=== PATIENT | male | born 1935 | race Caucasian/White ===

== ENCOUNTER 2017-11-22 06:05 | Day surgery (SDC) | payer MEDICARE ==
[2017-11-21 12:34] VITALS: BMI 32.4
[2017-11-22] MEDS ORDERED: Diprivan 40 ML ONE (07:45)
--- NOTE | 2017-11-22 10:41 | ECHO ---
TRANSESOPHAGEAL ECHOCARDIGRAM: Date: 11/22/17 INDICATION: Atrial fibrillation and flutter. DETAILS: The patient underwent a transesophageal echocardiogram after being given short-acting Propofol. There were no complications or difficulties encountered when passing the probe. IMPRESSION: 1. Mild to moderate decrease in left ventricular systolic function. Ejection fraction is estimated at 35-40%. 2. Left atrial dilatation, which is moderate. 3. No evidence of left atrial left atrial appendage thrombus. 4. Mild aortic valve regurgitation. 5. Moderate mitral valve regurgitation. 6. Moderate tricuspid valve regurgitation. There were no difficulties or complications encountered.
--- NOTE | 2017-11-22 10:46 | OP ---
ELECTRICAL CARDIOVERSION: Electrical cardioversion was performed for atrial fibrillation and flutter back to normal sinus rhyth m. The patient was in atrial fibrillation this morning and was advised to undergo and electrical card ioversion of his atrial fibrillation back to sinus rhythm. This 82-year-old gentleman who has a histo ry of an ischemic cardiomyopathy, AICD implant, and arrhythmias was having difficulties with the shahab ce to the atrial fibrillation and therapies were discontinued as far as the interrogation due to the settings. These will need to be reinstated once the patient remains in sinus rhythm. He was taken to the recovery area where he underwent short acting propofol. The transesophageal echocardiogram was pe rformed first, which showed no evidence of left atrial or left atrial appendage thrombus. Using one a ttempt at 300 joules, he was successfully cardioverted back to a normal sinus rhythm without difficul ties or complications.
--- NOTE | 2017-11-22 10:55 | DIS ---
ADMITTING DIAGNOSIS: 1. Atrial fibrillation and flutter, which was paroxysmal. He had been maintaining atrial fibrillatio n recently and was advised to undergo electrical cardioversion. 2. Cardiomyopathy. 3. Coronary artery disease, status post bypass surgery. 4. History of chronic obstructive pulmonary disease. 5. Diastolic dysfunction. 6. Systolic dysfunction. 7. Rheumatoid arthritis. 8. History of myocardial infarction. 9. Status post AICD implant. DISCHARGE DIAGNOSES: 1. Atrial fibrillation and flutter, which was paroxysmal. He had been maintaining atrial fibrillatio n recently and was advised to undergo electrical cardioversion. 2. Cardiomyopathy. 3. Coronary artery disease, status post bypass surgery. 4. History of chronic obstructive pulmonary disease. 5. Diastolic dysfunction. 6. Systolic dysfunction. 7. Rheumatoid arthritis. 8. History of myocardial infarction. 9. Status post AICD implant. PROCEDURES IN THE HOSPITAL: Transesophageal echocardiogram and an electrical cardioversion of atrial fibrillation back to normal sinus rhythm. ADMISSION/DISCHARGE MEDICATIONS: His discharge medications will be the same as his admission medications. These include hydroxychloro quine, albuterol sulfate aerosol inhaler, Symbicort, Zyrtec, aspirin, Nexium, nitroglycerin p.r.n., H umira, furosemide, Coreg, alprazolam, Eliquis and Cozaar. PLAN: The patient will see me in the office in next month. He will continue his routine followups with elec trophysiologist and is to see them next week in the office. HOSPITAL COURSE: This is a very pleasant 82-year-old gentleman with a history of cardiomyopathy, coronary artery disea se, status post bypass surgery, status post AICD implant, and atrial fibrillation and flutter. He was advised to undergo an electrical cardioversion of his atrial fibrillation so that we could reinstate his atrial therapies of the AICD. He underwent the transesophageal echocardiogram and cardioversion today without difficulties or complications. He has remained stable. If his blood pressure and heart rate remain stable, he will be discharged home in the next 2-3 hours. We will interrogate the AICD pr ior to releasing the patient from the recovery area.
[2017-11-22] MEDS ORDERED: Propofol 200 MG/20 ML VIAL ONE (12:35)
[2017-11-22] MEDS ORDERED: PHENYLEPHRINE-NS 100 MCG/ML 10 ML SYRINGE ONE (12:35)
== END 2017-11-22 11:25 | disposition home or self-care (01) ==
LOC: CCL 06:05
PROVIDERS: ATTEND Internal Medicine Cardiovascular Disease
DX: I48.0 Paroxysmal atrial fibrillation (principal); I48.3 Typical atrial flutter; I25.5 Ischemic cardiomyopathy; I25.10 Atherosclerotic heart disease of native coronary artery without angina pectoris; J44.9 Chronic obstructive pulmonary disease, unspecified; M06.9 Rheumatoid arthritis, unspecified; I25.2 Old myocardial infarction; K21.9 Gastro-esophageal reflux disease without esophagitis; I11.0 Hypertensive heart disease with heart failure; I50.40 Unspecified combined systolic (congestive) and diastolic (congestive) heart failure; J45.909 Unspecified asthma, uncomplicated; Z79.01 Long term (current) use of anticoagulants; Z79.82 Long term (current) use of aspirin; Z79.899 Other long term (current) drug therapy; Z88.0 Allergy status to penicillin; Z91.041 Radiographic dye allergy status; Z95.1 Presence of aortocoronary bypass graft; Z95.810 Presence of automatic (implantable) cardiac defibrillator; Z90.49 Acquired absence of other specified parts of digestive tract; Z98.890 Other specified postprocedural states; Z87.891 Personal history of nicotine dependence
CPT/HCPCS: 92960; 93312; J2704

== ENCOUNTER 2018-10-06 23:39 | Inpatient (IN) | payer MEDICARE ==
[2018-10-07 00:44] LABS: #Lymphocytes 1.2 thou/uL (1.20-3.40); #Monocytes 1.1 thou/uL (0.11-0.59); #Neutrophils 11.5 thou/uL (1.40-6.50); %Basophils 0.2 % (0.0-1.0); %Eosinophils 0.3 % (0.0-10.0); %Lymphocytes 8.7 % (21.0-51.0); %Monocytes 7.8 % (0.0-10.0); Hemoglobin 10.7 g/dL (14.0-18.0); Mean Corpuscular HGB CONC 31.8 g/dL (32.0-36.0); Mean Corpuscular Hemoglobin 28.6 pg (27.0-31.0); Mean Corpuscular Volume 89.9 fL (78.0-98.0); Mean Platelet Volume 7.4 fL (7.4-10.4); Platelet Count 289 thou/uL (130-400); Red Blood Cell (RBC) Count 3.74 mill/uL (4.70-6.10); White Blood Cell (WBC) Count 13.9 thou/uL (4.8-10.8)
[2018-10-07] MEDS ORDERED: Dexamethasone 4 MG TAB ONE (00:51)
[2018-10-07] MEDS ORDERED: HYDROcodone/Acetaminophen 10/325 mg Tablet ONE (00:51)
[2018-10-07 01:05] LABS: ALT (SGPT) 26 U/L (8-55); AST (SGOT) 26 U/L (5-34); Albumin 3.1 g/dL (3.4-4.8); Alkaline Phosphatase 58 U/L (40-150); Anion Gap 15 mmol/L (10-20); BUN (Urea Nitrogen) 35 mg/dL (8.4-25.7); Bilirubin, Total 0.9 mg/dL (0.2-1.2); Calc. Creatinine Clearance 0 mL/min (70-130); Calcium 9.2 mg/dL (7.8-10.44); Carbon Dioxide 26 mmol/L (23-31); Chloride 102 mmol/L (98-107); Estimated GFR-MDRD 54; Globulin 3.7 g/dL (2.4-3.5); Glucose 161 mg/dL (83-110); Magnesium 1.7 mg/dL (1.6-2.6); Potassium 3.7 mmol/L (3.5-5.1); Protein, Total 6.8 g/dL (5.8-8.1); Sodium 139 mmol/L (136-145)
[2018-10-07] MEDS ORDERED: Colchicine 0.6 MG TAB PO SCH (01:15)
[2018-10-07 02:09] LABS: CKMB 1.1 ng/mL (0-6.6); Troponin I 0.036 ng/mL (< 0.028)
[2018-10-07 03:06] LABS: Bilirubin Negative (Negative); Blood, Urine Negative (Negative); Clarity CLEAR (Clear); Glucose, Urine (Dipstick) Negative (Negative); Leukocyte Negative (Negative); Nitrite Negative (Negative); Protein, Urine (Dipstick) Negative (Neg-Trace); Specific Gravity, Urine 1.014 (1.002-1.036)
[2018-10-07] MEDS ORDERED: Norepinephrine 8 MG/0.9% NS 250 ML ONE (03:51)
[2018-10-07] MEDS ORDERED: Furosemide 20 MG/2 ML VIAL ONE (04:53)
[2018-10-07] MEDS ORDERED: Senokot S 8.6-50 MG TAB PO PRN (04:57)
[2018-10-07] MEDS ORDERED: CCU Electrolyte Replacement 1 EACH IVPB ONE (04:57)
[2018-10-07] MEDS ORDERED: Acetaminophen 325 MG TAB PO PRN (04:57)
[2018-10-07] MEDS ORDERED: Bisacodyl 5 MG TAB PO PRN (04:57)
[2018-10-07] MEDS ORDERED: Norepinephrine 8 MG/0.9% NS 250 ML IVPB PRN (04:57)
[2018-10-07] MEDS: Sodium Chloride 0.9% 1,000 ML IV SCH ×2 (05:00→21:16)
[2018-10-07] MEDS ORDERED: Nitroglycerin 0.4 MG TAB (25 Tab Bottle) SL PRN (05:02)
[2018-10-07] MEDS ORDERED: Adalimumab [Humira Pen] 40 MG IM SCH (05:15)
[2018-10-07] MEDS ORDERED: Magnesium Oxide 400 MG TAB PO PRN ×2 (05:29)
[2018-10-07] MEDS ORDERED: Potassium Chloride 40 MEQ in Sodium Chloride 0.9% 250 ML 250 ML IVPB PRN (05:29)
[2018-10-07] MEDS ORDERED: CCU ELECTROLYTE REPLACEMENT PROTOCOL FS PRN (05:29)
[2018-10-07] MEDS ORDERED: Potassium Chloride 20 MEQ TAB PO PRN (05:29)
[2018-10-07] MEDS ORDERED: Potassium Phosphate 15 MMOL in Sodium Chloride 0.9% 250 ML 250 ML IV PRN (05:29)
[2018-10-07] MEDS ORDERED: Magnesium 2 GM/NS 0.9% 100 ML 2 GM in Premix Bag 1 BAG IVPB PRN (05:29)
[2018-10-07] MEDS ORDERED: Potassium Chloride 40 MEQ in Premix Bag 1 BAG IVPB PRN (05:29)
[2018-10-07] MEDS ORDERED: Potassium Phosphate 12 MMOL in Sodium Chloride 0.9% 250 ML 250 ML IV PRN (05:29)
[2018-10-07] MEDS ORDERED: Potassium Phosphate 9 MMOL in Sodium Chloride 0.9% 100 ML IVPB PRN (05:29)
[2018-10-07 05:40] LABS: Troponin I 0.049 ng/mL (< 0.028)
[2018-10-07] MEDS ORDERED: Mometasone/Formoterol 120 PUFF INHALER INH SCH (06:30)
--- NOTE | 2018-10-07 08:06 | RAD ---
3 VIEWS LEFT WRIST: Date: 10/07/18 HISTORY: Left wrist pain, worse today. FINDINGS: AP, lateral, and oblique views of the left wrist obtained. There are extensive osteoarthritic changes seen in the first and second carpometacarpal joints. Later al intercarpal osteoarthritic change is also seen. No evidence of acute fractures or bony lesions seen. IMPRESSION: Left wrist osteoarthritis. POS: [facility]
[2018-10-07] MEDS ORDERED: Albumin 25% 25 GM/100 ML BOT IVPB SCH (08:45)
--- NOTE | 2018-10-07 08:49 | RAD ---
AP PELVIS: History: Atraumatic right hip pain. FINDINGS: The pelvis is unremarkable. No evidence of pelvic fractures, subluxations, or bony lesions seen. IMPRESSION: Unremarkable AP view pelvis. POS: [facility]
--- NOTE | 2018-10-07 08:55 | RAD ---
AP VIEW CHEST: Date: 10/07/18 HISTORY: Chest pain. FINDINGS: Comparison made to previous exam from 06/23/18. AP view chest demonstrates intracardiac defibrillator. Sternotomy wires seen. Sternal radiopaque hard regalado is also in place. There is some elevation of the left hemidiaphragm. Mild pulmonary vascular congestion seen. No eviden ce of pneumonia or pneumothorax seen. IMPRESSION: Elevation of the left hemidiaphragm. POS: [facility]
[2018-10-07] MEDS ORDERED: Carvedilol 25 MG TAB PO SCH (09:00)
[2018-10-07] MEDS ORDERED: Non-Formulary Item 1 EACH (Budesonide-Formoterol [Symbicort 160-4.5] 1 PUFF) INH SCH (09:00)
[2018-10-07] MEDS ORDERED: Famotidine/PF 20 mg/2ml Vial SLOW IVP SCH (09:00)
[2018-10-07] MEDS ORDERED: Enoxaparin Sodium 40 MG/0.4 ML SYRINGE SC SCH (09:00)
[2018-10-07] MEDS: Aspirin 81 mg Enteric Coated Tablet PO SCH (09:12)
[2018-10-07] MEDS: Famotidine 20 MG TAB PO SCH ×2 (09:12→20:41)
[2018-10-07] MEDS: Apixaban 5 MG TAB PO SCH ×2 (09:28→20:41)
[2018-10-07 09:55] LABS: Troponin I 0.036 ng/mL (< 0.028)
--- NOTE | 2018-10-07 10:12 | HP ---
CHIEF COMPLAINT: Right toe pain. HISTORY OF PRESENT ILLNESS: This is an 83-year-old male with past medical history significant for unspecified cardiac arrhythmias, cardiomyopathy, asthma, GERD, rheumatoid arthritis, CABG x4, and hypertension, who is presenting with bilateral lower extremity pain. The patient stated that he also has a history of gout and he is having like gout flare up. The patient states that he was eating a lot of meat and drinking some beer, and every time when he drinks beer and he eats a lot of beef, he gets the symptoms of gout flare. At this point, the patient states that he is feeling well. He does not have any fever, chills, nausea, vomiting, diarrhea, constipation, dysuria, hematuria, melena, hematochezia. However, the patient admits to having some 8/10 bilateral toe pain due to gout. Of note, when the patient came in for symptoms of gout, the patient's blood pressure was seen to be in the 80s systolic. The patient was given some fluid boluses; however, the patient's blood pressure did not respond, so a central line was placed and the patient was sent to the ICU due to the low blood pressures. Upon investigating and talking to the patient, the patient states that his blood pressure had been on the low 90s; however, his baseline is normally around 150, but this is new for him to have low blood pressures. REVIEW OF SYSTEMS: Positive for joint pain, specifically the second and third middle toes bilaterally. The patient states that he has mild constipation, otherwise as documented in the HPI. All other systems were reviewed and are negative. FAMILY HISTORY: Noncontributory to this visit. PAST SURGICAL HISTORY: 1. Status post AICD on 09/06/2017. 2. Appendectomy. 3. Laparoscopic cholecystectomy. 4. Coronary artery bypass and graft x4 vessels. PSYCH HISTORY: No previous psych history. SOCIAL HISTORY: The patient denies alcohol use. Denies any illicit drug use. The patient denies any smoking history. ALLERGIES: THE PATIENT IS ALLERGIC TO IODINE AND PENICILLIN. CURRENT MEDICATIONS: The patient is on: 1. Eliquis 5 mg. 2. Carvedilol. 3. Humira. 4. Aspirin. 5. Torsemide. 6. Lisinopril. PHYSICAL EXAMINATION: VITAL SIGNS: Blood pressure is 98/54, pulse of 75, respiratory rate of 19, and temperature of 98.5. GENERAL: The patient is alert and oriented x3, not in acute distress. The patient is lying in bed, able to speak in full sentences. HEENT: Normocephalic and atraumatic. Pupils are equally round and reactive to light. Extraocular movements are intact. No scleral icterus. No conjunctival pallor. NECK: Trachea is midline. Full range of motion. No JVD noted. RESPIRATORY: Clear to auscultation bilaterally. No wheezing, no rales, no rhonchi is appreciated. CARDIAC: Positive S1 and S2. Regular rate and rhythm. No murmurs. No gallops. No rubs appreciated. ABDOMEN: Obese abdomen. Soft, nontender, nondistended. Positive bowel sounds in all quadrants. EXTREMITIES: The patient has 5/5 upper extremity strength, and the patient does have left wrist gout tophi at the radial aspect. On the ulnar side, the patient has warm joint at the ulnar side of the joint. Lower extremities, the patient does have mild tenderness and erythema noted at the second and third toes bilaterally. There is no edema. NEUROLOGIC: Cranial nerves 2 through 12 grossly intact. No neurologic deficits noted. SKIN: Warm, dry, and intact. The patient does have erythema at the left wrist and also at the left toes bilaterally. PSYCH: The patient is alert and oriented x3, not in acute distress. The patient has normal affect. DIAGNOSTIC DATA: EKG shows paced rhythm. LABORATORY DATA: WBC is 13.9, hemoglobin is 10.7, hematocrit 33.6, MCV 89.9, RDW 13.0, platelet count is 289. Sodium is 139, potassium is 3.7, chloride is 102, carbon dioxide of 26, anion gap of 15, BUN is 35, creatinine is 1.28, glucose 161, lactic acid is 1.6, calcium is 9.2, magnesium 1.7. Troponins 0.036, 0.049 respectively. TSH is 0.9. Urinalysis is negative. ASSESSMENT AND PLAN: This is an 83-year-old male with past medical history significant for cardiomyopathy, coronary artery disease, being admitted for decompensated heart failure. At this point, the patient has a central line placed and the patient is on Levophed. We have admitted the patient to the ICU. We will monitor the patient closely. 1. Cardiomyopathy with ejection fraction of 35% to 40%. At this point, we will monitor the patient. The patient does have acute congestive heart failure at this time. We will continue to give the patient Levophed and we will monitor the patient in the ICU. 2. Chronic obstructive pulmonary disease exacerbation. The patient was given Levaquin in the ED. We will continue the patient on Levaquin empirically in the hospital. 3. Acute systolic heart failure. We will continue the patient on current management. 4. Rheumatoid arthritis. We will continue the patient on his home medications. 5. Status post automatic implantable cardioverter defibrillator implant. We will continue to monitor the patient closely at this time. The patient is on Eliquis for possible atrial fibrillation. We will continue the patient on Eliquis as well. 6. Atrial fibrillation and atrial flutter. The patient is on anticoagulation. We will continue the patient on his anticoagulation. 7. Deep venous thrombosis and gastrointestinal prophylaxis. Job ID: [id number]
[2018-10-07] MEDS: Hydroxychloroquine Sulfate 200 MG TAB PO SCH ×2 (10:30→20:42)
[2018-10-07] MEDS: Hydrocortisone Sod Succ/PF 100 mg/2 ml Vial IVP SCH ×3 (12:31→23:34)
--- NOTE | 2018-10-07 12:51 | CON ---
DATE OF CONSULTATION: HISTORY OF PRESENT ILLNESS: Donny Rogers is an 83-year-old gentleman, well known to me, presented to the hospital with severe right hip pain. He has had an injury to the hip about 20 years ago, worsening pain, and he was unable to walk. He has known history of gout. In the ER, he was found to be hypotensive and started on Levophed in the ICU at this time. This morning, he denies any cough, any chest pain, shortness of breath, wheezing, orthopnea, or PND. He said his hip pain is still persistent. PAST MEDICAL HISTORY: Pertinent for; 1. COPD. 2. CHF. 3. Coronary artery disease. 4. Rheumatoid arthritis. 5. History of gout. 6. Hypertension. 7. Reflux. PAST SURGICAL HISTORY: Bypass surgery, cholecystectomy, appendix, and previous endoscopy. ALLERGIES: PENICILLIN AND DYE. MEDICATIONS: His list of medications from home include: 1. Nitroglycerin. 2. Plaquenil 200 twice a day. 3. Coreg 3.125 twice a day. 4. Symbicort twice a day. 5. Aspirin once a day. 6. Eliquis 5 twice a day. 7. Humira 40. 8. Losartan one a day. 9. Lasix 20. TOBACCO: Former smoker. ALCOHOL: None. REVIEW OF SYSTEMS: Otherwise, 10-point negative. PHYSICAL EXAMINATION: GENERAL: He is awake, alert, and responsive. His saturations are 94% on room air. Pulse is 78, blood pressure is 113/73, and respirations 16. He is afebrile. CHEST: Decreased breath sounds. No wheezing. CARDIAC: Normal S1 and S2. No gallops . LABORATORY DATA: Creatinine is 1.28. White count is 13,000, hemoglobin and hematocrit are 10 and 30, platelet count normal. IMPRESSION: 1. Severe hip pain, arthritis. 2. Hypertension. 3. Coronary artery disease. 4. Congestive heart failure. PLAN: 1. Stress test has been initiated. 2. Wean and taper Levophed. 3. I doubt he is septic. 4. He is volume depleted. 45 minutes critical time. Job ID: [id number]
--- NOTE | 2018-10-07 16:07 | PDOC.PN ---
- Subjective Encounter Start Date: 10/07/18 Encounter Start Time: 16:05 Subjective: alert, pain much decreased, no dizziness - Objective Resuscitation Status - Order Detail: 10/07/18 04:57 Resuscitation Status Routine Resuscitation Status: FULL: Full Resuscitation MAR Reviewed: Yes Vital Signs & Weight: Vital Signs (12 hours) Temp Pulse Pulse BP BP Pulse Ox 10/07/18 13:30 78 87 131/78 116/72 10/07/18 12:00 98 F 10/07/18 08:00 97.8 F 98 10/07/18 06:00 97.8 F 95 Weight Admit Weight 185 lb Weight 185 lb 3.013 oz Most Recent Monitor Data Heart Rate from ECG 84 NIBP 131/78 NIBP BP-Mean 95 Respiration from ECG 19 SpO2 97 I&O: 10/06/18 10/07/18 10/08/18 06:59 06:59 06:59 Intake Total 480 Output Total 0 440 Balance 0 40 Result Diagrams: 10/07/18 00:35 10/07/18 00:35 Additional Labs: Accuchecks 10/07/18 00:00 POC Glucose 159 H Phys Exam - Physical Examination Neck: no JVD Respiratory: clear to auscultation bilateral Cardiovascular: no significant murmur, irregular Gastrointestinal: soft, positive bowel sounds Musculoskeletal: no edema Dx/Plan (1) Cardiomyopathy Code(s): I42.9 - CARDIOMYOPATHY, UNSPECIFIED Status: Acute Qualifiers: Cardiomyopathy type: ischemic Qualified Code(s): I25.5 - Ischemic cardiomyopathy (2) COPD exacerbation Code(s): J44.1 - CHRONIC OBSTRUCTIVE PULMONARY DISEASE W (ACUTE) EXACERBATION Status: Acute (3) CAD (coronary artery disease) Code(s): I25.10 - ATHSCL HEART DISEASE OF [place] CORONARY ARTERY W/O ANG PCTRS Status: Acute Qualifiers: Coronary Disease-Associated Artery/Lesion type: [place] artery [place] vs. transplanted heart: [place] heart Associated angina: without angina Qualified Code(s): I25.10 - Atherosclerotic heart disease of [place] coronary artery without angina pectoris (4) HTN (hypertension) Code(s): I10 - ESSENTIAL (PRIMARY) HYPERTENSION Status: Chronic Qualifiers: Hypertension type: essential hypertension Qualified Code(s): I10 - Essential (primary) hypertension (5) CKD (chronic kidney disease), stage III Code(s): N18.3 - CHRONIC KIDNEY DISEASE, STAGE 3 (MODERATE) Status: Chronic (6) Acute gout Code(s): M10.9 - GOUT, UNSPECIFIED Status: Acute Qualifiers: Gout site: wrist Gout etiology: unspecified cause Laterality: left Qualified Code(s): M10.9 - Gout, unspecified (7) Rheumatoid arthritis Code(s): M06.9 - RHEUMATOID ARTHRITIS, UNSPECIFIED Status: Chronic - Plan off pressors. acute arthritis resolved -: cont selected home meds, reinstitute ARB/diuretic as able -: cont aggressive tx copd -: uric acid * .
[2018-10-07] MEDS: Mometasone/Formoterol 120 PUFF INHALER INH SCH (19:19)
[2018-10-08 05:05] LABS: #Lymphocytes 0.7 thou/uL (1.20-3.40); #Monocytes 0.3 thou/uL (0.11-0.59); #Neutrophils 7.7 thou/uL (1.40-6.50); %Eosinophils 0.1 % (0.0-10.0); %Lymphocytes 8.5 % (21.0-51.0); %Neutrophils 88.4 % (42.0-75.0); Hemoglobin 9.4 g/dL (14.0-18.0); Mean Corpuscular HGB CONC 32.9 g/dL (32.0-36.0); Mean Corpuscular Hemoglobin 29.6 pg (27.0-31.0); Mean Corpuscular Volume 89.9 fL (78.0-98.0); Platelet Count 263 thou/uL (130-400); RBC Distribution Width 13.3 % (11.5-14.5); Red Blood Cell (RBC) Count 3.18 mill/uL (4.70-6.10); White Blood Cell (WBC) Count 8.7 thou/uL (4.8-10.8)
[2018-10-08 05:24] LABS: Anion Gap 13 mmol/L (10-20); BUN (Urea Nitrogen) 35 mg/dL (8.4-25.7); Calc. Creatinine Clearance 64 mL/min (70-130); Calcium 9.2 mg/dL (7.8-10.44); Carbon Dioxide 28 mmol/L (23-31); Chloride 104 mmol/L (98-107); Estimated GFR-MDRD 65; Glucose 212 mg/dL (83-110); Potassium 3.6 mmol/L (3.5-5.1); Sodium 141 mmol/L (136-145); Uric Acid 10.3 mg/dL (3.5-7.2)
[2018-10-08] MEDS: Hydrocortisone Sod Succ/PF 100 mg/2 ml Vial IVP SCH ×3 (05:55→17:44)
[2018-10-08] MEDS: Sodium Chloride 0.9% 1,000 ML IV SCH (05:55)
[2018-10-08] MEDS: Mometasone/Formoterol 120 PUFF INHALER INH SCH ×2 (08:09→18:49)
--- NOTE | 2018-10-08 08:36 | CON ---
DATE OF CONSULTATION: 10/07/2018 INDICATION FOR CONSULTATION: An 83-year-old patient, who was admitted with complaints of pain due to gout and was found to have hypotension, started on Levophed, placed on intensive care unit. He does have a history of coronary artery disease, had bypass surgery. He has had a biventricular pacemaker placed. He also has a history of atrial fibrillation. He was completely asymptomatic with the hypertension. Apparently, his blood pressure has recovered and is somewhat improved now. He denied any chest pain or shortness of breath. Blood pressure at this time is 124/68, but earlier, it was, I believe, in the 80s and 90s systolically. Otherwise, he has had no complaints except for his pain with the arthritis. He was scheduled in the near future to undergo an ablation of atrial fibrillation by the chef's assistant. At this time, otherwise, he is stable. He has no indication that he has any significant congestive heart failure. His lungs are clear. He has no edema. He has had no shortness of breath. His laboratory data shows WBCs of 13.9. His BNP seemed to be elevated, it was 341, no compatible with significant congestive heart failure. His creatinine was 1.28 and his cardiac enzymes were indeterminant at 0.036, and remains at 0.036. He did have one slight increase to 0.049, but right now, it is 0.036 and not indicative of myocardial infarction. Otherwise, he remains stable. As far as his cardiac status at this time, I believe he is stable except for the hypertension, uncertain why he had hypertension, but this time, this is also resolved. It could be that he was slight on the dry side and he has not had volume replacement. PAST MEDICAL HISTORY: Please refer to the note that is dictated by my nurse practitioner, Paxton Greene. SOCIAL HISTORY: Please refer to the note that is dictated by my nurse practitioner, Paxton Greene. FAMILY HISTORY: Please refer to the note that is dictated by my nurse practitioner, Paxton Greene. REVIEW OF SYSTEMS: Please refer to the note that is dictated by my nurse practitioner, Paxton Greene. MEDICATIONS: Please refer to the note that is dictated by my nurse practitioner, Paxton Greene. ALLERGIES: PLEASE REFER TO THE NOTE THAT IS DICTATED BY MY NURSE PRACTITIONER, PAXTON GREENE. PHYSICAL EXAMINATION: GENERAL: Reveals a very pleasant well-developed and well-nourished gentleman. VITAL SIGNS: Blood pressure 124/68, heart rate is 83, initially was pacing, but appears underlying atrial fibrillation, respiratory rate is 22, 97% O2 saturations. HEENT: Shows the head to be normocephalic and atraumatic. NECK: Carotid pulses are present. CHEST: Clear to auscultation. I did not hear rales, rhonchi, or wheezing. CARDIOVASCULAR: Reveals a somewhat irregular rhythm at this time. He denied any significant murmurs, heaves, thrills, bruits, or rubs. ABDOMEN: Soft and nontender. Some obesity. Positive bowel sounds are present. He has a right central catheter in the right groin area. EXTREMITIES: Showed no clubbing or cyanosis. There is no significant edema. NEUROLOGIC: The patient appears to be intact. IMPRESSION: 1. Gout exacerbation with hypotension, uncertain etiology, perhaps due to decrease in volume. He has recovered from this after being given medications and volume, and appears to be stable at this time. 2. History of coronary artery disease. This also appears to be stable at this time. There is no indication he has any ischemia, no indication he has myocardial infarction. 3. History of congestive heart failure in the past, but this time, he appears to be stable. I do not see any indication that the patient has any congestive heart failure at this time. His chest x-ray show only elevation of hemidiaphragm, but no evidence of congestion that would indicate heart failure. 4. Atrial fibrillation. He is scheduled to undergo ablation of the atrial fibrillation in the near future by the chef's assistant. At this time, overall cardiac status is stable. We will be more than happy to continue to follow the patient with you. We may need to adjust some of his medications if he becomes hypotensive. He is not on any significant amount of medications, but he was taking losartan/hydrochlorothiazide 100/12.5 once a day as well as Coreg 25 mg. He has taken only 3.125 mg twice a day n.p.o. and nitroglycerin as needed, but he does not take any for some time. We will be more than happy to continue to follow the patient with you, but somewhat continue to treat him symptomatically and within the next day or two, he has improved, he should be able to be discharged to home. Job ID: [id number]
[2018-10-08] MEDS ORDERED: HYDROCHLOROTHIAZIDE PO SCH (09:00)
[2018-10-08] MEDS ORDERED: LOSARTAN PO SCH (09:00)
[2018-10-08] MEDS: Aspirin 81 mg Enteric Coated Tablet PO SCH (09:51)
[2018-10-08] MEDS: Famotidine 20 MG TAB PO SCH (09:51)
[2018-10-08] MEDS: Apixaban 5 MG TAB PO SCH ×2 (09:51→21:08)
[2018-10-08] MEDS ORDERED: Losartan 25 MG TAB PO SCH (10:15)
[2018-10-08] MEDS ORDERED: Hydrochlorothiazide 25 MG TAB PO SCH (10:15)
[2018-10-08] MEDS ORDERED: Furosemide 20 MG TAB PO SCH (10:15)
--- NOTE | 2018-10-08 10:30 | PDOC.PN ---
- Subjective Encounter Start Date: 10/08/18 Encounter Start Time: 10:28 Subjective: no chest pain, sob or dizziness. still has chronic hip pain - Objective Resuscitation Status - Order Detail: 10/07/18 04:57 Resuscitation Status Routine Resuscitation Status: FULL: Full Resuscitation MAR Reviewed: Yes Vital Signs & Weight: Vital Signs (12 hours) Temp 10/08/18 08:00 98 F 10/08/18 04:00 97.5 F L 10/08/18 00:00 98.1 F Weight Admit Weight 185 lb Weight 188 lb 14.978 oz Most Recent Monitor Data Heart Rate from ECG 95 NIBP 106/76 NIBP BP-Mean 86 Respiration from ECG 31 SpO2 91 I&O: 10/07/18 10/08/18 10/09/18 06:59 06:59 06:59 Intake Total 1714 220 Output Total 0 840 250 Balance 0 874 -30 Result Diagrams: 10/08/18 04:39 10/08/18 04:39 Phys Exam - Physical Examination Neck: no JVD Respiratory: clear to auscultation bilateral Cardiovascular: no significant murmur, irregular Gastrointestinal: soft, positive bowel sounds Musculoskeletal: no edema Dx/Plan (1) Cardiomyopathy Code(s): I42.9 - CARDIOMYOPATHY, UNSPECIFIED Status: Acute Qualifiers: Cardiomyopathy type: ischemic Qualified Code(s): I25.5 - Ischemic cardiomyopathy (2) COPD exacerbation Code(s): J44.1 - CHRONIC OBSTRUCTIVE PULMONARY DISEASE W (ACUTE) EXACERBATION Status: Acute (3) CAD (coronary artery disease) Code(s): I25.10 - ATHSCL HEART DISEASE OF [place] CORONARY ARTERY W/O ANG PCTRS Status: Acute Qualifiers: Coronary Disease-Associated Artery/Lesion type: [place] artery [place] vs. transplanted heart: [place] heart Associated angina: without angina Qualified Code(s): I25.10 - Atherosclerotic heart disease of [place] coronary artery without angina pectoris (4) HTN (hypertension) Code(s): I10 - ESSENTIAL (PRIMARY) HYPERTENSION Status: Chronic Qualifiers: Hypertension type: essential hypertension Qualified Code(s): I10 - Essential (primary) hypertension (5) CKD (chronic kidney disease), stage III Code(s): N18.3 - CHRONIC KIDNEY DISEASE, STAGE 3 (MODERATE) Status: Chronic (6) Acute gout Code(s): M10.9 - GOUT, UNSPECIFIED Status: Acute Qualifiers: Gout site: wrist Gout etiology: unspecified cause Laterality: left Qualified Code(s): M10.9 - Gout, unspecified (7) Rheumatoid arthritis Code(s): M06.9 - RHEUMATOID ARTHRITIS, UNSPECIFIED Status: Chronic Qualifiers: Rheumatoid factor presence: unspecified presence Laterality: unspecified laterality - Plan finaly obtained correct meds, will institute -: cont solu-crtef for acute inflamatio -: move to tele -: home soon * .
--- NOTE | 2018-10-08 10:58 | PRG ---
DATE OF SERVICE: 10/08/2018 SUBJECTIVE: Donny Rogers stated he is doing better this morning. Less cough. Less shortness of breath. OBJECTIVE: VITAL SIGNS: Blood pressure 120/65, sats 98% room air, respirations 18, and pulse 76. CHEST: Decreased breath sounds. No wheezing. CARDIAC: Normal S1 and S2. No gallops or masses. LABORATORY DATA: White count 8000, hemoglobin and hematocrit 9 and 28, and platelet count 263. His lytes normal. IMPRESSION: 1. Congestive heart failure. 2. Coronary artery disease. 3. Chronic obstructive pulmonary disease. 4. Chronic hip pain. PLAN: Continue present medication. I am going to see whether Pain Management can see the patient while in the hospital. continue supportive care. Job ID: [id number] MTDD
[2018-10-08] MEDS: traMADol HCl 50 MG TAB PO PRN ×2 (12:26→17:40)
[2018-10-08] MEDS: Carvedilol 6.25 MG TAB PO SCH (17:43)
--- NOTE | 2018-10-08 17:44 | CON ---
DATE OF CONSULTATION: TYPE OF CONSULTATION: Cardiology HISTORY OF PRESENT ILLNESS: Mr. Rogers is an 83-year-old male with a significant history of ischemic cardiomyopathy with AICD placement, coronary artery disease with history of CABG x4, hypertension, GERD, asthma, rheumatoid arthritis, and gout. The patient presents to the emergency department for worsening of gout since Saturday. He was prescribed prednisone, which he finished the regimen last Saturday, and then from Saturday, he started having pain similar to his gout, which became worse, so the patient presents to the emergency department for the treatment. When he was in the emergency department, the patient's blood pressure tended to be low, and norepinephrine was started; however, once the patient was transferred to the CCU, the patient's vital signs were stable, and the patient's Levophed was stopped. The patient received one dose of albumin. The patient denied any chest pain, heaviness, tiredness, palpitation, or fluttering in his chest. He denies lightheadedness or any other cardiac complaints. He denied any swelling to the bilateral lower extremities, distended abdomen, except that he has a swelling from the gout flare. The patient has a history of CABG x4 in January 2014. The patient had a stress test in August 2018, which shows no evidence of reversible ischemia with EF of 37%. Echocardiogram was done in November [address] Aponte' office, which showed EF of 35% to 40%, moderate left atrial dilation, mild aortic valve regurgitation, moderate mitral valve regurgitation, and moderate tricuspid regurgitation. The patient had a STEPHANIE and a cardioversion in November 2017 for history of atypical atrial flutter. Since then, the patient has been in sinus rhythm. Status post defibrillator placement, which was updated to Bi-V AICD in September 2017. The patient had a carotid Doppler study done in November 2016, which showed mild atherosclerosis plaque and a calcification in bilateral internal carotid arteries. PAST MEDICAL HISTORY: 1. Coronary artery disease. 2. Ischemic cardiomyopathy. 3. Type 2 diabetes. 4. Atrial fibrillation/atrial flutter. 5. Bilateral carotid artery disease. 6. Hypertension. 7. COPD. 8. Systolic congestive heart failure. 9. Osteoarthritis. 10. GERD. 11. Gout. 12. The patient has a history of GI bleed after he started taking Xarelto. PAST SURGICAL HISTORY: Four-vessel CABG in 2013, AICD placement in 2013, appendectomy, cholecystectomy, tonsillectomy, and AICD update to Bi-V AICD in September 2017, STEPHANIE and a cardioversion in November 2017. SOCIAL HISTORY: He denies EtOH or illicit drug abuse. He is an ex-smoker, which he quit more than 20 years ago. He is , living with his . The patient has a good family support, his daughter, who is living well. ALLERGIES: HE IS ALLERGIC TO PENICILLIN, IV DYE, AND IODINE. HOME MEDICATIONS: 1. Zyrtec 10 mg once a day. 2. Aspirin 81 mg once a day. 3. Symbicort 80/4.5 one puff b.i.d. as needed. 4. Nitroglycerin sublingual as needed. 5. Plaquenil 200 mg twice a day. 6. Coreg 12.5 mg once a day. 7. Xanax 0.5 mg once a day as needed. 8. Albuterol sulfate 2 puffs every 4 to 6 hours as needed. 9. Cozaar 100 mg once a day. 10. Eliquis 5 mg twice a day. 11. Humira injection every 2 weeks. 12. Torsemide 20 mg once a day. REVIEW OF SYSTEMS: Twelve-point review of systems was reviewed, and all were negative unless otherwise mentioned below. The patient states that he does not eat meat or drink alcohol, but he eats tons of vegetables, of which some vegetables cause the gout, which is red cabbage, tomatoes, cauliflowers, asparagus, and other vegetables. He used to follow a Mediterranean diet, which he cannot do right now, so sometimes he has constipation. PHYSICAL EXAMINATION: VITAL SIGNS: Blood pressure is 131/78, pulse is 84, Bi-V pacing, O2 saturations is 97% with room air, respiratory rate is 20. GENERAL: The patient is alert and oriented x4, not in acute distress unless he moves. HEENT: Head, normocephalic and atraumatic. Eyes, extraocular muscle movements are intact. ENT and mouth, oral and nasal mucosa are moist without lesions. NECK: No JVD. Neck is supple. Normal range of motion. LUNGS: Clear to auscultation bilaterally. No wheezing, rhonchi, or rales noted. CARDIOVASCULAR: Regular rate and rhythm at this moment. No murmur, heave, or thrill noted. Carotid pulses are present without bruit at this moment. There is no edema in the lower extremities 2+ pulses in upper and lower extremities. ABDOMEN: Soft, nontender. No masses palpated. Bowel sounds are present. SKIN: Warm and dry. No lesion, rash, or hematoma noted. MUSCULOSKELETAL: The patient is able to move all extremities; however, the patient complains of pain to the right hip joint, which is mildly stable at this moment. The patient denied claudication. PSYCHIATRIC: The patient's mood is appropriate. NEUROLOGIC: Nonfocal. LABORATORY DATA: WBC 13.9, hemoglobin 10.7, hematocrit 33.6, and platelets 289. Chemistry; sodium 139, potassium 3.7, BUN 35, and creatinine 1.28. BNP 341. Troponin is 0.036, 0.049, 0.036. TSH IMAGING DATA: unremarkable. Chest x-ray is showing an elevation of the left hemidiaphragm. ASSESSMENT AND PLAN: 1. Gout flare. The patient's condition is stable at this moment. The patient is on Plaquenil. the patient's condition is stable at this moment. We would like to defer the to the patient's primary care doctor. 2. Systolic heart failure. The patient's condition is stable at this moment. The patient's blood pressure is stable at this moment. We would like to resume the patient's home medications with a low dose, and we would like to resume the patient's diuretic also. 3. Ischemic cardiomyopathy with automatic implantable cardioverter-defibrillator placement. Again, the patient's condition is stable at this moment. We would like to continue monitor on the telemetry. 4. Coronary artery disease with history of coronary artery bypass graft x4 in 2013. Again, the patient's condition is stable at this moment. We would like to resume beta-jake with RADHA inhibitor at a low dose. He is on aspirin 81 mg. 5. History of atrial fibrillation and atrial flutter. EKG is showing sinus rhythm at this moment with Bi-V paced. We would like to continue monitor the patient on Eliquis 5 mg twice a day . We would like to start some beta-jake for this patient. Thank you very much for allowing the cardiology service to participate in the care of this patient. We will follow along with the patient's care team and make further recommendations as appropriate. Job ID: [id number]
[2018-10-08] MEDS: Hydroxychloroquine Sulfate 200 MG TAB PO SCH (20:32)
--- NOTE | 2018-10-08 21:11 | PDOC.CTH ---
Cardiology Progress Note - Subjective Pt. seen and eval. by me. No cardiac complaints. He still has some discomfort from hr gout. - Objective Vital Signs Temp Pulse Resp BP BP Pulse Ox 10/08/18 18:49 85 18 96 10/08/18 17:43 129/70 10/08/18 16:00 98.1 F 86 21 H 129/70 98 10/08/18 14:00 96.7 F L 89 22 H 131/78 99 10/08/18 12:00 98 F 96 Admit Weight 185 lb Weight 188 lb 14.978 oz 10/07/18 10/08/18 10/09/18 06:59 06:59 06:59 Intake Total 1714 764 Output Total 0 840 250 Balance 0 874 514 - Physical Examination General/Neuro: alert & oriented x3 Neck: carotid US brisk Lungs: CTA Heart: RRR, other: (some ectopy. Appears to be in underlying afib.) Abdomen: soft Extremities: other: (no lower extremity edema) - Labs Result Diagrams: 10/08/18 04:39 10/08/18 04:39 Troponin/CKMB CK-MB (CK-2) 1.1 ng/mL (0-6.6) 10/07/18 00:35 Troponin I 0.036 ng/mL (< 0.028) H 10/07/18 08:34 - Assessment/Plan 1. Gout attack. Somewhat improving. 2. CHF , Diastolic. The EF is reasonable well preserved ( see echo report). 3. CAD: stable 4. Atrial fibrillation. I believe that he is scheduled for an ablation later this month. 5. HTN : reasonably well controlled. 6. COPD 7. CKD the overall cardiac status is stable.Pt. could be transferred to the tele floor.
[2018-10-09] MEDS: Hydrocortisone Sod Succ/PF 100 mg/2 ml Vial IVP SCH ×2 (00:09→06:32)
[2018-10-09] MEDS: traMADol HCl 50 MG TAB PO PRN ×3 (00:11→12:34)
[2018-10-09] MEDS: Mometasone/Formoterol 120 PUFF INHALER INH SCH (07:37)
[2018-10-09] MEDS: Aspirin 81 mg Enteric Coated Tablet PO SCH (08:56)
[2018-10-09] MEDS: Carvedilol 6.25 MG TAB PO SCH (08:56)
[2018-10-09] MEDS: Apixaban 5 MG TAB PO SCH (08:56)
[2018-10-09] MEDS ORDERED: Furosemide 20 MG TAB PO SCH (09:00)
[2018-10-09] MEDS ORDERED: Hydrochlorothiazide 25 MG TAB PO SCH (09:00)
[2018-10-09] MEDS ORDERED: Losartan 25 MG TAB PO SCH (09:00)
[2018-10-09] MEDS ORDERED: Lisinopril 5 MG TAB PO SCH (09:00)
--- NOTE | 2018-10-09 11:37 | PRG ---
DATE OF SERVICE: SUBJECTIVE: This morning he is having significant pain in his right hip. He is less short of breath. OBJECTIVE: VITAL SIGNS: Sats 93% room air, temperature 97, pulse 85, respiratory rate 18, blood pressure 120/65. CHEST: Decreased breath sounds. No wheezing. CARDIAC: Normal S1, S2. No gallop or murmurs. IMPRESSION: Coronary artery disease, chronic obstructive pulmonary disease, severe right hip pain. PLAN: We are trying to refer him to Pain Management. I have discussed this with the charge nurse. If he gets discharged, hopefully he can see pain management in the next 24 to 48 hours. In the meantime, we will switch him over to oral prednisone for about a week. Job ID: [id number] MTDD
--- NOTE | 2018-10-09 12:24 | DIS ---
DATE OF ADMISSION: 10/07/2018 DATE OF DISCHARGE: 10/09/2018 PRIMARY CARE PROVIDER: Dr. Merlin Bang. DISPOSITION: Discharged home. FINAL DIAGNOSES: 1. Angjw-gw-usmcmcn systolic heart failure. 2. Atrial fibrillation. 3. Coronary artery disease. 4. Chronic obstructive pulmonary disease. No exacerbation. 5. Rheumatoid arthritis. 6. Chronic kidney disease, stage 3. 7. Moderate aortic stenosis, pacemaker defibrillator. DISCHARGE MEDICINES: 1. Prednisone 20 mg a day x7 days. 2. Tramadol 25 mg p.o. q.6 hours p.r.n. pain. 3. Coreg 12.5 mg p.o. b.i.d. 4. Lisinopril 5 mg p.o. b.i.d. 5. Humira weekly. 6. Eliquis 5 mg p.o. b.i.d. 7. Symbicort 80/4.5 one puff b.i.d. ALLERGIES: IODINATED CONTRAST, PENICILLINS. CODE STATUS: Full. DIET: Heart healthy. PENDING AT TIME OF DISCHARGE: Nothing. HOSPITAL COURSE: The patient was admitted to the hospital through the [facility]. The patient was found to have low blood pressure, given some fluid boluses. He was sent to the ICU. He was seen in consultation by Dr. Ge Melton. At that time, he was seen, being complaining of hip pain. The Levophed was tapered. He was considered to be volume depleted. Diuretics were stopped. He was seen in consultation by Dr. Wilton Aponte. He has a history of congestive heart failure and cardiomyopathy. His echocardiogram showed 55% ejection fraction with suggestion of diastolic dysfunction. He had been on diuretics prior to his discharge. Because of his pain, he was put on some tramadol, which has been successfully treating his pain. The patient has an appointment with Dr. Eastman for ablation on the atrial fibrillation on the 13 of this month. LABORATORY DATA: The patient's laboratory during his hospital stay; his initial comprehensive metabolic profile showed a GFR of 54, followup was 65. He had mildly elevated troponins of 0.036, 0.049, 0.036, which were considered to be just from his initial diminished glomerular filtration rate. Cortisol was checked, it was normal. Thyroid was checked, it was normal. The patient is doing well except for his continuing pain. He did have AP pelvis films, which were unremarkable. Wrist films, which showed no changes except osteoarthritis. Chest x-ray demonstrates the cardiac defibrillator, sternotomy wires, elevated hemidiaphragm. The patient is being discharged at this time for followup with Dr. Bang in 7 days. He will follow up with Dr. Eastman on the of this month for an ablation. His diuretic has been held because of the hypotension and increased BUN-creatinine on admission. He has been stable without diuretics. PROCEDURES: None. STATUS AT THE TIME OF DISCHARGE: Stable cardiorespiratory status. Job ID: [id number]
[2018-10-09 12:33] VITALS: BP 138/75; TEMP 97.7
--- NOTE | 2018-10-09 12:59 | PDOC.CTH ---
Cardiology Progress Note - Subjective The pt seen and examined. No overnight events. No cardiac complaints. - Objective Vital Signs Temp Pulse Resp BP Pulse Ox 10/09/18 12:31 97.7 F 76 16 138/75 95 10/09/18 07:41 97.5 F L 85 18 123/65 96 10/09/18 07:37 103 H 20 10/09/18 04:00 97.6 F 77 20 127/81 95 Admit Weight 185 lb Weight 188 lb 9.6 oz 10/08/18 10/09/18 10/10/18 06:59 06:59 06:59 Intake Total 1714 764 Output Total 840 250 Balance 874 514 - Physical Examination General/Neuro: alert & oriented x3 Neck: no JVD present Lungs: CTA Heart: RRR Abdomen: soft Extremities: other: - Telemetry Telemetry Rhythm: V paced - Labs Result Diagrams: 10/08/18 04:39 10/08/18 04:39 Troponin/CKMB CK-MB (CK-2) 1.1 ng/mL (0-6.6) 10/07/18 00:35 Troponin I 0.036 ng/mL (< 0.028) H 10/07/18 08:34 - Assessment/Plan 1. Gout attack. Somewhat improving. 2. CHF , Diastolic. The EF is reasonable well preserved ( see echo report). On BBlocker and RADHA. Will resume Torsemide at discharge or as appropriate. 3. CAD: stable; On BBlocker, RADHA, ASA, ASA. 4. Atrial fibrillation. Rate well controlled with BBlocker and Eliquis. Schedule for an ablation on 10/17/[address] Eastman. 5. HTN : reasonably well controlled. 6. COPD: stable with RA 7. CKD: Stable 8. Chronic pain: Ex with PT * From Cardiac standpoint, the pt is stable to d/c home. The pt will f/u with Dr Aponte' office 2-4 wks. Review of Systems - Review of Systems Constitutional: reports: no symptoms reported EENTM: reports: no symptoms reported Respiratory: reports: no symptoms reported Cardiac (ROS): reports: no symptoms reported ABD/GI: reports: no symptoms reported : reports: no symptoms reported Musculoskeletal: reports: joint pain
[2018-10-09 13:32] VITALS: BMI 31.4
[2018-10-10] MEDS ORDERED: predniSONE 20 MG TAB PO SCH (08:00)
--- NOTE | 2018-10-11 13:03 | EKG ---
Test Reason : Blood Pressure : / mmHG Vent. Rate : 076 BPM Atrial Rate : 076 BPM P-R Int : 000 ms QRS Dur : 186 ms QT Int : 470 ms P-R-T Axes : 000 -39 097 degrees QTc Int : 528 ms Ventricular-paced rhythm with occasional supraventricular complexes and with occasional Premature kyung tricular complexes Abnormal ECG Confirmed by MOUNA TAPIA ([id number]), editor sound THOR LY ([id number]) on 10/11/2018 1:03:23 PM Referred By: Confirmed By:MOUNA TAPIA
== END 2018-10-09 15:06 | disposition home or self-care (01) | DRG 291 ==
LOC: ERS 23:39 → CCU 10-07 05:50 → 2NO 10-08 15:07
PROVIDERS: ADMIT Internal Medicine; ATTEND Internal Medicine
PROC: B24BZZZ Ultrasonography of Heart with Aorta (ICD-10-PCS; principal; 2018-10-07)
DX: I13.0 Hypertensive heart and chronic kidney disease with heart failure and stage 1 through stage 4 chronic kidney disease, or unspecified chronic kidney disease (principal); I50.33 Acute on chronic diastolic (congestive) heart failure; I48.92 Unspecified atrial flutter; I43 Cardiomyopathy in diseases classified elsewhere; N18.3 Chronic kidney disease, stage 3 (moderate); I95.9 Hypotension, unspecified; K21.9 Gastro-esophageal reflux disease without esophagitis; J44.9 Chronic obstructive pulmonary disease, unspecified; M06.9 Rheumatoid arthritis, unspecified; Z95.0 Presence of cardiac pacemaker; I35.0 Nonrheumatic aortic (valve) stenosis; I48.91 Unspecified atrial fibrillation; Z79.01 Long term (current) use of anticoagulants; Z79.52 Long term (current) use of systemic steroids; Z79.818 Long term (current) use of other agents affecting estrogen receptors and estrogen levels; Z79.811 Long term (current) use of aromatase inhibitors; Z79.899 Other long term (current) drug therapy; Z79.51 Long term (current) use of inhaled steroids; Z88.0 Allergy status to penicillin; Z91.041 Radiographic dye allergy status; M10.9 Gout, unspecified; I25.10 Atherosclerotic heart disease of native coronary artery without angina pectoris; I25.5 Ischemic cardiomyopathy; Z95.1 Presence of aortocoronary bypass graft; E11.9 Type 2 diabetes mellitus without complications; I77.9 Disorder of arteries and arterioles, unspecified; Z79.82 Long term (current) use of aspirin
CPT/HCPCS: 36415; 36416; 36556; 71045; 72170; 80048; 80053; 81003; 82533; 82553; 83605; 83735; 83880; 84443; 84484; 84550; 85025; 87040; 87086; 93005; 93306; 96361; 96365; 96366; 96374; G8978-GP-CL; G8979-GP-CI; J1720; J1940; J8540; P9047

== ENCOUNTER 2018-10-16 14:04 | Observation (INO) | payer MEDICARE ==
[~2018-10-16 14:04] MED LIST: Glycopyrrolate 0.2 MG/ML 5 ML SYRINGE ONE; Lidocaine 1% PF 5 ML VIAL ONE; Ondansetron PF 4 MG/2 ML Vial ONE; PHENYLEPHRINE-NS 100 MCG/ML 10 ML SYRINGE ONE; PROPOFOL 200 MG/20 ML VIAL ONE; ePHEDrine/0.9% NaCl/PF SYRINGE 50 mg/10 ml ONE
[2018-10-16 14:50] LABS: #Eosinphils 0.1 thou/uL (0.0-0.7); #Lymphocytes 2.6 thou/uL (1.20-3.40); #Monocytes 0.7 thou/uL (0.11-0.59); #Neutrophils 8.5 thou/uL (1.40-6.50); %Basophils 0.3 % (0.0-1.0); %Eosinophils 0.8 % (0.0-10.0); %Lymphocytes 21.4 % (21.0-51.0); %Monocytes 5.9 % (0.0-10.0); %Neutrophils 71.6 % (42.0-75.0); Hemoglobin 11.9 g/dL (14.0-18.0); Mean Corpuscular HGB CONC 32.5 g/dL (32.0-36.0); Mean Corpuscular Volume 89.4 fL (78.0-98.0); Mean Platelet Volume 7.7 fL (7.4-10.4); Platelet Count 446 thou/uL (130-400); RBC Distribution Width 14.4 % (11.5-14.5); White Blood Cell (WBC) Count 11.9 thou/uL (4.8-10.8)
[2018-10-16 14:54] LABS: INR-International Normal Ratio 1.6; PTT 26.1 SEC (22.9-36.1)
[2018-10-16] MEDS ORDERED: Heparin 10,000 UNITS/1 ML VIAL ONE (15:13)
[2018-10-16] MEDS ORDERED: Fentanyl 100 MCG/2 ML VIAL ONE (15:43)
[2018-10-16] MEDS ORDERED: Ondansetron HCl/PF 4 MG/2 ML Vial IVP PRN (15:58)
[2018-10-16 18:51] VITALS: BMI 30.4
[2018-10-16] MEDS ORDERED: traMADol HCl 50 MG TAB PO PRN (19:15)
[2018-10-16] MEDS ORDERED: Nitroglycerin 0.4 MG TAB (25 Tab Bottle) SL PRN (19:20)
[2018-10-16] MEDS ORDERED: Hydrocortisone Acetate 25 MG Suppository PR PRN (19:21)
[2018-10-16] MEDS ORDERED: PROVENTIL INHALER 6.7 G (200 INHALATIONS) INH PRN (19:23)
[2018-10-16] MEDS: Apixaban 5 MG TAB PO SCH (21:30)
[2018-10-16] MEDS: Sucralfate 1 GM TAB PO SCH (21:30)
[2018-10-17] MEDS ORDERED: Protamine Sulfate 50 MG/5 ML VIAL ONE (06:03)
[2018-10-17] MEDS ORDERED: Mometasone/Formoterol 120 PUFF INHALER INH SCH (06:30)
[2018-10-17] MEDS ORDERED: predniSONE 20 MG TAB PO SCH (08:00)
[2018-10-17] MEDS ORDERED: Carvedilol 6.25 MG TAB PO SCH (08:00)
[2018-10-17] MEDS ORDERED: Torsemide 20 MG TAB PO SCH (09:00)
[2018-10-17] MEDS ORDERED: Lisinopril 5 MG TAB PO SCH (09:00)
[2018-10-17] MEDS ORDERED: Loratadine 10 MG TAB PO SCH (09:00)
[2018-10-17] MEDS: Apixaban 5 MG TAB PO SCH (09:53)
[2018-10-17] MEDS: Sucralfate 1 GM TAB PO SCH ×2 (09:54→13:34)
[2018-10-17 11:58] VITALS: BP 132/68; TEMP 98.6
--- NOTE | 2018-10-18 05:32 | DIS ---
DATE OF ADMISSION: 10/16/2018 DATE OF DISCHARGE: 10/17/2018 ADMITTING DIAGNOSES: 1. Persistent atrial arrhythmias. 2. Biventricular implantable cardioverter-defibrillator in place. 3. History of cardiomyopathy. 4. Status post elective pulmonary venous isolation procedure on 10/16/[address] Pederson, isolating all four pulmonary veins and posterior wall ablation was also performed. HOSPITAL COURSE: Mr. Rogers was admitted after the elective left atrial ablation as above. He tolerated the procedure well, was restarted on blood thinners and remained stable overnight. PHYSICAL EXAMINATION: VITAL SIGNS: Subsequent day, his vital signs are blood pressure 132/68, heart rate 93, respiratory rate 18, temperature 98.6 degrees Fahrenheit. GENERAL: He is alert and oriented man, in no apparent distress. NECK: Supple. Jugular veins not distended. CHEST: Coarse without crackles. HEART: Sounds are regular rate and rhythm. No murmur or gallop. ABDOMEN: Benign. Bowel sounds positive. EXTREMITIES: Lower extremities without edema, clubbing, or cyanosis. DATABASE: The telemetry strips reveal sinus/paced rhythm. Ventricular pacing is also noted. PLAN: At this point, discharge home. Plan is to continue home medication as before including; 1. . 2. Carvedilol 12.5 twice a day. 3. Lisinopril 5 mg daily. 4. Prednisone 10 mg daily. 5. Torsemide mg daily or double if needed for fluid overload. 6. DuoNeb. 7. Ventolin inhalers. 8. Hydrocortisone suppository daily. 9. Cetrizine. 10. Aspirin. 11. Eliquis 5 mg twice a day. 12. Symbicort. 13. Humira. 14. Tramadol. The patient is advised to take Protonix 40 mg daily and Carafate 1 g four times a day will be requested for the next 2 weeks. He is encouraged to take extra torsemide if necessary for fluid overload, currently appears to be well balanced. Dougherty has been discontinued and he is stable for discharge. Plan 6 weeks followup. Job ID: [id number]
--- NOTE | 2018-10-20 08:20 | OP ---
DATE OF PROCEDURE: 10/16/2018 PROCEDURE PERFORMED: Radiofrequency ablation for atrial fibrillation. PREOPERATIVE DIAGNOSIS: Atrial fibrillation. PROCEDURE DETAILS: The patient came to the EP lab in the postobstructive state. Informed consent was obtained. A time-out was called. The patient was sedated by member of the anesthesia staff. Once the patient was adequately sedated, the right and left femoral regions were prepped and draped in usual sterile fashion. Using a modified Seldinger technique with ultrasound access, access was obtained x2 in the right femoral vein, x1 in the left femoral vein, and x1 in the right internal jugular vein. A 20-pole DuoDeca catheter was advanced from the right internal jugular vein and placed into the coronary sinus with last 10 poles in the coronary sinus for left atrial pacing and recording. The two right-sided sheaths were exchanged for long sheaths for transseptal puncture, and an intracardiac echo catheter was advanced from the left femoral vein and placed in the right atrium for procedural monitoring and imaging. Heparin bolus was given prior to transseptal puncture, and transseptal puncture was performed under direct guidance using a Odeo system. A 10-pole 20-mm circular mapping catheter was advanced into the pulmonary veins, and pulmonary vein recording was obtained. A 3-dimensional geometry of the left atrium was made using the Carto mapping system for electroanatomical mapping. Radiofrequency ablation was delivered around the pulmonary veins to achieve isolation of the pulmonary veins in posterior wall with titration of energy and time near the esophagus while monitoring esophageal temperature. Expensive ablation was required posteriorly, which result in complete isolation of the pulmonary veins. Isoproterenol was given with no demonstration of pulmonary vein triggers. Cardioversion put the patient back into normal sinus rhythm prior to isoproterenol. After this, catheters were moved to the right atrium, and His bundle recording was measured and found to be an HV of approximately 50 milliseconds. The sheaths were removed, and hemostasis was obtained with placement of Vascade closure device system as well as hemostasis for the neck. The patient tolerated the procedure well and was discharged in the EP lab in stable condition. COMPLICATIONS: None acute. ESTIMATED BLOOD LOSS: Less than 30 mL. PROCEDURES PERFORMED: RF ablation for atrial fibrillation with additional ablation with lines for the posterior wall, intracardiac echo, left atrial pacing and recording, transseptal puncture, and 3-D electroanatomical mapping. CONCLUSIONS: Successful ablation for left atrial fibrillation. RECOMMENDATIONS: The patient will be at bedrest. He will follow up with Electrophysiology in 6 weeks. He will continue on anticoagulant therapy indefinitely. POSTOPERATIVE DIAGNOSIS: Atrial fibrillation. Job ID: [id number]
[2018-10-23] MEDS ORDERED: Adalimumab 40 MG/0.8 ML SYRINGE SC SCH (09:00)
== END 2018-10-17 15:39 | disposition home or self-care (01) ==
LOC: CCL 14:04 → 2SW 17:00
PROVIDERS: ADMIT Specialist; ATTEND Specialist
PROC: 02583ZZ Destruction of Conduction Mechanism, Percutaneous Approach (ICD-10-PCS; principal; 2018-10-16)
PROC: 02K83ZZ Map Conduction Mechanism, Percutaneous Approach (ICD-10-PCS; 2018-10-16)
DX: I48.91 Unspecified atrial fibrillation (principal); I50.9 Heart failure, unspecified; I25.5 Ischemic cardiomyopathy; Z79.01 Long term (current) use of anticoagulants; Z79.82 Long term (current) use of aspirin; Z79.899 Other long term (current) drug therapy; Z88.0 Allergy status to penicillin; Z91.041 Radiographic dye allergy status; Z95.810 Presence of automatic (implantable) cardiac defibrillator
CPT/HCPCS: 76942; 85025; 85347 ×2; 85610; 85730; 93005 ×2; 93613; 93623; 93656; 93662; 94640; 94664; C1731; C1759; C1769; G0378; 93010; J1644; J2001; J2405; J2704; J2720; J3010; J7506; J7620

== ENCOUNTER 2018-10-29 10:23 | Outpatient (CLI) | payer MEDICARE ==
--- NOTE | 2018-10-29 13:34 | CT ---
NONCONTRAST CT LUMBAR SPINE: Date: 10-29-18 History: Lumbar radiculopathy. Patient is having back pain radiating down into the right leg. Symptom s have been present for over a month. FINDINGS: There are two nonobstructing calculi seen within the left kidney, each measuring 4-5 mm. Calcificatio n seen in each renal hilum likely related to vascular calcifications. Vascular calcifications are see n in the abdominal aorta and involving the iliac arteries. The infrarenal abdominal aorta is ectatic but measures less than 3 cm. 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 The right common iliac artery measures 2 cm in diameter and left common iliac artery measures appro ximately 2.2 cm in diameter. Multilevel degenerative changes are present. There is mild right convex curvature of the upper lumbar spine. There is narrowing of the intervertebral disc spaces at all levels of the lumbar spine with endplate degenerative changes at all levels as well as vacuum phenomenon within the intervertebral disc relate d to endplate degenerative changes. There is slight retrolisthesis of L2 on L3. Vertebral body heights are within normal limits and no fracture is appreciated. T12-L1: There is a broad based disc osteophyte complex resulting in effacement of the ventral subarac hnoid space. Neural foramina are patent. L1-2: There is loss of intervertebral disc height. There is a broad based disc osteophyte complex pre sent. Right neural foramen is patent. There is mild narrowing of the left neural foramen. There are g as densities seen in the lateral aspect of the left neural foramen which is likely related to gas wit hin a disc fragment or slightly more lateral left foraminal disc protrusion/disc bulge. There is no s ignificant narrowing of the central spinal canal although there is slight mass effect on the left pos terolateral aspect of the thecal sac due to prominent facet hypertrophic changes. L2-3: As noted above, there is slight retrolisthesis of L2 on L3. Prominent endplate degenerative aurea nges are present at this level. There is a broad based disc osteophyte complex with facet hypertrophi c changes, greater on the left. There is moderate narrowing of the central spinal canal as well as na rrowing of the lateral recesses bilaterally, greater on the right. There is mild bilateral neural for aminal narrowing. L3-4: There is a broad based disc osteophyte complex with severe facet hypertrophic changes. There is mild ligamentous thickening. Findings result in severe narrowing of the central spinal canal with na rrowing of the lateral recesses, greater on the right. There is mild to moderate bilateral neural for aminal narrowing, greater on the right. There is suggestion of a right paracentral disc protrusion an d disc osteophyte complex which narrows the right lateral recess. There is moderate right and mild to moderate left sided neural foraminal narrowing. L4-5: There is a broad based disc osteophyte complex. Facet hypertrophic changes are present, greater on the right. There is mild narrowing of the central spinal canal with narrowing of the lateral rece sses bilaterally, greater on the right. There is moderate to severe right and mild to moderate left s ided neural foraminal narrowing. L5-S1: There is a prominent broad based disc osteophyte complex with prominent endplate degenerative changes present. Facet hypertrophic changes are noted. Findings result in severe bilateral neural for aminal narrowing. There is no significant narrowing of the thecal sac at this level. IMPRESSION: 1. Multilevel degenerative changes seen throughout the lumbar spine as described above, including sli ght retrolisthesis of L2 on L3 and mild scoliotic curvature of the lumbar spine. 2. Nonobstructing left renal calculi. 3. 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 POS: ERIC
== END 2018-10-29 10:24 | disposition home or self-care (01) ==
LOC: BICCT 10:23
PROVIDERS: ATTEND Nurse Practitioner Family
DX: M47.27 Other spondylosis with radiculopathy, lumbosacral region (principal); M47.26 Other spondylosis with radiculopathy, lumbar region; M43.16 Spondylolisthesis, lumbar region; M41.9 Scoliosis, unspecified; I72.3 Aneurysm of iliac artery; N20.0 Calculus of kidney
CPT/HCPCS: 72131

== ENCOUNTER 2018-11-07 10:10 | Day surgery (SDC) | payer MEDICARE ==
[2018-11-06 10:48] VITALS: BMI 31.7
[2018-11-07 10:46] LABS: #Eosinphils 0.2 thou/uL (0.0-0.7); #Lymphocytes 2.3 thou/uL (1.20-3.40); #Monocytes 0.9 thou/uL (0.11-0.59); #Neutrophils 5.1 thou/uL (1.40-6.50); %Basophils 0.3 % (0.0-1.0); %Eosinophils 2.4 % (0.0-10.0); %Lymphocytes 27.4 % (21.0-51.0); %Monocytes 10.4 % (0.0-10.0); %Neutrophils 59.5 % (42.0-75.0); Hemoglobin 11.8 g/dL (14.0-18.0); Mean Corpuscular HGB CONC 33.8 g/dL (32.0-36.0); Mean Corpuscular Hemoglobin 29.2 pg (27.0-31.0); Mean Corpuscular Volume 86.2 fL (78.0-98.0); Mean Platelet Volume 7.5 fL (7.4-10.4); Platelet Count 248 thou/uL (130-400); RBC Distribution Width 14.2 % (11.5-14.5); Red Blood Cell (RBC) Count 4.06 mill/uL (4.70-6.10); White Blood Cell (WBC) Count 8.5 thou/uL (4.8-10.8)
[2018-11-07 10:54] LABS: PTT 32.1 SEC (22.9-36.1); Prothrombin Time 22.7 SEC (12.0-14.7)
[2018-11-07 11:31] LABS: Anion Gap 17 mmol/L (10-20); BUN (Urea Nitrogen) 74 mg/dL (8.4-25.7); Calc. Creatinine Clearance 28 mL/min (70-130); Calcium 9.6 mg/dL (7.8-10.44); Carbon Dioxide 29 mmol/L (23-31); Chloride 96 mmol/L (98-107); Estimated GFR-MDRD 26; Glucose 146 mg/dL (83-110); Potassium 3.2 mmol/L (3.5-5.1); Sodium 139 mmol/L (136-145)
[2018-11-07] MEDS ORDERED: PROPOFOL 20 ML ONE (11:35)
--- NOTE | 2018-11-07 19:25 | OP ---
DATE OF PROCEDURE: 11/07/2018 INTERNAL CARDIOVERSION REPORT REFERRING PHYSICIAN: Dr. Rosenda Aponte. REASON FOR PROCEDURE: Mr. Rogers is an 83-year-old man with prior history of CHF and ischemic cardiomyopathy. BiV ICD implantation prior pulmonary venous isolation procedure on 10/16/[address] Pederson. He has kept continued anticoagulation without fail. He is here for a planned cardioversion. DESCRIPTION OF PROCEDURE: The patient received propofol by Anesthesia specialist. After adequate level of sedation achieved, the ICD was interrogated and found to be in adequate order. A single internal 35-joule synchronized shock promptly converted the patient back to sinus rhythm. He tolerated the procedure well. No complications. RESULTS: Successful cardioversion. ICD was reinterrogated postprocedure, and adequate function was seen. Adequate sensing of 3.3 and 9.6 mV noted in the atrial and RV leads respectively. The battery voltage is 6.60 V. Lead parameters are adequate. Atrial antitachycardia pacing therapies are programmed on. Auto measurements seem to show significant decrease in his OptiVol status since mid late October. Also prior to procedure, baseline blood work was performed demonstrating increase of his creatinine to 2.4 from the prior 1.08 level. The BUN has increased from 35 to 74. This could suggest dehydration. We will recommend holding diuretics and following up with primary care physician regarding his renal status. No early convenience. Hence, markedly elevated creatinine. For now, we will also hold sotalol and Eliquis will be reduced to 2.5 mg twice a day. Job ID: [id number]
== END 2018-11-07 12:45 | disposition home or self-care (01) ==
LOC: CCL 10:10
PROVIDERS: ATTEND Internal Medicine Cardiovascular Disease
PROC: 5A2204Z Restoration of Cardiac Rhythm, Single (ICD-10-PCS; principal; 2018-11-07)
DX: I48.91 Unspecified atrial fibrillation (principal); I50.9 Heart failure, unspecified; I25.5 Ischemic cardiomyopathy; Z95.810 Presence of automatic (implantable) cardiac defibrillator; Z98.890 Other specified postprocedural states; Z88.0 Allergy status to penicillin; Z91.041 Radiographic dye allergy status; Z79.899 Other long term (current) drug therapy; Z79.82 Long term (current) use of aspirin; Z79.01 Long term (current) use of anticoagulants
CPT/HCPCS: 36415; 80048; 85025; 85610; 85730; 92960; 93005; 93010; J2704

== ENCOUNTER 2019-04-02 06:26 | Day surgery (SDC) | payer MEDICARE ==
[2019-04-01 13:04] VITALS: BMI 27.9
[2019-04-02] MEDS ORDERED: PROPOFOL 20 ML ONE (07:44)
--- NOTE | 2019-04-02 09:05 | OP ---
CARDIOVERSION: DATE OF PROCEDURE: 04/02/2019. INDICATION FOR PROCEDURE: An 84-year-old gentleman with persistent atrial fibrillation. He has had a history of cardiomyopathy and has a defibrillator which is a AICD device. He was seen in the clerk analyst's office and was noted to be back in atrial fibrillation. He had undergone a previous electrical cardioversion in November of this year. With the atrial fibrillation he does have tachycardia associated with this an d he was advised to undergo a repeat electrical cardioversion through the device. PROCEDURE IN DETAIL: He was taken to the recovery area where he underwent short-acting Propofol and then using 1 attempt a t 35 joules through the AICD, he had a successful cardioversion of this atrial fibrillation back to s inus rhythm with atrial pacing and ventricular pacing. There were no difficulties or complications e ncountered during the procedure. The patient tolerated the procedure well. IMPRESSION: Atrial fibrillation which underwent successful cardioversion using the automatic implantable cardiove rter/defibrillator device without any complications.
--- NOTE | 2019-04-02 13:10 | DIS ---
DATE OF ADMISSION: 04/02/2019 DATE OF DISCHARGE: 04/02/2019 HOSPITAL COURSE: The patient was seen in the outpatient facility. He is an 84-year-old gentleman to undergo elective cardioversion of his atrial fibrillation back to sinus rhythm. He has had a history of a cardiomyopathy. He has undergone a BiV AICD implant. He has had history of persistent atrial fibrillation, in which he underwent cardioversion in November 2017, and he had another one in 2018. He then was seen and also had a PVAI with Dr. Pederson in October 2018. He was seen in the office of the director clinical research on March 19, 2019, was noted to be back in atrial fibrillation again. Medication changes were discussed with the director clinical research. At this time, he opted to undergo a repeat trial of electrocardioversion via the device and he was brought to the recovery area, where he underwent short-acting propofol and using one attempt internally from the AICD. One shock was delivered at 35 joules and he was successfully converted back to sinus rhythm. He was noted to be in atrial pacing and ventricular pacing. There were no complications or difficulties encountered. If he remains stable, he will be discharged to home. OTHER DIAGNOSES: His other diagnoses include; 1. Ischemic cardiomyopathy. 2. Coronary artery disease, status post bypass grafting, status post automatic implantable cardioverter-defibrillator implant, which is a BiV device, persistent atrial fibrillation. He has had pulmonary vein antrum isolation with Dr. Pederson in October 2018. 3. He has history of rheumatoid arthritis. 4. History of gastrointestinal bleeding, on Xarelto, but has been tolerating Eliquis. 5. Atrial arrhythmias. DISCHARGE DIAGNOSES: 1. Ischemic cardiomyopathy. 2. Coronary artery disease, status post bypass grafting, status post automatic implantable cardioverter-defibrillator implant, which is a BiV device, persistent atrial fibrillation. He has had pulmonary vein antrum isolation with Dr. Pederson in October 2018. 3. He has history of rheumatoid arthritis. 4. History of gastrointestinal bleeding, on Xarelto, but has been tolerating Eliquis. 5. Atrial arrhythmias. PROCEDURE IN HOSPITAL: Included electrocardioversion of atrial fibrillation back to sinus rhythm using an internal electrocardioversion from the AICD. DISCHARGE MEDICATIONS: Include; 1. Aspirin 81 mg a day. 2. Coreg 12.5 mg b.i.d. 3. Eliquis 5 mg b.i.d. 4. Lisinopril 5 mg a day. 5. Tramadol p.r.n. as needed. 6. Torsemide 20 mg a day. 7. Zyrtec daily. 8. Metolazone 2.5 mg on Mondays and . 9. Potassium chloride. 10. Vitamin D. 11. Xanax. 12. Sertraline. 13. Humira. 14. Ivana. DISCHARGE INSTRUCTIONS: He will follow with me in the next 1 to 2 months in the office. He will continue his routine follow ups with Dr. Eastman as per their schedule. If he remains stable, he will be discharged to home. I will see him back in the office as noted above. Job ID: [id number]
[2019-04-02] MEDS ORDERED: PROPOFOL 200 MG/20 ML VIAL ONE (15:23)
== END 2019-04-02 10:22 | disposition home or self-care (01) ==
LOC: CCL 06:26
PROVIDERS: ATTEND Internal Medicine Cardiovascular Disease
PROC: 5A2204Z Restoration of Cardiac Rhythm, Single (ICD-10-PCS; principal; 2019-04-02)
DX: I48.1 Persistent atrial fibrillation (principal); I25.5 Ischemic cardiomyopathy; I25.10 Atherosclerotic heart disease of native coronary artery without angina pectoris; I50.20 Unspecified systolic (congestive) heart failure; M06.9 Rheumatoid arthritis, unspecified; Z79.01 Long term (current) use of anticoagulants; Z79.82 Long term (current) use of aspirin; Z79.899 Other long term (current) drug therapy; Z88.0 Allergy status to penicillin; Z95.1 Presence of aortocoronary bypass graft
CPT/HCPCS: 92960; 93005; 93010; J2704

== ENCOUNTER 2019-04-23 07:04 | Day surgery (SDC) | payer MEDICARE ==
[2019-04-22 15:03] VITALS: BMI 28.6
--- NOTE | 2019-04-23 11:16 | OP ---
DATE OF PROCEDURE: 04/23/2019 PROCEDURE PERFORMED: Esophagogastroduodenoscopy. PREPROCEDURE DIAGNOSES: 1. Recent episode of melenic stool 2 weeks ago with corresponding drop in hemoglobin from baseline of 11.8 back in November 2018 to 9.7 on 05/09/2019. When he was seen in the office by Dr. Reynoso last week, he was no longer having black stools. He was started on Dexilant empirically with a prior history of ulcers in 2013 in [place]. At that time, he had gastric and duodenal ulcers per his family. He also had a colonoscopy reported then, which was normal. He is undergoing upper endoscopy to evaluate for possible recurrent ulcer disease. He was started on Dexilant last week. 2. Hemoglobin stable at 9.7 on 04/15/2019, platelets of 400. BUN and creatinine of 66 and 1.54. Liver function tests normal. Lipase 84. Amylase 78. POSTPROCEDURE DIAGNOSES: 1. Normal esophagus. 2. Normal duodenum. 3. Mild gastritis in the antrum with small white based erosions, seems to be healing. No active bleeding identified. RECOMMENDATIONS: 1. Resume anticoagulation with Eliquis. 2. Continue PPI. We will give him a prescription for Protonix 40 mg daily. 3. We will follow up in the office in 1 week with repeat hemoglobin. If there are any further signs of bleeding, we would proceed with colonoscopy. However, no active bleeding at this time, age, comorbidities, congestive heart failure, family history of coronary artery disease, atrial fibrillation, CHF with pacemaker defibrillator. We will hold off on colonoscopy at this time. ANESTHESIA: TIVA. PROCEDURE IN DETAIL: The patient was informed of the risks, benefits, and possible complications of endoscopy including perforation, bleeding, reaction to medication, aspiration, and informed consent was obtained. The patient was brought to the endoscopy suite, where he was sedated in gradual fashion. Once he was comfortable, a bite block was placed inside the orifice. The endoscope was advanced through the esophagus, stomach, and the second and third portions of the duodenum and slowly removed. The esophagus was normal. The stomach was entered and found to be normal proximal in the antrum region just superior to the pyloric channel. There was small erosion white based with what appeared to be healing mucosa in this area. No active bleeding was seen. This may have been a site of bleeding, especially with the Eliquis and the duodenum was normal at third portion. There were no lesions seen to intervene with. Retroflexed views in the stomach were normal. The scope was removed. The patient tolerated the procedure well with no complications. Job ID: [id number]
== END 2019-04-23 10:57 | disposition home or self-care (01) ==
LOC: SDC 07:04
PROVIDERS: ATTEND Internal Medicine Gastroenterology
PROC: 0DJ08ZZ Inspection of Upper Intestinal Tract, Via Natural or Artificial Opening Endoscopic (ICD-10-PCS; principal; 2019-04-23)
DX: K29.60 Other gastritis without bleeding (principal); M19.90 Unspecified osteoarthritis, unspecified site; J45.909 Unspecified asthma, uncomplicated; I11.0 Hypertensive heart disease with heart failure; I50.9 Heart failure, unspecified; I25.10 Atherosclerotic heart disease of native coronary artery without angina pectoris; E78.5 Hyperlipidemia, unspecified; E11.9 Type 2 diabetes mellitus without complications; I25.2 Old myocardial infarction; Z95.1 Presence of aortocoronary bypass graft; Z90.49 Acquired absence of other specified parts of digestive tract; Z87.891 Personal history of nicotine dependence; Z88.0 Allergy status to penicillin; Z91.041 Radiographic dye allergy status; Z88.8 Allergy status to other drugs, medicaments and biological substances; Z79.82 Long term (current) use of aspirin; Z79.01 Long term (current) use of anticoagulants; Z79.899 Other long term (current) drug therapy

== ENCOUNTER 2019-05-06 16:01 | Inpatient (IN) | payer MEDICARE ==
--- NOTE | 2019-05-06 17:29 | RAD ---
EXAM: Single view of the chest HISTORY: Dehydration and decreased oral intake; confusion COMPARISON: 10/07/2018 FINDINGS: Single view of the chest shows an enlarged but stable cardiomediastinal silhouette. The pa cemaker is unchanged in position. The patient is status post sternotomy. There is no evidence of consolidation, mass, or pleural effusion. The bones are unremarkable. IMPRESSION: Cardiomegaly without evidence of acute cardiopulmonary disease
[2019-05-06 17:50] LABS: #Eosinphils 0.1 thou/uL (0.0-0.7); #Lymphocytes 1.5 thou/uL (1.20-3.40); #Monocytes 1.1 thou/uL (0.11-0.59); #Neutrophils 9.2 thou/uL (1.40-6.50); %Basophils 0.3 % (0.0-1.0); %Eosinophils 0.7 % (0.0-10.0); %Lymphocytes 12.8 % (21.0-51.0); %Monocytes 9.5 % (0.0-10.0); %Neutrophils 76.8 % (42.0-75.0); Hemoglobin 9.7 g/dL (14.0-18.0); Mean Corpuscular HGB CONC 31.6 g/dL (32.0-36.0); Mean Corpuscular Volume 88.7 fL (78.0-98.0); Mean Platelet Volume 7.2 fL (7.4-10.4); Platelet Count 357 thou/uL (130-400); RBC Distribution Width 14.7 % (11.5-14.5); Red Blood Cell (RBC) Count 3.45 mill/uL (4.70-6.10); White Blood Cell (WBC) Count 11.9 thou/uL (4.8-10.8)
[2019-05-06 18:09] LABS: ALT (SGPT) 28 U/L (8-55); AST (SGOT) 17 U/L (5-34); Albumin 3.8 g/dL (3.4-4.8); Alkaline Phosphatase 84 U/L (40-150); Anion Gap 18 mmol/L (10-20); BUN (Urea Nitrogen) 51 mg/dL (8.4-25.7); Bilirubin, Total 0.6 mg/dL (0.2-1.2); Calc. Creatinine Clearance 0 mL/min (70-130); Calcium 10.7 mg/dL (7.8-10.44); Carbon Dioxide 32 mmol/L (23-31); Chloride 95 mmol/L (98-107); Estimated GFR-MDRD 35; Globulin 4.3 g/dL (2.4-3.5); Glucose 162 mg/dL (83-110); Potassium 4.7 mmol/L (3.5-5.1); Protein, Total 8.1 g/dL (5.8-8.1); Sodium 140 mmol/L (136-145)
[2019-05-06 18:57] LABS: Bilirubin Negative (Negative); Blood, Urine Negative (Negative); Clarity Clear (Clear); Glucose, Urine (Dipstick) Normal (Negative); Leukocyte Negative Leu/uL (Negative); Nitrite Negative (Negative); Protein, Urine (Dipstick) Negative (Neg-Trace); RBC/HPF None Seen HPF (0-3); Squamous Epithelial 0-3 HPF (0-3); Urobilinogen Normal mg/dL (Less than 2); WBC/HPF 0-3 HPF (0-3)
[2019-05-06 19:00] LABS: Bacteria/HPF None Seen HPF (None Seen)
--- NOTE | 2019-05-06 19:28 | CT ---
EXAM: CT brain without contrast HISTORY: Confusion COMPARISON: 11/09/2014 TECHNIQUE: Multiple contiguous axial images were obtained and a CT of the brain without contrast. FINDINGS: There are scattered hypodensities in the subcortical and periventricular white matter consi stent with small vessel ischemic disease. There is no evidence of hydrocephalus, intracranial hemorrhage, or extra-axial fluid collection. The calvarium and overlying soft tissues are unremarkable. The visualized paranasal sinuses and masto id air cells are well aerated. IMPRESSION: No evidence of acute intracranial abnormality
[2019-05-06] MEDS ORDERED: Fentanyl 100 MCG/2 ML VIAL ONE (20:57)
[2019-05-06] MEDS ORDERED: Ondansetron PF 4 MG/2 ML Vial ONE (20:57)
--- NOTE | 2019-05-06 22:11 | CT ---
CT Abdomen Pelvis WO Con: 05/06/2019 8:25 PM HISTORY: Generalized abdominal pain with nausea and vomiting COMPARISON: 08/27/2014 TECHNIQUE: Multiple contiguous axial images were obtained and a CT of the abdomen and pelvis without IV contrast . Oral contrast was administered. Coronal reformats were performed. FINDINGS: This examination is limited for the evaluation of solid organs and vascular structures due to the lac k of intravenous contrast. Lower Chest: within normal limits. Abdomen: Liver: Air in the biliary tree is likely from sphincterotomy at the ampulla of Vater. Bile Ducts: Normal caliber. Gallbladder: Absent Pancreas: within normal limits. Spleen: within normal limits. Adrenals: within normal limits. Kidneys: within normal limits. Calcifications in the hilar regions are likely vascular. Pelvis: Reproductive Organs: No pelvic masses. Ureters: within normal limits. Bladder: within normal limits. Bowel: Normal caliber. Mesenteric Lymph Nodes: No enlarged mesenteric lymph nodes. Peritoneum: No ascites or free air, no fluid collection. Vessels: Atherosclerotic calcifications in the aorta Retroperitoneum: within normal limits. Abdominal Wall: within normal limits. Bones: Degenerative changes in the spine. IMPRESSION: No evidence of acute intraabdominal or pelvic abnormality.
[2019-05-06] MEDS ORDERED: Norepinephrine 8 MG in Dextrose 5% in Water 242 ML IVPB PRN (23:11)
[2019-05-06] MEDS ORDERED: Midazolam HCl 2 mg/2 ml Vial ONE (23:41)
[2019-05-07] MEDS ORDERED: Acetaminophen 325 MG TAB PO PRN (00:22)
[2019-05-07] MEDS ORDERED: Ondansetron ODT 4 MG TAB PO PRN (00:22)
[2019-05-07] MEDS ORDERED: Acetaminophen 650 MG Suppository PR PRN (00:22)
[2019-05-07] MEDS ORDERED: Meropenem 1 GM in Sodium Chloride 0.9% 100 ML IVPB SCH (01:00)
[2019-05-07] MEDS ORDERED: Sodium Chloride 0.9% 500 ML IV SCH (03:00)
[2019-05-07] MEDS: Sodium Chloride 0.9% 1,000 ML IV SCH ×2 (03:01→13:00)
[2019-05-07] MEDS ORDERED: PROVENTIL INHALER 6.7 G (200 INHALATIONS) INH PRN (03:13)
[2019-05-07] MEDS: Morphine 4 MG/ML VIAL SLOW IVP PRN (03:25)
--- NOTE | 2019-05-07 04:30 | HP ---
PRIMARY CARE PHYSICIAN: Merlin Bang MD CODE STATUS: Full code. TIME OF EVALUATION: 12:20 p.m. CHIEF COMPLAINT: Confusion. HISTORY OF PRESENT ILLNESS: This is an 84-year-old male patient with past medical history of GERD, asthma, gout, RA, coronary artery disease, status post CABG x4 vessels, and hypertension. The patient came to the hospital after having change in mental status, as per daughter, changes were severe with no clear triggers, no alleviating factors, was disoriented and getting confused with the pills at home, the symptoms started during the morning and had been present during the day with no significant improvement, associated with some abdominal distention. The patient also has had decrease in intake in the past few days. REVIEW OF SYSTEMS: CONSTITUTIONAL: No fever, chills, or generalized weakness. RESPIRATORY: No cough, sputum production, or shortness of breath. CARDIOVASCULAR: No chest pain, or palpitation. GASTROINTESTINAL: No nausea, vomiting, diarrhea, or abdominal pain. 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 GENITOURINARY: No burning on urination. EXTREMITIES: No leg swelling. All other systems were reviewed and negative except for the findings mentioned above. PAST MEDICAL HISTORY: As mentioned in HPI. SURGICAL HISTORY: AICD placed, 09/06/2017, appendectomy, cholecystectomy, laparoscopic surgery, CABG x4 vessels. PSYCHIATRIC HISTORY: No previous psychiatric history. SOCIAL HISTORY: No alcohol. The patient denies any drug use. No smoking history. KNOWN ALLERGIES: Iodine, penicillin. REPORTED MEDICATIONS: 1. Eliquis. 2. Carvedilol. 3. Humira. 4. Aspirin. 5. Torsemide. 6. Lisinopril. PHYSICAL EXAMINATION: VITAL SIGNS: On presentation, blood pressure 96/63, occasionally the patient has been systolically in the 70s, heart rate 91, respiratory rate was 17, temperature was 97.7. Pain was 7/10, oxygen saturation 91% on room air. GENERAL APPEARANCE: The patient is alert, oriented, not in acute distress. HEENT: Eyes, normal conjunctivae. Moist oral mucosa. Anicteric. No JVD. RESPIRATORY: The patient has bilateral air entry that has decreased. The patient has bilateral rales. No wheezing. Symmetric expansion. CARDIOVASCULAR: Normal rate. Regular rhythm. No murmurs. No gallop. No edema. ABDOMEN: Soft. Normal bowel sounds. MUSCULOSKELETAL: Baseline range of motion and strength. SKIN: Warm, intact. No pallor. No rash. No redness. Capillary refill seems to be intact. NEUROLOGIC: No evidence of any new focal weakness. The patient has chronic weakness in four limbs due to cervical spine problems. No new changes. PSYCHIATRIC: The patient is confused, unable to fully explore. IMAGING STUDIES: EKG was reviewed. The patient has complete RBBB, normal sinus rhythm with a rate of 92. Chest x-ray was reviewed. The patient has cardiomegaly with no evidence of acute cardiopulmonary disease. The brain CT was done, the patient has no evidence of acute intracranial abnormalities. Abdomen and pelvis CT was done, the patient has a no evidence of acute intraabdominal or pelvic abnormalities. LABORATORY DATA: Reviewed. The patient has white count 11.9, hemoglobin 9.7, MCV 88.7, platelet count 257. Sodium 140, potassium 4.7, chloride 95, carbon dioxide 32, anion gap of 18, BUN 51 with a creatinine of 1.85, the previous creatinine past month was 1.53, in November 2.4. GFR 35, glucose 162, lactic acid 1.2, calcium 10.7, total bilirubin 0.6. LFTs were negative. Troponin was negative. Beta-natriuretic peptide 547, lipase 24. Urine was done, was negative. ASSESSMENT AND PLAN: The patient will be placed in the hospital with following medical problems: 1. Acute encephalopathy, unclear etiology, seems to be fluctuating, during my examination, then the patient got better, the patient had been on Levophed due to low blood pressure. We will treat him empirically for hypotension and he has received so far 1 L bolus. We will continue to give fluids. Also, there is a report that the patient has underlying congestive heart failure, we will continue to monitor closely, and then also we will continue to monitor breathing and saturation. We will adjust as needed. 2. Acute on chronic kidney injury, there is an increase in creatinine from previous admission, the patient receiving some hydration, could be related to hypotension. We will monitor kidney function. If not improving, might need Nephrology for evaluation of systems with the patient. 3. Chronic normocytic anemia. This could be related to underlying chronic kidney disease. We will monitor hemoglobin and transfuse as needed. 4. Hyperglycemia. No history of diabetes reported. Monitor. No need for any acute intervention at this point. 5. Deep venous thrombosis prophylaxis. The patient is on chronic anticoagulation. Since there is a drop in hemoglobin and troponin's, we will monitor hemoglobin and see if the patient has any bleeding causing the hypotension. Then, we will restart anticoagulation. Job ID: [id number]
[2019-05-07 05:46] LABS: #Eosinphils 0.1 thou/uL (0.0-0.7); #Lymphocytes 1.3 thou/uL (1.20-3.40); #Neutrophils 7.1 thou/uL (1.40-6.50); %Basophils 0.3 % (0.0-1.0); %Eosinophils 0.8 % (0.0-10.0); %Monocytes 10.5 % (0.0-10.0); %Neutrophils 74.4 % (42.0-75.0); Hemoglobin 8.4 g/dL (14.0-18.0); Mean Corpuscular HGB CONC 31.8 g/dL (32.0-36.0); Mean Corpuscular Hemoglobin 28.4 pg (27.0-31.0); Mean Corpuscular Volume 89.3 fL (78.0-98.0); Mean Platelet Volume 7.4 fL (7.4-10.4); Platelet Count 328 thou/uL (130-400); RBC Distribution Width 14.7 % (11.5-14.5); Red Blood Cell (RBC) Count 2.97 mill/uL (4.70-6.10); White Blood Cell (WBC) Count 9.6 thou/uL (4.8-10.8)
[2019-05-07 06:05] LABS: Anion Gap 14 mmol/L (10-20); BUN (Urea Nitrogen) 46 mg/dL (8.4-25.7); Calc. Creatinine Clearance 36 mL/min (70-130); Calcium 9.4 mg/dL (7.8-10.44); Carbon Dioxide 30 mmol/L (23-31); Chloride 98 mmol/L (98-107); Estimated GFR-MDRD 40; Glucose 165 mg/dL (83-110); Potassium 3.8 mmol/L (3.5-5.1); Sodium 138 mmol/L (136-145)
[2019-05-07] MEDS ORDERED: Cepastat Lozenges 1 LOZ PO PRN (08:12)
[2019-05-07] MEDS ORDERED: Sodium Chloride 0.65% Nasal 44 ML BOT EA NARE PRN (08:12)
[2019-05-07] MEDS ORDERED: Senokot S 8.6-50 MG TAB PO PRN (08:12)
[2019-05-07] MEDS ORDERED: Diabetic Tussin 200 MG/10 ML UDCUP PO PRN (08:12)
[2019-05-07] MEDS ORDERED: Bisacodyl 5 MG TAB PO PRN (08:12)
[2019-05-07] MEDS ORDERED: Loratadine 10 MG TAB PO PRN (08:12)
[2019-05-07] MEDS ORDERED: Artificial Tears 18 DROP/0.9 ML EA EYE PRN (08:12)
[2019-05-07] MEDS ORDERED: Loperamide HCl 2 MG CAP PO PRN (08:12)
[2019-05-07] MEDS: Aspirin Chewable 81 MG TAB PO SCH (08:44)
--- NOTE | 2019-05-07 08:59 | CON ---
DATE OF CONSULTATION: HISTORY OF PRESENT ILLNESS: Donny Rogers is an 84-year-old gentleman, who was apparently brought to the hospital with confusion and disorientation. Poor intake. He underwent endoscopy several weeks ago for what sounds like GI bleed. This morning, he is in the ICU. He is on a Levophed drip, low-flow O2. He said he is having some difficulty breathing, not having any abdominal pain. He knows where he is right now. PAST MEDICAL HISTORY: Longstanding history of COPD, reflux, arthritis, coronary artery disease, peptic ulcer disease, and hypertension. PAST SURGICAL HISTORY: Previous surgeries otherwise included bypass, AICD, appendix, and cholecystectomy. MEDICATIONS: His home medicine includes; 1. Demadex 20. 2. Symbicort 160. 3. Zoloft 25. 4. Potassium. 5. Nitroglycerin. 6. Zestril 5. 7. DuoNeb. 8. Ivana. 9. Coreg 12.5. 10. Aspirin. 11. Eliquis 2.5. 12. Humira 40. ALLERGIES: MULTIPLE; IODINE, PENICILLIN, AND STATINS. REVIEW OF SYSTEMS: Difficult to obtain, but otherwise 10 point seems to be otherwise unremarkable. PHYSICAL EXAMINATION: VITAL SIGNS: His saturations are 93 to 94 on 2 L, respirations 20, blood pressure 117/82, and pulse 85. CHEST: Decreased breath sounds. No wheezing. CARDIAC: Normal S1 and S2. No gallops. ABDOMEN: No masses. LABORATORY DATA: White count 9000, H and H of 8 and 26, and platelet count 328. Creatinine 1.6. BNP is 547. IMAGING DATA: His chest x-ray was normal. CT brain was normal. CT abdomen and pelvis showed no intraabdominal process. ASSESSMENT: 1. Metabolic encephalopathy. 2. Renal failure. 3. Chronic obstructive pulmonary disease. 4. Congestive heart failure. 5. Automatic implantable cardioverter-defibrillator. 6. Recent apparently fall. PLAN: Pulmonary-decker, he needs to be on his schedule neb treatments, Symbicort. Try and wean off his Levophed. Slow hydration. Cardiology consult. Consultation note, 70 minutes, 50% direct patient care. Job ID: [id number]
[2019-05-07] MEDS ORDERED: Ergocalciferol 1.25 MG(50,000 UNITS) CAP PO SCH (09:00)
[2019-05-07] MEDS: methylPREDNISolone Sod Succ 40 MG VIAL IVP SCH (09:20)
[2019-05-07] MEDS: Torsemide 20 MG TAB PO SCH (10:26)
--- NOTE | 2019-05-07 11:22 | PDOC.PN ---
- Subjective Encounter Start Date: 05/07/19 Encounter Start Time: 09:40 -: old records requested/rev Patient seen and examined. No new complaints. No overnight events - Objective Resuscitation Status - Order Detail: 05/07/19 00:22 Resuscitation Status Routine Resuscitation Status: FULL: Full Resuscitation MAR Reviewed: Yes Vital Signs & Weight: Vital Signs (12 hours) Temp Pulse Resp BP Pulse Ox 05/07/19 09:13 84 25 H 95 05/07/19 08:00 97.9 F 05/07/19 07:49 97 05/07/19 04:00 98.6 F 05/07/19 01:26 98.6 F 88 23 H 98/63 93 L 05/07/19 01:15 93 L 05/07/19 01:10 98.6 F Weight Weight 166 lb 7.184 oz Most Recent Monitor Data Heart Rate from ECG 80 NIBP 100/64 NIBP BP-Mean 76 Respiration from ECG 19 SpO2 92 I&O: 05/06/19 05/07/19 05/08/19 06:59 06:59 06:59 Intake Total 880 Output Total 10 175 Balance 870 -175 Result Diagrams: 05/07/19 05:00 05/07/19 05:00 Radiology Reviewed by me: Yes EKG Reviewed by me: Yes Phys Exam - Physical Examination Constitutional: NAD HEENT: PERRLA, moist MMs, sclera anicteric Neck: no JVD, supple Respiratory: no wheezing, no rales, no rhonchi Cardiovascular: no rub, irregular SM+ at aortic area Gastrointestinal: soft, non-tender, no distention, positive bowel sounds Musculoskeletal: no edema, pulses present Neurological: non-focal, normal sensation, moves all 4 limbs Lymphatic: no nodes Psychiatric: normal affect, A&O x 3 Skin: no rash, normal turgor Dx/Plan (1) Acute worsening of stage 3 chronic kidney disease Code(s): N18.3 - CHRONIC KIDNEY DISEASE, STAGE 3 (MODERATE) Status: Acute (2) Hypotension Status: Acute (3) Anemia, normocytic normochromic Code(s): D64.9 - ANEMIA, UNSPECIFIED Status: Chronic (4) Anxiety and depression Code(s): F41.9 - ANXIETY DISORDER, UNSPECIFIED; F32.9 - MAJOR DEPRESSIVE DISORDER, SINGLE EPISODE, UNSPECIFIED Status: Chronic (5) CAD (coronary artery disease) Code(s): I25.10 - ATHSCL HEART DISEASE OF [place] CORONARY ARTERY W/O ANG PCTRS Status: Chronic (6) COPD (chronic obstructive pulmonary disease) Status: Chronic (7) Chronic anticoagulation Code(s): Z79.01 - CORRECTION (CURRENT) USE OF 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 Status: Chronic (8) Chronic atrial fibrillation Code(s): I48.2 - CHRONIC ATRIAL FIBRILLATION Status: Chronic (9) Chronic stage c diastolic heart failure Code(s): I50.32 - CHRONIC DIASTOLIC (CONGESTIVE) HEART FAILURE Status: Chronic (10) HTN (hypertension) Code(s): I10 - ESSENTIAL (PRIMARY) HYPERTENSION Status: Chronic Qualifiers: (11) Moderate aortic stenosis by prior echocardiogram Code(s): I35.0 - NONRHEUMATIC AORTIC (VALVE) STENOSIS Status: Chronic (12) Rheumatoid arthritis Code(s): M06.9 - RHEUMATOID ARTHRITIS, UNSPECIFIED Status: Chronic - Plan cont current plan of care * suspecting hypotension from over meds * dose not have any clinical evidence of infection * continue low dose solumedrol * continue gentle IVF and watch for fluid overload * will wean off levophed drip * will consult cardiology * medication reviewed as below * symptomatic treatment. Review of Systems - Review of Systems ENT: negative: Ear Pain, Ear Discharge, Nose Pain, Nose Discharge, Nose Congestion, Mouth Pain, Mouth Swelling, Throat Pain, Throat Swelling, Other Respiratory: negative: Cough, Dry, Shortness of Breath, Hemoptysis, SOB with Excertion, Pleuritic Pain, Sputum, Wheezing Cardiovascular: negative: chest pain, palpitations, orthopnea, paroxysmal nocturnal dyspnea, edema, light headedness, other Gastrointestinal: negative: Nausea, Vomiting, Abdominal Pain, Diarrhea, Constipation, Melena, Hematochezia, Other Genitourinary: negative: Dysuria, Frequency, Incontinence, Hematuria, Retention , Other Musculoskeletal: negative: Neck Pain, Shoulder Pain, Arm Pain, Back Pain, Hand Pain, Leg Pain, Foot Pain, Other Skin: negative: Rash, Lesions, Carlos, Bruising, Other - Medications/Allergies Allergies/Adverse Reactions: Allergies Allergy/AdvReac Type Severity Reaction Status Date / Time Iodinated Contrast- Oral and Allergy Verified 04/22/19 14:50 IV Dye [Iodinated Contrast Media - IV Dye] iodine Allergy Verified 04/22/19 14:50 Penicillins Allergy Verified 04/22/19 14:50 [id number]-[id number]-Tvy Reductase Allergy Verified 04/22/19 14:50 Inhibitor Medications: Current Medications Acetaminophen (Tylenol) 650 mg PO Q4H PRN PRN Reason: Headache/Fever/Mild Pain (1-3) Acetaminophen (Tylenol) 650 mg [place] Q4H PRN PRN Reason: Headache/Fever/Mild Pain (1-3) Albuterol Sulfate (Proventil Hfa) 1 puff INH Q4H PRN PRN Reason: SOB &/or Wheezing Albuterol/Ipratropium (Duoneb) 3 ml NEB TIDPRN PRN PRN Reason: Wheezing Albuterol/Ipratropium (Duoneb) 3 ml NEB [id number] [facility] Last Admin: 05/07/19 09:13 Dose: 3 ml Artificial Tears (Tears Naturale) 2 drop EA EYE PRN PRN PRN Reason: Dry Eyes Aspirin (Aspirin Chewable) 81 mg PO QAM-WM [facility] Last Admin: 05/07/19 08:44 Dose: 81 mg Bisacodyl (Dulcolax) 10 mg PO DAILYPRN PRN PRN Reason: Constipation Ergocalciferol (Drisdol) 1.25 mg PO Q7D [facility] Last Admin: 05/07/19 08:44 Dose: 1.25 mg Guaifenesin (Robitussin Sf) 200 mg PO Q4H PRN PRN Reason: Cough Norepinephrine Bitartrate 8 mg (/ Dextrose/Water) 250 mls @ 0 mls/hr IVPB INF PRN; Protocol PRN Reason: TO MAINTAIN MAP > 65 Sodium Chloride (Normal Saline 0.9%) 1,000 mls @ 75 mls/hr IV .[id number] [facility] Last Admin: 05/07/19 03:01 Dose: 1,000 mls Loperamide HCl (Imodium) 2 mg PO PRN PRN PRN Reason: Diarrhea/Loose Stools Loratadine (Claritin) 10 mg PO DAILYPRN PRN PRN Reason: Sinus Symptoms Methylprednisolone Sodium Succinate (Solu-Medrol) 40 mg IVP DAILY [facility] Last Admin: 05/07/19 09:20 Dose: 40 mg Mometasone Furoate/Formoterol Fumar (Dulera 200 Mcg/5 Mcg Inhaler) 2 puff INH BID-RT [facility] Morphine Sulfate (Morphine) 2 mg SLOW IVP Q4H PRN PRN Reason: Severe Pain (7-10) Last Admin: 05/07/19 03:25 Dose: 2 mg Ondansetron HCl (Zofran Odt) 4 mg PO Q6H PRN PRN Reason: Nausea/Vomiting Ondansetron HCl (Zofran) 4 mg IVP Q6H PRN PRN Reason: Nausea/Vomiting Senna/Docusate Sodium (Senokot S) 2 tab PO BIDPRN PRN PRN Reason: Constipation Sertraline HCl (Zoloft) 25 mg PO DAILY [facility] Last Admin: 05/07/19 08:44 Dose: 25 mg Sodium Chloride (Flush - Normal Saline) 10 ml IVF PRN PRN PRN Reason: Saline Flush Sodium Chloride ([place] Nas[place] 0.65%) 0 ml EA NARE QIDPRN PRN PRN Reason: Nasal Congestion Throat Lozenges (Cepastat Lozenges) 1 marianne PO Q2H PRN PRN Reason: Sore Throat Torsemide (Demadex) 20 mg PO QAM [facility] Last Admin: 05/07/19 10:26 Dose: 20 mg
[2019-05-07 12:21] LABS: Hemoglobin 8.7 g/dL (14.0-18.0)
--- NOTE | 2019-05-07 16:54 | CON ---
DATE OF CONSULTATION: 05/07/2019 INDICATION FOR CONSULTATION: An 84-year-old gentleman, who was admitted with confusion and dehydration. At this time, he is better. He has been given IV fluids. He does have history of cardiomyopathy and chronic atrial fibrillation. He has had an ablation of the atrial fibrillation in the past. He has also had electrocardioversion of atrial fibrillation and flutter. He has chronic pain. He has been complaining of some pain in his neck, in his back, and has been getting injections via pain management physicians. At this time, his family notes that he had just been eating less, drinking less, and became more confused and was brought to the hospital due to the confusion. His cardiac status otherwise appears to be relatively stable. He does have a history of diastolic dysfunction. The BNP is elevated at 547. He has been also complaining of some shortness of breath, but the family says this has actually improved since he has been given some IV fluids. It appears that he is in atrial fibrillation again. He is pacing. He does have a defibrillator. His vital signs are stable at this time. Blood pressure is 117/ 68. His heart rate is in the 80s with atrial fibrillation and occasional ventricular pacing. He appears to be having ventricular pacing majority of the time, but not all the time. He denied any cardiac symptoms otherwise, he has no chest pain. He says he has some soreness in the chest area, as well as in arms, and radiates to the back and this is why he has been having injections. Otherwise, he appears to be relatively stable. PAST MEDICAL HISTORY: Significant for ischemic cardiomyopathy; coronary artery disease, status post bypass grafting, status post AICD implant. He has had a biventricular device. He has persistent chronic atrial fibrillation. He has had atrial fibrillation ablation with pulmonary vein isolation by Dr. Pederson. He has rheumatoid arthritis. He has history of GI bleeding in the past. He recently had an endoscopy performed. There was no overt bleed, but he did have what appeared to be some mild erosions. He has a history of bypass surgery. He has history of rheumatoid arthritis. MEDICATIONS: Prior to admission included; aspirin 81 mg a day, Coreg 12.5 mg b.i.d., Eliquis 5 mg b.i.d., lisinopril 5 mg a day, tramadol as needed, torsemide 20 mg a day, Zyrtec daily, metolazone 2.5 mg on Mondays and , potassium chloride daily, vitamin D, Xanax, sertraline, Humira, and Ivana. SOCIAL HISTORY: He lives at home. He has no alcohol or tobacco abuse. Family is very supportive. REVIEW OF SYSTEMS: A 12-point review of systems unremarkable except for the shortness of breath and some confusion and overall generalized weakness and the overall generalized pain. ALLERGIES: HE IS ALLERGIC TO IODINE, PENICILLIN, AND STATINS. PHYSICAL EXAMINATION: GENERAL: Reveals a middle-aged gentleman, in no acute distress. VITAL SIGNS: Blood pressure is 117/68, heart rate is 82 and shows underlying atrial fibrillation with ventricular pacing, and respiratory rate 16. HEENT: Shows head to be normocephalic and atraumatic. Carotid pulses are present. I do not hear any significant bruits at this time. CHEST: Clear anteriorly. I do not hear any significant rales, rhonchi, or wheezing. CARDIOVASCULAR: Reveals irregular rhythm. He has a soft systolic murmur at the lower sternal border. He has also a well-healed midline surgical incision after median sternotomy. He has a well-healed incision over the AICD underneath the left infraclavicular area. ABDOMEN: Unremarkable. Positive bowel sounds are present. EXTREMITIES: Showed no clubbing or cyanosis. He had no significant edema. NEUROLOGIC: He appears to be intact at this time. He is aware of where he is, who he is, and is alert and oriented x3. LABORATORY DATA: Shows a hemoglobin of 8.7 with hematocrit of 27.9, WBC of 9.6 , and platelet count of 328,000. Potassium is 3.8, BUN 46, and creatinine 1.66, and blood sugar 165. BNP was elevated at 547, most likely associated with his diastolic heart failure. Cardiac enzymes are negative. IMPRESSION: 1. Mental status changes and dehydration, which have improved after IV fluids. We will continue with the fluids and hopefully, he will be able to be discharged in the next 1 to 2 days. 2. History of cardiomyopathy, ejection fraction has been slightly decreased in the past, but it is not severe. At this time, he had some improvement after undergoing a Bi-V AICD implant. He does have pacing in the ventricle, majority, but not all the time and this appears to be stable. 3. History of coronary artery disease, which also appears to be stable. He is status post bypass surgery. 4. History of chronic pain syndrome. His worst complaint is this chronic pain for which he does receive injections. Hopefully, he will be able to resume these. 5. History of hypertension, which is under good control at this time. We will be more than happy to continue to follow the patient with you, but at this time, overall cardiac status appears to be stable. I will obtain an echocardiogram if he has not had one done within the last couple of months to evaluate for his ejection fraction. His last echocardiogram was in October of 2018. Otherwise, I would agree with the present management, I have reviewed the medications and certainly hold his diuretics at this time; at some time, we will need to resume them, perhaps at a lower dose and will need to be followed very carefully. He was not eating and drinking prior to coming to the hospital, most likely due to his associated pain. Job ID: [id number] MTDD
[2019-05-07 18:16] LABS: Hemoglobin 8.8 g/dL (14.0-18.0)
[2019-05-07] MEDS: Mometasone/Formoterol 120 PUFF INHALER INH SCH (18:48)
[2019-05-08 00:02] LABS: Hemoglobin 7.9 g/dL (14.0-18.0)
[2019-05-08] MEDS: Mometasone/Formoterol 120 PUFF INHALER INH SCH ×2 (07:28→22:32)
[2019-05-08 07:37] LABS: #Lymphocytes 0.8 thou/uL (1.20-3.40); #Monocytes 0.3 thou/uL (0.11-0.59); #Neutrophils 7.6 thou/uL (1.40-6.50); %Basophils 0.4 % (0.0-1.0); %Eosinophils 0.1 % (0.0-10.0); %Lymphocytes 9.5 % (21.0-51.0); %Monocytes 3.5 % (0.0-10.0); %Neutrophils 86.5 % (42.0-75.0); Hemoglobin 7.8 g/dL (14.0-18.0); Mean Corpuscular HGB CONC 31.2 g/dL (32.0-36.0); Mean Corpuscular Hemoglobin 27.8 pg (27.0-31.0); Mean Corpuscular Volume 89.2 fL (78.0-98.0); Mean Platelet Volume 7.4 fL (7.4-10.4); Platelet Count 325 thou/uL (130-400); RBC Distribution Width 14.4 % (11.5-14.5); Red Blood Cell (RBC) Count 2.81 mill/uL (4.70-6.10); White Blood Cell (WBC) Count 8.7 thou/uL (4.8-10.8)
[2019-05-08 07:58] LABS: Anion Gap 14 mmol/L (10-20); BUN (Urea Nitrogen) 36 mg/dL (8.4-25.7); Calc. Creatinine Clearance 42 mL/min (70-130); Calcium 8.9 mg/dL (7.8-10.44); Carbon Dioxide 28 mmol/L (23-31); Chloride 101 mmol/L (98-107); Estimated GFR-MDRD 51; Glucose 152 mg/dL (83-110); Potassium 3.7 mmol/L (3.5-5.1); Sodium 139 mmol/L (136-145)
[2019-05-08] MEDS: Aspirin Chewable 81 MG TAB PO SCH (08:00)
[2019-05-08] MEDS: Sodium Chloride 0.9% 1,000 ML IV SCH (08:01)
[2019-05-08] MEDS: Torsemide 20 MG TAB PO SCH (08:26)
[2019-05-08] MEDS: methylPREDNISolone Sod Succ 40 MG VIAL IVP SCH (08:26)
[2019-05-08 11:46] VITALS: BMI 25.7
--- NOTE | 2019-05-08 11:51 | PDOC.PN ---
- Subjective Encounter Start Date: 05/08/19 Encounter Start Time: 10:30 Patient seen and examined. No new complaints. No overnight events he is off levophed drip, he does not have any complaints - Objective Resuscitation Status - Order Detail: 05/07/19 00:22 Resuscitation Status Routine Resuscitation Status: FULL: Full Resuscitation MAR Reviewed: Yes Vital Signs & Weight: Vital Signs (12 hours) Temp Pulse Resp Pulse Ox 05/08/19 07:31 100 05/08/19 07:28 92 18 100 05/08/19 07:19 100 05/08/19 07:00 97.7 F 05/08/19 04:00 98.2 F 05/08/19 00:00 98.3 F Weight Admit Weight 166 lb 7.184 oz Weight 154 lb 15.759 oz Most Recent Monitor Data Heart Rate from ECG 93 NIBP 94/57 NIBP BP-Mean 69 Respiration from ECG 20 SpO2 100 I&O: 05/07/19 05/08/19 05/09/19 06:59 06:59 06:59 Intake Total 880 2698.2 480 Output Total 10 1450 400 Balance 870 1248.2 80 Result Diagrams: 05/08/19 07:13 05/08/19 07:13 EKG Reviewed by me: Yes Phys Exam - Physical Examination Constitutional: NAD HEENT: PERRLA, moist MMs, sclera anicteric Neck: no JVD, supple Respiratory: no wheezing, no rales, no rhonchi Cardiovascular: no rub, irregular SM+ Gastrointestinal: soft, non-tender, no distention, positive bowel sounds Musculoskeletal: no edema, pulses present Neurological: non-focal, normal sensation Lymphatic: no nodes Psychiatric: normal affect, A&O x 3 Skin: no rash, normal turgor Dx/Plan (1) Acute worsening of stage 3 chronic kidney disease Code(s): N18.3 - CHRONIC KIDNEY DISEASE, STAGE 3 (MODERATE) Status: Acute (2) Hypotension Status: Resolved (3) Anemia, normocytic normochromic Code(s): D64.9 - ANEMIA, UNSPECIFIED Status: Chronic (4) Anxiety and depression Code(s): F41.9 - ANXIETY DISORDER, UNSPECIFIED; F32.9 - MAJOR DEPRESSIVE DISORDER, SINGLE EPISODE, UNSPECIFIED Status: Chronic (5) CAD (coronary artery disease) Code(s): I25.10 - ATHSCL HEART DISEASE OF [place] CORONARY ARTERY W/O ANG PCTRS Status: Chronic (6) COPD (chronic obstructive pulmonary disease) Status: Chronic (7) Chronic anticoagulation Code(s): Z79.01 - POSITION CLASSIFIER (CURRENT) USE OF 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 Status: Chronic (8) Chronic atrial fibrillation Code(s): I48.2 - CHRONIC ATRIAL FIBRILLATION Status: Chronic (9) Chronic stage c diastolic heart failure Code(s): I50.32 - CHRONIC DIASTOLIC (CONGESTIVE) HEART FAILURE Status: Chronic (10) HTN (hypertension) Code(s): I10 - ESSENTIAL (PRIMARY) HYPERTENSION Status: Chronic Qualifiers: (11) Moderate aortic stenosis by prior echocardiogram Code(s): I35.0 - NONRHEUMATIC AORTIC (VALVE) STENOSIS Status: Chronic (12) Rheumatoid arthritis Code(s): M06.9 - RHEUMATOID ARTHRITIS, UNSPECIFIED Status: Chronic - Plan cont current plan of care, PT/OT * medication reviewed as below * symptomatic treatment * continue to monitor vitals * as his Hb dropped, will check FOBT * echo result pending * cardiology recommendation appreciated * repeat labs tomorrow. Review of Systems - Review of Systems ENT: negative: Ear Pain, Ear Discharge, Nose Pain, Nose Discharge, Nose Congestion, Mouth Pain, Mouth Swelling, Throat Pain, Throat Swelling, Other Respiratory: negative: Cough, Dry, Shortness of Breath, Hemoptysis, SOB with Excertion, Pleuritic Pain, Sputum, Wheezing Cardiovascular: negative: chest pain, palpitations, orthopnea, paroxysmal nocturnal dyspnea, edema, light headedness, other Gastrointestinal: negative: Nausea, Vomiting, Abdominal Pain, Diarrhea, Constipation, Melena, Hematochezia, Other Genitourinary: negative: Dysuria, Frequency, Incontinence, Hematuria, Retention , Other Musculoskeletal: negative: Neck Pain, Shoulder Pain, Arm Pain, Back Pain, Hand Pain, Leg Pain, Foot Pain, Other - Medications/Allergies Allergies/Adverse Reactions: Allergies Allergy/AdvReac Type Severity Reaction Status Date / Time Iodinated Contrast- Oral and Allergy Verified 04/22/19 14:50 IV Dye [Iodinated Contrast Media - IV Dye] iodine Allergy Verified 04/22/19 14:50 Penicillins Allergy Verified 04/22/19 14:50 Fljzune-Osr-Fmh Reductase Allergy Verified 04/22/19 14:50 Inhibitor Medications: Current Medications Acetaminophen (Tylenol) 650 mg PO Q4H PRN PRN Reason: Headache/Fever/Mild Pain (1-3) Acetaminophen (Tylenol) 650 mg [place] Q4H PRN PRN Reason: Headache/Fever/Mild Pain (1-3) Albuterol Sulfate (Proventil Hfa) 1 puff INH Q4H PRN PRN Reason: SOB &/or Wheezing Albuterol/Ipratropium (Duoneb) 3 ml NEB TIDPRN PRN PRN Reason: Wheezing Albuterol/Ipratropium (Duoneb) 3 ml NEB [id number] [facility] Last Admin: 05/08/19 07:28 Dose: 3 ml Artificial Tears (Tears Naturale) 2 drop EA EYE PRN PRN PRN Reason: Dry Eyes Aspirin (Aspirin Chewable) 81 mg PO QAM-WM [facility] Last Admin: 05/08/19 08:00 Dose: 81 mg Bisacodyl (Dulcolax) 10 mg PO DAILYPRN PRN PRN Reason: Constipation Ergocalciferol (Drisdol) 1.25 mg PO Q7D [facility] Last Admin: 05/07/19 08:44 Dose: 1.25 mg Guaifenesin (Robitussin Sf) 200 mg PO Q4H PRN PRN Reason: Cough Norepinephrine Bitartrate 8 mg (/ Dextrose/Water) 250 mls @ 0 mls/hr IVPB INF PRN; Protocol PRN Reason: TO MAINTAIN MAP > 65 Sodium Chloride (Normal Saline 0.9%) 1,000 mls @ 75 mls/hr IV .[id number] [facility] Last Admin: 05/08/19 08:01 Dose: Not Given Loperamide HCl (Imodium) 2 mg PO PRN PRN PRN Reason: Diarrhea/Loose Stools Loratadine (Claritin) 10 mg PO DAILYPRN PRN PRN Reason: Sinus Symptoms Methylprednisolone Sodium Succinate (Solu-Medrol) 40 mg IVP DAILY [facility] Last Admin: 05/08/19 08:26 Dose: 40 mg Mometasone Furoate/Formoterol Fumar (Dulera 200 Mcg/5 Mcg Inhaler) 2 puff INH BID-RT [facility] Last Admin: 05/08/19 07:28 Dose: 2 puff Morphine Sulfate (Morphine) 2 mg SLOW IVP Q4H PRN PRN Reason: Severe Pain (7-10) Last Admin: 05/07/19 03:25 Dose: 2 mg Ondansetron HCl (Zofran Odt) 4 mg PO Q6H PRN PRN Reason: Nausea/Vomiting Ondansetron HCl (Zofran) 4 mg IVP Q6H PRN PRN Reason: Nausea/Vomiting Senna/Docusate Sodium (Senokot S) 2 tab PO BIDPRN PRN PRN Reason: Constipation Sertraline HCl (Zoloft) 25 mg PO DAILY [facility] Last Admin: 05/08/19 08:26 Dose: 25 mg Sodium Chloride (Flush - Normal Saline) 10 ml IVF PRN PRN PRN Reason: Saline Flush Sodium Chloride ([place] Nas[place] 0.65%) 0 ml EA NARE QIDPRN PRN PRN Reason: Nasal Congestion Throat Lozenges (Cepastat Lozenges) 1 marianne PO Q2H PRN PRN Reason: Sore Throat Torsemide (Demadex) [facility] [facility] [place] Admin: 05/08/19 08:26 Dose: 20 mg
--- NOTE | 2019-05-08 12:51 | PDOC.CTH ---
Cardiology Progress Note - Subjective The pt seen and examined. No overnight events. No cardiac complaints. - Objective Vital Signs Temp Pulse Resp Pulse Ox 05/08/19 12:39 93 16 100 05/08/19 12:00 98.6 F 05/08/19 07:31 100 05/08/19 07:28 92 18 100 05/08/19 07:19 100 05/08/19 07:00 97.7 F 05/08/19 04:00 98.2 F Admit Weight 166 lb 7.184 oz Weight 154 lb 15.759 oz 05/07/19 05/08/19 05/09/19 06:59 06:59 06:59 Intake Total 880 2698.2 480 Output Total 10 1450 550 Balance 870 1248.2 -70 - Physical Examination General/Neuro: alert & oriented x3 Neck: no JVD present Lungs: other: (diminished at bases) Heart: RRR Abdomen: soft Extremities: other: (No edema) - Telemetry Telemetry Rhythm: SR - Labs Result Diagrams: 05/08/19 07:13 05/08/19 07:13 Troponin/CKMB Troponin I 0.020 ng/mL (< 0.028) 05/06/19 17:31 - Assessment/Plan 1. AMS 2/2 dehydration - improved; 2. Acute Anemia - FOBT by PCP 3. 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 Parox Afib with hx of PVAI in 10/2018 and DCCV on 04/02/2019 - remains in SR ; Not on Coreg which will resume with stable BP; Not on Eliquis 2.5mg BID which is on hold due to acute anemia; 5. CAD with hx of CABG - stable with ASA and statin; but no BBlocker or RADHA/ARB due to hypotension/dehydration 6. Chronic Diastolic HF - stable with Torsemide; no BBlocker or RADHA/ARB due to hypotension/dehydration 7. CKD - unchanged 8. HTN - stable 9. COPD - 10. Chronic pain syndrome - 11. Gout - MAR reviewed Pt.seen and eval. by me.I agree with the A/P by the PHARMACY SALESPERSON. He is feeling better today, The H/H is decreased but this may be dilutional after IV fluids. Chest clear. RRR. Resume betablockers when BP stable. In future may need to decrease the diuretics slightly. Review of Systems - Review of Systems Constitutional: reports: weakness EENTM: reports: no symptoms reported Respiratory: reports: no symptoms reported Cardiac (ROS): reports: no symptoms reported ABD/GI: reports: no symptoms reported : reports: no symptoms reported Musculoskeletal: reports: no symptoms reported Skin: reports: no symptoms reported
[2019-05-08] MEDS: Ondansetron PF 4 MG/2 ML Vial IVP PRN (17:07)
--- NOTE | 2019-05-08 19:42 | PRG ---
DATE OF SERVICE: 05/08/2019 SUBJECTIVE: Mr. Rogers appears to be stable. He had no new complaints. He is off pressors. He denied shortness of breath. OBJECTIVE: VITAL SIGNS: Blood pressure 122/66, heart rate 90, respiratory rate 20, and oximetry is 95%. LUNGS: Distant, but no wheezes heard. HEART: Regular rhythm. ABDOMEN: Soft and nontender. EXTREMITIES: Without asymmetry or edema. LABORATORY DATA: Hemoglobin 7.8 today. White count 8.7, platelets 325. Electrolytes are normal. BUN 36 and creatinine 1.34. IMPRESSION: 1. Encephalopathy, that is improved. 2. Intravascular volume depletion. 3. Anemia, approaching a point where he might benefit from blood transfusion. 4. History of an AICD for ischemic cardiomyopathy. 5. History of atrial fibrillation in sinus rhythm. 6. History of coronary artery bypass grafting and diastolic heart failure. 7. Chronic kidney disease. 8. History of hypertension. 9. Chronic obstructive pulmonary disease, which at this point in time appears to be stable. PLAN: Given his clinical improvement, he may be a candidate to move out of the Critical Care Unit. We will defer to Cardiology and hospitalist. Job ID: [id number]
[2019-05-09] MEDS: Mometasone/Formoterol 120 PUFF INHALER INH SCH ×2 (06:33→19:15)
[2019-05-09] MEDS: Aspirin Chewable 81 MG TAB PO SCH (08:24)
[2019-05-09] MEDS: Torsemide 20 MG TAB PO SCH (08:24)
[2019-05-09] MEDS ORDERED: Apixaban 5 MG TAB PO SCH (09:00)
--- NOTE | 2019-05-09 10:10 | PDOC.PN ---
- Subjective Encounter Start Date: 05/09/19 Encounter Start Time: 07:20 Patient seen and examined. No new complaints. No overnight events - Objective Resuscitation Status - Order Detail: 05/07/19 00:22 Resuscitation Status Routine Resuscitation Status: FULL: Full Resuscitation MAR Reviewed: Yes Vital Signs & Weight: Vital Signs (12 hours) Temp Pulse Resp BP Pulse Ox 05/09/19 07:44 97.7 F 94 18 114/62 96 05/09/19 06:33 92 16 05/09/19 06:26 92 20 05/09/19 04:00 97.5 F L 86 18 129/74 97 05/08/19 22:31 83 16 100 Weight Admit Weight 166 lb 7.184 oz Weight 177 lb Most Recent Monitor Data Heart Rate from ECG 90 NIBP 122/66 NIBP BP-Mean 84 Respiration from ECG 20 SpO2 95 I&O: 05/08/19 05/09/19 05/10/19 06:59 06:59 06:59 Intake Total 2698.2 1524 Output Total 1450 1530 Balance 1248.2 -6 Result Diagrams: 05/08/19 07:13 05/08/19 07:13 EKG Reviewed by me: Yes Phys Exam - Physical Examination Constitutional: NAD HEENT: PERRLA, moist MMs, sclera anicteric Neck: no JVD, supple Respiratory: no wheezing, no rales, no rhonchi Cardiovascular: no significant murmur, no rub, irregular Gastrointestinal: soft, non-tender, no distention, positive bowel sounds Musculoskeletal: no edema, pulses present Neurological: non-focal, normal sensation Lymphatic: no nodes Psychiatric: normal affect, A&O x 3 Skin: no rash, normal turgor Dx/Plan (1) Acute worsening of stage 3 chronic kidney disease Code(s): N18.3 - CHRONIC KIDNEY DISEASE, STAGE 3 (MODERATE) Status: Acute (2) Hypotension Status: Resolved (3) Anemia, normocytic normochromic Code(s): D64.9 - ANEMIA, UNSPECIFIED Status: Chronic (4) Anxiety and depression Code(s): F41.9 - ANXIETY DISORDER, UNSPECIFIED; F32.9 - MAJOR DEPRESSIVE DISORDER, SINGLE EPISODE, UNSPECIFIED Status: Chronic (5) CAD (coronary artery disease) Code(s): I25.10 - ATHSCL HEART DISEASE OF [place] CORONARY ARTERY W/O ANG PCTRS Status: Chronic (6) COPD (chronic obstructive pulmonary disease) Status: Chronic (7) Chronic anticoagulation Code(s): Z79.01 - 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) USE OF 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 Status: Chronic (8) Chronic atrial fibrillation Code(s): I48.2 - CHRONIC ATRIAL FIBRILLATION Status: Chronic (9) Chronic stage c diastolic heart failure Code(s): I50.32 - CHRONIC DIASTOLIC (CONGESTIVE) HEART FAILURE Status: Chronic (10) HTN (hypertension) Code(s): I10 - ESSENTIAL (PRIMARY) HYPERTENSION Status: Chronic Qualifiers: (11) Rheumatoid arthritis Code(s): M06.9 - RHEUMATOID ARTHRITIS, UNSPECIFIED Status: Chronic - Plan cont current plan of care, plan discussed w/ family renal function has improvement, guaic positive, has drop in Hb, so will consult GI, today will adjust his BP meds, I will monitor today in hospital, ambulate as tolerated, spoke with daughter who agreed to keep him in hospital. Review of Systems - Review of Systems ENT: negative: Ear Pain, Ear Discharge, Nose Pain, Nose Discharge, Nose Congestion, Mouth Pain, Mouth Swelling, Throat Pain, Throat Swelling, Other Respiratory: negative: Cough, Dry, Shortness of Breath, Hemoptysis, SOB with Excertion, Pleuritic Pain, Sputum, Wheezing Cardiovascular: negative: chest pain, palpitations, orthopnea, paroxysmal nocturnal dyspnea, edema, light headedness, other Gastrointestinal: negative: Nausea, Vomiting, Abdominal Pain, Diarrhea, Constipation, Melena, Hematochezia, Other Genitourinary: negative: Dysuria, Frequency, Incontinence, Hematuria, Retention , Other Musculoskeletal: negative: Neck Pain, Shoulder Pain, Arm Pain, Back Pain, Hand Pain, Leg Pain, Foot Pain, Other - Medications/Allergies Allergies/Adverse Reactions: Allergies Allergy/AdvReac Type Severity Reaction Status Date / Time Iodinated Contrast- Oral and Allergy Verified 04/22/19 14:50 IV Dye [Iodinated Contrast Media - IV Dye] iodine Allergy Verified 04/22/19 14:50 Penicillins Allergy Verified 04/22/19 14:50 Ddshwxe-Cyw-Gip Reductase Allergy Verified 04/22/19 14:50 Inhibitor Medications: Current Medications Acetaminophen (Tylenol) 650 mg PO Q4H PRN PRN Reason: Headache/Fever/Mild Pain (1-3) Albuterol Sulfate (Proventil Hfa) 1 puff INH Q4H PRN PRN Reason: SOB &/or Wheezing Albuterol/Ipratropium (Duoneb) 3 ml NEB TIDPRN PRN PRN Reason: Wheezing Albuterol/Ipratropium (Duoneb) 3 ml NEB [id number] [facility] Last Admin: 05/09/19 06:26 Dose: 3 ml Apixaban (Eliquis) 2.5 mg PO BID [facility] Artificial Tears (Tears Naturale) 2 drop EA EYE PRN PRN PRN Reason: Dry Eyes Aspirin (Aspirin Chewable) 81 mg PO QAM-WM [facility] Last Admin: 05/09/19 08:24 Dose: 81 mg Bisacodyl (Dulcolax) 10 mg PO DAILYPRN PRN PRN Reason: Constipation Ergocalciferol (Drisdol) 1.25 mg PO Q7D [facility] Last Admin: 05/07/19 08:44 Dose: 1.25 mg Guaifenesin (Robitussin Sf) 200 mg PO Q4H PRN PRN Reason: Cough Loperamide HCl (Imodium) 2 mg PO PRN PRN PRN Reason: Diarrhea/Loose Stools Loratadine (Claritin) 10 mg PO DAILYPRN PRN PRN Reason: Sinus Symptoms Mometasone Furoate/Formoterol Fumar (Dulera 200 Mcg/5 Mcg Inhaler) 2 puff INH BID-RT [facility] Last Admin: 05/09/19 06:33 Dose: 2 puff Morphine Sulfate (Morphine) 2 mg SLOW IVP Q4H PRN PRN Reason: Severe Pain (7-10) Last Admin: 05/07/19 03:25 Dose: 2 mg Ondansetron HCl (Zofran Odt) 4 mg PO Q6H PRN PRN Reason: Nausea/Vomiting Ondansetron HCl (Zofran) 4 mg IVP Q6H PRN PRN Reason: Nausea/Vomiting Senna/Docusate Sodium (Senokot S) 2 tab PO BIDPRN PRN PRN Reason: Constipation Sertraline HCl (Zoloft) 25 mg PO DAILY [facility] Last Admin: 05/09/19 08:24 Dose: 25 mg Sodium Chloride (Flush - Normal Saline) 10 ml IVF PRN PRN PRN Reason: Saline Flush Last Admin: 05/09/19 08:24 Dose: 10 ml Sodium Chloride ([place] Nasal [place] 0.65%) 0 ml EA NARE QIDPRN PRN PRN Reason: Nasal Congestion Throat Lozenges (Cepastat Lozenges) 1 marianne PO Q2H PRN PRN Reason: Sore Throat Torsemide (Demadex) 20 mg PO QAM [facility] Last Admin: 05/09/19 08:24 Dose: 20 mg
--- NOTE | 2019-05-09 13:31 | PRG ---
DATE OF SERVICE: 05/09/2019 SUBJECTIVE: Mr. Rogers is doing well. He has no complaints. He wants to go home. OBJECTIVE: VITAL SIGNS: He is afebrile. Heart rate 86, respiratory rate 18, oximetry is 96% on room air, and blood pressure 142/71. LUNGS: Clear. HEART: Regular rhythm. ABDOMEN: Soft. LABORATORY DATA: There is no new lab today. IMPRESSION: 1. Chronic obstructive pulmonary disease, clinically stable. 2. Improved encephalopathy. 3. Intravascular volume depletion on presentation. 4. Anemia. Hemoglobin was 7.8 yesterday. This was not recheck today. This probably needs to be rechecked. 5. Status post pacemaker defibrillator. 6. Lqmg-tq-sbmanjky aortic insufficiency with evidence of pulmonary hypertension. 7. History of atrial fibrillation in sinus rhythm. 8. Diastolic heart failure. 9. Chronic kidney disease. Given his pulmonary stability, we will sign off. Job ID: [id number]
[2019-05-09] MEDS: Apixaban 2.5 MG TAB PO SCH (20:16)
--- NOTE | 2019-05-09 23:04 | EKG ---
Test Reason : DEHYDRATION Blood Pressure : / mmHG Vent. Rate : 092 BPM Atrial Rate : 040 BPM P-R Int : 176 ms QRS Dur : 180 ms QT Int : 428 ms P-R-T Axes : 049 024 077 degrees QTc Int : 529 ms Atrial pacer Right bundle branch block Abnormal ECG Confirmed by MOUNA TAPIA ([id number]), greeting card editor SHAWN LOZOYA ([id number]) on 05/09/2019 11:04:10 PM Referred By: Confirmed By:MOUNA TAPIA
[2019-05-10] MEDS: Mometasone/Formoterol 120 PUFF INHALER INH SCH ×2 (06:53→19:13)
[2019-05-10 07:31] LABS: #Eosinphils 0.2 thou/uL (0.0-0.7); #Lymphocytes 1.9 thou/uL (1.20-3.40); #Monocytes 0.9 thou/uL (0.11-0.59); #Neutrophils 6.8 thou/uL (1.40-6.50); %Basophils 0.3 % (0.0-1.0); %Eosinophils 1.6 % (0.0-10.0); %Lymphocytes 19.8 % (21.0-51.0); %Monocytes 9.2 % (0.0-10.0); Hemoglobin 9.1 g/dL (14.0-18.0); Mean Corpuscular HGB CONC 32.2 g/dL (32.0-36.0); Mean Corpuscular Hemoglobin 28.6 pg (27.0-31.0); Mean Corpuscular Volume 88.8 fL (78.0-98.0); Mean Platelet Volume 6.8 fL (7.4-10.4); Platelet Count 401 thou/uL (130-400); RBC Distribution Width 14.7 % (11.5-14.5); Red Blood Cell (RBC) Count 3.17 mill/uL (4.70-6.10); White Blood Cell (WBC) Count 9.8 thou/uL (4.8-10.8)
[2019-05-10 07:49] LABS: Anion Gap 12 mmol/L (10-20); BUN (Urea Nitrogen) 44 mg/dL (8.4-25.7); Calc. Creatinine Clearance 48 mL/min (70-130); Calcium 9.3 mg/dL (7.8-10.44); Carbon Dioxide 33 mmol/L (23-31); Chloride 100 mmol/L (98-107); Estimated GFR-MDRD 52; Glucose 150 mg/dL (83-110); Potassium 3.4 mmol/L (3.5-5.1); Sodium 142 mmol/L (136-145)
[2019-05-10] MEDS: Apixaban 2.5 MG TAB PO SCH ×2 (08:08→21:31)
[2019-05-10] MEDS: Torsemide 20 MG TAB PO SCH (08:09)
[2019-05-10] MEDS: Aspirin Chewable 81 MG TAB PO SCH (08:09)
[2019-05-10] MEDS: Morphine 4 MG/ML VIAL SLOW IVP PRN (08:12)
[2019-05-10] MEDS ORDERED: methylPREDNISolone Sod Succ/PF 125 MG/2 ML VIAL IVP SCH (08:45)
--- NOTE | 2019-05-10 09:48 | PDOC.PN ---
- Subjective Encounter Start Date: 05/10/19 Encounter Start Time: 09:40 pt is not feeling good today, he has worse back pain, he has gout flaring up in toe, - Objective Resuscitation Status - Order Detail: 05/07/19 00:22 Resuscitation Status Routine Resuscitation Status: FULL: Full Resuscitation MAR Reviewed: Yes Vital Signs & Weight: Vital Signs (12 hours) Temp Pulse Resp BP Pulse Ox 05/10/19 07:07 98.0 F 91 18 136/75 94 L 05/10/19 06:53 109 H 16 05/10/19 06:45 109 H 16 05/10/19 04:00 97.9 F 87 18 130/67 93 L Weight Admit Weight 166 lb 7.184 oz Weight 176 lb 11.2 oz Most Recent Monitor Data Heart Rate from ECG 90 NIBP 122/66 NIBP BP-Mean 84 Respiration from ECG 20 SpO2 95 I&O: 05/09/19 05/10/19 05/11/19 06:59 06:59 06:59 Intake Total 1524 1380 Output Total 1530 1380 Balance -6 0 Result Diagrams: 05/10/19 07:23 05/10/19 07:23 EKG Reviewed by me: Yes Phys Exam - Physical Examination Constitutional: NAD HEENT: PERRLA, moist MMs, sclera anicteric Neck: no JVD, supple Respiratory: no wheezing, no rales, no rhonchi, clear to auscultation bilateral Cardiovascular: no significant murmur, no rub Gastrointestinal: soft, non-tender, no distention, positive bowel sounds Musculoskeletal: no edema, pulses present Neurological: non-focal, normal sensation Psychiatric: normal affect, A&O x 3 Skin: no rash, normal turgor Dx/Plan (1) Acute worsening of stage 3 chronic kidney disease Code(s): N18.3 - CHRONIC KIDNEY DISEASE, STAGE 3 (MODERATE) Status: Acute (2) Hypotension Status: Resolved (3) Anemia, normocytic normochromic Code(s): D64.9 - ANEMIA, UNSPECIFIED Status: Chronic (4) Anxiety and depression Code(s): F41.9 - ANXIETY DISORDER, UNSPECIFIED; F32.9 - MAJOR DEPRESSIVE DISORDER, SINGLE EPISODE, UNSPECIFIED Status: Chronic (5) CAD (coronary artery disease) Code(s): I25.10 - ATHSCL HEART DISEASE OF [place] CORONARY ARTERY W/O ANG PCTRS Status: Chronic (6) COPD (chronic obstructive pulmonary disease) Status: Chronic (7) Chronic anticoagulation 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 Status: Chronic (8) Chronic atrial fibrillation Code(s): I48.2 - CHRONIC ATRIAL FIBRILLATION Status: Chronic (9) Chronic stage c diastolic heart failure Code(s): I50.32 - CHRONIC DIASTOLIC (CONGESTIVE) HEART FAILURE Status: Chronic (10) HTN (hypertension) Code(s): I10 - ESSENTIAL (PRIMARY) HYPERTENSION Status: Chronic Qualifiers: (11) Rheumatoid arthritis Code(s): M06.9 - RHEUMATOID ARTHRITIS, UNSPECIFIED Status: Chronic - Plan cont current plan of care * Hb has improvement * solumedrol one time given for acute gout * will add colchicine * check uric acid and crp * medication reviewed as below * symptomatic treatment. * replace potassium Review of Systems - Review of Systems ENT: negative: Ear Pain, Ear Discharge, Nose Pain, Nose Discharge, Nose Congestion, Mouth Pain, Mouth Swelling, Throat Pain, Throat Swelling, Other Respiratory: negative: Cough, Dry, Shortness of Breath, Hemoptysis, SOB with Excertion, Pleuritic Pain, Sputum, Wheezing Cardiovascular: negative: chest pain, palpitations, orthopnea, paroxysmal nocturnal dyspnea, edema, light headedness, other Gastrointestinal: negative: Nausea, Vomiting, Abdominal Pain, Diarrhea, Constipation, Melena, Hematochezia, Other Genitourinary: negative: Dysuria, Frequency, Incontinence, Hematuria, Retention , Other Musculoskeletal: negative: Neck Pain, Shoulder Pain, Arm Pain, Back Pain, Hand Pain, Leg Pain, Foot Pain, Other - Medications/Allergies Allergies/Adverse Reactions: Allergies Allergy/AdvReac Type Severity Reaction Status Date / Time Iodinated Contrast- Oral and Allergy Verified 04/22/19 14:50 IV Dye [Iodinated Contrast Media - IV Dye] iodine Allergy Verified 04/22/19 14:50 Penicillins Allergy Verified 04/22/19 14:50 Pwocxmz-Eji-Ucn Reductase Allergy Verified 04/22/19 14:50 Inhibitor Medications: Current Medications Acetaminophen (Tylenol) 650 mg PO Q4H PRN PRN Reason: Headache/Fever/Mild Pain (1-3) Albuterol Sulfate (Proventil Hfa) 1 puff INH Q4H PRN PRN Reason: SOB &/or Wheezing Albuterol/Ipratropium (Duoneb) 3 ml NEB TIDPRN PRN PRN Reason: Wheezing Albuterol/Ipratropium (Duoneb) 3 ml NEB C4IN-IV [facility] Last Admin: 05/10/19 06:45 Dose: 3 ml Apixaban (Eliquis) 2.5 mg PO BID [facility] Last Admin: 05/10/19 08:08 Dose: Not Given Artificial Tears (Tears Naturale) 2 drop EA EYE PRN PRN PRN Reason: Dry Eyes Aspirin (Aspirin Chewable) 81 mg PO QAM-WM [facility] Last Admin: 05/10/19 08:09 Dose: 81 mg Bisacodyl (Dulcolax) 10 mg PO DAILYPRN PRN PRN Reason: Constipation Colchicine (Colchicine) 0.6 mg PO BID [facility] Colchicine (Colchicine) 0.6 mg PO ONE [facility] Ergocalciferol (Drisdol) 1.25 mg PO Q7D [facility] Last Admin: 05/07/19 08:44 Dose: 1.25 mg Guaifenesin (Robitussin Sf) 200 mg PO Q4H PRN PRN Reason: Cough Loperamide HCl (Imodium) 2 mg PO PRN PRN PRN Reason: Diarrhea/Loose Stools Loratadine (Claritin) 10 mg PO DAILYPRN PRN PRN Reason: Sinus Symptoms Last Admin: 05/10/19 08:09 Dose: 10 mg Methylprednisolone Sodium Succinate (Solu-Medrol) 80 mg IVP NOW [facility] Stop: 05/10/19 12:00 Last Admin: 05/10/19 09:19 Dose: 80 mg Mometasone Furoate/Formoterol Fumar (Dulera 200 Mcg/5 Mcg Inhaler) 2 puff INH BID-RT [facility] Last Admin: 05/10/19 06:53 Dose: 2 puff Morphine Sulfate (Morphine) 2 mg SLOW IVP Q4H PRN PRN Reason: Severe Pain (7-10) Last Admin: 05/10/19 08:12 Dose: 2 mg Ondansetron HCl (Zofran Odt) 4 mg PO Q6H PRN PRN Reason: Nausea/Vomiting Ondansetron HCl (Zofran) 4 mg IVP Q6H PRN PRN Reason: Nausea/Vomiting Potassium Chloride (K-Dur) 40 meq PO ONE [facility] Senna/Docusate Sodium (Senokot S) 2 tab PO BIDPRN PRN PRN Reason: Constipation Sertraline HCl (Zoloft) 25 mg PO DAILY [facility] Last Admin: 05/10/19 08:09 Dose: 25 mg Sodium Chloride (Flush - Normal Saline) 10 ml IVF PRN PRN PRN Reason: Saline Flush Last Admin: 05/10/19 09:20 Dose: 10 ml Sodium Chloride ([place] Nasal [place] 0.65%) 0 ml EA NARE QIDPRN PRN PRN Reason: Nasal Congestion Throat Lozenges (Cepastat Lozenges) 1 marianne PO Q2H PRN PRN Reason: Sore Throat Torsemide (Demadex) 20 mg PO QAM [facility] Last Admin: 05/10/19 08:09 Dose: 20 mg
[2019-05-10] MEDS ORDERED: Colchicine 0.6 MG TAB PO SCH (10:00)
[2019-05-10] MEDS ORDERED: Potassium Chloride 20 MEQ TAB PO SCH (10:00)
[2019-05-10 13:12] LABS: CRP (Inflammatory) 4.67 mg/dL (= or < 0.5); Uric Acid 11.3 mg/dL (3.5-7.2)
--- NOTE | 2019-05-10 13:37 | PRG ---
DATE OF SERVICE: 05/10/2019 SUBJECTIVE: Mr. Rogers has no new complaints from pulmonary standpoint. He is frustrated that he will be in the hospital for the workup of his anemia. He is complaining of second toe in his foot that he claims is gout. He said he was unable to keep the covers on his toe last night and could not sleep. OBJECTIVE: VITAL SIGNS: He is afebrile. Heart rate 94, respiratory rate is 20, oximetry is 97% on room air, blood pressure 139/73. LUNGS: Clear. HEART: Regular rhythm. IMPRESSION: 1. Underlying chronic obstructive pulmonary disease, stable. 2. Gout. One dose of Medrol may help. An order was put in for 80 mg of IV Medrol once. We will continue to see him intermittently while he is in the hospital, but is not having any acute pulmonary issues at this time fortunately. Job ID: [id number]
--- NOTE | 2019-05-10 15:36 | PRG ---
DATE OF SERVICE: 05/10/2019 SUBJECTIVE: This is an 84-year-old hospitalized a few days ago with altered mental status and confusion. His mental status has markedly improved back to his baseline status. I was asked to see the patient because of his anemia and also positive stool guaiac. The patient had seen Dr. Ragland 3 weeks ago and had an EGD done, which was negative for any pathology. At that time, he had melena in stool. The patient had a colonoscopy 4 or 5 years ago in [place]. The patient is on anticoagulation, which has been on hold since yesterday afternoon. The patient complains of joint pain, gouty pain, and . He was seen by Dr. Lam and Solu-Medrol has been ordered. He is actually feeling better at the present time. He has been transfused 1 unit of packed RBCs. Blood count showed which was 7.8 yesterday, has come up to 9.1. Hematocrit 28.1. He has no abdominal pain, no nausea, no vomiting. PHYSICAL EXAMINATION: VITAL SIGNS: Afebrile, pulse 94, blood pressure 130/73. CARDIOVASCULAR: Within normal limits. LUNGS: Within normal limits. ABDOMEN: Soft. No organomegaly. No tenderness. No masses. IMPRESSION: 1. Anemia, occult gastrointestinal bleeding. 2. Negative esophagogastroduodenoscopy less than 3 weeks ago. 3. His anticoagulation is on hold for now. He will be seen by Dr. Ragland tomorrow, and he could decide whether he needs to have repeat endoscopic studies done. Job ID: [id number]
[2019-05-11 05:37] LABS: #Basophils 0.1 thou/uL (0.0-0.2); #Eosinphils 0.1 thou/uL (0.0-0.7); #Lymphocytes 1.3 thou/uL (1.20-3.40); #Monocytes 0.8 thou/uL (0.11-0.59); #Neutrophils 8.4 thou/uL (1.40-6.50); %Basophils 0.6 % (0.0-1.0); %Eosinophils 0.6 % (0.0-10.0); %Lymphocytes 12.6 % (21.0-51.0); %Monocytes 7.2 % (0.0-10.0); %Neutrophils 78.9 % (42.0-75.0); Hemoglobin 8.6 g/dL (14.0-18.0); Mean Corpuscular HGB CONC 32.8 g/dL (32.0-36.0); Mean Corpuscular Hemoglobin 29.1 pg (27.0-31.0); Mean Corpuscular Volume 88.8 fL (78.0-98.0); Mean Platelet Volume 7.3 fL (7.4-10.4); Platelet Count 409 thou/uL (130-400); RBC Distribution Width 14.6 % (11.5-14.5); Red Blood Cell (RBC) Count 2.95 mill/uL (4.70-6.10); White Blood Cell (WBC) Count 10.6 thou/uL (4.8-10.8)
[2019-05-11 06:05] LABS: Anion Gap 14 mmol/L (10-20); BUN (Urea Nitrogen) 47 mg/dL (8.4-25.7); Calc. Creatinine Clearance 50 mL/min (70-130); Calcium 9.2 mg/dL (7.8-10.44); Carbon Dioxide 30 mmol/L (23-31); Chloride 100 mmol/L (98-107); Estimated GFR-MDRD 55; Glucose 181 mg/dL (83-110); Potassium 3.5 mmol/L (3.5-5.1); Sodium 140 mmol/L (136-145)
[2019-05-11] MEDS: Mometasone/Formoterol 120 PUFF INHALER INH SCH ×2 (06:49→18:43)
[2019-05-11] MEDS: Apixaban 2.5 MG TAB PO SCH ×2 (08:27→20:59)
[2019-05-11] MEDS: Lisinopril 2.5 MG TAB PO SCH (08:28)
[2019-05-11] MEDS: Aspirin Chewable 81 MG TAB PO SCH (08:28)
[2019-05-11] MEDS: Torsemide 20 MG TAB PO SCH (08:28)
[2019-05-11] MEDS ORDERED: Carvedilol 3.125 MG TAB PO SCH ×2 (09:00→13:35)
--- NOTE | 2019-05-11 09:58 | PRG ---
DATE OF SERVICE: 05/11/2019 SUBJECTIVE: Donny Rogers, this morning, he is much better, less short of breath. His BUN and creatinine have stabilized. No longer short of breath or confused. OBJECTIVE: VITAL SIGNS: Saturations are 98% on room air, temperature 98, pulse 86, respiratory rate 19, and blood pressure 140/76. CHEST: Decreased breath sounds. No wheezing. CARDIAC: Normal S1 and S2. ABDOMEN: No masses. IMPRESSION: Congestive heart failure, chronic obstructive pulmonary disease, encephalopathy, renal failure. PLAN: He will be discharged home on present medication. Follow up with Pulmonary at any time. Job ID: [id number]
--- NOTE | 2019-05-11 10:33 | CON ---
DATE OF CONSULTATION: 05/09/2019 REASON FOR CONSULTATION: Anemia, occult GI bleeding. HISTORY OF PRESENT ILLNESS: Donny Rogers is a very pleasant 84-year-old male, hospitalized with altered mental status. Apparently, he suddenly become confused and disoriented. Since admission in the hospital, his mental status has improved. He is awake, alert, and communicative. He was seen along with his live-in partner in the room. The patient at the present time denies abdominal pain, nausea, or vomiting. He had one stool today, which looks dark, but not actually melanous. The patient apparently has had bleeding ulcer when he was living in [place] in 2013, and he was told to have bleeding gastric ulcer and duodenal ulcer. He also had a colonoscopy at the same time in 2013. The patient has history of coronary artery bypass graft, status post AICD placement in 2016. He is on Eliquis. He was seen by Dr. Ragland a couple of weeks ago with black tarry stool. He had an EGD done by Dr. Banks about more than 2 weeks ago. When asked about the operative port, the EGD was basically negative. The patient was hospitalized basically because of altered mental status and confusion. On admission on 05/06/2019, the WBC was 11,900, hemoglobin 9.7, hematocrit 30.6, two days ago, it was 8.8, hematocrit 27.3. The patient has no abdominal pain. There is no nausea, no vomiting. His bowel movements are fairly regular. No history of any weight loss. He is on Eliquis since his heart surgery and also cardiac arrhythmia. He is awake, alert, and communicative. He is able to tell me his birthday. He is alert and date, month, year, etc. He has no relevant history. ALLERGIES: PENICILLIN, STATINS, AND ALSO IODINE. SOCIAL HISTORY: The patient does not smoke or drink alcohol. MEDICAL ILLNESSES: 1. Coronary artery bypass graft in 2013. 2. AICD placement in 2016. 3. ERCP with papillotomy and stone extraction 3 years ago. 4. Bleeding gastric ulcer and duodenal ulcer in 2013. 5. Chronic acid reflux. 6. Gout. 7. Asthma. 8. Rheumatoid arthritis. 9. Hypertension. MEDICATION LIST: Reviewed, which include Eliquis, carvedilol, Humira, aspirin, torsemide, and lisinopril. 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 No CTA. No syncope, but was confused recently. His mental status is back to normal. RESPIRATORY: No history of chronic cough, hemoptysis, or dyspnea. CARDIOVASCULAR: No chest pain. No palpitation. No dyspnea, orthopnea, or PND. GI: No abdominal pain. No hematochezia. No melena. No dysphagia or odynophagia. : No dysuria, hematuria, or frequent urination. MUSCULOSKELETAL, NEURO, ENDOCRINE, HEMATOLOGIC: Not known. PHYSICAL EXAMINATION: GENERAL: He is a very pleasant elderly male, appears very comfortable. He is awake, alert, and communicative. VITAL SIGNS: Afebrile. Pulse is 89, blood pressure is 107/57. HEENT: Conjunctivae clear. NECK: Supple. No adenitis or thyromegaly noted. CARDIOVASCULAR: First and second heart sounds heard. LUNGS: Clear to auscultation. ABDOMEN: Soft. No organomegaly. No tenderness. No masses. Bowel sounds are normal. EXTREMITIES: Reveal no edema. CENTRAL NERVOUS SYSTEM: Grossly within normal limits. LABORATORY DATA: The most recent lab data from 05/08/2019 shows hemoglobin 7.8, hematocrit 24.1, MCV 89.2, and platelet count is 325,000, polymorphs 86, lymphocytes 9.5. Three days ago, his blood count was still low at 9.7, hematocrit 30.6. Chem-7 shows normal lytes, potassium 3.7, bicarb is 28, BUN is 36, creatinine is 1.34, glucose 152, calcium 8.9. BNP is high at 547.5. Lipase 24. He has stool for occult blood came back positive today. However, he has no history of any melena or rectal bleeding at the present time. CLINICAL IMPRESSION: 1. An 84-year-old male with coronary artery bypass graft, status post AICD placement, presents with altered mental status. The rectum exam is markedly improved. He is awake, alert, and oriented. He had melena about 3 weeks ago and was seen by Dr. Ragland and esophagogastroduodenoscopy, which was negative 2 weeks ago. The patient had a colonoscopy 5 years ago, which was negative. He is on Eliquis because of cardiac problems. I am not sure if he is bleeding from small bowel or from the colon. Blood count dropped down almost by 2 g since admission. 2. Hypertension. 3. Asthma. 4. Rheumatoid arthritis. 5. Hyperlipidemia. 6. Past history of bleeding gastric ulcers and ulcer in the duodenum. 7. History of negative colonoscopy 5 years ago. 8. History of endoscopic retrograde cholangiopancreatography, sphincterotomy, and stone extraction [address] Ragland[address] I had a long talk with Mr. Rogers and explained to him that because of the blood in the stool, dropped blood count remained colonoscopy. He has had negative colonoscopy 2 weeks ago. I see no reason to repeat EGD. The patient agreeable. I did inform him that he needs to be off the Eliquis at least for 2 days before the procedure can be done. In the meantime, we would recommend: 1. Follow up Hemoglobin and hematocrit. 2. Transfuse p.r.n. 3. Possible colonoscopy in the next 48 hours after the Eliquis is discontinued. Job ID: [id number]
--- NOTE | 2019-05-11 11:07 | DIS ---
DATE OF ADMISSION: 05/06/2019 DATE OF DISCHARGE: 05/11/2019 DISCHARGE DISPOSITION: Home. PRIMARY DISCHARGE DIAGNOSES: 1. Acute on chronic kidney failure, baseline chronic kidney disease stage 3. 2. Hypotension, resolved. 3. Guaiac-positive stool. 4. Status post 1 unit of blood transfusion. 5. Acute gout. SECONDARY DISCHARGE DIAGNOSES: 1. Chronic kidney disease, stage 3. 2. Normocytic normochromic anemia. 3. Anxiety and depression. 4. Coronary artery disease. 5. Chronic anticoagulation. 6. Chronic atrial fibrillation. 7. Chronic stage C diastolic heart failure. 8. Chronic obstructive pulmonary disease. 9. Hypertension. 10. Moderate aortic regurgitation. 11. Rheumatoid arthritis. 12. Severe tricuspid regurgitation. PRIMARY PROCEDURE/OPERATION: Central line placement and Levophed support. RADIOLOGICAL INVESTIGATION: Chest x-ray, CT brain, abdomen and pelvis CT scan, and echocardiography. SIGNIFICANT LABORATORY DATA: Hemoglobin 8.6. Creatinine 1.26. CRP 4.67. Uric acid 11.3. Urinalysis unremarkable. Blood culture negative. Stool for guaiac positive. Urine culture negative. DISCHARGE MEDICATIONS: 1. Ventolin inhaler one puff q.4 hourly p.r.n. 2. Humira 40 mg subcu as directed. 3. Eliquis 2.5 mg b.i.d. 4. Aspirin 81 mg daily. 5. Vitamin D2 of 50,000 units p.o. every week. 6. DuoNeb q.8 hourly p.r.n. 7. Zoloft 25 mg p.o. daily. 8. Torsemide 20 mg p.o. daily. 9. Symbicort 2 puffs inhalation b.i.d. 10. Nitroglycerin 0.4 mg sublingual p.r.n. 11. Coreg 3.125 mg p.o. b.i.d. 12. Colchicine 0.6 mg every other day. 13. Lisinopril 2.5 mg daily. 14. Protonix 40 mg p.o. daily. CONTRAINDICATION: None. CODE STATUS: Full code. INPATIENT POT FILLER: Dr. Melton of [facility] was following while in hospital. Dr. Solorzano of [facility] was following while in hospital. TEST RESULTS PENDING ON DISCHARGE: None. ALLERGIES: IODINATED CONTRAST, IODINE, PENICILLIN. DISCHARGE PLAN: Posthospital, the patient will follow up with primary care physician in 1 week. The patient will follow up with primary jig borer and first aid nurse as instructed. HOSPITAL COURSE: An 84-year-old male with above-mentioned medical problem, who was admitted by Dr. Godinez. Please see his H and P for further details. This patient was initially having hypotension and he required ICU admission. He was treated with Levophed drip. His Levophed drip gradually weaned off. He was also given IV fluid. He had dilutional hemoglobin dropped to the lowest number was 7.8. He was given 1 unit of blood transfusion. He had guaiac-positive stool. He also had acute on chronic kidney failure. For guaiac positive stool, we consulted first aid nurse and they recommended Dr. Ragland to decide about endoscopy as this patient also had recently upper endoscopy, which was unremarkable and the patient had a few years ago colonoscopy. If Dr. Ragland is not planning to do any procedure on this particular patient because of recently done, then we will consider discharging him home later on today. This patient's H and H are stable and he does not have any bleeding. We discussed risk and benefit of Eliquis and aspirin therapy on his regimen. The patient expressed understanding. Cardiology recommends to continue Eliquis therapy and that is why we resumed all those medication on discharge. This patient will need periodic monitoring of hemoglobin and periodic as needed blood transfusion. While in hospital, we noted that he had acute gout of toe and that was treated with Solu-Medrol one time dose and colchicine was prescribed as above. The patient also has hyperuricemia and that is why once acute gout attack is over, then the patient should benefit from allopurinol therapy. The patient had hypotension, but that was related with volume depletion. We ruled out infection. His culture remained negative. We wean off from Levophed drip as well. He did not require any antibiotic therapy. I have seen and examined the patient at bedside today. Plan of care discussed with the patient. PHYSICAL EXAMINATION: VITAL SIGNS: Currently, temperature 98.0, pulse 86, respiratory rate 19, saturation 94%, and blood pressure 145/76. Weight 173 pounds. GENERAL: The patient is currently alert, awake, in no obvious acute distress. HEENT: Head; normocephalic, atraumatic. LUNGS: Clear to auscultation without any rhonchi or rales. CARDIAC: S1 and S2. Regular without any murmur. ABDOMEN: Soft, benign. EXTREMITIES: No edema. NEUROLOGIC: Nonfocal examination. Overall, the patient is medically stable for discharge today. Job ID: [id number]
--- NOTE | 2019-05-11 11:54 | PDOC.PN ---
- Subjective Encounter Start Date: 05/11/19 Encounter Start Time: 10:40 Patient seen and examined. No new complaints. No overnight events - Objective Resuscitation Status - Order Detail: 05/07/19 00:22 Resuscitation Status Routine Resuscitation Status: FULL: Full Resuscitation MAR Reviewed: Yes Vital Signs & Weight: Vital Signs (12 hours) Temp Pulse Resp BP Pulse Ox 05/11/19 11:22 98.1 F 94 16 138/74 96 05/11/19 07:52 98.0 F 86 19 145/76 H 94 L 05/11/19 06:48 97 15 99 05/11/19 03:19 97.6 F 86 16 123/69 96 05/11/19 00:00 98.2 F 93 17 134/68 96 Weight Admit Weight 166 lb 7.184 oz Weight 173 lb 11.2 oz Most Recent Monitor Data Heart Rate from ECG 90 NIBP 122/66 NIBP BP-Mean 84 Respiration from ECG 20 SpO2 95 I&O: 05/10/19 05/11/19 05/12/19 06:59 06:59 06:59 Intake Total 1380 1230 Output Total 1380 975 Balance 0 255 Result Diagrams: 05/11/19 05:00 05/11/19 05:00 EKG Reviewed by me: Yes Phys Exam - Physical Examination Constitutional: NAD HEENT: PERRLA, moist MMs, sclera anicteric Neck: no JVD, supple Respiratory: no wheezing, no rales, no rhonchi Cardiovascular: no significant murmur, no rub Gastrointestinal: soft, non-tender, no distention Musculoskeletal: no edema, pulses present Neurological: non-focal, normal sensation Lymphatic: no nodes Psychiatric: normal affect, A&O x 3 Skin: no rash, normal turgor Dx/Plan (1) Acute worsening of stage 3 chronic kidney disease Code(s): N18.3 - CHRONIC KIDNEY DISEASE, STAGE 3 (MODERATE) Status: Acute (2) Hypotension Status: Resolved (3) Anemia, normocytic normochromic Code(s): D64.9 - ANEMIA, UNSPECIFIED Status: Chronic (4) Anxiety and depression Code(s): F41.9 - ANXIETY DISORDER, UNSPECIFIED; F32.9 - MAJOR DEPRESSIVE DISORDER, SINGLE EPISODE, UNSPECIFIED Status: Chronic (5) CAD (coronary artery disease) Code(s): I25.10 - ATHSCL HEART DISEASE OF [place] CORONARY ARTERY W/O ANG PCTRS Status: Chronic (6) COPD (chronic obstructive pulmonary disease) Status: Chronic (7) Chronic anticoagulation Code(s): Z79.01 - GUITAR INSTRUCTOR (CURRENT) USE OF 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 Status: Chronic (8) Chronic atrial fibrillation Code(s): I48.2 - CHRONIC ATRIAL FIBRILLATION Status: Chronic (9) Chronic stage c diastolic heart failure Code(s): I50.32 - CHRONIC DIASTOLIC (CONGESTIVE) HEART FAILURE Status: Chronic (10) HTN (hypertension) Code(s): I10 - ESSENTIAL (PRIMARY) HYPERTENSION Status: Chronic Qualifiers: (11) Rheumatoid arthritis Code(s): M06.9 - RHEUMATOID ARTHRITIS, UNSPECIFIED Status: Chronic - Plan cont current plan of care * medication reviewed as below * symptomatic treatment * see discharge susana. Review of Systems - Review of Systems ENT: negative: Ear Pain, Ear Discharge, Nose Pain, Nose Discharge, Nose Congestion, Mouth Pain, Mouth Swelling, Throat Pain, Throat Swelling, Other Respiratory: negative: Cough, Dry, Shortness of Breath, Hemoptysis, SOB with Excertion, Pleuritic Pain, Sputum, Wheezing Cardiovascular: negative: chest pain, palpitations, orthopnea, paroxysmal nocturnal dyspnea, edema, light headedness, other Gastrointestinal: negative: Nausea, Vomiting, Abdominal Pain, Diarrhea, Constipation, Melena, Hematochezia, Other Genitourinary: negative: Dysuria, Frequency, Incontinence, Hematuria, Retention , Other Musculoskeletal: negative: Neck Pain, Shoulder Pain, Arm Pain, Back Pain, Hand Pain, Leg Pain, Foot Pain, Other - Medications/Allergies Allergies/Adverse Reactions: Allergies Allergy/AdvReac Type Severity Reaction Status Date / Time Iodinated Contrast- Oral and Allergy Verified 04/22/19 14:50 IV Dye [Iodinated Contrast Media - IV Dye] iodine Allergy Verified 04/22/19 14:50 Penicillins Allergy Verified 04/22/19 14:50 [id number] Reductase Allergy Verified 04/22/19 14:50 Inhibitor Medications: Current Medications Acetaminophen (Tylenol) 650 mg PO Q4H PRN PRN Reason: Headache/Fever/Mild Pain (1-3) Albuterol Sulfate (Proventil Hfa) 1 puff INH Q4H PRN PRN Reason: SOB &/or Wheezing Albuterol/Ipratropium (Duoneb) 3 ml NEB TIDPRN PRN PRN Reason: Wheezing Albuterol/Ipratropium (Duoneb) 3 ml NEB [id number] [facility] Last Admin: 05/11/19 06:48 Dose: 3 ml Apixaban (Eliquis) 2.5 mg PO BID [facility] Last Admin: 05/11/19 08:27 Dose: Not Given Artificial Tears (Tears Naturale) 2 drop EA EYE PRN PRN PRN Reason: Dry Eyes Aspirin (Aspirin Chewable) 81 mg PO QAM-WM [facility] Last Admin: 05/11/19 08:28 Dose: 81 mg Bisacodyl (Dulcolax) 10 mg PO DAILYPRN PRN PRN Reason: Constipation Carvedilol (Coreg) 3.125 mg PO BID [facility] Last Admin: 05/11/19 08:28 Dose: 3.125 mg Colchicine (Colchicine) 0.6 mg PO TTH [facility] Ergocalciferol (Drisdol) 1.25 mg PO Q7D [facility] Last Admin: 05/07/19 08:44 Dose: 1.25 mg Guaifenesin (Robitussin Sf) 200 mg PO Q4H PRN PRN Reason: Cough Lisinopril (Zestril) 2.5 mg PO DAILY [facility] Last Admin: 05/11/19 08:28 Dose: 2.5 mg Loperamide HCl (Imodium) 2 mg PO PRN PRN PRN Reason: Diarrhea/Loose Stools Loratadine (Claritin) 10 mg PO DAILYPRN PRN PRN Reason: Sinus Symptoms Last Admin: 05/10/19 08:09 Dose: 10 mg Mometasone Furoate/Formoterol Fumar (Dulera 200 Mcg/5 Mcg Inhaler) 2 puff INH BID-RT [facility] Last Admin: 05/11/19 06:49 Dose: 2 puff Morphine Sulfate (Morphine) 2 mg SLOW IVP Q4H PRN PRN Reason: Severe Pain (7-10) Last Admin: 05/10/19 08:12 Dose: 2 mg Ondansetron HCl (Zofran Odt) 4 mg PO Q6H PRN PRN Reason: Nausea/Vomiting Ondansetron HCl (Zofran) 4 mg IVP Q6H PRN PRN Reason: Nausea/Vomiting Senna/Docusate Sodium (Senokot S) 2 tab PO BIDPRN PRN PRN Reason: Constipation Sertraline HCl (Zoloft) 25 mg PO DAILY [facility] Last Admin: 05/11/19 08:28 Dose: 25 mg Sodium Chloride (Flush - Normal Saline) 10 ml IVF PRN PRN PRN Reason: Saline Flush Last Admin: 05/10/19 09:20 Dose: 10 ml Sodium Chloride ([place] Nasal [place] 0.65%) 0 ml EA NARE QIDPRN PRN PRN Reason: Nasal Congestion Throat Lozenges (Cepastat Lozenges) 1 marianne PO Q2H PRN PRN Reason: Sore Throat Torsemide (Demadex) 20 mg PO QAM [facility] Last Admin: 05/11/19 08:28 Dose: 20 mg
[2019-05-11] MEDS ORDERED: Carvedilol 6.25 MG TAB PO SCH (13:45)
[2019-05-11] MEDS: Carvedilol 6.25 MG TAB PO SCH (14:16)
--- NOTE | 2019-05-11 17:43 | PDOC.CTH ---
Cardiology Progress Note - Subjective The pt seen and examined. No overnight events. No Cardiac complaints. - Objective Vital Signs Temp Pulse Pulse Pulse Resp BP BP 05/11/19 15:19 98.1 F 77 18 05/11/19 13:45 92 16 05/11/19 11:22 98.1 F 94 16 05/11/19 10:20 89 99 134/84 117/64 05/11/19 07:52 98.0 F 86 19 05/11/19 06:48 97 15 BP Pulse Ox 05/11/19 15:19 116/74 96 05/11/19 13:45 98 05/11/19 11:22 138/74 96 05/11/19 10:20 05/11/19 07:52 145/76 H 94 L 05/11/19 06:48 99 Admit Weight 166 lb 7.184 oz Weight 173 lb 11.2 oz 05/10/19 05/11/19 05/12/19 06:59 06:59 06:59 Intake Total 1380 1230 720 Output Total 1380 975 Balance 0 255 720 - Physical Examination General/Neuro: alert & oriented x3 Neck: no JVD present Lungs: CTA Heart: other: (irregular) Abdomen: soft Extremities: other: (No edema) - Telemetry Telemetry Rhythm: Afib - Labs Result Diagrams: 05/11/19 05:00 05/11/19 05:00 Troponin/CKMB Troponin I 0.020 ng/mL (< 0.028) 05/06/19 17:31 - Assessment/Plan 1. AMS 2/2 dehydration - improved; 2. Acute Anemia - FOBT by PCP 3. 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 Parox Afib with hx of PVAI in 10/2018 and DCCV on 04/02/2019 - converted back to Afib; Coreg was increased from 3.125mg to 6.25mg BID from today; stable BP; on Eliquis 2.5mg BID; cont. monitor H&H 5. CAD with hx of CABG - stable with ASA and statin and Coreg; 6. Chronic Diastolic HF - stable with Torsemide and coreg; 7. CKD - unchanged 8. HTN - stable 9. COPD - 10. Chronic pain syndrome - 11. Gout - MAR reviewed Pt. seen and eval. by me. Overall stable.HR slightly elevated. Increased Coreg. Chest clear. Regular rhythm- pacing. Review of Systems - Review of Systems Constitutional: reports: no symptoms reported EENTM: reports: no symptoms reported Respiratory: reports: no symptoms reported Cardiac (ROS): reports: no symptoms reported ABD/GI: reports: no symptoms reported : reports: no symptoms reported
[2019-05-11] MEDS ORDERED: GoLYTELY 4,000 ml Bottle PO SCH (19:15)
--- NOTE | 2019-05-11 20:27 | PRG ---
DATE OF SERVICE: 05/11/2019 SUBJECTIVE: Mr. Rogers is feeling well today. Did receive 1 unit of blood. He notes he has had no overt melena or rectal bleeding, but has had heme-positive stool here. He has not been taking iron at home. Denies taking NSAIDs at home. OBJECTIVE: VITAL SIGNS: Temperature 98, pulse 84, blood pressure 116/74. ABDOMEN: Soft, nontender. LUNGS: Clear. HEART: Regular rate and rhythm without clicks or murmurs. LABORATORY DATA: White count 10.6, hemoglobin 8.6, platelet count 409. BUN and creatinine are 47 and 1.26 with a GFR estimate 55. CRP was 4.67. ASSESSMENT: Admission with confusion. This seems to possibly be related to some dehydration and maybe even some of his chronic pain. This improved markedly. 1. Admitted with dehydration and prerenal azotemia. He is on diuretics for his history of heart failure. He has not been eating well by his own admittance. This seems to be related to his chronic pain. 2. Anemia. He underwent an upper endoscopy a couple weeks after being on PPI for 10 days for reported melena. Although his hemoglobin had dropped at that time from a baseline of 11.8 on November 07, 2018, to around 9 in late April. No overt bleeding or lesions were seen on his upper endoscopy. He [place] previous [place]oscop[place]. He has had hemorrhoids, but has had no bleeding with this. His last colonoscopy was in 2013. He has had a CAT scan of the abdomen and pelvis here with no overt abdominal lesions. 3. Heart failure. He has a pretty preserved ejection fraction, but he has defibrillator and pacemaker keeps going back into atrial fibrillation. His ejection fraction is 50% with normal right ventricular size and function, but he has significant pulmonary regurgitation and tricuspid regurgitation, characterized as severe in the tricuspid, [id number] in the pulmonic. PLAN: It is really unclear why this patient does not feel well at this time. I suspect some of it is due to his heart failure and his medications. He does have an elevated platelet count and sedimentation rate with really no overt signs of bleeding. One wonders about the occult infection or malignancy, although this seems less likely with a colonoscopy [place] of state. With his anemia, which is relatively new over the past 6 months, we are going to proceed with a colonoscopy while he is here in the hospital. He has been off his blood thinner now for a couple of days. We will proceed with colonoscopy tomorrow. Bowel prep this evening. He has been on a liquid diet today. Job ID: [id number]
[2019-05-12] MEDS: Mometasone/Formoterol 120 PUFF INHALER INH SCH ×2 (06:49→18:12)
[2019-05-12] MEDS: Carvedilol 6.25 MG TAB PO SCH ×2 (07:51→16:58)
[2019-05-12] MEDS: Aspirin Chewable 81 MG TAB PO SCH (07:51)
[2019-05-12] MEDS: Apixaban 2.5 MG TAB PO SCH (07:52)
[2019-05-12] MEDS: Torsemide 20 MG TAB PO SCH (07:52)
[2019-05-12] MEDS: Ondansetron PF 4 MG/2 ML Vial IVP PRN (07:52)
[2019-05-12] MEDS: Lisinopril 2.5 MG TAB PO SCH (07:52)
[2019-05-12] MEDS ORDERED: Colchicine 0.6 MG TAB PO SCH (09:00)
[2019-05-12] MEDS ORDERED: Ondansetron HCl/PF 4 MG/2 ML Vial IVP PRN (09:37)
--- NOTE | 2019-05-12 11:01 | PRG ---
DATE OF SERVICE: 05/12/2019 SUBJECTIVE: Donny Rogers is status post colonoscopy. Denies any shortness of breath, coughing, wheezing, or chest pain. OBJECTIVE: GENERAL: He is awake, alert, and responsive. VITAL SIGNS: Sats are 96% on room air, temperature 97, pulse 94, respirations 16, and blood pressure 136/70. CHEST: No wheezing or crackles. CARDIAC: Normal S1, S2. No gallops. ABDOMEN: No masses. IMPRESSION: 1. Chronic obstructive pulmonary disease. 2. Encephalopathy. 3. Congestive heart failure. PLAN: Pulmonary decker, disposition, as per primary care physician. He can be seen back in the office in several weeks. Job ID: [id number]
[2019-05-12] MEDS ORDERED: Iron Sucrose Complex 200 MG in Sodium Chloride 0.9% 250 ML 250 ML IVPB SCH (13:45)
[2019-05-12] MEDS ORDERED: Iron, Sodium Ferric Gluconate 250 MG in Sodium Chloride 0.9% 250 ML 250 ML IVPB SCH (14:15)
--- NOTE | 2019-05-12 14:22 | PDOC.PN ---
- Subjective Encounter Start Date: 05/12/19 Encounter Start Time: 07:45 Patient seen and examined. No new complaints. No overnight events - Objective Resuscitation Status - Order Detail: 05/07/19 00:22 Resuscitation Status Routine Resuscitation Status: FULL: Full Resuscitation MAR Reviewed: Yes Vital Signs & Weight: Vital Signs (12 hours) Temp Pulse Resp BP BP Pulse Ox 05/12/19 11:01 97.5 F L 85 19 115/63 94 L 05/12/19 10:51 97.5 F L 83 20 95/54 L 94 L 05/12/19 07:19 97.9 F 94 16 136/71 96 05/12/19 03:15 97.9 F 88 18 133/76 94 L Weight Admit Weight 166 lb 7.184 oz Weight 169 lb 1.6 oz Most Recent Monitor Data Heart Rate from ECG 90 NIBP 122/66 NIBP BP-Mean 84 Respiration from ECG 20 SpO2 95 I&O: 05/11/19 05/12/19 05/13/19 06:59 06:59 06:59 Intake Total 1230 5220 Output Total 975 Balance 255 5220 Result Diagrams: 05/11/19 05:00 05/11/19 05:00 EKG Reviewed by me: Yes Phys Exam - Physical Examination Constitutional: NAD HEENT: moist MMs, sclera anicteric Neck: no JVD, supple Respiratory: no wheezing, no rales, no rhonchi Cardiovascular: no significant murmur, no rub Gastrointestinal: soft, non-tender, no distention Musculoskeletal: no edema, pulses present Neurological: non-focal, normal sensation Psychiatric: normal affect, A&O x 3 Skin: no rash, normal turgor Dx/Plan (1) Acute worsening of stage 3 chronic kidney disease Code(s): N18.3 - CHRONIC KIDNEY DISEASE, STAGE 3 (MODERATE) Status: Acute (2) Hypotension Status: Resolved (3) Anemia, normocytic normochromic Code(s): D64.9 - ANEMIA, UNSPECIFIED Status: Chronic (4) Anxiety and depression Code(s): F41.9 - ANXIETY DISORDER, UNSPECIFIED; F32.9 - MAJOR DEPRESSIVE DISORDER, SINGLE EPISODE, UNSPECIFIED Status: Chronic (5) CAD (coronary artery disease) Code(s): I25.10 - ATHSCL HEART DISEASE OF [place] CORONARY ARTERY W/O ANG PCTRS Status: Chronic (6) COPD (chronic obstructive pulmonary disease) Status: Chronic (7) Chronic anticoagulation Code(s): Z79.01 - MATERIAL EXPEDITOR (CURRENT) USE OF 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 Status: Chronic (8) Chronic atrial fibrillation Code(s): I48.2 - CHRONIC ATRIAL FIBRILLATION Status: Chronic (9) Chronic stage c diastolic heart failure Code(s): I50.32 - CHRONIC DIASTOLIC (CONGESTIVE) HEART FAILURE Status: Chronic (10) HTN (hypertension) Code(s): I10 - ESSENTIAL (PRIMARY) HYPERTENSION Status: Chronic Qualifiers: (11) Rheumatoid arthritis Code(s): M06.9 - RHEUMATOID ARTHRITIS, UNSPECIFIED Status: Chronic - Plan cont current plan of care * IV Iron * DC after colonoscopy * medication reviewed as below * symptomatic treatment. Review of Systems - Review of Systems ENT: negative: Ear Pain, Ear Discharge, Nose Pain, Nose Discharge, Nose Congestion, Mouth Pain, Mouth Swelling, Throat Pain, Throat Swelling, Other Respiratory: negative: Cough, Dry, Shortness of Breath, Hemoptysis, SOB with Excertion, Pleuritic Pain, Sputum, Wheezing Cardiovascular: negative: chest pain, palpitations, orthopnea, paroxysmal nocturnal dyspnea, edema, light headedness, other Gastrointestinal: negative: Nausea, Vomiting, Abdominal Pain, Diarrhea, Constipation, Melena, Hematochezia, Other Genitourinary: negative: Dysuria, Frequency, Incontinence, Hematuria, Retention , Other Musculoskeletal: negative: Neck Pain, Shoulder Pain, Arm Pain, Back Pain, Hand Pain, Leg Pain, Foot Pain, Other - Medications/Allergies Allergies/Adverse Reactions: Allergies Allergy/AdvReac Type Severity Reaction Status Date / Time Iodinated Contrast- Oral and Allergy Verified 04/22/19 14:50 IV Dye [Iodinated Contrast Media - IV Dye] iodine Allergy Verified 04/22/19 14:50 Penicillins Allergy Verified 04/22/19 14:50 [id number]-Vlb Reductase Allergy Verified 04/22/19 14:50 Inhibitor Medications: Current Medications Acetaminophen (Tylenol) 650 mg PO Q4H PRN PRN Reason: Headache/Fever/Mild Pain (1-3) Albuterol Sulfate (Proventil Hfa) 1 puff INH Q4H PRN PRN Reason: SOB &/or Wheezing Albuterol/Ipratropium (Duoneb) 3 ml NEB TIDPRN PRN PRN Reason: Wheezing Albuterol/Ipratropium (Duoneb) 3 ml NEB [id number] [facility] Last Admin: 05/12/19 13:43 Dose: Not Given Apixaban (Eliquis) 2.5 mg PO BID [facility] Last Admin: 05/12/19 07:52 Dose: Not Given Artificial Tears (Tears Naturale) 2 drop EA EYE PRN PRN PRN Reason: Dry Eyes Aspirin (Aspirin Chewable) 81 mg PO QAM[facility] Last Admin: 05/12/19 07:51 Dose: 81 mg Bisacodyl (Dulcolax) 10 mg PO DAILYPRN PRN PRN Reason: Constipation Carvedilol (Coreg) 6.25 mg PO BID[facility] Last Admin: 05/12/19 07:51 Dose: 6.25 mg Colchicine (Colchicine) 0.6 mg PO TTH [facility] Last Admin: 05/12/19 07:52 Dose: 0.6 mg Ergocalciferol (Drisdol) 1.25 mg PO Q7D [facility] Last Admin: 05/07/19 08:44 Dose: 1.25 mg Guaifenesin (Robitussin Sf) 200 mg PO Q4H PRN PRN Reason: Cough Ferric Sodium Gluconate Complex 250 mg/ Sodium Chloride 270 mls @ 129.808 mls/ hr IVPB ONE [facility] Stop: 05/12/19 21:00 Lisinopril (Zestril) 2.5 mg PO DAILY [facility] Last Admin: 05/12/19 07:52 Dose: 2.5 mg Loperamide HCl (Imodium) 2 mg PO PRN PRN PRN Reason: Diarrhea/Loose Stools Loratadine (Claritin) 10 mg PO DAILYPRN PRN PRN Reason: Sinus Symptoms Last Admin: 05/10/19 08:09 Dose: 10 mg Mometasone Furoate/Formoterol Fumar (Dulera 200 Mcg/5 Mcg Inhaler) 2 puff INH BID-RT [facility] Last Admin: 05/12/19 06:49 Dose: Not Given Morphine Sulfate (Morphine) 2 mg SLOW IVP Q4H PRN PRN Reason: Severe Pain (7-10) Last Admin: 05/10/19 08:12 Dose: 2 mg Ondansetron HCl (Zofran Odt) 4 mg PO Q6H PRN PRN Reason: Nausea/Vomiting Ondansetron HCl (Zofran) 4 mg IVP Q6H PRN PRN Reason: Nausea/Vomiting Last Admin: 05/12/19 07:52 Dose: 4 mg Senna/Docusate Sodium (Senokot S) 2 tab PO BIDPRN PRN PRN Reason: Constipation Sertraline HCl (Zoloft) 25 mg PO DAILY [facility] Last Admin: 05/12/19 07:52 Dose: 25 mg Sodium Chloride (Flush - Normal Saline) 10 ml IVF PRN PRN PRN Reason: Saline Flush Last Admin: 05/10/19 09:20 Dose: 10 ml Sodium Chloride ([place] Nasal [place] 0.65%) 0 ml EA NARE QIDPRN PRN PRN Reason: Nasal Congestion Sodium Chloride (Flush - Normal Saline) 10 ml IVF PRN PRN PRN Reason: Saline Flush Throat Lozenges (Cepastat Lozenges) 1 marianne PO Q2H PRN PRN Reason: Sore Throat Torsemide (Demadex) 20 mg PO QAM [facility] Last Admin: 05/12/19 07:52 Dose: 20 mg
[2019-05-12] MEDS ORDERED: PHENYLEPHRINE-NS 100 MCG/ML 10 ML SYRINGE ONE (14:54)
[2019-05-12] MEDS ORDERED: PROPOFOL 200 MG/20 ML VIAL ONE (14:54)
[2019-05-12] MEDS ORDERED: Lidocaine 1% PF 5 ML VIAL ONE (14:54)
[2019-05-12] MEDS ORDERED: ePHEDrine 50 MG/ML VIAL ONE (14:54)
[2019-05-12 15:02] VITALS: BP 122/80; TEMP 98.8
--- NOTE | 2019-05-12 16:20 | OP ---
DATE OF PROCEDURE: 05/12/2019 PROCEDURE PERFORMED: Colonoscopy with polypectomy. INDICATION FOR PROCEDURE: Symptomatic anemia, possible gastrointestinal bleed/positive fecal occult blood test. DESCRIPTION OF PROCEDURE: After the risks and benefits of the procedure were explained to the patient including risks of bleeding, infection, perforation, reactions to anesthesia, aspiration, and/or pain, informed consent was obtained. The patient was then taken to the endoscopy suite, where deep sedation was administered via propofol and anesthesia support. Once adequate sedation was achieved, a digital rectal examination was performed followed by introduction of the standard colonoscope into the rectum and advanced to the terminal ileum without difficulty. The quality of the prep was good with some semi-solid/liquid stool seen within the right colon, but was amenable to irrigation and suctioning. The patient tolerated the procedure well with no immediate perioperative complications. Upon conclusion of the procedure, all equipment was removed from the patient and he was transferred to PACU in satisfactory condition. FINDINGS: Digital rectal exam: Small external hemorrhoids were seen on external examination. There was no evidence of active/recent bleeding. Colon findings: Normal-appearing mucosa was seen within the terminal ileum as well as at the ileocecal valve and appendiceal orifice. Normal-appearing mucosa was also seen within the cecum itself as well. A 3 to 4 mm polyp was seen in the ascending colon and completely removed with cold snare polypectomy. It was retrieved and placed in a specimen jar for evaluation. A 2 to 3 mm polyp was also seen in the proximal transverse colon and completely removed with cold snare polypectomy. It was retrieved and placed in a specimen jar for evaluation, otherwise normal-appearing mucosa was seen in the distal transverse, descending, sigmoid colon, and rectum. Medium-sized internal hemorrhoids were seen on rectal retroflexion. There was no evidence of old or recent blood within the entire colon. IMPRESSION: 1. A 3 to 4 mm ascending colon polyp, status post cold snare polypectomy. 2. A 2 to 3 mm transverse colon polyp, status post cold snare polypectomy. 3. Internal and external hemorrhoids (nonbleeding). 4. No etiology for the patient's anemia was seen during this examination. RECOMMENDATIONS: 1. We would continue to trend hemoglobin and hematocrit and transfuse as necessary to maintain a hemoglobin and hematocrit of 7/21. 2. Continue to monitor clinically for signs of active GI bleeding. 3. If the patient continues to have decrease in his hemoglobin and hematocrit or melenic type stools, we would consider a tagged red cell scan for further localization. If that is negative, may consider second-look upper endoscopy for further evaluation. 4. We would avoid any anticoagulation or NSAIDs for the time being. We will continue to follow. Please call with any questions. Job ID: [id number]
--- NOTE | 2019-05-13 09:07 | DIS ---
DATE OF ADMISSION: 05/06/2019 DATE OF DISCHARGE: 05/12/2019 DISCHARGE DISPOSITION: Home. PRIMARY DISCHARGE DIAGNOSES: 1. Hypotension due to volume depletion, resolved. 2. Acute kidney injury. 3. Acute gout. SECONDARY DISCHARGE DIAGNOSES: 1. Severe tricuspid regurgitation. 2. Rheumatoid arthritis. 3. Moderate aortic regurgitation. 4. Hypertension. 5. Chronic obstructive pulmonary disease. 6. Chronic stage C diastolic heart failure. 7. Chronic atrial fibrillation. 8. Chronic anticoagulation. 9. Coronary artery disease. 10. Anxiety and depression. 11. Chronic kidney disease, stage 3. 12. Normocytic normochromic anemia. PRIMARY PROCEDURE/OPERATION: The patient underwent colonoscopy by Dr. Ragland. RADIOLOGICAL INVESTIGATION: Chest x-ray, CT brain, abdomen and pelvis CT scan, and echocardiography. SIGNIFICANT LABORATORY DATA: Hemoglobin 8.6. Creatinine 1.26. Stool for guaiac positive. Blood culture negative. Urine culture negative. DISCHARGE MEDICATIONS: 1. Ventolin inhaler one puff inhalation q.4 hourly p.r.n. 2. Humira 40 mg subcu as directed. 3. Eliquis 2.5 mg b.i.d. 4. Aspirin 81 mg daily. 5. Vitamin D2 of 50,000 units weekly. 6. DuoNeb q.6 hourly p.r.n. 7. Zoloft 25 mg daily. 8. Symbicort 2 puffs inhalation b.i.d. 9. Demadex 20 mg daily. 10. Nitroglycerin as directed. 11. Coreg 3.125 mg b.i.d. 12. Colchicine 0.6 mg every other day. 13. Ferrous sulfate 325 mg p.o. daily. 14. Lisinopril 2.5 mg p.o. daily. 15. Protonix 40 mg p.o. daily. CONTRAINDICATION: None. CODE STATUS: Full code. INPATIENT INSURANCE SERVICE REPRESENTATIVE: [facility] was following because the patient was admitted in the CCU. Ship'S Officer Team was consulted to rule out GI bleed as his guaiac was positive. Cardiology Group was following. HOSPITAL COURSE: An 84-year-old male, who was admitted by Dr. Godinez on May 07, 2019. Please see his H and P for further details. On admission, he was having severe hypotension. He required ICU admission. He required Levophed drip as well as IV fluid to improve his blood pressure. We presumed blood pressure low from either sepsis versus volume depletion versus underlying GI bleed and finally after hospital workup, we found that his hypotension was most likely related with dehydration and volume depletion that has been improved. Levophed drip was discontinued as his stool for guaiac was positive and that is why we consulted manager bakery. This patient already had upper endoscopy recently, but Dr. Ragland did colonoscopy before discharge. While in the hospital, we also gave him iron infusion. For his congestive heart failure, we consulted Cardiology and echocardiography was obtained during this admission. We resumed all his previous medication. [facility] was following because the patient was in ICU initially, but subsequently they continued to follow up on telemetry floor. Overall, at this point, the patient is stable for discharge. We have given iron as per Dr. Ragland' recommendation before discharge. The patient is seen and examined at bedside today. Please see my progress note from today for further detail. Job ID: [id number]
== END 2019-05-12 18:20 | disposition home or self-care (01) | DRG 314 ==
LOC: ERS 16:01 → CCU 23:54 → 2NO 05-08 19:23
PROVIDERS: ADMIT Hospitalist; ATTEND Hospitalist
PROC: 0DBK8ZZ Excision of Ascending Colon, Via Natural or Artificial Opening Endoscopic (ICD-10-PCS; principal; 2019-05-12)
PROC: 0DBL8ZZ Excision of Transverse Colon, Via Natural or Artificial Opening Endoscopic (ICD-10-PCS; 2019-05-12)
DX: I95.9 Hypotension, unspecified (principal); G93.41 Metabolic encephalopathy; N17.9 Acute kidney failure, unspecified; I13.0 Hypertensive heart and chronic kidney disease with heart failure and stage 1 through stage 4 chronic kidney disease, or unspecified chronic kidney disease; I50.32 Chronic diastolic (congestive) heart failure; E86.9 Volume depletion, unspecified; E86.0 Dehydration; K21.9 Gastro-esophageal reflux disease without esophagitis; J45.909 Unspecified asthma, uncomplicated; M10.9 Gout, unspecified; M06.9 Rheumatoid arthritis, unspecified; I25.10 Atherosclerotic heart disease of native coronary artery without angina pectoris; D64.9 Anemia, unspecified; R73.9 Hyperglycemia, unspecified; J44.9 Chronic obstructive pulmonary disease, unspecified; N18.3 Chronic kidney disease, stage 3 (moderate); F41.9 Anxiety disorder, unspecified; F32.9 Major depressive disorder, single episode, unspecified; I25.5 Ischemic cardiomyopathy; G89.4 Chronic pain syndrome; I27.20 Pulmonary hypertension, unspecified; I08.2 Rheumatic disorders of both aortic and tricuspid valves; I48.2 Chronic atrial fibrillation; Z95.1 Presence of aortocoronary bypass graft; Z90.49 Acquired absence of other specified parts of digestive tract; Z88.0 Allergy status to penicillin; Z88.8 Allergy status to other drugs, medicaments and biological substances; Z79.01 Long term (current) use of anticoagulants
CPT/HCPCS: 36415; 36556; 70450; 71045; 74176; 80048; 80053; 81003; 82274; 83605; 83690; 83880; 84484; 84550; 85025; 86140; 87040; 87086; 88305; 93005; 93306; 94640; 96361; 96365; 96375; J2001; J2185; J2250; J2270; J2405; J2704; J2916; J2920; J2930; J3010; J3370; J3490; J7050; J7070; J7620

== ENCOUNTER 2019-06-02 12:38 | Outpatient (CLI) | payer MEDICARE ==
--- NOTE | 2019-06-02 14:20 | CT ---
CT CERVICAL SPINE WITHOUT CONTRAST: HISTORY: Radiculopathy. Longstanding neck pain. COMPARISON: 06/23/2018 FINDINGS: No craniocervical dissociation. Appropriate alignment of the lateral masses of C1 and C2. Multileve l facet hypertrophy. Cervical spine vertebral body height is maintained. No fracture. Unremarkable lung apices. Soft tissue neck structures are unremarkable. Limited evaluation of the contents of the central spinal canal and neural foramina due to technique. C2-C3: No high-grade central canal stenosis. Moderate bilateral foraminal narrowing due to uncovert ebral hypertrophy. There is also right facet hypertrophy. C3-C4: There is 2.5 mm of anterolisthesis of C3 upon C4. Broad-based disk osteophyte complex with a t least mild central canal stenosis. Moderate to severe bilateral foraminal narrowing due to uncover tebral and facet hypertrophy. C4-C5: Broad-based disk osteophyte complex with at least mild central canal stenosis. Moderate to s evere right and severe left foraminal narrowing due to bilateral uncovertebral hypertrophy, as well a s left facet hypertrophy. C5-C6: Broad-based disk osteophyte complex with a central component. Moderate central canal stenosi s. Moderate to severe right and severe left foraminal narrowing due to uncovertebral hypertrophy. C6-C7: Broad-based disk osteophyte complex abuts the thecal sac. There is moderate central canal st enosis. There is moderate to severe right and severe left foraminal narrowing due to uncovertebral h ypertrophy. C7-T1: Severe right and mild to moderate left foraminal narrowing due to uncovertebral hypertrophy. The central spinal canal is patent. IMPRESSION: Degenerative changes of the cervical spine. POS: OFF
== END 2019-06-02 12:39 | disposition home or self-care (01) ==
LOC: BICCT 12:38
PROVIDERS: ATTEND Anesthesiology Pain Medicine
DX: M47.22 Other spondylosis with radiculopathy, cervical region (principal)
CPT/HCPCS: 72125

== ENCOUNTER 2019-10-09 07:18 | Day surgery (SDC) | payer MEDICARE ==
[2019-10-08 11:13] VITALS: BMI 29.1
[2019-10-09 08:15] LABS: #Eosinphils 0.1 thou/uL (0.0-0.7); #Lymphocytes 1.2 thou/uL (1.20-3.40); #Monocytes 0.8 thou/uL (0.11-0.59); #Neutrophils 8.2 thou/uL (1.40-6.50); %Basophils 0.2 % (0.0-1.0); %Eosinophils 1.2 % (0.0-10.0); %Lymphocytes 11.4 % (21.0-51.0); %Monocytes 7.8 % (0.0-10.0); %Neutrophils 79.4 % (42.0-75.0); Hemoglobin 11.7 g/dL (14.0-18.0); Mean Corpuscular HGB CONC 31.7 g/dL (32.0-36.0); Mean Corpuscular Volume 88.3 fL (78.0-98.0); Mean Platelet Volume 8.3 fL (7.4-10.4); Platelet Count 250 thou/uL (130-400); RBC Distribution Width 18.4 % (11.5-14.5); Red Blood Cell (RBC) Count 4.18 mill/uL (4.70-6.10); White Blood Cell (WBC) Count 10.3 thou/uL (4.8-10.8)
[2019-10-09] MEDS ORDERED: Ondansetron PF 4 MG/2 ML Vial ONE (08:19)
[2019-10-09 08:23] LABS: INR-International Normal Ratio 1.2; PTT 25.1 SEC (22.9-36.1); Prothrombin Time 14.7 SEC (12.0-14.7)
[2019-10-09 08:29] LABS: Anion Gap 12 mmol/L (10-20); BUN (Urea Nitrogen) 44 mg/dL (8.4-25.7); Calc. Creatinine Clearance 40 mL/min (70-130); Calcium 9.3 mg/dL (7.8-10.44); Carbon Dioxide 32 mmol/L (23-31); Chloride 101 mmol/L (98-107); Estimated GFR-MDRD 42; Glucose 137 mg/dL (83-110); Potassium 3.7 mmol/L (3.5-5.1); Sodium 141 mmol/L (136-145)
[2019-10-09] MEDS ORDERED: PROPOFOL 200 MG/20 ML VIAL ONE (10:35)
[2019-10-09] MEDS ORDERED: Lidocaine 1% PF 5 ML VIAL ONE (10:35)
--- NOTE | 2019-10-12 09:39 | OP ---
DATE OF PROCEDURE: 10/09/2019 PROCEDURE PERFORMED: Elective cardioversion. PREOPERATIVE DIAGNOSIS: Atrial fibrillation. PROCEDURE IN DETAIL: The patient came to the preoperative area in a postabsorptive state. Informed consent was obtained. A time-out was called. The patient was sedated by member of the anesthesia staff. Once the patient was adequately sedated, a single 250 joule synchronized biphasic shock was delivered through anterior-posterior chest wall resulting in assumption of normal sinus rhythm. This was confirmed by checking his ICD. The patient had confirmed that he did not miss any dose of anticoagulant therapy. The patient tolerated the procedure well and was awoken from anesthetic without any difficulty. POSTOPERATIVE DIAGNOSIS: Atrial fibrillation. CONCLUSIONS: 1. Persistent atrial fibrillation. 2. Successful cardioversion for atrial fibrillation. RECOMMENDATIONS: The patient will be at bed rest. Once awake, he will be able to discharge. He will continue anticoagulant therapy and follow up with Dr. Eastman. Job ID: [id number]
== END 2019-10-09 10:50 | disposition home or self-care (01) ==
LOC: SDC 07:18
PROVIDERS: ATTEND Specialist
PROC: 5A2204Z Restoration of Cardiac Rhythm, Single (ICD-10-PCS; principal; 2019-10-09)
DX: I48.11 Longstanding persistent atrial fibrillation (principal); N18.9 Chronic kidney disease, unspecified; I50.22 Chronic systolic (congestive) heart failure; I25.10 Atherosclerotic heart disease of native coronary artery without angina pectoris; M06.9 Rheumatoid arthritis, unspecified; I25.5 Ischemic cardiomyopathy; Z79.01 Long term (current) use of anticoagulants; Z79.82 Long term (current) use of aspirin; Z79.899 Other long term (current) drug therapy; Z88.0 Allergy status to penicillin; Z88.8 Allergy status to other drugs, medicaments and biological substances; Z91.041 Radiographic dye allergy status; Z95.1 Presence of aortocoronary bypass graft
CPT/HCPCS: 80048; 85025; 85610; 85730; 92960; J2001; J2405; J2704

== ENCOUNTER 2020-01-26 13:11 | Inpatient (IN) | payer MEDICARE, OTHER ==
[~2020-01-26 13:11] MED LIST changes: -Glycopyrrolate 0.2 MG/ML 5 ML SYRINGE ONE; +Heparin 1,000 UNITS/ML VIAL ONE; -Lidocaine 1% PF 5 ML VIAL ONE; -Ondansetron PF 4 MG/2 ML Vial ONE; -PHENYLEPHRINE-NS 100 MCG/ML 10 ML SYRINGE ONE; -PROPOFOL 200 MG/20 ML VIAL ONE; -ePHEDrine/0.9% NaCl/PF SYRINGE 50 mg/10 ml ONE
[2020-01-26] MEDS ORDERED: Azithromycin 500 MG VIAL ONE (13:32)
[2020-01-26] MEDS ORDERED: Acetaminophen 500 MG TAB ONE (13:32)
[2020-01-26] MEDS ORDERED: cefTRIAXone\\ROCEPHIN 2 GM VIAL ONE (13:32)
[2020-01-26 13:46] LABS: Hemoglobin 10.9 g/dL (14.0-18.0); Mean Corpuscular HGB CONC 31.5 g/dL (32.0-36.0); Mean Corpuscular Volume 95.2 fL (78.0-98.0); Mean Platelet Volume 8.7 fL (7.4-10.4); Platelet Count 473 thou/uL (130-400); RBC Distribution Width 17.2 % (11.5-14.5); Red Blood Cell (RBC) Count 3.64 mill/uL (4.70-6.10); White Blood Cell (WBC) Count 14.5 thou/uL (4.8-10.8)
--- NOTE | 2020-01-26 14:05 | RAD ---
Exam: Chest one view HISTORY:Dyspnea. Hallucinations. Comparison: 06/25/2019 FINDINGS: Incidentals: Stable sternotomy wires and left-sided transvenous fibrillator. Stable hyperde nsities project over the thoracic vertebra. Cardiac silhouette:Cardiomegaly. Aorta: Atherosclerosis. Pulmonary vessels: Normal Costophrenic angles: Blunting of the left costophrenic angle with stable elevation left hemidiaphragm . Blunting is felt to be due to atelectasis or scar. LUNGS: Chronic lung parenchymal changes. No masses or consolidation. Pneumothorax: None Osseous abnormalities: No acute abnormality. IMPRESSION: 1. Atherosclerosis. 2. Cardiomegaly. No evidence of congestive heart failure. 3. Chronic lung parenchymal changes.
[2020-01-26 14:06] LABS: Anisocytosis SLIGHT = 6-15 cells (100X) (0-5/hpf); Band 3 % (5-11); Lymphocytes 8 % (21-51); MDiff Complete? YES; Monocytes 1 % (0-10); Neutrophil 87 % (42-75); Ovalocytes SLIGHT = 2-5 cells (100X) (0-1/hpf); Platelet Morphology Comment Appears Increased; Polychromasia SLIGHT = 2-3 cells (100X) (0-2/hpf)
[2020-01-26 14:07] LABS: Bilirubin Negative (Negative); Blood, Urine Negative (Negative); Clarity Clear (Clear); Glucose, Urine (Dipstick) Normal (Negative); Leukocyte Negative Leu/uL (Negative); Nitrite Negative (Negative); Protein, Urine (Dipstick) Negative (Neg-Trace)
[2020-01-26 14:27] LABS: ALT (SGPT) 31 U/L (8-55); AST (SGOT) 40 U/L (5-34); Albumin 3.4 g/dL (3.4-4.8); Alkaline Phosphatase 86 U/L (40-110); Anion Gap 17 mmol/L (10-20); BUN (Urea Nitrogen) 43 mg/dL (8.4-25.7); Bilirubin, Total 1.1 mg/dL (0.2-1.2); Calc. Creatinine Clearance 0 mL/min (70-130); Carbon Dioxide 31 mmol/L (23-31); Chloride 94 mmol/L (98-107); Estimated GFR-MDRD 43; Globulin 4.1 g/dL (2.4-3.5); Glucose 188 mg/dL (83-110); Potassium 3.6 mmol/L (3.5-5.1); Protein, Total 7.5 g/dL (5.8-8.1); Sodium 138 mmol/L (136-145)
[2020-01-26] MEDS ORDERED: Norepinephrine 8 MG/0.9% NS 250 ML ONE (14:49)
[2020-01-26] MEDS ORDERED: Acetaminophen 325 MG TAB PO PRN (14:55)
[2020-01-26] MEDS ORDERED: Ondansetron PF 4 MG/2 ML Vial IVP PRN (14:55)
[2020-01-26] MEDS ORDERED: diphenhydrAMINE 50 MG/ML VIAL IVP PRN (14:59)
[2020-01-26] MEDS ORDERED: DOBUTamine 500 mg/250 ml 250 ML ONE (15:57)
[2020-01-26 16:42] LABS: Lactic Acid 0.7 mmol/L (0.5-2.2)
--- NOTE | 2020-01-26 16:47 | RAD ---
FRONTAL RADIOGRAPH CHEST: 01/26/20 at 4:29 p.m. COMPARISON: 01/26/20 at 1:53 p.m. HISTORY: Hallucinations and decreased mobility. FINDINGS: There has been interval placement of a right sided vascular catheter, distal tip overlying the region of the cavoatrial junction. Midline sternotomy wires are noted. Heart and mediastinal contours are s table. There is stable elevation of the left hemidiaphragm and there is stable pulmonary vascular con gestion. Stable multilead left sided transvenous pacing device. No pneumothorax. IMPRESSION: Interval placement of a right side vascular catheter - no significant interval change otherwise. POS: [facility]
--- NOTE | 2020-01-26 16:48 | HP ---
CHIEF COMPLAINT: Weakness, altered mentation and cough, respiratory distress, hypoxia, sepsis with pneumonia. HISTORY OF PRESENT ILLNESS: An 84-year-old male, living at home, with known history of coronary artery disease, CHF, rheumatoid arthritis and gout, both pacer and ICD placement, presenting with altered mentation, weakness, hypoxia, tachycardia as well as hypotension. A chest x-ray showed a hazy infiltrate in the left lower lobe. White count of 15,000 with 87% PMN. Lactic acid of 2.4. Sepsis protocol initiated. Blood cultures have been scheduled. Sepsis initiated in the ER. Flu swab done , COVID-19 screening sent out. History obtained from daughter, Maude, . She provided most of the information. The patient lives with his girlfriend and the daughter visits him few times a week. He has some volume overload issues frequently and admission for the same roughly a month ago. He is known to Dr. Kimble. In the ER, they are placing the central line and the patient will be moved to ICU. REVIEW OF SYSTEMS: Not obtainable. ALLERGIES: HE IS ALLERGIC TO PENICILLIN. PAST MEDICAL HISTORY: 1. History of coronary artery disease, CABG, 4-vessel disease, roughly 5 years ago. 2. History of CHF with diastolic dysfunction. 3. Atrial fibrillation and multiple ablations and cardioversions. 4. Chronic back pain. 5. COPD, asthma, hypertension, depression, anxiety, and rheumatoid arthritis, on Humira shot every two weeks. 6. Pacemaker with AICD, biventricular pacer. 7. Gout. SURGICAL HISTORY: Appendectomy, cholecystectomy. MEDICATIONS: 1. Aspirin 81 mg daily. 2. Coreg 3.125. 3. Torsemide 20 mg daily. 4. Metolazone 5 mg on Saturday and . 5. K-Dur 20 mEq daily. 6. Lisinopril 2.5 mg daily. 7. Humira 40 mg subcu every two weeks. 8. Eliquis 2.5 mg twice daily. 9. Xanax 0.25 mg at bedtime. 10. Sertraline 25 mg daily. 11. Ivana. 12. Dexilant. SOCIAL HISTORY: He lives alone with his girlfriend. His daughter, Maude visits him frequently. Ex-smoker, quit in 1984. He lives with Ms. Hubbard. He ambulates with a walker. PHYSICAL EXAMINATION: He is currently hypotensive. He came with a temperature of 104. I was not able to see him completely as they are placing a central line. LABORATORY DATA: Significant for white count of 14.5, hemoglobin 10.9, platelets 473. His creatinine is 1.55. Lactic acid 2.4. Blood glucose 188. His chest x-ray showed left lower lobe haziness, cardiomegaly, no evidence of congestive heart failure, chronic lung parenchymal changes as well as left lower lobe hazy infiltrate. IMPRESSION AND PLAN: This is an 84-year-old male with several comorbidities, presenting with the following; 1. Sepsis secondary to pneumonia. 2. Hypoxia. 3. Hypovolemic shock requiring pressor. 4. Acute respiratory failure secondary to pneumonia, hypoxic respiratory failure. 5. History of pacer and ICD. 6. History of coronary artery disease, 4-vessel coronary artery bypass grafting. The patient will be going to the ICU soon, he will be on pressors, and we will follow the clinical progression. I talked to Dr. Kimble and he will see him likely today. We will continue with ceftriaxone and Zithromax. Follow the cultures. Other comorbidities will be managed as the clinical progression dictates. We will hold his Demadex, Coreg, Xanax. Continue with aspirin, Eliquis, sertraline. Currently, he is a full code. Pending COVID-19 rule out. Job ID: [id number] MTDD
[2020-01-26] MEDS: guaiFENesin 200 MG TAB PO SCH ×2 (19:45→22:08)
[2020-01-26 19:46] LABS: Actual Bicarbonate (HCO3a) 31.6 mEq/L (22-28); Base Excess (BEa) 3.2 mEq/L (-2.0 to +3.0); Carboxyhemoglobin (COHb) 1.3 gm% (0.0-3.0); O2 Tension (PaO2) 83.2 mmHg (> 60.0); Potassium - ABG Lab 2.71 mmol/L (3.70-5.30); pH, Arterial 7.26 (7.35-7.45)
[2020-01-26 19:47] LABS: CO2 Tension 72.6 mmHg (35.0-45.0); Puncture Site RR
[2020-01-26] MEDS ORDERED: Sodium Bicarb 50 MEQ/50 ML Abboject 8.4% SYRINGE IVP SCH (20:00)
[2020-01-26] MEDS ORDERED: Propofol 1,000 MG/100 ML VIAL IV ONE (20:42)
[2020-01-26] MEDS ORDERED: Norepinephrine 8 MG/0.9% NS 250 ML IVPB SCH (20:54)
[2020-01-26] MEDS ORDERED: Ventilator Sedation Protocol 1 EACH FS ONE (20:57)
[2020-01-26] MEDS ORDERED: Vasopressin 40 UNIT, Admixture Fee 1 EACH in Sodium Chloride 0.9% 100 ML IV SCH (21:00)
[2020-01-26] MEDS ORDERED: Morphine 2 MG/ML SYRINGE SLOW IVP PRN (21:01)
[2020-01-26] MEDS ORDERED: fentaNYL Citrate/PF 2,000 MCG in Sodium Chloride 0.9% 60 ML IV SCH (21:01)
[2020-01-26] MEDS ORDERED: DISCONTINUE PREVIOUS NARCOTIC PAIN MEDICATIONS AND BENZODIAZEPINES FS SCH (21:01)
[2020-01-26] MEDS ORDERED: Propofol BOLUS 1,000 MG/100 ML VIAL IV PRN (21:01)
[2020-01-26] MEDS ORDERED: Fentanyl BOLUS 250 ML IVPB PRN (21:01)
--- NOTE | 2020-01-26 21:05 | CON ---
DATE OF CONSULTATION: 01/26/2020 HISTORY OF PRESENT ILLNESS: Mr. Rogers is an 84-year-old male with multiple medical problems. Apparently, the family reports a decline in his status for several days. He went to his automotive fuel injection servicer, who was transferred here and subsequently admitted to the ICU. I was consulted after blood gas was done showing a respiratory acidosis, which was partially compensated. We elected to intubate him. He is not febrile here. I am told he was febrile in the Emergency Department. He has no travel history. None of his family members have been sick apparently. Reviewing nursing notes, I do not see any documentation of him being febrile in the emergency room. In any event, he is poorly responsive, but is cooperative. Chest radiograph did not show any infiltrates. He had some mild atelectasis in his left base. He has known COPD, was seen by my associate, Dr. Melton in last admission in fall, when he presented with COPD exacerbation. He presented to the certified nurses' aide at that time for a checkup and was found to be hypotensive, so he came to the hospital. PAST MEDICAL HISTORY: Remarkable for: 1. COPD. 2. History of coronary artery disease. 3. History of GI bleeding. 4. History of hypertension. 5. History of myocardial infarction. 6. History of coronary artery bypass grafting. 7. Peptic ulcer disease identified on an endoscopy. 8. History of defibrillator placement. 9. History of an appendectomy. 10. History of cholecystectomy. FAMILY HISTORY: Negative for lung disease in early age. SOCIAL HISTORY: He is not a smoker, not a daily drinker. ALLERGIES: HE REPORTS CONTRAST AND PENICILLIN ALLERGIES. PHYSICAL EXAMINATION: GENERAL: He is poorly responsive. VITAL SIGNS: Blood pressure is in the 90s, heart rates at 80, and respiratory rates in the 20s. He actually appears comfortable. HEENT: Pupils are equal. Sclerae are anicteric. Extraocular movements are full. NECK: Supple. No lymphadenopathy. LUNGS: Clear. HEART: Regular rhythm. ABDOMEN: Soft. EXTREMITIES: Without clubbing, cyanosis, or edema. LABORATORY DATA: White count is 14.5 at 1 o'clock today, hemoglobin 10.9, platelets 473,000, 87 segs, 8% lymphocyte, and no bands. Sodium 130, potassium 3.6, chloride 94, bicarb 31, BUN 43, and creatinine 1.55. Creatinine 2 weeks ago is 1.45. A pH of 7.26, CO2 of 72, and pO2 of 83. IMPRESSION AND PLAN: 1. Chronic obstructive pulmonary disease exacerbation, chronic hypoxic respiratory failure. 2. History of cardiomyopathy. 3. History of defibrillator. 4. Paced rhythm. 5. Relative hypotension. I recommended intubation. This has been done successfully. Critical care time 40 min excluding procedure Job ID: [id number] MTDD
[2020-01-26] MEDS: methylPREDNISolone Sod Succ 40 MG VIAL IVP SCH (22:08)
[2020-01-26] MEDS: Albumin 25% 25 GM/100 ML BOT IVPB SCH (22:08)
[2020-01-26] MEDS: Apixaban 2.5 MG TAB PO SCH (22:09)
[2020-01-27] MEDS: guaiFENesin 200 MG TAB PO SCH ×6 (01:47→21:09)
[2020-01-27] MEDS: Propofol 1,000 MG/100 ML VIAL IV PRN ×3 (03:26→21:16)
[2020-01-27] MEDS: DOBUTamine 500 mg/250 ml 500 MG in Premix Bag 1 BAG IVPB SCH ×3 (03:26→21:08)
[2020-01-27 04:12] LABS: Band 13 % (5-11); Hemoglobin 9.4 g/dL (14.0-18.0); Lactic Acid 1.1 mmol/L (0.5-2.2); Lymphocytes 2 % (21-51); MDiff Complete? YES; Mean Corpuscular Hemoglobin 29.1 pg (27.0-31.0); Mean Platelet Volume 8.1 fL (7.4-10.4); Monocytes 1 % (0-10); Neutrophil 84 % (42-75); Platelet Count 449 thou/uL (130-400); Platelet Morphology Comment Appears Increased; RBC Distribution Width 16.7 % (11.5-14.5); Red Blood Cell (RBC) Count 3.22 mill/uL (4.70-6.10); White Blood Cell (WBC) Count 12.6 thou/uL (4.8-10.8)
[2020-01-27 04:18] LABS: ALT (SGPT) 24 U/L (8-55); AST (SGOT) 23 U/L (5-34); Albumin 3.3 g/dL (3.4-4.8); Alkaline Phosphatase 71 U/L (40-110); Anion Gap 17 mmol/L (10-20); BUN (Urea Nitrogen) 34 mg/dL (8.4-25.7); Bilirubin, Total 1.1 mg/dL (0.2-1.2); Calc. Creatinine Clearance 49 mL/min (70-130); Calcium 9.2 mg/dL (7.8-10.44); Carbon Dioxide 29 mmol/L (23-31); Chloride 99 mmol/L (98-107); Estimated GFR-MDRD 54; Globulin 3.1 g/dL (2.4-3.5); Glucose 182 mg/dL (83-110); Magnesium 1.7 mg/dL (1.6-2.6); Protein, Total 6.4 g/dL (5.8-8.1); Sodium 142 mmol/L (136-145)
[2020-01-27 04:22] LABS: Potassium 2.6 mmol/L (3.5-5.1)
[2020-01-27] MEDS ORDERED: CCU Electrolyte Replacement 1 EACH FS ONE (04:54)
[2020-01-27] MEDS ORDERED: Potassium Phosphate 15 MMOL in Sodium Chloride 0.9% 250 ML 250 ML IV PRN (05:08)
[2020-01-27] MEDS ORDERED: CCU ELECTROLYTE REPLACEMENT PROTOCOL FS PRN (05:08)
[2020-01-27] MEDS ORDERED: Potassium Phosphate 12 MMOL in Sodium Chloride 0.9% 250 ML 250 ML IV PRN (05:08)
[2020-01-27] MEDS ORDERED: Potassium Chloride 20 MEQ TAB PO PRN (05:08)
[2020-01-27] MEDS ORDERED: Potassium Chloride 40 MEQ in Sodium Chloride 0.9% 250 ML 250 ML IVPB PRN (05:08)
[2020-01-27] MEDS ORDERED: Magnesium 2 GM/50 ML 2 GM in Premix Bag 1 BAG IVPB PRN (05:08)
[2020-01-27] MEDS ORDERED: Magnesium Oxide 400 MG TAB PO PRN ×2 (05:08)
[2020-01-27] MEDS ORDERED: PHOS-NAK 1 PKT PACK PO PRN ×2 (05:08)
[2020-01-27] MEDS ORDERED: Potassium Phosphate 9 MMOL in Sodium Chloride 0.9% 100 ML IVPB PRN (05:08)
[2020-01-27] MEDS: Potassium Chloride 40 MEQ in Premix Bag 1 BAG IVPB PRN (06:14)
[2020-01-27 06:32] LABS: Strep pneumo Urine Ag NEGATIVE (NEGATIVE)
--- NOTE | 2020-01-27 07:09 | CON ---
DATE OF CONSULTATION: 01/27/2020 REASON FOR CONSULT: Management of heart failure patient in the setting of pneumonia. HISTORY OF PRESENT ILLNESS: Mr. Donny Rogers, 84-year-old gentleman with recovering heart failure with reduced ejection fraction with the latest EF of 50%, was admitted for pneumonia. He was seen in heart failure clinic about 12 days ago. At that time, he had hypothyroidism, where he refused to take his thyroid medication for 6+ weeks. It does exacerbate the heart failure. He was given IV diuretics at clinic and increased diuresis at home. He did well for a little while. His daughter said that he had increased exercise tolerance and was doing well. Then, about 7 or 8 days ago, Mr. Rogers started to develop symptoms. He began to feel generally ill. He complained of diffuse body aches, likely myalgia. He had return of cough and some shortness of breath. Due to Mr. Rogers's long history of having heart failure, himself and family did not take the shortness of breath and cough that seriously. He then further deteriorated with fatigue and stopped exercising. Three days ago, his daughter observed that he was becoming confused. Also had lost appetite, would not eat. Things seemed to be progressively worsen with a combination of ill feeling, fatigue and cough. He was taken to his Rheumatology appointment. There, he looked very ill and ashen. Thus, he was transferred to ER at [facility]. Review of home records showed that he actually had lost weight. Before the ER, his weight decreased from 185 pounds down to 180 pounds. Thus, the shortness of breath or cough is not likely due to heart failure, rather infectious process. At the ER, the patient presented with a fever of 101.4 by rectal. He had a heart rate of 83 and then dropped to 70. His presenting blood pressure was 87/68 and it dropped down to 74/56 and then down to 68/38. It is unclear on amount of IV fluid that he received any. However, he did receive norepinephrine at 10 mcg/ minute. His blood pressure then increased to between 80 and 90 and diastolic blood pressure about 50s. Dobutamine 5 mcg/kg/minute IV GTT was added and that increased the systolic blood pressure up to 125 with diastolic pressure in the mid 60s. He was given azithromycin and ceftriaxone in the ER. Blood culture and urine culture were done. He was then transferred to C5 of the CCU. An ABG at CCU found that he has a pH of 7.26, bicarbonate of 72.6, and he is not mentating well, very lethargic, thus he was intubated for near respiratory arrest with very poor ventilation. PAST MEDICAL HISTORY: Significant for; 1. COPD. 2. Coronary artery disease, post bypass. 3. Heart failure with reduced ejection fraction that was recovering. EF has increased to 50% as of June 2019. 4. Rheumatoid arthritis. PAST SURGICAL HISTORY: Includes; 1. Appendectomy. 2. Coronary artery bypass with four vessels. 3. Cholecystectomy. 4. He has [employer]-D implanted. FAMILY HISTORY: Being at age 84, his family history is noncontributory. SOCIAL HISTORY: He is a former smoker, quit in 1985. He denies using alcohol. He also denies using illicit drugs. He lives with his ; however, his daughter comes by and checks on him several times a week. ALLERGIES: IODINE CAUSES EDEMA AND HIVES. PENICILLIN CAUSES EDEMA AND HIVES. HOME MEDICATIONS: 1. Carvedilol 12.5 mg b.i.d. 2. Entresto 24/26 mg combination, but half tablets every 12 hours. 3. Eliquis 2.5 mg b.i.d. 4. Potassium chloride 20 mEq daily. 5. Colchicine 0.6 mg daily. 6. Allopurinol 200 mg daily. 7. Tramadol 50 mg daily. 8. Aspirin 81 mg daily. 9. Orencia 200 mg once a month. 10. Amiodarone 200 mg daily. 11. Torsemide 20 mg daily, but 40 mg on Saturday, Saturday, and Fridays. 12. Vitamin D3 or cholecalciferol 125 mcg tablet twice a day. 13. Alprazolam, which is Xanax, 0.25 mg at bedtime. 14. Dexilant 30 mg daily. 15. Albuterol 2 puffs as needed. 16. Symbicort 2 puffs twice a day p.r.n. 17. Levothyroxine starting at 25 mcg tablet daily. REVIEW OF SYSTEMS: Review of systems was not done because the patient was intubated and sedated. PHYSICAL EXAMINATION: VITAL SIGNS: At the time he was intubated, heart rate about 88, is A-sensed V-paced, blood pressure about 138/70, his oxygen saturation 98% on the ventilator. GENERAL: He is sedated; however, he can be aroused. HEENT: He cannot spontaneously open his eye, presents very sleepy, difficult to arouse. As far as I can tell, is EOMI. Oropharynx, he has ET tube in place. NECK: JVP is difficult to assess at this position. PULMONARY: He has coarse and decreased breath sounds. CARDIAC: Regular rate and rhythm. It is paced. He has 2/6 diastolic murmur at the right sternal border. This is a holosystolic murmur at the apex with radiation to the left axilla. ABDOMEN: Distended, soft, nontender. He always has large distention. This is where he collects edema, but it is not more than usual, is a little bit less than usual. EXTREMITIES: Lower extremity, there is minimal or no edema. There are good dorsalis pedis pulses. LABORATORY VALUES: White cell count 14.5, hemoglobin 10.9, hematocrit 34.7, platelet count 473. He has lymphopenia of only 8% manually. His chemistry showed sodium 138, potassium 3.6, bicarb 31, BUN 43, creatinine 1.55. At his presentation to the ER, he had elevated lactic acid at 2.4, but after dobutamine and norepinephrine combination, the lactic acid dropped down to 0.7. He has mildly elevated AST at 40. Chest x-ray was reviewed. There is cardiomegaly, but there is no pulmonary edema. However, there is some possible infiltrate in the left base. His [employer]-D device was also interrogated. It is Helicomma Quad [employer]-[id number]. Set in the DDDR mode with lower rate limit of 70. This was subsequently increased to 80 to give him a faster heart rate in this septic setting. There is no ventricular tachycardia event. There is no ventricular fibrillation event. He is mostly A-paced V-paced and some A-sensed V-paced. There are no concerning arrhythmias. Consequently, there is no arrhythmias that can cause this. ASSESSMENT: 84-year-old gentleman likely incurred pneumonia of unclear source. Fever, cough, leukocytosis, needing oxygen, all support this premise. It is not heart failure. He had decreased weight. There is no pulmonary edema on a chest x-ray and he also had relatively normal renal function, so consequently, he was not suffering for cardiac renal syndrome. In the setting of COVID-19 in the community, lymphopenia, and slight elevation in AST, and his presentation, this has a high risk of being COVID-19. However, community-acquired pneumonia is also possible. He has been well covered with ceftriaxone and azithromycin for community-acquired pneumonia. Also, his ejection fraction was 50%. He has significant diastolic dysfunction with history of heart failure with reduced ejection fraction, under this insult, his heart probably suffered with a bout of sepsis, but consequently, he will need significant cardiac support. Please see the following for recommendations. RECOMMENDATIONS: 1. Dobutamine at 5 mcg/kg per minute IV GTT, may try to titrate this up to 15 mcg/kg per minute, this will be likely the angela for his cardiac output. 2. Norepinephrine 10 mcg/minute. This can be titrated up to 20 mcg/minute. This is supportive of the dobutamine. If his pressures are adequate, this is the first one to be decreased. 3. If dobutamine and norepinephrine not enough, then please add on vasopressin at 0.04 units/minute. 4. Please use combination of dobutamine, norepinephrine and also vasopressors as needed to maintain a mean arterial pressure at 70 mmHg or better. 5. Continue with amiodarone 200 mg via tube. If it is not possible, run at 0.5 mg/minute IV GTT. 6. Continue Eliquis at 2.5 mg via tube for atrial fibrillation, but if bleeding should becomes a problem, this could be stopped temporarily. Hold Entresto, carvedilol and diuretics for now. Provide albumin 25 g IV q.12 hours until stable and being able to titrate off most of the inotropic support with the exception of dobutamine. He can leave that on. 7. When the patient is improved, one can titrate off norepinephrine and make the switch from dobutamine to milrinone. This would help his cardiac output and drop his pulmonary pressure. However, milrinone must not be used in the setting of sepsis. It can be used after recovering from sepsis and there is a cardiac output and pulmonary hypertension issues. 8. There is no need for diuretics for now. We will need to battery test engineer day-by-day on his fluid status. 9. Please keep potassium at 4 or better and also magnesium at 2 or better. This will keep his arrhythmia at bay. Once, the patient is better with titrating off his inotropics support, then, his heart failure medication can be slowly restarted. If he had to restart, start with carvedilol first. Entresto will have to wait. Entresto can cause vasodilation, which will be dilatory in this setting. It has been a pleasure taking care of Mr. Donny Rogers. If you have any questions, please give me a call. Job ID: [id number] [facility]Aye
[2020-01-27] MEDS: Albumin 25% 25 GM/100 ML BOT IVPB SCH ×2 (08:24→21:08)
[2020-01-27] MEDS: Apixaban 2.5 MG TAB PO SCH ×2 (08:26→21:09)
[2020-01-27] MEDS: methylPREDNISolone Sod Succ 40 MG VIAL IVP SCH ×2 (08:27→21:09)
[2020-01-27] MEDS: Aspirin Chewable 81 MG TAB PO SCH (08:27)
[2020-01-27] MEDS: Pantoprazole 40 MG VIAL IVP SCH (08:29)
--- NOTE | 2020-01-27 08:44 | OP ---
DATE OF PROCEDURE: 01/26/2020 PROCEDURE: Fiberoptic intubation. DESCRIPTION OF PROCEDURE: The patient's throat was sprayed with Cetacaine. Bite block was placed in his mouth. A disposable bronchoscope was brought down to the level of his vocal cords and passed through his cords without difficulty. The endotracheal tube was advanced and secured above the gris. He was connected to mechanical ventilation. He will be sedated per sedation protocol. CRITICAL CARE TIME: 45 minutes independent of the procedure performed. Job ID: [id number]
[2020-01-27] MEDS ORDERED: Famotidine/PF 20 mg/2ml Vial SLOW IVP SCH (09:00)
--- NOTE | 2020-01-27 09:21 | RAD ---
SINGLE VIEW CHEST: Date: 01/27/2020 COMPARISON: 01/26/2020. HISTORY: Ventilated patient with respiratory failure. FINDINGS: Single view of the chest shows an enlarged but stable cardiomediastinal silhouette. A central venous catheter is unchanged in position. Endotracheal tube is seen with its tip in good position above the gris. The pacemaker is unchanged in position. The patient is status post sternotomy. There is a sma ll left pleural effusion with adjacent atelectasis. IMPRESSION: Small left pleural effusion with adjacent atelectasis. POS: [facility]
[2020-01-27] MEDS: cefTRIAXone\\ROCEPHIN 1 GM in Sodium Chloride 0.9% 100 ML IVPB SCH (12:28)
[2020-01-27] MEDS ORDERED: Azithromycin 500 MG in Sodium Chloride 0.9% 250 ML 250 ML IVPB SCH (14:00)
--- NOTE | 2020-01-27 14:25 | PRG ---
DATE OF SERVICE: 01/27/2020 OBJECTIVE: VITAL SIGNS: Mr. Rogers's heart rate in the 80s, blood pressure 153/ 75, respiratory rate was in the teens, oximetry is 100%. LUNGS: Clear. HEART: Regular rhythm. ABDOMEN: Soft. EXTREMITIES: Without edema. LABORATORY DATA: White count 12.6, hemoglobin 9.4, platelets 449. Sodium 142, potassium 2.6, chloride 99, bicarb 29, BUN 34, creatinine 1.27. His COVID screen was negative. IMPRESSION: Respiratory failure secondary to chronic obstructive pulmonary disease exacerbation, requiring emergent intubation last night. PLAN: 1. Continue current critical care management. 2. Continue steroids, nebulized treatments, and antimicrobial therapy. Probably not weanable for 24 to 48 hours. 3. Blood gas shows pH 7.26, CO2 72, and pO2 83 last night. For some reason, blood gas was not done this morning. Critical care time 35 min. Job ID: [id number] [facility]
--- NOTE | 2020-01-27 17:03 | PDOC.HOSPP ---
- Subjective Encounter Date: 01/27/20 Encounter Time: 12:20 Subjective: on vent, trauma related hematuria -janet; d/w RN to irrigate w.. NS. if not resolved, then will look further. off levophed COVID-i19 neg. - Objective Vital Signs & Weight: Vital Signs (12 hours) Temp Pulse Resp Pulse Ox 01/27/20 16:00 16 01/27/20 14:00 16 01/27/20 12:00 98.6 F 01/27/20 10:27 81 01/27/20 10:00 16 01/27/20 08:40 83 01/27/20 08:00 16 100 01/27/20 07:00 98.9 F 01/27/20 06:00 16 Weight Admit Weight 172 lb Weight 172 lb 13.478 oz Most Recent Monitor Data Heart Rate from ECG 80 NIBP 137/70 NIBP BP-Mean 92 Respiration from ECG 16 SpO2 100 I&O: 01/26/20 01/27/20 01/28/20 06:59 06:59 06:59 Intake Total 629 100 Output Total 1950 1090 Balance -1321 -990 Result Diagrams: 01/27/20 03:45 01/27/20 03:45 Hospitalist ROS - Medication Medications: Active Medications Generic Name Dose Route Start Last Admin Trade Name Jonnieq PRN Reason Stop Dose Admin Albumin Human 25 gm 01/26/20 21:00 01/27/20 08:24 Albumin 25% IVPB 01/27/20 21:01 25 gm Q12HR FUNMI Administration Apixaban 2.5 mg 01/26/20 21:00 01/27/20 08:26 Eliquis PO 2.5 mg BID FUNMI Administration Aspirin 81 mg 01/27/20 09:00 01/27/20 08:27 Aspirin Chewable PO 81 mg DAILY FUNMI Administration Guaifenesin 200 mg 01/26/20 17:00 01/27/20 12:28 Organ-I Nr PO 01/28/20 17:01 200 mg Q4HR FUNMI Administration Ceftriaxone Sodium 1 gm/ 100 mls @ 200 mls/hr 01/27/20 13:00 01/27/20 12:28 Sodium Chloride IVPB 100 mls 1300 FUNMI Administration Dobutamine HCl/Dextrose 500 mg 250 mls @ 0 mls/hr 01/26/20 21:00 01/27/20 03: 26 / Device IVPB 250 mls INF FUNMI Administration Protocol As Directed Levofloxacin 500 mg/ Device 100 mls @ 100 mls/hr 01/26/20 21:00 01/26/20 22: 45 IVPB 100 mls Q24HR FUNMI Administration Potassium Chloride 40 meq/ 100 mls @ 50 mls/hr 01/27/20 05:08 01/27/20 06:14 Device IVPB 100 mls ASDIR PRN Administration FOR SERUM K+ 2.5 - 3.5 Magnesium Sulfate 1 gm/ Sodium 102 mls @ 102 mls/hr 01/27/20 05:08 01/27/20 09:02 Chloride IV 102 mls PRN PRN Administration MAG LEVEL 1.4 - 2.0 Methylprednisolone Sodium Succinate 40 mg 01/26/20 21:00 01/27/20 08:27 Solu-Medrol IVP 40 mg Q12HR FUNMI Administration Pantoprazole Sodium 40 mg 01/27/20 09:00 01/27/20 08:29 Protonix IVP 40 mg DAILY FUNMI Administration Potassium Chloride 20 meq 01/27/20 09:00 01/27/20 08:27 Klor-Con PO 20 meq DAILY FUNMI Administration Propofol 1,000 mg 01/26/20 21:01 01/27/20 12:27 Diprivan IV 02/25/20 21:01 1,000 mg INF PRN Administration TO ACHIEVE GOAL RASS Protocol Sertraline HCl 25 mg 01/27/20 09:00 01/27/20 08:27 Zoloft PO 25 mg DAILY FUNMI Administration - Exam General - other findings: vent,s edated. ENT: normocephalic atraumatic Neck: supple Heart: RRR Respiratory: normal chest expansion, rales Gastrointestinal: soft, normal bowel sounds Neurological: cranial nerve grossly intact, no focal deficits Hosp A/P - Plan Sepsis 2/2 PNA Acute on chronic Hypoxic resp failure Acute res failure requiring intubation COPD exacerbation Hypovolumic shock cannot be ruled out, as required pressor -- off levophed --CTX+LQ and IV steroid+ BDs. -flu neg - COVID-19 neg - ucux and bl griselda - no growth x 24hrs. - CAD ischemic Cardiomyopathy Diastrolic CHF without exacerbation - clinical picutre of sepsis w.. PNA and not CHF - no vol OL sxs and CXR LLL infilaterate, no pulm congestion -hold coreg and anne, and lasix - COVID-19 neg Full code.
[2020-01-27 20:20] LABS: Potassium 3.4 mmol/L (3.5-5.1)
[2020-01-27 22:14] LABS: Actual Bicarbonate (HCO3a) 26.4 mEq/L (22-28); Base Excess (BEa) 4.3 mEq/L (-2.0 to +3.0); CO2 Tension 30.4 mmHg (35.0-45.0); Calcium, Ionized 1.15 mmol/L (1.12-1.30); Carboxyhemoglobin (COHb) 0.9 gm% (0.0-3.0); Hemoglobin (Hb) 9.1 g/dL (14.0-18.0); O2 Tension (PaO2) 171.2 mmHg (> 60.0); Potassium - ABG Lab 3.95 mmol/L (3.70-5.30)
[2020-01-27 22:19] LABS: Puncture Site LBA; pH, Arterial 7.56 (7.35-7.45)
[2020-01-27] MEDS: D5 1/2 NS w/20 mEq KCL 1,000 ML IV SCH (23:27)
[2020-01-27 23:55] LABS: Bacteria/HPF None Seen HPF (None Seen); Bilirubin Negative (Negative); Blood, Urine 2+ (Negative); Clarity Turbid (Clear); Glucose, Urine (Dipstick) Normal (Negative); Leukocyte 250 Leu/uL (Negative); Nitrite Negative (Negative); Protein, Urine (Dipstick) 30 mg/dL (Neg-Trace); RBC/HPF Greater than 50 HPF (0-3); Squamous Epithelial None Seen HPF (0-3); Urobilinogen Normal mg/dL (Less than 2); WBC/HPF Greater than 50 HPF (0-3)
[2020-01-28] MEDS: guaiFENesin 200 MG TAB PO SCH ×5 (01:06→18:02)
[2020-01-28 04:15] LABS: Band 5 % (5-11); Hemoglobin 8.7 g/dL (14.0-18.0); Hypochromia SLIGHT = 6-15 cells (100X) (0-5/hpf); Lymphocytes 7 % (21-51); MDiff Complete? YES; Mean Corpuscular HGB CONC 31.7 g/dL (32.0-36.0); Mean Corpuscular Hemoglobin 29.4 pg (27.0-31.0); Mean Corpuscular Volume 92.7 fL (78.0-98.0); Mean Platelet Volume 8.4 fL (7.4-10.4); Monocytes 4 % (0-10); Neutrophil 84 % (42-75); Platelet Count 422 thou/uL (130-400); Platelet Morphology Comment Appears Increased; RBC Distribution Width 17.1 % (11.5-14.5); Red Blood Cell (RBC) Count 2.97 mill/uL (4.70-6.10); White Blood Cell (WBC) Count 11.2 thou/uL (4.8-10.8)
[2020-01-28 04:17] LABS: Anion Gap 17 mmol/L (10-20); BUN (Urea Nitrogen) 24 mg/dL (8.4-25.7); Calc. Creatinine Clearance 57 mL/min (70-130); Calcium 9.2 mg/dL (7.8-10.44); Carbon Dioxide 25 mmol/L (23-31); Chloride 103 mmol/L (98-107); Estimated GFR-MDRD 65; Glucose 236 mg/dL (83-110); Potassium 3.4 mmol/L (3.5-5.1); Sodium 142 mmol/L (136-145)
[2020-01-28] MEDS: Levothyroxine Sodium 25 MCG TAB PO SCH (06:06)
[2020-01-28] MEDS: Propofol 1,000 MG/100 ML VIAL IV PRN ×3 (06:07→18:02)
[2020-01-28] MEDS: Potassium Chloride 40 MEQ in Premix Bag 1 BAG IVPB PRN (06:08)
[2020-01-28 06:38] LABS: Actual Bicarbonate (HCO3a) 27.3 mEq/L (22-28); Base Excess (BEa) 5.8 mEq/L (-2.0 to +3.0); CO2 Tension 28.6 mmHg (35.0-45.0); Calcium, Ionized 1.16 mmol/L (1.12-1.30); Carboxyhemoglobin (COHb) 0.3 gm% (0.0-3.0); Hemoglobin (Hb) 9.4 g/dL (14.0-18.0); O2 Tension (PaO2) 139.4 mmHg (> 60.0); Potassium - ABG Lab 3.36 mmol/L (3.70-5.30)
[2020-01-28 06:39] LABS: Puncture Site RRA
--- NOTE | 2020-01-28 07:32 | PRG ---
DATE OF SERVICE: 01/27/2020 SUBJECTIVE: Mr. Donny Rogers had a good day. Norepinephrine was able to be titrated off and he is now on dobutamine at 5 mcg/kg/minute. He is able to maintain systolic blood pressure over 120 all day. He is now awake and will interact with staff. He said he is hungry and wants to eat food. He did this by gesturing. It took some time to understand what he wanted. He also has some catheter discomfort. OBJECTIVE: VITAL SIGNS: Include heart rate paced at 80, blood pressure 137/70 , he is saturating 100% on 40% FiO2. His ventilation is 10.8 L/minute. Telemetry was also reviewed. There are few PVC, but there is no concerning arrhythmia. GENERAL: He is alert and wide awake. He will look at you and follow you and try to gesture. HEENT: EOMI. Oropharynx, ET tube in place. NECK: JVP is not accurate. LUNGS: Good air movement on the left lung. He has coarse sounds in the right lung. CARDIAC: Regular rate and rhythm. There is 2/6 holosystolic murmur at the apex with radiation to the left axilla. However, his aortic regurgitation murmur at the right sternal border is difficult to be heard today. ABDOMEN: Soft, nontender, but it is distended. EXTREMITIES: Lower extremities are without edema. Palpable dorsalis pedis pulses. I's and O's: This morning is 498 in and 1395 out with negative 897, he was also negative 1321 from yesterday. LABORATORY DATA: Lab values this morning with sodium 142, potassium 2.6 but that was replaced and the last potassium count was 3.4. The potassium on ABG is 3.95. Creatinine has improved from 1.55 down to 1.27. Potassium was 2.6, but then with supplement at 8:00 p.m. today, it was 3.4. His ABG values show 7.56, pCO2 of 30 , PO2 at 171. He is currently over breathing the vent. He is self breathing about 20 , and the vent rate is about 16. His white cell count has decreased down to 12.6, hemoglobin 9.4, platelet at 449. So far, blood culture and urine culture have been negative. ASSESSMENT: 84-year-old gentleman seen to be recovering nicely from pneumonia of uncertain cough. He is no longer in shock. Dobutamine of 5 mcg/kg/minute is providing sufficient cardiac output. We will defer to Pulmonary Critical Care team for extubation. For now, we will leave him at this current dobutamine setting and this pacemaker setting until extubation occurs. He does need some maintenance fluid, please see the following for recommendations. 1. Leave dobutamine at 5 mcg/kg/minute for now to support him through this. 2. Please provide low-dose maintenance IV fluids. This will consist of D5 half-normal saline with 20 mEq potassium. 3. Please aggressively supplement his potassium to get back up to 4, also magnesium to get it to 2.0. This is to prevent arrhythmias. 4. Please do a chest x-ray in the morning to see his pulmonary status and please follow ABG daily to help with ventilator settings. Once patient is extubated and stable, then we will titrate off the inotropic support and slowly add back heart failure medication as tolerated. This will not occur until the patient is doing much better and extubated. It has been a pleasure taking care of Mr. Donny Rogers. Job ID: [id number] [facility]
--- NOTE | 2020-01-28 07:50 | RAD ---
ONE VIEW CHEST: HISTORY: Followup evaluation. Patient on ventilator. COMPARISON: 01/27/2020. FINDINGS: Left subclavian AICD device, endotracheal tube, nasogastric tube, and right subclavian central venous catheter remain in place and unchanged in position. Postoperative changes f the mediastinum are aga in present. Cardiac silhouette is magnified by projection but does appear enlarged. Increased densi ty is again seen at the left lung base which may represent left pleural effusion and atelectasis. Preciado perimposed pneumonia is a possibility. Mild increase in alveolar opacities within the right mid lung zone and right lung base which could be related to asymmetric pulmonary edema or infectious process. No other interval change. IMPRESSION: 1. Mild increase in alveolar opacities within the right mid lung zone and right lung base which coul d be related to developing pneumonia. Continued followup to resolution is recommended. 2. Increased density left lung base likely related to left pleural effusion and atelectasis. Superi mposed pneumonia is a possibility. 3. Cardiomegaly. POS: [facility]
--- NOTE | 2020-01-28 09:32 | RAD ---
Exam: Chest one view HISTORY:Ventilated patient. Respiratory distress. Follow-up exam. Comparison: 01/28/2020 FINDINGS: Lines and tubes: Stable endotracheal tube, nasogastric tube, left-sided transvenous defibrillator. Re demonstration of sternotomy wires and multiple densities projecting over the thoracic vertebra. Stable right-sided internal jugular vascular catheter. Cardiac silhouette:Cardiomegaly. Aorta: Atherosclerosis. Pulmonary vessels: Mildly prominent Costophrenic angles: Pleural and parenchymal changes in the left lung base, unchanged. LUNGS: Slight improved aeration. Residual interstitial and alveolar opacities do remain. Focal alveol ar opacification the right perihilar region. Pneumothorax: None Osseous abnormalities: None IMPRESSION: 1. Improved aeration. Persistent interstitial and alveolar opacities do remain. Correlate for aspirat ion, heart failure or pneumonia. 2. Continued surveillance.
[2020-01-28] MEDS: Aspirin Chewable 81 MG TAB PO SCH (10:09)
[2020-01-28] MEDS: methylPREDNISolone Sod Succ 40 MG VIAL IVP SCH ×2 (10:09→21:21)
[2020-01-28] MEDS: Apixaban 2.5 MG TAB PO SCH ×2 (10:09→21:21)
[2020-01-28] MEDS: Pantoprazole 40 MG VIAL IVP SCH (10:09)
--- NOTE | 2020-01-28 11:13 | EKG ---
Test Reason : Blood Pressure : / mmHG Vent. Rate : 070 BPM Atrial Rate : 071 BPM P-R Int : 168 ms QRS Dur : 200 ms QT Int : 498 ms P-R-T Axes : 092 -18 087 degrees QTc Int : 537 ms AV dual-paced rhythm Abnormal ECG Confirmed by TONI SANTAMARIA, PARIS Ochoa ([id number]), visual effects editor SHAWN LOZOYA ([id number]) on 01/28/2020 11:12:40 AM Referred By: Confirmed By:PARIS MUÑOZ MD
--- NOTE | 2020-01-28 14:03 | PDOC.HOSPP ---
- Subjective Encounter Date: 01/28/20 Encounter Time: 10:14 Subjective: pt on propafal and dobutamine. CXR w.. persistent alveolar infilterates; afebrile and nl wbcs. - Objective Vital Signs & Weight: Vital Signs (12 hours) Temp Pulse Resp BP 01/28/20 13:02 86 154/91 H 01/28/20 10:48 85 01/28/20 10:00 10 L 01/28/20 09:00 97.7 F 01/28/20 08:00 10 L 01/28/20 06:57 86 148/96 H 01/28/20 06:00 16 01/28/20 04:00 98.6 F 16 Weight Admit Weight 172 lb Weight 172 lb 13.478 oz Most Recent Monitor Data Heart Rate from ECG 84 NIBP 147/92 NIBP BP-Mean 110 Respiration from ECG 12 SpO2 100 I&O: 01/27/20 01/28/20 01/29/20 06:59 06:59 06:59 Intake Total 629 2112 120 Output Total 5295 2235 250 Balance -1321 -123 -130 Result Diagrams: 01/28/20 03:12 01/28/20 03:12 Hospitalist ROS - Medication Medications: Active Medications Generic Name Dose Route Start Last Admin Trade Name Freq PRN Reason Stop Dose Admin Apixaban 2.5 mg 01/26/20 21:00 01/28/20 10:09 Eliquis PO 2.5 mg BID FUNMI Administration Aspirin 81 mg 01/27/20 09:00 01/28/20 10:09 Aspirin Chewable PO 81 mg DAILY FUNMI Administration Guaifenesin 200 mg 01/26/20 17:00 01/28/20 10:09 Organ-I Nr PO 01/28/20 17:01 200 mg Q4HR FUNMI Administration Ceftriaxone Sodium 1 gm/ 100 mls @ 200 mls/hr 01/27/20 13:00 01/27/20 12:28 Sodium Chloride IVPB 100 mls 1300 FUNMI Administration Dobutamine HCl/Dextrose 500 mg 250 mls @ 0 mls/hr 01/26/20 21:00 01/27/20 21: 08 / Device IVPB 250 mls INF FUNMI Administration Protocol As Directed Levofloxacin 500 mg/ Device 100 mls @ 100 mls/hr 01/26/20 21:00 01/27/20 21: 11 IVPB 100 mls Q24HR FUNMI Administration Potassium Chloride 40 meq/ 100 mls @ 50 mls/hr 01/27/20 05:08 01/28/20 06:08 Device IVPB 100 mls ASDIR PRN Administration FOR SERUM K+ 2.5 - 3.5 Magnesium Sulfate 1 gm/ Sodium 102 mls @ 102 mls/hr 01/27/20 05:08 01/27/20 09:02 Chloride IV 102 mls PRN PRN Administration MAG LEVEL 1.4 - 2.0 Potassium Chloride/Dextrose/Sod Cl 1,000 mls @ 50 mls/hr 01/27/20 22:30 01/26 23:27 D5 1/2 Ns W/20 Meq Kcl IV 1,000 mls .Q20H FUNMI Administration Levothyroxine Sodium 25 mcg 01/28/20 06:00 01/28/20 06:06 Synthroid PO 25 mcg 0600 FUNMI Administration Methylprednisolone Sodium Succinate 40 mg 01/26/20 21:00 01/28/20 10:09 Solu-Medrol IVP 40 mg Q12HR FUNMI Administration Potassium Chloride 20 meq 01/27/20 09:00 01/28/20 10:09 Klor-Con PO 20 meq DAILY FUNMI Administration Potassium Chloride 40 meq 01/27/20 05:08 01/27/20 21:30 Klor-Con PER TUBE 40 meq ASDIR PRN Administration FOR SERUM K+ 2.5-3.5 Propofol 1,000 mg 01/26/20 21:01 01/28/20 06:07 Diprivan IV 02/25/20 21:01 1,000 mg INF PRN Administration TO ACHIEVE GOAL RASS Protocol Sertraline HCl 25 mg 01/27/20 09:00 01/28/20 10:09 Zoloft PO 25 mg DAILY FUNMI Administration - Exam General - other findings: vent, sedated Eye: PERRL ENT: normocephalic atraumatic Neck: supple Heart: RRR Respiratory: CTAB, normal chest expansion Gastrointestinal: soft, normal bowel sounds Neurological: cranial nerve grossly intact Hosp A/P - Plan Sepsis 2/2 PNA Acute on chronic Hypoxic resp failure Acute res failure requiring intubation COPD exacerbation Hypovolumic shock cannot be ruled out, as required pressor -- off levophed----continue --CTX+LQ and IV steroid+ BDs. -flu neg - COVID-19 neg - ucux and bl griselda - no growth x 48hrs. - CAD ischemic Cardiomyopathy Diastrolic CHF without exacerbation - clinical picutre of sepsis w.. PNA and not CHF - no vol OL sxs and CXR LLL infilaterate, no pulm congestion -hold coreg and anne, and lasix - COVID-19 neg Full code.
--- NOTE | 2020-01-28 14:42 | PQF ---
DATE: 01-28-20 ATTN: DR. VAISHALI SINGH Please exercise your independent, professional judgment in responding to the clarification form. Clinical indicators are provided on the bottom of this form for your review Please check appropriate box(s): [ x ] Acute Renal Failure/LILLIANA [ ] Insignificant Lab Values [ ] Other diagnosis [ ] Unable to determine In addition, please specify: Present on Admission (POA): [ ] Yes [ ] No [ ] Unable to determine National Kidney Foundation Guidelines for CKD Staging Stage I Kidney damage with normal or increased GFR GFR > 90 Stage IIKidney damage with mildly decreased GFR GFR 60-89 Stage III Kidney damage with moderately decreased GFR GFR 30-59 Stage IVKidney damage with severely decreased GFR GFR 16-29 Stage VKidney failure GFR<15 ESRDEnd Stage Renal Disease On dialysis Acute Renal Failure/Acute Kidney Failure defined as: Increases in SCr by (>) 0.3 mg/dl within 48 hours OR- Increases in SCr by (>) 1.5 times baseline, known or presumed to have occurred within the prior 7 days OR- Urine volume < 0.5 ml/kg/hour for 6 hours (KDIGO supplement 2012 for RIFLE/HERBER criteria) For continuity of documentation, please document condition throughout progress notes and discharge summary. Thank You. CLINICAL INDICATORS - SIGNS / SYMPTOMS / LABS / RESULTS AND LOCATION IN MR: GFR: 01-26-20: 43 01-27-20: 54 01-28-20: 65 CREATININE: 01-26-20: 1.55 01-27-20: 1.27 01-28-20: 1.08 BUN: 01-26-20: 43 01-27-20: 34 01-28-20: 24 RISK FACTORS / RESULTS AND LOCATION IN MR: H&P 01-26-20: SEPSIS WITH PNEUMONIA, HYPOVOLEMIC SHOCK REQUIRING PRESSOR. HOME MED: ASA, TORSEMIDE TREATMENTS / RESULTS AND LOCATION IN MR: ER NOTES 01-26-20: DOBUTAMINE IV, LEVOPHED IV, AZITHROMYCIN IV, CEFTRIAXONE, NS IVF (This form is maintained as a part of the permanent medical record) 2014 [email or web address]. All Rights Reserved [email or web address] [facility]Aye
--- NOTE | 2020-01-28 14:55 | PQF ---
DATE: 01-28-20 ATTN: DR. VAISHALI SINGH Please exercise your independent, professional judgment in responding to the clarification form. Clinical indicators are provided on the bottom of this form for your review Please check appropriate box(s): [ x ] UTI [ ] Contaminated urine specimen without UTI [ ] Other diagnosis [ ] Unable to determine In addition, please specify: Present on Admission (POA): [ ] Yes [ ] No [ ] Unable to determine For continuity of documentation, please document condition throughout progress notes and discharge summary. Thank You. CLINICAL INDICATORS - SIGNS / SYMPTOMS / LABS / RESULTS AND LOCATION IN MR: URINE 01-27-20: UR LEUKOCYTE ESTERASE: 250 A URINE WBC: GREATER THAN 50 A ER NOTES 01-26-20: TEMP: 101.4 RISK FACTORS / RESULTS AND LOCATION IN MR: H&P 01-26-20: WEAKNESS, ALTERED MENTATION, IN WITH SEPSIS SECONDARY TO PNEUMONIA TREATMENT / RESULTS AND LOCATION IN MR: H&P 01-26-20: WILL CONTINUE WITH CEFTRIAXONE AND ZITHROMAX MAR: 01-27-20: IVF (This form is maintained as a part of the permanent medical record) 2014 [employer] All Rights Reserved [email or web address] Cell [facility]
[2020-01-28] MEDS: cefTRIAXone\\ROCEPHIN 1 GM in Sodium Chloride 0.9% 100 ML IVPB SCH (15:48)
[2020-01-28] MEDS: D5 1/2 NS w/20 mEq KCL 1,000 ML IV SCH (18:02)
[2020-01-28] MEDS: DOBUTamine 500 mg/250 ml 500 MG in Premix Bag 1 BAG IVPB SCH (18:12)
[2020-01-28] MEDS ORDERED: guaiFENesin 200 MG TAB PO PRN (20:00)
--- NOTE | 2020-01-28 21:24 | PRG ---
DATE OF SERVICE: 01/28/2020 SUBJECTIVE: Mr. Donny Rogers had a good day. He was awake and feisty during the day. In the morning, he had a pH of 7.6 due to respiratory alkalosis. His sedation was increased and also vent setting was changed to where his frequency has decreased from 16 down to 10 and he has been holding his blood pressure steadily on dobutamine of 5 mcg/kg/minute. There is no issue with hemodynamics. REVIEW OF SYSTEMS: The patient is intubated and sedated. He is asleep and he cannot answer questions. CURRENT MEDICATIONS: His current cardiac medications include apixaban 2.5 mg twice a day, dobutamine at 5 mcg/kg per minute, aspirin 81 mg daily. His current antibiotics include ceftriaxone 1 g daily and levofloxacin 500 mg IV daily. PHYSICAL EXAMINATION: VITAL SIGNS: Heart rate 90, blood pressure 134/85. His vent setting is frequency is 10 and minute ventilation is 6.7. GENERAL: He is sedated and intubated. He is not waking up, so we will leave him alone because he is sleeping. HEENT. He has ET tube placed. NECK: JVP is not accurate. PULMONARY: He has good air movement in bilateral lungs, has improved from yesterday. CARDIAC: Regular rate and rhythm. Per telemetry, he is A sensed, V paced. He has 2/6 diastolic murmur at the right sternal border. He also has 2/6 holosystolic murmur at the apex with radiation to the left axilla. ABDOMEN: Soft, large, but nontender. Positive bowel sounds. EXTREMITIES: He has good bilateral radial pulses. Lower extremities without edema. Has dorsalis pedis pulses bilaterally. SKIN: Warm and well perfused. LABORATORY VALUES: His morning laboratory values include sodium 142, potassium 3.4, BUN 24, creatinine 1.08, and magnesium of 2.1. Laboratory value is negative for influenza A and negative also for influenza B. Urine culture negative in 48 hours. Blood cultures are negative at 48 hours. ASSESSMENT: 84-year-old gentleman is recovering well from pneumonia and septic shock like condition. Currently, the infectious source is unclear. It could be a viral infection, or could be atypical bacterial infection such as mycoplasma that is normally not tested, coupled with underlying COPD that is probably what caused his respiratory distress on admission. Currently, he is ventilating easily. The dobutamine at 5 mcg/kg/min is providing sufficient cardiac output. His renal function has returned to normal. Please see the following for recommendations. RECOMMENDATIONS: 1. Keep dobutamine at 5 mcg/kg/minute. He will need his cardiac output to be sustained even through this infection. I recommend that we keep at this dose until he is extubated. After that, we can titrate it down. 2. Please do BMP and magnesium now to make sure his electrolytes are corrected. 3. Please do ABG to follow up on his change in vent setting. We do not want him to be too acidotic due to depressed ventilation. 4. Once he is extubated, we can titrate off dobutamine. At that time, we can reinstitute his heart failure medications. It has been a pleasure taking care of Mr. Donny Rogers. If you have any questions, please give me a call. Job ID: [id number] MTDD
[2020-01-29] MEDS: Propofol 1,000 MG/100 ML VIAL IV PRN ×5 (03:38→21:55)
[2020-01-29] MEDS: DOBUTamine 500 mg/250 ml 500 MG in Premix Bag 1 BAG IVPB SCH ×2 (03:47→16:58)
[2020-01-29 05:01] LABS: Band 4 % (5-11); Hemoglobin 9.1 g/dL (14.0-18.0); Lymphocytes 1 % (21-51); MDiff Complete? YES; Mean Corpuscular HGB CONC 31.9 g/dL (32.0-36.0); Mean Corpuscular Hemoglobin 29.6 pg (27.0-31.0); Mean Corpuscular Volume 92.6 fL (78.0-98.0); Mean Platelet Volume 8.5 fL (7.4-10.4); Monocytes 1 % (0-10); Myelocyte 1 % (0-0); Neutrophil 93 % (42-75); Platelet Count 416 thou/uL (130-400); RBC Distribution Width 17.2 % (11.5-14.5); Red Blood Cell (RBC) Count 3.07 mill/uL (4.70-6.10); White Blood Cell (WBC) Count 12.5 thou/uL (4.8-10.8)
[2020-01-29 05:04] LABS: Anion Gap 13 mmol/L (10-20); BUN (Urea Nitrogen) 22 mg/dL (8.4-25.7); Calc. Creatinine Clearance 58 mL/min (70-130); Calcium 9.1 mg/dL (7.8-10.44); Carbon Dioxide 27 mmol/L (23-31); Chloride 103 mmol/L (98-107); Estimated GFR-MDRD 66; Glucose 296 mg/dL (83-110); Potassium 4.5 mmol/L (3.5-5.1); Sodium 138 mmol/L (136-145)
[2020-01-29] MEDS: Levothyroxine Sodium 25 MCG TAB PO SCH (05:56)
[2020-01-29 06:47] LABS: Actual Bicarbonate (HCO3a) 24.5 mEq/L (22-28); Base Excess (BEa) 0.1 mEq/L (-2.0 to +3.0); CO2 Tension 38.4 mmHg (35.0-45.0); Calcium, Ionized 1.22 mmol/L (1.12-1.30); Carboxyhemoglobin (COHb) 0.3 gm% (0.0-3.0); Hemoglobin (Hb) 9.6 g/dL (14.0-18.0); O2 Tension (PaO2) 117.5 mmHg (> 60.0); Potassium - ABG Lab 4.46 mmol/L (3.70-5.30); Puncture Site RRA; pH, Arterial 7.42 (7.35-7.45)
--- NOTE | 2020-01-29 07:09 | PRG ---
DATE OF SERVICE: 01/28/2020 SUBJECTIVE: Mr. Rogers remains mechanically ventilated. OBJECTIVE: GENERAL: He is in no distress. VITAL SIGNS: Heart rate 86, blood pressure 154/90, respiratory rate is in teens to low 20s. LUNGS: Remarkable for distant breath sounds. HEART: Regular rate and rhythm. ABDOMEN: Soft. EXTREMITIES: Without edema. NEUROLOGIC: Cannot assess. LABORATORY DATA: White count 11.2, hemoglobin 8.7, platelets 422. Sodium 142, potassium 3.4, chloride 103, bicarb 25, BUN 24, creatinine 1.08. A pH of 7.6, CO2 of 28, pO2 of 139. Microbiology shows no at growth 48 hours, urine no growth at 48 hours. IMPRESSION: 1. Respiratory failure associated with chronic obstructive pulmonary disease exacerbation. 2. Underlying cardiomyopathy. Gas exchange is improving. I suspect his several-day decline leading up to this admission, progressive weakness, fatigue, and hypercarbia, all related to pre-existing deconditioning on top of chronic obstructive pulmonary disease. Start decreasing ventilatory support. Will assess him on a day by day basis. CRITICAL CARE TIME: 30 minutes. Job ID: [id number]
--- NOTE | 2020-01-29 07:44 | RAD ---
PORTABLE CHEST 1 VIEW: DATE: 01/29/2020. TIME: 5:18 AM. HISTORY: Respiratory failure. COMPARISON: Previous day. FINDINGS/IMPRESSION: No significant interval changes are seen. POS: JOSELUIS
[2020-01-29] MEDS: Apixaban 2.5 MG TAB PO SCH ×2 (09:59→21:04)
[2020-01-29] MEDS: Aspirin Chewable 81 MG TAB PO SCH (09:59)
[2020-01-29] MEDS: methylPREDNISolone Sod Succ 40 MG VIAL IVP SCH ×2 (10:00→21:05)
[2020-01-29] MEDS ORDERED: Pantoprazole 40 MG GRANULES PACKET PER TUBE SCH (10:15)
--- NOTE | 2020-01-29 11:52 | PRG ---
DATE OF SERVICE: 01/29/2020 SUBJECTIVE: Mr. Rogers remains sedated for ventilation. OBJECTIVE: VITAL SIGNS: Heart rate is 88, blood pressure is 133/72, FiO2 is down to 30%, respiratory rates in the teens. His pressure support and tidal volumes are small. LUNGS: Clear and distant. HEART: Regular rhythm. ABDOMEN: Soft. EXTREMITIES: Without edema. LABORATORY DATA: Blood gas 7.42, CO2 of 30, PO2 of 117. White count 12.5, hemoglobin 9.1, platelets 416. Electrolytes are normal. Chest radiograph shows no change. IMPRESSION: 1. Respiratory failure secondary to chronic obstructive pulmonary disease exacerbation. 2. Status post COVID ruled out. 3. Deconditioning with history of Parkinson's, cared for by family. 4. History of cardiomyopathy, in a paced rhythm. 5. Extreme deconditioning. PLAN: Continue slow weaning. He may be a candidate for extubation this weekend if he passes a long minimal ventilatory support trial. CRITICAL CARE TIME: 30 minutes. Job ID: [id number]
[2020-01-29] MEDS: cefTRIAXone\\ROCEPHIN 1 GM in Sodium Chloride 0.9% 100 ML IVPB SCH (12:41)
[2020-01-29] MEDS: D5 1/2 NS w/20 mEq KCL 1,000 ML IV SCH (13:27)
--- NOTE | 2020-01-29 14:04 | PDOC.HOSPP ---
- Subjective Encounter Date: 01/29/20 Encounter Time: 10:45 Subjective: respiratory therapist in the room, pt on proofal and dobutamine. stable on the vent. - Objective Vital Signs & Weight: Vital Signs (12 hours) Temp Pulse Resp BP 01/29/20 13:07 93 124/80 01/29/20 10:47 88 133/72 01/29/20 07:26 87 137/79 01/29/20 06:00 10 L 01/29/20 04:00 97.8 F 10 L 01/29/20 02:04 92 127/79 Weight Admit Weight 172 lb Weight 174 lb 13.225 oz Most Recent Monitor Data Heart Rate from ECG 92 NIBP 129/82 NIBP BP-Mean 97 Respiration from ECG 12 SpO2 100 I&O: 01/28/20 01/29/20 01/30/20 06:59 06:59 06:59 Intake Total 2112 3201 Output Total 2235 954 Balance -123 2247 Result Diagrams: 01/29/20 03:30 01/29/20 03:30 Hospitalist ROS - Medication Medications: Active Medications Generic Name Dose Route Start Last Admin Trade Name Freq PRN Reason Stop Dose Admin Apixaban 2.5 mg 01/26/20 21:00 01/29/20 09:59 Eliquis PO 2.5 mg BID FUNMI Administration Aspirin 81 mg 01/27/20 09:00 01/29/20 09:59 Aspirin Chewable PO 81 mg DAILY FUNMI Administration Ceftriaxone Sodium 1 gm/ 100 mls @ 200 mls/hr 01/27/20 13:00 01/29/20 12:41 Sodium Chloride IVPB 100 mls 1300 FUNMI Administration Dobutamine HCl/Dextrose 500 mg 250 mls @ 0 mls/hr 01/26/20 21:00 01/29/20 03: 47 / Device IVPB 250 mls INF FUNMI Administration Protocol As Directed Levofloxacin 500 mg/ Device 100 mls @ 100 mls/hr 01/26/20 21:00 01/28/20 21: 22 IVPB 100 mls Q24HR FUNMI Administration Potassium Chloride 40 meq/ 100 mls @ 50 mls/hr 01/27/20 05:08 01/28/20 06:08 Device IVPB 100 mls ASDIR PRN Administration FOR SERUM K+ 2.5 - 3.5 Magnesium Sulfate 1 gm/ Sodium 102 mls @ 102 mls/hr 01/27/20 05:08 01/27/20 09:02 Chloride IV 102 mls PRN PRN Administration MAG LEVEL 1.4 - 2.0 Potassium Chloride/Dextrose/Sod Cl 1,000 mls @ 50 mls/hr 01/27/20 22:30 01/28 13:27 D5 1/2 Ns W/20 Meq Kcl IV 1,000 mls .Q20H FUNMI Administration Levothyroxine Sodium 25 mcg 01/28/20 06:00 01/29/20 05:56 Synthroid PO 25 mcg 0600 FUNMI Administration Methylprednisolone Sodium Succinate 40 mg 01/26/20 21:00 01/29/20 10:00 Solu-Medrol IVP 40 mg Q12HR FUNMI Administration Potassium Chloride 20 meq 01/27/20 09:00 01/29/20 09:59 Klor-Con PO 20 meq DAILY FUNMI Administration Potassium Chloride 40 meq 01/27/20 05:08 01/27/20 21:30 Klor-Con PER TUBE 40 meq ASDIR PRN Administration FOR SERUM K+ 2.5-3.5 Propofol 1,000 mg 01/26/20 21:01 01/29/20 13:28 Diprivan IV 02/25/20 21:01 1,000 mg INF PRN Administration TO ACHIEVE GOAL RASS Protocol Sertraline HCl 25 mg 01/27/20 09:00 01/29/20 09:59 Zoloft PO 25 mg DAILY FUNMI Administration - Exam General - other findings: vent, sedated. Eye: PERRL ENT: normocephalic atraumatic Neck: supple, no lymphadenopathy Heart: RRR, normal peripheral pulses Respiratory: CTAB, normal chest expansion Gastrointestinal: soft, normal bowel sounds Neurological: no focal deficits Hosp A/P - Plan Sepsis 2/2 PNA Acute on chronic Hypoxic resp failure Acute resP failure requiring intubation COPD exacerbation Hypovolumic shock cannot be ruled out, as required pressor -- off levophed----continue --CTX+LQ and IV steroid+ BDs. -flu neg - COVID-19 neg - ucux and bl griselda - no growth x 48hrs. 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 PNA and not CHF - no vol OL sxs and CXR LLL infilaterate, no pulm congestion -hold coreg and anne, and lasix - COVID-19 neg Full code.
[2020-01-29] MEDS ORDERED: Furosemide 40 MG/4 ML VIAL SLOW IVP SCH (17:30)
[2020-01-29] MEDS: Amiodarone 200 MG TAB PO SCH (21:04)
[2020-01-30 00:02] LABS: Anion Gap 15 mmol/L (10-20); BUN (Urea Nitrogen) 21 mg/dL (8.4-25.7); Calc. Creatinine Clearance 58 mL/min (70-130); Carbon Dioxide 25 mmol/L (23-31); Chloride 100 mmol/L (98-107); Estimated GFR-MDRD 65; Glucose 354 mg/dL (83-110); Magnesium 2.1 mg/dL (1.6-2.6); Potassium 4.9 mmol/L (3.5-5.1); Sodium 135 mmol/L (136-145)
[2020-01-30] MEDS ORDERED: Dextrose 50% Abboject 50 ML SYRINGE SLOW IVP PRN (00:58)
[2020-01-30] MEDS ORDERED: Dextrose 5% in Water 1,000 ML IV PRN (00:58)
[2020-01-30] MEDS: Insulin Regular 300 UNITS/3 ML VIAL SC PRN ×5 (01:29→21:37)
[2020-01-30] MEDS: Propofol 1,000 MG/100 ML VIAL IV PRN ×3 (02:54→14:45)
[2020-01-30 04:12] LABS: Anion Gap 17 mmol/L (10-20); BUN (Urea Nitrogen) 22 mg/dL (8.4-25.7); Calc. Creatinine Clearance 58 mL/min (70-130); Calcium 8.8 mg/dL (7.8-10.44); Carbon Dioxide 23 mmol/L (23-31); Chloride 101 mmol/L (98-107); Estimated GFR-MDRD 65; Glucose 376 mg/dL (83-110); Potassium 4.9 mmol/L (3.5-5.1); Sodium 136 mmol/L (136-145)
[2020-01-30 05:13] LABS: Hemoglobin 9.3 g/dL (14.0-18.0); Mean Corpuscular HGB CONC 32.1 g/dL (32.0-36.0); Mean Corpuscular Hemoglobin 29.9 pg (27.0-31.0); Mean Platelet Volume 8.6 fL (7.4-10.4); Platelet Count 394 thou/uL (130-400); RBC Distribution Width 17.1 % (11.5-14.5); Red Blood Cell (RBC) Count 3.13 mill/uL (4.70-6.10); White Blood Cell (WBC) Count 9.7 thou/uL (4.8-10.8)
[2020-01-30 05:14] LABS: Anisocytosis SLIGHT = 6-15 cells (100X) (0-5/hpf); Band 9 % (5-11); Eosinophils 1 % (0-10); Lymphocytes 3 % (21-51); MDiff Complete? YES; Monocytes 3 % (0-10); Neutrophil 84 % (42-75); Platelet Morphology Comment Appears Adequate
[2020-01-30] MEDS: Levothyroxine Sodium 25 MCG TAB PO SCH (05:53)
[2020-01-30] MEDS: DOBUTamine 500 mg/250 ml 500 MG in Premix Bag 1 BAG IVPB SCH (08:28)
--- NOTE | 2020-01-30 09:05 | RAD ---
CHEST ONE VIEW: HISTORY: On ventilator. Follow-up evaluation. COMPARISON: 01/28/2020 FINDINGS: Left subclavian AICD device, right subclavian central venous catheter, endotracheal tube and nasogast nichol tube remain in place. Postoperative changes related to median sternotomy are again seen. The card iac silhouette remains enlarged. There are patchy alveolar opacities again seen in the mid lung zones and in each lung base. Findings have not significantly changed compared to the prior exam. No other interval change. IMPRESSION: 1. Alveolar opacities in the mid lung zones and in each lung base, which may be related to multifocal pneumonia. Followup to resolution is recommended. 2. Cardiomegaly. 3. Lines and tubes stable in position. POS: OFF
[2020-01-30] MEDS: Amiodarone 200 MG TAB PO SCH ×2 (09:15→20:30)
[2020-01-30] MEDS: Aspirin Chewable 81 MG TAB PO SCH (09:15)
[2020-01-30] MEDS: Apixaban 2.5 MG TAB PO SCH ×2 (09:15→20:30)
[2020-01-30] MEDS: methylPREDNISolone Sod Succ 40 MG VIAL IVP SCH (09:16)
[2020-01-30] MEDS: Pantoprazole 40 MG GRANULES PACKET PER TUBE SCH (09:16)
[2020-01-30] MEDS: Milrinone Lactate/D5W 20 MG in Premix Bag 1 BAG IVPB SCH (10:22)
--- NOTE | 2020-01-30 10:33 | PRG ---
DATE OF SERVICE: 01/29/2020 SUBJECTIVE: Mr. Rogers had a variable day. There was an attempt at weaning him off the vent later this morning. However, he tired and was not tolerating the vent weaning process. Thus, he was sedated again and put back on vent to rest. Otherwise, it has been a quiet day. MEDICATIONS: His current cardiac medications include. 1. Dobutamine 5 mcg/kg/min IV GTT. 2. Apixaban 2.5 mg b.i.d. 3. Aspirin 81 mg daily. 4. He is also being treated for acute COPD exacerbation and pneumonia with combination of Solu-Medrol 40 mg q.12 hours. 5. Ceftriaxone 1 g daily. 6. Levofloxacin 500 mg daily. Telemetry was reviewed for the last 36 hours, and pacer AICD was also interrogated. There were 3 runs of ventricular tachycardia at docketing specialist of January 27. All three runs resembles torsades with changing morphologies and also changing amplitudes. It is definitely ventricular origin occurred while the atrial rate is about 75. This occur in the setting of a low potassium and levofloxacin. Since last 24 hours, there has been no more runs of ventricular tachycardia. The ECG was also done along with interrogation. It shows that his underlying rhythm is sinus rhythm with left bundle branch block. His THEATRICAL RIGGER-D device was interrogated and programed. - there were 3 episodes of torsades - adjust rate and response setting to decrease ectopy and reduce probability of torsade - atrail rate stabilization is turned on, it will pace at a faster rate than atrial ectopy to prevent onset of SVTs - The ventricular rate stabilization is also turned on. The device will monitor occurence of PVC and then pace at a rate a bit faster than PVC. - Consequently, this gave his apparent overall A-paced rate of about 85 to 90. He has been stable at this setting for the last 24 hours. - 97% A-paced, V-paced. It is a biventricular pacemaker, so we will coordinate his septal and lateral wall contractions. OBJECTIVE: VITAL SIGNS: Current vitals are heart rate paced at 87, blood pressure 120/78. GENERAL: He is intubated and sedated. He will wake up and look at you and goes back to sleep. HEENT: He will open his eyes spontaneous and will look at the person. The ET tube is in place. NECK: JVP is about 2/3rds neck, but not accurate because this is reclined near horizontal. PULMONARY: He has a new appearance of basilar crackles, more prominent in the right base. CARDIAC: Regular rate with occasional irregularity. He has 1/6 diastolic murmur at the right sternal border and also 2/6 holosystolic murmur at the apex with radiation to the left axilla. ABDOMEN: Distended, soft, nontender. EXTREMITIES: Lower extremities are without pitting edema and palpable dorsalis pulses. LABORATORY VALUES: Sodium 138, potassium 4.5, BUN 22, creatinine 1.07. His high glucose is 296. ASSESSMENT: 84-year-old gentleman is recovering from combination of pneumonia causing septic shock with probable chronic obstructive pulmonary disease exacerbation. Currently, a bacterial origin has not been specifically identified. An atypical bacterial infection such as mycoplasma is also possible. A virus that is non- COVID or non-influenza is also possible. Fortunately, overall he seems to be recovering. He does have underlying cardiac dysfunction at one time with heart failure with reduced ejection fraction that was recovered recently. I suspect with current insult, his cardiac function probably has been depressed. Consequently, he will need inotropic support to get him through this. He does have a history of nonsustained ventricular tachycardia. The latest episode is more related to his stress stay and electrolyte deficiencies. However, it would still be prudent to keep this under control. Please see the following for more recommendations. RECOMMENDATIONS: 1. Lasix 40 mg IV one dose now. 2. Check BMP and magnesium at 5 hours after Lasix and replace potassium and magnesium as needed. 3. Please keep potassium above 4 and magnesium above 2 at all times. 4. Start low-dose loading of amiodarone 200 mg via tube twice a day. 5. We will keep dobutamine at current dosage once he is extubated, and then we will titrate this down, switch over to his heart failure medications. We will defer pulmonary treatment to his Critical Care team. 6. It has been a pleasure taking care of Mr. Donny Rogesr. If you have any questions, please give me a call. Job ID: [id number] [facility]
--- NOTE | 2020-01-30 10:46 | PRG ---
DATE OF SERVICE: 01/30/2020 SUBJECTIVE: Mr. Rogers had an uneventful night. He rested well. There were some PVCs, but there was no ventricular tachycardia and no torsades. He also tolerated Lasix 40 mg IV one dose of diuresis without any difficulties or significant drop in blood pressure. MEDICATIONS: His current cardiac medications include: 1. Amiodarone 200 mg twice a day. 2. Apixaban 2.5 mg twice a day. 3. Dobutamine has been titrated down to 3 mcg/kg/minute. 4. Aspirin 81 mg daily. 5. His antibiotic consists of ceftriaxone 1 g daily and also levofloxacin 500 mg daily. His telemetry was reviewed. There were PVCs, but there was no recurrence of ventricular tachycardia or torsades. His pacemaker [employer]-D was re-interrogated again. Again, this did not show any ventricular tachycardia or torsades since the last interrogation. Exercise rate response was turned off. This will allow the device to ignore the ventilator as a way to speed it up. However, atrial suppression and ventricular suppression were left on, the meaning that you would pace to suppress atrial ectopy and also pace to suppress ventricular ectopy, so this has been working. I tested a range of pacing rates again. At 80 beats per minute lower rate limit gave the best smooth pacing with the least some amount of ectopy, so we are going to leave him on lower rate of 80 beats per minute. PHYSICAL EXAMINATION: VITAL SIGNS: Heart rate paced at 80, blood pressure 142/79. GENERAL: He is arousable. He opens his eyes and will interact. He is pointing to his stomach. He is gesturing that he is hungry. NECK: JVP is not accurate at the reclined position. HEENT: Showed that his ET tube is in place. LUNGS: Good air movement at the left lung; however, there are coarse breath sounds at the right base of the lung. CARDIAC: Regular rate and rhythm, which was paced, 1/6 diastolic murmur at the left sternal border and then also 2/6 holosystolic murmur at the apex with radiation to the left axilla. ABDOMEN: Large, but soft and nontender. Positive bowel sounds. EXTREMITIES: His lower extremities are without edema. There are positive dorsalis pedis pulses bilaterally. LABORATORY VALUES: There is no ABG this morning. His chemistry this morning is showing sodium of 136, potassium of 4.9, BUN of 22 and creatinine of 1.08. His glucose was high at 376. His CBC shows his white cell count has decreased down to 9.7, platelets stable at 394, and hemoglobin is at 9.3. His I's and O's for the last 24 hours is about 2800 in and 1800 out, so it is positive about a liter. His urine output was about 1765. ASSESSMENT: 84-year-old gentleman is recovering from pneumonia, septic shock, and possibly chronic obstructive pulmonary disease exacerbation. He remains intubated. White cell count is coming down which is a good sign. We will wait for the primary team to attempt to wean off the ventilator. In the meantime, we will keep his cardiac function well and we will start to decrease the volume, to make the lungs as dry as possible to support extubation. There has been torsades with a low potassium and initiation of levofloxacin. I understand that levofloxacin was needed for his lungs. We had been using amiodarone and also using atrial and ventricular ectopy suppression, so it seemed to be working; however, if the next time that torsade occurs, then we will need to stop levofloxacin and switch over to doxycycline. At this time, with good blood pressure and dobutamine down to 3 mcg/kg/minute, we will attempt to switch to milrinone that would help with the ectopy but yet give heart support and support extubation. Milrinone will also have added effect of further lowering pulmonary pressure that will also help with the extubation. Please see the following for recommendations. RECOMMENDATIONS: 1. Please do ABG now. 2. Start milrinone at 0.125 mcg/kg/minute IV GTT, run it for about an hour. If systolic blood pressure is over 100, and MAP is over 70 after 1 hour, then decrease dobutamine to 2 mcg/kg/minute and then increase milrinone to 0.25 mcg/kg/minute and then after 1 hour, if SBP > 100 or MAP > 70 mmHg, then increase milrinone to 0.375, observe for another hour, if SBP > 100 mmHg or MAP > 70 mmHg, then titrate off dobutamine 3. Transthoracic echocardiogram to look for cardiac function, especially the right ventricular function and his aortic insufficiency. 4. I recommend that please do a Nutrition consult if he cannot be extubated today. 5. His blood sugar has been high. I would recommend to provide schedule of insulin or continue the insulin infusion to bring his glucose down below 200. 6. Please continue to supplement his electrolytes to keep potassium above 4 and magnesium above 2. It has been a pleasure taking care of Mr. Donny Rogers. If you have any questions, please give me a call. Job ID: [id number] MTDD
[2020-01-30] MEDS: Lorazepam 2 MG/ML VIAL SLOW IVP PRN ×2 (12:21→14:14)
[2020-01-30] MEDS: cefTRIAXone\\ROCEPHIN 1 GM in Sodium Chloride 0.9% 100 ML IVPB SCH (12:21)
[2020-01-30] MEDS ORDERED: D5 1/2 NS w/20 mEq KCL 1,000 ML IV SCH (12:32)
--- NOTE | 2020-01-30 12:38 | PDOC.HOSPP ---
- Subjective Encounter Date: 01/30/20 Encounter Time: 10:30 Subjective: The patient is currently intubated, however is awake and answers yes/no questions and follows commands. Patient reports he has chest congestion and pain from the breathing tube. He is requesting pain medication. He has some shortness of breath. No abdominal pain - Objective Vital Signs & Weight: Vital Signs (12 hours) Temp Pulse Resp BP Pulse Ox 01/30/20 12:00 97.5 F L 23 H 01/30/20 11:05 80 01/30/20 10:00 23 H 01/30/20 08:00 97.8 F 11 L 01/30/20 06:53 79 01/30/20 06:00 11 L 01/30/20 04:00 97.7 F 13 100 01/30/20 02:20 83 129/74 01/30/20 02:00 14 Weight Admit Weight 172 lb Weight 190 lb 4.143 oz Most Recent Monitor Data Heart Rate from ECG 81 NIBP 132/82 NIBP BP-Mean 98 Respiration from ECG 10 SpO2 100 I&O: 01/29/20 01/30/20 01/31/20 06:59 06:59 06:59 Intake Total 3201 2792.8 88.5 Output Total 954 1765 490 Balance 2247 1027.8 -401.5 Result Diagrams: 01/30/20 03:13 01/30/20 03:13 Additional Labs: Accuchecks 01/30/20 01/30/20 12:08 06:14 POC Glucose 267 H 341 H Hospitalist ROS - Review of Systems ROS unobtainable: due to endotracheal tube Constitutional: denies: fever, chills - Medication Medications: Active Medications Generic Name Dose Route Start Last Admin Trade Name Freq PRN Reason Stop Dose Admin Amiodarone HCl 200 mg 01/29/20 21:00 01/30/20 09:15 Cordarone PO 200 mg BID FUNMI Administration Apixaban 2.5 mg 01/26/20 21:00 01/30/20 09:15 Eliquis PO 2.5 mg BID FUNMI Administration Aspirin 81 mg 01/27/20 09:00 01/30/20 09:15 Aspirin Chewable PO 81 mg DAILY FUNMI Administration Ceftriaxone Sodium 1 gm/ 100 mls @ 200 mls/hr 01/27/20 13:00 01/30/20 12:21 Sodium Chloride IVPB 100 mls 1300 FUNMI Administration Dobutamine HCl/Dextrose 500 mg 250 mls @ 0 mls/hr 01/26/20 21:00 01/30/20 08: 28 / Device IVPB 250 mls INF FUNMI Administration Protocol As Directed Levofloxacin 500 mg/ Device 100 mls @ 100 mls/hr 01/26/20 21:00 01/29/20 21: 05 IVPB 100 mls Q24HR FUNMI Administration Potassium Chloride 40 meq/ 100 mls @ 50 mls/hr 01/27/20 05:08 01/28/20 06:08 Device IVPB 100 mls ASDIR PRN Administration FOR SERUM K+ 2.5 - 3.5 Magnesium Sulfate 1 gm/ Sodium 102 mls @ 102 mls/hr 01/27/20 05:08 01/27/20 09:02 Chloride IV 102 mls PRN PRN Administration MAG LEVEL 1.4 - 2.0 Milrinone Lactate/Dextrose 20 100 mls @ 0 mls/hr 01/30/20 10:00 01/30/20 10: 22 mg/ Device IVPB 100 mls INF FUNMI Administration Protocol Titrate Insulin Human Regular 0 units 01/30/20 00:58 01/30/20 12:18 Humulin R SC 4 unit .MILD SLIDING SCALE PRN Administration Mild Correctional Scale Levothyroxine Sodium 25 mcg 01/28/20 06:00 01/30/20 05:53 Synthroid PO 25 mcg 0600 FUNMI Administration Lorazepam 2 mg 01/26/20 21:01 01/30/20 12:21 Ativan SLOW IVP 02/25/20 21:01 2 mg Q1H PRN Administration Breakthrough agitation Pantoprazole Sodium 40 mg 01/30/20 09:00 01/30/20 09:16 Protonix PER TUBE 40 mg DAILY FUNMI Administration Potassium Chloride 20 meq 01/27/20 09:00 01/30/20 09:16 Klor-Con PO 20 meq DAILY FUNMI Administration Potassium Chloride 40 meq 01/27/20 05:08 01/27/20 21:30 Klor-Con PER TUBE 40 meq ASDIR PRN Administration FOR SERUM K+ 2.5-3.5 Propofol 1,000 mg 01/26/20 21:01 01/30/20 08:32 Diprivan IV 02/25/20 21:01 1,000 mg INF PRN Administration TO ACHIEVE GOAL RASS Protocol Sertraline HCl 25 mg 01/27/20 09:00 01/30/20 09:15 Zoloft PO 25 mg DAILY FUNMI Administration - Exam General Appearance: NAD, awake alert General - other findings: intubated, responds to commands ENT: normocephalic atraumatic, no oropharyngeal lesions Neck: supple, no JVD Heart: RRR, no murmur, no gallops, no rubs Respiratory: CTAB, no wheezes, no rales, no ronchi Gastrointestinal: soft, non-tender, non-distended, normal bowel sounds Extremities: no cyanosis, no clubbing, no edema Hosp A/P - Plan Chest X ray 01/29: multifocal pneumonia, cardiomegaly This is an 84 year old male with history of rheumatoid arthritis who presented with fever, hypotension, tachycardia, cough #Acute hypoxic respiratory failure secondary to septic shock secondary from multifocal pneumonia #COPD exacerbation - Chest X ray 01/29 shows multifocal pneumonia. On IV levaquin and ceftriaxone since 01/25 and pressors. - blood cultures negative, urine culture negative, flu panel negative, urine strep and COVID 19 negative - IV steroids discontinued 01/29 - currently intubated, no weaning today per pulmonary #Systolic heart failure #CAD s/p bypass #Pacemaker s/p AICD - Dr. Kimble following - patient started on milrinone drip today at 0.25 mcg/minute for one hour. If sBP > 100 and MAP >70 after 1 hour, then decrease dobutamin eto 2 mcg/kg/min and increase milrinone to .25 mcg/kg/minute, then titrate dobutamine after an hour with MAP > 70 -repeat ECHO - continue eliquis - amiodarone 200 mg bid Hyperglycemia - secondary to dextrose and steroids. On insulin sliding scale - blood sugars 200 - 300. Started lantus 15 units SC qhs. Steroids discontinued Anemia - Hb 9.3, stable Hypothyroidism -continue levothyroxine Code status: full code
[2020-01-30] MEDS ORDERED: Insulin Glargine 15 UNITS in Pre-Filled Syringe SC SCH (12:45)
--- NOTE | 2020-01-30 12:49 | PRG ---
DATE OF SERVICE: 01/30/2020 SERVICE: Pulmonary Medicine. INTERVAL HISTORY: The patient is doing fine from respiratory standpoint. He is on very little oxygen. He is comfortable on mechanical ventilator, but cannot provide any additional elements of the history. Whenever he gets little agitated, he will get a coughing fit. With coughing fit, he requires a dose of propofol, which causes him to ride the ventilator. This also affects his blood pressure. As such, we will be switching him over to Precedex to see if this is efficacious for controlling his anxiety. Otherwise, there has been no interval change to his condition. There has been no additional torsades overnight. He is being overdrive paced essentially. He is being switched from the dobutamine over to the Milrinone. As such, there is not the right time for us to consider extubating him. PHYSICAL EXAMINATION: VITAL SIGNS: Afebrile. Pulse 80, blood pressure 132/82, respirations 10, saturation 100%, currently on 27% FiO2 and a PEEP of 5. GENERAL: The patient is awake and alert, in no apparent distress. LUNGS: Decent air entry. Dependent crackles are present. HEART: Normal rate, regular. ABDOMEN: Soft, nontender, nondistended. Bowel sounds are positive. MUSCULOSKELETAL: No cyanosis or clubbing. There is no pitting in the bilateral lower extremities. NEUROLOGIC: Grossly nonfocal. LABORATORY DATA: WBC 9.7, hemoglobin 9.3, platelets 394,000. PH 7.42, pCO2 38 , PO2 117 on 40% FiO2 at that time. Creatinine is stable at 1.08. Basic metabolic profile is otherwise unremarkable. Calcium 8.8, glucose 341. Red blood cells and white blood cells are high. COVID is not detected. Strep urine antigen is negative. Blood cultures x2, urine culture, and influenza A and B are unremarkable. IMAGING DATA: Chest x-ray demonstrates bilateral infiltrates, which tend to layer. There is an enlarged cardiac silhouette. In addition, there is likely layering effusion bilaterally, which seems to be a little worse on the left. Endotracheal tube remains in good position. There is an enteric catheter coursing midline below the level of the diaphragm. Multiple lines from the defibrillator pacemaker in place. ASSESSMENT: 1. Acute hypoxic respiratory failure. 2. Acute on chronic systolic heart failure. 3. Parkinson's disease with history of deconditioning. 4. Status torsades, two days ago. DISCUSSION AND PLAN: The patient is doing fine from respiratory standpoint. We will wean away oxygen. He is being converted from the dobutamine to the Milrinone, so I am not interested in considering him for extubation at this moment. We will introduce some Precedex to see if we can liberate him from the propofol. Long-acting insulin will be introduced. Critical care time: 30 minutes. Job ID: [id number] MTDD
[2020-01-31] MEDS: D5 1/2 NS w/20 mEq KCL 1,000 ML IV SCH (00:14)
[2020-01-31] MEDS: Milrinone Lactate/D5W 20 MG in Premix Bag 1 BAG IVPB SCH ×2 (00:32→17:06)
[2020-01-31 04:16] LABS: Hemoglobin A1c 6.8 % (4.0-6.0)
[2020-01-31 04:17] LABS: #Lymphocytes 0.6 thou/uL (1.20-3.40); #Monocytes 0.4 thou/uL (0.11-0.59); #Neutrophils 9.5 thou/uL (1.40-6.50); %Eosinophils 0.4 % (0.0-10.0); %Lymphocytes 5.6 % (21.0-51.0); %Monocytes 4.1 % (0.0-10.0); %Neutrophils 89.9 % (42.0-75.0); Hemoglobin 9.7 g/dL (14.0-18.0); Mean Corpuscular HGB CONC 31.2 g/dL (32.0-36.0); Mean Corpuscular Hemoglobin 28.9 pg (27.0-31.0); Mean Corpuscular Volume 92.3 fL (78.0-98.0); Mean Platelet Volume 8.3 fL (7.4-10.4); Platelet Count 425 thou/uL (130-400); RBC Distribution Width 16.9 % (11.5-14.5); Red Blood Cell (RBC) Count 3.34 mill/uL (4.70-6.10); White Blood Cell (WBC) Count 10.6 thou/uL (4.8-10.8)
[2020-01-31 04:32] LABS: Phosphorus 2.3 mg/dL (2.3-4.7)
[2020-01-31 04:39] LABS: Anion Gap 14 mmol/L (10-20); BUN (Urea Nitrogen) 23 mg/dL (8.4-25.7); Calc. Creatinine Clearance 70 mL/min (70-130); Carbon Dioxide 24 mmol/L (23-31); Chloride 103 mmol/L (98-107); Estimated GFR-MDRD 74; Glucose 180 mg/dL (83-110); Magnesium 2.1 mg/dL (1.6-2.6); Potassium 4.4 mmol/L (3.5-5.1); Sodium 137 mmol/L (136-145)
[2020-01-31] MEDS: Insulin Regular 300 UNITS/3 ML VIAL SC PRN (04:51)
[2020-01-31] MEDS: Levothyroxine Sodium 25 MCG TAB PO SCH (05:27)
[2020-01-31] MEDS: Amiodarone 200 MG TAB PO SCH ×2 (09:11→20:42)
[2020-01-31] MEDS: Aspirin Chewable 81 MG TAB PO SCH (09:11)
[2020-01-31] MEDS: Apixaban 2.5 MG TAB PO SCH ×2 (09:11→20:42)
[2020-01-31] MEDS: Pantoprazole 40 MG GRANULES PACKET PER TUBE SCH (09:12)
--- NOTE | 2020-01-31 10:58 | PRG ---
DATE OF SERVICE: 01/31/2020 Mr. Donny Rogers had a very good day. His pacemaker [employer]-D was used for atrial and ventricular ectopic control with success. An attempt at transitioned from dobutamine to milrinone was made to decrease the amount of the ectopy in support of his antibiotics. However, due to his basal dilatory state from sepsis this could not be done completely. Currently, he is on dobutamine 2 mcg/kg/min and milrinone 0.25 mcg/kg/min. However, this did have a very good effect. His urine output increased without diuretics, so he was able to be even with this fluid input without any use of diuretics. He is alert. He will spontaneously open his eyes and has indicated that he is a bit hungry. REVIEW OF SYSTEMS: Cannot be done because he is intubated. MEDICATIONS: His cardiac medications include: 1. Dobutamine 2 mcg/kg/min. 2. Milrinone 0.25 mcg/kg/min. 3. Amiodarone 200 mg b.i.d. 4. Apixaban 2.5 mg b.i.d. 5. Aspirin 81 mg daily. His antibiotics consist of 1. Levofloxacin 500 mg daily. 2. Ceftriaxone 1 g daily. OBJECTIVE: VITAL SIGNS: His telemetry was reviewed. He is majority A paced, V paced at 80 beats per minute that is the last setting and at [employer]. He has some PVC. There is no concerning arrhythmia and there is no recurrence torsade. His current set of vitals are heart rate paced at 80, blood pressure 127/74. GENERAL: He is sedated, but when asked he will open his eyes and look at the examiner and follows directions and gesture. HEENT: EOMI. Has ETT in place. NECK: His JVP is not accurate due to reclined position. PULMONARY: He has much better air movement in bilateral lungs today, improvement from yesterday. The coarse breath sounds and slight crackles are gone. This indicates that the little bit of pulmonary edema that he had yesterday is now gone. CARDIAC: Regular rate and rhythm with 1/6 diastolic murmur at the right sternal border and 2/6 holosystolic murmur at apex with radiation to the left axilla. ABDOMEN: Soft, nontender. Positive bowel sounds. EXTREMITIES: Lower extremity without edema. There are positive dorsalis pedis pulses bilaterally. LABORATORY DATA: Evaluation includes sodium 137, potassium 4.4, BUN 23, creatinine 0.97, magnesium 2.1. His white cell count came down to 9.7. Hemoglobin is stable at 9.3, and platelet is at 394. ASSESSMENT: 84-year-old gentleman is recovering from the primary insult of pneumonia causing septic shock-like state. Also the exact pathogen is currently not known, the combination of ceftriaxone and levofloxacin seem to be working. From a cardiac perspective, combination of atrial ectopy suppression, ventricular ectopy suppression and amiodarone is working. Reducing the dobutamine down to 2 mcg/kg with the aid of milrinone 0.25 mcg/kg, has increased cardiac output and also reduced the ectopy potential. At this point, we will work towards to keep the heart in regular rhythm as much as possible and give sufficient cardiac output to self diurese as much as possible. Currently, he is euvolemic and is able to keep even with his IV fluid input, so there is no diuretics needed today. RECOMMENDATIONS: Please see the following for recommendations: 1. We will keep his [employer]D setting at a basal rate 80 beats per minute with atrial ectopy suppression mode on and also ventricular ectopy suppression mode on. 2. Continue with dobutamine at 2 mcg/kg/min and also milrinone at 0.25 mcg/kg/ min. With somewhat septic like state, the Milrinone probably will not be able to titrate up any higher because of the vasodilatory potential. He seemed to demonstrate that he would need a certain amount of dobutamine. It will be okay to keep on the dobutamine or two if this combination is providing him sufficient cardiac output to the kidneys where he is self diuresing and keeping himself even. This is demonstrated by last 24 hours of 1407 in and 1500 out. 3. Please keep potassium above 4 and also magnesium above 2 as you are doing. 4. Please consider providing the patient tube feed and schedule insulin along with tube feed plus sliding scale if he is continue to be intubated 5. Once he is extubated and stable, then we will work on titrating off his inotropic support. For now, we will leave the inotropes on to support him through this acute period. It has been a pleasure taking care of Mr. Donny Rogers. If you have any questions, please give me a call. Job ID: [id number] MTDD
--- NOTE | 2020-01-31 11:17 | PRG ---
DATE OF SERVICE: 01/31/2020 INTERVAL HISTORY: The patient is doing fine from respiratory standpoint. Breathing comfortably. He is being transitioned off the dobutamine today. In 2 hours, the dobutamine will be discontinued. If he tolerates that for a couple of hours, we will put him on a spontaneous breathing trial. If he meets criteria, extubation will be considered today. He cannot provide much in the way of interval history, but when he wakes up, he is cool calm and collected. He denies having any significant difficulty breathing. PHYSICAL EXAMINATION: VITAL SIGNS: Afebrile, pulse 80, blood pressure 124/71, respirations 17, saturation 100%, currently on 21% FiO2 and a PEEP of 5. GENERAL: The patient is awake and alert, in no apparent distress. LUNGS: Decent air entry. Minimal dependent crackles are present. No prolonged expiratory phase or wheezing appreciated. HEART: Normal rate and regular. ABDOMEN: Soft, nontender, nondistended. Bowel sounds are positive. There is no pitting in the bilateral lower extremities. There is trace 1+ pitting at the sacrum. : Dougherty catheter in place. NEUROLOGIC: Grossly nonfocal. LABORATORY DATA: WBC 10.6, hemoglobin 9.7, platelets 425,000, roughly stable. Basic metabolic profile is essentially unremarkable with a downtrending creatinine of 0.97. Magnesium and phosphorous fall within normal limits. Urine culture, blood culture x2, and influenza A and B are all unremarkable. DIAGNOSTIC DATA: An echocardiogram demonstrates 40% to 45% ejection fraction with moderately enlarged right ventricular cavity. Right ventricle has a wire in it. Moderate mitral regurgitation is present. ASSESSMENT: 1. Acute hypoxic respiratory failure. 2. [id number] systolic heart failure. 3. Mitral regurgitation, moderate. 4. Status post torsades. 5. Parkinson disease with a history of deconditioning. DISCUSSION AND PLAN: If the patient makes transition off the dopamine comfortably, we will proceed with a spontaneous breathing trial and likely extubation. Critical Care will continue to follow along in this location. CRITICAL CARE TIME: 30 minutes. Job ID: [id number]
--- NOTE | 2020-01-31 14:38 | PDOC.HOSPP ---
- Subjective Encounter Date: 01/31/20 Encounter Time: 10:30 Subjective: The patient was extubated and doing okay on nasal cannula. He has some chest congestion, mild cough. Some shortness of breath. - Objective Vital Signs & Weight: Vital Signs (12 hours) Temp Pulse Resp Pulse Ox 01/31/20 12:00 97.5 F L 01/31/20 10:33 80 01/31/20 10:00 18 01/31/20 08:00 97.5 F L 12 100 01/31/20 07:36 80 01/31/20 06:00 12 01/31/20 04:00 98.5 F 12 Weight Admit Weight 172 lb Weight 187 lb 2.759 oz Most Recent Monitor Data Heart Rate from ECG 91 NIBP 98/56 NIBP BP-Mean 70 Respiration from ECG 27 SpO2 100 I&O: 01/30/20 01/31/20 02/01/20 06:59 06:59 06:59 Intake Total 2792.8 1407.1 63 Output Total 1765 1500 306 Balance 1027.8 -92.9 -243 Result Diagrams: 01/31/20 03:35 01/31/20 03:35 Additional Labs: Accuchecks 01/31/20 01/30/20 01/30/20 10:03 21:39 16:40 POC Glucose 147 H 255 H 243 H Hospitalist ROS - Review of Systems Constitutional: denies: fever, chills - Medication Medications: Active Medications Generic Name Dose Route Start Last Admin Trade Name Freq PRN Reason Stop Dose Admin Amiodarone HCl 200 mg 01/29/20 21:00 01/31/20 09:11 Cordarone PO 200 mg BID FUNMI Administration Apixaban 2.5 mg 01/26/20 21:00 01/31/20 09:11 Eliquis PO 2.5 mg BID FUNMI Administration Aspirin 81 mg 01/27/20 09:00 01/31/20 09:11 Aspirin Chewable PO 81 mg DAILY FUNMI Administration Dobutamine HCl/Dextrose 500 mg 250 mls @ 0 mls/hr 01/26/20 21:00 01/30/20 08: 28 / Device IVPB 250 mls INF FUNMI Administration Protocol As Directed Potassium Chloride 40 meq/ 100 mls @ 50 mls/hr 01/27/20 05:08 01/28/20 06:08 Device IVPB 100 mls ASDIR PRN Administration FOR SERUM K+ 2.5 - 3.5 Magnesium Sulfate 1 gm/ Sodium 102 mls @ 102 mls/hr 01/27/20 05:08 01/27/20 09:02 Chloride IV 102 mls PRN PRN Administration MAG LEVEL 1.4 - 2.0 Milrinone Lactate/Dextrose 20 100 mls @ 0 mls/hr 01/30/20 10:00 01/31/20 00: 32 mg/ Device IVPB 100 mls INF FUNMI Administration Protocol Titrate Potassium Chloride/Dextrose/Sod Cl 1,000 mls @ 0 mls/hr 01/30/20 12:32 16:43 D5 1/2 Ns W/20 Meq Kcl IV 1,000 mls .Q0M FUNMI Administration KVO Dexmedetomidine HCl 200 mcg/ 50 mls @ 0 mls/hr 01/30/20 12:45 01/31/20 09:10 Sodium Chloride IVPB 50 mls INF FUNMI Administration Protocol Per Protocol Insulin Human Regular 0 units 01/30/20 00:58 01/31/20 04:51 Humulin R SC 2 unit .MILD SLIDING SCALE PRN Administration Mild Correctional Scale Insulin Human Regular 0 units 01/30/20 00:58 01/30/20 21:37 Humulin R SC 3 unit .BEDTIME SLIDING SC PRN Administration Bedtime Correctional Scale Levothyroxine Sodium 25 mcg 01/28/20 06:00 01/31/20 05:27 Synthroid PO 25 mcg 0600 FUNMI Administration Pantoprazole Sodium 40 mg 01/30/20 09:00 01/31/20 09:12 Protonix PER TUBE 40 mg DAILY FUNMI Administration Potassium Chloride 20 meq 01/27/20 09:00 01/31/20 09:11 Klor-Con PO 20 meq DAILY FUNMI Administration Potassium Chloride 40 meq 01/27/20 05:08 01/27/20 21:30 Klor-Con PER TUBE 40 meq ASDIR PRN Administration FOR SERUM K+ 2.5-3.5 Sertraline HCl 25 mg 01/27/20 09:00 01/31/20 09:12 Zoloft PO 25 mg DAILY FUNMI Administration - Exam General Appearance: NAD, awake alert Eye: PERRL, anicteric sclera ENT: normocephalic atraumatic, no oropharyngeal lesions Neck: supple, no JVD Heart: RRR, no murmur, no gallops, no rubs Respiratory: rales Respiratory - other findings: mild rales bilaterally. o2 6L Gastrointestinal: soft, non-tender, non-distended Extremities: no cyanosis, no clubbing, no edema Skin: normal turgor, no lesions, no rashes Neurological: cranial nerve grossly intact, normal sensation to touch, no focal deficits, no new deficit Hosp A/P - Plan Chest X ray 01/29: multifocal pneumonia, cardiomegaly ECHO: moderate MR, moderate , severe TR, EF 40-45% This is an 84 year old male with history of rheumatoid arthritis who presented with fever, hypotension, tachycardia, cough #Acute hypoxic respiratory failure secondary to septic shock secondary from multifocal pneumonia #COPD exacerbation - s/p extubation - Chest X ray 01/29 shows multifocal pneumonia. On IV levaquin and ceftriaxone since 01/25. Discontinued since completed five day course - blood cultures negative, urine culture negative, flu panel negative, urine strep and COVID 19 negative - IV steroids discontinued 01/29 #Systolic heart failure #CAD s/p bypass #Pacemaker s/p AICD # Moderate aortic stenosis and mitral regurgitation #Severe tricuspid regurgitation - Dr. Kimble following. On milrinone drip and dobutamine - continue eliquis - amiodarone 200 mg bid Type II Diabetes - HbA1C 6.8 - increase lantus to 19 units qhs today Anemia - Hb 9.3, stable Hypothyroidism -continue levothyroxine Code status: full code
[2020-01-31] MEDS ORDERED: Albumin 25% 25 GM/100 ML BOT IVPB SCH (15:15)
[2020-01-31] MEDS ORDERED: Sodium Chloride 0.9% 250 ML IVPB SCH (15:15)
[2020-01-31] MEDS ORDERED: Furosemide 20 MG/2 ML VIAL SLOW IVP SCH (17:00)
[2020-01-31] MEDS: Insulin Glargine 19 UNITS in Pre-Filled Syringe 1 EACH SC SCH (20:41)
[2020-01-31] MEDS: DOBUTamine 500 mg/250 ml 500 MG in Premix Bag 1 BAG IVPB SCH (22:01)
[2020-02-01 04:38] LABS: #Eosinphils 0.3 thou/uL (0.0-0.7); #Lymphocytes 0.9 thou/uL (1.20-3.40); #Monocytes 0.8 thou/uL (0.11-0.59); %Basophils 0.1 % (0.0-1.0); %Eosinophils 2.6 % (0.0-10.0); %Monocytes 6.9 % (0.0-10.0); %Neutrophils 82.5 % (42.0-75.0); Mean Corpuscular Hemoglobin 29.5 pg (27.0-31.0); Mean Corpuscular Volume 92.3 fL (78.0-98.0); Mean Platelet Volume 8.4 fL (7.4-10.4); Platelet Count 398 thou/uL (130-400); RBC Distribution Width 16.9 % (11.5-14.5)
[2020-02-01 04:47] LABS: Phosphorus 2.6 mg/dL (2.3-4.7)
[2020-02-01 04:48] LABS: Anion Gap 14 mmol/L (10-20); BUN (Urea Nitrogen) 22 mg/dL (8.4-25.7); Calc. Creatinine Clearance 56 mL/min (70-130); Calcium 9.2 mg/dL (7.8-10.44); Carbon Dioxide 25 mmol/L (23-31); Chloride 105 mmol/L (98-107); Estimated GFR-MDRD 58; Glucose 109 mg/dL (83-110); Magnesium 2.1 mg/dL (1.6-2.6); Potassium 4.4 mmol/L (3.5-5.1); Sodium 140 mmol/L (136-145)
[2020-02-01] MEDS: Levothyroxine Sodium 25 MCG TAB PO SCH (06:06)
[2020-02-01] MEDS ORDERED: Furosemide 40 MG/4 ML VIAL ONE (09:10)
[2020-02-01] MEDS: Apixaban 2.5 MG TAB PO SCH ×2 (09:18→20:16)
[2020-02-01] MEDS: Amiodarone 200 MG TAB PO SCH ×2 (09:18→20:17)
[2020-02-01] MEDS: Aspirin Chewable 81 MG TAB PO SCH (09:18)
[2020-02-01] MEDS: Pantoprazole 40 MG GRANULES PACKET PER TUBE SCH (09:27)
--- NOTE | 2020-02-01 09:39 | RAD ---
EXAM: CHEST ONE VIEW HISTORY: CHF versus pneumonia. COMPARISON: 01/30/2020 FINDINGS: Triple lead left subclavian AICD device and right internal jugular vein central venous catheters randy in in place. The endotracheal tube and nasogastric tubes have been removed. Median sternotomy changes are again seen. Cardiac silhouette is enlarged. There is increased density at the left lung base which may represent left pleural effusion and atelectasis. However, pneumonia at the left lung base is a possibility. There has been mild improvement in the right perihilar inters titial and alveolar opacities compared to the prior study which may be related to improvement in pneumonia. Vascular calcifications are seen in the thoracic aorta. No other interval change. IMPRESSION: 1. Persistent opacity left lung base which may be related to left pleural effusion and atelectasis, b ut pneumonia is a possibility. 2. Improvement in interstitial alveolar opacities in the right perihilar location predominantly in th e right midlung zone and right lung base which may be related to improving pneumonia. 3. Cardiomegaly. 4. Continued follow-up to resolution is recommended.
[2020-02-01] MEDS: Furosemide 40 MG/4 ML VIAL SLOW IVP SCH ×2 (09:57→17:48)
--- NOTE | 2020-02-01 10:44 | PRG ---
DATE OF SERVICE: 02/01/2020 SUBJECTIVE: An 84-year-old gentleman is well known to me extubated, doing well, less short of breath. OBJECTIVE: VITAL SIGNS: Temperature 98, blood pressure 118/81, pulse 103, saturations 98%, respiratory rate 13. CHEST: Decreased breath sounds. No wheezing. CARDIAC: Normal S1 and S2. ABDOMEN: No masses. LABORATORY DATA: Lytes are normal. White count 11,000. IMPRESSION: 1. Respiratory failure, congestive heart failure, chronic obstructive pulmonary disease, advanced age. 2. Severe deconditioning. PLAN: He is on Dobutrex and milrinone as per Cardiology. Hopefully, once that has been tapered to p.o. medication, he can be transferred out of the ICU. Pulmonary/Critical Care is going to follow while in the ICU. In the meantime, schedule neb treatments, PT, supportive care. Job ID: [id number]
--- NOTE | 2020-02-01 10:48 | PRG ---
DATE OF SERVICE: 02/01/2020 SUBJECTIVE: Mr. Rogers's hemodynamics changed quite a bit after extubation yesterday. First he was successfully extubated. He was breathing good and euvolemic. Blood pressure went down some. He needed to increase the dobutamine to 5 mcg/kg/min along with milrinone 0.25 mcg/kg/min to keep him even. In the afternoon, he apparently became a bit dyspneic due to pulmonary edema. He received Lasix 20 mg IV one dose. He did well overnight, but then this morning he become more dyspneic and the nurses noticed much coarse lung sounds. The patient said he is actually doing well. He is eating well. He wants to see Dr. Decker for his rheumatoid arthritis and back pain. REVIEW OF SYSTEMS: GENERAL: No fever or chills. HEENT: There is no change in vision, hearing or swallowing. He is actually eating well. PULMONARY: Cough with productive pink sputum. CARDIOVASCULAR: There is no syncope. No chest pain. GI: He is eating and he had 2 bowel movements. : He is on a Dougherty catheter. NEUROLOGIC: There is no focal deficits or weaknesses. MUSCULOSKELETAL: He wants to make sure that he gets rheumatoid arthritis medicine. He has back pain. INTEGUMENT: He has chronic sacral decubitus. He actually had that at home. He developed because he sits in the recliner all day. MEDICATIONS: His current cardiac medications include dobutamine at 5 mcg/kg/min , milrinone 0.25 mcg/kg/min, amiodarone at 200 mg b.i.d., apixaban 2.5 mg twice a day. PHYSICAL EXAMINATION: CURRENT VITALS SIGNS: Heart rate about 98, blood pressure 115/56. GENERAL: He is alert and conversational. However, he is shortness of breath while on nasal cannula oxygen, unable to carry on long sentences. HEENT: Show EOMI. Oropharynx benign with moist mucosa. NECK: His JVP is elevated at about 12 or 13 cm. PULMONARY: He has bilateral crackles at lower one-half and slight wheeze. ABDOMEN: Distended, soft, nontender. EXTREMITIES: Lower extremity, there is minimal edema. Positive dorsalis pedis pulses bilaterally. LABORATORY DATA: White cell count coming back up a bit at 11, hemoglobin at 10 and platelets at 398. His chemistry shows sodium 140, potassium 4.4, BUN 22, creatinine 1.2. His echocardiogram done on January 30, 2020 was reviewed. 1. The left ventricle is dilated at 5.9 cm. 2. His left ventricle ejection fraction has decreased from 50% down to 35%. 3. He has moderate aortic stenosis. He has moderate aortic insufficiency. 4. He has moderate mitral regurgitation. 5. He has a probable severe diastolic dysfunction with very slow E prime velocity about 2.5. 6. His right ventricle is moderately dilated, but with normal right ventricular function. 7. He has severe tricuspid regurgitation. 8. His estimated pulmonary arterial pressure is approximately 60 mmHg. 9. His inferior vena cava is very dilated, suggesting he is volume overloaded. ASSESSMENT: 84-year-old gentleman is recovering from pneumonia, sepsis, chronic obstructive pulmonary disease exacerbation. The pulmonary stress has caused return of his cardiac dysfunction. His ejection fraction decreased from 50% down to 35 %. The ejection fraction of 35% is actually falsely elevated because the echo was done on combination of dobutamine and Milrinone. His actual ejection fraction probably is lower than 35%. Currently, he is volume overloaded. He will need aggressive diuresis for one day to prevent the need for re-intubation. The source of pulmonary exacerbation still have not been identified. Apparently he did respond to levofloxacin which is stopped. Perhaps it will be prudent to cover him for a full two weeks of atypical infection. These atypical infections were not tested in blood or urine cultures. RECOMMENDATIONS: 1. Lasix 40 mg IV twice a day for one day, 1st dose now. 2. Sputum culture. 3. Chest x-ray to check for worsening of heart failure or pneumonia. 4. Doxycycline 100 mg twice a day for 11 days, so this will give him a full two week course of antibiotics. 5. May titrate down dobutamine, but keep mean arterial pressure greater than 70 or systolic blood pressure greater than 100. 6. Please check BMP and magnesium at 6:00 p.m. today. I do expect the patient to have significant electrolyte loss since he will be undergoing diuretics today. It has been a pleasure taking care of Mr. Rogers. If you have any questions, please give me a call. Job ID: [id number] [facility]
[2020-02-01] MEDS: Doxycycline 100 MG CAP PO SCH ×2 (11:41→20:16)
--- NOTE | 2020-02-01 14:16 | PDOC.HOSPP ---
- Subjective Encounter Date: 02/01/20 Encounter Time: 13:00 Subjective: F/u : heart failure Patient states he had some hemoptysis yesterday, shortness of breath is about the same. He hasn't ambulated much. Per Dr. Kimble, dobutamine weaned down to 5, continue milrinone - Objective Vital Signs & Weight: Vital Signs (12 hours) Temp Pulse Resp Pulse Ox 02/01/20 13:57 89 25 H 100 02/01/20 12:00 98.2 F 02/01/20 08:00 98 F 98 02/01/20 04:00 98.4 F Weight Admit Weight 172 lb Weight 188 lb 7.924 oz Most Recent Monitor Data Heart Rate from ECG 82 NIBP 125/60 NIBP BP-Mean 81 Respiration from ECG 20 SpO2 100 I&O: 01/31/20 02/01/20 02/02/20 06:59 06:59 06:59 Intake Total 1407.1 1097.8 400 Output Total 1500 1691 960 Balance -92.9 -593.2 -560 Result Diagrams: 02/01/20 04:00 02/01/20 04:00 Additional Labs: Accuchecks 02/01/20 02/01/20 01/31/20 11:20 04:04 22:04 POC Glucose 155 H 107 134 H 01/31/20 16:54 POC Glucose 154 H Hospitalist ROS - Review of Systems Constitutional: denies: fever, chills Respiratory: denies: cough, dry, shortness of breath Cardiovascular: denies: chest pain, palpitations - Medication Medications: Active Medications Generic Name Dose Route Start Last Admin Trade Name Jonnieq PRN Reason Stop Dose Admin Albuterol/Ipratropium 3 ml 02/01/20 13:00 02/01/20 13:57 Duoneb NEB 3 ml [id number] FUNMI Administration Amiodarone HCl 200 mg 01/29/20 21:00 02/01/20 09:18 Cordarone PO 200 mg BID FUNMI Administration Apixaban 2.5 mg 01/26/20 21:00 02/01/20 09:18 Eliquis PO 2.5 mg BID FUNMI Administration Aspirin 81 mg 01/27/20 09:00 02/01/20 09:18 Aspirin Chewable PO 81 mg DAILY FUNMI Administration Doxycycline Hyclate 100 mg 02/01/20 09:00 02/01/20 11:41 Vibramycin PO 02/12/20 09:01 100 mg BID FUNMI Administration Furosemide 40 mg 02/01/20 10:00 02/01/20 09:57 Lasix SLOW IVP 02/01/20 20:00 Not Given 1000,1800 FUNMI Dobutamine HCl/Dextrose 500 mg 250 mls @ 0 mls/hr 01/26/20 21:00 01/31/20 22: 01 / Device IVPB 250 mls INF FUNMI Administration Protocol As Directed Potassium Chloride 40 meq/ 100 mls @ 50 mls/hr 01/27/20 05:08 01/28/20 06:08 Device IVPB 100 mls ASDIR PRN Administration FOR SERUM K+ 2.5 - 3.5 Magnesium Sulfate 1 gm/ Sodium 102 mls @ 102 mls/hr 01/27/20 05:08 01/27/20 09:02 Chloride IV 102 mls PRN PRN Administration MAG LEVEL 1.4 - 2.0 Milrinone Lactate/Dextrose 20 100 mls @ 0 mls/hr 01/30/20 10:00 01/31/20 17: 06 mg/ Device IVPB 100 mls INF FUNMI Administration Protocol Titrate Potassium Chloride/Dextrose/Sod Cl 1,000 mls @ 0 mls/hr 01/30/20 12:32 16:43 D5 1/2 Ns W/20 Meq Kcl IV 1,000 mls .Q0M FUNMI Administration KVO Insulin Glargine 19 units/ 0.19 mls @ 0 mls/hr 01/31/20 21:00 01/31/20 20:41 Miscellaneous Medication SC Not Given HS FUNMI Insulin Human Regular 0 units 01/30/20 00:58 01/31/20 04:51 Humulin R SC 2 unit .MILD SLIDING SCALE PRN Administration Mild Correctional Scale Insulin Human Regular 0 units 01/30/20 00:58 01/30/20 21:37 Humulin R SC 3 unit .BEDTIME SLIDING SC PRN Administration Bedtime Correctional Scale Levothyroxine Sodium 25 mcg 01/28/20 06:00 02/01/20 06:06 Synthroid PO 25 mcg 0600 FUNMI Administration Potassium Chloride 20 meq 01/27/20 09:00 02/01/20 09:26 Klor-Con PO 20 meq DAILY FUNMI Administration Potassium Chloride 40 meq 01/27/20 05:08 01/27/20 21:30 Klor-Con PER TUBE 40 meq ASDIR PRN Administration FOR SERUM K+ 2.5-3.5 Sertraline HCl 25 mg 01/27/20 09:00 02/01/20 09:18 Zoloft PO 25 mg DAILY FUNMI Administration - Exam General Appearance: awake alert Eye: PERRL, anicteric sclera ENT: normocephalic atraumatic, no oropharyngeal lesions Neck: no JVD Heart: RRR, no murmur, no gallops, no rubs Respiratory - other findings: rhonchi bilaterally Gastrointestinal: soft, non-tender, non-distended Hosp A/P - Plan Chest X ray 01/29: multifocal pneumonia, cardiomegaly Chest xray 01/31: cardiomegaly. Improving interstitial alveolar opacities in the right perihilar location in right mid lung zone and right lung base. Persistent opacity left lung base possibly left pleural effusion vs pneumonia ECHO: moderate MR, moderate , severe TR, EF 40-45% This is an 84 year old male with history of rheumatoid arthritis who presented with fever, hypotension, tachycardia, cough #Acute hypoxic respiratory failure secondary to septic shock secondary from multifocal pneumonia and acute systolic heart failure #COPD exacerbation #Moderate aortic stenosis and mitral regurgitation #Severe tricuspid regurgitation - s/p extubation - Chest X ray 01/29 shows multifocal pneumonia. On IV levaquin and ceftriaxone since 01/25. Discontinued since completed five day course. - chest X ray 01/31 shows improving interstitial opacities. Doxycycline added for hemoptysis by cardiology. Plan to continue for another 7 days. Will check sputum culture - blood cultures negative, urine culture negative, flu panel negative, urine strep and COVID 19 negative - IV steroids discontinued 01/29 - on milrinone and dobutamine drip by cardiology. Attempting to wean dobutamine today, goal to keep MAP > 70/SBP > 100 - started lasix 40 mg IV daily. Repeat BMP + Mg 6 pm, give additional 40 mg IV lasix accordingly #Pacemaker s/p AICD - continue eliquis - amiodarone 200 mg bid Type II Diabetes - HbA1C 6.8 - continue lantus to 19 units qhs today Anemia - Hb 9.3, stable Hypothyroidism -continue levothyroxine Code status: full code
[2020-02-01] MEDS: Milrinone Lactate/D5W 20 MG in Premix Bag 1 BAG IVPB SCH (14:46)
--- NOTE | 2020-02-01 16:41 | PDOC.PALCO ---
Palliative Care Consult - Consult Details Requesting Physician: Dr Sotelo Reason for Consult: goals of care, advance directives assistance Family Members Present: None - Pertinent HPI 84 year old male who lives independently at home with his significant other with daughter living close by offering support. Patient initially presented to the emergency room with onset of weakness, altered mental status shortness of breath with elevated heart rate. Unknown onset, and appears in history there were no relieving factory prior to emergency room evaluation. Admitted to CCU and was subsequently intubated, difficult extubation. Dr Kimble follows. Patient has declined, Palliative care was consulted to visit with patient and revisit goals of care paired iwth multiple morbidities. - Social History Smoking Status: Former smoker Smoking: no tobacco exposure Alcohol Use: none Drug Use History: none Living Situation: with partner - Allergies Allergies/Adverse Reactions: Allergies Allergy/AdvReac Type Severity Reaction Status Date / Time Iodinated Contrast Media Allergy Mild Hives Verified 10/09/19 08:07 [Iodinated Contrast Media - IV Dye] Penicillins Allergy Mild Hives Verified 10/09/19 08:07 [id number] Reductase Allergy Mild Stomach Verified 10/09/19 08:07 Inhibitor Ache iodine Allergy Verified 04/22/19 14:50 - Subjective Awake, alert, weakness. Denies complaints, happy he is moving out of the CCU soon to tele - ROS Constitutional: alert, weakness ENT: other (denies rhinorrhea, throat discomfort) Respiratory: shortness of breath Cardiology: other (negative for chest pain) Musculoskeletal: arthritis/arthralgias Psychological: other (denies depression or anxiety) - Objective Vital Signs: Vital Signs - Most Recent Temp Pulse Resp BP Pulse Ox 98.3 F 89 25 H 116/68 100 02/01/20 16:00 02/01/20 13:57 02/01/20 13:57 01/31/20 02:31 02/01/20 13:57 Palliative Performance Scale: 30 - Physical Exam Constitutional: ill appearing, mild distress HEENT: EOMI, moist MMs, sclera anicteric Respiratory: diminished lung sound Cardiovascular: RRR Gastrointestinal: non-tender, no distention Genitourinary: gonzales catheter Neurology: moves all 4 limbs Skin: cap refill <2 seconds Psychiatric: A&O x 3 - Problem List (1) Palliative care encounter Code(s): Z51.5 - ENCOUNTER FOR PALLIATIVE CARE Current Visit: Yes Status: Acute (2) Physical deconditioning Code(s): R53.81 - OTHER MALAISE Current Visit: Yes Status: Acute (3) Acute worsening of stage 3 chronic kidney disease Code(s): N18.3 - CHRONIC KIDNEY DISEASE, STAGE 3 (MODERATE) Current Visit: No Status: Acute (4) Anemia, normocytic normochromic Code(s): D64.9 - ANEMIA, UNSPECIFIED Current Visit: No Status: Chronic (5) COPD (chronic obstructive pulmonary disease) Current Visit: No Status: Chronic Qualifiers: COPD type: chronic bronchitis (6) Chronic stage c diastolic heart failure Code(s): I50.32 - CHRONIC DIASTOLIC (CONGESTIVE) HEART FAILURE Current Visit: No Status: Chronic - Plan/Recommendations Plan: Introduced Palliative Care to patient, discussed multiple morbidities and goal of care. He hopes to eventually transition home, continue living independently with his girlfriend and have his daughter continue to assist with transportation to Dr appointments. Continue to remain with full resuscitation measures. Introduced idea of rehab or home health to facilitate strength for living independently, he was resistant to this idea. Informed family we ar a resource to assist with navigation of goal of care in relation to optimal discharge. Palliative Care will sign off, please reconsult if we can be of assistance in the future. [50] minutes spent on this encounter with >50% of the time in counseling and coordination of care. Thank you for this very appropriate consult.
[2020-02-01 18:42] LABS: Anion Gap 10 mmol/L (10-20); BUN (Urea Nitrogen) 19 mg/dL (8.4-25.7); Calc. Creatinine Clearance 52 mL/min (70-130); Calcium 8.7 mg/dL (7.8-10.44); Carbon Dioxide 29 mmol/L (23-31); Chloride 104 mmol/L (98-107); Estimated GFR-MDRD 52; Glucose 178 mg/dL (83-110); Magnesium 1.9 mg/dL (1.6-2.6); Potassium 3.9 mmol/L (3.5-5.1); Sodium 139 mmol/L (136-145)
[2020-02-01] MEDS: Insulin Glargine 19 UNITS in Pre-Filled Syringe 1 EACH SC SCH (20:15)
[2020-02-01] MEDS: DOBUTamine 500 mg/250 ml 500 MG in Premix Bag 1 BAG IVPB SCH (20:19)
--- NOTE | 2020-02-01 20:53 | EKG ---
Test Reason : STAT Blood Pressure : / mmHG Vent. Rate : 082 BPM Atrial Rate : 082 BPM P-R Int : 000 ms QRS Dur : 178 ms QT Int : 502 ms P-R-T Axes : 083 270 100 degrees QTc Int : 586 ms AV dual-paced rhythm with frequent ventricular-paced complexes Biventricular pacemaker detected Abnormal ECG When compared with ECG of 29-JAN-2020 18:49, (Unconfirmed) Premature atrial complexes are no longer Present Vent. rate has increased BY 4 BPM Confirmed by Layla RAI ([id number]) on 02/01/2020 8:52:59 PM Referred By: Confirmed By:Layla RAI
--- NOTE | 2020-02-01 20:53 | EKG ---
Test Reason : STAT Blood Pressure : / mmHG Vent. Rate : 088 BPM Atrial Rate : 088 BPM P-R Int : 000 ms QRS Dur : 184 ms QT Int : 498 ms P-R-T Axes : 092 265 100 degrees QTc Int : 602 ms AV dual-paced rhythm Biventricular pacemaker detected Abnormal ECG When compared with ECG of 29-JAN-2020 18:49, (Unconfirmed) Vent. rate has increased BY 6 BPM Confirmed by Layla RAI ([id number]) on 02/01/2020 8:53:02 PM Referred By: Confirmed By:Layla RAI
--- NOTE | 2020-02-01 20:53 | EKG ---
Test Reason : STAT Blood Pressure : / mmHG Vent. Rate : 078 BPM Atrial Rate : 078 BPM P-R Int : 000 ms QRS Dur : 180 ms QT Int : 506 ms P-R-T Axes : 060 -72 104 degrees QTc Int : 576 ms AV dual-paced rhythm with Premature atrial complexes Biventricular pacemaker detected Abnormal ECG When compared with ECG of 26-JAN-2020 13:42, Premature atrial complexes are now Present Vent. rate has increased BY 8 BPM Confirmed by Layla RAI ([id number]) on 02/01/2020 8:52:53 PM Referred By: Confirmed By:Layla RAI
--- NOTE | 2020-02-01 20:53 | EKG ---
Test Reason : STAT Blood Pressure : / mmHG Vent. Rate : 072 BPM Atrial Rate : 072 BPM P-R Int : 198 ms QRS Dur : 178 ms QT Int : 486 ms P-R-T Axes : 022 -76 062 degrees QTc Int : 532 ms Sinus rhythm with frequent AV dual-paced complexes Right bundle branch block Left anterior fascicular block Bifascicular block Abnormal ECG When compared with ECG of 29-JAN-2020 18:50, (Unconfirmed) Vent. rate has decreased BY 16 BPM Confirmed by Layla RAI ([id number]) on 02/01/2020 8:53:15 PM Referred By: Confirmed By:Layla RAI
[2020-02-02] MEDS: Milrinone Lactate/D5W 20 MG in Premix Bag 1 BAG IVPB SCH ×2 (00:45→14:55)
[2020-02-02 04:38] LABS: Phosphorus 2.9 mg/dL (2.3-4.7)
[2020-02-02] MEDS: Levothyroxine Sodium 25 MCG TAB PO SCH (05:46)
[2020-02-02] MEDS: Amiodarone 200 MG TAB PO SCH (08:41)
[2020-02-02] MEDS: Apixaban 2.5 MG TAB PO SCH ×2 (08:41→20:22)
[2020-02-02] MEDS: Doxycycline 100 MG CAP PO SCH (08:41)
[2020-02-02] MEDS: Aspirin Chewable 81 MG TAB PO SCH (08:41)
[2020-02-02] MEDS ORDERED: Furosemide 40 MG/4 ML VIAL SLOW IVP SCH (09:45)
[2020-02-02] MEDS: predniSONE 20 MG TAB PO SCH ×2 (09:55→20:23)
[2020-02-02] MEDS: guaiFENesin ER 600 MG TAB PO SCH ×2 (09:55→20:22)
[2020-02-02 10:19] LABS: Hemoglobin 9.4 g/dL (14.0-18.0); Mean Corpuscular HGB CONC 31.4 g/dL (32.0-36.0); Mean Corpuscular Hemoglobin 29.3 pg (27.0-31.0); Mean Corpuscular Volume 93.3 fL (78.0-98.0); Mean Platelet Volume 7.9 fL (7.4-10.4); Platelet Count 351 thou/uL (130-400); Red Blood Cell (RBC) Count 3.21 mill/uL (4.70-6.10); White Blood Cell (WBC) Count 15.4 thou/uL (4.8-10.8)
[2020-02-02 10:34] LABS: ALT (SGPT) 20 U/L (8-55); AST (SGOT) 15 U/L (5-34); Albumin 3.3 g/dL (3.4-4.8); Alkaline Phosphatase 57 U/L (40-110); Anion Gap 13 mmol/L (10-20); BUN (Urea Nitrogen) 19 mg/dL (8.4-25.7); Bilirubin, Total 0.9 mg/dL (0.2-1.2); Calc. Creatinine Clearance 55 mL/min (70-130); Calcium 8.5 mg/dL (7.8-10.44); Carbon Dioxide 27 mmol/L (23-31); Chloride 101 mmol/L (98-107); Estimated GFR-MDRD 56; Globulin 2.5 g/dL (2.4-3.5); Glucose 254 mg/dL (83-110); Magnesium 1.7 mg/dL (1.6-2.6); Potassium 3.5 mmol/L (3.5-5.1); Protein, Total 5.8 g/dL (5.8-8.1); Sodium 137 mmol/L (136-145)
--- NOTE | 2020-02-02 10:48 | PRG ---
DATE OF SERVICE: 02/02/2020 SUBJECTIVE: Mr. Rogers had a variable day and a bad night. During the day, he was diuresed with Lasix 40 mg IV twice a day. He had net negative greater than 1 L. He did breathe better somewhat. However, his cough has increased. He said he has been coughing up productive sputum. The amount of sputum production has increased and this was witnessed by the nurse. He says he coughed all night. This morning, he has a headache. He says finally this morning, he was able to get some rest. REVIEW OF SYSTEMS: GENERAL: He denies fever. HEENT: There is no change in vision, hearing, or swallowing. PULMONARY: Please see HPI. CARDIAC: There are no chest pains. No palpitations or syncope by patient's account. GI: He has felt nauseated. : He is on a Dougherty catheter. NEUROLOGIC: There are no new focal deficits or weaknesses. MUSCULOSKELETAL: He has back pain. INTEGUMENT: He has a chronic decubitus breakdown. MEDICATIONS: His current cardiac medications include: 1. Amiodarone 200 mg twice a day. 2. Apixaban, which is Eliquis 2.5 mg twice a day. 3. Dobutamine currently at 5 mcg/kg/minute. 4. Milrinone currently at 0.375 mcg/kg/minute. 5. Aspirin 81 mg daily. PHYSICAL EXAMINATION: Telemetry was reviewed. He has had paced rhythm. There are some PVCs. There are no concerning arrhythmias. There are no recurrence of torsades. CURRENT VITAL SIGNS: Heart rate 103, blood pressure 106/56. GENERAL: He is alert and conversational, but he coughs each time he is trying to talk. He was suctioning his mouth. His coughing is worse than yesterday. HEENT: EOMI. Oropharynx benign. NECK: His JVP is not well seen today. PULMONARY: There are coarse breath sounds. There is wheezing in bilateral lung. There seemed to be a diffuse inflammatory process. There are some bibasilar crackles, however, had coarse breath sounds and wheeze and poor air movement finding his way out of proportion than a cardiac cough. ABDOMEN: Soft, nontender. Positive bowel sounds. EXTREMITIES: His lower extremities are without edema. Positive dorsalis pedis pulses. LABORATORY DATA: There are no new labs this morning. The latest labs last night showed sodium 139, potassium 4.9, BUN 19, creatinine 1.31. ASSESSMENT: An 84-year-old gentleman has worsening pulmonary process. His cough is worse, out of proportion in contrast to diuresis. His lung finding is also in contrast to his cardiac performance. He is not tolerating milrinone. Milrinone is dropping blood pressure. Again, this is sign of inflammatory and/or infectious process. We will support what we can do from a cardiac perspective. 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 Please see the following for recommendations. RECOMMENDATIONS: 1. Decrease milrinone to 0.25 mcg/kg/minute, it may need to be turned off. 2. Keep dobutamine at 5 mcg/kg/minute if he needs to be, it can be increased. 3. His blood pressures start to drop even after the milrinone going off. We will need to reinitiate norepinephrine. 4. Do a noncontrast CT of his chest to look for inflammatory process or pneumonia. 5. Please do CBC with main differential, complete metabolic, and magnesium now. 6. Please ensure there are daily labs of CBC, BMP, BNP, and magnesium. This is needed to titrate his medications. We will ask for Infectious Disease consult to help us to solve this problem. I think we have missed something in the inflammatory site. It has been a pleasure taking care of Mr. Rogers. If you have any questions, please give me a call. Job ID: [id number] MTDD
--- NOTE | 2020-02-02 10:53 | CT ---
CT CHEST WITHOUT CONTRAST: Date: 02/02/2020 HISTORY: Cough and shortness of breath. COMPARISON: Radiograph of chest dated 02/01/2020. FINDINGS: Moderate bilateral layering pleural effusions with left apical capping. Compressive atelectasis in paras th lower lobes. Mild interstitial pulmonary edema. There is low grade alveolar edema right lower lobe along the hilum . Pulmonary venous congestion. There is a peripheral ground-glass opacity in the anterior segment of le ft upper lobe. There are some faint areas of ground-glass in the right upper lobe and right middle lo be. There is biliary gas in the left lobe of the liver. Heart size is enlarged. Moderate vascular calcifi cations of the aorta. 4.0 mm calculus intrapolar region of left kidney. No acute thoracic spine abnormality. Degenerative changes of the shoulders. No acute displaced rib fr acture. IMPRESSION: 1. Moderate bilateral pleural effusions with left apical capping and compressive atelectasis of the lung bases. 2. Mild background pulmonary edema with cardiomegaly, suggesting a component of mildly decompensated heart failure. 3. Nonobstructive interpolar left renal calculus. POS: HOME
[2020-02-02 10:58] LABS: Band 1 % (5-11); Hypochromia SLIGHT = 6-15 cells (100X) (0-5/hpf); Lymphocytes 4 % (21-51); MDiff Complete? YES; Monocytes 2 % (0-10); Myelocyte 3 % (0-0); Neutrophil 90 % (42-75); Platelet Morphology Comment Appears Adequate; Polychromasia SLIGHT = 2-3 cells (100X) (0-2/hpf)
[2020-02-02] MEDS: Insulin Regular 300 UNITS/3 ML VIAL SC PRN ×2 (11:12→16:24)
--- NOTE | 2020-02-02 11:57 | PDOC.HOSPP ---
- Subjective Encounter Date: 02/02/20 Encounter Time: 11:00 Subjective: CC: shortness of breath/back pain The patient states he feels worst today. He reports coughing up blood but per nurse there is not much blood. Had CT chest which showed some effusions and ground glass opacity. Got 40 mg IV lasix and steroids. Per Dr. Kimble, milrinone drip weaned down due to hypotension. the patient reports severe back pain, states that he wants steroid injection in his back and he is unable to move or get up in bed without assistance due to severe back pain. He says his last injection was with Dr. Decker - Objective Vital Signs & Weight: Vital Signs (12 hours) Temp Pulse Resp Pulse Ox 02/02/20 08:04 107 H 25 H 02/02/20 07:10 100 02/02/20 07:00 98.3 F 02/02/20 04:00 98.2 F 02/02/20 00:00 98.4 F Weight Admit Weight 172 lb Weight 188 lb 7.924 oz Most Recent Monitor Data Heart Rate from ECG 96 NIBP 92/51 NIBP BP-Mean 64 Respiration from ECG 22 SpO2 100 I&O: 02/01/20 02/02/20 02/03/20 06:59 06:59 06:59 Intake Total 1097.8 1235 0 Output Total 1691 2405 410 Balance -593.2 -1170 -410 Result Diagrams: 02/02/20 10:07 02/02/20 10:07 Additional Labs: Accuchecks 02/02/20 02/01/20 02/01/20 05:51 20:17 16:38 POC Glucose 137 H 140 H 143 H Hospitalist ROS - Review of Systems Constitutional: denies: fever, chills Respiratory: reports: pleuritic pain - Medication Medications: Active Medications Generic Name Dose Route Start Last Admin Trade Name Freq PRN Reason Stop Dose Admin Apixaban 2.5 mg 01/26/20 21:00 02/02/20 08:41 Eliquis PO 2.5 mg BID FUNMI Administration Aspirin 81 mg 01/27/20 09:00 02/02/20 08:41 Aspirin Chewable PO 81 mg DAILY FUNMI Administration Doxycycline Hyclate 100 mg 02/01/20 09:00 02/02/20 08:41 Vibramycin PO 02/12/20 09:01 100 mg BID FUNMI Administration Furosemide 40 mg 02/02/20 09:45 02/02/20 09:55 Lasix SLOW IVP 02/02/20 12:00 40 mg NOW FUNMI Administration Guaifenesin 200 mg 01/28/20 20:00 02/01/20 23:11 Organ-I Nr PO 200 mg Q4H PRN Administration Cough Guaifenesin 600 mg 02/02/20 09:00 02/02/20 09:55 Mucinex PO 600 mg Q12HR FUNMI Administration Dobutamine HCl/Dextrose 500 mg 250 mls @ 0 mls/hr 01/26/20 21:00 02/01/20 20: 19 / Device IVPB 250 mls INF FUNMI Administration Protocol As Directed Potassium Chloride 40 meq/ 100 mls @ 50 mls/hr 01/27/20 05:08 01/28/20 06:08 Device IVPB 100 mls ASDIR PRN Administration FOR SERUM K+ 2.5 - 3.5 Magnesium Sulfate 1 gm/ Sodium 102 mls @ 102 mls/hr 01/27/20 05:08 01/27/20 09:02 Chloride IV 102 mls PRN PRN Administration MAG LEVEL 1.4 - 2.0 Milrinone Lactate/Dextrose 20 100 mls @ 0 mls/hr 01/30/20 10:00 02/02/20 00: 45 mg/ Device IVPB 100 mls INF FUNMI Administration Protocol Titrate Insulin Glargine 19 units/ 0.19 mls @ 0 mls/hr 01/31/20 21:00 02/01/20 20:15 Miscellaneous Medication SC Not Given HS [facility] Insulin Human Regular 0 units 01/30/20 00:58 02/02/20 11:12 Humulin R SC 4 unit .MILD SLIDING SCALE PRN Administration Mild Correctional Scale Insulin Human Regular 0 units 01/30/20 00:58 01/30/20 21:37 Humulin R SC 3 unit .BEDTIME SLIDING SC PRN Administration Bedtime Correctional Scale Levothyroxine Sodium 25 mcg 01/28/20 06:00 02/02/20 05:46 Synthroid PO 25 mcg 0600 FUNMI Administration Pantoprazole Sodium 40 mg 02/02/20 09:00 02/02/20 08:41 Protonix PO 40 mg DAILY FUNMI Administration Potassium Chloride 20 meq 01/27/20 09:00 02/02/20 08:42 Klor-Con PO Not Given DAILY FUNMI Potassium Chloride 40 meq 01/27/20 05:08 01/27/20 21:30 Klor-Con PER TUBE 40 meq ASDIR PRN Administration FOR SERUM K+ 2.5-3.5 Prednisone 20 mg 02/02/20 09:00 02/02/20 09:55 Prednisone PO 20 mg BID FUNMI Administration Sertraline HCl 25 mg 01/27/20 09:00 02/02/20 08:41 Zoloft PO 25 mg DAILY FUNMI Administration Sodium Chloride 10 ml 01/27/20 23:26 02/01/20 20:17 Flush - Normal Saline IVF 10 ml PRN PRN Administration Saline Flush - Exam General Appearance: NAD, awake alert Eye: PERRL, anicteric sclera ENT: normocephalic atraumatic, no oropharyngeal lesions Neck: no JVD Heart: no murmur, no gallops, normal peripheral pulses Respiratory - other findings: bilateral crackles Gastrointestinal: soft, non-tender, non-distended Extremities: no cyanosis, no clubbing, no edema Skin: normal turgor, no lesions, no rashes Neurological: cranial nerve grossly intact, normal sensation to touch, no focal deficits, no new deficit Musculoskeletal - other findings: self reported back pain. REfuses to lift up legs due to back pain Psychiatric: normal affect, normal behavior Hosp A/P - Plan Chest X ray 01/29: multifocal pneumonia, cardiomegaly Chest xray 01/31: cardiomegaly. Improving interstitial alveolar opacities in the right perihilar location in right mid lung zone and right lung base. Persistent opacity left lung base possibly left pleural effusion vs pneumonia ECHO: moderate MR, moderate , severe TR, EF 40-45% CT chest 01/31: moderate bilateral pleural effusions with left apical ground glass opacity, RML and RLL ground glass opacity ' This is an 84 year old male with history of rheumatoid arthritis who presented with fever, hypotension, tachycardia, cough #Acute hypoxic respiratory failure secondary to septic shock secondary from multifocal pneumonia and acute systolic heart failure #COPD exacerbation #Moderate aortic stenosis and mitral regurgitation #Severe tricuspid regurgitation - s/p extubation, on 5L nasal cannula - Chest X ray 01/29 shows multifocal pneumonia. On IV levaquin and ceftriaxone since 01/25. Discontinued since completed five day course. Doxycycline added for hemoptysis by cardiology. Sputum culture growing gram negative rods, gram + cocci. CT chest showing pleural effusions + ground glass opacity. Will send EMILEE and ANCA - check procalcitonin, and respiratory viral panel and urine legionella. Flu negative, urine strep and COVID 19 negative. - blood cultures negative - was on IV steroids until 01/29. Restarted prednisone [address] Melton - milrinone drip weaned down. Still on dobutamine #Pacemaker s/p AICD #History of VT and Torsades - continue eliquis - will reduce amiodarone to 200 mg daily Type II Diabetes - HbA1C 6.8 - continue lantus to 19 units qhs today Anemia - Hb 9.3, stable Hypothyroidism -continue levothyroxine Code status: full code
--- NOTE | 2020-02-02 15:23 | PRG ---
DATE OF SERVICE: 02/02/2020 SUBJECTIVE: Donny Rogers remains in the ICU. He is complaining of cough and some shortness of breath, but no fever or chills. OBJECTIVE: VITAL SIGNS: Have been stable. His maximum temperature has been 98, respirations 24, saturations 100%, blood pressure 108/60. There are several different medication by his Cardiology. CHEST: Decreased breath sounds. No wheezing. Bilateral crackles. CARDIAC: Normal S1 and S2. ABDOMEN: No masses. LABORATORY DATA: White count 15,000 without left shift. X-ray shows left pleural effusion, nothing new. ASSESSMENT: 1. Respiratory failure, congestive heart failure, chronic obstructive pulmonary disease, left pleural effusion. 2. Severe deconditioning. PLAN: I have added home medication low-dose prednisone, neb treatment Dulera. He can probably be transitioned to a p.o. medication for his inotropic medication as per Cardiology. Continue doxycycline. Job ID: [id number]
--- NOTE | 2020-02-02 15:59 | CON ---
DATE OF CONSULTATION: 02/02/2020 REASON FOR CONSULTATION: Pneumonia versus CHF. HISTORY OF PRESENT ILLNESS: An 84-year-old, who has a history of ischemic cardiomyopathy, COPD, chronic atrial fibrillation, and rheumatoid arthritis previously on Humira, who has had numerous admissions in 2018 and 2019 for complications related to the above diagnoses. He has also had an AICD inserted. At this time, he presented with fever, hypotension, and gradual change in mental status for the previous 3 days before admission. He was having what the family described as visual hallucinations. He did have cough associated with the above symptoms as well. On arrival to the emergency room, his BP is 104/30, pulse 100 respirations 22, O2 saturation 87%. His initial temperature was 101.4. He was breathing at anywhere from 30 to 34. Respirations per minute. He appeared in distress in pain as well, and there was evidence of inspiratory crackles, which were scattered diffusely as well as rhonchi present to the right lower lobe. The heart examination showed regular rhythm and no murmurs identified as described in the admit ER note. Extremities, there was no described edema. He was oriented. Speech was normal. The other findings on admission included a white cell count of 14.5, hemoglobin 10.9, and platelets 473 with 3% bands, 87% neutrophils, 8% lymphocytes. The sodium was 138, creatinine 1.55. Lactic acid 2.4 and AST 40. Albumin 3.4. Urinalysis was normal, except for urobilinogen at 4. The patient had a COVID-19, PCR not detected on January 25. A Streptococcus pneumoniae antigen was not detected either. Influenza A and B were negative. Two sets of blood cultures were no growth in 5 days. Imaging studies showed a central line in the cavoatrial junction, stable elevation of left hemidiaphragm and stable pulmonary vascular congestion. The initial impression was sepsis secondary to pneumonia, hypoxia, respiratory failure. He was given ceftriaxone and Zithromax, and he was placed on COVID precautions. COVID test was negative as mentioned. Pulmonary Medicine and Cardiology were consulted on the second day following admission. The patient had to be intubated. He had some trauma in the Dougherty catheter and had some hematuria. The impression was then, COPD exacerbation, respiratory failure, hypovolemic shock. Levophed was discontinued. He was given ceftriaxone, levofloxacin, and IV corticosteroids. The third day, he was still on dobutamine and propofol. Still had alveolar infiltrates on the chest x-ray. On the fourth day, the situation was pretty much the same. There was a left lower lobe infiltrate, but no pulmonary congestion noted. The fifth day, he was still intubated, but was able to answer questions and follow commands. On the day, he was extubated and was placed on a nasal cannula. He still has some chest congestion and still with coughing spells. All the cultures were negative. The steroids were discontinued. The next day, the patient had some hemoptysis and dobutamine was weaned down to 5. Milrinone had been started and was continued. Chest x-ray showed multifocal pneumonia. A CT of chest was done today, the findings indicated moderate bilateral layering pleural effusions, compressive atelectasis, mild interstitial pulmonary edema. Pulmonary venous congestion noted and peripheral ground-glass opacity in the anterior segment of left upper lobe and some faint areas of ground-glass in the right upper lobe and right middle lobe. Currently, Mr. Rogers is awake. He is a little bit tachypneic. He did not cough much during the interview. He had denies headaches. Mild shortness of breath. No chest pain. No abdominal pain. He has an indwelling Dougherty catheter. PAST MEDICAL HISTORY: Includes ischemic cardiomyopathy, COPD, rheumatoid arthritis, prior cardiac bypass, gastric ulcers, hypertension, AICD placement. ALLERGIES: IODINE, PENICILLIN, AND STATINS. CURRENT MEDICATIONS: 1. DuoNeb. 2. Cordarone. 3. Eliquis. 4. Aspirin. 5. Dextrose. 6. Benadryl. 7. Dobutamine. 9. Glucagon. 10. Mucinex. 11. Insulin. 12. Synthroid. 13. Milrinone. 14. Levophed. 15. Protonix. 16. Prednisone. 17. Diprivan. 18. Zoloft. FAMILY HISTORY: Noncontributory. PHYSICAL EXAMINATION: VITAL SIGNS: The patient has been afebrile for the past many days, but he has been on the corticosteroids for most of the previous days. He is still on the corticosteroids 40 mg a day. SKIN: Shows area of bruising in the right gluteal region. He has a central line in the right IJ position. A Dougherty catheter. No lymphadenopathy. HEENT: Ocular movements conjugate. Sclerae white. Conjunctivae normal. Oral cavity with quite a few teeth in place with moderate decay and gum disease. No oral mucosal lesions. Some jugular vein distention. LUNGS: With bilateral coarse breath sounds with faint basilar crackles and scattered areas. HEART: S1 and S2 regular rate. ABDOMEN: Soft. Not distended or tender. No ascites. No bladder distention. No organomegaly. EXTREMITIES: The patient has quite a bit of tenderness in the lower back in the right knee. Trace edema, lower extremities. Pulses are 1+ in dorsalis pedis. Plantar responses are flexor. LABORATORY DATA: White cell count is 14.5, now is 9.7, hemoglobin 9.3, platelets 394, 84% neutrophils. Sodium is 142, creatinine is 1.25. Liver profile has normalized and albumin is 3.3. Urinalysis, greater than 50 wbc's. IMAGING STUDIES: Echocardiogram, EF at 40%-45%, moderately enlarged right ventricle cavity, moderate aortic stenosis, moderate aortic regurgitation, severe tricuspid regurgitation. ASSESSMENT: Ischemic cardiomyopathy; rheumatoid arthritis, on Humira; chronic obstructive pulmonary disease, new onset of cough with respiratory failure requiring intubation. The patient was extubated, and now he is currently on doxycycline and there is a concern that he might still have pneumonic process. He is saturated at 100 with 2 L nasal cannula. The repeat imaging study with a CT of chest showed some areas of ground-glass opacity, still a little bit of areas with pulmonary venous congestion and some interstitial edema. The white cell count seems to be improving. He still has some lymphocytopenia. DISCUSSION: The overall picture is consistent with initial viral infection, which seems to be improving and the initial COVID test was negative. The COVID test will have a false-negative rate of around 30%. He has evidence of ground-glass opacities in the CT scan, and I think we should submit a second test to make sure. In addition to that, we will submit a respiratory virus PCR. A bacterial pneumonia appears to be less likely in view of the improvement in the total white cell count and the findings in the latest CT of chest. We will go ahead and check his procalcitonin as well. Thromboembolism would be less of a concern since the patient is on Eliquis. Job ID: [id number] MTDD
[2020-02-02] MEDS ORDERED: cefTRIAXone\\ROCEPHIN 2 GM in Sodium Chloride 0.9% 100 ML IVPB SCH (18:00)
[2020-02-02] MEDS: DOBUTamine 500 mg/250 ml 500 MG in Premix Bag 1 BAG IVPB SCH (18:16)
[2020-02-02] MEDS: Mometasone 100 MCG/Formoterol 5 MCG 120 PUFF INHALER INH SCH (19:44)
[2020-02-02] MEDS: Albuterol 200 PUFF (6.7GM INHALER) INH SCH (19:46)
[2020-02-02] MEDS: Insulin Glargine 19 UNITS in Pre-Filled Syringe 1 EACH SC SCH (21:27)
[2020-02-03] MEDS: Albuterol 200 PUFF (6.7GM INHALER) INH SCH ×4 (00:47→18:18)
[2020-02-03 04:47] LABS: #Eosinphils 0.1 thou/uL (0.0-0.7); #Lymphocytes 0.5 thou/uL (1.20-3.40); #Monocytes 0.1 thou/uL (0.11-0.59); #Neutrophils 13.5 thou/uL (1.40-6.50); %Eosinophils 0.8 % (0.0-10.0); %Lymphocytes 3.7 % (21.0-51.0); %Monocytes 0.8 % (0.0-10.0); %Neutrophils 94.7 % (42.0-75.0); Hemoglobin 8.7 g/dL (14.0-18.0); Mean Corpuscular HGB CONC 31.6 g/dL (32.0-36.0); Mean Corpuscular Hemoglobin 29.4 pg (27.0-31.0); Mean Corpuscular Volume 93.1 fL (78.0-98.0); Mean Platelet Volume 8.3 fL (7.4-10.4); Platelet Count 316 thou/uL (130-400); RBC Distribution Width 17.1 % (11.5-14.5); Red Blood Cell (RBC) Count 2.94 mill/uL (4.70-6.10); White Blood Cell (WBC) Count 14.3 thou/uL (4.8-10.8)
[2020-02-03 05:12] LABS: Anion Gap 11 mmol/L (10-20); BUN (Urea Nitrogen) 18 mg/dL (8.4-25.7); Calc. Creatinine Clearance 67 mL/min (70-130); Calcium 8.7 mg/dL (7.8-10.44); Carbon Dioxide 30 mmol/L (23-31); Chloride 102 mmol/L (98-107); Estimated GFR-MDRD 71; Glucose 172 mg/dL (83-110); Magnesium 1.7 mg/dL (1.6-2.6); Potassium 3.8 mmol/L (3.5-5.1); Sodium 139 mmol/L (136-145)
[2020-02-03] MEDS: Mometasone 100 MCG/Formoterol 5 MCG 120 PUFF INHALER INH SCH ×2 (06:11→18:18)
[2020-02-03] MEDS: Levothyroxine Sodium 25 MCG TAB PO SCH (06:11)
[2020-02-03] MEDS: Insulin Regular 300 UNITS/3 ML VIAL SC PRN ×3 (08:00→17:05)
[2020-02-03] MEDS: Aspirin Chewable 81 MG TAB PO SCH (08:31)
[2020-02-03] MEDS: guaiFENesin ER 600 MG TAB PO SCH ×2 (08:31→20:59)
[2020-02-03] MEDS: Amiodarone 200 MG TAB PO SCH (08:31)
[2020-02-03] MEDS: predniSONE 20 MG TAB PO SCH ×2 (08:31→20:59)
[2020-02-03] MEDS: Apixaban 2.5 MG TAB PO SCH ×2 (08:35→21:00)
--- NOTE | 2020-02-03 08:53 | PRG ---
DATE OF SERVICE: SUBJECTIVE: This morning, he is awake, alert, and responsive. He is much better. Less short of breath. His cough is improved. OBJECTIVE: VITAL SIGNS: Saturations are 98% on room air, blood pressure , pulse 80, respiratory rate 16. CHEST: Decreased breath sounds. No wheezing. CARDIAC: Normal S1, S2. No gallops. ABDOMEN: No masses. LABORATORY DATA: Lytes are normal. His white count [id number]. ASSESSMENT: Bilateral pleural effusion secondary to congestive heart failure. I see no evidence of any pneumonia chronic obstructive pulmonary disease, congestive heart failure. PLAN: 1. I would switch him over to p.o. medication. 2. PT, supportive care. He can probably be transferred out of the ICU any time once his milrinone and Dobutrex were discontinued. Job ID: [id number]
[2020-02-03] MEDS: Doxycycline 100 MG CAP PO SCH ×2 (09:11→20:59)
[2020-02-03] MEDS ORDERED: Norepinephrine 8 MG in Sodium Chloride 0.9% 250 ML 242 ML IVPB SCH (10:30)
[2020-02-03] MEDS ORDERED: Norepinephrine 8 MG in Dextrose 5% in Water 242 ML IVPB SCH (10:30)
--- NOTE | 2020-02-03 11:23 | PDOC.HOSPP ---
- Subjective Encounter Date: 02/03/20 Encounter Time: 11:23 Subjective: The patient says he feels stronger today. Still has some cough and shortness of breath. No hemoptysis. No fevers or chills.. Patient hypotensive to 80 systolic, levofed is being added Still reports significant back pain with movement. Explained Dr. Decker cannot give steroid injection because it is elective procedure - Objective Vital Signs & Weight: Vital Signs (12 hours) Temp Pulse Resp Pulse Ox 02/03/20 07:17 94 L 02/03/20 07:00 97.9 F 02/03/20 06:11 94 22 H 100 02/03/20 04:00 98.6 F 02/03/20 00:00 98.4 F Weight Admit Weight 172 lb Weight 187 lb 13.341 oz Most Recent Monitor Data Heart Rate from ECG 96 NIBP 106/54 NIBP BP-Mean 71 Respiration from ECG 23 SpO2 100 I&O: 02/02/20 02/03/20 02/04/20 06:59 06:59 06:59 Intake Total 1235 775.7 50 Output Total 2405 1445 230 Balance -1170 -669.3 -180 Result Diagrams: 02/03/20 04:10 02/03/20 04:10 Additional Labs: Accuchecks 02/03/20 02/03/20 02/02/20 11:17 06:23 20:47 POC Glucose 158 H 170 H 216 H 02/02/20 15:35 POC Glucose 280 H Hospitalist ROS - Review of Systems Constitutional: denies: fever, chills ENT: denies: ear pain, ear discharge - Medication Medications: Active Medications Generic Name Dose Route Start Last Admin Trade Name Freq PRN Reason Stop Dose Admin Albuterol Sulfate 2 puff 02/02/20 19:00 02/03/20 07:28 Proventil Hfa INH Not Given C4BC-TD FUNMI Amiodarone HCl 200 mg 02/03/20 09:00 02/03/20 08:31 Cordarone PO 200 mg DAILY FUNMI Administration Apixaban 2.5 mg 01/26/20 21:00 02/03/20 08:35 Eliquis PO 2.5 mg BID FUNMI Administration Aspirin 81 mg 01/27/20 09:00 02/03/20 08:31 Aspirin Chewable PO 81 mg DAILY FUNMI Administration Doxycycline Hyclate 100 mg 02/03/20 09:00 02/03/20 09:11 Vibramycin PO 02/08/20 09:01 100 mg BID FUNMI Administration Guaifenesin 200 mg 01/28/20 20:00 02/01/20 23:11 Organ-I Nr PO 200 mg Q4H PRN Administration Cough Guaifenesin 600 mg 02/02/20 09:00 02/03/20 08:31 Mucinex PO 600 mg Q12HR FUNMI Administration Dobutamine HCl/Dextrose 500 mg 250 mls @ 0 mls/hr 01/26/20 21:00 02/02/20 18: 16 / Device IVPB 250 mls INF FUNMI Administration Protocol As Directed Potassium Chloride 40 meq/ 100 mls @ 50 mls/hr 01/27/20 05:08 01/28/20 06:08 Device IVPB 100 mls ASDIR PRN Administration FOR SERUM K+ 2.5 - 3.5 Magnesium Sulfate 1 gm/ Sodium 102 mls @ 102 mls/hr 01/27/20 05:08 01/27/20 09:02 Chloride IV 102 mls PRN PRN Administration MAG LEVEL 1.4 - 2.0 Insulin Glargine 19 units/ 0.19 mls @ 0 mls/hr 01/31/20 21:00 02/02/20 21:27 Miscellaneous Medication SC 0.19 mls HS FUNMI Administration Levofloxacin 500 mg/ Device 100 mls @ 100 mls/hr 02/02/20 20:00 02/02/20 20: 22 IVPB 100 mls 2000 FUNMI Administration Norepinephrine Bitartrate 8 mg 250 mls @ 0 mls/hr 02/03/20 10:30 02/03/20 10: 34 / Dextrose/Water IVPB 250 mls INF FUNMI Administration Protocol Titrate Insulin Human Regular 0 units 01/30/20 00:58 02/03/20 11:17 Humulin R SC 2 unit .MILD SLIDING SCALE PRN Administration Mild Correctional Scale Insulin Human Regular 0 units 01/30/20 00:58 01/30/20 21:37 Humulin R SC 3 unit .BEDTIME SLIDING SC PRN Administration Bedtime Correctional Scale Levothyroxine Sodium 25 mcg 01/28/20 06:00 02/03/20 06:11 Synthroid PO 25 mcg 0600 FUNMI Administration Magnesium Oxide 400 mg 01/27/20 05:08 02/03/20 06:11 Magnesium Oxide PO 400 mg BIDPRN PRN Administration FOR SERUM MAG 1.4 - 2.0 Mometasone Furoate/Formoterol Fumar 2 puff 02/02/20 18:30 02/03/20 06:11 Dulera 100 Mcg/5 Mcg Inhaler INH 2 puff BID-RT FUNMI Administration Pantoprazole Sodium 40 mg 02/02/20 09:00 02/03/20 08:31 Protonix PO 40 mg DAILY FUNMI Administration Potassium Chloride 20 meq 01/27/20 09:00 02/03/20 08:32 Klor-Con PO 20 meq DAILY FUNMI Administration Potassium Chloride 40 meq 01/27/20 05:08 01/27/20 21:30 Klor-Con PER TUBE 40 meq ASDIR PRN Administration FOR SERUM K+ 2.5-3.5 Prednisone 20 mg 02/02/20 09:00 02/03/20 08:31 Prednisone PO 20 mg BID FUNMI Administration Sertraline HCl 25 mg 01/27/20 09:00 02/03/20 08:31 Zoloft PO 25 mg DAILY FUNMI Administration Sodium Chloride 10 ml 01/27/20 23:26 02/01/20 20:17 Flush - Normal Saline IVF 10 ml PRN PRN Administration Saline Flush - Exam General Appearance: NAD, awake alert Eye: PERRL, anicteric sclera ENT: normocephalic atraumatic, no oropharyngeal lesions Neck: no JVD Heart: RRR, no gallops, no rubs. negative: no murmur Heart - other findings: RUL crackles Respiratory: CTAB, no wheezes, no rales, no ronchi Gastrointestinal: soft, non-tender, non-distended, normal bowel sounds Extremities: no cyanosis, no clubbing, no edema Skin: normal turgor, no lesions, no rashes Neurological: cranial nerve grossly intact, normal sensation to touch, no focal deficits, no new deficit Musculoskeletal: normal tone, normal strength, no muscle wasting Psychiatric: normal affect, normal behavior, A&O x 3, oriented to person Hosp A/P - Plan Chest X ray 01/29: multifocal pneumonia, cardiomegaly Chest xray 01/31: cardiomegaly. Improving interstitial alveolar opacities in the right perihilar location in right mid lung zone and right lung base. Persistent opacity left lung base possibly left pleural effusion vs pneumonia ECHO: moderate MR, moderate , severe TR, EF 40-45% CT chest 01/31: moderate bilateral pleural effusions with left apical ground glass opacity, RML and RLL ground glass opacity ' This is an 84 year old male with history of rheumatoid arthritis who presented with fever, hypotension, tachycardia, cough #Acute hypoxic respiratory failure secondary to septic shock secondary from multifocal pneumonia and acute systolic heart failure #COPD exacerbation #Moderate aortic stenosis and mitral regurgitation #Severe tricuspid regurgitation - s/p extubation, on 5L nasal cannula - Chest X ray 01/29 shows multifocal pneumonia. On IV levaquin and ceftriaxone since 01/25. Discontinued since completed five days. Restarted levaquin 02/01 per infectious disease recommendations. Will continue - continue doxycycline -procalcitonin negative. Pt reports history of rheumatoid arthritis on humira. No current joint swelling to suspect rheumatoid flare and improving with antibiotics - respiratory viral panel negative. Urine strep negative. COVID 19 negative, repeat sent -EMILEE, ANCA test pending - was on IV steroids until 01/29. Restarted prednisone [address] 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
[2020-02-03 11:38] LABS: ANA Symphony (Qualitative) Negative (Negative); ANA Symphony (Quantitative) 0.1 Ratio (< 0.7 Negative); dsDNA IgG Antibody 0.8 IU/mL (<10 Negative)
--- NOTE | 2020-02-03 13:59 | PRG ---
DATE OF SERVICE: 02/03/2020 Mr. Hines continues to have coughing spells. He says that he will cough up a large sputum globule. It could be brown. It could be dark. After he coughs up this large globule, he feels better, able to breathe for several hours. After that, he will have another coughing spell, then he will cough a larger sputum globule. After that, he is able to breathe better. He did receive Lasix 40 mg IV yesterday. He was net -670 mL. Prednisone was started for potential COPD exacerbation with asthma. He was visited by infectious disease doctor Dr. Austin Clements. The patient has a high suspicion for coronavirus with sensitivity only at 70%. The patient was retested for COVID-19. The patient had a spike in white blood cell count. The white blood cell count went from 10.6 to 11 to 15.4 with 90% neutrophils. This occured before the restart of prednisone. REVIEW OF SYSTEMS: GENERAL: The patient says that he is coughing, maybe feeling a little bit better, maybe not. HEENT: There is no change in vision, hearing or swallowing. PULMONARY: Please see HPI. CARDIOVASCULAR: There is no palpitation or syncope. GASTROINTESTINAL: He is able to eat a little bit. GENITOURINARY: He is on a Dougherty catheter. NEUROLOGIC: There is no focal deficit or weakness. MUSCULOSKELETAL: He does have low back pain. INTEGUMENT: He has decubitus breakdown. PHYSICAL EXAMINATION: VITAL SIGNS: His blood pressure has been dropping throughout the mornings. His last set of three blood pressure were 73/37, 87/53 and 86/48. His heart rate was tachycardic between 100-120. GENERAL: He is alert and conversational. HEENT: Show EOMI. OROPHARYNX: Benign with moist mucosa. NECK: JVP is roughly around 10 cm. PULMONARY: He has poor air movement in bilateral lungs. There is rhonchus in bilateral lungs. There are also wheeze in bilateral lungs. There is a slight right basilar crackle. He has a lot of air restriction disease, not much pulmonary edema. CARDIAC: Tachycardic with a 1/6 diastolic murmur at the right sternal border and also 2/6 holosystolic murmur at the apex with radiation to the left axilla. ABDOMEN: Distended, soft, nontender. There is no change. Positive bowel sounds. EXTREMITIES: Lower extremity are without edema. Positive dorsalis pedis bilaterally. LABORATORY DATA: White cell count decreased slightly from 15.4 down to 14.3, hemoglobin down to 8.7, platelet count is 316. % neutrophil is 94.7. His chemistry shows sodium 139, potassium 3.8, bicarbonate is 30, BUN 18, creatinine 1.01, and magnesium 1.7. ASSESSMENT: 84-year-old gentleman again is hypotensive from most likely an infectious cause. He has elevated white blood cell count. This occurred before the restart of prednisone. He is completely intolerant to milrinone. This is due to the milrinone inhibiting breakdown of excess cyclic GMP in the vascular smooth muscle. In septic situation, inducible iNOS will cause production of excess cyclic GMP. In turn, Increase in cyclic GMP will cause excessive vasodilation to drop his BP. He has continued to have productive cough. He was initially admitted with fever 101, and needing combination dobutamine of 5 mcg/kg/min and norepinephrine at 10 mcg/min to sustain blood pressure. He was then intubated. Broad-spectrum antibiotics including levofloxacin was used. He improved with antibiotic treatment, was eventually extubated. Norepinephrine was able to be titrated off and dobutamine was able to be titrated down and he was on his way to switch from dobutamine to milrinone for pulmonary support with eventual transition to oral medication. However, in the last 3 days he took a turn for the worse. His cough increased, his air movement in the lungs decreased and now he is hypotensive again. Thus he likely to have an unresolving or recurring infection that we currently do not have a good control. Please see the following for recommendation. Of note, there are multiple causes of pleural effusion including pneumonia and lung diseases. Pleural effusion occurs in severely decompensating heart failure with large pulmonary edema after a long period of decompensation. Mr. Rogers was not admitted for decompensating heart failure and has not shown decompensating heart failure throughout the admission. Rather, his low MAP as seen with low diastolic pressure is more likely due to infectious/inflammatory causes. Regardless, we will continue to attempt to keep his lungs as dry as possible. RECOMMENDATIONS: 1. Stop milrinone now. 2. Increase dobutamine to 7.5 mcg/kg per minute, temporarily. 3. Please add norepinephrine start at 2 mcg/min. 4. Titrate to keep MAP above 70. When patient can sustain a MAP of 70 you can first titrate off norepinephrine, then afterwards you can titrate down dobutamine. Keep dobutamine at 5 mcg/kg/min. He has proven that he needs this. He had left ventricular ejection fraction of 50% before the start of illness. With current illness, his ejection fraction did go down to 35% and this EF of 35% was measured in terms of while being on dobutamine. 5. I will come back, re-examine the patient again to see if he needs IV diuretics. First, we need to get control of his blood pressure and sustain cardiac output. 6. I will defer to Dr. Austin Clements for management of antibiotics and potential any antiviral as needed. It has been a pleasure taking care of Mr. Donny Rogers. If you have a question please give me a call. Job ID: [id number] MTDD
[2020-02-03] MEDS: DOBUTamine 500 mg/250 ml 500 MG in Premix Bag 1 BAG IVPB SCH (15:12)
[2020-02-03] MEDS ORDERED: Furosemide 40 MG/4 ML VIAL SLOW IVP SCH (17:45)
--- NOTE | 2020-02-03 18:38 | PRG ---
DATE OF SERVICE: SUBJECTIVE: Mr. Rogers is in the ICU, feels stronger. Some cough and dyspnea. Levophed was added because of hypotension. Some back pain. OBJECTIVE: VITAL SIGNS: His BP is now 150/70, temperature still normal at 98.6 max, respiratory rate 22, and O2 saturation 100. GENERAL: He is awake and alert. LUNGS: Symmetric air entry with basilar crackles. HEART: S1, S2. Regular rate. ABDOMEN: Soft, not distended. Indwelling Dougherty catheter. I's and O's have been negative anywhere from -90 to -1100 for the past few days. LABORATORY DATA: White cell count is 14.3, hemoglobin 8.7, platelets 316, and 94% neutrophils. Creatinine 1.01. Liver profile normal. Albumin 3.3. Repeat COVID test is pending. ASSESSMENT AND DISCUSSION: 1. Ischemic cardiomyopathy. 2. Rheumatoid arthritis, on Humira. 3. Chronic obstructive pulmonary disease. 4. New onset of cough, respiratory failure requiring intubation and then extubation. Concern about pneumonic process, possible viral in nature. The patient has developed some hypotension. Levophed has been added. A CT of chest showed some areas of ground-glass opacity and a second COVID test has been submitted to verify the first one in view of his pretest likelihood of having the disease plus the low sensitivity of the test itself. Job ID: [id number]
[2020-02-03] MEDS: Gabapentin 300 MG CAP PO SCH (20:59)
[2020-02-03] MEDS: Insulin Glargine 19 UNITS in Pre-Filled Syringe 1 EACH SC SCH (21:45)
[2020-02-04] MEDS: Albuterol 200 PUFF (6.7GM INHALER) INH SCH ×4 (01:02→19:27)
[2020-02-04 05:26] LABS: #Lymphocytes 0.4 thou/uL (1.20-3.40); #Monocytes 0.3 thou/uL (0.11-0.59); #Neutrophils 8.8 thou/uL (1.40-6.50); %Eosinophils 0.3 % (0.0-10.0); %Lymphocytes 4.4 % (21.0-51.0); %Monocytes 2.6 % (0.0-10.0); %Neutrophils 92.7 % (42.0-75.0); Mean Corpuscular HGB CONC 32.1 g/dL (32.0-36.0); Mean Corpuscular Hemoglobin 29.8 pg (27.0-31.0); Mean Corpuscular Volume 92.9 fL (78.0-98.0); Mean Platelet Volume 8.1 fL (7.4-10.4); Platelet Count 308 thou/uL (130-400); RBC Distribution Width 16.9 % (11.5-14.5); Red Blood Cell (RBC) Count 3.02 mill/uL (4.70-6.10); White Blood Cell (WBC) Count 9.5 thou/uL (4.8-10.8)
[2020-02-04] MEDS: Mometasone 100 MCG/Formoterol 5 MCG 120 PUFF INHALER INH SCH ×2 (05:46→19:24)
[2020-02-04] MEDS: Levothyroxine Sodium 25 MCG TAB PO SCH (05:46)
[2020-02-04 05:49] LABS: Anion Gap 11 mmol/L (10-20); BUN (Urea Nitrogen) 19 mg/dL (8.4-25.7); Calc. Creatinine Clearance 68 mL/min (70-130); Calcium 8.7 mg/dL (7.8-10.44); Carbon Dioxide 30 mmol/L (23-31); Chloride 101 mmol/L (98-107); Estimated GFR-MDRD 72; Glucose 164 mg/dL (83-110); Sodium 138 mmol/L (136-145)
[2020-02-04] MEDS: Insulin Regular 300 UNITS/3 ML VIAL SC PRN ×3 (06:51→20:30)
[2020-02-04] MEDS: Amiodarone 200 MG TAB PO SCH (07:55)
[2020-02-04] MEDS: Apixaban 2.5 MG TAB PO SCH ×2 (07:55→20:19)
[2020-02-04] MEDS: guaiFENesin ER 600 MG TAB PO SCH ×2 (07:55→20:19)
[2020-02-04] MEDS: Gabapentin 300 MG CAP PO SCH ×2 (07:55→20:19)
[2020-02-04] MEDS: Aspirin Chewable 81 MG TAB PO SCH (07:55)
[2020-02-04] MEDS: predniSONE 20 MG TAB PO SCH (07:55)
--- NOTE | 2020-02-04 07:57 | RAD ---
EXAM: Portable chest PROVIDED CLINICAL HISTORY: Respiratory insufficiency COMPARISON: 02/01/2020 FINDINGS: Significant interval change with respect to the prior examination is not apparent. IMPRESSION: As above.
[2020-02-04] MEDS: Doxycycline 100 MG CAP PO SCH ×2 (07:58→21:28)
[2020-02-04] MEDS ORDERED: Furosemide 20 MG/2 ML VIAL SLOW IVP SCH ×2 (09:15→22:30)
--- NOTE | 2020-02-04 09:33 | PRG ---
DATE OF SERVICE: 02/04/2020 Donny Rogers this morning is awake, alert, and responsive. Pulse 89, blood pressure . Job ID: [id number]
--- NOTE | 2020-02-04 10:33 | PRG ---
DATE OF SERVICE: 02/04/2020 SUBJECTIVE: This morning, the patient is doing well. OBJECTIVE: VITAL SIGNS: Temperature is only 98, blood pressure 143/48, saturations are 98% on 2 L, respiratory rate 18. CHEST: No wheezing or crackles. CARDIAC: Normal S1 and S2. No gallops. ABDOMEN: No masses. IMAGING STUDIES: X-ray shows left pleural effusion. LABORATORY DATA: His lab was totally unremarkable, still awaiting his new COVID-19 serology tests. IMPRESSION: 1. Congestive heart failure, left pleural effusion. 2. No evidence of pneumonia with his chronic obstructive pulmonary disease exacerbation. PLAN: Pulmonary decker, decrease steroids. Once his drips have been discontinued, he can be transferred to a Telemetry Unit. Job ID: [id number]
--- NOTE | 2020-02-04 11:15 | PRG ---
DATE OF SERVICE: 02/04/2020 SUBJECTIVE: Mr. Donny Rogers had a variable day but he improved throughout. In the morning, he had hypotension with systolic blood pressure dropped down to lower at 76. Increasing dobutamine to 7.5 mcg/kg/minute and then addition of 2 mcg/ minute of norepinephrine brought the pressure back up. This also includes stopping of milrinone. He also received a second dose of levofloxacin. The combination seems to have helped. Throughout the day, his norepinephrine was able to be brought down. Eventually, norepinephrine was able to be weaned out completely overnight. He continued to improve overnight and dobutamine was able to be titrated down also. This morning, he says he has been feeling better and breathing easier, coughing a lot less. Of the new complaint he has, he believes he passed a kidney stone because of some pain and also pain in the Dougherty and there was some bloody urine, so this will be consistent with passing of a kidney stone. He said this is similar to what he had done before. REVIEW OF SYSTEMS: GENERAL: He is more energetic and feels better today. HEENT: There is no change in hearing, vision, or swallowing. PULMONARY: See HPI. He is breathing better. CARDIOVASCULAR: There are no issues. No palpitations. No syncope. No chest pain. ABDOMEN: He is able to eat some. He says the abdomen feels better too. He was having quite a bit of abdominal abscess for last several days but he did not verbalize that well before but today he says his abdomen feels much better. : See HPI. NEUROLOGIC: He has chronic back pain, but there are no focal deficits or weakness. MUSCULOSKELETAL: Again, back pain. INTEGUMENT: Again, he has decubitus. MEDICATIONS: His cardiac medications include, 1. Amiodarone 200 mg daily. 2. Dobutamine 1 mcg/kg/minute right now. 3. Apixaban, which is Eliquis 2.5 mg b.i.d. 4. Electrolytes supplementation protocol. PHYSICAL EXAMINATION: VITAL SIGNS: Telemetry review is mainly A sensed V paced or A paced V paced rhythm, paced rate about 80. There are some PVCs, but there are no concerning arrhythmias. His latest vitals are heart rate paced at 80, blood pressure 127/61 with dobutamine at 2 mcg/kg/minute IV GTT. GENERAL: He is alert and conversational. HEENT: EOMI. Oropharynx benign without erythema. No exudate. Mucosa is moist. NECK: JVP is about 10 cm below. PULMONARY: He has much better air movement bilaterally. Good wheezes. Rhonchi have diminished much since yesterday. There are still right basilar crackles than the left. ABDOMEN: Soft, nontender. Positive bowel sounds. EXTREMITIES: Lower extremities are without edema. Positive dorsalis pedis pulses bilaterally. LABORATORY DATA: His laboratory value shows white cell count decreased from 14.3 down to 9.5. Hemoglobin is stable at 9 and platelet count at 308. His chemistry; sodium 138, potassium 4, chloride 101, bicarbonate was 30, BUN 99, creatinine 0.99. Chest CAT scan was done this morning and reviewed. It shows cardiomegaly, it is chronic; however, the left costophrenic angle is not clear. This could be pleural effusion that is chronic. Most importantly, there is diffuse patchy infiltrate with reticulonodular patterns bilaterally. These are not consistent with pulmonary edema. ASSESSMENT: 84-year-old gentleman is improving, he seem to be recovering from second round of infectious or continuation of primary pneumonia like process. With two doses of levofloxacin, he has improved hemodynamics significantly. Norepinephrine was able to be titrated off. Dobutamine now is down to the minimum dose. He is breathing easier. His white cell count also came down to 9.5. These are all excellent signs. Perhaps, we have turned the corner on the pulmonary process. In the meantime, we will maintain his lungs dry as possible as much and augment cardiac output to support this acute situation. Please see the following for detailed recommendations. RECOMMENDATIONS: 1. Keep dobutamine at 2 mcg/kg/minute for now. 2. Please give small dose of Lasix 20 mg IV now, this will help to keep the lungs dry. 3. Please do UA and also urine culture. 4. Please supplement to make sure his potassium is at least 4 and magnesium is 2. He does have a history of torsade, so we wanted to keep this from happening. 5. I will come back by this afternoon or early evening to examine him again to see his hemodynamics status. 6. We will defer antimicrobials, antibiotics to Dr. Clements. I appreciate his help in this matter. It has been a pleasure taking care of Mr. Donny Rogers. If you have any questions, please give me a call. Job ID: [id number]
[2020-02-04 11:20] LABS: Bilirubin Small (Negative); Blood, Urine Large (Negative); Clarity Cloudy (Clear); Glucose, Urine (Dipstick) Negative (Negative); Leukocyte Trace (Negative); Nitrite Negative (Negative); Protein, Urine (Dipstick) 100 mg/dL (Neg-Trace); Urobilinogen 0.2 mg/dL (Less than 2)
[2020-02-04 11:29] LABS: RBC/HPF Greater than 50 HPF (0-3); Squamous Epithelial 0-3 HPF (0-3); WBC/HPF 0-3 HPF (0-3)
[2020-02-04 11:30] LABS: Bacteria/HPF None Seen HPF (None Seen)
--- NOTE | 2020-02-04 15:01 | PDOC.EVN ---
Event Note - Event Note Event Note: THe patient states he is doing better. He was able to get up in a chair today. He has less cough and less shortness of breath. Repeat COVID testing still pending. Patient still complains of his back pain DUE To COVID testing still pending and since pulmonary have rounded, saw patient from a distance. Dobutamine has been weaned down per nursing. Levofed is off Gen: patient appears comfortable sitting up in bed CVS: not tachycardic Lungs: clear per nursing Abdomen: not distended Extremities: no edema visible #Acute hypoxic respiratory failure secondary to septic shock secondary from multifocal pneumonia and acute systolic heart failure #COPD exacerbation #Moderate aortic stenosis and mitral regurgitation #Severe tricuspid regurgitation - s/p extubation, on 5L nasal cannula - Chest X ray 01/29 shows multifocal pneumonia. On IV levaquin and ceftriaxone since 01/03. Discontinued then restarted levaquin 02/01 per infectious disease recommendations. Will continue - continue doxycycline day 12/09 -procalcitonin negative, EMILEE negative, ANCA pending, urine strep negative - prednisone weaned to [address] Melton - weaning off dobutamine. 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
[2020-02-04] MEDS: Insulin Glargine 19 UNITS in Pre-Filled Syringe 1 EACH SC SCH (20:30)
[2020-02-05] MEDS: Albuterol 200 PUFF (6.7GM INHALER) INH SCH ×5 (00:42→23:45)
[2020-02-05] MEDS: Levothyroxine Sodium 25 MCG TAB PO SCH (05:37)
[2020-02-05] MEDS: Mometasone 100 MCG/Formoterol 5 MCG 120 PUFF INHALER INH SCH ×2 (07:49→18:19)
[2020-02-05] MEDS: Amiodarone 200 MG TAB PO SCH (08:03)
[2020-02-05] MEDS: predniSONE 20 MG TAB PO SCH (08:03)
[2020-02-05] MEDS: guaiFENesin ER 600 MG TAB PO SCH ×2 (08:03→21:26)
[2020-02-05] MEDS: Apixaban 2.5 MG TAB PO SCH ×2 (08:03→21:26)
[2020-02-05] MEDS: Gabapentin 300 MG CAP PO SCH ×2 (08:03→21:26)
[2020-02-05] MEDS: Aspirin Chewable 81 MG TAB PO SCH (08:03)
--- NOTE | 2020-02-05 08:43 | PRG ---
DATE OF SERVICE: 02/05/2020 SUBJECTIVE: This gentleman is doing well. Awake and responsive. No cough. No shortness of breath. No fever. OBJECTIVE: VITAL SIGNS: Temperature 98, pulse , blood pressure 90/56, and respiratory rate 18. I's and O's consistently negative. CHEST: Decreased breath sounds, no wheezing. CARDIAC: Normal S1 and S2. ASSESSMENT: Chronic obstructive pulmonary disease exacerbation, bronchitis, and congestive heart failure. PLAN: Continue present treatment. Pulmonary will follow while in the ICU. Nothing additional to offer at this time. Job ID: [id number]
[2020-02-05] MEDS: Doxycycline 100 MG CAP PO SCH (08:51)
[2020-02-05 08:54] LABS: Anion Gap 12 mmol/L (10-20); BUN (Urea Nitrogen) 27 mg/dL (8.4-25.7); Calc. Creatinine Clearance 61 mL/min (70-130); Calcium 9.2 mg/dL (7.8-10.44); Carbon Dioxide 29 mmol/L (23-31); Chloride 101 mmol/L (98-107); Estimated GFR-MDRD 65; Glucose 147 mg/dL (83-110); Potassium 3.5 mmol/L (3.5-5.1); Sodium 138 mmol/L (136-145)
[2020-02-05] MEDS ORDERED: Torsemide 20 MG TAB PO SCH (09:00)
[2020-02-05] MEDS ORDERED: Magnesium Oxide 400 MG TAB PO SCH (09:45)
[2020-02-05] MEDS ORDERED: Potassium Chloride 40 MEQ in Premix Bag 1 BAG IVPB SCH (09:45)
[2020-02-05 10:12] LABS: Hemoglobin 9.6 g/dL (14.0-18.0); Mean Corpuscular HGB CONC 31.1 g/dL (32.0-36.0); Mean Corpuscular Hemoglobin 29.3 pg (27.0-31.0); Mean Corpuscular Volume 94.2 fL (78.0-98.0); Mean Platelet Volume 7.2 fL (7.4-10.4); Platelet Count 344 thou/uL (130-400); Red Blood Cell (RBC) Count 3.26 mill/uL (4.70-6.10); White Blood Cell (WBC) Count 10.3 thou/uL (4.8-10.8)
--- NOTE | 2020-02-05 10:45 | PRG ---
DATE OF SERVICE: 02/05/2020 SUBJECTIVE: Mr. Rogers had a pretty good day. He said his coughing has decreased. He is able to actually stand up a little bit. He is able to eat. He is now complaining of back pain and constipation. REVIEW OF SYSTEMS: GENERAL: He is a little bit stronger. He does not complain of fever. HEENT: There is no change in vision, hearing, or swallowing. PULMONARY: See HPI. CARDIAC: There is no palpitations, syncope, or chest pains. GI: Please see HPI. : He has a Dougherty and he thinks that he is passing kidney stones. NEUROLOGIC: There is no focal deficit or weaknesses. MUSCULOSKELETAL: Complains of back pain. INTEGUMENT: He has a chronic decubitus ulcer. MEDICATIONS: The current cardiac medications consists of 1. Amiodarone 200 mg daily. 2. Apixaban 2.5 mg twice a day. 3. Dobutamine at 2 mcg/kg/minute. 4. Torsemide 20 mg p.o. daily was given an hour ago. 5. Aspirin 81 mg day daily. 6. Apparently, he is on levofloxacin 500 mg daily. 7. He is on potassium at 20 mEq daily. PHYSICAL EXAMINATION: Telemetry shows that he is A paced, V paced at 80. He has more frequent PVCs, but there is no ventricular tachycardia. VITAL SIGNS: Heart rate 83, blood pressure 114/65. GENERAL: He is alert, conversational, sitting comfortably in chair. He is talking, little bit short of breath, but not terribly so. HEENT: EOMI. Oropharynx is benign. NECK: He has a right line in place. His JVP is roughly about 10 cm. PULMONARY: There is diffuse bilateral wheezing in the upper lung akers. There are right basilar crackles. CARDIAC: There is 2/6 diastolic murmur in the right sternal border. There is also 2/6 holosystolic murmur at the apex with radiation to the left axilla. ABDOMEN: Soft, nontender, distended. Positive bowel sounds. EXTREMITIES: He has been sitting in a chair for a while. He is having some about 1+ edema from his feet to just above his ankles. LABORATORY DATA: Sodium 138, potassium 3.8, BUN of 27, and creatinine 1.08. ASSESSMENT: 84-year-old gentleman is recovering from primary pulmonary cause. This could have been pneumonia, but unclear cause, probably chronic obstructive pulmonary disease exacerbation also contributed. As documented by echocardiogram, pulmonary stress has decreased cardiac function. Although he is much better, he is still showing evidence of vasodilation. Normally he is hypertensive. Right now he is requiring inotrope augmentation just to keep in normotensive range. We will need to continue to support him on inotrope until he has regained his normal blood pressure. At that time, we will be able to reinstitute heart failure medication. Heart failure medication will vasodilate him, increase the risk of renal injury, and interfere with pulmonary condition, so it has to be reintroduced slowly and as patient tolerates it. For now, we will continue with the dobutamine support and see if torsemide will suffice. If not , we will go back to low-dose IV Lasix. Furthermore, he has a history of torsades and ventricular tachycardia. So, keeping the electrolytes at normal range is very important for him. Finally, it seems like that he did respond very well to levofloxacin. We will defer to Dr. Clements to manage his antimicrobials. RECOMMENDATIONS: 1. Keep dobutamine at 2 mcg/kg/minute. May titrate up as needed. 2. Please give potassium 40 mEq by IV now. 3. Please increase his frequency of potassium of 20 mEq to twice a day. 4. Please provide magnesium oxide at 800 mg twice a day. We will need to keep magnesium above 2 as much as possible. 5. Please keep potassium above 4 and magnesium above 2 to prevent recurrence of torsades. 6. I will come back later on this afternoon to assess the volume status to see if the torsemide 20 is sufficient or not. If 20 of torsemide is insufficient, we will give another dose of IV Lasix. Of note, normally, he is hypertensive as outpatient and requires diuretics. I suspect that he will always need the diuretics. At this point, we just need to find out the dosage in the form that would fit him. It has been a pleasure of taking care of Mr. Donny Rogers. If any question, please give me a call. Job ID: [id number] MTDD
[2020-02-05 10:49] LABS: Band 1 % (5-11); Eosinophils 1 % (0-10); Lymphocytes 14 % (21-51); MDiff Complete? YES; Monocytes 6 % (0-10); Neutrophil 78 % (42-75); Platelet Morphology Comment Appears Adequate; Polychromasia SLIGHT = 2-3 cells (100X) (0-2/hpf)
--- NOTE | 2020-02-05 11:19 | PDOC.HOSPP ---
- Subjective Encounter Date: 02/05/20 Encounter Time: 10:00 Subjective: The patient is doing much better. His cough and shortness of breath has improved. He was able to walk some with the walker with PT. His back still hurts, but understands they are not doing steroid injections Repeat COVID test negative He is still on dobutamine - Objective Vital Signs & Weight: Vital Signs (12 hours) Temp Pulse Ox 02/05/20 08:00 97.9 F 98 02/05/20 04:00 98.4 F 02/05/20 00:00 98.4 F Weight Admit Weight 172 lb Weight 182 lb 8.684 oz Most Recent Monitor Data Heart Rate from ECG 84 NIBP 134/86 NIBP BP-Mean 102 Respiration from ECG 29 SpO2 100 I&O: 02/04/20 02/05/20 02/06/20 06:59 06:59 06:59 Intake Total 708.5 1257 120 Output Total 1750 1705 365 Balance -1041.5 -448 -245 Result Diagrams: 02/05/20 09:59 02/05/20 08:15 Additional Labs: Accuchecks 02/05/20 02/04/20 02/04/20 06:21 20:32 15:59 POC Glucose 118 H 290 H 217 H 02/04/20 12:14 POC Glucose 147 H Hospitalist ROS - Review of Systems Constitutional: denies: fever, chills - Medication Medications: Active Medications Generic Name Dose Route Start Last Admin Trade Name Freq PRN Reason Stop Dose Admin Albuterol Sulfate 2 puff 02/02/20 19:00 02/05/20 07:50 Proventil Hfa INH 2 puff [id number] FUNMI Administration Amiodarone HCl 200 mg 02/03/20 09:00 02/05/20 08:03 Cordarone PO 200 mg DAILY FUNMI Administration Apixaban 2.5 mg 01/26/20 21:00 02/05/20 08:03 Eliquis PO 2.5 mg BID FUNMI Administration Aspirin 81 mg 01/27/20 09:00 02/05/20 08:03 Aspirin Chewable PO 81 mg DAILY FUNMI Administration Gabapentin 300 mg 02/03/20 21:00 02/05/20 08:03 Neurontin PO 300 mg BID FUNMI Administration Guaifenesin 200 mg 01/28/20 20:00 02/01/20 23:11 Organ-I Nr PO 200 mg Q4H PRN Administration Cough Guaifenesin 600 mg 02/02/20 09:00 02/05/20 08:03 Mucinex PO 600 mg Q12HR FUNMI Administration Dobutamine HCl/Dextrose 500 mg 250 mls @ 0 mls/hr 01/26/20 21:00 02/03/20 15: 12 / Device IVPB 250 mls INF FUNMI Administration Protocol As Directed Potassium Chloride 40 meq/ 100 mls @ 50 mls/hr 01/27/20 05:08 01/28/20 06:08 Device IVPB 100 mls ASDIR PRN Administration FOR SERUM K+ 2.5 - 3.5 Magnesium Sulfate 1 gm/ Sodium 102 mls @ 102 mls/hr 01/27/20 05:08 01/27/20 09:02 Chloride IV 102 mls PRN PRN Administration MAG LEVEL 1.4 - 2.0 Insulin Glargine 19 units/ 0.19 mls @ 0 mls/hr 01/31/20 21:00 02/04/20 20:30 Miscellaneous Medication SC 0.19 mls HS FUNMI Administration Levofloxacin 500 mg/ Device 100 mls @ 100 mls/hr 02/04/20 21:00 02/04/20 20: 19 IVPB 100 mls 2100 FUNMI Administration Potassium Chloride 40 meq/ 100 mls @ 25 mls/hr 02/05/20 09:45 02/05/20 10:12 Device IVPB 02/05/20 14:00 100 mls NOW FUNMI Administration Insulin Human Regular 0 units 01/30/20 00:58 02/04/20 16:18 Humulin R SC 3 unit .MILD SLIDING SCALE PRN Administration Mild Correctional Scale Insulin Human Regular 0 units 01/30/20 00:58 02/04/20 20:30 Humulin R SC 3 unit .BEDTIME SLIDING SC PRN Administration Bedtime Correctional Scale Levothyroxine Sodium 25 mcg 01/28/20 06:00 02/05/20 05:37 Synthroid PO 25 mcg 0600 FUNMI Administration Magnesium Oxide 400 mg 01/27/20 05:08 02/03/20 06:11 Magnesium Oxide PO 400 mg BIDPRN PRN Administration FOR SERUM MAG 1.4 - 2.0 Magnesium Oxide 800 mg 02/05/20 09:45 02/05/20 10:11 Magnesium Oxide PO 02/05/20 12:00 800 mg NOW FUNMI Administration Mometasone Furoate/Formoterol Fumar 2 puff 02/02/20 18:30 02/05/20 07:49 Dulera 100 Mcg/5 Mcg Inhaler INH 2 puff BID-RT FUNMI Administration Pantoprazole Sodium 40 mg 02/02/20 09:00 02/05/20 08:04 Protonix PO 40 mg DAILY FUNMI Administration Potassium Chloride 40 meq 01/27/20 05:08 01/27/20 21:30 Klor-Con PER TUBE 40 meq ASDIR PRN Administration FOR SERUM K+ 2.5-3.5 Prednisone 20 mg 02/05/20 09:00 02/05/20 08:03 Prednisone PO 02/10/20 09:01 20 mg DAILY FUNMI Administration Sertraline HCl 25 mg 01/27/20 09:00 02/05/20 08:03 Zoloft PO 25 mg DAILY FUNMI Administration Sodium Chloride 10 ml 01/27/20 23:26 02/01/20 20:17 Flush - Normal Saline IVF 10 ml PRN PRN Administration Saline Flush Torsemide 20 mg 02/05/20 09:00 02/05/20 08:04 Demadex PO 20 mg DAILY FUNMI Administration - Exam General Appearance: NAD, awake alert Eye: PERRL, anicteric sclera ENT: normocephalic atraumatic, no oropharyngeal lesions Neck: supple, symmetric, no JVD Heart: RRR, no murmur, diminshed peripheral pulses Respiratory - other findings: mild crackles at the bases Gastrointestinal: soft, non-tender, non-distended Extremities: no cyanosis, no clubbing, no edema Hosp A/P - Plan Chest X ray 01/29: multifocal pneumonia, cardiomegaly Chest xray 01/31: cardiomegaly. Improving interstitial alveolar opacities in the right perihilar location in right mid lung zone and right lung base. Persistent opacity left lung base possibly left pleural effusion vs pneumonia ECHO: moderate MR, moderate , severe TR, EF 40-45% CT chest 01/31: moderate bilateral pleural effusions with left apical ground glass opacity, RML and RLL ground glass opacity ' This is an 84 year old male with history of rheumatoid arthritis who presented with fever, hypotension, tachycardia, cough #Acute hypoxic respiratory failure secondary to septic shock secondary from multifocal pneumonia and acute systolic heart failure #COPD exacerbation #Moderate aortic stenosis and mitral regurgitation #Severe tricuspid regurgitation - s/p extubation, on 5L nasal cannula - Chest X ray 01/29 shows multifocal pneumonia. Was on IV levaquin and ceftriaxone for five days, then restarted levaquin 02/01 per infectious disease recommendations due to hypotension and leukocytosis and additional pressor requirement - doxycycline discontinued by pulmonary 02/04 - procalcitonin negative. EMILEE negative, ANCA test pending - COVID negative x 2 - on oral prednisone until 02/09 by pulmonary for COPD exacerbation - regarding heart failure, continue dobutamine at 2 mcg/kg minute. S/p torsemide 20 mg, possibly give another dose of IV lasix this afternoon Back pain - secondary to DJD - continue gabapentin 300 mg bid - oxycodone prn for severe pain #Pacemaker s/p AICD #History of VT and Torsades - continue eliquis - continue amiodarone to 200 mg daily Type II Diabetes - HbA1C 6.8 - continue lantus t19 units qhs today Anemia -stable Hypothyroidism -continue levothyroxine Code status: full code
[2020-02-05] MEDS ORDERED: Potassium Chloride 20 MEQ TAB PO SCH (11:30)
[2020-02-05 14:37] LABS: Cytoplasmic (C-ANCA) <1:20 titer (Neg:<1:20); Myeloperoxidase AutoAbs <9.0 U/mL (0.0-9.0); Perinuclear (P-ANCA) <1:20 titer (Neg:<1:20); Proteinase-3 AutoAbs Less than 3.5 U/mL (0.0-3.5)
[2020-02-05] MEDS: Insulin Regular 300 UNITS/3 ML VIAL SC PRN ×2 (17:17→21:29)
[2020-02-05] MEDS ORDERED: Furosemide 20 MG/2 ML VIAL SLOW IVP SCH (19:00)
[2020-02-05] MEDS: oxyCODONE/Acetaminophen 5 mg/325 mg Tablet PO PRN (19:08)
[2020-02-05] MEDS: Magnesium Oxide 400 MG TAB PO SCH (21:26)
[2020-02-05] MEDS: Insulin Glargine 19 UNITS in Pre-Filled Syringe 1 EACH SC SCH (21:28)
[2020-02-06 05:46] LABS: Hypochromia SLIGHT = 6-15 cells (100X) (0-5/hpf); Lymphocytes 10 % (21-51); MDiff Complete? YES; Mean Corpuscular HGB CONC 29.9 g/dL (32.0-36.0); Mean Corpuscular Volume 93.9 fL (78.0-98.0); Mean Platelet Volume 7.5 fL (7.4-10.4); Monocytes 3 % (0-10); Neutrophil 87 % (42-75); Platelet Count 332 thou/uL (130-400); Platelet Morphology Comment Appears Adequate; RBC Distribution Width 16.9 % (11.5-14.5)
[2020-02-06 05:48] LABS: Anion Gap 9 mmol/L (10-20); BUN (Urea Nitrogen) 35 mg/dL (8.4-25.7); Calc. Creatinine Clearance 63 mL/min (70-130); Calcium 8.8 mg/dL (7.8-10.44); Carbon Dioxide 34 mmol/L (23-31); Chloride 101 mmol/L (98-107); Estimated GFR-MDRD 68; Glucose 84 mg/dL (83-110); Magnesium 1.8 mg/dL (1.6-2.6); Potassium 4.1 mmol/L (3.5-5.1); Sodium 140 mmol/L (136-145)
[2020-02-06] MEDS: Levothyroxine Sodium 25 MCG TAB PO SCH (06:16)
[2020-02-06] MEDS: Mometasone 100 MCG/Formoterol 5 MCG 120 PUFF INHALER INH SCH ×2 (08:08→18:18)
[2020-02-06] MEDS: Albuterol 200 PUFF (6.7GM INHALER) INH SCH ×3 (08:09→18:17)
[2020-02-06] MEDS: predniSONE 20 MG TAB PO SCH (08:34)
[2020-02-06] MEDS: Magnesium Oxide 400 MG TAB PO SCH ×2 (08:35→20:38)
[2020-02-06] MEDS: Amiodarone 200 MG TAB PO SCH (08:36)
[2020-02-06] MEDS: Gabapentin 300 MG CAP PO SCH ×2 (08:36→20:38)
[2020-02-06] MEDS: Bumetanide 1 MG TAB PO SCH ×2 (08:36→16:59)
[2020-02-06] MEDS: Apixaban 2.5 MG TAB PO SCH ×2 (08:36→20:37)
[2020-02-06] MEDS: guaiFENesin ER 600 MG TAB PO SCH ×2 (08:36→20:38)
[2020-02-06] MEDS: Aspirin Chewable 81 MG TAB PO SCH (08:37)
[2020-02-06] MEDS: AcetaZOLAMIDE 250 MG TAB PO SCH (09:39)
--- NOTE | 2020-02-06 10:25 | PRG ---
DATE OF SERVICE: 02/06/2020 This is from [facility]. SUBJECTIVE: Mr. Donny Rogers had a good night. He was moved from ICU to the [facility]. He had a good night sleep. He says he is breathing easier. He said his coughing has decreased. He is quite pleased. His bloating has decreased. This corresponds to general overall well-being. He has been requiring dobutamine 2 mcg/kg/ minute. His blood pressure is about 100 to 120 for the last 12 to 24 hours. He still need his diuretics. Normally, he takes quite a bit of diuretics as outpatient, so this is not a surprise, but his blood pressure remains low, which is different. REVIEW OF SYSTEMS: GENERAL: There is no fever or chills. HEENT: There is no change in vision, hearing, or swallowing. PULMONARY: Breathing easy, please see HPI. CARDIOVASCULAR: There is no palpitation or syncope. No chest pain. GI: He is eating well. : He is still on a Dougherty catheter. NEUROLOGIC: There are no focal deficits or weaknesses. MUSCULOSKELETAL: He has chronic back pain. INTEGUMENT: He has chronic decubitus. MEDICATIONS: His current cardiac medications were, 1. Dobutamine at 2 mcg/kg/minute. 2. Diuretic has been changed to Bumex 1 mg twice a day. 3. Aspirin 81 mg daily. 4. Amiodarone at 200 mg daily. 5. Apixaban, which is Eliquis 2.5 mg daily. 6. Magnesium oxide at 800 mg twice a day. 7. Potassium 20 mEq twice a day. Telemetry was reviewed. It is mostly A sensed, V paced and also A paced, V paced, rate is at 80. There is few PVC. There is noted ventricular tachycardia. OBJECTIVE: VITAL SIGNS: His last set of vitals are heart rate about 80 to 84, blood pressure 104/60, and also blood pressure 115/75. GENERAL: He is alert and conversational and able to speak medium length sentences, on 2 L nasal cannula, saturating 100%. HEENT: Shows EOMI. Oropharynx benign with moist mucosa without erythema. No exudate. NECK: JVP is about 9 cm with a positive hepatojugular reflux. LUNGS: Good air movement bilaterally. There is no wheeze this morning. There are left basilar crackles, less than yesterday. CARDIAC: Regular rate and rhythm with occasional irregularity with 2/6 diastolic murmur at the right sternal border and 2/6 holosystolic murmur at the apex with radiation to the left axilla. ABDOMEN: Soft and nontender. EXTREMITIES: Lower extremity without edema. Positive dorsalis pedis pulses bilaterally. LABORATORY VALUES: Sodium 140, potassium 4.1, bicarb is 34, BUN 35, and creatinine at 1.04. His white cell count this morning is 8, hemoglobin is 9, ASSESSMENT: 84-year-old gentleman continues to recover from primary pulmonary insult.This could have been pneumonia and chronic obstructive pulmonary disease exacerbation and sepsis. He has shown hemodynamic stability to the point where he is not needing any norepinephrine for over two days now. However, he still needs dobutamine augmentation. This is different from his baseline. At baseline, he is hypertensive around 130 to 140 despite being on carvedilol 12.5 and Entresto. Right now, he is far from this point. However, today we will begin the process of transitioning to his heart failure medication while on dobutamine augmentation. I am hoping that eventually they can titrate off dobutamine. However, this process may be slow. Please see the following for recommendations. RECOMMENDATIONS: 1. Discontinue Dougherty catheter today. 2. Please ask Cardiac Rehab to come by and start walking the patient. 3. Make the switch to oral diuretics today. Add Bumex 1 mg twice a day. 4. We will add acetazolamide 250 mg daily. Reduce contraction alkalosis. 5. Continue dobutamine augmentation 2 mcg/kg/minute IV GTT, may increase as needed. 6. We will attempt half a dose of Entresto twice a day. If the pressure does not hold, we will need to stop it and try it again tomorrow but we will make attempt today. 7. We will defer Infectious Disease to Dr. Clements and also defer pulmonary care to [facility] cell cleaner. It has been a pleasure taking care of Mr. Rogers. If any question, please give me a call. Job ID: [id number] [facility]
--- NOTE | 2020-02-06 12:07 | PRG ---
DATE OF SERVICE: 02/06/2020 SUBJECTIVE: Mr. Rogers complains predominantly of pain in his back. This is a chronic problem and he has an upcoming appointment with pain management. He is producing small amounts of mucoid sputum, but states that it occurs every 3 to 4 hours whiloe previously it was constant in frequency. He denies any chest pain. He is currently on dobutamine, having previously been on milrinone. Plan at this time is to initiate Entresto and get off dobutamine. He denies any chest pain. OBJECTIVE: VITAL SIGNS: Blood pressure 108/64, on 5 mcg/kg per minute of dobutamine. He has received his initial dose of Entresto earlier this morning. Heart rate 91, saturation 100% on 2 L nasal cannula, although often removing it. GENERAL: He is alert and oriented. He denies chest pain or breathing difficulty. LUNGS: His lungs showed rhonchi, but no wheezing. HEART: Regular rate and rhythm. LABORATORY DATA: Laboratory today includes white count of 8000, hemoglobin 9, platelets count 332,000. Sodium 140, potassium 4.1, BUN 35, creatinine 1.0. His most recent urine 2 days ago has no growth. All of his blood cultures are negative. COVID swab today is negative. IMPRESSION: 1. Chronic obstructive pulmonary disease exacerbation, COVID negative. He is on prednisone taper and neb treatment. He has been on levofloxacin for 48 hours and could be converted to oral therapy. 2. Heart failure under direction of Cardiology. PLAN: We will convert him from IV to oral levofloxacin. I have encouraged him to try to be out of bed. He can be transferred out of the intensive care unit once he is off IV inotrope regimens. Job ID: [id number] [facility]
--- NOTE | 2020-02-06 15:19 | PDOC.HOSPP ---
- Objective Vital Signs & Weight: Vital Signs (12 hours) Temp Pulse Pulse BP BP Pulse Ox Pulse Ox 02/06/20 14:49 95 95 100/57 L 109/65 96 02/06/20 11:05 97.5 F L 02/06/20 08:00 96 02/06/20 07:25 97.4 F L 02/06/20 03:48 98.0 F Pulse Ox 02/06/20 14:49 100 02/06/20 11:05 02/06/20 08:00 02/06/20 07:25 02/06/20 03:48 Weight Admit Weight 172 lb Weight 184 lb 3.2 oz Most Recent Monitor Data Heart Rate from ECG 89 NIBP 109/65 NIBP BP-Mean 79 Respiration from ECG 22 SpO2 97 I&O: 02/05/20 02/06/20 02/07/20 06:59 06:59 06:59 Intake Total 1257 1470 Output Total 1705 1695 Balance -448 -225 Result Diagrams: 02/06/20 05:10 02/06/20 05:10 Additional Labs: Accuchecks 02/06/20 02/06/20 02/05/20 10:47 06:23 20:38 POC Glucose 144 H 98 240 H 02/05/20 16:04 POC Glucose 283 H Hospitalist ROS - Medication Medications: Active Medications Generic Name Dose Route Start Last Admin Trade Name Freq PRN Reason Stop Dose Admin Acetazolamide 250 mg 02/06/20 09:00 02/06/20 09:39 Diamox PO 250 mg DAILY FUNMI Administration Albuterol Sulfate 2 puff 02/02/20 19:00 02/06/20 14:15 Proventil Hfa INH 2 puff [id number] FUNMI Administration Amiodarone HCl 200 mg 02/03/20 09:00 02/06/20 08:36 Cordarone PO 200 mg DAILY FUNMI Administration Apixaban 2.5 mg 01/26/20 21:00 02/06/20 08:36 Eliquis PO 2.5 mg BID FUNMI Administration Aspirin 81 mg 01/27/20 09:00 02/06/20 08:37 Aspirin Chewable PO 81 mg DAILY FUNMI Administration Bumetanide 1 mg 02/06/20 07:30 02/06/20 08:36 Bumex PO 1 mg BID-AC FUNMI Administration Gabapentin 300 mg 02/03/20 21:00 02/06/20 08:36 Neurontin PO 300 mg BID FUNMI Administration Guaifenesin 200 mg 01/28/20 20:00 02/01/20 23:11 Organ-I Nr PO 200 mg Q4H PRN Administration Cough Guaifenesin 600 mg 02/02/20 09:00 02/06/20 08:36 Mucinex PO 600 mg Q12HR FUNMI Administration Dobutamine HCl/Dextrose 500 mg 250 mls @ 0 mls/hr 01/26/20 21:00 02/03/20 15: 12 / Device IVPB 250 mls INF FUNMI Administration Protocol As Directed Potassium Chloride 40 meq/ 100 mls @ 50 mls/hr 01/27/20 05:08 01/28/20 06:08 Device IVPB 100 mls ASDIR PRN Administration FOR SERUM K+ 2.5 - 3.5 Magnesium Sulfate 1 gm/ Sodium 102 mls @ 102 mls/hr 01/27/20 05:08 01/27/20 09:02 Chloride IV 102 mls PRN PRN Administration MAG LEVEL 1.4 - 2.0 Insulin Glargine 19 units/ 0.19 mls @ 0 mls/hr 01/31/20 21:00 02/05/20 21:28 Miscellaneous Medication SC 0.19 mls HS FUNMI Administration Insulin Human Regular 0 units 01/30/20 00:58 02/05/20 17:17 Humulin R SC 4 unit .MILD SLIDING SCALE PRN Administration Mild Correctional Scale Insulin Human Regular 0 units 01/30/20 00:58 02/05/20 21:29 Humulin R SC 2 unit .BEDTIME SLIDING SC PRN Administration Bedtime Correctional Scale Levothyroxine Sodium 25 mcg 01/28/20 06:00 02/06/20 06:16 Synthroid PO 25 mcg 0600 FUNMI Administration Magnesium Oxide 400 mg 01/27/20 05:08 02/03/20 06:11 Magnesium Oxide PO 400 mg BIDPRN PRN Administration FOR SERUM MAG 1.4 - 2.0 Magnesium Oxide 800 mg 02/05/20 21:00 02/06/20 08:35 Magnesium Oxide PO 800 mg BID FUNMI Administration Mometasone Furoate/Formoterol Fumar 2 puff 02/02/20 18:30 02/06/20 08:08 Dulera 100 Mcg/5 Mcg Inhaler INH 2 puff BID-RT FUNMI Administration Oxycodone/Acetaminophen 1 tab 02/03/20 11:00 02/05/20 19:08 Percocet 5/325 PO 1 tab Q4H PRN Administration Severe Pain (7-10) Pantoprazole Sodium 40 mg 02/02/20 09:00 02/06/20 08:36 Protonix PO 40 mg DAILY FUNMI Administration Potassium Chloride 40 meq 01/27/20 05:08 01/27/20 21:30 Klor-Con PER TUBE 40 meq ASDIR PRN Administration FOR SERUM K+ 2.5-3.5 Potassium Chloride 20 meq 02/05/20 21:00 02/06/20 08:36 Klor-Con PO 20 meq BID FUNMI Administration Prednisone 20 mg 02/05/20 09:00 02/06/20 08:34 Prednisone PO 02/10/20 09:01 20 mg DAILY FUNMI Administration Sacubitril/Valsartan 0.5 tab 02/06/20 09:00 02/06/20 08:33 Entresto 24 Mg-26 Mg Tablet PO 0.5 tab BID FUNMI Administration Sertraline HCl 25 mg 01/27/20 09:00 02/06/20 08:36 Zoloft PO 25 mg DAILY FUNMI Administration Sodium Chloride 10 ml 01/27/20 23:26 02/01/20 20:17 Flush - Normal Saline IVF 10 ml PRN PRN Administration Saline Flush Hosp A/P - Plan Sepsis 2/2 PNA Acute on chronic Hypoxic resp failure Acute resP failure requiring intubation COPD exacerbation Hypovolumic shock cannot be ruled out, as required pressor -flu neg - COVID-19 neg - ucux and bl griselda - no growth xso far - s/p extubation, on 5L nasal cannula - Chest X ray 01/29 shows multifocal pneumonia. Was on IV levaquin and ceftriaxone for five days, then restarted levaquin 02/01 per infectious disease recommendations due to hypotension and leukocytosis and additional pressor requirement - doxycycline discontinued by pulmonary 02/04 - procalcitonin negative. 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 PNA and not CHF - no vol OL sxs and CXR LLL infilaterate, no pulm congestion -PO laziz and bumx and diamax -restarted on anne, Back pain - secondary to DJD - continue gabapentin 300 mg bid - oxycodone prn for severe pain #Pacemaker s/p AICD #History of VT and Torsades - continue eliquis - continue amiodarone to 200 mg daily Type II Diabetes - HbA1C 6.8 - continue lantus 19 units qhs Anemia -stable Hypothyroidism -continue levothyroxine Code status: full code -DVt ppx- on eliquis for afib. COIVD neg.
[2020-02-06] MEDS: Insulin Regular 300 UNITS/3 ML VIAL SC PRN (17:05)
[2020-02-06] MEDS: oxyCODONE/Acetaminophen 5 mg/325 mg Tablet PO PRN (20:37)
[2020-02-06] MEDS: Insulin Glargine 19 UNITS in Pre-Filled Syringe 1 EACH SC SCH (20:39)
[2020-02-07] MEDS: Albuterol 200 PUFF (6.7GM INHALER) INH SCH ×4 (00:56→18:31)
[2020-02-07 04:26] LABS: Anion Gap 11 mmol/L (10-20); BUN (Urea Nitrogen) 33 mg/dL (8.4-25.7); Calc. Creatinine Clearance 59 mL/min (70-130); Calcium 8.9 mg/dL (7.8-10.44); Carbon Dioxide 32 mmol/L (23-31); Chloride 102 mmol/L (98-107); Estimated GFR-MDRD 63; Glucose 175 mg/dL (83-110); Magnesium 1.9 mg/dL (1.6-2.6); Potassium 3.9 mmol/L (3.5-5.1); Sodium 141 mmol/L (136-145)
[2020-02-07 04:33] LABS: Hemoglobin 9.2 g/dL (14.0-18.0); Mean Corpuscular HGB CONC 30.8 g/dL (32.0-36.0); Mean Corpuscular Hemoglobin 29.1 pg (27.0-31.0); Mean Corpuscular Volume 94.4 fL (78.0-98.0); Mean Platelet Volume 7.6 fL (7.4-10.4); Platelet Count 309 thou/uL (130-400); Red Blood Cell (RBC) Count 3.17 mill/uL (4.70-6.10); White Blood Cell (WBC) Count 9.6 thou/uL (4.8-10.8)
[2020-02-07 04:34] LABS: Band 3 % (5-11); Lymphocytes 11 % (21-51); MDiff Complete? YES; Monocytes 2 % (0-10); Neutrophil 84 % (42-75); Platelet Morphology Comment Appears Adequate
[2020-02-07] MEDS: Levothyroxine Sodium 25 MCG TAB PO SCH (06:33)
[2020-02-07] MEDS: Mometasone 100 MCG/Formoterol 5 MCG 120 PUFF INHALER INH SCH ×2 (07:51→18:32)
[2020-02-07] MEDS ORDERED: Albumin 25% 100 ML ONE (08:50)
[2020-02-07] MEDS: Magnesium Oxide 400 MG TAB PO SCH ×2 (09:24→21:20)
[2020-02-07] MEDS ORDERED: Ondansetron ODT 8 MG TAB PO PRN (09:24)
[2020-02-07] MEDS: Aspirin Chewable 81 MG TAB PO SCH (09:25)
[2020-02-07] MEDS: predniSONE 20 MG TAB PO SCH (09:25)
[2020-02-07] MEDS: Apixaban 2.5 MG TAB PO SCH ×2 (09:25→21:24)
[2020-02-07] MEDS: Amiodarone 200 MG TAB PO SCH (09:25)
[2020-02-07] MEDS: guaiFENesin ER 600 MG TAB PO SCH ×2 (09:25→21:21)
[2020-02-07] MEDS: Gabapentin 300 MG CAP PO SCH ×2 (09:26→21:21)
[2020-02-07] MEDS: Senokot S 8.6-50 MG TAB PO PRN ×2 (09:26→21:20)
[2020-02-07] MEDS: Bumetanide 1 MG TAB PO SCH (09:26)
[2020-02-07] MEDS: AcetaZOLAMIDE 250 MG TAB PO SCH (09:27)
[2020-02-07] MEDS: Albumin 25% 25 GM/100 ML BOT IVPB SCH (09:28)
[2020-02-07] MEDS ORDERED: Sodium Chloride 0.9% 250 ML IVPB SCH (09:30)
[2020-02-07] MEDS ORDERED: Ondansetron ODT 4 MG TAB PO PRN (09:34)
[2020-02-07] MEDS: Insulin Regular 300 UNITS/3 ML VIAL SC PRN ×2 (11:16→16:52)
--- NOTE | 2020-02-07 12:28 | PRG ---
DATE OF SERVICE: 02/07/2020 SUBJECTIVE: Mr. Rogers states he is feeling okay, although a little weak earlier today. He is tolerating his diet. Unfortunately, we are continuing to struggle with his blood pressure and he remains on low-dose dobutamine. He denies chest pain or palpitations. He denies any fevers or chills. OBJECTIVE: VITAL SIGNS: Blood pressure currently 125 systolic, although earlier today 80/49. GENERAL: He is alert and oriented. He is not in acute distress. He is on nasal oxygen. HEENT: Oropharynx is tacky and dry. LUNGS: Coarse rhonchi greater on the right than on the left. HEART: Irregular with a grade 1 murmur. ABDOMEN: Soft. There is no organomegaly. EXTREMITIES: He has no edema. He has no skin breakdown. LABORATORY DATA: White count today 9600, hemoglobin is 9.2, platelet count 309, 000. Chemistries notable for BUN of 33 and creatinine of 1.1. IMPRESSION: 1. Hypotension, initially felt related to infection, although his infection has resolved. He has required some pressors and is currently on dobutamine, although often that will exacerbate hypotension rather than directly improve it. His blood pressure is under management by the Cardiology Service. 2. Chronic obstructive pulmonary disease exacerbation, improving. We will convert him from IV to oral Levaquin and complete a course. PLAN: He is finishing his course of oral levofloxacin. He is able to get up into the chair. He is taking a diet. At this point, we are awaiting normalization of his blood pressure and assistance from Cardiology in that regard. Job ID: [id number] MTDD
[2020-02-07] MEDS: DOBUTamine 500 mg/250 ml 500 MG in Premix Bag 1 BAG IVPB SCH (12:59)
--- NOTE | 2020-02-07 14:00 | PDOC.HOSPP ---
- Subjective Encounter Date: 02/07/20 Encounter Time: 10:50 Subjective: pt doing ok, still on pressor, talk to RN. sitting in the chair. - Objective Vital Signs & Weight: Vital Signs (12 hours) Temp Pulse Pulse BP BP Pulse Ox Pulse Ox 02/07/20 13:52 95 87 124/59 L 101/50 L 93 L 02/07/20 11:35 97.9 F 02/07/20 07:44 98 02/07/20 07:19 97.4 F L 02/07/20 03:29 98.3 F Pulse Ox 02/07/20 13:52 100 02/07/20 11:35 02/07/20 07:44 02/07/20 07:19 02/07/20 03:29 Weight Admit Weight 172 lb Weight 184 lb 3.2 oz Most Recent Monitor Data Heart Rate from ECG 94 NIBP 125/61 NIBP BP-Mean 82 Respiration from ECG 22 SpO2 100 I&O: 02/06/20 02/07/20 02/08/20 06:59 06:59 06:59 Intake Total 1470 1555 Output Total 1695 2650 Balance -225 -1095 Result Diagrams: 02/07/20 03:40 02/07/20 03:40 Additional Labs: Accuchecks 02/07/20 02/07/20 02/06/20 10:48 05:41 20:19 POC Glucose 189 H 155 H 231 H Hospitalist ROS - Medication Medications: Active Medications Generic Name Dose Route Start Last Admin Trade Name Freq PRN Reason Stop Dose Admin Albumin Human 25 gm 02/07/20 09:30 02/07/20 09:28 Albumin 25% IVPB 02/08/20 10:00 25 gm NOW FUNMI Administration Albuterol Sulfate 2 puff 02/02/20 19:00 02/07/20 13:03 Proventil Hfa INH 2 puff [id number] FUNMI Administration Amiodarone HCl 200 mg 02/03/20 09:00 02/07/20 09:25 Cordarone PO 200 mg DAILY FUNMI Administration Apixaban 2.5 mg 01/26/20 21:00 02/07/20 09:25 Eliquis PO 2.5 mg BID FUNMI Administration Aspirin 81 mg 01/27/20 09:00 02/07/20 09:25 Aspirin Chewable PO 81 mg DAILY FUNMI Administration Gabapentin 300 mg 02/03/20 21:00 02/07/20 09:26 Neurontin PO 300 mg BID FUNMI Administration Guaifenesin 200 mg 01/28/20 20:00 02/01/20 23:11 Organ-I Nr PO 200 mg Q4H PRN Administration Cough Guaifenesin 600 mg 02/02/20 09:00 02/07/20 09:25 Mucinex PO 600 mg Q12HR FUNMI Administration Dobutamine HCl/Dextrose 500 mg 250 mls @ 0 mls/hr 01/26/20 21:00 02/07/20 12: 59 / Device IVPB 250 mls INF FUNMI Administration Protocol As Directed Potassium Chloride 40 meq/ 100 mls @ 50 mls/hr 01/27/20 05:08 01/28/20 06:08 Device IVPB 100 mls ASDIR PRN Administration FOR SERUM K+ 2.5 - 3.5 Magnesium Sulfate 1 gm/ Sodium 102 mls @ 102 mls/hr 01/27/20 05:08 01/27/20 09:02 Chloride IV 102 mls PRN PRN Administration MAG LEVEL 1.4 - 2.0 Insulin Glargine 19 units/ 0.19 mls @ 0 mls/hr 01/31/20 21:00 02/06/20 20:39 Miscellaneous Medication SC 0.19 mls HS FUNMI Administration Insulin Human Regular 0 units 01/30/20 00:58 02/07/20 11:16 Humulin R SC 2 unit .MILD SLIDING SCALE PRN Administration Mild Correctional Scale Insulin Human Regular 0 units 01/30/20 00:58 02/05/20 21:29 Humulin R SC 2 unit .BEDTIME SLIDING SC PRN Administration Bedtime Correctional Scale Levofloxacin 750 mg 02/07/20 06:00 02/07/20 06:33 Levaquin PO 02/09/20 23:59 750 mg 0600 FUNMI Administration Magnesium Oxide 400 mg 01/27/20 05:08 02/03/20 06:11 Magnesium Oxide PO 400 mg BIDPRN PRN Administration FOR SERUM MAG 1.4 - 2.0 Magnesium Oxide 800 mg 02/05/20 21:00 02/07/20 09:24 Magnesium Oxide PO 800 mg BID FUNMI Administration Mometasone Furoate/Formoterol Fumar 2 puff 02/02/20 18:30 02/07/20 07:51 Dulera 100 Mcg/5 Mcg Inhaler INH 2 puff BID-RT FUNMI Administration Ondansetron HCl 4 mg 02/07/20 09:34 02/07/20 09:40 Zofran Odt PO 4 mg Q8H PRN Administration Nausea/Vomiting Oxycodone/Acetaminophen 1 tab 02/03/20 11:00 02/06/20 20:37 Percocet 5/325 PO 1 tab Q4H PRN Administration Severe Pain (7-10) Pantoprazole Sodium 40 mg 02/02/20 09:00 02/07/20 09:25 Protonix PO 40 mg DAILY FUNMI Administration Potassium Chloride 40 meq 01/27/20 05:08 01/27/20 21:30 Klor-Con PER TUBE 40 meq ASDIR PRN Administration FOR SERUM K+ 2.5-3.5 Potassium Chloride 20 meq 02/05/20 21:00 02/07/20 09:24 Klor-Con PO 20 meq BID FUNMI Administration Prednisone 20 mg 02/05/20 09:00 02/07/20 09:25 Prednisone PO 02/10/20 09:01 20 mg DAILY FUNMI Administration Senna/Docusate Sodium 2 tab 01/26/20 14:55 02/07/20 09:26 Senokot S PO 2 tab BIDPRN PRN Administration Constipation Sertraline HCl 25 mg 01/27/20 09:00 02/07/20 09:25 Zoloft PO 25 mg DAILY FUNMI Administration Sodium Chloride 10 ml 01/27/20 23:26 02/01/20 20:17 Flush - Normal Saline IVF 10 ml PRN PRN Administration Saline Flush - Exam General Appearance: NAD, awake alert Eye: PERRL ENT: normocephalic atraumatic Neck: supple Heart: RRR Respiratory: CTAB Gastrointestinal: soft, normal bowel sounds Neurological: no focal deficits Hosp A/P - Plan Sepsis 2/2 PNA Acute on chronic Hypoxic resp failure Acute resP failure requiring intubation COPD exacerbation Hypovolumic shock cannot be ruled out, as required pressor -flu neg - COVID-19 neg - ucux and bl griselda - no growth xso far - s/p extubation, on 5L nasal cannula - Chest X ray 01/29 shows multifocal pneumonia. Was on IV levaquin and ceftriaxone for five days, then restarted levaquin 3/31 per infectious disease recommendations due to hypotension and leukocytosis and additional pressor requirement - doxycycline discontinued by pulmonary 02/04 - procalcitonin negative. 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 PNA and not CHF - no vol OL sxs and CXR LLL infilaterate, no pulm congestion -PO laziz and bumx and diamax -restarted on - to be weaned off levophed. 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 COIVD neg.
[2020-02-07] MEDS ORDERED: AcetaZOLAMIDE 250 MG TAB PO SCH (16:00)
[2020-02-07] MEDS: traMADol HCl 50 MG TAB PO PRN (21:21)
[2020-02-07] MEDS: Insulin Glargine 19 UNITS in Pre-Filled Syringe 1 EACH SC SCH (21:24)
[2020-02-08] MEDS: Albuterol 200 PUFF (6.7GM INHALER) INH SCH ×4 (00:44→18:40)
[2020-02-08] MEDS: traMADol HCl 50 MG TAB PO PRN (02:21)
--- NOTE | 2020-02-08 06:24 | PRG ---
DATE OF SERVICE: 02/07/2020 SUBJECTIVE: Mr. Donny Rogers had a variable day. He had a good day yesterday. He was able to get up and walk [facility] around the unit with cardiac rehab. Entresto was started yesterday and also diuretics were switched to Bumex 1 mg twice a day. Throughout the day and throughout the evening, he had a slow drop of systolic blood pressure. This morning, his systolic blood pressure dipped down into the 80s. A small bolus of 200 mL of IV fluids together with increasing dobutamine to 5 mcg/ kg per minute increases the blood pressure to high 90s, then low 100s. He felt fine throughout this period. He also said that taking levothyroxine, the thyroid medication causes him quite a bit of nausea and this nausea also preceded the drop in blood pressure. REVIEW OF SYSTEMS: GENERAL: There is no fever or productive cough. HEENT: There is no change in vision, hearing, or swallowing. PULMONARY: He is breathing well, not short of breath. CARDIOVASCULAR: Please see HPI. However, there is no palpitation or syncope. No chest pains. GI: Please see HPI. : He tolerated discontinued off Dougherty catheter fine. He is able to urinate on his own. NEUROLOGIC: There are no focal deficits or weaknesses. INTEGUMENT: He has chronic decubitus. MUSCULOSKELETAL: He has chronic lower back pain. CURRENT CARDIAC MEDICATIONS: Include: 1. Magnesium oxide 800 mg twice a day. 2. Amiodarone 200 mg daily. 3. Apixaban 2.5 mg daily. 4. Dobutamine now 5 mcg/kg per minute. 5. Acetazolamide 250 mg daily. 6. Bumex 1 mg twice a day. 7. He has continued to be on levofloxacin 500 mg daily and he is also on prednisone 20 mg daily. PHYSICAL EXAMINATION: VITAL SIGNS: Telemetry was reviewed. He is being either A-paced, V-paced or A-sensed and V-paced. There are some PVCs, but there is no ventricular tachycardia. Latest vitals are heart rate 88 and blood pressure 99/52. GENERAL: He is alert and conversational, reclining comfortably in bed. He is able to maintain medium length sentences without being short of breath. HEENT: Shows EOMI. Oropharynx benign with moist mucosa without erythema nor exudate. NECK: His JVP is about 8 cm. Positive hepatojugular reflux. LUNGS: Good air movement bilaterally. His crackles are now gone. CARDIAC: Regular rate and rhythm with occasional irregularity. 2/6 diastolic murmur at the right sternal border and also 2/6 holosystolic murmur at the left apex with radiation to the left axilla. ABDOMEN: Soft. He has some nonspecific abdominal discomfort on the left side. EXTREMITIES: Lower extremities; he has about 1+ edema at the ankles. LABORATORY VALUES: Show white cell count 9.6, hemoglobin 9.2, platelets of 309. His chemistry shows sodium 141, potassium 3.9, bicarb 32, BUN 38, and creatinine 1.12. ASSESSMENT: 84-year-old gentleman is having uneven recovery from primary lung process, or possible pneumonia in the background of COPD that led to initial septic shock and intubation on admission. He has recovered from those episodes. Right now, most likely combination of diuresis from yesterday, he is net negative of 1 L again and Entresto that causing much more vasodilation than he can tolerate. We will have to hold diuretics for today and stop Entresto. He has proven to be in vasodilatory state to tolerate even his home dose medication. He normally requires carvedilol 12.5 mg twice a day plus Entresto daily to have systolic blood pressure between 130 and 140 mmHg. For now, we will leave him on dobutamine and stop all diuretics throughout the day. After that, we will slowly titrate off the dobutamine and probably not going to start Entresto at all. Might need to have to do this on a long-term basis as an outpatient. Please see the following for detailed recommendations. RECOMMENDATIONS: 1. Stop Bumex. 2. Increase dobutamine to 5 mcg/kg per minute and maintain that throughout the day. We will start titrating down later on tonight or tomorrow. 3. Please continue to give acetazolamide 250 mg daily. This is to reduce the contraction alkalosis. 4. Continue to supplement potassium to keep it above 4 and magnesium to keep it above 2. 5. It will be a long process of weaning off dobutamine and converting to a minimum-dose heart failure medication. It has been a pleasure taking care of Mr. Rogers. If you have any questions, please give me a call. Job ID: [id number] [facility]
[2020-02-08] MEDS: guaiFENesin ER 600 MG TAB PO SCH ×2 (07:47→20:04)
[2020-02-08] MEDS: Amiodarone 200 MG TAB PO SCH (07:47)
[2020-02-08] MEDS: Apixaban 2.5 MG TAB PO SCH ×2 (07:47→20:02)
[2020-02-08] MEDS: Magnesium Oxide 400 MG TAB PO SCH ×2 (07:47→20:03)
[2020-02-08] MEDS: Levothyroxine Sodium 25 MCG TAB PO SCH (07:47)
[2020-02-08] MEDS: Gabapentin 300 MG CAP PO SCH ×2 (07:48→20:04)
[2020-02-08] MEDS: Aspirin Chewable 81 MG TAB PO SCH (07:48)
[2020-02-08] MEDS: predniSONE 20 MG TAB PO SCH (07:48)
[2020-02-08] MEDS: Mometasone 100 MCG/Formoterol 5 MCG 120 PUFF INHALER INH SCH ×2 (08:14→18:37)
[2020-02-08 08:35] LABS: #Eosinphils 0.1 thou/uL (0.0-0.7); #Lymphocytes 0.8 thou/uL (1.20-3.40); #Monocytes 0.6 thou/uL (0.11-0.59); %Basophils 0.1 % (0.0-1.0); %Eosinophils 0.5 % (0.0-10.0); %Lymphocytes 6.8 % (21.0-51.0); %Monocytes 4.8 % (0.0-10.0); %Neutrophils 87.9 % (42.0-75.0); Hemoglobin 9.4 g/dL (14.0-18.0); Mean Corpuscular HGB CONC 31.1 g/dL (32.0-36.0); Mean Corpuscular Hemoglobin 29.5 pg (27.0-31.0); Platelet Count 297 thou/uL (130-400); RBC Distribution Width 17.2 % (11.5-14.5); Red Blood Cell (RBC) Count 3.19 mill/uL (4.70-6.10); White Blood Cell (WBC) Count 12.5 thou/uL (4.8-10.8)
[2020-02-08 08:55] LABS: Anion Gap 11 mmol/L (10-20); BUN (Urea Nitrogen) 29 mg/dL (8.4-25.7); Calc. Creatinine Clearance 49 mL/min (70-130); Calcium 9.3 mg/dL (7.8-10.44); Carbon Dioxide 27 mmol/L (23-31); Chloride 105 mmol/L (98-107); Estimated GFR-MDRD 52; Glucose 146 mg/dL (83-110); Potassium 4.1 mmol/L (3.5-5.1); Sodium 139 mmol/L (136-145)
[2020-02-08] MEDS ORDERED: Spironolactone 25 MG TAB PO SCH (09:15)
[2020-02-08] MEDS: Albumin 25% 25 GM/100 ML BOT IVPB SCH (10:04)
--- NOTE | 2020-02-08 10:20 | PRG ---
DATE OF SERVICE: 02/08/2020 This is from [facility]. SUBJECTIVE: Mr. Donny Rogers had a stable day. He really did not get out of bed. However, he said he was breathing easy. There was no fever or chills and no productive cough. He was able to maintain the blood pressures in the high 90s and mid to high 100s, so his blood pressure ranged about 99 to 110. He denies having any trouble eating. He had a quiet day. REVIEW OF SYSTEMS: GENERAL: There is no fever or chills. HEENT: There is no change in hearing, vision, or swallowing. PULMONARY: He is breathing easy. CARDIAC: There is no palpitations, syncope, or chest pains. GI: He says he is constipated. : He is urinating well. MUSCULOSKELETAL: There is no focal deficits or weakness. He has back pain. INTEGUMENT: He has decubitus breakdown on his back. MEDICATIONS: His cardiac medications include; 1. Dobutamine at 5 mcg/kg per minute. 2. Amiodarone 200 mg daily. 3. Apixaban 2.5 mg b.i.d. 4. Acetazolamide 250 mg daily. 5. Aspirin 81 mg daily. He is still on levofloxacin 750 mg daily and potassium chloride 20 mEq b.i.d. plus supplement. PHYSICAL EXAMINATION: VITAL SIGNS: The telemetry was reviewed. He is in A sensed, V paced or A paced , V paced; but there is some PVC, but there is no concerning ventricular tachycardia. His last set of vitals are heart rate 84 and blood pressure 111/59. GENERAL: He is alert and conversational, reclining comfortably in bed. HEENT: Show EOMI. Oropharynx benign. There is no erythema or exudate. NECK: He has a right IJ central line and his JVP is roughly about 9 cm with a positive hepatojugular reflux. PULMONARY: Good air movement bilaterally. There are no crackles. No wheezes. Lungs sounds are excellent this morning. CARDIAC: His heart has regular rate and rhythm with occasional irregularity. There is 2/6 diastolic murmur at the right upper sternal border. There is 3/6 holosystolic murmur at the apex with radiation to the left axilla. ABDOMEN: Soft, nontender. Positive bowel sounds. EXTREMITIES: Lower extremities are without edema with positive dorsalis pedis pulses bilaterally. His net I's and O's over the last 24 hours is negative 300. ASSESSMENT: An 84-year-old gentleman having a variable recovery from combination of primary pneumonia like process leading to early septic shock in the background of chronic obstructive pulmonary disease. The patient seemed to demonstrate that he needs an inotropic support. He also appears to be in vasodilatory state. His white cell count also increased from 9.6 to 12.5 this morning. It appears that continuing infectious or inflammatory process appears to be ongoing. For now, we will remove central line to eliminate the source and ask for Infectious Disease consult to see if there is something that we have missed. In the meantime, we will keep on using small dose of inotrope to give him support. We will have to continue to avoid heart failure medications until Mr. Donny Rogers redevelops his vascular tone. When it happens, the blood pressure will significantly increase. RECOMMENDATIONS: 1. Decrease dobutamine from 5 mcg/kg per minute down to 2.5 mcg/kg per minute. 2. Stop acetazolamide. His contraction alkalosis has resolved. His bicarb has decreased down to 27. 3. Start spironolactone 25 mg daily. This will give us slow, but sustained diuresis over the day as well as some modicum of heart failure treatment and help ensure the potassium to stay above 4. 4. Please pull central line. It has been almost two weeks now. 5. Please place PICC. This will help with the access if something happens such as sepsis induced hypotension, then norepinephrine could be run through the PICC immediately without the need of emergently insert central line. 6. Please ask cardiac rehab to walk the patient as the patient needs to be up and walking that would help him to recover. 7. Appreciate both Infectious Disease and Pulmonary consult in help managing of this patient. It has been a pleasure taking care of Mr. Rogers. If you have any question, please give me a call. Job ID: [id number] [facility]
--- NOTE | 2020-02-08 10:24 | PRG ---
DATE OF SERVICE: 02/08/2020 SUBJECTIVE: An 84-year-old gentleman, remains in the MICU. Apparently, his blood pressure dropped 70s and 80s. He was restarted on Dobutrex at 2.5. OBJECTIVE: VITAL SIGNS: Blood pressure 127/60, pulse 88, respirations 18 . CHEST: No wheezing or crackles. CARDIAC: Normal S1 and S2. No gallops. ABDOMEN: No masses. LABORATORY DATA: Creatinine is 1.32. ASSESSMENT: Congestive heart failure, cardiomyopathy, chronic obstructive pulmonary disease, mild azotemia. PLAN: Once we can get the patient off his Dobutrex, he is pretty much ready to go home. He is stable from pulmonary standpoint of view. PT, neb treatments, supportive care, and Dulera. We will follow. Job ID: [id number]
--- NOTE | 2020-02-08 11:38 | PDOC.HOSPP ---
- Subjective Encounter Date: 02/08/20 Encounter Time: 09:50 Subjective: feels constipated, last BM 2days ago, afebrile, mild bump in wbcs., on dobutamine still, d/w Dr. Kimble - Objective Vital Signs & Weight: Vital Signs (12 hours) Temp Pulse Pulse BP BP Pulse Ox Pulse Ox 02/08/20 11:16 97.9 F 02/08/20 09:30 88 89 127/63 116/61 98 02/08/20 07:57 99 02/08/20 07:22 98.5 F 02/08/20 03:43 99.1 F Pulse Ox 02/08/20 11:16 02/08/20 09:30 100 02/08/20 07:57 02/08/20 07:22 02/08/20 03:43 Weight Admit Weight 172 lb Weight 181 lb 6.4 oz Most Recent Monitor Data Heart Rate from ECG 80 NIBP 97/62 NIBP BP-Mean 73 Respiration from ECG 18 SpO2 100 I&O: 02/07/20 02/08/20 02/09/20 06:59 06:59 06:59 Intake Total 1555 1026 Output Total 2650 1325 Balance -1095 -299 Result Diagrams: 02/08/20 08:20 02/08/20 08:20 Additional Labs: Accuchecks 02/08/20 02/08/20 02/07/20 10:40 05:41 19:55 POC Glucose 124 H 155 H 242 H 02/07/20 02/07/20 02/06/20 16:55 10:48 17:06 POC Glucose 174 H 189 H 235 H Hospitalist ROS - Medication Medications: Active Medications Generic Name Dose Route Start Last Admin Trade Name Freq PRN Reason Stop Dose Admin Albuterol Sulfate 2 puff 02/02/20 19:00 02/08/20 08:14 Proventil Hfa INH 2 puff [id number] FUNMI Administration Amiodarone HCl 200 mg 02/03/20 09:00 02/08/20 07:47 Cordarone PO 200 mg DAILY FUNMI Administration Apixaban 2.5 mg 01/26/20 21:00 02/08/20 07:47 Eliquis PO 2.5 mg BID FUNMI Administration Aspirin 81 mg 01/27/20 09:00 02/08/20 07:48 Aspirin Chewable PO 81 mg DAILY FUNMI Administration Gabapentin 300 mg 02/03/20 21:00 02/08/20 07:48 Neurontin PO 300 mg BID FUNMI Administration Guaifenesin 200 mg 01/28/20 20:00 02/01/20 23:11 Organ-I Nr PO 200 mg Q4H PRN Administration Cough Guaifenesin 600 mg 02/02/20 09:00 02/08/20 07:47 Mucinex PO 600 mg Q12HR FUNMI Administration Dobutamine HCl/Dextrose 500 mg 250 mls @ 0 mls/hr 01/26/20 21:00 02/07/20 12: 59 / Device IVPB 250 mls INF FUNMI Administration Protocol As Directed Potassium Chloride 40 meq/ 100 mls @ 50 mls/hr 01/27/20 05:08 01/28/20 06:08 Device IVPB 100 mls ASDIR PRN Administration FOR SERUM K+ 2.5 - 3.5 Magnesium Sulfate 1 gm/ Sodium 102 mls @ 102 mls/hr 01/27/20 05:08 01/27/20 09:02 Chloride IV 102 mls PRN PRN Administration MAG LEVEL 1.4 - 2.0 Insulin Glargine 19 units/ 0.19 mls @ 0 mls/hr 01/31/20 21:00 02/07/20 21:24 Miscellaneous Medication SC 0.19 mls HS FUNMI Administration Insulin Human Regular 0 units 01/30/20 00:58 02/07/20 16:52 Humulin R SC 2 unit .MILD SLIDING SCALE PRN Administration Mild Correctional Scale Insulin Human Regular 0 units 01/30/20 00:58 02/05/20 21:29 Humulin R SC 2 unit .BEDTIME SLIDING SC PRN Administration Bedtime Correctional Scale Levofloxacin 750 mg 02/07/20 06:00 02/08/20 05:35 Levaquin PO 02/09/20 23:59 750 mg 0600 FUNMI Administration Levothyroxine Sodium 25 mcg 02/08/20 09:00 02/08/20 07:47 Synthroid PO 25 mcg DAILY FUNMI Administration Magnesium Oxide 400 mg 01/27/20 05:08 02/03/20 06:11 Magnesium Oxide PO 400 mg BIDPRN PRN Administration FOR SERUM MAG 1.4 - 2.0 Magnesium Oxide 800 mg 02/05/20 21:00 02/08/20 07:47 Magnesium Oxide PO 800 mg BID FUNMI Administration Mometasone Furoate/Formoterol Fumar 2 puff 02/02/20 18:30 02/08/20 08:14 Dulera 100 Mcg/5 Mcg Inhaler INH 2 puff BID-RT FUNMI Administration Ondansetron HCl 4 mg 02/07/20 09:34 02/07/20 09:40 Zofran Odt PO 4 mg Q8H PRN Administration Nausea/Vomiting Pantoprazole Sodium 40 mg 02/02/20 09:00 02/08/20 07:47 Protonix PO 40 mg DAILY FUNMI Administration Potassium Chloride 40 meq 01/27/20 05:08 01/27/20 21:30 Klor-Con PER TUBE 40 meq ASDIR PRN Administration FOR SERUM K+ 2.5-3.5 Potassium Chloride 20 meq 02/05/20 21:00 02/08/20 07:48 Klor-Con PO 20 meq BID FUNMI Administration Prednisone 20 mg 02/05/20 09:00 02/08/20 07:48 Prednisone PO 02/10/20 09:01 20 mg DAILY FUNMI Administration Sertraline HCl 25 mg 01/27/20 09:00 02/08/20 07:47 Zoloft PO 25 mg DAILY FUNMI Administration Sodium Chloride 10 ml 01/27/20 23:26 02/01/20 20:17 Flush - Normal Saline IVF 10 ml PRN PRN Administration Saline Flush Tramadol HCl 50 mg 02/07/20 14:37 02/08/20 02:21 Ultram PO 50 mg Q6H PRN Administration Moderate to Severe Pain (6-10) - Exam General Appearance: NAD, awake alert Eye: PERRL ENT: normocephalic atraumatic Neck: supple Heart: RRR Respiratory: CTAB Gastrointestinal: soft, normal bowel sounds Hosp A/P - Plan Sepsis 2/2 PNA Acute on chronic Hypoxic resp failure Acute resP failure requiring intubation COPD exacerbation Hypovolumic shock cannot be ruled out, as required pressor -flu neg - COVID-19 neg - ucux and bl griselda - no growth xso far - s/p extubation, on 5L nasal cannula - Chest X ray 01/29 shows multifocal pneumonia. Was on IV levaquin and ceftriaxone for five days, then restarted levaquin 02/01 per infectious disease recommendations due to hypotension and leukocytosis and additional pressor requirement - doxycycline discontinued by pulmonary 02/04 - procalcitonin negative. 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 PNA and not CHF - no vol OL sxs and CXR LLL infilaterate, no pulm congestion -PO laziz and bumx and diamax -restarted on anne, - to be weaned off levophed. 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 COIVD neg. 6th d/w Dr. Kimble, it appears his persistent hypotension may not be cardiac related. He has mild jump in wbcs without temp. [cld be steroid induced] pt clinically looks non-toxic on prednisone and LQ for COPD exacerbation --talk to Dr. Clements --getting UA and CT chest as not sure of etiology for persistent hypotension [ his BP improved today but still on dobutamine], as he could not come out of pressor/dobutamine constipation - scheduled stool softeners. once medically stable, pt wants to go home [ to his and children]
[2020-02-08] MEDS ORDERED: Senokot S 8.6-50 MG TAB PO SCH (11:45)
--- NOTE | 2020-02-08 12:16 | SPC ---
Ultrasound guided right upper extremity PICC placement HISTORY: Elevated white blood cell count. Patient needs long-term IV antibiotics. FINDINGS: Informed consent obtained prior to the procedure. An appropriate access site was determined with ultrasound guidance. The area was then meticulously pr epped and draped in usual sterile fashion. Skin overlying the right basilic vein anesthetized with 1% buffered lidocaine. Utilizing direct sonog raphic guidance, vascular access is obtained via the right basilic vein, and an 0.018in guidewire was advanced to the cavoatrial junction. Intravascular length is calculated at 42 cm, and the PICC is cut accordingly. Needle is removed and replaced with a peel-away sheath. The PICC was advanced over the wire. Wire and peel-away sheath were removed. The tip of the catheter overlies the cavoatrial junction. The catheter was accessed and aspirated/flushed easily. FINDINGS: Technically successful placement of a 40 to centimeter dual-lumen 5 [place] right upper extremity PICC line. IMPRESSION: Successful ultrasound guided placement of a right upper extremity PICC.
[2020-02-08] MEDS: Insulin Glargine 19 UNITS in Pre-Filled Syringe 1 EACH SC SCH (20:03)
[2020-02-08] MEDS: Insulin Regular 300 UNITS/3 ML VIAL SC PRN (20:03)
[2020-02-08] MEDS: predniSONE 50 MG TAB PO SCH (20:04)
[2020-02-08] MEDS: Senokot S 8.6-50 MG TAB PO SCH (20:04)
[2020-02-08 22:43] LABS: Bacteria/HPF None Seen HPF (None Seen); Bilirubin Negative (Negative); Blood, Urine Trace (Negative); Clarity Clear (Clear); Glucose, Urine (Dipstick) Normal (Negative); Leukocyte Negative Leu/uL (Negative); Nitrite Negative (Negative); Protein, Urine (Dipstick) Negative (Neg-Trace); Squamous Epithelial None Seen HPF (0-3); Urobilinogen Normal mg/dL (Less than 2); WBC/HPF 0-3 HPF (0-3)
[2020-02-08 22:45] LABS: Urine Culture Reflex No No
[2020-02-09] MEDS: Albuterol 200 PUFF (6.7GM INHALER) INH SCH ×4 (00:51→18:37)
[2020-02-09] MEDS: predniSONE 50 MG TAB PO SCH ×2 (01:50→08:17)
[2020-02-09 03:39] LABS: #Lymphocytes 0.4 thou/uL (1.20-3.40); #Monocytes 0.3 thou/uL (0.11-0.59); #Neutrophils 11.8 thou/uL (1.40-6.50); %Basophils 0.2 % (0.0-1.0); %Eosinophils 0.3 % (0.0-10.0); %Lymphocytes 3.3 % (21.0-51.0); %Monocytes 2.1 % (0.0-10.0); %Neutrophils 94.1 % (42.0-75.0); Hemoglobin 8.9 g/dL (14.0-18.0); Mean Corpuscular HGB CONC 31.5 g/dL (32.0-36.0); Mean Corpuscular Hemoglobin 29.9 pg (27.0-31.0); Mean Corpuscular Volume 94.9 fL (78.0-98.0); Mean Platelet Volume 7.2 fL (7.4-10.4); Platelet Count 254 thou/uL (130-400); RBC Distribution Width 16.9 % (11.5-14.5); Red Blood Cell (RBC) Count 2.99 mill/uL (4.70-6.10); White Blood Cell (WBC) Count 12.6 thou/uL (4.8-10.8)
[2020-02-09 04:00] LABS: Anion Gap 9 mmol/L (10-20); BUN (Urea Nitrogen) 31 mg/dL (8.4-25.7); Calc. Creatinine Clearance 58 mL/min (70-130); Calcium 9.5 mg/dL (7.8-10.44); Carbon Dioxide 29 mmol/L (23-31); Chloride 106 mmol/L (98-107); Estimated GFR-MDRD 62; Glucose 206 mg/dL (83-110); Potassium 5.1 mmol/L (3.5-5.1); Sodium 139 mmol/L (136-145)
[2020-02-09] MEDS: Insulin Regular 300 UNITS/3 ML VIAL SC PRN ×3 (05:44→20:19)
--- NOTE | 2020-02-09 06:25 | PRG ---
DATE OF SERVICE: 02/08/2020 SUBJECTIVE: Mr. Rogers is still in the [facility]. He is lying in bed. His status has improved. He is able to walk today a few steps without much difficulty. Apparently, there was some concern with his blood pressure trends and still having low blood pressure. No headaches. No visual symptoms, sore throat, odynophagia , or dysphagia. His dyspnea is much better. No abdominal pain. He is voiding without difficulty. Chronic low back pain which is exacerbated for the past 2 months. OBJECTIVE: VITAL SIGNS: Temperature max 98.7 to 99.1, blood pressure 117/64, pulse 81, respiratory rate 20 to 22, O2 saturation 96%. EXTREMITIES: The patient has bruising in the extremities, mostly in the upper extremities. GENERAL: He is an awake, alert, oriented, no distress. He can finish full sentences without any difficulty. HEENT: Oral cavity is normal. LUNGS: With a few inspiratory crackles particularly on the right side right base, a little bit of wheezing there as well. HEART: S1, S2. Regular rate without murmurs. ABDOMEN: Soft, not distended or tender. No ascites. No bladder distention. MUSCULOSKELETAL: He has chronic joint issues. He also has gout and I think that right now it is quiescent. LABORATORY DATA: White cell count is up to 12.5, hemoglobin 9.4, platelets 297 , 87% neutrophils. Creatinine is 1.32, which is up from previous values. Liver profile last time checked was a few days ago and that was normal. Albumin 3.3. Microbiology with nothing new. The last chest x-ray from February 03 showed few interstitial markings, increased cardiomegaly. He is currently receiving 1. Eliquis. 2. Dobutamine. 3. Gabapentin. 4. Levofloxacin. 5. Ondansetron. 6. Prednisone. ASSESSMENT AND DISCUSSION: Ischemic cardiomyopathy, rheumatoid arthritis, previously on Humira and more recently on Stelara or similar which he was not able to continue because of coats and then hypotension associated with some respiratory symptoms of respiratory failure requiring intubation and then extubation. Concern for pneumonic process with two COVID-19 negative tests one week apart. Overall , he has clinically improved. There are some issues with his neutrophilia, but that is most likely due to the prednisone and he is immunosuppressed, so I think we need to rule out some of the opportunistic pathogens including cytomegalovirus, Histoplasma capsulatum. We will probably have to do a quantiferon although, most likely in this circumstance, it will not be informative due to likely indeterminate results. We should be able to discontinue levofloxacin soon. We will recheck his procalcitonin. Job ID: [id number] [facility]TD[facility]
[2020-02-09] MEDS ORDERED: diphenhydrAMINE 50 MG CAP PO SCH (08:00)
[2020-02-09] MEDS: Amiodarone 200 MG TAB PO SCH (08:16)
[2020-02-09] MEDS: Magnesium Oxide 400 MG TAB PO SCH ×2 (08:16→20:17)
[2020-02-09] MEDS: Levothyroxine Sodium 25 MCG TAB PO SCH (08:16)
[2020-02-09] MEDS: guaiFENesin ER 600 MG TAB PO SCH ×2 (08:16→20:17)
[2020-02-09] MEDS: Senokot S 8.6-50 MG TAB PO SCH ×2 (08:16→20:17)
[2020-02-09] MEDS: Spironolactone 25 MG TAB PO SCH (08:16)
[2020-02-09] MEDS: Gabapentin 300 MG CAP PO SCH ×2 (08:16→20:17)
[2020-02-09] MEDS: Aspirin Chewable 81 MG TAB PO SCH (08:17)
[2020-02-09] MEDS: Apixaban 2.5 MG TAB PO SCH ×2 (08:17→20:17)
[2020-02-09] MEDS: predniSONE 20 MG TAB PO SCH ×2 (08:18→09:15)
[2020-02-09] MEDS: Mometasone 100 MCG/Formoterol 5 MCG 120 PUFF INHALER INH SCH ×2 (08:18→18:37)
[2020-02-09] MEDS ORDERED: Carvedilol 6.25 MG TAB PO SCH (10:00)
--- NOTE | 2020-02-09 10:07 | PRG ---
DATE OF SERVICE: 02/09/2020 SUBJECTIVE: Donny Rogers is an 84-year-old gentleman, who is awake, alert, and responsive. Denies any pain, discomfort. Still on Dobutrex. OBJECTIVE: VITAL SIGNS: Blood pressure 130/80, temperature 98, saturations 90%, respiratory rate 18. CHEST: Decreased breath sounds. No wheezing. CARDIAC: Normal S1, S2. No gallops. ABDOMEN: No masses. LABORATORY DATA: BUN is 31, creatinine is 1.3, bicarb is 29. White count 12,000, H and H 8 and 26, platelet count 254. ASSESSMENT: 1. Respiratory failure. 2. Diastolic dysfunction. 3. Congestive heart failure. 4. Chronic obstructive pulmonary disease. 5. Previous coronary artery bypass graft. PLAN: Low-dose prednisone. Empiric antibiotics. Supportive care. PT. We will follow. Job ID: [id number]
--- NOTE | 2020-02-09 10:25 | PRG ---
DATE OF SERVICE: 02/09/2020 SUBJECTIVE: Mr. Donny Rogers had an excellent day. He was able to walk the entire unit with cardiac rehab. This is an excellent improvement. He apparently regained his pressure throughout the day. He was able to maintain his blood pressure above 100, 120s, and 130s sometimes, and he was able to sleep overnight. He did not complain of shortness of breath, fever, or chills. He does have constipation and asked for a constipation relief. REVIEW OF SYSTEMS: GENERAL: There is no fever or chills. HEENT: There is no change in vision, hearing, or swallowing. PULMONARY: See HPI. CARDIOVASCULAR: There is no palpitation, chest pain, or syncope. GI: He is constipated. : He is urinating well. NEUROLOGIC: There are no new focal deficits or weaknesses. MUSCULOSKELETAL: He complains of lower back pain. INTEGUMENT: He has chronic decubitus in the back. PHYSICAL EXAMINATION: VITAL SIGNS: The telemetry was reviewed. It showed mostly A-paced V-paced and A-sensed V-paced. There is some PVC, but there is no concerning tachyarrhythmia. His latest vitals are heart rate 80 and paced, blood pressure 138/70. GENERAL: He is alert, conversational, sitting comfortably in bed after eating breakfast. HEENT: Showed EOMI. Oropharynx benign with moist mucosa. His right IJ central line has been pulled out. His JVP is roughly about 9 cm with positive hepatojugular reflux. PULMONARY: There is good air movement bilaterally, clear to auscultation. There are no crackles, no wheeze. This is excellent lung finding. CARDIAC: There is regular rate and rhythm with occasional irregularity. There is 3/6 diastolic murmur at the right sternal border. There is also 3/6 holosystolic murmur at apex with radiation to the left axilla. ABDOMEN: Large, soft, positive bowel sounds. EXTREMITIES: Lower extremities without edema. There are positive dorsalis pedis pulses bilaterally. LABORATORY VALUES: White cell count 12.6, hemoglobin 8.9, and platelets at 254. His chemistry showed sodium 139, potassium 5.1, BUN at 31, and creatinine had improved by decreasing down to 1.13. ASSESSMENT: 84-year-old gentleman, is making good progress in recovery from process of pneumonia, sepsis-like state at admission that required resuscitation and intubation-ventilation. Removing central line has helped. He has regained his vascular tone. He is becoming more toward hypertensive again. So , now we may begin to reinitiate heart failure medications. Please see the following for recommendations; Before admission, he demonstrated recovery of cardiac contractile function with LVEF of 50% but diastolic dysfunction. This episode of pneumonia-sepsis episode reduced his LVEF down to 35% and worsened the diastolic dysfunction as demonstrated by severely depressed e' velocity on echocardiography. Depression of diastolic dysfunction has the worse outcome in sepsis setting. Dobutamine was used to augment both contractility and lusitropy to provide better stroke volume. He is intolerant or very brittle to increase in volume; thus, only small volume additions were used. With cardiac output = HR X SV, the resultant enhancement of CO perfused his organs during this stress state. With return of vascular tone, we now can transition off dobutamine and return back to HF treatment. RECOMMENDATIONS 1. Continue dobutamine at 2.5 mcg/kg per minute for now. We will aim to titrate this off tomorrow. 2. Start carvedilol 6.25 mg p.o. b.i.d. 3. Continue with spironolactone 25 mg daily. Right now, he is still euvolemic with a recent sepsis-like state, volume depletion would do him harm. So, we will minimize the diuretics until he has proven that he is becoming more volume overloaded. 4. Please ensure that the patient will walk with the cardiac rehab again today. 5. Decrease potassium supplement to just 20 mEq daily. We may need to decrease that again. 6. If he is able to tolerate off dobutamine and doing well on low-dose carvedilol and spironolactone, at that point, then he can be discharged, but, then he needs to demonstrate blood pressure stability and volume stability without augmentation before he can go. 7. I appreciate Dr. Clements' input. We are looking forward to his adjustments. It has been a pleasure taking care of Mr. Donny Rogers. If you have any questions, please give me a call. Job ID: [id number] [facility]
--- NOTE | 2020-02-09 13:09 | PDOC.HOSPP ---
- Subjective Encounter Date: 02/09/20 Encounter Time: 09:10 non-verbal Subjective: BP in the mnitor systolic around 150. pt doing well, BG high, [will titrate glargine]. appreciate the input from Dr. Clements and dr. Kimble. Ct chest cancelled. - Objective Vital Signs & Weight: Vital Signs (12 hours) Temp Pulse Pulse BP BP BP Pulse Ox 02/09/20 11:27 143/64 H 02/09/20 10:40 98.4 F 02/09/20 10:05 103 H 104 H 143/81 H 160/84 H 02/09/20 08:00 96 02/09/20 07:35 98.9 F 02/09/20 03:33 98.3 F Pulse Ox Pulse Ox 02/09/20 11:27 02/09/20 10:40 02/09/20 10:05 94 L 97 02/09/20 08:00 02/09/20 07:35 02/09/20 03:33 Weight Admit Weight 172 lb Weight 183 lb 12.8 oz Most Recent Monitor Data Heart Rate from ECG 81 NIBP 130/66 NIBP BP-Mean 87 Respiration from ECG 16 SpO2 98 I&O: 02/08/20 02/09/20 02/10/20 06:59 06:59 06:59 Intake Total 1026 792 Output Total 1325 700 Balance -299 92 Result Diagrams: 02/09/20 03:28 02/09/20 03:28 Additional Labs: Accuchecks 02/09/20 02/09/20 02/08/20 10:16 05:48 19:51 POC Glucose 221 H 217 H 223 H 02/08/20 16:41 POC Glucose 232 H Hospitalist ROS - Medication Medications: Active Medications Generic Name Dose Route Start Last Admin Trade Name Freq PRN Reason Stop Dose Admin Albuterol Sulfate 2 puff 02/02/20 19:00 02/09/20 08:19 Proventil Hfa INH 2 puff [id number] FUNMI Administration Amiodarone HCl 200 mg 02/03/20 09:00 02/09/20 08:16 Cordarone PO 200 mg DAILY FUNMI Administration Apixaban 2.5 mg 01/26/20 21:00 02/09/20 08:17 Eliquis PO 2.5 mg BID FUNMI Administration Aspirin 81 mg 01/27/20 09:00 02/09/20 08:17 Aspirin Chewable PO 81 mg DAILY FUNMI Administration Gabapentin 300 mg 02/03/20 21:00 02/09/20 08:16 Neurontin PO 300 mg BID FUNMI Administration Guaifenesin 200 mg 01/28/20 20:00 02/01/20 23:11 Organ-I Nr PO 200 mg Q4H PRN Administration Cough Guaifenesin 600 mg 02/02/20 09:00 02/09/20 08:16 Mucinex PO 600 mg Q12HR FUNMI Administration Dobutamine HCl/Dextrose 500 mg 250 mls @ 0 mls/hr 01/26/20 21:00 02/07/20 12: 59 / Device IVPB 250 mls INF FUNMI Administration Protocol As Directed Potassium Chloride 40 meq/ 100 mls @ 50 mls/hr 01/27/20 05:08 01/28/20 06:08 Device IVPB 100 mls ASDIR PRN Administration FOR SERUM K+ 2.5 - 3.5 Magnesium Sulfate 1 gm/ Sodium 102 mls @ 102 mls/hr 01/27/20 05:08 01/27/20 09:02 Chloride IV 102 mls PRN PRN Administration MAG LEVEL 1.4 - 2.0 Insulin Human Regular 0 units 01/30/20 00:58 02/09/20 11:27 Humulin R SC 3 unit .MILD SLIDING SCALE PRN Administration Mild Correctional Scale Insulin Human Regular 0 units 01/30/20 00:58 02/08/20 20:03 Humulin R SC 2 unit .BEDTIME SLIDING SC PRN Administration Bedtime Correctional Scale Levofloxacin 750 mg 02/07/20 06:00 02/09/20 05:45 Levaquin PO 02/09/20 23:59 750 mg 0600 FUNMI Administration Levothyroxine Sodium 25 mcg 02/08/20 09:00 02/09/20 08:16 Synthroid PO 25 mcg DAILY FUNMI Administration Magnesium Oxide 400 mg 01/27/20 05:08 02/03/20 06:11 Magnesium Oxide PO 400 mg BIDPRN PRN Administration FOR SERUM MAG 1.4 - 2.0 Magnesium Oxide 800 mg 02/05/20 21:00 02/09/20 08:16 Magnesium Oxide PO 800 mg BID FUNMI Administration Mometasone Furoate/Formoterol Fumar 2 puff 02/02/20 18:30 02/09/20 08:18 Dulera 100 Mcg/5 Mcg Inhaler INH 2 puff BID-RT FUNMI Administration Ondansetron HCl 4 mg 02/07/20 09:34 02/07/20 09:40 Zofran Odt PO 4 mg Q8H PRN Administration Nausea/Vomiting Pantoprazole Sodium 40 mg 02/02/20 09:00 02/09/20 08:16 Protonix PO 40 mg DAILY FUNMI Administration Potassium Chloride 40 meq 01/27/20 05:08 01/27/20 21:30 Klor-Con PER TUBE 40 meq ASDIR PRN Administration FOR SERUM K+ 2.5-3.5 Prednisone 10 mg 02/09/20 09:00 02/09/20 09:15 Prednisone PO 02/10/20 09:01 Not Given DAILY FUNMI Senna/Docusate Sodium 2 tab 02/08/20 21:00 02/09/20 08:16 Senokot S PO 2 tab BID FUNMI Administration Sertraline HCl 25 mg 01/27/20 09:00 02/09/20 08:16 Zoloft PO 25 mg DAILY FUNMI Administration Sodium Chloride 10 ml 01/27/20 23:26 02/01/20 20:17 Flush - Normal Saline IVF 10 ml PRN PRN Administration Saline Flush Spironolactone 25 mg 02/09/20 08:00 02/09/20 08:16 Aldactone PO 25 mg QAM-WM FUNMI Administration Tramadol HCl 50 mg 02/07/20 14:37 02/08/20 02:21 Ultram PO 50 mg Q6H PRN Administration Moderate to Severe Pain (6-10) - Exam General Appearance: NAD, awake alert Eye: PERRL ENT: normocephalic atraumatic Neck: supple Heart: RRR Respiratory: CTAB, normal chest expansion Gastrointestinal: soft, normal bowel sounds Hosp A/P - Plan Sepsis 2/2 PNA Acute on chronic Hypoxic resp failure Acute resP failure requiring intubation COPD exacerbation Hypovolumic shock cannot be ruled out, as required pressor -flu neg - COVID-19 neg - ucux and bl griselda - no growth so far - s/p extubation, on 5L nasal cannula - Chest X ray 01/29 shows multifocal pneumonia. Was on IV levaquin and ceftriaxone for five days, then restarted levaquin 02/01 per infectious disease recommendations due to hypotension and leukocytosis and additional pressor requirement - doxycycline discontinued by pulmonary 02/04 - procalcitonin negative. EMILEE negative, ANCA test pending - COVID negative x 2 - on oral prednisone until 02/09 by pulmonary for COPD exacerbation ---------. reduced to 10mg daily /per pulm. 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 PNA and not CHF - no vol OL sxs and CXR LLL infilaterate, no pulm congestion -PO lasiz and bumx and diamax -restarted on anne,? stopped, spironolactone/coreg - to be weaned off levophed. 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 COIVD neg. d/w Dr. Kimble, it appears his persistent hypotension may not be cardiac related.- ------> He has mild jump in wbcs without temp. [cld be steroid induced] pt clinically looks non-toxic on prednisone and LQ for COPD exacerbation --talk to Dr. Clements --getting UA and CT chest as not sure of etiology for persistent hypotension [ his BP improved today but still on dobutamine], as he could not come out of pressor/dobutamine -being immuncocompromised, getting CMV, histo ag. --will fw on the results. constipation - scheduled stool softeners. once medically stable, pt wants to go home [ to his and children]
[2020-02-09 13:47] VITALS: BMI 29.6
[2020-02-09] MEDS: Carvedilol 6.25 MG TAB PO SCH (20:17)
[2020-02-09] MEDS: traMADol HCl 50 MG TAB PO PRN (20:18)
[2020-02-09] MEDS: Insulin Glargine 23 UNITS in Pre-Filled Syringe 1 EACH SC SCH (20:19)
[2020-02-10] MEDS: Albuterol 200 PUFF (6.7GM INHALER) INH SCH ×4 (01:21→18:22)
[2020-02-10] MEDS: DOBUTamine 500 mg/250 ml 500 MG in Premix Bag 1 BAG IVPB SCH (01:44)
[2020-02-10 04:57] LABS: Anion Gap 6 mmol/L (10-20); BUN (Urea Nitrogen) 36 mg/dL (8.4-25.7); Calc. Creatinine Clearance 73 mL/min (70-130); Calcium 9.7 mg/dL (7.8-10.44); Carbon Dioxide 28 mmol/L (23-31); Chloride 109 mmol/L (98-107); Estimated GFR-MDRD 81; Glucose 140 mg/dL (83-110); Potassium 4.2 mmol/L (3.5-5.1); Sodium 139 mmol/L (136-145)
[2020-02-10] MEDS: Mometasone 100 MCG/Formoterol 5 MCG 120 PUFF INHALER INH SCH ×2 (07:22→18:22)
[2020-02-10] MEDS: guaiFENesin ER 600 MG TAB PO SCH ×2 (08:48→21:55)
[2020-02-10] MEDS: Carvedilol 6.25 MG TAB PO SCH ×2 (08:48→21:56)
[2020-02-10] MEDS: Gabapentin 300 MG CAP PO SCH ×2 (08:50→21:57)
[2020-02-10] MEDS: Spironolactone 25 MG TAB PO SCH (08:50)
[2020-02-10] MEDS: Levothyroxine Sodium 25 MCG TAB PO SCH (08:50)
[2020-02-10] MEDS: Amiodarone 200 MG TAB PO SCH (08:51)
[2020-02-10] MEDS: Senokot S 8.6-50 MG TAB PO SCH ×2 (08:51→21:56)
[2020-02-10] MEDS: Apixaban 2.5 MG TAB PO SCH ×2 (08:51→21:56)
[2020-02-10] MEDS: Magnesium Oxide 400 MG TAB PO SCH ×2 (08:52→21:56)
[2020-02-10] MEDS: predniSONE 20 MG TAB PO SCH (08:52)
[2020-02-10] MEDS: Aspirin Chewable 81 MG TAB PO SCH (08:52)
[2020-02-10 09:08] LABS: #Lymphocytes 0.7 thou/uL (1.20-3.40); #Monocytes 0.5 thou/uL (0.11-0.59); #Neutrophils 12.3 thou/uL (1.40-6.50); %Basophils 0.1 % (0.0-1.0); %Eosinophils 0.3 % (0.0-10.0); %Monocytes 3.9 % (0.0-10.0); %Neutrophils 90.7 % (42.0-75.0); Hemoglobin 8.6 g/dL (14.0-18.0); Mean Corpuscular HGB CONC 31.9 g/dL (32.0-36.0); Mean Corpuscular Hemoglobin 29.7 pg (27.0-31.0); Mean Corpuscular Volume 93.1 fL (78.0-98.0); Mean Platelet Volume 7.6 fL (7.4-10.4); Platelet Count 235 thou/uL (130-400); RBC Distribution Width 17.1 % (11.5-14.5); Red Blood Cell (RBC) Count 2.91 mill/uL (4.70-6.10); White Blood Cell (WBC) Count 13.5 thou/uL (4.8-10.8)
--- NOTE | 2020-02-10 09:37 | PRG ---
DATE OF SERVICE: 02/10/2020 SUBJECTIVE: Donny Rogers this morning remains in the MICU without any complaints, he is still on Dobutrex. OBJECTIVE: VITAL SIGNS: Blood pressure 109/63, pulse 70, respirations 18, saturations 93%. EXTREMITIES: No edema. GENERAL: Denies any discomfort. CHEST: No wheezing or crackles. CARDIAC: Normal S1 and S2. No gallops. ABDOMEN: No mass. LABORATORY DATA: His lytes are normal. Labs are unremarkable. IMPRESSION: Depressed EF, congestive heart failure, though clearly he has much improved. Chronic obstructive pulmonary disease, stable. PLAN: Consider discontinuing his daily lab. Continue with PT, supportive care. Eventually home once we are able to discontinue his Dobutrex. We will follow. Job ID: [id number]
--- NOTE | 2020-02-10 10:32 | PRG ---
DATE OF SERVICE: 02/10/2020 SERVICE: [facility]. SUBJECTIVE: In general, Mr. Donny Rogers had a good day. He was able to walk around the unit. His blood pressure slowly karin over the day. Now, the systolic blood pressure is about 130 to 140s. He basically has returned to his baseline. He denies any fever, chills, or cough. REVIEW OF SYSTEMS: GENERAL: He has no fever, chills, or cough. HEENT: He has no change in vision, hearing, or swallowing. PULMONARY: Breathing easier. CARDIOVASCULAR: There is no palpitation or syncope. GI: He still has some constipation. : He is urinating well. NEUROLOGIC: There are no focal deficits or weaknesses. MUSCULOSKELETAL: He has chronic lower back pain. INTEGUMENT: He has a decubitus breakdown, it is chronic. CARDIAC MEDICATIONS: Include: 1. Amiodarone 200 mg daily. 2. Apixaban 2.5 mg b.i.d. 3. Dobutamine currently at 2.5 mcg/kg per minute, but this will be titrated down to off today. 4. Carvedilol 6.25 mg b.i.d. 5. Spironolactone at 25 mg daily. 6. Aspirin 81 mg daily. PHYSICAL EXAMINATION: CARDIOVASCULAR STUDIES: Telemetry was reviewed. He is mainly A-sensed and V- paced or A-paced and V-paced. There is PVC, but there is no ventricular tachycardia. So, we avoided torsade even though he was on levofloxacin. Of note, we used a combination of A-suppression and V-suppression on his pacemaker to suppress both the atrial and ventricular arrhythmia. VITAL SIGNS: Currently, heart rate 84 and blood pressure 145/77. GENERAL: He is alert and conversational, able to speak in medium length sentences. However, once with oxygen off, his saturation lowers about 91% to 92%. On 1 L oxygen, his oxygen saturation about 95% to 96%. HEENT: Shows EOMI. Oropharynx is moist. There is no erythema, no exudate. NECK: JVP is about 10 cm with a positive hepatojugular reflux. PULMONARY: There is good air movement bilaterally, mostly clear to auscultation bilaterally. There are slight bibasilar crackles developing. CARDIAC: Regular rate and rhythm with occasional irregularity with 2/6 diastolic murmur at the right sternal border and 3/6 holosystolic murmur at apex, radiation to the left axilla. ABDOMEN: Soft, nontender. Positive bowel sounds. EXTREMITIES: Lower extremities are warm and well perfused. Positive DP bilaterally. There is no edema. LABORATORY DATA: There is no CBC done today. Blood chemistries; sodium 139, potassium 4.2, bicarb 28, BUN 36, and creatinine is 0.9. ASSESSMENT: 84-year-old gentleman is recovering well from his recent combination of pneumonia-like - sepsis-like event. He has redeveloped vascular tone to support titrating off the last bit of dobutamine. At this point, we can transition him from drips down to starting off his usual heart failure medications. At this point, we are working very close to discharge. Please see the following for recommendations. RECOMMENDATIONS: 1. Decrease dobutamine down to 1.25 mcg/kg per minute for 3 hours. 2. If he is able to sustain his blood pressure of 100 mmHg, turn it off. 3. If he is able to sustain blood pressure well off dobutamine for 3 hours, he can be transitioned to telemetry. 4. Torsemide 10 mg daily after lunch. He will need continued dose of diuretic. 5. We will hold off reinitiation of Entresto for now. If he demonstrates that he can hold his pressure and being hypertensive for one day, then we will reinitiate Entresto at half dose. 6. If every thing goes well, he can be discharged tomorrow. 7. We will wait for the antibiotic per Infectious Disease consultation. 8. Please consider providing the patient for oxygen overnight at home. I believe, with oxygen overnight, that would decrease the cardiac stress overnight, that would help him to stay at home and not have to be readmitted. It has been a pleasure taking care of Mr. Donny Rogers. If you have any questions, please give me a call. Job ID: [id number] [facility]
[2020-02-10] MEDS: Insulin Regular 300 UNITS/3 ML VIAL SC PRN ×3 (10:46→21:57)
--- NOTE | 2020-02-10 12:04 | PDOC.HOSPP ---
- Subjective Encounter Date: 02/10/20 Encounter Time: 08:50 Subjective: back hurts, usually gets shots q 2 months, ambulated w.. 1 li O2 and satus at 90 %. d/w Dr. Kimble. - Objective Vital Signs & Weight: Vital Signs (12 hours) Temp Pulse Pulse Pulse Resp BP BP 02/10/20 11:10 97.8 F 02/10/20 10:02 80 81 124/59 L 02/10/20 08:48 109/63 02/10/20 08:00 02/10/20 07:22 81 16 02/10/20 07:18 97.8 F 02/10/20 03:37 99.0 F BP Pulse Ox Pulse Ox Pulse Ox 02/10/20 11:10 02/10/20 10:02 111/72 97 99 02/10/20 08:48 02/10/20 08:00 89 L 02/10/20 07:22 96 02/10/20 07:18 02/10/20 03:37 Weight Admit Weight 172 lb 6.424 oz Weight 185 lb 3.2 oz Most Recent Monitor Data Heart Rate from ECG 80 NIBP 123/52 NIBP BP-Mean 75 Respiration from ECG 18 SpO2 94 I&O: 02/09/20 02/10/20 02/11/20 06:59 06:59 06:59 Intake Total 792 475 Output Total 700 1320 Balance 92 -845 Result Diagrams: 02/10/20 08:58 02/10/20 04:27 Additional Labs: Accuchecks 02/10/20 02/10/20 02/09/20 10:34 05:54 19:52 POC Glucose 234 H 114 H 280 H 02/09/20 17:16 POC Glucose 172 H Hospitalist ROS - Medication Medications: Active Medications Generic Name Dose Route Start Last Admin Trade Name Freq PRN Reason Stop Dose Admin Albuterol Sulfate 2 puff 02/02/20 19:00 02/10/20 07:24 Proventil Hfa INH 2 puff [id number] FUNMI Administration Amiodarone HCl 200 mg 02/03/20 09:00 02/10/20 08:51 Cordarone PO 200 mg DAILY FUNMI Administration Apixaban 2.5 mg 01/26/20 21:00 02/10/20 08:51 Eliquis PO 2.5 mg BID FUNMI Administration Aspirin 81 mg 01/27/20 09:00 02/10/20 08:52 Aspirin Chewable PO 81 mg DAILY FUMNI Administration Carvedilol 6.25 mg 02/09/20 21:00 02/10/20 08:48 Coreg PO 6.25 mg BID FUNMI Administration Gabapentin 300 mg 02/03/20 21:00 02/10/20 08:50 Neurontin PO 300 mg BID FUNMI Administration Guaifenesin 200 mg 01/28/20 20:00 02/01/20 23:11 Organ-I Nr PO 200 mg Q4H PRN Administration Cough Guaifenesin 600 mg 02/02/20 09:00 02/10/20 08:48 Mucinex PO 600 mg Q12HR FUNMI Administration Dobutamine HCl/Dextrose 500 mg 250 mls @ 2.93 mls/hr 01/26/20 21:00 02/10/20 01:44 / Device IVPB 250 mls INF FUNMI Administration Protocol 1.25 MCG/KG/MIN Potassium Chloride 40 meq/ 100 mls @ 50 mls/hr 01/27/20 05:08 01/28/20 06:08 Device IVPB 100 mls ASDIR PRN Administration FOR SERUM K+ 2.5 - 3.5 Magnesium Sulfate 1 gm/ Sodium 102 mls @ 102 mls/hr 01/27/20 05:08 01/27/20 09:02 Chloride IV 102 mls PRN PRN Administration MAG LEVEL 1.4 - 2.0 Insulin Glargine 23 units/ 0.23 mls @ 0 mls/hr 02/09/20 21:00 02/09/20 20:19 Miscellaneous Medication SC 0.23 mls HS FUNMI Administration Insulin Human Regular 0 units 01/30/20 00:58 02/10/20 10:46 Humulin R SC 4 unit .MILD SLIDING SCALE PRN Administration Mild Correctional Scale Insulin Human Regular 0 units 01/30/20 00:58 02/09/20 20:19 Humulin R SC 3 unit .BEDTIME SLIDING SC PRN Administration Bedtime Correctional Scale Levothyroxine Sodium 25 mcg 02/08/20 09:00 02/10/20 08:50 Synthroid PO 25 mcg DAILY FUNMI Administration Magnesium Oxide 400 mg 01/27/20 05:08 02/03/20 06:11 Magnesium Oxide PO 400 mg BIDPRN PRN Administration FOR SERUM MAG 1.4 - 2.0 Magnesium Oxide 800 mg 02/05/20 21:00 02/10/20 08:52 Magnesium Oxide PO 800 mg BID FUNMI Administration Mometasone Furoate/Formoterol Fumar 2 puff 02/02/20 18:30 02/10/20 07:22 Dulera 100 Mcg/5 Mcg Inhaler INH 2 puff BID-RT FUNMI Administration Ondansetron HCl 4 mg 02/07/20 09:34 02/07/20 09:40 Zofran Odt PO 4 mg Q8H PRN Administration Nausea/Vomiting Pantoprazole Sodium 40 mg 02/02/20 09:00 02/10/20 08:50 Protonix PO 40 mg DAILY FUNMI Administration Potassium Chloride 40 meq 01/27/20 05:08 01/27/20 21:30 Klor-Con PER TUBE 40 meq ASDIR PRN Administration FOR SERUM K+ 2.5-3.5 Potassium Chloride 20 meq 02/10/20 09:00 02/10/20 08:48 Klor-Con PO 20 meq DAILY FUNMI Administration Senna/Docusate Sodium 2 tab 02/08/20 21:00 02/10/20 08:51 Senokot S PO 2 tab BID FUNMI Administration Sertraline HCl 25 mg 01/27/20 09:00 02/10/20 08:51 Zoloft PO 25 mg DAILY FUNMI Administration Sodium Chloride 10 ml 01/27/20 23:26 02/01/20 20:17 Flush - Normal Saline IVF 10 ml PRN PRN Administration Saline Flush Spironolactone 25 mg 02/09/20 08:00 02/10/20 08:50 Aldactone PO 25 mg QAM-WM FUNMI Administration Tramadol HCl 50 mg 02/07/20 14:37 02/09/20 20:18 Ultram PO 50 mg Q6H PRN Administration Moderate to Severe Pain (6-10) - Exam General Appearance: NAD, awake alert Eye: PERRL Neck: supple Heart: RRR Respiratory: CTAB, normal chest expansion Gastrointestinal: soft, normal bowel sounds Neurological: no focal deficits Hosp A/P - Plan Sepsis 2/2 PNA Acute on chronic Hypoxic resp failure Acute resP failure requiring intubation COPD exacerbation Hypovolumic shock cannot be ruled out, as required pressor -flu neg - COVID-19 neg - ucux and bl griselda - no growth so far - s/p extubation, on 5L nasal cannula - Chest X ray 01/29 shows multifocal pneumonia. Was on IV levaquin and ceftriaxone for five days, then restarted levaquin 02/01 per infectious disease recommendations due to hypotension and leukocytosis and additional pressor requirement - doxycycline discontinued by pulmonary 02/04 - procalcitonin negative. EMILEE negative, ANCA test pending - COVID negative x 2 - on oral prednisone until 02/09 by pulmonary for COPD exacerbation ---------. reduced to 10mg daily /per pulm. 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 PNA and not CHF - no vol OL sxs and CXR LLL infilaterate, no pulm congestion -PO lasiz and bumx and diamax -restarted on anne,? stopped, spironolactone/coreg 5th - to be weaned off levophed. Back pain - secondary to DJD - continue gabapentin 300 mg bid - oxycodone prn for severe pain---d/c'd #Pacemaker s/p AICD #History of VT and Torsades - continue eliquis - continue amiodarone to 200 mg daily Type II Diabetes - HbA1C 6.8 - continue lantus 19 units qhs Anemia -stable Hypothyroidism -continue levothyroxine constipation - scheduled stool softeners. BP holding up, started on torsemide y'day and plan to start entresto today, if he can be off pressor. and BP stable for few hrs, per Dr. kimble. P T. following with us. -DVt ppx- on eliquis for afib. COIVD neg. off abx Code status: full code once medically stable, pt wants to go home [ to his and children]
[2020-02-10] MEDS: Torsemide 10 MG TAB PO SCH (12:39)
[2020-02-10] MEDS: traMADol HCl 50 MG TAB PO PRN (18:12)
[2020-02-10] MEDS: Insulin Glargine 23 UNITS in Pre-Filled Syringe 1 EACH SC SCH (22:01)
[2020-02-11] MEDS: Albuterol 200 PUFF (6.7GM INHALER) INH SCH ×3 (00:36→14:11)
[2020-02-11 05:00] LABS: #Eosinphils 0.1 thou/uL (0.0-0.7); #Lymphocytes 0.8 thou/uL (1.20-3.40); #Monocytes 0.5 thou/uL (0.11-0.59); #Neutrophils 8.4 thou/uL (1.40-6.50); %Basophils 0.1 % (0.0-1.0); %Lymphocytes 7.7 % (21.0-51.0); %Monocytes 4.6 % (0.0-10.0); %Neutrophils 86.6 % (42.0-75.0); Hemoglobin 8.7 g/dL (14.0-18.0); Mean Corpuscular HGB CONC 31.9 g/dL (32.0-36.0); Mean Corpuscular Hemoglobin 29.7 pg (27.0-31.0); Mean Platelet Volume 7.5 fL (7.4-10.4); Platelet Count 200 thou/uL (130-400); RBC Distribution Width 17.1 % (11.5-14.5); Red Blood Cell (RBC) Count 2.92 mill/uL (4.70-6.10); White Blood Cell (WBC) Count 9.7 thou/uL (4.8-10.8)
[2020-02-11] MEDS: Mometasone 100 MCG/Formoterol 5 MCG 120 PUFF INHALER INH SCH (06:47)
[2020-02-11] MEDS: Torsemide 10 MG TAB PO SCH (09:12)
[2020-02-11] MEDS: Senokot S 8.6-50 MG TAB PO SCH (09:13)
[2020-02-11] MEDS: Gabapentin 300 MG CAP PO SCH (09:14)
[2020-02-11] MEDS: Magnesium Oxide 400 MG TAB PO SCH (09:14)
[2020-02-11] MEDS: Aspirin Chewable 81 MG TAB PO SCH (09:15)
[2020-02-11] MEDS: Levothyroxine Sodium 25 MCG TAB PO SCH (09:15)
[2020-02-11] MEDS: Spironolactone 25 MG TAB PO SCH (09:15)
[2020-02-11] MEDS: Amiodarone 200 MG TAB PO SCH (09:16)
[2020-02-11] MEDS: Carvedilol 6.25 MG TAB PO SCH (09:16)
[2020-02-11] MEDS: guaiFENesin ER 600 MG TAB PO SCH (09:16)
[2020-02-11] MEDS: Apixaban 2.5 MG TAB PO SCH (09:17)
[2020-02-11 09:24] LABS: ALT (SGPT) 14 U/L (8-55); AST (SGOT) 13 U/L (5-34); Albumin 3.1 g/dL (3.4-4.8); Alkaline Phosphatase 54 U/L (40-110); Anion Gap 10 mmol/L (10-20); BUN (Urea Nitrogen) 42 mg/dL (8.4-25.7); Bilirubin, Total 0.4 mg/dL (0.2-1.2); Calc. Creatinine Clearance 58 mL/min (70-130); Calcium 9.5 mg/dL (7.8-10.44); Carbon Dioxide 29 mmol/L (23-31); Chloride 104 mmol/L (98-107); Estimated GFR-MDRD 62; Globulin 2.2 g/dL (2.4-3.5); Glucose 75 mg/dL (83-110); Magnesium 2.4 mg/dL (1.6-2.6); Potassium 4.1 mmol/L (3.5-5.1); Protein, Total 5.3 g/dL (5.8-8.1); Sodium 139 mmol/L (136-145)
--- NOTE | 2020-02-11 09:58 | PRG ---
DATE OF SERVICE: 02/11/2020 SUBJECTIVE: An 84-year-old gentleman, who is doing better this morning. He is eager to go home. OBJECTIVE: VITAL SIGNS: Temperature 97, pulse 70, respirations 18, and blood pressure 109/59. CHEST: Decreased breath sounds. No wheezing. CARDIAC: Normal S1 and S2. No gallops. ABDOMEN: Soft. LABORATORY DATA: White count is normal. Creatinine is minimally elevated, probably from the diuretics. BNP is mildly elevated at 465. ASSESSMENT: Respiratory failure, mild congestive heart failure, and chronic obstructive pulmonary disease. PLAN: He has enough medication to go home on. He is going to call me in the office at any time he needs his medication. Job ID: [id number]
--- NOTE | 2020-02-11 10:55 | PRG ---
DATE OF SERVICE: 02/11/2020 SUBJECTIVE: Mr. Donny Rogers had an excellent day. He was able to ambulate around the hallways. Since he was able to tolerate titrating of dobutamine maintaining systolic blood pressure over 100, he was moved from the [facility] down to the floor. Since down on the floor, he was able to maintain his blood pressure over 95 and tolerating both combination of spironolactone and torsemide 10 mg. This morning , he says he feels well and breaths well, ate a good breakfast. He is ready to go home. REVIEW OF SYSTEMS: GENERAL: No fever, chills, or productive cough. HEENT: There were changes in hearing and swallowing. PULMONARY: See HPI. CARDIAC: There is no palpitation, chest pain, or syncope. GI: He is eating well. : He is able to urinate well. NEUROLOGIC: There are no focal deficits or weaknesses. MUSCULOSKELETAL: He has chronic lower back pain. He wants to see Dr. Decker for injections. INTEGUMENT: There are no new skin breakdowns. MEDICATIONS: His cardiac medications include: 1. Amiodarone 200 mg daily. 2. Apixaban 2.5 mg daily. 3. Aspirin 81 mg daily. 4. Carvedilol 6.25 mg daily. 5. Magnesium oxide 800 mg twice a day. 6. Potassium chloride 20 mEq daily. 7. Spironolactone 25 mg daily. 8. Torsemide 10 mg daily. 9. Potassium 20 mEq daily. PHYSICAL EXAMINATION: VITAL SIGNS: His telemetry was reviewed, is mainly A paced V paced or A sensed V paced, rate about 80. There are no concerning arrhythmias. Last set of vitals are heart rate paced at 80 beats per minute, blood pressure 109/59, and oxygen saturation is 93% on room air. GENERAL: He is alert and conversational, resting comfortably, reclining in bed. He is able to speak in medium length sentences without being short of breath. HEENT: Show EOMI. Oropharynx benign. There is moist mucosa without erythema. No exudate. NECK: His JVP is about 9 cm with positive hepatojugular reflux. PULMONARY: He has good air movement bilaterally. There is no wheeze. Very, very slight crackles at very bottom of the bases. This is the most excellent lung sounds the best yet. CARDIAC: Regular rate and rhythm with occasional irregularity. There is 2/6 diastolic murmur at the right sternal border. There is also 2/6 holosystolic murmur at apex with radiation to the left axilla. ABDOMEN: Soft and nontender. Positive bowel sounds. EXTREMITIES: Lower extremity is warm and well perfused. Positive DPs. No edema. LABORATORY VALUES: This morning show white cell count 9.7 this is decreased, hemoglobin 8.7, hematocrit at 27, and platelets 200. For unknown reason, there is no chemistry this morning. ASSESSMENT: 84-year-old gentleman has recovered from combination pneumonia-sepsis like event. He still remains in a bit of vasodilatory state. His usual heart failure medication cannot be resumed at this point. Instead, we will go on the lower doses and we will need to be titrated up eventually over time. This is a summary of all the events. Mr. Ken nunez is hypertensive, systolic blood pressure about 130 while being on Carvedilol 12.5 twice a day and also Entresto. He also takes torsemide about 20 daily. Five days before admission, he developed productive cough and fever and became lethargic. He also had diarrhea. His weight decreased from 185 pounds down to 180 pounds. During the visit to Rheumatology, he looks so ill that triggered a transfer to the ER. He presented in the ER with a blood pressure in the low 80s, which is way out of the norm and also febrile. He required norepinephrine, dobutamine, IVF, and albumin to bring the pressure back up. He had a high white cell count, bilateral infiltrates on chest x-ray. He also had elevated lactate. He was mentally altered. ABG showed pH of 7.26 with high pCO2 72. He was then intubated and ventilated. Broad-spectrum antibiotics were used. Eventually, norepinephrine was able to be titrated off. COVID-19 test was negative. Eventually, he was extubated and an attempt was the switch from dobutamine to milrinone. With stopping of the levofloxacin, after 24 hours it quickly dropped his blood pressure down into the 70s again. At that point, he required resumption of norepinephrine and dobutamine to bring his pressure back up. Antibiotics were restarted and white cell count came back down. He again was able to titrate off the norepinephrine again. Since then, he had a slow, but steady recovery. Eventually, dobutamine was able to be titrated off yesterday. The patient able to maintain his blood pressure, feeling well and breathing well. He is ready to go home. His heart failure medications will need to be slowly added back on and increased over a period of time as an outpatient. RECOMMENDATIONS: 1. Carvedilol 6.25 mg twice a day. 2. Amiodarone 200 mg daily. 3. Apixaban, which is Eliquis 2.5 mg daily. 4. Aspirin 81 mg daily. 5. Spironolactone 25 mg daily. 6. Torsemide 10 mg every other day. 7. Magnesium oxide 800 mg twice a day. 8. Potassium chloride supplement at 20 mEq daily. 9. Please draw complete metabolic panel, magnesium, and BNP now. This is needed to know what his discharge status is and all the other outpatient regimen followed that. 10. Please ensure that the patient has home health care when he goes home. He will need weekly labs. The weekly labs will include CBC, complete metabolic, magnesium, and BNP. 11. Please carefully instruct the patient to weigh himself daily after getting up in the morning wearing similar amount of clothing and after bathroom use. 12. Please instruct the patient to record his blood pressure 1 hour after medication daily. 13. Please instruct the patient to call Heart Failure Clinic if 3 pounds of weight gain in one day or 5 pounds of weight gain in one week. 14. Of note, the patient did have 2 episodes of torsades. We were able to eliminate this with turning on his BUCKET CHUCKER-D device with atrial arrhythmia suppression and also ventricular ectopy suppression. Together with aggressive replacement of potassium and magnesium, we were able to eliminate the torsades while being on levofloxacin. Thus, it is noted that he does has this potential, so this will be something for the future to be notified all this. It has been a pleasure taking care of Mr. Donny Rogers. If you have any questions, please give me a call. Job ID: [id number] MTDD
[2020-02-11 12:15] VITALS: BP 102/57; TEMP 97.6
--- NOTE | 2020-02-11 12:23 | DIS ---
DATE OF ADMISSION: 01/26/2020 DATE OF DISCHARGE: 02/11/2020 DISCHARGE DIAGNOSES: 1. Sepsis with septic shock secondary to community-acquired pneumonia with suspected gram-positive cocci, resolved. 2. Acute hypoxic hypercapnic respiratory failure, status post mechanical ventilation, resolved. 3. Ischemic cardiomyopathy with ejection fraction of 40% to 45%. 4. Ventricular tachycardia/torsades, resolved. 5. Diabetes mellitus type 2, insulin requiring. 6. Hypothyroidism. 7. Coronary artery disease, chronic and stable. 8. Deconditioning. 9. Hypotension. CONSULTATIONS: 1. Dr. Kimble with Heart Failure Service. 2. Dr. Clements with Infectious Disease Service. 3. Dr. Melton with Pulmonology Critical Care Service. PERTINENT LABORATORY AND X-RAY FINDINGS: Potassium ranged between 2.6 to 5.1, hemoglobin A1c 6.8, 01/31/2020. Lactic acid level ranged between 0.7 and 2.4. Magnesium level ranged between 1.6 to 2.4. BNP ranged between 465 and 602. Procalcitonin 0.05. TSH 5.88. CBC showed a white blood cell count ranging between 8.0 and 15.4, hemoglobin ranged between 8.6 and 10.9. EMILEE screen negative, 02/03/2020. COVID-19, PCR negative x2, 01/26/2020 and 02/02/2020. Histoplasma antigen less than 0.5. Urinary Streptococcus pneumonia antigen negative 01/27/2020. Blood cultures x2 dated 01/26/2020, showed no growth at 5 days. Urine culture dated 01/26/2020, showed no growth at 48 hours. Influenza A and B antigen dated 01/26/2020 negative. Respiratory culture dated 02/01/2020, showed moderate normal respiratory genevieve. Respiratory viral panel dated 02/02/2020, negative. Urine culture dated 02/04/2020, showed no growth at 48 hours. Portable chest x-ray dated 01/26/2020, showed cardiomegaly without evidence of congestive heart failure. Chronic lung parenchymal changes noted. 2D transthoracic echocardiogram dated 01/30/2020, showed ejection fraction of 40% to 45%. Moderate mitral regurgitation, moderate aortic stenosis, moderate aortic regurgitation, severe tricuspid valve regurgitation. CT of the chest dated 02/02/2020, showed moderate bilateral pleural effusions with associated atelectasis. HOSPITAL COURSE: The patient was initially admitted after initially presenting with generalized weakness, altered mental status, and respiratory distress. The patient underwent extensive evaluation including initial chest imaging and concern for infectious process. The patient was noted with septic shock likely due to pneumonia. The patient was noted initially with left lower lobe infiltrates and associated white blood cell count of 15,000 with 87% neutrophils. The patient was also noted with initial lactic acid level of 2.4. The patient was placed on a general sepsis protocol and given IV fluid resuscitation per protocol. The patient was ruled out for COVID-19 screening x2 during the hospital course. Due to the patient's presentation, the patient was placed on mechanical ventilation and monitored in the critical care unit and followed by the Critical Care Team. The patient remained on sedation and received pressor support with Levophed and dobutamine. The patient also continued to receive broad-spectrum IV antibiotic therapy with all cultures showing no growth to date as stated previously. The patient has slowly weaned off mechanical ventilation and pressor support with adjustments to his chronic medication regimen including treatment for heart failure. The patient was noted with ejection fraction of 40% to 45% on echocardiogram evaluation with titration of his Coreg and diuretic therapy. The patient was monitored with stable vital signs through the remainder of the hospital course with stable weights documented in the mid 180s range. The patient currently on room air and not requiring oxygen supplementation. I have examined the patient at the time of discharge and discussed followup instructions. The patient verbalizes understanding and in agreement, ready for discharge home 02/11/2020. DISCHARGE MEDICATIONS: 1. Allopurinol 100 mg p.o. b.i.d. 2. Alprazolam 0.25 mg p.o. at bedtime. 3. Amiodarone 200 mg p.o. daily. 4. Eliquis 2.5 mg p.o. b.i.d. 5. Aspirin 81 mg p.o. daily. 6. Dexilant 30 mg p.o. daily. 7. Ivana 180 mg p.o. daily. 8. Klor-Con 20 mEq p.o. daily. 9. Zoloft 25 mg p.o. daily. 10. Tramadol 50 mg p.o. q.6 hours p.r.n. 11. Ventolin HFA inhaler 2 puffs inhaled q.6 hours p.r.n. 12. Amiodarone 200 mg p.o. daily. 13. Coreg 6.25 mg p.o. b.i.d. 14. Neurontin 300 mg p.o. b.i.d. 15. Lantus 23 units subcutaneously at bedtime. 16. Synthroid 25 mcg p.o. daily. 17. Magnesium 800 mg p.o. b.i.d. 18. Dulera 2 puffs inhaled b.i.d. 19. Spironolactone 25 mg p.o. q.a.m. FOLLOWUP: The patient to follow up with his primary care provider, Dr. Merlin Bang. The patient will follow up with Dr. Kimble with heart failure services. CONDITION ON DISCHARGE: Fair. ACTIVITY: Ad jo, rolling walker for ambulation. DIET: Heart healthy. CODE STATUS: Full. DISPOSITION: Home, 02/11/2020. TIME SPENT: Total time preparing and coordinating discharge, 40 minutes. Job ID: [id number]
[2020-02-15 08:36] LABS: CMV DNA-PCR Test Positive < 200 IU/mL (Negative)
== END 2020-02-11 14:22 | disposition home health service (06) | DRG 870 ==
LOC: ERS 13:11 → CCU 14:51 → IMCU/EMU 02-05 11:25 → 2SE 02-10 18:04
PROVIDERS: ADMIT Internal Medicine; ATTEND Internal Medicine
PROC: 5A1955Z Respiratory Ventilation, Greater than 96 Consecutive Hours (ICD-10-PCS; principal; 2020-01-26)
PROC: 0BH18EZ Insertion of Endotracheal Airway into Trachea, Via Natural or Artificial Opening Endoscopic (ICD-10-PCS; 2020-01-26)
PROC: 02HV33Z Insertion of Infusion Device into Superior Vena Cava, Percutaneous Approach (ICD-10-PCS; 2020-01-26)
PROC: 3E043XZ Introduction of Vasopressor into Central Vein, Percutaneous Approach (ICD-10-PCS; 2020-01-26)
PROC: 4B02XTZ Measurement of Cardiac Defibrillator, External Approach (ICD-10-PCS; 2020-01-29)
PROC: 02HV33Z Insertion of Infusion Device into Superior Vena Cava, Percutaneous Approach (ICD-10-PCS; 2020-02-08)
PROC: B548ZZA Ultrasonography of Superior Vena Cava, Guidance (ICD-10-PCS; 2020-02-08)
DX: A41.89 Other specified sepsis (principal); J15.9 Unspecified bacterial pneumonia; R65.21 Severe sepsis with septic shock; R57.1 Hypovolemic shock; J96.21 Acute and chronic respiratory failure with hypoxia; J96.22 Acute and chronic respiratory failure with hypercapnia; I50.43 Acute on chronic combined systolic (congestive) and diastolic (congestive) heart failure; I47.2 Ventricular tachycardia; J44.0 Chronic obstructive pulmonary disease with (acute) lower respiratory infection; J44.1 Chronic obstructive pulmonary disease with (acute) exacerbation; N17.9 Acute kidney failure, unspecified; N39.0 Urinary tract infection, site not specified; I13.0 Hypertensive heart and chronic kidney disease with heart failure and stage 1 through stage 4 chronic kidney disease, or unspecified chronic kidney disease; E87.2 Acidosis; R04.2 Hemoptysis; I25.5 Ischemic cardiomyopathy; E03.9 Hypothyroidism, unspecified; I25.10 Atherosclerotic heart disease of native coronary artery without angina pectoris; I08.3 Combined rheumatic disorders of mitral, aortic and tricuspid valves; M06.9 Rheumatoid arthritis, unspecified; M10.9 Gout, unspecified; I48.91 Unspecified atrial fibrillation; G89.29 Other chronic pain; F32.9 Major depressive disorder, single episode, unspecified; F41.9 Anxiety disorder, unspecified; G20 Parkinson's disease; D63.1 Anemia in chronic kidney disease; N18.3 Chronic kidney disease, stage 3 (moderate); M47.9 Spondylosis, unspecified; T46 Poisoning by, adverse effect of and underdosing of agents primarily affecting the cardiovascular system; I49.3 Ventricular premature depolarization; E11.65 Type 2 diabetes mellitus with hyperglycemia; T38.0X5A Adverse effect of glucocorticoids and synthetic analogues, initial encounter; R31.9 Hematuria, unspecified; K59.00 Constipation, unspecified; Z95.1 Presence of aortocoronary bypass graft; Z88.0 Allergy status to penicillin; Z95.810 Presence of automatic (implantable) cardiac defibrillator; Z90.49 Acquired absence of other specified parts of digestive tract; Z79.899 Other long term (current) drug therapy; Z79.82 Long term (current) use of aspirin; Z79.4 Long term (current) use of insulin; Z87.891 Personal history of nicotine dependence; Z79.01 Long term (current) use of anticoagulants; I25.2 Old myocardial infarction; Z91.041 Radiographic dye allergy status; Z79.890 Hormone replacement therapy; Z88.8 Allergy status to other drugs, medicaments and biological substances
CPT/HCPCS: 36415; 36416; 36556; 36569; 71045; 71250; 80048; 80053; 81001; 81003; 82805; 83036; 83520; 83605; 83735; 83880; 84100; 84145; 84443; 85007; 85025; 85027; 86038; 86225; 86256; 86850; 86900; 86901; 87040; 87070; 87086; 87205; 87385; 87449; 87497; 87633; 87804; 93005; 93010; 93306; 93798; 94002; 94003; 94640; 94664; 96365; 96367; 96368; 99292; C1751; C9113; J0456; J0696; J1250; J1644; J1815; J1940; J1956; J2060; J2260; J2704; J2920; J3475; J3480; J3490; J7050; J7070; J7512; J7620; P9047; Q0162; Q0163; S0028; U0001

== ENCOUNTER 2020-02-29 10:36 | Inpatient (IN) | payer MEDICARE, OTHER ==
[2020-02-29 11:24] LABS: #Basophils 0.1 thou/uL (0.0-0.2); #Eosinphils 0.1 thou/uL (0.0-0.7); #Lymphocytes 1.9 thou/uL (1.20-3.40); #Monocytes 0.7 thou/uL (0.11-0.59); #Neutrophils 3.9 thou/uL (1.40-6.50); %Eosinophils 1.7 % (0.0-10.0); %Lymphocytes 27.8 % (21.0-51.0); %Monocytes 11.1 % (0.0-10.0); %Neutrophils 58.4 % (42.0-75.0); Hemoglobin 8.9 g/dL (14.0-18.0); Mean Corpuscular Hemoglobin 29.4 pg (27.0-31.0); Mean Platelet Volume 7.2 fL (7.4-10.4); Platelet Count 324 thou/uL (130-400); RBC Distribution Width 17.8 % (11.5-14.5); Red Blood Cell (RBC) Count 3.04 mill/uL (4.70-6.10); White Blood Cell (WBC) Count 6.7 thou/uL (4.8-10.8)
--- NOTE | 2020-02-29 11:33 | CT ---
Exam: Head CT without contrast HISTORY: Hypotension. Fall. Pain. COMPARISON: none FINDINGS: Hemorrhage: No intraparenchymal hemorrhage or extra-axial hematoma. Brain parenchyma: Cortical neri-white matter differentiation is preserved. No mass effect or midline shift. Basilar cisterns are patent.White matter hypodensities due to chronic small vessel ischemic changes Ventricular system: Ventricles and sulci are patent and symmetric. Calvarium: Intact Scalp: Subcutaneous emphysema involving the right temporal scalp and right chief of field operations space, presumed to be due to trauma. Sinuses and mastoid air cells: Adequate aeration. IMPRESSION: 1. No acute intracranial process or intracranial posttraumatic sequelae 2. Posttraumatic changes involving the left scalp and left chief of field operations space. Subcutaneous emphysema s uggesting scalp/soft tissue laceration
[2020-02-29 11:47] LABS: ALT (SGPT) 9 U/L (8-55); AST (SGOT) 13 U/L (5-34); Albumin 3.4 g/dL (3.4-4.8); Alkaline Phosphatase 81 U/L (40-110); Anion Gap 14 mmol/L (10-20); BUN (Urea Nitrogen) 21 mg/dL (8.4-25.7); Bilirubin, Total 0.7 mg/dL (0.2-1.2); CK (CPK) 19 U/L (30-200); Calc. Creatinine Clearance 0 mL/min (70-130); Calcium 8.7 mg/dL (7.8-10.44); Carbon Dioxide 26 mmol/L (23-31); Chloride 101 mmol/L (98-107); Estimated GFR-MDRD 45; Globulin 2.4 g/dL (2.4-3.5); Glucose 158 mg/dL (83-110); Lipase 21 U/L (8-78); Potassium 4.1 mmol/L (3.5-5.1); Protein, Total 5.8 g/dL (5.8-8.1); Sodium 137 mmol/L (136-145)
--- NOTE | 2020-02-29 12:00 | CT ---
CT lumbar spine noncontrast: 02/29/2020 HISTORY: 84-year-old male with acute, traumatic low back pain due to fall. FINDINGS: 5 lumbar-type vertebrae. Chronic-appearing mild anterior wedging of T12 and L1. Otherwise, the rest o f the vertebral body heights are maintained. Diffuse osteopenia lowers the sensitivity for the detection of nondisplaced and minimally displaced acute fractures. No definite acute fracture identif ied. There is high-grade degenerative disc disease with high-grade disc space narrowing and vacuum disc phenomenon, with varying degrees of endplate irregularity, and disc-osteophyte complexes encroac sam upon anterior aspect of spinal canal, at all levels from T12-L1 through L5-S1. There is high-grade neural foraminal stenosis on the right at L3-4, L4-5, and L5-S1; and on the left at L1-2, L2-3, L3-4, and L5-S1. There is multilevel high-grade facet DJD at the mid and lower levels bilaterally. T11-12: Moderate central stenosis. T12-L1: In addition to diffuse disc bulge, there is a central disc extrusion with superior migration of extruded disc material to the pedicle level of T12. Overall moderate to severe central spinal canal stenosis. L1-2: Moderate central spinal canal stenosis. L2-3: Degenerative facet hypertrophy plus central and bilateral paracentral broad-based disc-osteophy te complex, result in severe central spinal canal stenosis. Gas in the left paracentral and left lateral aspects of the spinal canal at the pedicle level of L3 represent inferiorly migrated extruded disc material. L3-4: Degenerative facet hypertrophy and diffuse disc bulge-osteophyte complex result in severe centr al spinal canal stenosis. L4-5: Asymmetrically severe right-sided facet DJD. No significant central spinal canal stenosis. L5-S1: Lateral recess stenosis bilaterally, especially on the right. Diffuse disc bulge. No high-grad e central stenosis. IMPRESSION: 1. No definite acute compression fracture identified. 2. High-grade lumbar spondylosis, with multilevel high-grade degenerative disc disease and facet oste oarthrosis. 3. Multilevel high-grade bilateral neural foraminal stenosis. 4. High-grade central spinal canal stenosis at several levels, worst at L3-4 and L2-3. 5. Several extruded disc herniations with migration. 6. Small left pleural effusion with adjacent left lower lobe atelectasis, incompletely imaged.
--- NOTE | 2020-02-29 12:01 | RAD ---
Chest one view HISTORY: Fall. Altered mental status. Hypotension. COMPARISON: 02/04/2020. FINDINGS: Cardiac silhouette is magnified and enlarged. Pulmonary vasculature upper limits of normal. Mediastinum is midline with postoperative changes, aortic calcification, and a multi lead left subcla vian cardiac electronic device. Blunting of the left lateral costophrenic angle with ill-defined parenchymal opacity at the left post erior lung base. No lobar consolidation or evidence of pneumothorax. IMPRESSION : Small left pleural effusion with left basilar atelectasis. Cardiomegaly. Atherosclerosis.
[2020-02-29] MEDS ORDERED: Ondansetron PF 4 MG/2 ML Vial IVP PRN (12:22)
[2020-02-29] MEDS ORDERED: Senokot S 8.6-50 MG TAB PO PRN (12:22)
[2020-02-29] MEDS ORDERED: HumaLOG 300 UNITS/3 ML VIAL SC PRN (12:22)
[2020-02-29] MEDS ORDERED: Guaifenesin DM 100-10/5 ML UDCUP PO PRN (12:22)
[2020-02-29] MEDS ORDERED: Dextrose 5% in Water 1,000 ML IV PRN (12:22)
[2020-02-29] MEDS ORDERED: traMADol HCl 50 MG TAB PO PRN (12:22)
[2020-02-29] MEDS ORDERED: Dextrose 50% Abboject 50 ML SYRINGE SLOW IVP PRN (12:22)
[2020-02-29] MEDS ORDERED: Bisacodyl 10 MG SUPP PR PRN (12:22)
[2020-02-29 12:23] LABS: Bilirubin Negative (Negative); Blood, Urine Negative (Negative); Clarity Clear (Clear); Glucose, Urine (Dipstick) Normal (Negative); Leukocyte Negative Leu/uL (Negative); Nitrite Negative (Negative); Protein, Urine (Dipstick) Negative (Neg-Trace); Urobilinogen Normal mg/dL (Less than 2)
--- NOTE | 2020-02-29 14:30 | HP ---
REASON FOR ADMISSION: Hypotension. HISTORY OF PRESENTING ILLNESS: The patient gives history of checking his blood pressure around 7 a.m. this morning. It was 64/48. He ate some breakfast and some cookies as well. He used his restroom and came back, still the pressure was low. He called his hotel night auditor, who asked him to come to emergency room. When EMS arrived, his systolic blood pressure had gone up to 80s. He also mentions that he fell yesterday when his legs got tangled with his rolling walker and hit back of his head. He uses a walker to ambulate. He has no dizziness. No complaints of chest pain, palpitation, PND, or orthopnea. The patient in fact wants to go home early tomorrow, so he can see Dr. Decker for epidural shot which he badly needs. He has known history of CHF and is on spironolactone. PAST MEDICAL AND SURGICAL HISTORY: The patient was hospitalized here early part of this month and was discharged on the after he was hospitalized for CHF exacerbation and sepsis. Echo done in January of this year showed EF of 40% to 45 %, moderate mitral regurgitation, aortic stenosis, and aortic regurgitation with severe tricuspid regurgitation, history of gout, coronary artery disease with prior CABG for 4-vessel disease 7 years back, chronic atrial fibrillation with prior ablations and cardioversions, benign prostatic hypertrophy, chronic back pain with epidural shots, COPD, asthma, hypertension, depression, anxiety, history of rheumatoid arthritis, AICD, appendectomy, cholecystectomy. PERSONAL HISTORY: Quit smoking in 1984, prior to which, has smoked heavily for nearly 30 years. Does not abuse alcohol or drugs. Lives with his girlfriend. FAMILY HISTORY: Mother of natural causes at the age of 89. Father was apparently killed at the age of 72. CODE STATUS: Full. Power of mft is his daughter, Ms. Álvarez. CURRENT MEDICATIONS: The patient is on; 1. Allopurinol 100 mg twice daily. 2. Alprazolam 0.25 mg p.o. at bedtime. 3. Amiodarone 200 mg p.o. daily. 4. Eliquis 2.5 mg twice daily. 5. Aspirin 81 mg p.o. daily. 6. Dexilant 30 mg p.o. daily. 7. Fexofenadine 180 mg daily. 8. Potassium chloride 20 mEq p.o. daily. 9. Sertraline 25 mg p.o. daily. 10. Ultram 50 mg p.o. q.6 hourly p.r.n. 11. Albuterol inhaler q.6 hourly p.r.n. 12. Coreg 6.25 mg twice daily. 13. Neurontin 300 mg p.o. twice daily. 14. Lantus 23 units subcu at bedtime. 15. Levothyroxine 25 mcg p.o. daily. 16. Magnesium oxide 800 mg twice daily. 17. Dulera inhaler twice daily. 18. Spironolactone 25 mg p.o. q.a.m. ALLERGIES: TO IODINE AND PENICILLIN. HE IS ALSO ALLERGIC TO STATIN. REVIEW OF SYSTEMS: CONSTITUTIONAL: Negative for weight loss or gain, ability to conduct usual activities. SKIN: Negative for rash, itching. EYES: Negative for double vision, pain. ENT/MOUTH: Negative for nose bleeding, neck stiffness, pain, tenderness. CARDIOVASCULAR: Negative for palpitations, dyspnea on exertion, orthopnea. RESPIRATORY: Negative for shortness of breath, wheezing, cough, hemoptysis, fever or night sweats. GASTROINTESTINAL: Negative for poor appetite, abdominal pain, heartburn, nausea , vomiting, constipation, or diarrhea. GENITOURINARY: Negative for urgency, frequency, dysuria, nocturia. MUSCULOSKELETAL: Negative for pain, swelling. NEUROLOGIC/PSYCHIATRIC: Negative for anxiety, depression. ALLERGY/IMMUNOLOGIC: Negative for skin rash, bleeding tendency. PHYSICAL EXAMINATION: GENERAL: The patient is an 84-year-old male, who is currently not in any acute distress. VITAL SIGNS: Blood pressure currently in the ER is 96/58, pulse 80 per minute, respiratory rate 18 per minute, temperature 97.5 degrees Fahrenheit, saturating 94% on room air. NECK: Supple. No elevated JVD. HEENT: Eyes; extraocular muscles intact. Pupils reacting to light. Oral cavity, mucous membranes are dry. No exudates or congestion. CARDIOVASCULAR: S1, S2 heard. Regular rhythm. RESPIRATORY: Air entry 1+ bilateral. Scattered rhonchi plus no rales. ABDOMEN: Soft. Bowel sounds heard. No tenderness, rigidity, or guarding. EXTREMITIES: No peripheral edema or calf tenderness. VASCULAR SYSTEM: Peripheral pulses 1+ bilateral. No ischemic ulcerations or gangrene. CENTRAL NERVOUS SYSTEM: No gross focal deficits noted. The patient is alert, awake, and oriented well. PSYCHIATRIC: The patient's mood is euthymic. No hallucinations or delusions. LABORATORY DATA: White count of 6, H and H 8.9 and 28.9, platelet count 324, MCV is 95 with 58% neutrophils. Electrolytes are stable. BUN 21, creatinine 1.4, serum glucose 158. Liver enzymes within normal limits. BNP 416. Troponin I of 0.02. UA is normal. Stool occult blood is negative. CT brain without contrast done showed no acute intracranial process. Chest x-ray done showed cardiomegaly and small left pleural effusion. CT lumbar spine without contrast done showed no acute compression fracture. Multilevel high-grade degenerative disk disease and facet osteoarthrosis. High-grade central canal spinal stenosis at several levels, worse at L3-L4 and L2-L3. Several extruded disk herniations with migration. CLINICAL IMPRESSION AND PLAN: The patient will be placed under observation on telemetry for an episode of hypotension at home. The patient is currently asymptomatic. His initial pressures were 64/48 at home. We will continue aspirin, amiodarone, allopurinol, Coreg, Neurontin, Lantus, levothyroxine, magnesium oxide, Dulera inhaler, Zoloft, Ultram, albuterol inhaler as before. His diuretic will be held for now. He is otherwise hemodynamically stable except for systolic blood pressures in the 90s. His systolic blood pressure likely is around 90 to 100 with history of CHF and systolic and diastolic dysfunction. Last echo showed EF of 45% to 50%. He has had prolonged hospital stay during his last hospitalization here. The plan will be to discharge him early in the morning, so he can follow up with Dr. Decker and keep up the appointment. He had half a liter of bolus saline in ER on arrival and will not give any additional fluids in view of h/o chf. Job ID: [id number] [facility]
[2020-02-29 15:35] VITALS: BMI 29.1
[2020-02-29 15:47] LABS: Troponin I 0.032 ng/mL (< 0.028)
[2020-02-29] MEDS: Mometasone 100 MCG/Formoterol 5 MCG 120 PUFF INHALER INH SCH (18:29)
[2020-02-29] MEDS ORDERED: ALPRAZolam 0.25 MG TAB PO SCH (21:00)
[2020-02-29] MEDS: Gabapentin 300 MG CAP PO SCH (21:33)
[2020-02-29] MEDS: Famotidine 20 MG TAB PO SCH (21:33)
[2020-02-29] MEDS: Magnesium Oxide 400 MG TAB PO SCH (21:33)
[2020-02-29] MEDS: Allopurinol 100 MG TAB PO SCH (21:34)
[2020-02-29] MEDS: Insulin Glargine 23 UNITS in Pre-Filled Syringe SC SCH (22:01)
[2020-02-29] MEDS: Carvedilol 6.25 MG TAB PO SCH (22:01)
[2020-03-01] MEDS: Ventolin HFA Inhaler 60 PUFF INHALER INH PRN (03:27)
[2020-03-01 05:56] LABS: #Eosinphils 0.1 thou/uL (0.0-0.7); #Lymphocytes 1.6 thou/uL (1.20-3.40); #Monocytes 0.9 thou/uL (0.11-0.59); %Basophils 0.5 % (0.0-1.0); %Eosinophils 1.8 % (0.0-10.0); %Lymphocytes 20.8 % (21.0-51.0); %Monocytes 11.7 % (0.0-10.0); %Neutrophils 65.1 % (42.0-75.0); Mean Corpuscular HGB CONC 30.9 g/dL (32.0-36.0); Mean Corpuscular Hemoglobin 29.2 pg (27.0-31.0); Mean Corpuscular Volume 94.4 fL (78.0-98.0); Mean Platelet Volume 7.5 fL (7.4-10.4); Platelet Count 348 thou/uL (130-400); RBC Distribution Width 17.5 % (11.5-14.5); Red Blood Cell (RBC) Count 3.09 mill/uL (4.70-6.10); White Blood Cell (WBC) Count 7.7 thou/uL (4.8-10.8)
[2020-03-01 06:26] LABS: Anion Gap 14 mmol/L (10-20); BUN (Urea Nitrogen) 22 mg/dL (8.4-25.7); Calc. Creatinine Clearance 45 mL/min (70-130); Carbon Dioxide 26 mmol/L (23-31); Chloride 101 mmol/L (98-107); Estimated GFR-MDRD 46; Glucose 139 mg/dL (83-110); Potassium 4.4 mmol/L (3.5-5.1); Sodium 137 mmol/L (136-145)
[2020-03-01] MEDS: Levothyroxine Sodium 25 MCG TAB PO SCH (06:32)
[2020-03-01] MEDS: HumaLOG 300 UNITS/3 ML VIAL SC PRN (07:46)
[2020-03-01] MEDS: Mometasone 100 MCG/Formoterol 5 MCG 120 PUFF INHALER INH SCH ×2 (07:50→18:48)
[2020-03-01] MEDS ORDERED: Furosemide 20 MG/2 ML VIAL SLOW IVP SCH (08:15)
[2020-03-01] MEDS: Acetaminophen 325 MG TAB PO PRN (08:54)
[2020-03-01] MEDS: Gabapentin 300 MG CAP PO SCH ×2 (08:57→20:52)
[2020-03-01] MEDS: Aspirin Chewable 81 MG TAB PO SCH (08:57)
[2020-03-01] MEDS: Magnesium Oxide 400 MG TAB PO SCH ×2 (08:57→20:52)
[2020-03-01] MEDS: Allopurinol 100 MG TAB PO SCH ×2 (08:58→20:52)
[2020-03-01] MEDS: Carvedilol 6.25 MG TAB PO SCH ×2 (08:58→20:54)
[2020-03-01] MEDS: Amiodarone 200 MG TAB PO SCH (08:58)
[2020-03-01] MEDS: Famotidine 20 MG TAB PO SCH (08:58)
--- NOTE | 2020-03-01 11:17 | PDOC.HOSPP ---
- Subjective Encounter Date: 03/01/20 Encounter Time: 10:00 Subjective: awake and responds well to verbal questions has sob, ate his breakfast is moving all extremities, has limitations in left UE and quads in both LE which is chronic - Objective Vital Signs & Weight: Vital Signs (12 hours) Temp Pulse Resp BP Pulse Ox 03/01/20 07:15 100.9 F H 85 20 103/62 95 03/01/20 04:00 98.8 F 86 18 114/65 98 03/01/20 03:27 88 27 H 98 03/01/20 00:18 98 Weight Weight 180 lb 8 oz I&O: 02/29/20 03/01/20 03/02/20 06:59 06:59 06:59 Intake Total 480 Output Total 900 Balance -420 Result Diagrams: 03/01/20 04:47 03/01/20 04:47 Additional Labs: Accuchecks 03/01/20 03/01/20 02/29/20 10:45 05:58 19:37 POC Glucose 145 H 177 H 196 H 02/29/20 17:08 POC Glucose 145 H Hospitalist ROS - Medication Medications: Active Medications Generic Name Dose Route Start Last Admin Trade Name Freq PRN Reason Stop Dose Admin Acetaminophen 650 mg 02/29/20 12:22 03/01/20 08:54 Tylenol PO 650 mg Q4H PRN Administration Headache/Fever/Mild Pain (1-3) Albuterol Sulfate 2 puff 02/29/20 12:22 03/01/20 03:27 Ventolin Hfa Inhaler INH 2 puff Q6H PRN Administration SOB &/or Wheezing Allopurinol 100 mg 02/29/20 21:00 03/01/20 08:58 Zyloprim PO 100 mg BID FUNMI Administration Alprazolam 0.25 mg 02/29/20 21:00 02/29/20 21:34 Xanax PO 0.25 mg HS FUNMI Administration Amiodarone HCl 200 mg 03/01/20 09:00 03/01/20 08:58 Cordarone PO 200 mg DAILY FUNMI Administration Aspirin 81 mg 03/01/20 09:00 03/01/20 08:57 Aspirin Chewable PO 81 mg DAILY FUNMI Administration Carvedilol 6.25 mg 02/29/20 21:00 03/01/20 08:58 Coreg PO 6.25 mg BID FUNMI Administration Gabapentin 300 mg 02/29/20 21:00 03/01/20 08:57 Neurontin PO 300 mg BID FUNMI Administration Insulin Glargine 23 units/ 0.23 mls @ 0 mls/hr 02/29/20 21:00 02/29/20 22:01 Miscellaneous Medication SC 0.23 mls HS FUNMI Administration Insulin Human Lispro 0 units 02/29/20 12:22 03/01/20 07:46 Humalog SC 2 unit .MODERATE SLIDING SC PRN Administration Moderate Correctional Scale Levothyroxine Sodium 25 mcg 03/01/20 06:00 03/01/20 06:32 Synthroid PO 25 mcg 0600 FUNMI Administration Magnesium Oxide 800 mg 02/29/20 21:00 03/01/20 08:57 Magnesium Oxide PO 800 mg BID FUNMI Administration Mometasone Furoate/Formoterol Fumar 2 puff 02/29/20 18:30 03/01/20 07:50 Dulera 100 Mcg/5 Mcg Inhaler INH 2 puff BID-RT FUNMI Administration Pantoprazole Sodium 40 mg 03/01/20 09:00 03/01/20 08:58 Protonix PO 40 mg DAILY FUNMI Administration Sertraline HCl 25 mg 03/01/20 09:00 03/01/20 08:58 Zoloft PO 25 mg DAILY FUNMI Administration - Exam General Appearance: awake alert Eye: PERRL, anicteric sclera ENT: no oropharyngeal lesions, moist mucosa Neck: supple, JVD Heart: RRR, no murmur Respiratory: no wheezes, rales Gastrointestinal: soft, non-tender, non-distended, normal bowel sounds Extremities: no cyanosis, no edema Neurological: cranial nerve grossly intact, no focal deficits Hosp A/P (1) Hypotension Status: Resolved (2) Anemia, normocytic normochromic Code(s): D64.9 - ANEMIA, UNSPECIFIED Status: Chronic (3) Anxiety and depression Code(s): F41.9 - ANXIETY DISORDER, UNSPECIFIED; F32.9 - MAJOR DEPRESSIVE DISORDER, SINGLE EPISODE, UNSPECIFIED Status: Chronic (4) CAD (coronary artery disease) Code(s): I25.10 - ATHSCL HEART DISEASE OF FALSE PASS CORONARY ARTERY W/O ANG PCTRS Status: Chronic Qualifiers: Coronary Disease-Associated Artery/Lesion type: bypass graft [place] vs. transplanted heart: [place] heart Associated angina: without angina Qualified Code(s): I25.810 - Atherosclerosis of coronary artery bypass graft(s) without angina pectoris (5) COPD (chronic obstructive pulmonary disease) Status: Chronic Qualifiers: COPD type: chronic bronchitis (6) Chronic atrial fibrillation Code(s): I48.2 - CHRONIC ATRIAL FIBRILLATION * DO NOT USE * Status: Chronic (7) Chronic stage c diastolic heart failure Code(s): I50.32 - CHRONIC DIASTOLIC (CONGESTIVE) HEART FAILURE Status: Chronic (8) Gout Code(s): M10.9 - GOUT, UNSPECIFIED Status: Chronic Qualifiers: Gout site: multiple sites Encounter type: subsequent encounter Presence of tophus: without tophus (9) HTN (hypertension) Code(s): I10 - ESSENTIAL (PRIMARY) HYPERTENSION Status: Chronic Qualifiers: (10) Moderate aortic regurgitation Code(s): I35.1 - NONRHEUMATIC AORTIC (VALVE) INSUFFICIENCY Status: Chronic (11) Physical deconditioning Code(s): R53.81 - OTHER MALAISE Status: Acute - Plan one dose lasix now, repeat cxr in view of fever I have given full updates to daughter over phone. PT has evaluated him and recommend rehab or skilled has multiple med issues and spine plus shoulder arthritis in addition to gout and current deconditioning has freq falls at home especially at night when he tries to get up with out assistance. continue current meds needs diuretics for his chf
--- NOTE | 2020-03-01 12:11 | RAD ---
RADIOGRAPH CHEST 1 VIEW: DATE: 03/01/2020 HISTORY: 84-year-old male with dyspnea COMPARISON: 02/29/2020 FINDINGS: There is cardiomegaly. There is no evidence of airspace density, pulmonary edema, or pneumothorax. Th e lateral costophrenic angles are not effaced. Mildly elevated left hemidiaphragm. Sternotomy wires. Left subclavian ICD. No major interval change. IMPRESSION: 1) No acute pulmonary findings. 2) cardiomegaly without pulmonary edema.
[2020-03-01] MEDS: Insulin Glargine 23 UNITS in Pre-Filled Syringe SC SCH (20:55)
--- NOTE | 2020-03-02 00:46 | CON ---
DATE OF CONSULTATION: 03/01/2020 REASON FOR CONSULTATION: Management of a cardiac condition in hypotension. HISTORY OF PRESENT ILLNESS: Mr. Donny Rogers, 84-year-old gentleman with known history of recovering heart failure with reduced ejection fraction and recent admission for pneumonia-sepsis, was readmitted for hypotensive episode. He was admitted on January 25 with a combination of fever, cough, diarrhea, and hypotension. He was found to be in shock. Prior to admission, his weight dropped from 185 pounds down to 180 pounds. He also had acidosis with pH of 7.26 and elevated lactic acid. He required a combination of fluid resuscitation, norepinephrine, and dobutamine to stabilize. Due to the high pCO2 and poor ventilation, he was also intubated. The chest x-ray is suggestive of multifocal infiltrate. He was treated with broad-spectrum antibiotics. Eventually, it was pared down. The COVID-19 was tested negative. However, he did have lymphopenia too. The antibiotics were reduced to levofloxacin and then levofloxacin was stopped. He went back in shock again with cessation of levofloxacin and then did require restart of norepinephrine and dobutamine. After that, levofloxacin was restarted. He was also treated for COPD exacerbation. Eventually, he recovered blood pressure. Norepinephrine was able to be weaned off, and then after that, dobutamine was able to be weaned off. Also, there was no exact source of infection found. But, then he did respond to levofloxacin. Minimal amount of heart failure medication was restarted. This minimal amount is due to his infection and the vasodilatory induced low blood pressure state. So, he was only discharged home on carvedilol 6.25 mg twice a day, spironolactone 25 mg daily. He was supposed to take torsemide 10 mg every other day. Apparently, torsemide was not continued. He was doing quite well at home. He was able to eat 3 meals a day, had increased appetite. He also had increased strength and stamina. He was able to work with physical therapy twice a week. He got to the point where he was able to ambulate with a walker. On February 25, 2019, he had a good telephone visit with nurse practitioner of heart failure clinic. At that time, he was reported functioning well. His weight was stable at 181 pounds, it is a little bit below his baseline. His creatinine on that day was 1.41. His BNP was one of lower number at 260. His daughter, Bryanna, reported that Mr. Rogers was eating quite a bit. They were concerned that he had had a 3-pound weight gain. Thus, the torsemide 10 mg daily was started. It is not known that he was not taking torsemide every other day. Mr. Rogers also had periods of sudden weakness in the bilateral lower extremities. This happened while systolic blood pressure was between 114 to 120s. He would take a few steps, and all of a sudden, his both legs become very weak. Sometimes, his leg is so weak, he cannot seem to get up. These episodes are occurring randomly without association to drop in blood pressure. Overall, he was still doing well, was able to ambulate with a walker and eating well until Saturday, February 26, year 2019. He said as confirmed by his [id number] girlfriend or , Radha, that he felt really cold on Saturday night. It was almost like chills. She was not able to keep him warm enough. She tried to turn on that heating, but then he was still cold. Then on Saturday, he became confused that he was having episodes of not knowing where he was, thinking that he was at different places and doing different things. At that time, his blood pressure was still acceptable, it was about 114 to 120/70s. However, his systolic blood pressure started to drop on Saturday evening to the 90s. He woke up on Saturday morning feeling really weak and ill. Radha observed him as being pale and not quite himself. She measured his blood pressure. At first, it was 62/43. She said that she measured 4 times. Eventually, it was high at 72/ 50. After breakfast, his systolic blood pressure was 75 and diastolic blood pressure was 50. He was feeling weak and ill. They called home health. Home health was not able to come quick enough. The home health advised the daughter Zeina to call EMS for transport to [place] for evaluation. The patient does not remember who called and for what. He seemed to think that he called his primary care doctor, Dr. Bang. He also fell on Saturday night trying to go to the bathroom. It was reported that he went to the bathroom. He was not supposed to go to the bathroom by himself. Usually, he has a plastic bottle that he urinates at night in bed. However, due to confusion, he decided to go to the bathroom. He fell and hit his head. A CT scan was done. It did not show intracranial hemorrhage. Upon questioning, this was not the first time he fell in the last 3 weeks. He has fallen at least twice, but there were 2 prior episodes associated with him on a walker that his legs became too weak. I questioned Radha about his blood pressure during those times. She said his blood pressure during those times with systolic pressure about 123/73. The patient did report one bout of black stool that happened about a week ago. Stool occult blood was examined on February 28 on admission. It was negative for blood. Blood culture x2 was also done on February 28, and now there are negative blood cultures. Apparently, Lasix 20 mg IV was given on morning of March 01 and that was reported to cause hypotension. The blood pressure after administration of Lasix went down to as low as 74/53 and also 76/48. After a period of hypotension, his blood pressure came back up. Of note, there were no consistent reports of heart failure symptoms at home. He did not have palpitations, he slept flat, he did not have progressive increases in edema, and he did not have true PND. His weight being only 181 pounds, which is lower than his baseline weight of 185 lb and general goal of good blood pressure between 100 to 120 until Saturday morning. Thus, heart failure excerbation is unlikely. PAST MEDICAL HISTORY: 1. COPD. 2. Coronary artery disease, post bypass. 3. Heart failure with reduced ejection fraction that was recovering EF with increase to 50% as of June 2019. However, the EF went down to 40% with pneumonia- sepsis during the last hospitalization in late January 2020. 4. Rheumatoid arthritis. PAST SURGICAL HISTORY: Includes: 1. Appendectomy. 2. Coronary artery bypass. 3. Cholecystectomy. 4. He has CASHIER GREETER-D implanted. FAMILY HISTORY: Being age 84, it is currently noncontributory. SOCIAL HISTORY: 1. He is a former smoker, quit in 1985. 2. He denies frequent alcohol use. However, he does drink socially during events, maybe about once per month. 3. He denies illicit drug use. 4. He lives with a lady, named Radha Steele. She is not his , but is a long-term girlfriend. 5. His daughter comes by and checks on him several times a week and is a good historian who will provide good information. 6. 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 ALLERGIES AND SENSITIVITY: Iodine causes edema and hives. Penicillin causes edema and hives. MEDICATIONS: His home cardiac medications: 1. Carvedilol 6.25 mg b.i.d. 2. Eliquis 2.5 mg b.i.d. 3. Aspirin 81 mg daily. 4. Amiodarone 200 mg daily. 5. Spironolactone 25 mg daily. 6. Potassium supplement 20 mEq daily. 7. Also magnesium 800 mg b.i.d. 8. He also has COPD medication, Dulera 2 puffs b.i.d. 9. He also needs Synthroid at least 25 mcg daily. REVIEW OF SYSTEMS: GENERAL: Generally well until feeling weak on Saturday. There is no fever, chills, or productive cough. HEENT: There is no change in hearing, vision, or swallowing. PULMONARY: He is not complaining short of breath. However, his living says that you can see that he is visibly short of breath at different times. This is especially with exertion. CARDIAC: Please see HPI. GI: There is no nausea, vomiting, or diarrhea except for 1 bout of dark stool. Please see HPI. : He said he sometimes has slow go in terms of urination. There is some urination discomfort. MUSCULOSKELETAL: He complains of left upper shoulder pain. He is tender to palpation. INTEGUMENT: He does have a sore spot at lower back - decubitus ulcer. NEUROLOGIC: There are no new focal deficits or weaknesses. LABORATORY DATA: His laboratory values from this morning are sodium 137, potassium 4.4, chloride 101, bicarb 26, BUN at 22, creatinine 1.45. PHYSICAL EXAMINATION: TELEMETRY: Telemetry was reviewed. There were no concerning arrhythmias. VITAL SIGNS: Heart rate paced at 80, blood pressure 88/62, oxygen saturation 90 % on room air. It dipped down to 88%. Oxygen was placed on the patient and oxygen saturation increased to 98%. The heart rate still paced at 80 and his blood pressure increased to 93/60. GENERAL: He is alert and conversational, resting comfortably, reclining in bed without any distress. He is able to speak in medium length sentences. HEENT: Shows EOMI. There is no scleral icterus. Oropharynx is benign with moist mucosa. NECK: His JVP is elevated about 9 cm with positive hepatojugular reflux. PULMONARY: There is good air movement, bilateral. However, there is some wheeze at the right upper lung akers. There are crackles at the right base. CARDIAC: He has regular rate and rhythm with 2/6 diastolic murmur at the right sternal border and also at left sternal border. He also has 2/6 holosystolic murmur at the apex with radiation to the left axilla. LEFT SHOULDER: sore spot at left upper shoulder near joint, it has tender point tenderness ABDOMEN: Soft, nontender, and is a bit distended. EXTREMITIES: Lower extremities are warm and well perfused. Positive DPs. There are no edema. PROCEDURE: His CASHIER GREETER-D device was interrogated. It is [employer] S CASHIER GREETER-D [id number] with serial number of [id number]. It is set at lower rate limits of 80 beats per minute with Bi-V pacing, is majority A-paced, V-paced and the effects he is achieving by V-pacing at 95.1% of the time and 94.2% of time, it is A-paced and V-paced. There were no incidences of atrial fibrillation. There were also no incidences of ventricular tachycardia. Since discharge, his thoracic impedance has been increasing. This suggests that he is drying up and not gaining fluid weight. However, his thoracic impedance even though is increasing, he is drying up, but is not his baseline. So, he is to still dry some more. However, if he does have pulmonary infection, that could not a process that keeps his thoracic impedance a bit on the low side. Regardless, his thoracic impedance is increasing, this shows that he is having decreasing fluid in the chest. ASSESSMENT: This 84-year-old gentleman has unclear cause of hypotension. The quick onset of starting with feeling chills on Saturday night and then being confused on Saturday followed by drop in blood pressure suggest an infectious process. Blood loss is not likely at this point as his hemoglobin has been stable and is negative for Hemoccult. It is not likely due to worsening heart failure. He did not show heart failure symptoms. On exam, he is nearly euvolemic. Thoracic impedance is increasing further to show that he is not gaining volume. A small dose of Lasix causing him to drop blood pressure significantly down to the 70s suggests that he is intravascularly volume depleted. This further supports an infectious or inflammatory process. Endocrine may also play a role. He is hypothyroid. Insufficient thyroid supplement can also cause this. In terms of infectious disease, he may have a urinary tract infection. His left shoulder pain also needs to be investigated that could be another spot of source of infection. CT scan from February 29, 2020, suggests high-grade spinal stenosis at L2 through L4 levels. So , this could have caused his leg weakness. Please see the following for recommendations. RECOMMENDATIONS: 1. Continue with the current cardiac regimen of carvedilol 6.25 mg b.i.d. and spironolactone at 25 mg daily. 2. He probably cannot tolerate any loop diuretics. He is very volume dependent now. Loop diuretics should be avoided until the source of hypotension has been found. 3. Need to investigate potential infectious cause of the hypotension. 4. Please do urinalysis and urine culture. 5. Please check procalcitonin level. 6. Please do a noncontrast CT of the chest because on the chest x-ray, there are some still multifocal nodular spots that we need to investigate further what those are. He has been immunosuppressed for rheumatoid arthritis, so atypical infection is very possible. 7. Please also check for TSH, iron, TIBC, ferritin, CRP, and also reticulocyte count. 8. He seemed to be quite oxygen sensitive and please do oxygen study to qualify him for home oxygen. This may help him. 9. He should not be discharged until the cause of hypotension is identified and reversed. Finally, please keep potassium at 4 or higher and magnesium at 2 or higher. It has been a pleasure of taking care of Mr. Donny Rogers. If you have any questions, please give me a call. Job ID: [id number] [facility]
[2020-03-02 04:31] LABS: #Eosinphils 0.1 thou/uL (0.0-0.7); #Lymphocytes 1.7 thou/uL (1.20-3.40); #Monocytes 0.8 thou/uL (0.11-0.59); #Neutrophils 3.7 thou/uL (1.40-6.50); %Basophils 0.1 % (0.0-1.0); %Eosinophils 1.8 % (0.0-10.0); %Monocytes 12.8 % (0.0-10.0); %Neutrophils 58.2 % (42.0-75.0); Hemoglobin 8.6 g/dL (14.0-18.0); Mean Corpuscular HGB CONC 31.3 g/dL (32.0-36.0); Mean Corpuscular Hemoglobin 29.6 pg (27.0-31.0); Mean Corpuscular Volume 94.8 fL (78.0-98.0); Platelet Count 304 thou/uL (130-400); RBC Distribution Width 17.5 % (11.5-14.5); Red Blood Cell (RBC) Count 2.91 mill/uL (4.70-6.10); White Blood Cell (WBC) Count 6.3 thou/uL (4.8-10.8)
[2020-03-02 04:33] LABS: Reticulocyte Count 3.7 % (0.5-1.5)
[2020-03-02 04:55] LABS: ALT (SGPT) 8 U/L (8-55); AST (SGOT) 9 U/L (5-34); Albumin 3.2 g/dL (3.4-4.8); Alkaline Phosphatase 69 U/L (40-110); Anion Gap 14 mmol/L (10-20); BUN (Urea Nitrogen) 29 mg/dL (8.4-25.7); Bilirubin, Total 0.7 mg/dL (0.2-1.2); CRP (Inflammatory) 21.14 mg/dL (= or < 0.5); Calc. Creatinine Clearance 41 mL/min (70-130); Carbon Dioxide 28 mmol/L (23-31); Chloride 102 mmol/L (98-107); Estimated GFR-MDRD 41; Glucose 87 mg/dL (83-110); Iron 14 ug/dL (65-175); Iron Binding Capacity, Total 183 mcg/dL (261-462); Magnesium 1.9 mg/dL (1.6-2.6); Potassium 4.5 mmol/L (3.5-5.1); Protein, Total 6.2 g/dL (5.8-8.1); Sodium 139 mmol/L (136-145)
[2020-03-02 05:11] LABS: Ferritin 659.54 ng/mL (22-322); Thyroid Stimulating Hormone 9.3249 uIU/mL (0.35-4.94)
[2020-03-02] MEDS: Levothyroxine Sodium 25 MCG TAB PO SCH (05:40)
[2020-03-02 06:04] LABS: Bilirubin Negative (Negative); Blood, Urine Negative (Negative); Clarity Clear (Clear); Glucose, Urine (Dipstick) Normal (Negative); Leukocyte Negative Leu/uL (Negative); Nitrite Negative (Negative); Protein, Urine (Dipstick) 10 mg/dL (Neg-Trace); Urobilinogen Normal mg/dL (Less than 2)
[2020-03-02] MEDS: Mometasone 100 MCG/Formoterol 5 MCG 120 PUFF INHALER INH SCH ×2 (07:07→18:24)
[2020-03-02 08:24] LABS: Free T4 (Free Thyroxine) 0.75 ng/dL (0.70-1.48)
[2020-03-02] MEDS ORDERED: Cosyntropin 250 MCG VIAL SLOW IVP SCH (08:45)
[2020-03-02] MEDS ORDERED: Famotidine 20 MG TAB PO SCH (09:00)
[2020-03-02] MEDS: Amiodarone 200 MG TAB PO SCH (09:05)
[2020-03-02] MEDS: Gabapentin 300 MG CAP PO SCH ×2 (09:05→21:01)
[2020-03-02] MEDS: Aspirin Chewable 81 MG TAB PO SCH (09:05)
[2020-03-02] MEDS: Magnesium Oxide 400 MG TAB PO SCH ×2 (09:05→21:01)
[2020-03-02] MEDS: Allopurinol 100 MG TAB PO SCH ×2 (09:06→21:02)
[2020-03-02] MEDS: Carvedilol 6.25 MG TAB PO SCH ×2 (09:06→21:01)
[2020-03-02] MEDS: Acetaminophen 325 MG TAB PO PRN (09:07)
--- NOTE | 2020-03-02 09:15 | CT ---
CT CHEST WITHOUT CONTRAST: HISTORY: Atypical pneumonia. COMPARISON: CT chest 02/02/2020. FINDINGS: Small left layering pleural effusion. No significant right pleural effusion. Mild bronchiectasis in both lower lobes. No confluent airspace consolidation or pneumothorax. Chronic elevation in the le ft hemidiaphragm. There are small peripheral subpleural 2-3 mm nodules. No suspicious pulmonary nodule. Heart size is enlarged. No significant pericardial fluid. There is biliary gas in the left intrahep atic biliary system and common bile duct. No mediastinal adenopathy. Nonobstructive 3-4 mm left interpolar renal calculus. No thoracic spine compression deformity. No acute osseous abnormality. The ribs are intact. IMPRESSION: 1. No pulmonary edema. 2. Small left effusion improved from the 02/02/2020 exam. 3. No evidence for pneumonia. POS: HOME
[2020-03-02] MEDS ORDERED: Levothyroxine Sodium 25 MCG TAB PO SCH (09:21)
[2020-03-02] MEDS ORDERED: Levothyroxine Sodium 50 MCG TAB PO SCH (09:30)
--- NOTE | 2020-03-02 09:51 | CON ---
DATE OF CONSULTATION: HISTORY OF PRESENT ILLNESS: Donny Rogers is an 84-year-old gentleman. This morning, he is awake, alert, and responsive. He says he is in the hospital because of difficulty breathing and apparently hypotension, though his blood pressure is 100/58, his saturations are 93% respiratory rate 20, temperature 99, and pulse 80. He was apparently in some kind of a residential for the last several days. X-ray on admission was normal. CT was ordered by unknown physician, which I do not see any pneumonia or infiltrates. PAST MEDICAL HISTORY: Pertinent for cardiac arrhythmia, cardiomyopathy, though his EF is being at least 35%, COPD, chronic asthma, rheumatoid arthritis, hypothyroidism, peptic ulcer disease, and anxiety. PAST SURGICAL HISTORY: AICD, appendix, gallbladder, bypass. SOCIAL HISTORY: Former smoker. HOME MEDICATIONS: Include: 1. Synthroid 25. 2. Spironolactone 25. 3. Ventolin inhaler. 4. Zoloft 25. 5. Dulera 200. 6. Gabapentin 300. 7. Eliquis 2.5. 8. Coreg 6.25. 9. Dexilant. 10. Amiodarone 200 a day. REVIEW OF SYSTEMS: Negative. PHYSICAL EXAMINATION: VITAL SIGNS: As noted, temperature 99, pulse 80, respiratory rate 20, sats 93%, blood pressure 100/58. CHEST: No wheezing or crackles. CARDIAC: Normal S1 and S2. No gallops. ABDOMEN: No masses. LABORATORY DATA: Creatinine 1.6, elevated, probably from the diuretics that he is getting. White count is 6000, H and H 8 and 26, and platelet count 304. TSH is elevated at 9.32. ASSESSMENT: Hypotension, probably volume depleted, I see no evidence of congestive heart failure, no pneumonia. Chronic obstructive pulmonary disease, hypothyroidism, azotemia, prerenal. PLAN: I will increase his Synthroid to 50, otherwise continue present treatment. Consultation note, 70 minutes, 50% direct patient care. Job ID: [id number]
[2020-03-02] MEDS ORDERED: DOBUTAMINE 250 MG-D5W 250 ML 250 MG in Premix Bag 1 BAG IV PRN (10:50)
--- NOTE | 2020-03-02 11:09 | PRG ---
DATE OF SERVICE: 03/02/2020 This is from [facility]. SUBJECTIVE: Mr. Donyn Rogers has regained some blood pressure this morning. He was able to stand up a bit with Physical Therapy and then he developed a feeling very hot. Then, he had shaking chills. He felt very cold and he asked the nurse to cover him up and then, he felt nauseated and vomited. He complains of severe left shoulder pain. Also, severe left knee pain. REVIEW OF SYSTEMS: GENERAL: See HPI. HEENT: There is no change in hearing, vision, or swallowing. PULMONARY: He is not short of breath, but he requires at least 2 L O2 to keep oxygen saturation 93% or higher. CARDIAC: There is no chest pains, palpitations or syncope and there is no edema. GI: See HPI. : He said he could urinate. MUSCULOSKELETAL: Please see HPI. INTEGUMENT: He has a sore spot on his bottom. NEUROLOGIC: There is no new focal deficits or weaknesses. MEDICATIONS: His current cardiac medications include; 1. Amiodarone 200 mg daily. 2. Aspirin 81 mg daily. 3. Carvedilol 6.25 mg twice a day. 4. Magnesium oxide 800 mg twice a day. 5. Spironolactone has been dropped off. PHYSICAL EXAMINATION: TELEMETRY: Telemetry was reviewed. He has some PVCs, but he is predominantly A-paced and V-paced. There are no concerning arrhythmias. VITAL SIGNS: Heart rate paced at 80, temperature now has risen to 99 or higher, oxygen saturation 93% on 1.5 L nasal cannula, and blood pressure 100/58. A follow-up rectal temperature done by nurse Mendez measured his core temperature at 103.1F. GENERAL: He is alert and conversational, but he is shaking, looks like rigors. HEENT: Show EOMI. Oropharynx benign with moist mucosa. NECK: JVP is about 10 cm. CHEST AND SHOULDER: He has really hot left shoulder joint, it is painful to palpation. PULMONARY: There is good air movement in upper lung akers and slight wheeze. He also has bilateral crackles. CARDIAC: Regular rate and rhythm, paced. S1 and S2. There is 2/6 diastolic murmur at the right sternal border and left sternal border. There is also 2/6 holosystolic murmur at the apex with radiation to the left axilla. ABDOMEN: Soft and nontender. EXTREMITIES: Lower extremity, he has mild swelling of the left knee and feels hot. His lower extremities at his feet, there is no edema. Positive dorsalis pedis pulses bilaterally. LABORATORY VALUES: His hemoglobin had decreased about to 8.6 with hematocrit of 27.6. His reticulocyte count is only 3.7 with immature retic fraction of 0.418. His chemistry showed a sodium of 139, potassium of 4.5, BUN of 29, and creatinine of 1.6. His iron is very low at 14 and TIBC is low at 183; however, his ferritin is high at 659.5. His C-reactive protein is very high at 21 and his TSH is also high at 9.32. HOME SITUATION and POSSIBILITIES His daughter described his home situation. 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 Mr. Rogers took Humira and then Orencia for Rheumatoid Arthritis. Thus, zoonotic infection such as Q-fever is possible. Mr. Rogers also received steriod shots to his left shoulder. Thus, he may have a septic joint. ASSESSMENT AND PLAN: 84-year-old gentleman has multifactorial causes of hypotension. This includes infectious process as seen by a rising temperature, rigors, hypothyroidism as seen by a high TSH, and iron deficiency anemia as seen by low hemoglobin, low iron, and inadequate reticulocyte response. His underlying cardiac condition does not help. However, it is not a congestive heart failure process. We will need to solve all these major issues before he can be discharged. Please see the following for recommendations; RECOMMENDATIONS 1. Continue with carvedilol and spironolactone. 2. If it needs to start dobutamine 2.5 mcg/kg/minute, may titrate up to 7.5 mcg/kg/minute if he needs support. 3. Please do blood culture. The patient is in rigors. 4. Please consider consulting Orthopedics for left shoulder, his left shoulder may need to be tapped to see if there is an infectious component. 5. Increase Synthroid to at least 50 mcg daily or higher. 6. Investigate cause for iron deficiency anemia. 7. Consider to transfuse 1 unit of blood to maintain his blood pressure in this stress day. 8. We will ask geotechnicial properties technician to come and do a transthoracic echocardiogram to see if there are any vegetation on valves or vegetation on the pacemaker leads. It has been a pleasure taking care of Mr. Rogers. He is a very complicated case. I will continue to help to solve this mystery. Job ID: [id number] [facility]
[2020-03-02] MEDS: cefTRIAXone\\ROCEPHIN 2 GM in Sodium Chloride 0.9% 100 ML IVPB SCH (11:51)
--- NOTE | 2020-03-02 11:55 | PDOC.HOSPP ---
- Subjective Encounter Date: 03/02/20 Encounter Time: 11:00 Subjective: Had chills and fever this am no sob or abdominal pain not fully oriented this morning - Objective Vital Signs & Weight: Vital Signs (12 hours) Temp Pulse Resp BP Pulse Ox 03/02/20 07:25 99 F 80 20 100/58 L 95 03/02/20 07:05 84 18 96 03/02/20 03:33 98.4 F 87 18 93/50 L 97 03/02/20 00:18 20 03/02/20 00:00 98.4 F 80 18 115/52 L 94 L Weight Weight 178 lb I&O: 03/01/20 03/02/20 03/03/20 06:59 06:59 06:59 Intake Total 480 970 Output Total 900 700 Balance -420 270 Result Diagrams: 03/02/20 04:21 03/02/20 04:21 Additional Labs: Accuchecks 03/02/20 03/01/20 03/01/20 06:13 20:55 16:25 POC Glucose 83 134 H 135 H Hospitalist ROS - Medication Medications: Active Medications Generic Name Dose Route Start Last Admin Trade Name Freq PRN Reason Stop Dose Admin Acetaminophen 650 mg 02/29/20 12:22 03/02/20 09:07 Tylenol PO 650 mg Q4H PRN Administration Headache/Fever/Mild Pain (1-3) Albuterol Sulfate 2 puff 02/29/20 12:22 03/01/20 03:27 Ventolin Hfa Inhaler INH 2 puff Q6H PRN Administration SOB &/or Wheezing Albuterol/Ipratropium 3 ml 03/01/20 13:00 03/02/20 07:05 Duoneb NEB 3 ml [id number] FUNMI Administration Allopurinol 100 mg 02/29/20 21:00 03/02/20 09:06 Zyloprim PO 100 mg BID FUNMI Administration Amiodarone HCl 200 mg 03/01/20 09:00 03/02/20 09:05 Cordarone PO 200 mg DAILY FUNMI Administration Aspirin 81 mg 03/01/20 09:00 03/02/20 09:05 Aspirin Chewable PO 81 mg DAILY FUNMI Administration Carvedilol 6.25 mg 02/29/20 21:00 03/02/20 09:06 Coreg PO 6.25 mg BID FUNMI Administration Cosyntropin 250 mcg 03/02/20 08:45 03/02/20 08:56 Cortrosyn SLOW IVP 03/02/20 14:00 250 mcg NOW FUNMI Administration Gabapentin 300 mg 02/29/20 21:00 03/02/20 09:05 Neurontin PO 300 mg BID FUNMI Administration Insulin Glargine 23 units/ 0.23 mls @ 0 mls/hr 02/29/20 21:00 03/01/20 20:55 Miscellaneous Medication SC 0.23 mls HS FUNMI Administration Ceftriaxone Sodium 2 gm/ 100 mls @ 200 mls/hr 03/02/20 11:00 03/02/20 11:51 Sodium Chloride IVPB 100 mls Q24HR FUNMI Administration Insulin Human Lispro 0 units 02/29/20 12:22 03/01/20 07:46 Humalog SC 2 unit .MODERATE SLIDING SC PRN Administration Moderate Correctional Scale Levothyroxine Sodium 50 mcg 03/02/20 09:30 03/02/20 10:35 Synthroid PO 03/02/20 12:00 50 mcg NOW FUNMI Administration Magnesium Oxide 800 mg 02/29/20 21:00 03/02/20 09:05 Magnesium Oxide PO 800 mg BID FUNMI Administration Mometasone Furoate/Formoterol Fumar 2 puff 02/29/20 18:30 03/02/20 07:07 Dulera 100 Mcg/5 Mcg Inhaler INH 2 puff BID-RT FUNMI Administration Pantoprazole Sodium 40 mg 03/01/20 09:00 03/02/20 09:05 Protonix PO 40 mg DAILY FUNMI Administration Sertraline HCl 25 mg 03/01/20 09:00 03/02/20 09:05 Zoloft PO 25 mg DAILY FUNMI Administration Sodium Chloride 10 ml 03/02/20 09:00 03/02/20 08:58 Flush - Normal Saline IVF 10 ml Q12HR FUNMI Administration - Exam General Appearance: ill appearing Eye: PERRL, anicteric sclera ENT: no oropharyngeal lesions, dry oral mucosa Neck: supple, no JVD Heart: RRR, no gallops, murmur present Respiratory: no wheezes, no rales Gastrointestinal: soft, non-tender, non-distended, normal bowel sounds Extremities: no cyanosis, no edema Neurological: cranial nerve grossly intact, no focal deficits Hosp A/P (1) Hypotension Status: Acute (2) Anemia, normocytic normochromic Code(s): D64.9 - ANEMIA, UNSPECIFIED Status: Chronic (3) Anxiety and depression Code(s): F41.9 - ANXIETY DISORDER, UNSPECIFIED; F32.9 - MAJOR DEPRESSIVE DISORDER, SINGLE EPISODE, UNSPECIFIED Status: Chronic (4) CAD (coronary artery disease) Code(s): I25.10 - ATHSCL HEART DISEASE OF [place] CORONARY ARTERY W/O ANG PCTRS Status: Chronic Qualifiers: Coronary Disease-Associated Artery/Lesion type: bypass graft [place] vs. transplanted heart: [place] heart Associated angina: without angina Qualified Code(s): I25.810 - Atherosclerosis of coronary artery bypass graft(s) without angina pectoris (5) COPD (chronic obstructive pulmonary disease) Status: Chronic Qualifiers: COPD type: chronic bronchitis (6) Chronic atrial fibrillation Code(s): I48.2 - CHRONIC ATRIAL FIBRILLATION * DO NOT USE * Status: Chronic (7) Chronic stage c diastolic heart failure Code(s): I50.32 - CHRONIC DIASTOLIC (CONGESTIVE) HEART FAILURE Status: Chronic (8) Gout Code(s): M10.9 - GOUT, UNSPECIFIED Status: Chronic Qualifiers: Gout site: multiple sites Encounter type: subsequent encounter Presence of tophus: without tophus (9) HTN (hypertension) Code(s): I10 - ESSENTIAL (PRIMARY) HYPERTENSION Status: Chronic Qualifiers: (10) Moderate aortic regurgitation Code(s): I35.1 - NONRHEUMATIC AORTIC (VALVE) INSUFFICIENCY Status: Chronic (11) Physical deconditioning Code(s): R53.81 - OTHER MALAISE Status: Acute (12) Fever and chills Code(s): R50.9 - FEVER, UNSPECIFIED Status: Acute - Plan initial blood cs x2 is -ve tmax of 103 rectal per , repeat cultures were obtained, is on vanc, ceftriaxone, repeat echo. d/w Teacle, no signs of septic arthritis in left shoulder or knee, will try colchicine d/w daughter and POA extensively this morning, gave full updates, he will be DNAR. PT has evaluated him and recommend rehab/swing or skilled has multiple med issues, hardware, and spine plus shoulder arthritis in addition to gout and current deconditioning has freq falls at home especially at night when he tries to get up with out assistance. continue current meds He does not like going to snf or NH. His girlfriend is home 24/7 and can help him if he mobilizes a bit (rehab or [place] [facility] is fine if he needs it)
[2020-03-02] MEDS ORDERED: Vancomycin HCl 1.25 GM in Sodium Chloride 0.9% 250 ML 250 ML IVPB SCH ×2 (12:00→16:00)
--- NOTE | 2020-03-02 12:30 | CON ---
DATE OF CONSULTATION: 03/02/2020 REQUESTING PHYSICIAN: Dr. Michael Bourne. CONSULTING PHYSICIAN: Dr. Adi Telles. REASON FOR CONSULTATION: Left knee and left shoulder discomfort. BRIEF CLINICAL HISTORY: Donny is an 84-year-old male, who was admitted by the medicine team two days ago for hypotension. Apparently he has been hospitalized for the last couple of days with a workup of cardiogenic reasons and he is also seen by Dr. Melton, who recommended checking thyroid. Our service was consulted for his left shoulder and left knee pain, which have been chronic in nature. In fact, plain radiographs were ordered of both the left shoulder and left knee. However, at the time of the radiographic team showing up, the patient refused to have films taken and was more interested in leaving the hospital so that he had a ride home. He tells me that his left knee is hurting for many, many years and his left shoulder is hurting for many years. According to the patient, none of these symptoms onset are acute in nature. His laboratory evaluation did not demonstrate an elevated white count. He tends to have anemia of chronic disease, but his C-reactive protein was 21.14. I have not seen any documented temps over 100.9. I have seen one documented temperature of 100.9, but otherwise he has been afebrile since the admission on the . PHYSICAL EXAMINATION: VITAL SIGNS: On examination temperature 99, pulse rate 80, respiratory rate 20, O2 saturation is 93% on 1.5 nasal cannula, and blood pressure 100/58. GENERAL: He is alert, appropriate, responsive, and very brisk appearing and appropriately conversive with examiner. He does not appear obtunded. He does not appear in any acute distress or any significant pain. He is sitting up on the side of the bed with knees flexed and left arm at the side. He will not let me examine his left shoulder other than palpation. It is somewhat tender, but he will not flex or abduct the shoulder for me and tells me that he will come visit me in the future if he needs. The exam is limited due to the patient's request. He also at the time of examination refused to position himself for x-rays, not so much from pain, but he is expecting to leave the hospital very soon. IMPRESSION: An 84-year-old male with left shoulder and left knee pain with a history of gout. This is probably gouty arthritis, superimposed on a left rotator cuff arthropathy. Also for a man of his age, he probably has some arthritis in the left knee, but this is not a typical presentation for septic joint in a person, who is quite this brisk and insisting on going home on being discharged. People with septic joints typically do not do that. PLAN: We can see him back in clinic unless he deteriorates. Otherwise, at this point, further recommendation and evaluation would be with imaging in the form of x-rays, which the patient refused as well as arthrocentesis which he definitely did not want me doing today. Job ID: [id number]
[2020-03-02 12:58] LABS: % Infected Cells W/Parasite No parasites seen
--- NOTE | 2020-03-02 14:24 | EKG ---
Test Reason : Blood Pressure : / mmHG Vent. Rate : 080 BPM Atrial Rate : 080 BPM P-R Int : 000 ms QRS Dur : 190 ms QT Int : 480 ms P-R-T Axes : 077 031 091 degrees QTc Int : 553 ms AV sequential or dual chamber electronic pacemaker Confirmed by PETRA MERRITT MD ([id number]), web editor SHAWN LOZOYA ([id number]) on 03/02/2020 2:23:30 PM Referred By: Confirmed By:PETRA MERRITT MD
--- NOTE | 2020-03-02 17:05 | CON ---
DATE OF CONSULTATION: 03/02/2020 REASON FOR CONSULTATION: Concern with possible opportunistic infectious process. HISTORY OF PRESENT ILLNESS: An 84-year-old whom I had seen recently at the end of January this year when he presented with a history of ischemic cardiomyopathy, COPD, AFib, rheumatoid arthritis, previously on Humira with numerous admissions past 2 years for complications related to his cardiomyopathy. The patient has had an AICD inserted. In January, he developed fever, hypotension, and change in mental state with hallucinations. There was some cough associated with the symptoms. He was somewhat hypotensive on arrival and tachycardic with diminished O2 sats. Initial temperature was 101.4. He was quite tachypneic. The patient had abnormal lung exam with scattered inspiratory crackles right and left side and rhonchi. There is a moderate leukocytosis, normocytic anemia, a predominance of mature neutrophils, his creatinine was 1.5, lactic acid 2.4. COVID-19 PCR was not detected. The impression was respiratory failure, COPD, possible superimposed pneumonia. He did have some ground-glass opacity changes in the lung zones, and autoimmune panel was negative. Vasculitis panel was negative as well. Histoplasma antigen, CMV DNA PCR were not detected in a significant amount and his Fungitell assay was less than 31 pg/mL. The patient was discharged on 02/10. The discharge diagnosis was sepsis, septic shock with community-acquired pneumonia, hypoxic respiratory failure, ischemic cardiomyopathy, type 2 diabetes. Discharge medications included allopurinol, alprazolam, amiodarone, Eliquis, aspirin, Dexilant, Ivana, Zoloft, Klor-Con, tramadol, amiodarone, Coreg, Synthroid, Dulera, and spironolactone. Apparently, the patient was referred back to the hospital day before yesterday because of noticeable decrease in systolic blood pressure and perceptions of weakness, but no fever, chills, vomiting, diarrhea, or abdominal pain. No chest pain. The initial findings included BP 97/58, pulse 80, respirations 18, temperature 97.5, and O2 saturation 94. The exam showed clear breath sounds. He did not appear in distress. The heart showed regular rate and rhythm without murmurs. Abdomen was not tender or distended. Neuro examination nonfocal. He did have findings suggestive of chronic osteoarthrosis of various joints, particularly the left shoulder and left knee area. The reason he was brought in is because of the detected low systolic blood pressure by the healthcare worker in his home setting, so it was not so much what he presented at the emergency room, but the history of low blood pressure obtained previously. He has been seen by Dr. Kimble and Dr. Telles. Actually, the reason for orthopedic surgery consultation was the joint discomfort. They offered arthrocentesis, but apparently the patient declined it. We felt that gouty arthritis was the likely scenario. We are asked to evaluate the patient because of the concern with an infectious process. Apparently, he had also after admission temperature elevation up to 103.1 rectal temperature. I do not see that documented in the temperature record obtained by the nurse. His maximum temperature was 100.9 on 03/01. Currently, Mr. Rogers is sitting by the bedside. He has a quite a bit of difficulty in understanding my questions because of hearing impairment. His hearing aid is not working at the moment. He denies headaches. He complains of pain in the left shoulder and left knee. He denies back pain. The dyspnea has improved. No abdominal pain. He denies any difficulty with voiding. He states that his left shoulder pain is relatively new with a left knee pain is old. No bleeding. PAST MEDICAL HISTORY: 1. Ischemic cardiomyopathy. 2. COPD. 3. Rheumatoid arthritis, on Humira in the past. 4. Cardiac bypass. 5. Gastric ulcers. 6. Hypertension. 7. AICD. 8. Recent pneumonia. 9. Gout. ALLERGIES: IODINE, PENICILLIN, STATINS, AND CONTRAST MEDIA. FAMILY HISTORY: Noncontributory. MEDICATIONS: 1. P.r.n. medications. 2. Ventolin. 3. DuoNebs. 4. Zyloprim. 5. Cordarone. 6. Dulcolax. 7. Coreg. 8. Ceftriaxone. 9. Colchicine. 10. Dobutamine. 11. Insulin. 12. Magnesium. 13. Pantoprazole. 14. Zoloft. 15. Tramadol. 16. Vancomycin. PHYSICAL EXAMINATION: VITAL SIGNS: T-max 100.9 earlier yesterday and now 99.8, blood pressure 111/51, pulse 81, respirations 20, and O2 saturation 95. SKIN: Peripheral IV access. He is voiding on his own in the urinal. No lymphadenopathy. HEENT: Ocular movements conjugate. No solomon teeth remaining. Jugular vein distention noticeable. LUNGS: With a few faint inspiratory crackles at the base. No wheezing. HEART: S1 and S2. Diminished heart sounds. No obvious S3. ABDOMEN: Soft, not distended or tender. No ascites. No bladder distention. GENITOURINARY: No genital abnormalities. EXTREMITIES: The patient has decreased range of motion in the left knee and left shoulder with some swelling and some deformity noted. No obvious effusion is noticeable at this time. Pulses are 1+ in dorsalis pedis. Trace edema in legs. Plantar responses are flexor. NEUROLOGIC: He is awake, oriented. Communications may difficult because of his hearing impairment, but he seems to have preserved cognitive function otherwise. LABORATORY DATA: His latest white cell count is 6.3, hemoglobin 8.6, platelets 304, and reticulocyte count 3.7. Chemistry with sodium 139 and creatinine 1.6. The creatinine is a bit higher than his baseline. CRP 21.14. His last procalcitonin was 0.27 on 03/02. Urinalysis normal. IgG was 818 and IgM 181. The patient has had uric acid of 11 on 05/10 and now 7.1 on 12/21. There was a CT of chest done on 03/02, which showed no evidence of pulmonary edema, no pneumonia, a small left pleural effusion improved from 02/01. ASSESSMENT: 1. Ischemic cardiomyopathy. 2. Gout. 3. Chronic obstructive pulmonary disease. 4. Hypotension, transient. 5. Elevated C-reactive protein. 6. Pain in the left knee and left shoulder. 7. Concern with various possible infections. DISCUSSION: Differential diagnosis includes polyarticular gout associated with low-grade temperature elevation. Usually gouty arthritis is typically not associated with very high temperatures, but sometimes it can be. The possibility of an opportunistic infectious processes is one of the concerns. We have done a workup recently, but no other infection has been tested. We will add a Brucellosis and Coxiella burnetii testing as well. The patient himself has declined arthrocentesis, which would be the recommended way of ruling out an infectious arthropathy by testing the synovial fluid sample. We will check for Bartonella henselae as well. Job ID: [id number]
[2020-03-02] MEDS: HumaLOG 300 UNITS/3 ML VIAL SC PRN (18:19)
[2020-03-02] MEDS: DOBUTamine 500 mg/250 ml 500 MG in Premix Bag 1 BAG IVPB SCH (20:43)
[2020-03-02] MEDS ORDERED: Vancomycin HCl 1 GM in Sodium Chloride 0.9% 250 ML 250 ML IVPB SCH (21:00)
[2020-03-02] MEDS: Insulin Glargine 23 UNITS in Pre-Filled Syringe SC SCH (21:00)
[2020-03-02] MEDS: Colchicine 0.6 MG TAB PO SCH (21:01)
[2020-03-03] MEDS: Levothyroxine Sodium 50 MCG TAB PO SCH (06:12)
[2020-03-03] MEDS: Mometasone 100 MCG/Formoterol 5 MCG 120 PUFF INHALER INH SCH ×2 (07:58→18:24)
[2020-03-03 09:06] LABS: Mean Corpuscular HGB CONC 30.4 g/dL (32.0-36.0); Mean Corpuscular Hemoglobin 28.7 pg (27.0-31.0); Mean Corpuscular Volume 94.3 fL (78.0-98.0); Mean Platelet Volume 7.1 fL (7.4-10.4); Platelet Count 347 thou/uL (130-400); RBC Distribution Width 17.1 % (11.5-14.5); Red Blood Cell (RBC) Count 2.78 mill/uL (4.70-6.10); White Blood Cell (WBC) Count 6.5 thou/uL (4.8-10.8)
--- NOTE | 2020-03-03 09:14 | PRG ---
DATE OF SERVICE: 03/03/2020 SUBJECTIVE: An 84-year-old gentleman who this morning, is awake, alert, and responsive. OBJECTIVE: VITAL SIGNS: Temperature 98, saturations 90% on room air, blood pressure 101/59. CHEST: No wheezing or crackles. CARDIAC: Normal S1 and S2. No gallop. ABDOMEN: No mass. ASSESSMENT AND PLAN: 1. Cardiomyopathy. 2. Chronic obstructive pulmonary disease. 3. 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 Job ID: [id number]
[2020-03-03 09:19] LABS: Anion Gap 13 mmol/L (10-20); BUN (Urea Nitrogen) 37 mg/dL (8.4-25.7); Calc. Creatinine Clearance 37 mL/min (70-130); Carbon Dioxide 26 mmol/L (23-31); Chloride 99 mmol/L (98-107); Estimated GFR-MDRD 38; Glucose 122 mg/dL (83-110); Magnesium 2.1 mg/dL (1.6-2.6); Sodium 134 mmol/L (136-145)
[2020-03-03] MEDS: Amiodarone 200 MG TAB PO SCH (09:30)
[2020-03-03] MEDS: Aspirin Chewable 81 MG TAB PO SCH (09:30)
[2020-03-03] MEDS: Magnesium Oxide 400 MG TAB PO SCH ×2 (09:30→20:34)
[2020-03-03] MEDS: Gabapentin 300 MG CAP PO SCH ×2 (09:30→20:34)
[2020-03-03] MEDS: Colchicine 0.6 MG TAB PO SCH ×2 (09:30→20:33)
[2020-03-03] MEDS: Allopurinol 100 MG TAB PO SCH ×2 (09:30→20:34)
[2020-03-03 09:35] LABS: Band 8 % (5-11); Eosinophils 3 % (0-10); Hypochromia SLIGHT = 6-15 cells (100X) (0-5/hpf); Lymphocytes 21 % (21-51); MDiff Complete? YES; Monocytes 14 % (0-10); Neutrophil 54 % (42-75); Ovalocytes SLIGHT = 2-5 cells (100X) (0-1/hpf); Platelet Morphology Comment Appears Adequate; Polychromasia SLIGHT = 2-3 cells (100X) (0-2/hpf)
--- NOTE | 2020-03-03 10:55 | RAD ---
Exam:2 views left knee HISTORY: Pain COMPARISON: None FINDINGS: Atherosclerosis. No joint effusion. Severe degenerative change in the medial compartment. N o fracture. IMPRESSION: Severe degenerative change in the medial compartment.
--- NOTE | 2020-03-03 10:57 | RAD ---
Exam:Left shoulder 3 views HISTORY: Pain. Effusion COMPARISON: None FINDINGS: Degenerative change of the acromioclavicular joint space. Limited evaluation of the glenohu meral joint space due to patient position. Visualized left ribs and left lung do not demonstrate any acute abnormality. Atherosclerosis of the aorta is noted. No fracture or dislocation. IMPRESSION: No fracture or dislocation.
--- NOTE | 2020-03-03 11:25 | PDOC.HOSPP ---
- Subjective Encounter Date: 03/03/20 Encounter Time: 10:15 Subjective: has ambulated with PT to the door and back, is steady per therapist no cough or sob now no fever says his left knee pain is better, has chronic left shoulder pain with limitation in movement - Objective Vital Signs & Weight: Vital Signs (12 hours) Temp Pulse Pulse Resp BP BP BP 03/03/20 09:39 80 110/56 L 03/03/20 07:58 98.0 F 79 20 101/59 L 03/03/20 07:57 80 16 03/03/20 07:45 03/03/20 04:00 98.9 F 80 18 93/55 L 03/03/20 00:05 80 20 99/53 L Pulse Ox 03/03/20 09:39 03/03/20 07:58 96 03/03/20 07:57 96 03/03/20 07:45 96 03/03/20 04:00 94 L 03/03/20 00:05 Weight Weight 178 lb 4.8 oz I&O: 03/02/20 03/03/20 03/04/20 06:59 06:59 06:59 Intake Total 970 840 56.2 Output Total 700 800 Balance 270 40 56.2 Result Diagrams: 03/03/20 08:43 03/03/20 08:43 Additional Labs: Accuchecks 03/03/20 03/03/20 03/02/20 10:41 06:14 20:41 POC Glucose 175 H 155 H 225 H 03/02/20 03/02/20 16:41 11:25 POC Glucose 228 H 197 H Hospitalist ROS - Medication Medications: Active Medications Generic Name Dose Route Start Last Admin Trade Name Freq PRN Reason Stop Dose Admin Acetaminophen 650 mg 02/29/20 12:22 03/02/20 09:07 Tylenol PO 650 mg Q4H PRN Administration Headache/Fever/Mild Pain (1-3) Albuterol Sulfate 2 puff 02/29/20 12:22 03/01/20 03:27 Ventolin Hfa Inhaler INH 2 puff Q6H PRN Administration SOB &/or Wheezing Albuterol/Ipratropium 3 ml 03/01/20 13:00 03/03/20 07:57 Duoneb NEB 3 ml [id number] FUNMI Administration Allopurinol 100 mg 02/29/20 21:00 03/03/20 09:30 Zyloprim PO 100 mg BID FUNMI Administration Amiodarone HCl 200 mg 03/01/20 09:00 03/03/20 09:30 Cordarone PO 200 mg DAILY FUNMI Administration Aspirin 81 mg 03/01/20 09:00 03/03/20 09:30 Aspirin Chewable PO 81 mg DAILY FUNMI Administration Colchicine 0.6 mg 03/02/20 21:00 03/03/20 09:30 Colchicine PO 0.6 mg BID FUNMI Administration Gabapentin 300 mg 02/29/20 21:00 03/03/20 09:30 Neurontin PO 300 mg BID FUNMI Administration Insulin Glargine 23 units/ 0.23 mls @ 0 mls/hr 02/29/20 21:00 03/02/20 21:00 Miscellaneous Medication SC 0.23 mls HS FUNMI Administration Ceftriaxone Sodium 2 gm/ 100 mls @ 200 mls/hr 03/02/20 11:00 03/02/20 11:51 Sodium Chloride IVPB 100 mls Q24HR FUNMI Administration Dobutamine HCl/Dextrose 500 mg 250 mls @ 6.05 mls/hr 03/02/20 11:00 03/02/20 20:43 / Device IVPB 250 mls INF FUNMI Administration 2.5 MCG/KG/MIN Insulin Human Lispro 0 units 02/29/20 12:22 03/02/20 18:19 Humalog SC 4 unit .MODERATE SLIDING SC PRN Administration Moderate Correctional Scale Levothyroxine Sodium 50 mcg 03/03/20 06:00 03/03/20 06:12 Synthroid PO 50 mcg 0600 FUNMI Administration Magnesium Oxide 800 mg 02/29/20 21:00 03/03/20 09:30 Magnesium Oxide PO 800 mg BID FUNMI Administration Mometasone Furoate/Formoterol Fumar 2 puff 02/29/20 18:30 03/03/20 07:58 Dulera 100 Mcg/5 Mcg Inhaler INH 2 puff BID-RT FUNMI Administration Pantoprazole Sodium 40 mg 03/01/20 09:00 03/03/20 09:30 Protonix PO 40 mg DAILY FUNMI Administration Sertraline HCl 25 mg 03/01/20 09:00 03/03/20 09:30 Zoloft PO 25 mg DAILY FUNMI Administration Sodium Chloride 10 ml 03/02/20 09:00 03/03/20 09:31 Flush - Normal Saline IVF 10 ml Q12HR FUNMI Administration - Exam General Appearance: awake alert Eye: PERRL, anicteric sclera ENT: no oropharyngeal lesions, moist mucosa Neck: supple, no JVD Heart: RRR, no gallops Respiratory: no wheezes, no rales Gastrointestinal: soft, non-tender, non-distended, normal bowel sounds Extremities: no cyanosis, no edema Neurological: cranial nerve grossly intact, no focal deficits Psychiatric: A&O x 3 Hosp A/P (1) Hypotension Status: Acute (2) Anemia, normocytic normochromic Code(s): D64.9 - ANEMIA, UNSPECIFIED Status: Chronic (3) Anxiety and depression Code(s): F41.9 - ANXIETY DISORDER, UNSPECIFIED; F32.9 - MAJOR DEPRESSIVE DISORDER, SINGLE EPISODE, UNSPECIFIED Status: Chronic (4) CAD (coronary artery disease) Code(s): I25.10 - ATHSCL HEART DISEASE OF [place] CORONARY ARTERY W/O ANG PCTRS Status: Chronic Qualifiers: Coronary Disease-Associated Artery/Lesion type: bypass graft [place] vs. transplanted heart: [place] heart Associated angina: without angina Qualified Code(s): I25.810 - Atherosclerosis of coronary artery bypass graft(s) without angina pectoris (5) COPD (chronic obstructive pulmonary disease) Status: Chronic Qualifiers: COPD type: chronic bronchitis (6) Chronic atrial fibrillation Code(s): I48.2 - CHRONIC ATRIAL FIBRILLATION * DO NOT USE * Status: Chronic (7) Chronic stage c diastolic heart failure Code(s): I50.32 - CHRONIC DIASTOLIC (CONGESTIVE) HEART FAILURE Status: Chronic (8) Gout Code(s): M10.9 - GOUT, UNSPECIFIED Status: Chronic Qualifiers: Gout site: multiple sites Encounter type: subsequent encounter Presence of tophus: without tophus (9) HTN (hypertension) Code(s): I10 - ESSENTIAL (PRIMARY) HYPERTENSION Status: Chronic Qualifiers: (10) Moderate aortic regurgitation Code(s): I35.1 - NONRHEUMATIC AORTIC (VALVE) INSUFFICIENCY Status: Chronic (11) Physical deconditioning Code(s): R53.81 - OTHER MALAISE Status: Acute (12) Fever and chills Code(s): R50.9 - FEVER, UNSPECIFIED Status: Resolved (13) Gout attack Code(s): M10.9 - GOUT, UNSPECIFIED Status: Acute Qualifiers: Gout site: multiple sites Gout etiology: idiopathic Qualified Code(s): M10.09 - Idiopathic gout, multiple sites - Plan blood cs x4 is -ve is on ceftriaxone, repeat echo. d/w Teacle, no signs of septic arthritis in left shoulder or knee, will cut back on colchicine in am if creatinine continues to raise. is on low dose dobutamine d/w daughter and POA extensively, gave full updates, he will be DNAR (03/02/2020) . PT has evaluated him and recommend rehab/swing or skilled has multiple med issues, hardware, and spine plus shoulder arthritis in addition to gout and current deconditioning has freq falls at home especially at night when he tries to get up with out assistance. continue current meds He does not like going to snf or NH. His girlfriend is home 24/7 and can help him if he mobilizes a bit (rehab or [place] [facility] is fine if he needs it) Plain xrays of left knee and left shoulder reviewed infectious w/u so far is -ve, fever and chills have abated. dc plan when he is off dobutamine, he likely will run his sbp around 100-110. Appreciate help from Starr Toussaint and Kristopher.
[2020-03-03] MEDS: cefTRIAXone\\ROCEPHIN 2 GM in Sodium Chloride 0.9% 100 ML IVPB SCH (11:55)
[2020-03-03] MEDS: HumaLOG 300 UNITS/3 ML VIAL SC PRN (12:13)
--- NOTE | 2020-03-03 12:55 | PRG ---
DATE OF SERVICE: 03/03/2020 This is from [facility]. SUBJECTIVE: Mr. Donny Rogers had a very difficult day. Sometime after 8:00 in the morning, he acted very confused. He was found to be having rigors. He felt very hot. Nurse, Vanessa, did measure his rectal temperature, it was 103.1 degrees. He also had a very hot left shoulder and there was also warm left knee. He was given Tylenol throughout the day to bring down the fever. Then, blood culture was also started. Afterwards, antibiotics were also started. Orthopedics was consulted. Unfortunately, the patient was confused. The patient sent the orthopedic surgeon away and refused to left shoulder TAP. He remained confused to almost a day, but with the antibiotics, he felt better and cleared up overnight. Overnight, he had a drop in his systolic blood pressure. He received 250 mL of normal saline, but that did not bring up the systolic blood pressure, so the p.r.n. dobutamine 2.5 mcg/kg/minute was started. Then, he regained his systolic blood pressure over 90 and overnight systolic blood pressure about 93. I talked to his daughter about what his own home situation is. 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 He also gets steroid injection in the left shoulder because of the chronic left shoulder pain. He also received one steroid injection about the neck, so all of these are potential problems. He has rheumatoid arthritis. He has been taking Humira and then later on switched to Orencia. This morning, Mr. Rogers is much more clear. He seems to know where he is now. He said he does not remember how he got to the hospital. He is still complaining of left shoulder pain and again is asking for help for the left shoulder pain. REVIEW OF SYSTEMS: GENERAL: Please see HPI, but there is no productive cough. HEENT: No change in vision, hearing, or swallowing. PULMONARY: He said his breathing is easier today. CARDIAC: There is no palpitation, chest pain, or syncope. GI: His nausea and vomiting have gone away. : There is no complaint. MUSCULOSKELETAL: See HPI, especially left shoulder pain. There is also left knee pain. INTEGUMENT: There are no new complaints about skin breakdown. NEUROLOGIC: There are no new focal deficits or weaknesses. PHYSICAL EXAMINATION: VITAL SIGNS: The telemetry was reviewed overnight. There is no concerning arrhythmia. There are some PVCs. He is A paced, V paced. From interrogation 3 days ago, he is 94% AV paced. His Bi-V pacing is about 95%, so he has a very good effective Bi-V pacing. Vital signs, heart rate paced at 80, blood pressure 93/ 55. GENERAL: He is alert and conversational, resting much more comfortably today in bed than yesterday. HEENT: Show EOMI. Oropharynx is benign with moist mucosa. NECK: His JVP is about 9 cm with positive hepatojugular reflux. PULMONARY: Good air movement bilateral. Slight right basilar crackles, but otherwise fairly benign. CARDIAC: Regular rate and rhythm with 2/6 diastolic murmur heard on both the right and the left sternal border. There is a 2/6 holosystolic murmur at the apex with radiation to the left axilla. ABDOMEN: Soft, nontender. Positive bowel sounds. EXTREMITIES: His lower extremities are warm and well perfused. There is no edema, but there is a bit of swelling in his left knee. There is also still pain in the left shoulder, however, both his shoulder and left knee are not hot like yesterday anymore. LABORATORY DATA: There are no new labs today. BEDSIDE VIEW OF ECHOCARDIOGRAM A bedside echocardiogram was done. It showed a left ventricular ejection fraction of about 40% to 45%. There is mild-moderate mitral regurgitation. There is also mild-moderate aortic insufficience and mild-moderate aortic stenosis. However, AV valve does open on every beat and peak pressure gradient of 20 mmHg suggest mild aortic stenosis. In contrast, the low LVOT velocity caused low ratio (LVOT velocity/AV velocity) to artifactually decrease AV opening area. There is stage III diastolic dysfunction with restrictive filling pattern. His right ventricle is moderately dilated, but normal function. It is not clear enough to rule out any vegetations. If endocarditis or vegetation on the lead wire is suspected, then a transesophageal echocardiogram will need to be done. I will have to go back and look on the big screen to better exam the images. His IVC collapses with the sniff. This showed that he is not volume overloaded. ASSESSMENT: 84-year-old gentleman has unclear cause of hypotension, fever yesterday, and rigors. It is most likely an infectious process. A gout flare is also possible. Some potential sources include the left shoulder since he has been complaining of left shoulder pain and he had multiple injections. Another potential is a zoonotic disease. He has been sick off and on with a low blood pressure for a while now. 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 He is an elderly gentleman and immunosuppressed. This combination would make him very susceptible to zoonotic infection such as Q fever. I appreciate Dr. Clements' careful examination of this patient. Mr. 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 However, the heart failure is not the cause of his hospitalization, it is not the principal cause of the current situation. He has been needing small IV boluses of fluid and dobutamine to maintain his blood pressure. With the IVC collapsing with sniff, again it shows that he is not volume overloaded. He currently lie in a vasodilatory state. The significant labs that came yesterday include very high CRP again to suggest inflammatory-infectious process. Please see the following for recommendations. RECOMMENDATIONS: 1. Please stop carvedilol today. We can restart that later. 2. Use low-dose dobutamine as you are to maintain systolic blood pressure and for output. 3. Please ask the Orthopedic Surgery to come back to take a look at his left shoulder again, but the patient was confused yesterday and inadvertently sent him away. After speaking to the patient, Mr. Rogers said he was confused yesterday, that is why he sent the orthopedic surgeon away. Mr. Rogers has agreed to let the orthopedic surgeon to examine him, do the shoulder films, and withdraw fluid from the left shoulder if needed to be. 4. Please contact daughter if a new pmo consultant comes in and please help Mr. Rogers work with any new consultants, because he has been confused. 5. Please consider reducing the dose of Neurontin from 300 twice a day down to 100 twice a day, that should help his blood pressure. 6. Please do daily labs. 7. This is a difficult situation, we will just have to take one day at a time until we solve the mystery of fever and hypotension of unclear etiology. It has been a pleasure taking care of Mr. Rogers. Please give me a call if you have any questions. Job ID: [id number] [facility]
--- NOTE | 2020-03-03 12:58 | PRG ---
DATE OF SERVICE: 03/03/2020 SUBJECTIVE: Donny is an 84-year-old male. We took on consult yesterday for complaints of left shoulder and left knee pain. By history, his left knee pain is very chronic in nature and he has had this for quite some time and plain radiographs, which he agreed to do today revealed he does have medial compartment arthrosis, but no significant effusion is noted on the lateral x-ray. Serial examinations failed to demonstrate significant enlargement of that knee. A shoulder is also about the same, but he complains of a little more acute pain within the last few weeks. Radiographs also demonstrate cephalad migration of the humeral head consistent with large rotator cuff arthropathy. He did have an effusion yesterday on examination and again serially today. There has not been a significant enlargement of that. His white cell count still is hanging around 6.5 and he has not had any significant fevers since I saw him yesterday. OBJECTIVE: VITAL SIGNS: Temperature 98, pulse 79, respiratory rate 20 and unlabored, O2 saturation is 96% on room air, blood pressure is 110/56. GENERAL: He is alert, appropriate, responsive, and little more compliant today with the examiner. He is not as obstinate and wanting to leave the hospital as he was yesterday. EXTREMITIES: Visual inspection of left shoulder demonstrates him to have about the same effusion as he had yesterday. It is not tensed or distended. No dislocation. No sulcus sign. Pain inhibits examination. He will not allow me to range the shoulder. He cannot actively or forward flex. He holds it next to his body. Examination of the knee demonstrates him to have the ability to flex and extend. He can bear weight on this as he has told me he has been able to walk, but no appreciable improvement in him and his clinical effusion size. He does have medial joint line tenderness as expected and he is stable to varus and valgus stressing. IMPRESSION: 1. [id number] left shoulder rotator cuff arthropathy with cephalad migration of humeral head. 2. Left knee medial joint line narrowing consistent with osteoarthritis of the left knee. Both joints have not appreciably become more swollen over the last 24 hours. He has remained stable and afebrile and his white count is not changing much. He does not fit the clinical picture of a septic arthritis clinically. PLAN: I will continue to follow and reexamine serially, but at this point, I do not think an arthrocentesis would be of significant benefit, but let us see how he looks tomorrow clinically and decide then. Job ID: [id number]
[2020-03-03 17:17] LABS: Ref Lab Test Ordered Q FEVER SEROLOGY; Reference Lab Name LABCORP
--- NOTE | 2020-03-03 17:34 | PRG ---
DATE OF SERVICE: 03/03/2020 SUBJECTIVE: Mr. Rogers is still complaining of pain in his left shoulder and left knee. He also has noticed worsening pain in the first MPJs of right and left feet which is the usual symptom associated with his gouty arthritis episodes. A little bit of dyspnea, but not much. No cough. No chest pain. No abdominal pain. Voiding without difficulty. He had a single isolated temperature elevation of 103 yesterday at 8:45 a.m. He does not recall much of that. OBJECTIVE: VITAL SIGNS: On room air, his O2 saturations were 95, temperature now 98.9, pulse 71, respirations 16. SKIN: Peripheral IV access. He is voiding in the urinal. GENERAL: Awake, alert. HEENT: Hearing is better with a better device today. Oral cavity normal. LUNGS: Faint basilar inspiratory crackles. No wheezing. HEART: S1-S2 without murmurs. No S3 or S4. ABDOMEN: Soft. Not distended or tender. No ascites. No bladder distention. EXTREMITIES: No warmth or swelling of the shoulder or knee. Range of motion is limited. Crepitus is noted. There is tenderness on palpation of the first MPJs of right and left feet. NEUROLOGIC: He is awake and oriented. LABORATORY DATA: White cell count 6.5, hemoglobin 8, platelets 347 with normal differential. Sodium 134. Creatinine 1.7. The patient has had 4 sets of blood cultures, thus far no growth. Urine culture with 25,000 mixed skin genevieve present. IMAGING STUDIES: Shoulder x-rays and knee x-rays with osteoarthrosis, but no other findings of significance. ASSESSMENT: Ischemic cardiomyopathy, doubt chronic obstructive pulmonary disease, hypotension, transient elevated CRP with pain in left knee, left shoulder, and bilateral MPJs. DISCUSSION: The differential diagnosis includes polyarticular gout which can be associated with transient fever versus opportunistic infectious process that appears to be less likely. The lung findings noticed in the last admission have resolved. He does not have evidence of intraabdominal inflammatory process. Orthopedic Surgery who has evaluated the patient felt that he did not have clinical findings consistent with inflammatory arthropathy in the knee or shoulder. I tend to agree with that. The inflammatory process seems to be restricted to the first MPJ of right and left feet and that is probably due to polyarticular gout. The assays are pending for the organisms mentioned in my previous note and continue management of gout. Job ID: [id number]
[2020-03-03] MEDS: Insulin Glargine 23 UNITS in Pre-Filled Syringe SC SCH (20:34)
[2020-03-04] MEDS: Ventolin HFA Inhaler 60 PUFF INHALER INH PRN (00:37)
[2020-03-04] MEDS: Levothyroxine Sodium 50 MCG TAB PO SCH (05:28)
[2020-03-04] MEDS: Mometasone 100 MCG/Formoterol 5 MCG 120 PUFF INHALER INH SCH ×2 (07:47→18:48)
[2020-03-04] MEDS ORDERED: Colchicine 0.6 MG TAB PO SCH (09:00)
--- NOTE | 2020-03-04 09:20 | PRG ---
DATE OF SERVICE: 03/04/2020 SUBJECTIVE: This morning, he is awake, alert, responsive, doing well. OBJECTIVE: VITAL SIGNS: Temperature 98, pulse on room air, blood pressure 116/79. CHEST: No wheezing or crackles. CARDIAC: Normal S1 and S2. No gallops. ABDOMEN: No masses. LABORATORY DATA: H and H 8 and 26, platelet count normal. His creatinine is slightly elevated, probably from the diuretics. Echo shows an EF of 45%. IMPRESSION: 1. Mild congestive heart failure. 2. Severe chronic obstructive pulmonary disease. No evidence of pneumonia. 3. Severe deconditioning. 4. Azotemia. PLAN: Disposition home any time. See in the office at a later time. Job ID: [id number]
[2020-03-04 09:28] LABS: Anion Gap 12 mmol/L (10-20); BUN (Urea Nitrogen) 30 mg/dL (8.4-25.7); Calc. Creatinine Clearance 49 mL/min (70-130); Calcium 8.8 mg/dL (7.8-10.44); Carbon Dioxide 28 mmol/L (23-31); Chloride 103 mmol/L (98-107); Estimated GFR-MDRD 52; Glucose 114 mg/dL (83-110); Magnesium 2.1 mg/dL (1.6-2.6); Potassium 3.9 mmol/L (3.5-5.1); Sodium 139 mmol/L (136-145)
[2020-03-04] MEDS: DOBUTamine 500 mg/250 ml 500 MG in Premix Bag 1 BAG IVPB SCH (09:45)
[2020-03-04 09:50] LABS: Hemoglobin 7.7 g/dL (14.0-18.0); Mean Corpuscular HGB CONC 29.3 g/dL (32.0-36.0); Mean Corpuscular Hemoglobin 27.6 pg (27.0-31.0); Mean Platelet Volume 7.4 fL (7.4-10.4); Platelet Count 393 thou/uL (130-400); RBC Distribution Width 17.5 % (11.5-14.5); Red Blood Cell (RBC) Count 2.77 mill/uL (4.70-6.10); White Blood Cell (WBC) Count 5.4 thou/uL (4.8-10.8)
[2020-03-04] MEDS: Amiodarone 200 MG TAB PO SCH (09:51)
[2020-03-04] MEDS: Aspirin Chewable 81 MG TAB PO SCH (09:51)
[2020-03-04] MEDS: Gabapentin 300 MG CAP PO SCH (09:51)
[2020-03-04] MEDS: Magnesium Oxide 400 MG TAB PO SCH (09:51)
[2020-03-04] MEDS: Allopurinol 100 MG TAB PO SCH ×2 (09:51→20:50)
[2020-03-04] MEDS: Colchicine 0.3 MG TAB PO SCH ×2 (09:52→20:51)
[2020-03-04 09:53] LABS: Band 7 % (5-11); Lymphocytes 28 % (21-51); MDiff Complete? YES; Monocytes 11 % (0-10); Myelocyte 1 % (0-0); Neutrophil 53 % (42-75); Platelet Morphology Comment Appears Adequate; Polychromasia SLIGHT = 2-3 cells (100X) (0-2/hpf)
[2020-03-04] MEDS: cefTRIAXone\\ROCEPHIN 2 GM in Sodium Chloride 0.9% 100 ML IVPB SCH (10:00)
--- NOTE | 2020-03-04 11:17 | PRG ---
DATE OF SERVICE: 03/04/2020 SERVICE: [facility]. SUBJECTIVE: Mr. Rogers had a good day. He was lucid. He was able to interact with the different doctors without difficulties. He was able to remain fever free without acetaminophen yesterday. He is also breathing easier. However, he still has a left shoulder pain, but is less so. He still has some left knee pain, but less so. REVIEW OF SYSTEMS: GENERAL: There is no fever, chills, productive cough at this time around. HEENT: There is no changing in vision, hearing, or swallowing. PULMONARY: See HPI. CARDIAC: There are no palpitations, syncope, or severe shortness of breath. GI: There is no nausea or vomiting today. : He is able to urinate. MUSCULOSKELETAL: Please see HPI. INTEGUMENT: He is still to have a sore spot on his back. NEUROLOGIC: There are no new focal deficits or weaknesses. MEDICATIONS: His cardiac medications are quite minimal. They include: 1. Amiodarone 200 mg daily. 2. Dobutamine at 2.5 mcg/kg/minute. 3. Aspirin 81 mg daily. 4. He has a thyroid supplementation, has increased to levothyroxine at 50 mcg daily. PHYSICAL EXAMINATION: The telemetry was reviewed. He is predominantly AV-paced. There is occasional PVC, but there is no concerning arrhythmia. VITAL SIGNS: Current vital signs are heart rate paced at 80, blood pressure 116/56. GENERAL: He is alert and conversational, almost reclining comfortably in bed. He is able to maintain medium length sentence without needing oxygen supplementation. This is an improvement. HEENT: Shows EOMI. Oropharynx benign with moist mucosa. NECK: His JVP is up about 10 cm with positive hepatojugular reflux. PULMONARY: There is good air movement, bilateral. However, he has more crackles on the left base and slight crackles at the right base, so this is increased from yesterday. CARDIAC: He has regular rate and rhythm. There is 2/6 systolic murmur at right upper sternal border. It does mid peaking. There is a 2/6 diastolic murmur at lower right and left sternal border. This corresponds to aortic insufficiency. He also has a 2/6 holosystolic murmur at the apex with radiation to the left axilla which corresponds to mitral regurgitation. ABDOMEN: Soft, nontender, somewhat distended. There are positive bowel sounds. EXTREMITIES: His lower extremities are without edema, are warm, well perfused and barely palpable DPs, but this is normal for him. LABORATORY VALUES: His laboratory values show hemoglobin 8, hematocrit 26.2. His chemistry showed that sodium is 139, potassium 3.9, BUN has improved to 30 and creatinine has improved to 1.31. His I's and O's: Input 1546, output 2280, and -733. Echocardiogram was reviewed. He may not have severe aortic stenosis. It could be under measurements of the outflow tract velocity to cause this to be artificially elevated. There is also potential something around the aortic valve, but this will be investigated with the following transthoracic echocardiogram. ASSESSMENT: An 84-year-old gentleman has improved. He is now fever free for at least a day. He is just regaining blood pressure. This seemed to be respond to antibiotics. However, he seemed to be a little bit more volume overloaded with increasing pulmonary crackles. His anemia is also getting a bit worse. He cannot go home on dobutamine; thus, we need to find a way to transition off dobutamine and restart a minimal amount of a heart failure medication in order to go home. It is still a mystery why is he having fevers and hypotension on repeated basis; consequently, infectious process is probably present. RECOMMENDATIONS: 1. Transfuse 1 unit of blood. 2. Lasix 40 mg IV one dose after transfusion of blood. 3. Restart spironolactone 25 mg daily tomorrow. 4. We will begin titrating of dobutamine after the blood transfusion. Please resend for Q fever serology. Apparently, overall IgG/IgM was collected instead of Q fever. 5. We will request limited TTE to re-examine aortic valve. 6. We need to transition the patient off dobutamine and a sufficient amount of heart failure medication before they can go home. We will aim for 1 to 2 days. 7. We will defer to Infectious Disease to consider suppressive antibiotics. It has been a pleasure taking care of Mr. Donny Rogers. If you have any questions, please give me a call. Job ID: [id number] [facility]
--- NOTE | 2020-03-04 11:49 | PDOC.HOSPP ---
- Subjective Encounter Date: 03/04/20 Encounter Time: 07:00 Subjective: feels better, wants to go home no new symptoms or complaints he is up sitting on bed, eating his breakfast - Objective Vital Signs & Weight: Vital Signs (12 hours) Temp Pulse Resp BP Pulse Ox 03/04/20 11:18 98.3 F 83 20 121/58 L 96 03/04/20 07:47 88 16 03/04/20 07:45 88 16 03/04/20 07:22 98.9 F 79 20 116/79 96 03/04/20 07:15 95 03/04/20 04:00 98.6 F 80 20 122/61 97 03/04/20 00:37 18 95 Weight Weight 179 lb 12.8 oz I&O: 03/03/20 03/04/20 03/05/20 06:59 06:59 06:59 Intake Total 840 1546.2 Output Total 800 2280 Balance 40 -733.8 Result Diagrams: 03/04/20 08:44 03/04/20 08:44 Additional Labs: Accuchecks 03/04/20 03/04/20 03/03/20 10:52 06:21 20:43 POC Glucose 151 H 120 H 121 H 03/03/20 16:37 POC Glucose 83 Hospitalist ROS - Medication Medications: Active Medications Generic Name Dose Route Start Last Admin Trade Name Freq PRN Reason Stop Dose Admin Acetaminophen 650 mg 02/29/20 12:22 03/02/20 09:07 Tylenol PO 650 mg Q4H PRN Administration Headache/Fever/Mild Pain (1-3) Albuterol Sulfate 2 puff 02/29/20 12:22 03/04/20 00:37 Ventolin Hfa Inhaler INH 2 puff Q6H PRN Administration SOB &/or Wheezing Albuterol/Ipratropium 3 ml 03/01/20 13:00 03/04/20 07:45 Duoneb NEB 3 ml [id number] FUNMI Administration Allopurinol 100 mg 02/29/20 21:00 03/04/20 09:51 Zyloprim PO 100 mg BID FUNMI Administration Amiodarone HCl 200 mg 03/01/20 09:00 03/04/20 09:51 Cordarone PO 200 mg DAILY FUNMI Administration Aspirin 81 mg 03/01/20 09:00 03/04/20 09:51 Aspirin Chewable PO 81 mg DAILY FUNMI Administration Colchicine 0.3 mg 03/04/20 09:00 03/04/20 09:52 Colcrys PO 0.3 mg BID FUNMI Administration Insulin Glargine 23 units/ 0.23 mls @ 0 mls/hr 02/29/20 21:00 03/03/20 20:34 Miscellaneous Medication SC 0.23 mls HS FUNMI Administration Ceftriaxone Sodium 2 gm/ 100 mls @ 200 mls/hr 03/02/20 11:00 03/04/20 10:00 Sodium Chloride IVPB 100 mls Q24HR FUNMI Administration Dobutamine HCl/Dextrose 500 mg 250 mls @ 6.05 mls/hr 03/02/20 11:00 03/04/20 09:45 / Device IVPB 250 mls INF FUNMI Administration 2.5 MCG/KG/MIN Insulin Human Lispro 0 units 02/29/20 12:22 03/03/20 12:13 Humalog SC 2 unit .MODERATE SLIDING SC PRN Administration Moderate Correctional Scale Levothyroxine Sodium 50 mcg 03/03/20 06:00 03/04/20 05:28 Synthroid PO 50 mcg 0600 FUNMI Administration Magnesium Oxide 400 mg 03/04/20 09:00 03/04/20 09:51 Magnesium Oxide PO 400 mg DAILY FUNMI Administration Mometasone Furoate/Formoterol Fumar 2 puff 02/29/20 18:30 03/04/20 07:47 Dulera 100 Mcg/5 Mcg Inhaler INH 2 puff BID-RT FUNMI Administration Pantoprazole Sodium 40 mg 03/01/20 09:00 03/04/20 09:51 Protonix PO 40 mg DAILY FUNMI Administration Sertraline HCl 25 mg 03/01/20 09:00 03/04/20 09:51 Zoloft PO 25 mg DAILY FUNMI Administration Sodium Chloride 10 ml 03/02/20 09:00 03/04/20 10:00 Flush - Normal Saline IVF 10 ml Q12HR FUNMI Administration - Exam General Appearance: awake alert Eye: PERRL, anicteric sclera ENT: no oropharyngeal lesions, moist mucosa Neck: supple, no JVD Heart: RRR, murmur present Respiratory: no wheezes, rhonchi Gastrointestinal: soft, non-tender, non-distended, normal bowel sounds Extremities: no cyanosis, no edema Neurological: cranial nerve grossly intact, no focal deficits Psychiatric: A&O x 3 Hosp A/P (1) Hypotension Status: Acute (2) Anemia, normocytic normochromic Code(s): D64.9 - ANEMIA, UNSPECIFIED Status: Chronic (3) Anxiety and depression Code(s): F41.9 - ANXIETY DISORDER, UNSPECIFIED; F32.9 - MAJOR DEPRESSIVE DISORDER, SINGLE EPISODE, UNSPECIFIED Status: Chronic (4) CAD (coronary artery disease) Code(s): I25.10 - ATHSCL HEART DISEASE OF [place] CORONARY ARTERY W/O ANG PCTRS Status: Chronic Qualifiers: Coronary Disease-Associated Artery/Lesion type: bypass graft [place] vs. transplanted heart: [place] heart Associated angina: without angina Qualified Code(s): I25.810 - Atherosclerosis of coronary artery bypass graft(s) without angina pectoris (5) COPD (chronic obstructive pulmonary disease) Status: Chronic Qualifiers: COPD type: chronic bronchitis (6) Chronic atrial fibrillation Code(s): I48.2 - CHRONIC ATRIAL FIBRILLATION * DO NOT USE * Status: Chronic (7) Chronic stage c diastolic heart failure Code(s): I50.32 - CHRONIC DIASTOLIC (CONGESTIVE) HEART FAILURE Status: Chronic (8) Gout Code(s): M10.9 - GOUT, UNSPECIFIED Status: Chronic Qualifiers: Gout site: multiple sites Encounter type: subsequent encounter Presence of tophus: without tophus (9) HTN (hypertension) Code(s): I10 - ESSENTIAL (PRIMARY) HYPERTENSION Status: Chronic Qualifiers: (10) Moderate aortic regurgitation Code(s): I35.1 - NONRHEUMATIC AORTIC (VALVE) INSUFFICIENCY Status: Chronic (11) Physical deconditioning Code(s): R53.81 - OTHER MALAISE Status: Acute (12) Fever and chills Code(s): R50.9 - FEVER, UNSPECIFIED Status: Resolved (13) Gout attack Code(s): M10.9 - GOUT, UNSPECIFIED Status: Acute Qualifiers: Gout site: multiple sites Gout etiology: idiopathic Qualified Code(s): M10.09 - Idiopathic gout, multiple sites - Plan blood cs x4 is -ve is on ceftriaxone, echo showed possible severe aortic stenosis, a limited repeat echo to look for aortic valve has been ordered by . d/w Kristopher, no signs of septic arthritis in left shoulder or knee, will cut back on colchicine to 0.3mg bid. is on low dose dobutamine d/w daughter and POA extensively, gave full updates, he will be DNAR (03/02/2020 ) and today as well (03/04/2020). PT has evaluated him and recommend rehab/swing or skilled, he has ambulated around 40ft with rw has multiple med issues, hardware, and spine plus shoulder arthritis in addition to gout and current deconditioning has freq falls at home especially at night when he tries to get up with out assistance. continue current meds He does not like going to snf or NH. His girlfriend is home 27/05 and can help him if he mobilizes a bit (rehab or [facility] is fine if he needs it but they prefer home health) Plain xrays of left knee and left shoulder reviewed infectious w/u so far is -ve, fever and chills have abated. dc plan when he is off dobutamine, he likely will run his sbp around 100-110. Appreciate help from Starr Toussaint and Kristopher.
[2020-03-04] MEDS ORDERED: Furosemide 40 MG/4 ML VIAL SLOW IVP SCH (13:45)
[2020-03-04] MEDS ORDERED: diphenhydrAMINE 25 MG CAP PO SCH ×2 (14:45→15:00)
[2020-03-04] MEDS: Insulin Glargine 23 UNITS in Pre-Filled Syringe SC SCH ×2 (20:51→20:53)
[2020-03-05] MEDS: Levothyroxine Sodium 50 MCG TAB PO SCH (05:38)
[2020-03-05] MEDS: Mometasone 100 MCG/Formoterol 5 MCG 120 PUFF INHALER INH SCH ×2 (06:35→18:39)
[2020-03-05] MEDS: Amiodarone 200 MG TAB PO SCH (08:24)
[2020-03-05] MEDS: Colchicine 0.3 MG TAB PO SCH ×2 (08:24→20:50)
[2020-03-05] MEDS: Multivit, Therapeutic 1 TAB PO SCH (08:24)
[2020-03-05] MEDS: Ferrous Sulfate 325 MG TAB PO SCH (08:24)
[2020-03-05] MEDS: Aspirin Chewable 81 MG TAB PO SCH (08:24)
[2020-03-05] MEDS: Magnesium Oxide 400 MG TAB PO SCH (08:24)
[2020-03-05] MEDS: Folic Acid 1 MG TAB PO SCH (08:24)
[2020-03-05] MEDS: Cyanocobalamin (Vitamin B-12) 1,000 MCG TAB PO SCH (08:24)
[2020-03-05] MEDS: Allopurinol 100 MG TAB PO SCH ×2 (08:25→20:53)
[2020-03-05] MEDS: Gabapentin 100 MG CAP PO SCH (08:25)
[2020-03-05 09:41] LABS: Hemoglobin 9.8 g/dL (14.0-18.0); Mean Corpuscular HGB CONC 31.8 g/dL (32.0-36.0); Mean Corpuscular Hemoglobin 29.5 pg (27.0-31.0); Mean Corpuscular Volume 92.5 fL (78.0-98.0); Mean Platelet Volume 7.2 fL (7.4-10.4); Platelet Count 391 thou/uL (130-400); RBC Distribution Width 17.1 % (11.5-14.5); Red Blood Cell (RBC) Count 3.32 mill/uL (4.70-6.10)
[2020-03-05 09:52] LABS: Anion Gap 14 mmol/L (10-20); BUN (Urea Nitrogen) 20 mg/dL (8.4-25.7); Calc. Creatinine Clearance 60 mL/min (70-130); Calcium 9.2 mg/dL (7.8-10.44); Carbon Dioxide 27 mmol/L (23-31); Chloride 103 mmol/L (98-107); Estimated GFR-MDRD 68; Glucose 137 mg/dL (83-110); Magnesium 1.9 mg/dL (1.6-2.6); Potassium 3.7 mmol/L (3.5-5.1); Sodium 140 mmol/L (136-145)
--- NOTE | 2020-03-05 10:19 | PDOC.HOSPP ---
- Subjective Encounter Date: 03/05/20 Encounter Time: 08:15 Subjective: Patient seen and examined for Hypotension/Anemia. Feeling better. On chair. No new complaints. No overnight events - Objective Vital Signs & Weight: Vital Signs (12 hours) Temp Pulse Resp BP Pulse Ox 03/05/20 07:05 97.9 F 80 18 141/71 H 94 L 03/05/20 06:35 76 12 03/05/20 03:28 98.0 F 80 20 113/56 L 93 L 03/05/20 00:08 96 03/05/20 00:00 83 133/65 Weight Weight 174 lb 8 oz I&O: 03/04/20 03/05/20 03/06/20 06:59 06:59 06:59 Intake Total 1546.2 350 Output Total 2280 Balance -733.8 350 Result Diagrams: 03/05/20 09:15 03/05/20 09:15 Additional Labs: Accuchecks 03/04/20 03/04/20 03/04/20 20:26 16:30 10:52 POC Glucose 107 147 H 151 H EKG Reviewed by me: Yes (Tele paced) Hospitalist ROS - Review of Systems Respiratory: denies: cough, dry, shortness of breath, hemoptysis, SOB with excertion, pleuritic pain, sputum, wheezing, other Cardiovascular: denies: chest pain, palpitations, orthopnea, paroxysmal noc. dyspnea, edema, light headedness, other - Medication Medications: Active Medications Generic Name Dose Route Start Last Admin Trade Name Freq PRN Reason Stop Dose Admin Acetaminophen 650 mg 02/29/20 12:22 03/02/20 09:07 Tylenol PO 650 mg Q4H PRN Administration Headache/Fever/Mild Pain (1-3) Albuterol Sulfate 2 puff 02/29/20 12:22 03/04/20 00:37 Ventolin Hfa Inhaler INH 2 puff Q6H PRN Administration SOB &/or Wheezing Albuterol/Ipratropium 3 ml 03/01/20 13:00 03/05/20 06:35 Duoneb NEB 3 ml [id number] FUNMI Administration Allopurinol 100 mg 02/29/20 21:00 03/05/20 08:25 Zyloprim PO 100 mg BID FUNMI Administration Amiodarone HCl 200 mg 03/01/20 09:00 03/05/20 08:24 Cordarone PO 200 mg DAILY FUNMI Administration Aspirin 81 mg 03/01/20 09:00 03/05/20 08:24 Aspirin Chewable PO 81 mg DAILY FUNMI Administration Colchicine 0.3 mg 03/04/20 09:00 03/05/20 08:24 Colcrys PO 0.3 mg BID FUNMI Administration Cyanocobalamin 1,000 mcg 03/05/20 09:00 03/05/20 08:24 Vitamin B-12 PO 1,000 mcg DAILY FUNMI Administration Ferrous Sulfate 325 mg 03/05/20 08:00 03/05/20 08:24 Feosol PO 325 mg QAM-WM FUNMI Administration Folic Acid 1 mg 03/05/20 09:00 03/05/20 08:24 Folvite PO 1 mg DAILY FUNMI Administration Gabapentin 100 mg 03/05/20 09:00 03/05/20 08:25 Neurontin PO 100 mg DAILY FUNMI Administration Insulin Glargine 23 units/ 0.23 mls @ 0 mls/hr 02/29/20 21:00 03/04/20 20:53 Miscellaneous Medication SC Not Given HS FUNMI Ceftriaxone Sodium 2 gm/ 100 mls @ 200 mls/hr 03/02/20 11:00 03/04/20 10:00 Sodium Chloride IVPB 100 mls Q24HR FUNMI Administration Dobutamine HCl/Dextrose 500 mg 250 mls @ 3.02 mls/hr 03/02/20 11:00 03/04/20 09:45 / Device IVPB 250 mls INF FUNMI Administration 1.25 MCG/KG/MIN Insulin Human Lispro 0 units 02/29/20 12:22 03/03/20 12:13 Humalog SC 2 unit .MODERATE SLIDING SC PRN Administration Moderate Correctional Scale Levothyroxine Sodium 50 mcg 03/03/20 06:00 03/05/20 05:38 Synthroid PO 50 mcg 0600 FUNMI Administration Magnesium Oxide 400 mg 03/04/20 09:00 03/05/20 08:24 Magnesium Oxide PO 400 mg DAILY FUNMI Administration Mometasone Furoate/Formoterol Fumar 2 puff 02/29/20 18:30 03/05/20 06:35 Dulera 100 Mcg/5 Mcg Inhaler INH 2 puff BID-RT FUNMI Administration Multivitamins 1 tab 03/05/20 09:00 03/05/20 08:24 Theragran PO 1 tab DAILY FUNMI Administration Pantoprazole Sodium 40 mg 03/01/20 09:00 03/05/20 08:24 Protonix PO 40 mg DAILY FUNMI Administration Sertraline HCl 25 mg 03/01/20 09:00 03/05/20 08:24 Zoloft PO 25 mg DAILY FUNMI Administration Sodium Chloride 10 ml 03/02/20 09:00 03/05/20 08:25 Flush - Normal Saline IVF 10 ml Q12HR FUNMI Administration - Exam General Appearance: NAD General - other findings: on Dobutamine drip Heart: RRR, no gallops Respiratory: no wheezes, no rales Gastrointestinal: soft, non-tender, no guarding, no rigidity Extremities: no cyanosis, no clubbing Hosp A/P - Plan DVT proph w/SCDs Hypotension/fever - multifactorial Acute on chronic sytolic/diastolic HF - on Dobutamine drip Acute on chronic SHANTELL - s/p PRBC Aortic stenosis Gout DJD CAD HTN DM2 PLAN: Wean Dobutamine today per Dr Lamin Kimble will add Aldactone if BP can tolerate Cont IV Ceftriaxone AM labs Await ID test results Will d/w ID if pt requires any antibiotics Cont other meds as above
[2020-03-05 10:21] LABS: Hypochromia MODERATE=16-30 cells (100X) (0-5/hpf); Lymphocytes 31 % (21-51); MDiff Complete? YES; Monocytes 18 % (0-10); Neutrophil 51 % (42-75); Platelet Morphology Comment Appears Adequate
[2020-03-05] MEDS: cefTRIAXone\\ROCEPHIN 2 GM in Sodium Chloride 0.9% 100 ML IVPB SCH (10:55)
--- NOTE | 2020-03-05 12:05 | PRG ---
DATE OF SERVICE: 03/05/2020 SERVICE: This is from [facility]. SUBJECTIVE: Mr. Rogers had an excellent day. He felt much stronger after transfusion of 1 unit of blood. His blood pressure went from the high 90s to 102, now 120s to 140. He also received Lasix 40 mg IV one dose that causes significant amount of diuresis. He says he felt much better afterwards from both. He is breathing easy. Right now, he is sitting comfortably on the chair and talking well. He wants to go home as soon as possible. However, he said that he cannot take iron supplement by mouth. He normally received iron transfusion once a month from Dr. Dianelys Grande. REVIEW OF SYSTEMS: GENERAL: There is no fever, chills, or productive cough. HEENT: There is no change in hearing, vision, or swallowing. PULMONARY: Please see HPI. CARDIAC: There are no palpitations, chest pain, or syncope. GI: He is able to eat without nausea or vomiting. : He is urinating well. MUSCULOSKELETAL: He is complaining less of left shoulder pain today. INTEGUMENT: He still has a sore spot on his bottom, but he has not complained much about it today. NEUROLOGIC: There are no focal weaknesses or deficits. PHYSICAL EXAMINATION: Telemetry is reviewed. He is AV paced at a rate between 80 and 90. It is likely that with cessation of carvedilol, to give him AV pacing. VITAL SIGNS: His current vitals are heart rate 80, blood pressure 141/71, and 94% oxygen saturation on room air. GENERAL: He is alert and conversational. He can sustain a medium length sentence better. This is improvement. HEENT: Show EOMI. Oropharynx benign. NECK: He has about 9 cm positive hepatojugular reflux. LUNGS: Much better air movement lung aeration has much improved from yesterday. CARDIAC: Regular rate and rhythm with 2/6 crescendo decrescendo murmur at right upper sternal border and also 2/6 diastolic murmur at both left and right side of sternal border. There is 2/6 holosystolic murmur at apex with radiation to the left axilla. So consequently, he has combination of , AI, and also MR. This is baseline. ABDOMEN: Soft, nontender. Positive bowel sounds. EXTREMITIES: Lower extremities are without edema. They are warm and well perfused. There are excellent dorsalis pedal pulses. LABORATORY VALUES: There are no labs this morning. He was told that it will be drawn at 9 a.m. ASSESSMENT: An 84-year-old gentleman is recovering from recent bouts of fever and hypotension. Transfusion of 1 unit of blood really help his blood pressure. He seemed to respond possibly to antibiotics also. There was sufficient blood pressure, but now we can titrate off dobutamine today. Hopefully, we can restart spironolactone in the near future as a minimal heart failure medication before going home. RECOMMENDATIONS: Please see the following for recommendations, 1. Reduce dobutamine down to 1.25 mcg/kg/minute IV gtt. If he is able to maintain his systolic blood pressure above 100, he can stop dobutamine then. 2. Please ensure morning labs are done. 3. Depending on the morning labs and also his blood pressure throughout the day, we may or may not be able to start spironolactone 25 mg a day. If we can, then he can go home tomorrow. 4. We will review the followup focus imaging on aortic valve. If it looks suspicious, we will need to consider transesophageal echocardiogram on Saturday. 5. We will defer to the Infectious Disease consult on the need for longer-term antibiotics as discharge medications. He may need this because this is second admission for fever and hypotension. Yet, the source of the infection still has yet to be found. It has been a pleasure taking care of Mr. Donny Rogers. If you have any questions, please give me a call. Job ID: [id number]
[2020-03-05] MEDS ORDERED: Spironolactone 25 MG TAB PO SCH (18:30)
[2020-03-05] MEDS: Insulin Glargine 23 UNITS in Pre-Filled Syringe SC SCH (20:54)
[2020-03-05] MEDS ORDERED: Saccharomyces boulardii 250 MG CAP PO SCH (21:00)
[2020-03-06 03:53] VITALS: TEMP 97.8
[2020-03-06] MEDS: Levothyroxine Sodium 50 MCG TAB PO SCH (05:49)
[2020-03-06] MEDS: Mometasone 100 MCG/Formoterol 5 MCG 120 PUFF INHALER INH SCH (07:03)
[2020-03-06] MEDS: Folic Acid 1 MG TAB PO SCH (08:37)
[2020-03-06] MEDS: Aspirin Chewable 81 MG TAB PO SCH (08:37)
[2020-03-06] MEDS: Gabapentin 100 MG CAP PO SCH (08:37)
[2020-03-06] MEDS: Colchicine 0.3 MG TAB PO SCH (08:37)
[2020-03-06] MEDS: Ferrous Sulfate 325 MG TAB PO SCH (08:37)
[2020-03-06] MEDS: Multivit, Therapeutic 1 TAB PO SCH (08:37)
[2020-03-06] MEDS: Amiodarone 200 MG TAB PO SCH (08:37)
[2020-03-06] MEDS: Allopurinol 100 MG TAB PO SCH (08:37)
[2020-03-06] MEDS: Magnesium Oxide 400 MG TAB PO SCH (08:37)
[2020-03-06] MEDS: Cyanocobalamin (Vitamin B-12) 1,000 MCG TAB PO SCH (08:37)
[2020-03-06 09:06] LABS: Mean Corpuscular HGB CONC 31.2 g/dL (32.0-36.0); Mean Corpuscular Hemoglobin 28.8 pg (27.0-31.0); Mean Corpuscular Volume 92.2 fL (78.0-98.0); Mean Platelet Volume 7.3 fL (7.4-10.4); Platelet Count 408 thou/uL (130-400); RBC Distribution Width 17.2 % (11.5-14.5); Red Blood Cell (RBC) Count 3.46 mill/uL (4.70-6.10); White Blood Cell (WBC) Count 6.3 thou/uL (4.8-10.8)
[2020-03-06 09:23] LABS: Anion Gap 12 mmol/L (10-20); BUN (Urea Nitrogen) 15 mg/dL (8.4-25.7); Calc. Creatinine Clearance 63 mL/min (70-130); Calcium 9.5 mg/dL (7.8-10.44); Carbon Dioxide 28 mmol/L (23-31); Chloride 104 mmol/L (98-107); Estimated GFR-MDRD 73; Glucose 158 mg/dL (83-110); Potassium 3.8 mmol/L (3.5-5.1); Sodium 140 mmol/L (136-145)
[2020-03-06] MEDS ORDERED: Spironolactone 25 MG TAB PO SCH (10:45)
[2020-03-06] MEDS: cefTRIAXone\\ROCEPHIN 2 GM in Sodium Chloride 0.9% 100 ML IVPB SCH (11:05)
[2020-03-06 11:12] VITALS: BP 128/71
[2020-03-06 12:17] LABS: Eosinophils 1 % (0-10); Large Platelets SLIGHT; Lymphocytes 20 % (21-51); MDiff Complete? YES; Monocytes 18 % (0-10); Neutrophil 61 % (42-75); Platelet Morphology Comment Appears Increased
--- NOTE | 2020-03-06 13:35 | PRG ---
DATE OF SERVICE: 03/06/2020 SERVICE: [facility]. HISTORY: Mr. Donny Rogers had an excellent day. He is breathing well. He is sleeping well. He is sleeping nearly flat. He does not have any shortness of breath. He does not have any fever, chills or cough. He really wants to go home. Dobutamine was able to be titrated off. He was able to hold the blood pressure without dobutamine. He also tolerates first dose of spironolactone 12.5 mg. Thus, a full dose spironolactone can be started today. Mr. Rogers told me that his daughter brought home a stray kitten late November 2019. The stray kitten was very sick and small. Eventually, they took care of the kitten at home and helped it. The kitten grew.. Unfortunately, kitten was quite rambunctious. It scratched him many times, also bit him many times. It did cause bleeding and this occurred before his admission, January. After he was discharged home from the last admission, the kitten's front paws were declawed; however, the kitten did bite him several times. He used topical antibiotics to cover the bite spots. Both the scratch and bite spots did break skin and cause bleeding. REVIEW OF SYSTEMS: GENERAL: There is no fever, chills or productive cough. HEENT: There is no change in vision, hearing or swallowing. PULMONARY: See HPI. CARDIAC: No palpitation, chest pain or syncope. GI: He is eating well, but he does not like the food, he thinks his food is terrible in the hospital. : He is urinating well. MUSCULOSKELETAL: He is not really complaining of joint pains today. INTEGUMENT: He still has a sore spot on back. NEUROLOGIC: There are no new focal deficits or weaknesses. MEDICATIONS: His cardiac medications consist of, 1. Amiodarone 200 mg daily. 2. Magnesium oxide 400 mg daily. 3. He is still on ceftriaxone 2 g daily. PHYSICAL EXAMINATION: Telemetry was reviewed. His leads were correctly, however, there are no concerning arrhythmia. His rate is about 80, that is exactly his paced rhythm. His AV paced at 80. VITAL SIGNS: The latest vitals are heart rate 80, blood pressure 124/66, he is saturating 95% on room air. GENERAL: He is alert, quite pleasant, and conversational. He is able to maintain medium length sentence without difficulties. HEENT: EOMI. Oropharynx benign with moist mucosa. NECK: JVP is about 9 cm. PULMONARY: Good air movement, bilateral. There are slight bilateral crackles at the bases. These are chronic. Some of that could be due to COPD. CARDIAC: Regular rate and rhythm with 2/6 crescendo-decrescendo murmur in the right upper sternal border. There is a 2/6 diastolic murmur at the right lower sternal border and the left lower spinal border. He also has 2/6 holosystolic murmur at the apex with radiation to the left axilla. This is a combination of aortic regurgitation, aortic stenosis, and also mitral regurgitation murmur. ABDOMEN: Soft and nontender. Positive bowel sounds. EXTREMITIES: Lower extremities are without edema. Warm and well perfused. Positive dorsalis pedis pulses bilaterally. LABORATORY DATA: The laboratory values are excellent. His chemistry shows sodium of 140, potassium of 3.8, BUN of 15, and creatinine of 0.98. ASSESSMENT AND PLAN: This 84-year-old gentleman has recovered in most excellent manner. With the new revolution of cat scratching him and biting him since December, this raised the possibility of Bartonella henselae, cat scratch fever to be very plausible. It correlated with a big change in hemodynamics from hypertension down to hypotension. It also correlated with his fevers. Thus, the real possibility for Bartonella henselae is very difficult to obtain from blood cultures. Thus, treating this could be the solution. From a cardiac perspective, he is in [place] [employer] stage C and [place] Heart Association class III heart failure with reduced ejection fraction, that is recovering. He is currently well compensated and euvolemic. Currently, he has no cardiac issue. Please see the following for my recommendations. 1. Restart spironolactone at 25 mg daily. 2. Hold off carvedilol for now until he has proven that he can sustain systolic blood pressure. We can restart his carvedilol as outpatient. 3. Torsemide 10 mg p.r.n. for weight gain more than 2 pounds in one day. He is not going to tolerate daily dose of torsemide; however, if he has indiscretion where he ate salty foods, then he will need Torsemide to catch up. 4. Infectious Disease consult to consider treating him for Bartonella henselae. His antibiotic regimen is what holding him in the hospital. It has been a pleasure taking care of Mr. Donny Rogers. Job ID: [id number]
--- NOTE | 2020-03-06 18:39 | DIS ---
DATE OF ADMISSION: 03/01/2020 DATE OF DISCHARGE: 03/06/2020 DISCHARGE DISPOSITION: Home. FOLLOWUP: 1. Follow up with primary care physician, Dr. Bang, in 1 week. 2. [facility] has been arranged. 3. Follow up with Dr. Clements as outpatient. TESTS PENDING AT DISCHARGE: Brucella, Bartonella, Q fever, and Karius testing. A comprehensive metabolic profile with magnesium every week has been recommended by Dr. Kimble. Primary care physician advised to follow. CODE STATUS: Do not resuscitate. 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 Cardiology, Dr. Kimble. 2. Infectious Disease, Dr. Clements. 3. Orthopedic team. BRIEF HOSPITAL COURSE: The patient is an 84-year-old male with recent hospitalization for CHF exacerbation and sepsis, presented to the hospital with hypotension. His blood pressure was 64/48. Please refer to the history and physical dated March 01, 2020, for further details. The patient was admitted to the hospital with a diagnosis of hypotension of unclear etiology. He was evaluated by Infectious Disease. His blood culture remained negative. Urine cultures were negative as well. He was placed on empiric antibiotics. The patient has been afebrile for more than 48 to 72 hours. He spiked a temperature of 103.1 on the 02 of March. He was also placed on dobutamine drip per Dr. Kimble that was discontinued yesterday. Aldactone has been resumed. Carvedilol will be held. He has been started on torsemide on an as-needed basis. He also reported getting scratched and bitten by his cat. Several tests are pending at the time of discharge. Dr. Clements recommended to hold antibiotics for now. His blood pressure has been stable and is 128/71 at the time of discharge. FINAL DIAGNOSES: 1. Hypotension with fever of unclear etiology. 2. Acute on chronic systolic/diastolic heart failure exacerbation, requiring dobutamine drip. Repeat echocardiogram this admission showed ejection fraction of 40% to 45%. 3. Moderate mitral regurgitation. 4. [id number] aortic stenosis. 5. Moderate aortic regurgitation. 6. Uyijadbr-qx-[id number] tricuspid regurgitation. 7. Moderate pulmonic regurgitation. 8. History of ventricular tachycardia/torsade. 9. Diabetes mellitus type 2. 10. Hypothyroidism. 11. Coronary artery disease. 12. History of gout with suspected gout flare. 13. Hypertension. 14. Physical deconditioning. 15. Anemia of unclear etiology, status post 1 unit of PRBC this admission. Stool for occult blood was negative. 16. Acute kidney injury on chronic kidney disease stage 2, present on admission. 17. Elevated inflammatory markers. The patient and the family understand the above plan of care. Job ID: [id number]
[2020-03-07] MEDS ORDERED: Spironolactone 25 MG TAB PO SCH (08:00)
[2020-03-07 12:09] LABS: Bartonella henselae IgG Negative titer (Neg:<1:320); Bartonella henselae IgM Negative titer (Neg:<1:100); Bartonella quintana IgG Negative titer (Neg:<1:320); Bartonella quintana IgM Negative titer (Neg:<1:100)
--- NOTE | 2020-03-08 04:46 | PQF ---
DEBORAH VEGA MALIK MD [id number] CLINICAL DOCUMENTATION CLARIFICATION FORM: POST DISCHARGE Addendum to original discharge summary date: ____ Late entry note date: __ DATE: 03/08/20 ATTN: Bhargav Huston Please exercise your independent, professional judgment in responding to the clarification form. Clinical indicators are provided on the bottom of this form for your review Can you please further clarify the etiology of hypotension? Please check appropriate box(s): [ x ] Hypotension due to unclear etiology [ ] Iatrogenic Hypotension [ ] Orthostatic Hypotension [ ] Hypotension due to dehydration [ ] Hypotension due to medication [ ] Drug induced hypotension [ ] Other diagnosis please specify [ ] Unable to determine In addition, please specify: Present on Admission (POA): [ ] Yes [ ] No [ ] Unable to determine For continuity of documentation, please document condition throughout progress notes and discharge summary. Thank You. CLINICAL INDICATORS - SIGNS / SYMPTOMS / LABS Consult Dr Sean Melton- Hypotension probably volume depletion Consult Dr. Kimble pg.3- apparently, lasix 20mg IV was given on morning of March 01 and that was reported to caused hypotension PN 03/02- multifactorial cause of hypotension DS pg.1- hypotension of unclear etiology Consult Dr. Kimble pg.3- 84 years old has unclear cause of hypotension Consult pg.2 Dr. Melton- Hypotension probably volume depletion Vital signs: BP 71/56, 60/42, 63/43, 75/47, 110/56 PN pg 2 03/02 differential diagnosis includes infectious process as seen by a rising temp,rigors,hypothyroidism as seen by high TSH and iron def anemia RISK FACTORS 84 years old- H and P pg.1 CHF H and P pg.1 CAD- H and P pg.1 Chronic Atrial fib- H and P pg.1 HTN- H and P pg.1 DM type 2 DS pg 2 03/06 LILLIANA DS pg 2 03/06 CKD stage 2 DS pg 2 03/06 Use of Lasix - Consult pg 3 03/01 Former Smoker - Consult pg 3 03/01 Hypothyroidism DS pg 2 03/06 Anemia DS pg 2 03/06 TREATMENTS: IV Fluids- JAN Stop loop diuretics - Consult pg 6 03/01 Blood transfusion DS pg 2 03/06 Echocardiogram Collected 03/07 Cardiology consult DS pg 1 03/06 ID consult DS pg 1 03/06 Dobutamine 500mg IV MAR 03/02 BP Monitoring- VS (This form is maintained as a part of the permanent medical record) 2014 [employer]. All Rights Reserved [email or web address]
--- NOTE | 2020-03-08 05:43 | PQF ---
DEBORAH VEGA MALIK MD [id number] [id number] CLINICAL DOCUMENTATION CLARIFICATION FORM: POST DISCHARGE Addendum to original discharge summary date: ____ Late entry note date: __ DATE: 03/08/20 ATTN:Bhargav Huston Please exercise your independent, professional judgment in responding to the clarification form. Clinical indicators are provided on the bottom of this form for your review Can you please further clarify the type and acuity of CHF? Please check appropriate box(s): HEART FAILURE: A. TYPE: [ ] Systolic / HFrEF [ ] Diastolic / HFpEF [x ] Combined Systolic / Diastolic B. ACUITY [ ] Acute [x ] Acute on Chronic [ ] Chronic [ ] Other diagnosis [ ] Unable to determine In addition, please specify: Present on Admission (POA): [ x ] Yes [ ] No [ ] Unable to determine For continuity of documentation, please document condition throughout progress notes and discharge summary. Thank You. CLINICAL INDICATORS - SIGNS / SYMPTOMS / LABS H and P pg.1- "Hypotension" Hospitalist PN pg.6- Chronic stage c diastolic heart failure Chest X ray 02/25 pg.1- Small pleural effusion with left basilar atelectasis. Cardiomegaly Laboratory02/28- BNP: 416.0H H and P pg.1- discharged on the after he was hospitalized for CHF exacerbation H and P pg.1- EF of 40-45% H and P pg.3- History of systolic and diastolic dysfunction DS pg.2- acute on chronic systolic/diastolic CHF exacerbation RISKS: 84 years old- H and P pg.1 COPD H and P pg.1 CAD- H and P pg.1 Chronic Atrial fib- H and P pg.1 HTN- H and P pg.1 DM type 2 DS pg 2 03/06 LILLIANA DS pg 2 03/06 CKD stage 2 DS pg 2 03/06 Former Smoker - Consult pg 3 03/01 TREATMENTS: Cardiology Consult Dr. Kimble IV Fluids- MAR Cardiology Consult Dr. Kimble [id number]- MAR Echocardiogram 02/28 Chest X ray 03/01 (This form is maintained as a part of the permanent medical record) 2014 [employer]. All Rights Reserved [email or web address]
[2020-03-08 13:13] LABS: Brucella IgM Ab Negative (Negative)
[2020-03-09 15:02] LABS: Reference Lab Name KARIUS
== END 2020-03-06 15:35 | disposition home health service (06) | DRG 314 ==
LOC: ERS 10:36 → 2SE 12:07 → OBSVTOIN 03-01 15:53 → 2NO 03-01 18:10
PROVIDERS: ADMIT Internal Medicine; ATTEND Internal Medicine
PROC: 4B02XSZ Measurement of Cardiac Pacemaker, External Approach (ICD-10-PCS; principal; 2020-03-01)
PROC: 30233N1 Transfusion of Nonautologous Red Blood Cells into Peripheral Vein, Percutaneous Approach (ICD-10-PCS; 2020-03-01)
DX: I95.9 Hypotension, unspecified (principal); I50.43 Acute on chronic combined systolic (congestive) and diastolic (congestive) heart failure; I48.20 Chronic atrial fibrillation, unspecified; I13.0 Hypertensive heart and chronic kidney disease with heart failure and stage 1 through stage 4 chronic kidney disease, or unspecified chronic kidney disease; N17.9 Acute kidney failure, unspecified; Z66 Do not resuscitate; I08.3 Combined rheumatic disorders of mitral, aortic and tricuspid valves; Z20.828 Contact with and (suspected) exposure to other viral communicable diseases; I25.10 Atherosclerotic heart disease of native coronary artery without angina pectoris; N40.0 Benign prostatic hyperplasia without lower urinary tract symptoms; J44.9 Chronic obstructive pulmonary disease, unspecified; F41.9 Anxiety disorder, unspecified; F32.9 Major depressive disorder, single episode, unspecified; M06.9 Rheumatoid arthritis, unspecified; K21.9 Gastro-esophageal reflux disease without esophagitis; K27.9 Peptic ulcer, site unspecified, unspecified as acute or chronic, without hemorrhage or perforation; M17.12 Unilateral primary osteoarthritis, left knee; N18.2 Chronic kidney disease, stage 2 (mild); E03.9 Hypothyroidism, unspecified; E11.22 Type 2 diabetes mellitus with diabetic chronic kidney disease; I37.2 Nonrheumatic pulmonary valve stenosis with insufficiency; I25.5 Ischemic cardiomyopathy; D63.1 Anemia in chronic kidney disease; E11.618 Type 2 diabetes mellitus with other diabetic arthropathy; D50.9 Iron deficiency anemia, unspecified; M10.09 Idiopathic gout, multiple sites; Z95.810 Presence of automatic (implantable) cardiac defibrillator; Z95.1 Presence of aortocoronary bypass graft; Z90.49 Acquired absence of other specified parts of digestive tract; Z87.891 Personal history of nicotine dependence; Z79.01 Long term (current) use of anticoagulants; Z79.82 Long term (current) use of aspirin; Z79.51 Long term (current) use of inhaled steroids; Z79.4 Long term (current) use of insulin; Z79.899 Other long term (current) drug therapy
CPT/HCPCS: 36415; 36416; 36430; 51701; 70450; 71045; 71250; 72131; 80048; 80053; 80400; 81003; 82274; 82550; 82553; 82728; 83540; 83550; 83605; 83690; 83735; 83880; 84145; 84439; 84443; 84481; 84484; 85007; 85025; 85027; 85046; 85060; 86140; 86611; 86622; 86850; 86900; 86901; 87040; 87086; 87103; 87207; 93005; 93306; 93798; 94640; 96360; J0696; J0834; J1250; J1815; J1940; J3370; J3490; J7050; J7620; P9016; Q0163

== ENCOUNTER 2020-04-22 11:17 | Inpatient (IN) | payer MEDICARE, OTHER ==
[~2020-04-22 11:17] MED LIST changes: +Iopamidol-370 76% 500 ML 1 ML ONE
[2020-04-22] MEDS ORDERED: methylPREDNISolone Sod Succ/PF 125 MG/2 ML VIAL ONE (11:41)
[2020-04-22] MEDS ORDERED: Famotidine/PF 20 mg/2ml Vial ONE (11:41)
[2020-04-22] MEDS ORDERED: diphenhydrAMINE 50 MG/ML VIAL ONE (11:41)
--- NOTE | 2020-04-22 12:13 | RAD ---
XR Chest 1 View Portable History: Chest pain. Comparison: Radiograph March 01, 2020 Findings: Heart size continues to be enlarged. Multiple midline sternotomy wires. Continued elevation left hemidiaphragm. Mild pulmonary venous congestion. Dense calcific ages of the aorta. Cardiac device is similar. Impression: Similar examination of the chest. Cardiomegaly and mild pulmonary venous congestion.
[2020-04-22 12:15] LABS: Hemoglobin 10.3 g/dL (14.0-18.0); Mean Corpuscular HGB CONC 31.7 g/dL (32.0-36.0); Mean Corpuscular Hemoglobin 28.6 pg (27.0-31.0); Mean Corpuscular Volume 90.2 fL (78.0-98.0); Mean Platelet Volume 7.8 fL (7.4-10.4); Platelet Count 290 thou/uL (130-400); RBC Distribution Width 17.4 % (11.5-14.5); Red Blood Cell (RBC) Count 3.62 mill/uL (4.70-6.10)
[2020-04-22 12:33] LABS: ALT (SGPT) 14 U/L (8-55); AST (SGOT) 16 U/L (5-34); Albumin 3.3 g/dL (3.4-4.8); Alkaline Phosphatase 65 U/L (40-110); Anion Gap 14 mmol/L (10-20); BUN (Urea Nitrogen) 54 mg/dL (8.4-25.7); Bilirubin, Total 0.3 mg/dL (0.2-1.2); Calc. Creatinine Clearance 0 mL/min (70-130); Calcium 8.3 mg/dL (7.8-10.44); Carbon Dioxide 20 mmol/L (23-31); Chloride 106 mmol/L (98-107); Estimated GFR-MDRD 30; Globulin 2.7 g/dL (2.4-3.5); Glucose 161 mg/dL (83-110); Lipase 44 U/L (8-78); Potassium 5.2 mmol/L (3.5-5.1); Sodium 135 mmol/L (136-145)
--- NOTE | 2020-04-22 12:34 | CT ---
CT ABDOMEN AND PELVIS WITH IV CONTRAST 04/22/2020 CLINICAL INFORMATION: Hypotension and vomiting. Fever COMPARISON: 03/03/[address] abdomen and pelvis on 06/25/2019 Technique: Multiple contiguous axial CT images are obtained through the abdomen and pelvis with IV contrast. Cor onal reformatted images are provided. FINDINGS: Lower Chest: The heart is enlarged. AICD leads are seen in the right atrial appendage and right ventr icle. Vascular calcifications are seen in the coronary arteries as well as involving the thoracic aorta. Increased interstitial and linear densities are seen in each lung base likely due to atelectas is and scarring. Vessels: Vascular calcifications are seen in the abdominal aorta and iliac arteries. There is mild an eurysmal dilatation of each common iliac artery measuring 2.1 cm on the right and 2 cm on the left. Abdomen: Portal vein:Patent Gallbladder: Surgically absent. Pneumobilia is again seen. Liver: Subcentimeter too small to characterize hypodense lesion is seen in the lateral segment left h epatic lobe also seen on prior study Spleen: within normal limits. Pancreas: within normal limits. Adrenals: within normal limits. Kidneys: Nonobstructing left renal calculi are again seen. No hydronephrosis is seen bilaterally, no enhancing renal mass is seen. A subcentimeter too small to characterize hypodense lesion is again seen in the inferior pole left kidney. Bowel: A few scattered colonic diverticula are seen. Loops of small bowel are normal in caliber. Appendix: Not visualized, but no secondary signs to suggest appendicitis are seen. Peritoneum: No ascites or free air; no fluid collection. Mesentery and Retroperitoneum: No enlarged mesenteric or retroperitoneal lymph nodes. Abdominal Wall: within normal limits. Pelvis: Reproductive Organs: No pelvic masses. Pelvis within normal limits. Bladder: within normal limits. Bones: Multilevel degenerative changes are again seen in the spine. Bilateral hip osteoarthritis is p resent. IMPRESSION: 1. No acute findings in the abdomen or pelvis. 2. Stable subcentimeter hypodense lesion lateral segment left hepatic lobe. 3. Postcholecystectomy changes with evidence of pneumobilia. 4. Nonobstructing left renal calculi. 5. Stable ectasia of the infrarenal abdominal aorta. 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
[2020-04-22 12:41] LABS: Anisocytosis SLIGHT = 6-15 cells (100X) (0-5/hpf); Band 41 % (5-11); Hypochromia SLIGHT = 6-15 cells (100X) (0-5/hpf); Lymphocytes 2 % (21-51); MDiff Complete? YES; Monocytes 7 % (0-10); Neutrophil 49 % (42-75); Platelet Morphology Comment Appears Adequate; Polychromasia SLIGHT = 2-3 cells (100X) (0-2/hpf); Reactive Lymphocytes 1 % (0-10)
[2020-04-22] MEDS ORDERED: Cefepime 2 GM VIAL ONE (13:02)
[2020-04-22 13:17] LABS: Bilirubin Negative (Negative); Blood, Urine Negative (Negative); Clarity Clear (Clear); Glucose, Urine (Dipstick) Normal (Negative); Leukocyte Negative Leu/uL (Negative); Nitrite Negative (Negative); Protein, Urine (Dipstick) 20 mg/dL (Neg-Trace); Urobilinogen Normal mg/dL (Less than 2)
[2020-04-22] MEDS ORDERED: Norepinephrine 8 MG/0.9% NS 250 ML ONE (13:17)
[2020-04-22] MEDS ORDERED: Dextrose 50% Abboject 50 ML SYRINGE SLOW IVP PRN (13:53)
[2020-04-22] MEDS ORDERED: Dextrose 5% in Water 1,000 ML IV PRN (13:53)
[2020-04-22] MEDS ORDERED: Norepinephrine 8 MG/0.9% NS 250 ML IVPB SCH (14:00)
[2020-04-22] MEDS ORDERED: Meropenem 1 GM in Sodium Chloride 0.9% 100 ML IVPB SCH (14:00)
[2020-04-22] MEDS ORDERED: DOBUTamine 500 mg/250 ml 250 ML IVPB SCH (14:00)
[2020-04-22] MEDS ORDERED: Vancomycin 1 GM/200 ML BAG ONE (14:03)
[2020-04-22] MEDS ORDERED: DOBUTamine 500 mg/250 ml 250 ML ONE (14:05)
--- NOTE | 2020-04-22 14:05 | RAD ---
EXAM: Single view of the chest HISTORY: Hypotension and fever COMPARISON: 04/22/2020 FINDINGS: Single view of the chest shows an enlarged but stable cardiomediastinal silhouette. The pa tient is status post sternotomy. The pacemaker is unchanged in position. A right IJ central venous catheter seen with its tip in superior vena cava. There is no evidence of consolidation, mass, or pl eural effusion. The bones are unremarkable. IMPRESSION: No evidence of acute cardiopulmonary disease
[2020-04-22 15:58] LABS: Troponin I 0.044 ng/mL (< 0.028)
[2020-04-22] MEDS ORDERED: HumaLOG 300 UNITS/3 ML VIAL ONE (17:45)
[2020-04-22] MEDS: HumaLOG 300 UNITS/3 ML VIAL SC PRN ×2 (17:57→22:14)
[2020-04-22 19:02] LABS: Troponin I 0.039 ng/mL (< 0.028)
[2020-04-22] MEDS ORDERED: Potassium Phosphate 15 MMOL in Sodium Chloride 0.9% 250 ML 250 ML IV PRN (20:45)
[2020-04-22] MEDS ORDERED: Potassium Chloride 40 MEQ in Premix Bag 1 BAG IVPB PRN (20:45)
[2020-04-22] MEDS ORDERED: Potassium Phosphate 12 MMOL in Sodium Chloride 0.9% 250 ML 250 ML IV PRN (20:45)
[2020-04-22] MEDS ORDERED: Potassium Phosphate 9 MMOL in Sodium Chloride 0.9% 100 ML IVPB PRN (20:45)
[2020-04-22] MEDS ORDERED: ELECTROLYTE REPLACEMENT PROTOCOL FS PRN (20:45)
[2020-04-22] MEDS ORDERED: PHOS-NAK 1 PKT PACK PO PRN ×2 (20:45)
[2020-04-22] MEDS ORDERED: Potassium Chloride 40 MEQ in Sodium Chloride 0.9% 250 ML 250 ML IVPB PRN (20:45)
[2020-04-22] MEDS ORDERED: Potassium Chloride 20 MEQ TAB PO PRN (20:45)
[2020-04-22] MEDS ORDERED: Magnesium 2 GM/50 ML 2 GM in Premix Bag 1 BAG IVPB PRN (20:45)
[2020-04-22] MEDS ORDERED: Magnesium Oxide 400 MG TAB PO PRN ×2 (20:45)
[2020-04-22] MEDS ORDERED: Apixaban 2.5 MG TAB PO SCH (21:00)
[2020-04-22] MEDS ORDERED: Vasopressin 40 UNIT, Admixture Fee 1 EACH in Sodium Chloride 0.9% 100 ML IV SCH (21:00)
--- NOTE | 2020-04-22 21:32 | HP ---
CHIEF COMPLAINT: Altered mental status. HISTORY OF PRESENT ILLNESS: The patient is an 85-year-old male with past medical history of heart failure with EF of 40% to 45%, mitral regurgitation, aortic stenosis and regurgitation, ventricular tachycardia, type 2 diabetes mellitus, hypothyroidism, coronary artery disease, gout, hypertension, and chronic kidney disease, who presented to the hospital after he was found to be confused yesterday. The family also reported fever in addition to nausea and vomiting. The patient was admitted to the hospital multiple times before for hypotension and possible sepsis. He was brought to the ER, where his initial workup revealed the patient to be in a state of shock and his laboratory studies revealed elevated WBC count suggesting possible sepsis. Chest x-ray, abdominal CT, and UA were all unremarkable. No skin rash was noted on this patient. He was referred to the hospitalist team for further evaluation of septic shock, unclear etiology. REVIEW OF SYSTEMS: The patient is currently alert and oriented and denies any complaints other than what was mentioned in the HPI. PAST MEDICAL HISTORY: As noted above in addition to COPD, BPH, chronic back pain, anxiety, rheumatoid arthritis, atrial fibrillation, on anticoagulation. PAST SURGICAL HISTORY: Appendectomy, cholecystectomy, AICD placement, and CABG. SOCIAL HISTORY: The patient is a former smoker, denies alcohol or illicit drug use. PHYSICAL EXAMINATION: GENERAL: The patient is alert and oriented. HEENT: Head is normocephalic and atraumatic. NECK: Supple. CHEST: Clear to auscultation bilaterally with diminished breath sounds at the bases. CARDIOVASCULAR: Revealed normal S1 and S2 with systolic murmur of maximal intensity at the left lower sternal border. ABDOMEN: Soft with mild tenderness at the lower abdomen. Bowel sounds are normal. NEUROLOGIC: Unremarkable and extremities did not show any significant edema. ASSESSMENT: 1. Septic shock. 2. Sepsis of unclear etiology with differential diagnosis including infective endocarditis. 3. Coronary artery disease. 4. Chronic obstructive pulmonary disease. 5. Hypertension. 6. Diabetes mellitus type 2. 7. Heart failure with ejection fraction of 40% to 45%. The patient will be admitted to the intensive care unit. IV dobutamine and norepinephrine initiated and will be titrated to achieve mean arterial pressure of greater than 65. The patient will be started on IV vancomycin and meropenem with pharmacy to dose. Hold his antihypertensive medications. Repeat echocardiogram to look for vegetations. Monitor his creatinine level. Follow blood cultures and urine culture results. ID and Cardiology were consulted. Forty minutes of critical care time was used to manage and evaluate this patient. Job ID: [id number]
[2020-04-22] MEDS: MEROPENEM 1 GM/50 ML 1 GM in Premix Bag 1 BAG IVPB SCH (22:10)
[2020-04-22] MEDS: Apixaban 2.5 MG TAB PO SCH (22:11)
[2020-04-22] MEDS: Gabapentin 300 MG CAP PO SCH (22:11)
[2020-04-23 05:11] LABS: ALT (SGPT) 30 U/L (8-55); AST (SGOT) 28 U/L (5-34); Albumin 3.4 g/dL (3.4-4.8); Alkaline Phosphatase 66 U/L (40-110); Anion Gap 13 mmol/L (10-20); BUN (Urea Nitrogen) 49 mg/dL (8.4-25.7); Bilirubin, Total 0.2 mg/dL (0.2-1.2); Calc. Creatinine Clearance 37 mL/min (70-130); Calcium 9.1 mg/dL (7.8-10.44); Carbon Dioxide 21 mmol/L (23-31); Chloride 109 mmol/L (98-107); Estimated GFR-MDRD 38; Globulin 3.4 g/dL (2.4-3.5); Glucose 259 mg/dL (83-110); Potassium 4.8 mmol/L (3.5-5.1); Protein, Total 6.8 g/dL (5.8-8.1); Sodium 138 mmol/L (136-145)
[2020-04-23 05:54] LABS: Anisocytosis SLIGHT = 6-15 cells (100X) (0-5/hpf); Band 18 % (5-11); Hemoglobin 9.9 g/dL (14.0-18.0); Hypochromia SLIGHT = 6-15 cells (100X) (0-5/hpf); Lymphocytes 8 % (21-51); MDiff Complete? YES; Mean Corpuscular HGB CONC 30.7 g/dL (32.0-36.0); Mean Corpuscular Hemoglobin 27.6 pg (27.0-31.0); Mean Corpuscular Volume 89.9 fL (78.0-98.0); Mean Platelet Volume 8.3 fL (7.4-10.4); Monocytes 2 % (0-10); Neutrophil 72 % (42-75); Platelet Count 293 thou/uL (130-400); Platelet Morphology Comment Appears Adequate; Polychromasia SLIGHT = 2-3 cells (100X) (0-2/hpf); RBC Distribution Width 17.1 % (11.5-14.5); Red Blood Cell (RBC) Count 3.59 mill/uL (4.70-6.10); White Blood Cell (WBC) Count 14.8 thou/uL (4.8-10.8)
--- NOTE | 2020-04-23 05:57 | CON ---
DATE OF CONSULTATION: 04/22/2020 This is [facility] Cardiology Consulting Service. REASON FOR CONSULTATION: Management of septic shock with patient of known history of heart failure HISTORY OF PRESENT ILLNESS: Mr. Donny Rogers is an 85-year-old gentleman with known history of recovering heart failure with reduced ejection fraction, presented with septic shock. [place] His live-in girlfriend for many years was hand bottle-feeding baby goats with salmonella infection . She has been doing this for 2 to 3 weeks now. Last Saturday, Mr. Donny Rogers developed fever up to about 100.5 overnight. He was given Tylenol and then he was better after this and no more fever after 2 days. He seemed to be doing well this week. He was able to ambulate, participate with physical therapy with systolic blood pressure about 109 and heart rate paced at 80. He then developed abdominal pain, nausea, and vomiting sometime after dinner last night. The day before, they purchased pork from a local shop. He ate left over pork for lunch. At dinner time, he ate home grown green beans along with eggs. They ate dinner around 5:30 to 6:00. Around 9 p.m. or later, he developed right upper quadrant abdominal pain, right-sided pain and mid epigastric pain, then he had severe nausea and vomiting. He cannot hold anything down. Then, he developed temperature up to 100.9. His daughter and his live-in girlfriend put him to bed. They gave him Tylenol several times. They said his systolic blood pressure was maintained above 100. Mr. Donny Rogers said that he was able to drink water. Overnight, he felt very weak when he got up trying to go to the bathroom and fell twice. This morning about 8 a.m., he did not feel good. His daughter and his live-in girlfriend said he was confused. They measured his blood pressure about 70/50 and they repeated several times, he never got above 75/50 or so. Then, EMS was called. He was transported to ER at [facility]. He received IV fluids 1.5 L. Despite volume resuscitation, his systolic blood pressure remained in the high 70s. Consequently, norepinephrine was started and titrated up to 3 mcg/minute and also dobutamine was started at 2.5 mcg/kg, this combination brought his blood pressure above 100 mmHg. After that, he woke up and was able to converse. He denied exposure to people who are ill. He denied fever with productive cough until last night. However, there was one bout of fever last Saturday. All this took place in the setting of his live-in girlfriend hand bottle-feeding baby goats that have salmonella infection. PAST MEDICAL HISTORY: 1. COPD. 2. Coronary artery disease, post bypass. 3. Heart failure with reduced ejection fraction with recovering ejection fraction, with ejection fraction increased to 50% as of June 2019. However, his EF went down to 40% with pneumonia sepsis during the hospitalization in January 2020. He had another hospitalization due to his sepsis. The EF ranged around 40% to 45%. 4. Rheumatoid arthritis, on multiple immunosuppressants at different times. PAST SURGICAL HISTORY: 1. Appendectomy. 2. Coronary artery bypass. 3. Cholecystectomy. 4. He has AIRCRAFT SYSTEMS TECHNICIAN-D implanted. FAMILY HISTORY: Being aged 85, it is currently noncontributory. SOCIAL HISTORY: 1. He is a former smoker, quit in 1985. 2. He denies frequent alcohol use, however, he does drink socially during events , maybe about once per month. 3. He denies illicit drug use. 4. He lives with the live-in girlfriend, her name is Radha Steele. Although they are not , they have been living together for many years. 5. His daughter comes by and checks on him several times a week and is a good historian, who will provide good information. 6. 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 ALLERGIES AND SENSITIVITIES: 1. Iodine causes edema and hives. 2. Penicillin causes edema and hives. MEDICATIONS: It is unclear what exactly his home regimen of medication is. I believe is the followin. Allopurinol 100 mg b.i.d. 2. Amiodarone 200 mg daily, this is necessary because he has history of ventricular tachycardia. 3. Eliquis 2.5 mg p.o. b.i.d., this is necessary because he has atrial fibrillation, that is paroxysmal. He currently does not have atrial fibrillation. 4. Aspirin 81 mg daily. 5. Carvedilol 6.25 mg p.o. b.i.d. 6. Spironolactone 25 mg p.o. daily. 7. Torsemide 20 mg every other day. 8. Synthroid 25 mcg daily. These are as far as I know his cardiac medications. REVIEW OF SYSTEMS: GENERAL: Please see HPI. HEENT: There is no change in vision, hearing, or swallowing. PULMONARY: He is not short of breath. Breathing well. CARDIAC: There is no chest pain or palpitations. He did fall, but that was due to most likely septic shock. GI: Please see HPI. : He still can urinate. MUSCULOSKELETAL: He has chronic back pain. He also complained of lower back pain right now, this has been ongoing for many years. He also has a sore spot in the back. INTEGUMENT: He does have a sore spot near the sacrum. NEUROLOGIC: There are no focal weaknesses or deficits. However, he does have diffuse paresthesias and pain due to diabetic neuropathy. PSYCH: He is not depressed. PHYSICAL EXAMINATION: VITAL SIGNS: His heart rate paced at 80, blood pressure 107/64, his oxygen saturation 100% on 2 L of oxygen. GENERAL: The patient is alert and conversational. He now can make clear sentences and he expresses thoughts. HEENT: Shows EOMI. Oropharynx did not show gross infectious process. There is moist mucosa. NECK: JVP is about 10 cm. PULMONARY: There is good air movement bilaterally. There are slight crackles at the left base. CARDIAC: He has a regular rate and rhythm, paced at 80 beats per minute. There is 2/6 diastolic murmur at the right sternal border corresponding to aortic regurgitation. He also has 3/6 holosystolic murmur at the apex with radiation to the left axilla corresponding to mitral regurgitation. ABDOMEN: Soft, but then he has a tender spot at the mid epigastric and also has a right upper quadrant discomfort. His abdomen is mildly distended. EXTREMITIES: His lower extremities are without edema. There are positive dorsalis pedis pulses bilaterally. PROCEDURE: His AIRCRAFT SYSTEMS TECHNICIAN-D device was interrogated and reprogrammed for this situation. It is a [employer] device model Viva Quad AIRCRAFT SYSTEMS TECHNICIAN-D ZOCS1TM with serial #[id number]. 1. Lower rate limit set at 80 beats per minute with BiV pacing. 2. It is A-paced and V-paced about 96% to 97% of time. 3. There is no atrial fibrillation. 4. There is no ventricular tachycardia. There is also no ventricular fibrillation. 5. Right before admission, his thoracic impedance has been increasing, it is actually about 70, so this correspond to no edema, so consequently, he was not wet, he was not decompensating right before this infectious event. Reprogramming: Due to septic shock situation, his lower rate limit was increased to 85 beats per minute, that gave him about a 10-point gain in systolic blood pressure. He feels fine with this setting. Ventricular rate stabilization was also turned on. If he has PVCs, the pacemaker now will try to over-pace and suppress it. This is used to suppress potential ventricular tachycardia. He has a history of ventricular tachycardia. LABORATORY DATA: White cell count 24,000, hemoglobin is 10.3, hematocrit at 32.6, and platelets at 290. His chemistry shows sodium 135, potassium 5.2, bicarb of 20, BUN is 54, creatinine is 2.13. His lactic acid is 1.9. His initial troponin-I was 0.056. The second troponin has decreased down to 0.044. His albumin is 3.3. ASSESSMENT: 85-year-old gentleman, has septic shock. Fever, nausea, vomiting, abdominal pain, WBC count 24,000 and systolic blood pressure in the 70s combined to show this. However, it is not clear what is the infection source. There is some chance of being salmonella due to his essentially hand bottle-feeding the salmonella infected goats. This could have contaminated the foods they were eating. Then, it took one day or so for the small inoculant to grow to enough sufficient number to trigger this. On the other hand, this is his third admission for septic shock. There is some chance that he could have a longstanding endocarditis, so it does need to be explored. He does have goats at home. He still has a cat at home. So, those prior thoughts of Q fever and Bartonella henselae may still exist. However, at this point, his pattern does not fit COVID-19. He did not have pulmonary symptoms. There is a very quick onset of nausea, vomiting, pain, and shock. This is most likely gastrointestinal related infection. For now, please do use inotropic to support, and once he is out of shock situation, then we can titrate off his inotropic support. Please see the following for my recommendations. RECOMMENDATIONS: 1. Agree with norepinephrine. It is currently at 3 mcg/kg/minute. 2. Please do use dobutamine to augment because his heart needs to produce sufficient stroke volume. Please feel free to titrate this from 2.5 mcg/kg and higher. Please keep it under 10 mcg/kg/minute. 3. If his systolic blood pressure is well maintained above 100, please do titrate off inotrope. Please titrate off norepinephrine first. You can leave dobutamine on for a long time. 4. The patient has history of ventricular tachycardia when he loses potassium or has low magnesium. Please supplement his potassium to make sure it stays above 4 and please do supplement his magnesium to make sure it is above 2. 5. Due to shock situation, there is no reason to give any diuretics right now. 6. He had an abdominal CT that was done with contrast. 7. Please do a transthoracic echocardiogram to look for vegetations on the valves and also the pacemaker leads. 8. If the blood culture comes positive, then we will need to pursue transesophageal echocardiogram to look for endocarditis if he is stable and there is no other source found. 9. I will follow the patient and help with titration of inotropic drips. It has been a pleasure taking care of Mr. Donny Rogers. If you have any questions, please give me a call. The critical care time is 90 minutes Job ID: [id number] [id number]
[2020-04-23] MEDS: Levothyroxine Sodium 25 MCG TAB PO SCH (06:07)
[2020-04-23] MEDS: MEROPENEM 1 GM/50 ML 1 GM in Premix Bag 1 BAG IVPB SCH ×3 (06:07→20:58)
[2020-04-23] MEDS: HumaLOG 300 UNITS/3 ML VIAL SC PRN ×4 (06:14→20:58)
[2020-04-23] MEDS ORDERED: Prevnar 13-Val Conj/PF 0.5 ML SYRINGE IM ONE (09:00)
[2020-04-23] MEDS ORDERED: Amiodarone 200 MG TAB PO SCH (09:00)
[2020-04-23] MEDS: Ferrous Sulfate 325 MG TAB PO SCH (09:41)
[2020-04-23] MEDS: Amiodarone 200 MG TAB PO SCH (09:41)
[2020-04-23] MEDS: Aspirin Chewable 81 MG TAB PO SCH (09:41)
[2020-04-23] MEDS: Gabapentin 300 MG CAP PO SCH ×2 (09:42→20:58)
[2020-04-23] MEDS: Apixaban 2.5 MG TAB PO SCH ×2 (09:56→20:58)
[2020-04-23] MEDS ORDERED: Furosemide 40 MG/4 ML VIAL SLOW IVP SCH (11:45)
[2020-04-23] MEDS ORDERED: Vancomycin 1 GM in Premix Bag 1 BAG IVPB SCH (14:00)
--- NOTE | 2020-04-23 17:17 | CON ---
DATE OF CONSULTATION: 04/23/2020 CONSULTING PHYSICIAN: Janelleist . REASON FOR CONSULTATION: ICU management. HISTORY OF PRESENT ILLNESS: The patient is an 85-year-old originally from [facility] who comes in with confusion, nausea and vomiting. Workup showed him to have pneumobilia. He had an elevated white count. He required some Levophed, has been weaned off. He is on dobutamine drip. Says he feels better today. PAST MEDICAL HISTORY: 1. Chronic obstructive pulmonary disease. 2. Prostatic hypertrophy. 3. Chronic back pain. 4. Rheumatoid arthritis. 5. Atrial fibrillation. 6. Anticoagulation. PAST SURGICAL HISTORY: 1. Appendectomy. 2. Cholecystectomy. 3. AICD placement. 4. CABG. SOCIAL HISTORY: Quit smoking many years ago. Does not consume alcohol. REVIEW OF SYSTEMS: Remarkable for nausea, vomiting. PHYSICAL EXAMINATION: VITAL SIGNS: Temperature 97.7, pulse 84, blood pressure 108/60, O2 saturation 96%. He is currently on dobutamine drip at 2.5 mcg/kg per minute. HEENT: Unremarkable. NECK: No adenopathy or JVD. CHEST: Old midline sternotomy scar. He has a pacemaker present at left upper quadrant. LUNGS: Clear. ABDOMEN: Soft, slightly tender to palpation in epigastric region. EXTREMITIES: No clubbing, cyanosis, or edema. NEUROLOGIC: Nonfocal. LABORATORY DATA: Sodium 130, potassium 4.8, chloride 109, CO2 of 21, BUN 49, creatinine 1.7, and glucose 259. Procalcitonin level was 2.1. White blood cell count 14.8, hematocrit 32.3, and platelet count 293. Chest x-ray shows no mass, effusion, or infiltrate. ASSESSMENT: 1. Septic shock versus transient hypotension due to other reasons. 2. Low ejection fraction. PLAN: I really think adrenal insufficiency needs to be considered. His medication history going back to February does not show any use of IV steroids while in the hospital, but given his history of rheumatoid arthritis, I suspect he has been given steroid shots and perhaps may have been on steroids as an outpatient. Septic shock and renal insufficiency can look identical in presentation. I agree the patient is stable for transfer to the [facility]. Job ID: [id number]
--- NOTE | 2020-04-23 17:31 | CON ---
DATE OF CONSULTATION: 04/23/2020 REASON FOR CONSULTATION: Sepsis and bacteremia. HISTORY OF PRESENT ILLNESS: An 85-year-old with history of ischemic cardiomyopathy, coronary artery disease, an AICD implant with a biventricular device, as well as rheumatoid arthritis, previously on Humira, with multiple recent admissions for management of complications secondary to his cardiomyopathy. In January, the patient developed fever, hypotension, and change in mental state, hallucinations with a temperature 101.4, abnormal lung examination, and moderate leukocytosis. Possibility of superimposed pneumonia was considered plus COPD. He did have ground-glass opacity changes. The COVID was negative and autoimmune panel was negative. Opportunistic pathogen panel was negative as well. After discharge, the patient continued on his amiodarone, Eliquis, Dexilant, Ivana, Zoloft, potassium, allopurinol, Coreg, Dulera, and spironolactone. The day before admission, he developed hypotension and weakness. No fever. The initial impression was polyarticular gout, associated with low-grade temperature elevation, and ischemic cardiomyopathy. We added brucellosis and Coxiella burnetii testing as well as Karius, which is a next generation sequencing test, which did not identify any organisms in the plasma sample submitted. This time, he presented with a new onset of vomiting and hypotension, fairly acute onset the day before admission. The systolics were in the 70s and a temperature was 100.9. He also had pain in the epigastric area, which he rated 5/10. Initial findings included a sodium 135 and creatinine 2.13. Liver profile was normal. Albumin 3.3. Procalcitonin 2.10. Now, we have 1 set of blood cultures out of 2 with presumptive E coli retrieved. Mr. Tiwari is in the ICU. He is awake and alert, pleasant, oriented, does not appear in distress. He denies headaches. No visual symptoms, sore throat, odynophagia, or dysphagia. No dyspnea. No cough. No back pain other than his chronic back pain and his chronic left shoulder pain. He does have this persistent epigastric pain, which is reproducible as noted in the physical examination below. He denies any urinary symptoms. He has chronic joint symptoms in the knees from his rheumatoid arthritis. PAST MEDICAL HISTORY: Includes: 1. Ischemic cardiomyopathy. 2. Bypass graft surgery. 3. AICD placement. 4. COPD. 5. Rheumatoid arthritis, previously on Humira. 6. Gastric ulcers. 7. Cholecystectomy with biliary duct stones, pigmented. 8. Sphincterotomy. 9. Enterobacter aerogenes bacteremia in 2015, presumably secondary to cholangitis. 10. Pneumonia. 11. Gout. ALLERGIES: IODINE, PENICILLIN, STATINS, AND CONTRAST MEDIA. FAMILY HISTORY: Noncontributory. SOCIAL HISTORY: He is originally from [facility]. He is and never smoker. PHYSICAL EXAMINATION: VITAL SIGNS: T-max 98, blood pressure 130/70, pulse 84, respirations 14 to 20, and O2 saturation 99. SKIN: The patient has a peripheral IV access. He is voiding in the urinal. No lymphadenopathy. HEENT: Ocular movements conjugate. Oral cavity is not remarkable. NECK: Supple. No jugular vein distention. Crepitus in the left shoulder with range of motion limitation, which is chronic. AICD pocket site appears normal. LUNGS: Symmetric air entry. A few crackles here and there. HEART: S1 and S2 regular rate. The patient has a short systolic murmur at the pulmonic area. ABDOMEN: Tender in the epigastric region. I would say quite tender to palpation and percussion. No masses are palpable and specifically no organomegaly. No ascites. No bladder distention. No genital abnormalities. EXTREMITIES: Osteoarthrosis in knees and ankles. No edema. Pulses 1+ in dorsalis pedis. Moves extremities equally. NEUROLOGIC: He is awake, oriented, follows commands. Speech is normal. LABORATORY DATA: The latest labs show sodium 138 and creatinine 1.71. The liver profile has remained normal. Albumin 3.4. WBC count is down from 24 to 14.8, hemoglobin 9.9, and platelets 293. IMAGING STUDIES: There is a chest x-ray with no infiltrates, enlarged heart. Abdomen and pelvis CT with hypodense lesion, subcentimeter left hepatic lobe, post cholecystectomy changes, pneumobilia, ectasia infrarenal abdominal aorta, nonobstructing left renal calculi. ASSESSMENT: 1. Ischemic cardiomyopathy. 2. Chronic obstructive pulmonary disease. 3. Automatic implantable cardioverter-defibrillator in place. 4. Episode of cholangitis in the past due to Enterobacter aerogenes, status post papillotomy. 5. Sphincterotomy. 6. Abdominal pain. 7. Transient Escherichia coli bacteremia. DISCUSSION: The differential diagnosis includes a recurrence of cholangitis with possible presence of pigmented stone recurrence in the bile duct versus pyelonephritis versus an alternate process, such as colonization of the AICD lead. Typically with colonization of the devices, such as the patient's AICD, one would expect continuous bacteremia, which is typically associated with all sets positivity, so we will have to wait for the second set results. If remains negative, then that would be less likely. The interesting finding here is that as noted by Dr. Ragland in 2014 his liver function tests are normal, which made him doubt the diagnosis of cholangitis, but later on in that admission, the liver panel became abnormal, but that was after the sphincterotomy was completed. I still believe that is the more likely scenario that he may not have true obstruction of the biliary flow, but penetration of the biliary duct and colonization by gram-negative rods. In this case, E coli with then bacteremia from there. He may have an early formation of liver abscess, which was not identified or is not clearly identified in the imaging study. I would consider consulting Dr. Ragland to find out about his impression about this patient's bacteremia recurrence and possibility of recurrence of cholangitis even in spite of normal transaminases and bilirubin. I have seen patients with completely normal urinalysis with obvious pyelonephritis, but in this case, there is no imaging changes that would be suggestive of kidney inflammatory process, so I think this is less likely. Job ID: [id number]
[2020-04-23 18:19] LABS: Anion Gap 15 mmol/L (10-20); BUN (Urea Nitrogen) 48 mg/dL (8.4-25.7); Calc. Creatinine Clearance 37 mL/min (70-130); Calcium 9.2 mg/dL (7.8-10.44); Carbon Dioxide 20 mmol/L (23-31); Chloride 107 mmol/L (98-107); Estimated GFR-MDRD 39; Glucose 222 mg/dL (83-110); Magnesium 2.2 mg/dL (1.6-2.6); Potassium 4.8 mmol/L (3.5-5.1); Sodium 137 mmol/L (136-145)
[2020-04-23] MEDS: Acetaminophen 325 MG TAB PO PRN (20:57)
--- NOTE | 2020-04-23 22:10 | PDOC.HOSPP ---
- Subjective Encounter Date: 04/23/20 Subjective: The patient is alert and oriented today. He has no new complaints. - Objective Vital Signs & Weight: Vital Signs (12 hours) Temp 04/23/20 19:07 98.6 F 04/23/20 12:00 98 F Weight Weight 177 lb 1.6 oz Most Recent Monitor Data Heart Rate from ECG 84 NIBP 143/83 NIBP BP-Mean 103 Respiration from ECG 24 SpO2 96 I&O: 04/22/20 04/23/20 04/24/20 06:59 06:59 06:59 Intake Total 771.0 1100 Output Total 750 1455 Balance 21.0 -355 Result Diagrams: 04/23/20 04:15 04/23/20 17:21 Additional Labs: Accuchecks 04/23/20 04/23/20 04/23/20 19:31 17:10 13:33 POC Glucose 216 H 239 H 317 H 04/23/20 04/22/20 06:16 22:17 POC Glucose 290 H 255 H Hospitalist ROS - Medication Medications: Active Medications Generic Name Dose Route Start Last Admin Trade Name Freq PRN Reason Stop Dose Admin Acetaminophen 650 mg 04/23/20 20:02 04/23/20 20:57 Tylenol PO 650 mg Q6H PRN Administration Headache/Fever or Pain Amiodarone HCl 200 mg 04/23/20 09:00 04/23/20 09:41 Cordarone PO 200 mg DAILY FUNMI Administration Apixaban 2.5 mg 04/22/20 21:00 04/23/20 20:58 Eliquis PO 2.5 mg BID FUNMI Administration Aspirin 81 mg 04/23/20 09:00 04/23/20 09:41 Aspirin Chewable PO 81 mg DAILY FUNMI Administration Ferrous Sulfate 325 mg 04/23/20 08:00 04/23/20 09:41 Feosol PO 325 mg QAM-WM FUNMI Administration Gabapentin 300 mg 04/22/20 21:00 04/23/20 20:58 Neurontin PO 300 mg BID FUNMI Administration Meropenem 1 gm/ Device 50 mls @ 100 mls/hr 04/22/20 22:00 04/23/20 20:58 IVPB 50 mls Q8HR FUNMI Administration Insulin Human Lispro 0 units 04/22/20 13:53 04/23/20 20:58 Humalog SC 4 units .MODERATE SLIDING SC PRN Administration Moderate Correctional Scale Levothyroxine Sodium 25 mcg 04/23/20 06:00 04/23/20 06:07 Synthroid PO 25 mcg 0600 FUNMI Administration Sertraline HCl 25 mg 04/23/20 09:00 04/23/20 09:41 Zoloft PO 25 mg DAILY FUNMI Administration - Exam General Appearance: awake alert ENT: normocephalic atraumatic Neck: supple Heart: RRR Respiratory: normal chest expansion, no tachypnea Gastrointestinal: soft, non-tender, non-distended, normal bowel sounds Hosp A/P (1) Sepsis Code(s): A41.9 - SEPSIS, UNSPECIFIED ORGANISM Status: Resolved (2) CAD (coronary artery disease) Code(s): I25.10 - ATHSCL HEART DISEASE OF [place] CORONARY ARTERY W/O ANG PCTRS Status: Chronic Qualifiers: (3) HTN (hypertension) Code(s): I10 - ESSENTIAL (PRIMARY) HYPERTENSION Status: Chronic Qualifiers: (4) Moderate aortic regurgitation Code(s): I35.1 - NONRHEUMATIC AORTIC (VALVE) INSUFFICIENCY Status: Chronic (5) Rheumatoid arthritis Code(s): M06.9 - RHEUMATOID ARTHRITIS, UNSPECIFIED Status: Chronic Qualifiers: (6) Severe tricuspid regurgitation Code(s): I07.1 - RHEUMATIC TRICUSPID INSUFFICIENCY Status: Chronic (7) Acute metabolic encephalopathy Code(s): G93.41 - METABOLIC ENCEPHALOPATHY Status: Resolved - Plan Septic shock of unclear source. Continue broad-spectrum IV antibiotics. Leukocytosis is improving. Septic shock improved. The patient is on IV dobutamine and diuretics has been initiated. ID suggested that cholangitis could be 1 of the possibilities of causing sepsis in this patient. We will consult GI for their opinion.
[2020-04-24 04:11] LABS: Band 4 % (5-11); Hemoglobin 9.6 g/dL (14.0-18.0); Hypochromia SLIGHT = 6-15 cells (100X) (0-5/hpf); Lymphocytes 6 % (21-51); MDiff Complete? YES; Mean Corpuscular HGB CONC 32.5 g/dL (32.0-36.0); Mean Corpuscular Volume 89.3 fL (78.0-98.0); Monocytes 3 % (0-10); Neutrophil 87 % (42-75); Platelet Count 286 thou/uL (130-400); Platelet Morphology Comment Appears Adequate; RBC Distribution Width 17.1 % (11.5-14.5); Red Blood Cell (RBC) Count 3.31 mill/uL (4.70-6.10); White Blood Cell (WBC) Count 14.2 thou/uL (4.8-10.8)
[2020-04-24 04:31] LABS: ALT (SGPT) 28 U/L (8-55); AST (SGOT) 17 U/L (5-34); Albumin 3.2 g/dL (3.4-4.8); Alkaline Phosphatase 60 U/L (40-110); Anion Gap 12 mmol/L (10-20); BUN (Urea Nitrogen) 48 mg/dL (8.4-25.7); Bilirubin, Total 0.2 mg/dL (0.2-1.2); Calc. Creatinine Clearance 42 mL/min (70-130); Calcium 9.1 mg/dL (7.8-10.44); Carbon Dioxide 24 mmol/L (23-31); Chloride 107 mmol/L (98-107); Estimated GFR-MDRD 45; Globulin 3.2 g/dL (2.4-3.5); Glucose 190 mg/dL (83-110); Magnesium 2.2 mg/dL (1.6-2.6); Potassium 4.9 mmol/L (3.5-5.1); Protein, Total 6.4 g/dL (5.8-8.1); Sodium 138 mmol/L (136-145)
[2020-04-24] MEDS: HumaLOG 300 UNITS/3 ML VIAL SC PRN (06:12)
--- NOTE | 2020-04-24 06:12 | PRG ---
DATE OF SERVICE: 04/23/2020 This is from [facility]. SUBJECTIVE: Mr. Donny Rogers had a good overnight stay. He was able to recover his blood pressure. His blood pressure stayed above 110 while norepinephrine was being titrated off. He seemed to respond well to vancomycin and meropenem. The blood culture came back 11/07 positive for gram-negative rods. He did say that his or live-in girlfriend has been feeding baby goats who had some underlying infection. However, he said his was very careful in cleaning with Lysol so it does not contaminate the house. He did endorse that he ate dinner on night and 3 or 4 hours afterwards he had severe nausea and vomiting. He is still having abdominal muscular pain from all the vomiting. He seemed to be able to eat breakfast this morning. He did not have any nausea or vomiting post eating breakfast this morning. REVIEW OF SYSTEMS: GENERAL: He is feeling stronger today. More alert. HEENT: There is no change in vision, hearing, or swallowing. PULMONARY: He said he is not short of breath. CARDIAC: There is no complaint of palpitation, chest pain, or syncope. GI: Please see HPI. : He can urinate. MUSCULOSKELETAL: He complains of chronic lower back pain, worse on the left thigh. INTEGUMENT: He does not complain any of new skin breakdown, but he has a history of pressure sore in the back. NEUROLOGIC: There is no complaint of new focal deficits or weaknesses. MEDICATIONS: His current cardiac and antibiotic regimen includes; 1. Amiodarone 200 mg daily. 2. Apixaban 2.5 mg twice a day. 3. Aspirin 81 mg daily. 4. Dobutamine currently at 2.5 mcg/kg per minute. 5. Levothyroxine at 25 mcg daily. 6. Magnesium oxide 400 mg twice per day. 7. He is on electrolyte replacement protocol. 8. He is on vancomycin 1 g daily. 9. He is also on meropenem 1 g daily. PHYSICAL EXAMINATION: Telemetry was reviewed. He is mainly paced at 85 beats per minute. There is occasional PVC. There is no ventricular tachycardia seen. VITAL SIGNS: Currently heart rate 85, blood pressure 125/67. GENERAL: He is alert and conversational, much more energetic and much more conversational than last night. However, he does appear short of breath. This is much worse than his baseline. HEENT: EOMI. Oropharynx is benign. NECK: There is a right IJ central line in place, but it seems like JVP is probably higher around 12 to 13 cm. PULMONARY: There is good air movement, however there are crackles on the right base little worse than yesterday. CARDIAC: Regular rate and rhythm with occasional irregularity. There is a 3/6 holosystolic murmur at apex with radiation to the left axilla. There is 2/6 diastolic murmur at the right sternal border. ABDOMEN: Distended, soft, nontender. Positive bowel sounds. EXTREMITIES: Lower extremities are without edema. Positive dorsalis pedis pulses bilaterally. LABORATORY VALUES: His white cell count decreased from 24,000 down to 14,800, hemoglobin is now 9.9, his platelet 293. His chemistry shows sodium 138, potassium 4.8, BUN 49, creatinine 1.71. His blood cultures positive 1/ for gram-negative rods, presumptive E coli, but it could be something else. ASSESSMENT: 85-year-old gentleman is recovering from likely septic shock. Combination of fluid resuscitation, norepinephrine, dobutamine and antibiotic has stabilized the situation. Currently with gram-negative josr is most likely GI source of infection. However, his pacemaker leads and also valve may need to be checked. He does appear to be a little bit more volume overloaded today, and more short of breath, and has crackles, so we will need to give him some diuresis today. However, we will need to maintain his cardiac output to recover his renal function, so his dobutamine needs to be kept on for a while. Please see the following for my recommendations. RECOMMENDATIONS: 1. Keep dobutamine 2.5 mcg/kg per minute. Will need this to recover his renal function. 2. Give him Lasix 40 mg IV one dose. We will need to examine him daily. He probably will not need much diuretics, but for now, he needs one dose. 3. Please do BMP, BNP, magnesium 5:00 p.m. today because he may need electrolyte supplementation. 4. I will leave him paced 85 beats per minute for now. May adjust his rate down later as he gets out of his septic phase. 5. We will defer to Infectious Disease, Dr. Clements to manage his antibiotics. 6. It is hoped that the causative bug is found and then antibiotic treatment is tailored and after that he can transition to oral regimen if possible. 7. We will ask for transthoracic echocardiogram to look at the valves. If there are concerning valvular lesions or if there is still concern for endocarditis, then we will need to proceed on to a transesophageal echocardiogram. It has been a pleasure taking care of Mr. Rogers. If you have any questions, please give me a call. Total critical care time 40 minutes. Job ID: [id number] MTDD
[2020-04-24] MEDS: MEROPENEM 1 GM/50 ML 1 GM in Premix Bag 1 BAG IVPB SCH ×3 (06:13→21:36)
[2020-04-24] MEDS: Levothyroxine Sodium 25 MCG TAB PO SCH (06:13)
[2020-04-24] MEDS: Aspirin Chewable 81 MG TAB PO SCH (09:03)
[2020-04-24] MEDS: Amiodarone 200 MG TAB PO SCH (09:03)
[2020-04-24] MEDS: Gabapentin 300 MG CAP PO SCH ×2 (09:03→21:00)
[2020-04-24] MEDS: Ferrous Sulfate 325 MG TAB PO SCH (09:03)
[2020-04-24] MEDS: Apixaban 2.5 MG TAB PO SCH ×2 (09:10→21:01)
[2020-04-24] MEDS ORDERED: Torsemide 20 MG TAB PO SCH (10:45)
--- NOTE | 2020-04-24 11:33 | PRG ---
DATE OF SERVICE: 04/24/2020 This is from [facility]. SUBJECTIVE: Mr. Donny Rogers is having a good day. He was able to ambulate with a walker without difficulties due to his blood pressure stability. He denies any norepinephrine at all. His dobutamine was stable at 2.5 mcg/kg/minute. Because of that, he was able to transition from the CCU to the IM. At [facility], he was able to maintain blood pressure above 110. However, that was still at the higher pacing rate. He was able to eat. He did not have anymore bouts of fever, nausea, or vomiting. In addition; however, he does complain of some diaphragmatic pain from multiple times of retching. REVIEW OF SYSTEMS: GENERAL: There is no fever, chills, or productive cough. HEENT: There is no change in vision, hearing, or swallowing. PULMONARY: He says he is breathing easy. CARDIAC: There is no palpitation, chest pain, or syncope. GI: There is no nausea or vomiting today or last 24 hours. : He is urinating well, but he thinks he has decreased urine output in comparison to what he has been doing at home. MUSCULOSKELETAL: He has chronic back pain. He did receive a steroid injection recently. INTEGUMENT: There is no new skin breakdown. NEUROLOGIC: There are no new complaints of focal deficits or weaknesses. MEDICATIONS: His medications include; 1. Amiodarone 200 mg daily. 2. Apixaban 2.5 mg b.i.d. 3. Aspirin 81 mg daily. 4. Dobutamine currently at 2.5 mcg/kg/minute. 5. Gabapentin 300 mg b.i.d. 6. He is using lispro insulin. 7. Levothyroxine, which is Synthroid 25 mcg daily. 8. Magnesium oxide as needed. 9. Meropenem 1 g daily. 10. Vancomycin has been dropped off his antibiotics list, he is now with meropenem alone. OBJECTIVE: His telemetry was reviewed. It is paced about 85 beats per minute. He has occasional PVC. There is no ventricular tachycardia. There is no concerning arrhythmia. VITAL SIGNS: Current vitals stable at heart rate 85 and blood pressure 129/77. GENERAL: He is alert, conversational, sitting comfortably in bed after eating breakfast. HEENT: Show EOMI. Oropharynx is benign with moist mucosa. JVP is about 10 or 11 cm. LUNGS: Good air movement in bilateral upper lung akers. There is still bibasilar crackles below, they are less than yesterday. CARDIAC: Regular rate and rhythm with 2/6 holosystolic murmur at the apex and there is also 2/6 diastolic murmur at the right lower sternal border. There is also a 2/6 crescendo-decrescendo murmur at right upper sternal border. So consequently, he has mitral regurgitation, aortic regurgitation, and also aortic stenosis or murmurs. ABDOMEN: A little bit distended, soft, and nontender. Positive bowel sounds. EXTREMITIES: Lower extremity without edema. There are palpable dorsalis pedis pulses. LABORATORY VALUES: White cell count 14.2, hemoglobin 9.6, and platelet count of 286 and his chemistry is sodium 138, potassium 4.9, BUN 48, creatinine 1.49, glucose of 192, and albumin is 3.2. BNP is 342. Microbiology, blood cultures positive for gram-negative rods. It presumes as E. coli, but then could be other because on the test they use will not distinguish between Escherichia, Salmonella, Shigella and other gram negative species and there is no susceptibility testing done yet. ASSESSMENT: 85-year-old gentleman is recovering from gram-negative josr septic shock. His blood pressure has increased some and dobutamine is a low dose. Thus I can now start to decrease his pacing rate since that he is recovering. His renal function has not quite returned to his baseline yet. We will need to continue the inotrope until his renal function returns to baseline and he is back on his home dose of cardiac medication. However, it is still a mystery where does the gram-negative rods coming from. Perhaps today, we should ask for the help of GI library sales consultant along with Infectious Disease. Therefore, he is also mildly volume overloaded, add low-dose diuretics should this suffice. Please see the following for my recommendations. PROCEDURE: His AICD device was interrogated and reprogrammed. It is a [employer] device model [employer]-D [id number] with serial number of [id number]. 1. It is set at DDD mode at 85 beats per minute. 2. It is A-paced and V-paced 99.2% of time. 3. There is no ventricular tachycardia. 4. There is no ventricular fibrillation. 5. There is no atrial fibrillation. 6. His device was reprogrammed. His lower rate limit was decreased down to 80 beats per minute. 7. DDD mode was changed to DDDR mode. 8. This ensures that rate stability is turned on. So if he has PVCs, then his device will automatically pace a little bit faster to suppress the PVCs. This should suppress potential occurrence of PVCs leading to V-Tach RECOMMENDATIONS: 1. Keep dobutamine 2.5 mcg/kg/minute for now. We will titrate down starting tomorrow. 2. Start torsemide 20 mg daily. 3. Start spironolactone at 12.5 mg daily. 4. Please consider consulting GI to find out if there is a gram negative josr. This could be coming from his left upper common bile duct. 5. I will review the echocardiogram to see if there is concerning lesions or vegetations at the heart valve and the AICD lead. It has been a pleasure taking care of Mr. Donny Rogers. If you have any questions, please give me a call. Critical care time is 50 minutes. Job ID: [id number] MTDD
--- NOTE | 2020-04-24 13:37 | PRG ---
DATE OF SERVICE: 04/24/2020 SUBJECTIVE: The patient is actually doing fairly well. Has no acute complaints, except for some midepigastric pain. OBJECTIVE: VITAL SIGNS: Temperature 98.4, pulse 83, blood pressure 148/70, O2 saturation 94%. HEENT: Clear. NECK: No adenopathy or JVD. CHEST: Clear without wheezing. CARDIAC: S1 and S2 regular. ABDOMEN: Soft. Mild tenderness in the midepigastric region to deep palpation. EXTREMITIES: No edema. DIAGNOSTIC DATA: His cultures are growing E. coli from one bottle. White blood cell count 14.2, hematocrit 29.6, and platelet count 286. Sodium 138, potassium 4.9, chloride 107, CO2 of 24, BUN 48, creatinine 1.4, glucose 190. ASSESSMENT: 1. Escherichia coli sepsis-presumably from hepatobiliary source. 2. Underlying cardiomyopathy. PLAN: 1. Antibiotics per Dr. Clements. 2. Heart failure management per Dr. Eastman. Nothing further to add from Pulmonary standpoint at this time available as needed. Job ID: [id number]
--- NOTE | 2020-04-24 20:09 | CON ---
DATE OF CONSULTATION: 04/24/2020 REASON FOR CONSULTATION: Possible hepatobiliary origin of E coli sepsis. CONSULTING PROVIDER: Tammy Ware MD HISTORY OF PRESENT ILLNESS: The patient is an 85-year-old male with past medical history of congestive heart failure (EF of 40% to 45%), mitral regurgitation, atrial fibrillation on anticoagulation, aortic stenosis, ventricular tachycardia, diabetes, hypothyroidism, coronary artery disease, gout, hypertension, benign prostatic hyperplasia, rheumatoid arthritis, chronic kidney disease, and choledocholithiasis (2013), who was initially admitted to the hospital with nausea, vomiting, fever, and altered mental status. On chart review and with conferring with the patient, the patient began having complaints of nausea and vomiting approximately 3 to 4 days ago, that was associated with increased midepigastric abdominal pain. This midepigastric abdominal pain was characterized as a stabbing type sensation, would radiate to the left upper quadrant, was intermittent and reached a severity of 7/10 to 8/10. The pain was worse with vomiting as well as increased pressure to the region/increased intra-abdominal pressure and better with the use of pain medications. Associated symptoms with the nausea, vomiting, and abdominal pain include abdominal bloating and left-sided chest pain. He did take Tylenol in the interim for this particular pain and did have [id number] relief in his symptoms. However, over the next few days, he began to have worsening of this nausea and vomiting in addition to the addition of fever, at which point family found the patient to be confused and was ultimately taken to the hospital for further evaluation. While in the ER, the patient was evaluated and determined to have an elevated white blood cell count, suggesting sepsis and exhibiting mild tachycardia and hypertension consistent with shock. He was subsequently admitted to the hospital on antibiotic therapy, and thus far, has responded well to the current management. Today, he states that he is doing much better, although he does continue to have some mild midepigastric abdominal discomfort. Otherwise, he denies any nausea, vomiting, fevers, chills, hematemesis, melena, hematochezia, or constipation. REVIEW OF SYSTEMS: A 10-category review of systems was obtained with all responses negative except for the pertinent positives as listed in HPI. PAST MEDICAL HISTORY: As per HPI. PAST SURGICAL HISTORY: 1. Appendectomy. 2. Cholecystectomy. 3. AICD placement. 4. CABG. FAMILY HISTORY: Denies any GI malignancies. SOCIAL HISTORY: Denies any tobacco, alcohol, or illicit drug use. OUTPATIENT MEDICATIONS: Reviewed. ALLERGIES: IODINATED CONTRAST, PENICILLIN, STATINS, AND IODINE. PHYSICAL EXAMINATION: VITAL SIGNS: Temperature 98.1, pulse 86, blood pressure 139/79, respiratory rate 24, and saturating 95% on room air. GENERAL: The patient was lying in bed, in no acute distress. Alert and oriented x4. HEENT: Normocephalic and atraumatic. Neck is supple. No JVD or scleral icterus noted. CARDIOVASCULAR: A high-pitched systolic murmur was heard at the right upper sternal border, that was also auscultated in the left lower sternal border, but no other discernable murmurs, gallops, or rubs. RESPIRATORY: Clear to auscultation bilaterally with no discernable wheezes or rales. ABDOMEN: Normoactive bowel sounds. Soft and nondistended. Mild tenderness to palpation in the midepigastric region. EXTREMITIES: No cyanosis, clubbing, or edema. LABORATORY DATA: CBC with a white blood cell count of 14.2, hemoglobin 9.6, hematocrit 29.6, and platelets 286. Chemistry with a sodium of 138, potassium 4.9, chloride 107, CO2 of 24, BUN 48, creatinine 1.49, and glucose 190. AST 17, ALT 28, alkaline phosphatase 60, and total bilirubin 0.2. Blood cultures x4 have been obtained so far with only 1 positive for E coli. His urinalysis was normal. IMAGING DATA: CT of the abdomen and pelvis was obtained on 04/22/2020, which showed severe atherosclerotic disease as well as surgical change consistent with cholecystectomy. Pneumobilia was also noted within the liver, but was unchanged from previous. There was a subcentimeter hypodense lesion seen within the left hepatic lobe, that was also stable. Colonic diverticula without evidence of diverticulitis was seen. Lastly, no enlarged mesenteric or retroperitoneal lymph nodes were noted. On further review of the patient's chart, the patient has had pneumobilia on all of his CT scans since 05/2019. He also underwent an ERCP on 03/03/2015 with choledocholithiasis and underwent sphincterotomy and stone extraction with balloon and baskets. ASSESSMENT AND PLAN: The patient is an 85-year-old male with past medical history of congestive heart failure, mitral regurgitation, aortic stenosis, ventricular tachycardia, atrial fibrillation, on anticoagulation, diabetes, hypothyroidism, coronary artery disease, gout, hypertension, benign prostatic hyperplasia, rheumatoid arthritis, chronic kidney disease, and choledocholithiasis in 2013, presenting with Escherichia coli bacteremia without an obvious pathogen source. 1. Escherichia coli bacteremia: The patient initially presented to the hospital with midepigastric abdominal pain, nausea, vomiting, fever, and altered mental status. On admission, he was noted to be in septic shock with blood cultures obtained on admission being 1 of 2 being positive for Escherichia coli. He was subsequently placed on antibiotic therapy and has been responding well to therapy thus far with significant improvement in his clinical status. At this time, the origin of his Escherichia coli bacteremia is unknown, but does make a GI origin more likely given that Escherichia coli is in a normal part of genevieve within the GI tract. The patient did exhibit some dysuria prior to admission, which could be indicative of a urinary tract infection, in which case that would make this urosepsis. However, the patient also does have pneumobilia on imaging that has been present since at least 05/2019, given the fact that he underwent endoscopic retrograde cholangiopancreatography with sphincterotomy in 2014. This is a known incidental finding, resulting in instrumentation of the biliary tree. At the current time, he does not have any elevation in any of his LFTs nor does he have, a dilated common bile duct or presence of choledocholithiasis on CT (which was noted last time). With the initial blood cultures drawn on the , only 1 of the 2 was positive for Escherichia coli, placing concern for source then as well. At this time with the chronic presence of the pneumobilia, especially with instrumentation from endoscopic retrograde cholangiopancreatography as a common finding that could contribute to this, I think this is a less likely source when compared to something like a urinary tract infection, which is much more likely. In any case with the patient currently on dobutamine, instrumentation of either these regions is ill-advised given the increased risk of periprocedural complications. RECOMMENDATIONS: 1. I would continue the patient on current antibiotic therapy per Infectious Disease recommendations. 2. Continue to optimize cardiac status via Cardiology recommendations. 3. Could consider repeat upper endoscopy and/or ERCP for further evaluation of possible obstruction or choledocholithiasis given his history of normal transaminases with choledocholithiasis in the past. However, he did have stones on imaging in the past, so would be prudent to proceed with further imaging at this point. MRCP is typically the imaging modality of choice for further evaluation of the biliary tree, but given the fact that the patient has an AICD in place, it is contraindicated for this particular patient. 4. In any case, the patient will most likely need a transesophageal echo for evaluation of his cardiac leads in light of recent gram-negative bacteremia. We will continue to follow. Please call with any questions. Job ID: [id number]
[2020-04-24] MEDS: Acetaminophen 325 MG TAB PO PRN (21:00)
--- NOTE | 2020-04-24 21:15 | PDOC.HOSPP ---
- Subjective Encounter Date: 04/24/20 Subjective: The patient was seen and examined. He appears to be less confused compared to yesterday. He denies any new complaints. - Objective Vital Signs & Weight: Vital Signs (12 hours) Temp 04/24/20 19:06 98.1 F 04/24/20 15:23 98.3 F 04/24/20 11:10 98.4 F Weight Weight 172 lb 9.6 oz Most Recent Monitor Data Heart Rate from ECG 86 NIBP 139/79 NIBP BP-Mean 99 Respiration from ECG 24 SpO2 95 I&O: 04/23/20 04/24/20 04/25/20 06:59 06:59 06:59 Intake Total 771.0 1100 1000 Output Total 750 1455 550 Balance 21.0 -355 450 Result Diagrams: 04/24/20 03:24 04/24/20 03:24 Additional Labs: Accuchecks 04/24/20 04/24/20 04/24/20 19:58 16:34 10:46 POC Glucose 166 H 141 H 206 H 04/24/20 05:37 POC Glucose 192 H Hospitalist ROS - Medication Medications: Active Medications Generic Name Dose Route Start Last Admin Trade Name Freq PRN Reason Stop Dose Admin Acetaminophen 650 mg 04/23/20 20:02 04/24/20 21:00 Tylenol PO 650 mg Q6H PRN Administration Headache/Fever or Pain Amiodarone HCl 200 mg 04/23/20 09:00 04/24/20 09:03 Cordarone PO 200 mg DAILY FUNMI Administration Apixaban 2.5 mg 04/22/20 21:00 04/24/20 21:01 Eliquis PO 2.5 mg BID FUNMI Administration Aspirin 81 mg 04/23/20 09:00 04/24/20 09:03 Aspirin Chewable PO 81 mg DAILY FUNMI Administration Ferrous Sulfate 325 mg 04/23/20 08:00 04/24/20 09:03 Feosol PO 325 mg QAM-WM FUNMI Administration Gabapentin 300 mg 04/22/20 21:00 04/24/20 21:00 Neurontin PO 300 mg BID FUNMI Administration Meropenem 1 gm/ Device 50 mls @ 100 mls/hr 04/22/20 22:00 04/24/20 14:15 IVPB 50 mls Q8HR FUNMI Administration Insulin Human Lispro 0 units 04/22/20 13:53 04/24/20 06:12 Humalog SC 2 units .MODERATE SLIDING SC PRN Administration Moderate Correctional Scale Levothyroxine Sodium 25 mcg 04/23/20 06:00 04/24/20 06:13 Synthroid PO 25 mcg 0600 FUNMI Administration Sertraline HCl 25 mg 04/23/20 09:00 04/24/20 09:03 Zoloft PO 25 mg DAILY FUNMI Administration - Exam General Appearance: awake alert ENT: normocephalic atraumatic Neck: supple Heart: RRR, no murmur, no gallops, no rubs, normal peripheral pulses Respiratory: normal chest expansion, no tachypnea Gastrointestinal: soft, non-tender, non-distended, normal bowel sounds Hosp A/P (1) Sepsis Code(s): A41.9 - SEPSIS, UNSPECIFIED ORGANISM Status: Resolved (2) CAD (coronary artery disease) Code(s): I25.10 - ATHSCL HEART DISEASE OF [place] CORONARY ARTERY W/O ANG PCTRS Status: Chronic Qualifiers: (3) HTN (hypertension) Code(s): I10 - ESSENTIAL (PRIMARY) HYPERTENSION Status: Chronic Qualifiers: (4) Moderate aortic regurgitation Code(s): I35.1 - NONRHEUMATIC AORTIC (VALVE) INSUFFICIENCY Status: Chronic (5) Rheumatoid arthritis Code(s): M06.9 - RHEUMATOID ARTHRITIS, UNSPECIFIED Status: Chronic Qualifiers: (6) Severe tricuspid regurgitation Code(s): I07.1 - RHEUMATIC TRICUSPID INSUFFICIENCY Status: Chronic (7) Acute metabolic encephalopathy Code(s): G93.41 - METABOLIC ENCEPHALOPATHY Status: Resolved - Plan Septic shock of unclear source. Continue broad-spectrum IV antibiotics. Leukocytosis is improving. Septic shock improved. The patient is on IV dobutamine and diuretics has been initiated. ID suggested that cholangitis could be one of the possibilities of causing sepsis in this patient. GI was consulted. I discussed the case with who believes the pneumobilia is chronic in nature compared to previous studies and does not point to a new infection. Biliary source for the E. coli cannot be ruled out. He suggested to pursue an MRCP once the patient is stable.Cardiology also considering STEPHANIE to evaluate for endocarditis.
[2020-04-25 05:49] LABS: Hemoglobin A1c 6.2 % (4.0-6.0)
[2020-04-25 05:51] LABS: Mean Corpuscular Hemoglobin 28.2 pg (27.0-31.0); Mean Corpuscular Volume 88.3 fL (78.0-98.0); Mean Platelet Volume 8.2 fL (7.4-10.4); Platelet Count 289 thou/uL (130-400); RBC Distribution Width 17.3 % (11.5-14.5); Red Blood Cell (RBC) Count 3.55 mill/uL (4.70-6.10)
[2020-04-25 06:00] LABS: ALT (SGPT) 26 U/L (8-55); AST (SGOT) 17 U/L (5-34); Albumin 3.3 g/dL (3.4-4.8); Alkaline Phosphatase 59 U/L (40-110); Anion Gap 11 mmol/L (10-20); BUN (Urea Nitrogen) 46 mg/dL (8.4-25.7); Bilirubin, Total 0.3 mg/dL (0.2-1.2); Calc. Creatinine Clearance 49 mL/min (70-130); Calcium 9.3 mg/dL (7.8-10.44); Carbon Dioxide 29 mmol/L (23-31); Cardiac Risk 5.4 (Less than 4.5); Chloride 104 mmol/L (98-107); Cholesterol 177 mg/dl (< 200 Desired); Estimated GFR-MDRD 55; Globulin 3.3 g/dL (2.4-3.5); Glucose 110 mg/dL (83-110); HDL Cholesterol 33 mg/dL (>60 Neg Risk); LDL Cholesterol, Calculated 115 mg/dL; Potassium 4.8 mmol/L (3.5-5.1); Protein, Total 6.6 g/dL (5.8-8.1); Sodium 139 mmol/L (136-145); Triglycerides 145 mg/dL (Less than 150)
[2020-04-25] MEDS: MEROPENEM 1 GM/50 ML 1 GM in Premix Bag 1 BAG IVPB SCH ×3 (06:27→22:03)
[2020-04-25] MEDS: Levothyroxine Sodium 25 MCG TAB PO SCH (06:27)
[2020-04-25] MEDS: Gabapentin 300 MG CAP PO SCH ×2 (07:59→20:33)
[2020-04-25] MEDS: Aspirin Chewable 81 MG TAB PO SCH (07:59)
[2020-04-25] MEDS: Torsemide 20 MG TAB PO SCH (08:00)
[2020-04-25] MEDS: Apixaban 2.5 MG TAB PO SCH ×2 (08:00→20:33)
[2020-04-25] MEDS: Amiodarone 200 MG TAB PO SCH (08:00)
[2020-04-25] MEDS: Ferrous Sulfate 325 MG TAB PO SCH (08:00)
[2020-04-25] MEDS ORDERED: Spironolactone 25 MG TAB PO SCH ×2 (08:00→09:30)
--- NOTE | 2020-04-25 09:27 | PDOC.HOSPP ---
- Subjective Encounter Date: 04/25/20 Encounter Time: 12:00 Subjective: Patient without complaints. States that abdominal pain is resolved and feeling much better. Urinating frequently. - Objective Vital Signs & Weight: Vital Signs (12 hours) Temp Pulse Ox 04/25/20 07:18 97.7 F 04/25/20 07:15 96 04/25/20 03:31 99.2 F 04/24/20 23:29 97.8 F Weight Weight 174 lb 11.2 oz Most Recent Monitor Data Heart Rate from ECG 80 NIBP 139/76 NIBP BP-Mean 97 Respiration from ECG 8 SpO2 97 I&O: 04/24/20 04/25/20 04/26/20 06:59 06:59 06:59 Intake Total 1100 1370 Output Total 1455 2210 Balance -355 -840 Result Diagrams: 04/25/20 05:15 04/25/20 05:15 Additional Labs: Accuchecks 04/25/20 04/24/20 04/24/20 05:53 19:58 16:34 POC Glucose 108 166 H 141 H 04/24/20 10:46 POC Glucose 206 H Hospitalist ROS - Review of Systems Constitutional: denies: fever, chills Respiratory: denies: cough, shortness of breath Cardiovascular: denies: chest pain, palpitations Gastrointestinal: denies: nausea, vomiting, abdominal pain - Medication Medications: Active Medications Generic Name Dose Route Start Last Admin Trade Name Freq PRN Reason Stop Dose Admin Acetaminophen 650 mg 04/23/20 20:02 04/24/20 21:00 Tylenol PO 650 mg Q6H PRN Administration Headache/Fever or Pain Amiodarone HCl 200 mg 04/23/20 09:00 04/25/20 08:00 Cordarone PO 200 mg DAILY FUNMI Administration Apixaban 2.5 mg 04/22/20 21:00 04/25/20 08:00 Eliquis PO 2.5 mg BID FUNMI Administration Aspirin 81 mg 04/23/20 09:00 04/25/20 07:59 Aspirin Chewable PO 81 mg DAILY FUNMI Administration Gabapentin 300 mg 04/22/20 21:00 04/25/20 07:59 Neurontin PO 300 mg BID FUNMI Administration Meropenem 1 gm/ Device 50 mls @ 100 mls/hr 04/22/20 22:00 04/25/20 06:27 IVPB 50 mls Q8HR FUNMI Administration Insulin Human Lispro 0 units 04/22/20 13:53 04/24/20 06:12 Humalog SC 2 units .MODERATE SLIDING SC PRN Administration Moderate Correctional Scale Levothyroxine Sodium 25 mcg 04/23/20 06:00 04/25/20 06:27 Synthroid PO 25 mcg 0600 FUNMI Administration Sertraline HCl 25 mg 04/23/20 09:00 04/25/20 07:59 Zoloft PO 25 mg DAILY FUNMI Administration Spironolactone 12.5 mg 04/25/20 08:00 04/25/20 08:00 Aldactone PO 12.5 mg QAM-WM FUNMI Administration Torsemide 20 mg 04/25/20 09:00 04/25/20 08:00 Demadex PO 20 mg 0900 FUNMI Administration - Exam General Appearance: NAD, awake alert ENT: moist mucosa Heart: RRR, no murmur, no gallops, no rubs Respiratory: CTAB, no wheezes, no rales, no ronchi Gastrointestinal: soft, non-tender, non-distended, normal bowel sounds Psychiatric: normal affect, normal behavior Hosp A/P (1) Septic shock due to Escherichia coli Code(s): A41.51 - SEPSIS DUE TO ESCHERICHIA COLI [E. COLI]; R65.21 - SEVERE SEPSIS WITH SEPTIC SHOCK Status: Acute (2) CAD (coronary artery disease) Code(s): I25.10 - ATHSCL HEART DISEASE OF [place] CORONARY ARTERY W/O ANG PCTRS Status: Chronic Qualifiers: (3) COPD (chronic obstructive pulmonary disease) Status: Chronic Qualifiers: COPD type: chronic bronchitis (4) Chronic anticoagulation Code(s): Z79.01 - RESIDENTIAL (CURRENT) USE OF 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 Status: Chronic (5) Chronic stage c diastolic heart failure Code(s): I50.32 - CHRONIC DIASTOLIC (CONGESTIVE) HEART FAILURE Status: Chronic (6) Gout Code(s): M10.9 - GOUT, UNSPECIFIED Status: Chronic Qualifiers: Gout site: multiple sites Encounter type: subsequent encounter Presence of tophus: without tophus (7) HTN (hypertension) Code(s): I10 - ESSENTIAL (PRIMARY) HYPERTENSION Status: Chronic Qualifiers: (8) Moderate aortic regurgitation Code(s): I35.1 - NONRHEUMATIC AORTIC (VALVE) INSUFFICIENCY Status: Chronic (9) Rheumatoid arthritis Code(s): M06.9 - RHEUMATOID ARTHRITIS, UNSPECIFIED Status: Chronic Qualifiers: (10) Severe tricuspid regurgitation Code(s): I07.1 - RHEUMATIC TRICUSPID INSUFFICIENCY Status: Chronic - Plan Septic shock with E. coli bacteremia of unclear source. Continue Meropenem IV antibiotics. Leukocytosis is resolved. Septic shock improved. The patient is on IV dobutamine and diuretics has been initiated. ID suggested that cholangitis could be one of the possibilities of causing sepsis in this patient. GI was consulted. who believes the pneumobilia is chronic in nature compared to previous studies and does not point to a new infection. Biliary source for the E. coli cannot be ruled out. He suggested to pursue imaging once the patient is stable. Cardiology also considering STEPHANIE to evaluate for endocarditis.
[2020-04-25 09:59] LABS: Anisocytosis SLIGHT = 6-15 cells (100X) (0-5/hpf); Lymphocytes 5 % (21-51); MDiff Complete? YES; Monocytes 5 % (0-10); Neutrophil 90 % (42-75)
[2020-04-25] MEDS ORDERED: Levothyroxine Sodium 25 MCG TAB PO SCH (11:00)
--- NOTE | 2020-04-25 12:49 | PRG ---
DATE OF SERVICE: 04/25/2020 This is from [facility]. SUBJECTIVE: Mr. Donny Rogers had an excellent day. He is able to ambulate some short distances with his walker. He is able to maintain systolic blood pressure above 110 to 120 without any difficulty. He urinated quite a bit with torsemide 20 mg daily. He felt good. He was able to eat. He repeated his belief that after eating pork from [employer] and green lee salad that he started throwing up the day later; he believes that pork patties and green lee salad caused his problems. REVIEW OF SYSTEMS: GENERAL: There is no fever, chills, or productive cough. HEENT: There is no change in vision, hearing, or swallowing. PULMONARY: There is no shortness of breath. CARDIAC: There is no complaint of chest pains, palpitations, or shortness of breath. GI: He is able to eat. There is no nausea or vomiting. : He is urinating well. MUSCULOSKELETAL: He has chronic back pain. INTEGUMENT: There is no new skin breakdown. NEUROLOGIC: There are no complaints of focal deficits or weaknesses. MEDICATIONS: His cardiac infection related medications include; amiodarone 200 mg daily, apixaban 2.5 mg daily, aspirin 81 mg daily, dobutamine currently at 2.5 mcg/kg/min, gabapentin 300 mg b.i.d., levothyroxine at 25 mcg daily, magnesium oxide 400 mg twice per day. He is currently receiving meropenem 1 g daily. He is also on spironolactone 12.5 mg daily and torsemide 20 mg daily. PHYSICAL EXAMINATION: VITAL SIGNS: The telemetry was reviewed. He is paced at 80 beats per minute; there are occasional PVCs. There are no concerning arrhythmia. There is ventricular tachycardia. His latest recorded vital signs are heart rate 80 and blood pressure 132/76. GENERAL: He is alert and conversational, sitting comfortably in bed, more energetic today than yesterday. HEENT: Show EOMI. Oropharynx is benign with moist mucosa. NECK: He still has a right IJ central line placed. JVP is roughly about 10 cm. PULMONARY: There is good air movement bilaterally, there is slight right basilar crackle, much better than yesterday. CARDIAC: Regular rate and rhythm with 2/6 holosystolic murmur at the apex with radiation to the left axilla. There is 2/6 diastolic murmur at the right sternal border. There is also 2/6 crescendo-decrescendo murmur at right upper sternal border. He has murmurs of mitral regurgitation, aortic regurgitation, and aortic stenosis. ABDOMEN: Kind of distended, soft, and nontender. Positive bowel sounds. EXTREMITIES: Lower extremities without edema. There is a palpable dorsalis pedis pulse. LABORATORY DATA: His laboratory shows white cell count of 10, hemoglobin 10, and hematocrit 31. His sodium is 139, potassium 4.9, BUN 46, creatinine is 1.25. He has elevated TSH of 9.0855 ASSESSMENT: 85-year-old gentleman is recovering nicely from septic shock due to gram-negative rods and now has been speciated and susceptibilities have been done. It looks like it is E coli susceptible to multiple antibiotics. The origin of gram-negative rods remains unknown. We would appreciate input from GI. There is possibly a need for MRCP. I will check with device maker to see if it is possible with the current device. With recurrent sepsis and possibility of flickering images seen on echocardiogram in the right ventricle, then a transesophageal echocardiogram is needed to clear his pacemaker leads and his valves. Today, we will start titrating down his inotropic support. Please see the following for my recommendations. RECOMMENDATIONS: 1. Decrease dobutamine down to 2 mcg/kg/min. There is a good chance that we can reduce it down to 1 mcg/kg/min either tonight or tomorrow morning. 2. Increase spironolactone to 25 mg daily. 3. Maintain torsemide 10 mg daily. 4. Discontinue iron sulfate. The patient is not taking it. He complains bitterly about it. 5. Increase levothyroxine to 50 mcg p.o. daily, 25 is not enough. 6. Please add iron, TIBC, percent saturation, and ferritin to tomorrow's morning labs. He does get iron infusions, so this needs to be checked. 7. I will work with other porter marina trying to schedule potential transesophageal echocardiogram for tomorrow. It has been a pleasure taking care of Mr. Donny Rogers. If you have questions, please give me a call. Critical care time is 35 minutes. Job ID: [id number] [facility]
--- NOTE | 2020-04-25 12:53 | PRG ---
DATE OF SERVICE: 04/25/2020 REASON FOR CONSULTATION: Possible hepatic biliary origin of E coli sepsis. SUBJECTIVE: The patient states that he is feeling much better today with minimization of his abdominal pain, and he states that he has been able to have multiple bouts of urination, stating that "I've been urinating a lot today." Otherwise, he denies any nausea, vomiting, fevers, chills, GI bleeding, diarrhea, or constipation. OBJECTIVE: VITAL SIGNS: Temperature 98.4, pulse 80, blood pressure 116/73, respiratory rate 17, and saturating 97% on room air. GENERAL: The patient is lying in bed, in no acute distress. Alert and oriented x4. CARDIOVASCULAR: High-pitched systolic murmur was heard at the right upper sternal border as well as at the left lower sternal border, but no other gallops or rubs. RESPIRATORY: Clear to auscultation bilaterally. ABDOMEN: Normoactive bowel sounds. Soft, nondistended. Mild tenderness to palpation in the midepigastric region. EXTREMITIES: No cyanosis, clubbing, or edema. LABORATORY DATA: CBC with a white blood cell count of 10, hemoglobin 10, hematocrit 31.3, and platelets 289. Chemistry with a sodium of 139, potassium 4.8, chloride 104, CO2 of 29, BUN 46, creatinine 1.25, and glucose 110. IMAGING DATA: No current GI imaging is available for review. ASSESSMENT AND PLAN: The patient is an 85-year-old male with past medical history of congestive heart failure, mitral regurgitation, aortic stenosis, ventricular tachycardia, atrial fibrillation on anticoagulation, diabetes, hypothyroidism, coronary artery disease, gout, hypertension, BPH, rheumatoid arthritis, chronic kidney disease, and choledocholithiasis in 2013, presenting with Escherichia coli bacteremia without an obvious pathogen source. Escherichia coli bacteremia. The patient initially presented to the hospital with nausea, vomiting, midepigastric abdominal pain, and fever as well as altered mental status, prompting evaluation in the ER. On further questioning the patient, he states that he had been having complaints of dysuria prior to the onset of the above symptoms. In any case, the patient was evaluated in the ER with blood cultures obtained on admission, noting Escherichia coli within the blood. He was subsequently placed on antibiotic therapy and since that time has been responding well to therapy with significant improvement in his clinical status. However, also on admission, he was noted to have imaging showing the presence of pneumobilia that has been present since at least May 2019 and most likely has been present since his ERCP in 2014. At this time, this is a stable finding and most likely not indicative of concurrent infection, and while he did not have elevation of his LFTs at that time they did ERCP with choledocholithiasis, they did see filling defects on imaging, which is not present on the current imaging. At this time, I feel a urinary origin, especially given his dysuria and difficulty with urination over the last few days, is a higher likelihood for nidus of infection, especially in an uncircumcised patient. In any case, the patient is still on a dobutamine drip in relation to his cardiac comorbidities and currently being followed by the Cardiology Service. RECOMMENDATIONS: 1. Continue on current antibiotic therapy. 2. Continue to optimize cardiac status. 3. Would consider repeat imaging prior to upper endoscopy or ERCP, especially given the fact that the patient is on a dobutamine drip. The patient would most likely need to be off this prior to engaging with endoscopic evaluation. Ideally, MRCP is the modality of choice for further evaluation of the biliary tree, but given the fact that the patient has an AICD in place, this would be contraindicated. Repeat CT scan with possible pancreas protocol may be able to get better imaging/slices of that particular region. We will continue to follow. Please call with any questions. Job ID: [id number]
--- NOTE | 2020-04-25 13:06 | PRG ---
DATE OF SERVICE: 04/25/2020 SUBJECTIVE: This morning, he is awake, alert, and responsive. He is doing well. His EF was 45%, found to have severe MR, but he is doing well. He presented with sepsis syndrome. OBJECTIVE: VITAL SIGNS: o2 sat 94%, blood pressure 130/76, respiratory rate 18. pulse 72/min CHEST: No wheezing or crackles. CARDIAC: Normal S1, S2. No gallops. ABDOMEN: No masses. LABORATORY DATA: White count 10,000. Lytes are normal. BUN and creatinine are slightly elevated. TSH is 9. ASSESSMENT: Sepsis syndrome, E coli, hypothyroidism. PLAN: I agree with present treatment. Disposition as per ID. Job ID: [id number] [facility]
--- NOTE | 2020-04-25 17:39 | PRG ---
DATE OF SERVICE: 04/25/2020 SUBJECTIVE: Mr. Rogers is awake. He denies any pain. No shortness of breath. The patient denies abdominal pain. OBJECTIVE: VITAL SIGNS: His temperature has been normal since admission, blood pressure 130/77, heart rate 80, and respiratory rate 23. GENERAL: He is in no distress, awake. LUNGS: Symmetric air entry. Faint crackles at the bases. ABDOMEN: With epigastric tenderness area. LABORATORY DATA: White cell count is down to 10,000 hemoglobin 10, and platelets 289 with 90% neutrophils and creatinine 1.25. Liver profile normal. Albumin 3.3 and a lipase was 44. TSH 9.0. Urinalysis normal. Repeat blood culture, no growth at [address] Gracia has evaluated the patient, and he was recommended continuation of antimicrobial therapy, and will consider repeating imaging study prior to upper endoscopy or ERCP believes that ideally MRCP would be the modality of choice, but he cannot do that because of the automatic implantable cardioverter-defibrillator, so probably, the treatment duration will be approximately 2 weeks or less, maybe 10 to 14 days. Evidently, he has had this issue in the past and it will likely to become a recurrent problem. Job ID: [id number] [facility]
[2020-04-25] MEDS ORDERED: Electrolyte Replacement Protocol FS PRN (20:15)
[2020-04-25] MEDS: Acetaminophen 325 MG TAB PO PRN (20:33)
[2020-04-26] MEDS: MEROPENEM 1 GM/50 ML 1 GM in Premix Bag 1 BAG IVPB SCH ×3 (05:17→21:13)
[2020-04-26] MEDS: Levothyroxine Sodium 50 MCG TAB PO SCH (05:17)
[2020-04-26 05:22] LABS: Band 1 % (5-11); Eosinophils 1 % (0-10); Hemoglobin 10.5 g/dL (14.0-18.0); Hypochromia SLIGHT = 6-15 cells (100X) (0-5/hpf); Lymphocytes 6 % (21-51); MDiff Complete? YES; Mean Corpuscular HGB CONC 31.8 g/dL (32.0-36.0); Mean Corpuscular Hemoglobin 28.4 pg (27.0-31.0); Mean Corpuscular Volume 89.4 fL (78.0-98.0); Mean Platelet Volume 7.9 fL (7.4-10.4); Monocytes 9 % (0-10); Neutrophil 83 % (42-75); Platelet Count 282 thou/uL (130-400); Platelet Morphology Comment Appears Adequate; RBC Distribution Width 17.4 % (11.5-14.5); Red Blood Cell (RBC) Count 3.68 mill/uL (4.70-6.10); White Blood Cell (WBC) Count 8.7 thou/uL (4.8-10.8)
[2020-04-26 05:32] LABS: ALT (SGPT) 24 U/L (8-55); AST (SGOT) 15 U/L (5-34); Albumin 3.4 g/dL (3.4-4.8); Alkaline Phosphatase 64 U/L (40-110); Anion Gap 11 mmol/L (10-20); BUN (Urea Nitrogen) 48 mg/dL (8.4-25.7); Bilirubin, Total 0.4 mg/dL (0.2-1.2); Calc. Creatinine Clearance 47 mL/min (70-130); Calcium 9.2 mg/dL (7.8-10.44); Carbon Dioxide 33 mmol/L (23-31); Chloride 101 mmol/L (98-107); Estimated GFR-MDRD 53; Globulin 3.2 g/dL (2.4-3.5); Glucose 119 mg/dL (83-110); Iron 35 ug/dL (65-175); Iron Binding Capacity, Total 226 mcg/dL (261-462); Potassium 4.6 mmol/L (3.5-5.1); Protein, Total 6.6 g/dL (5.8-8.1); Sodium 140 mmol/L (136-145)
[2020-04-26] MEDS: Spironolactone 25 MG TAB PO SCH (07:51)
[2020-04-26] MEDS: Torsemide 20 MG TAB PO SCH (07:51)
[2020-04-26] MEDS: Gabapentin 300 MG CAP PO SCH ×2 (07:51→21:12)
[2020-04-26] MEDS: Amiodarone 200 MG TAB PO SCH (07:51)
[2020-04-26] MEDS: Aspirin Chewable 81 MG TAB PO SCH (07:51)
[2020-04-26] MEDS: Apixaban 2.5 MG TAB PO SCH ×3 (07:52→21:12)
--- NOTE | 2020-04-26 08:35 | PDOC.HOSPP ---
- Subjective Encounter Date: 04/26/20 Encounter Time: 10:30 Subjective: Patient without any further abdominal pain. No fever. Urinating frequently. - Objective Vital Signs & Weight: Vital Signs (12 hours) Temp Pulse Ox 04/26/20 07:53 97 04/26/20 07:36 97.6 F 04/26/20 07:15 98 04/26/20 04:00 98.3 F 04/26/20 00:00 98.1 F Weight Weight 172 lb 9.6 oz Most Recent Monitor Data Heart Rate from ECG 80 NIBP 120/56 NIBP BP-Mean 77 Respiration from ECG 19 SpO2 93 I&O: 04/25/20 04/26/20 04/27/20 06:59 06:59 06:59 Intake Total 1370 1310 Output Total 2210 2285 Balance -020 -450 Result Diagrams: 04/26/20 04:40 04/26/20 04:40 Additional Labs: Accuchecks 04/26/20 04/25/20 04/25/20 05:55 20:29 16:57 POC Glucose 122 H 174 H 106 04/25/20 10:54 POC Glucose 133 H Hospitalist ROS - Review of Systems Constitutional: denies: fever, chills Respiratory: denies: cough, shortness of breath Cardiovascular: denies: chest pain, palpitations, orthopnea Gastrointestinal: denies: nausea, vomiting, abdominal pain Genitourinary: reports: frequency. denies: dysuria - Medication Medications: Active Medications Generic Name Dose Route Start Last Admin Trade Name Freq PRN Reason Stop Dose Admin Acetaminophen 650 mg 04/23/20 20:02 04/25/20 20:33 Tylenol PO 650 mg Q6H PRN Administration Headache/Fever or Pain Amiodarone HCl 200 mg 04/23/20 09:00 04/26/20 07:51 Cordarone PO 200 mg DAILY FUNMI Administration Apixaban 2.5 mg 04/22/20 21:00 04/25/20 20:33 Eliquis PO 2.5 mg BID FUNMI Administration Aspirin 81 mg 04/23/20 09:00 04/26/20 07:51 Aspirin Chewable PO 81 mg DAILY FUNMI Administration Gabapentin 300 mg 04/22/20 21:00 04/26/20 07:51 Neurontin PO 300 mg BID FUNMI Administration Meropenem 1 gm/ Device 50 mls @ 100 mls/hr 04/22/20 22:00 04/26/20 05:17 IVPB 50 mls Q8HR FUNMI Administration Insulin Human Lispro 0 units 04/22/20 13:53 04/24/20 06:12 Humalog SC 2 units .MODERATE SLIDING SC PRN Administration Moderate Correctional Scale Levothyroxine Sodium 50 mcg 04/26/20 06:00 04/26/20 05:17 Synthroid PO 50 mcg 0600 FUNMI Administration Sertraline HCl 25 mg 04/23/20 09:00 04/26/20 07:51 Zoloft PO 25 mg DAILY FUNMI Administration Sodium Chloride 10 ml 04/26/20 09:00 04/26/20 07:52 Flush - Normal Saline IVF 10 ml Q12HR FUNMI Administration Spironolactone 25 mg 04/26/20 08:00 04/26/20 07:51 Aldactone PO 25 mg QAM-WM FUNMI Administration Torsemide 20 mg 04/25/20 09:00 04/26/20 07:51 Demadex PO 20 mg 0900 FUNMI Administration - Exam General Appearance: NAD, awake alert ENT: moist mucosa Heart: RRR, no murmur, no gallops, no rubs Respiratory: CTAB, no wheezes, no rales, no ronchi Gastrointestinal: soft, non-tender, non-distended, normal bowel sounds Psychiatric: normal affect, normal behavior, A&O x 3 Hosp A/P (1) Septic shock due to Escherichia coli Code(s): A41.51 - SEPSIS DUE TO ESCHERICHIA COLI [E. 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 Status: Chronic (5) Chronic stage c diastolic heart failure Code(s): I50.32 - CHRONIC DIASTOLIC (CONGESTIVE) HEART FAILURE Status: Chronic (6) Gout Code(s): M10.9 - GOUT, UNSPECIFIED Status: Chronic Qualifiers: Gout site: multiple sites Encounter type: subsequent encounter Presence of tophus: without tophus (7) HTN (hypertension) Code(s): I10 - ESSENTIAL (PRIMARY) HYPERTENSION Status: Chronic Qualifiers: (8) Moderate aortic regurgitation Code(s): I35.1 - NONRHEUMATIC AORTIC (VALVE) INSUFFICIENCY Status: Chronic (9) Rheumatoid arthritis Code(s): M06.9 - RHEUMATOID ARTHRITIS, UNSPECIFIED Status: Chronic Qualifiers: (10) Severe tricuspid regurgitation Code(s): I07.1 - RHEUMATIC TRICUSPID INSUFFICIENCY Status: Chronic - Plan Septic shock with E. coli bacteremia of unclear source Continue Meropenem IV antibiotics. Leukocytosis is resolved. Septic shock improved. The patient is on IV dobutamine and diuretics has been initiated with good result, weaning dobutamine per Dr. Kimble's directions ID suggested that cholangitis could be one of the possibilities of causing sepsis in this patient. GI was consulted. who believes the pneumobilia is chronic in nature compared to previous studies and does not point to a new infection. Biliary source for the E. coli cannot be ruled out. He suggested to pursue imaging once the patient is stable. Patient heading down for STEPHANIE now to make sure no infection of the defibrillator leads.
[2020-04-26] MEDS ORDERED: Magnesium 2 GM/50 ML 2 GM in Premix Bag 1 BAG IVPB SCH (08:45)
[2020-04-26] MEDS ORDERED: Magnesium Oxide 400 MG TAB PO SCH (09:00)
[2020-04-26] MEDS ORDERED: Sodium Chloride 0.9% 500 ML IV SCH (09:30)
--- NOTE | 2020-04-26 09:50 | PRG ---
DATE OF SERVICE: 04/26/2020 SERVICE: [facility]. SUBJECTIVE: Mr. Donny Rogers had a good day. He was able to ambulate and walk on his own. He is breathing well. He is feeling well. There are no complaints of cardiac or infectious symptoms. He was able to maintain his blood pressure about 100 to 110. He did dip down to 95 with slow titrating down of dobutamine. REVIEW OF SYSTEMS: GENERAL: There is no fever, chills, or productive cough. HEENT: There is no change in vision, hearing, or swallowing. PULMONARY: There is no shortness of breath. CARDIAC: There is no chest pain, palpitation, or syncope. GI: There is no nausea, vomiting. : He says he is urinating less. MUSCULOSKELETAL: He has chronic lower back pain. INTEGUMENT: There is no complaint with new skin breakdowns. NEUROLOGIC: There are no new focal deficits or weaknesses. MEDICATIONS: His current cardiac medications include 1. Amiodarone 200 mg daily. 2. Apixaban 2.5 mg b.i.d. 3. Aspirin 81 mg daily. 4. Dobutamine currently at 2 mcg/kg per minute. 5. Gabapentin 200 mg b.i.d. 6. Levothyroxine has been increased to 50 mcg daily. 7. He is on electrolyte replacement protocol. 8. He is currently on meropenem 1 g daily for gram negative rods, which is E coli. 9. Spironolactone 25 mg daily. 10. Torsemide 20 mg daily. PHYSICAL EXAMINATION: Telemetry was reviewed. He has occasional PVC. There is no ventricular tachycardia. There are no concerning arrhythmias. VITAL SIGNS: Heart rate 80 paced, blood pressure 130/75. GENERAL: He is alert, conversational, reclining comfortably in bed. HEENT: EOMI. Oropharynx is benign with moist mucosa. There is a central line in the right internal jugular vein in the right side of neck. NECK: Neck veins are probably around 10 cm. PULMONARY: Good air movement bilateral, clear to auscultation bilaterally. CARDIAC: Regular rate and rhythm with 2/6 holosystolic murmur at the apex with radiation to the left lower axilla. There is a 1/6 diastolic murmur at the right lower sternal border. There is 2/6 crescendo-decrescendo murmur at the right upper sternal border. So consequently, he has murmurs of mitral regurgitation, aortic regurgitation, or aortic stenosis. ABDOMEN: Soft, nontender. Positive bowel sounds. EXTREMITIES: Lower extremity exam without edema, warm, well perfused. Positive dorsalis pedis pulses bilaterally. LABORATORY DATA: Laboratory value shows that his white cell count has continued to decrease at 8.7, hemoglobin 10.5, hematocrit 32.9, and his chemistry shows sodium 140, potassium 4.6, bicarb 33, BUN of 48, creatinine 1.3. His iron is low at 35. His iron saturation is low at 15. ASSESSMENT: 85-year-old gentleman is recovering well from septic shock due to E coli. He is requiring less dobutamine now. He is a little bit over diuresed. We will need to give him back little bit of fluids and he will need to have a transesophageal echocardiogram done today to make sure there are no lead infections. This is due to his third admission for septic shock. His device needs to be cleared. For today, we will concentrate on getting a STEPHANIE done and give him a little bit of fluids back and afterwards we will continue to titrate down dobutamine, hope to be off sometime tomorrow. RECOMMENDATIONS: 1. Please provide normal saline at 50 mL/h for 8 hours. 2. Discontinue torsemide for now. 3. Start acetazolamide 250 mg daily for contraction alkalosis. 4. Proceed with transesophageal echocardiogram today. 5. We will start titrating down and perhaps off dobutamine once STEPHANIE is done. We need to wait until the STEPHANIE done and he is off anesthesia effects before we completely titrate off the dobutamine. It has been a pleasure taking care of Mr. Donny Rogers. If you have any questions, please give me a call. Critical care time is 35 minutes. Job ID: [id number] [facility]
[2020-04-26] MEDS ORDERED: Propofol 500 MG/50 ML VIAL ONE (10:14)
[2020-04-26] MEDS ORDERED: EPHEDRINE 25 MG/5 ML SYRINGE ONE (10:55)
[2020-04-26] MEDS ORDERED: PROPOFOL 200 MG/20 ML VIAL ONE (10:55)
[2020-04-26] MEDS ORDERED: PHENYLEPHRINE-NS 100 MCG/ML 10 ML SYRINGE ONE (10:55)
--- NOTE | 2020-04-26 11:35 | PRG ---
DATE OF SERVICE: 04/26/2020 SUBJECTIVE: This morning, he is doing better. OBJECTIVE: VITAL SIGNS: Temperature 97, saturations 97 on room air, blood pressure denies any shortness of breath. CHEST: Decreased breath sounds. No wheezing. CARDIAC: Normal S1 and S2. No gallops. ABDOMEN: No mass. IMPRESSION: Chronic obstructive pulmonary disease, congestive heart failure, sepsis. 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 Disposition as per primary care physician. Job ID: [id number]
--- NOTE | 2020-04-26 11:41 | OP ---
DATE OF PROCEDURE: 04/26/2020 PROCEDURE PERFORMED: Transesophageal echocardiogram. INDICATION: An 85-year-old gentleman with sepsis. DESCRIPTION OF PROCEDURE: The patient was taken to the PACU. The patient was sedated by Anesthesiology. A transesophageal probe was placed into the distal esophagus and stomach. Echocardiographic images were obtained. The transesophageal probe was removed. FINDINGS: 1. Decreased left ventricular systolic function. 2. Left ventricle is dilated. 3. The aortic valve leaflets are heavily thickened with slight reduction in leaflet excursion. 4. The mitral valve leaflets appear to be normal. 5. Mild mitral regurgitation. 6. Mild tricuspid regurgitation. 7. The lead wires in the right atrium and right ventricle did not appear to have any obvious masses attached to them. 8. Atherosclerotic debris in the descending aorta. IMPRESSION: No obvious mass is noted attached to the cardiac valves or lead wire suggestive of endocarditis or a lead infection. Job ID: [id number]
--- NOTE | 2020-04-26 16:23 | PRG ---
DATE OF SERVICE: 04/26/2020 SUBJECTIVE: The patient feels great today. He denies having any nausea, vomiting, or any abdominal pain. He tolerates all diet. He is on minimal dobutamine drip for pressor support. OBJECTIVE: VITAL SIGNS: Temperature is 97.6, blood pressure is 120/73, and pulse of 88. GENERAL: He is alert, conversant, does not appear in any distress. HEENT: Anicteric sclerae. Oropharynx is clear and moist. CV: Normal S1 and S2. Regular rate and rhythm. CHEST: Breath sounds. ABDOMEN: Soft, mildly protuberant, nontender. No mass or organomegaly. EXTREMITIES: No edema. LABORATORY DATA: His bilirubin 0.4, AST 15, ALT 24, and alkaline phosphatase 64. His WBCs 8.7, hemoglobin 10.5, and platelet count of 282. Transesophageal echocardiogram was negative for any vegetation. ASSESSMENT: 1. Escherichia coli bacteremia, 1 of 4 sets of blood cultures, undetermined pathogen source. The patient did present with nausea, vomiting, and epigastric pain, raising suspicion for biliary source as he has had prior choledocholithiasis managed with ERCP. However, there is no change in his liver profile during this admission. An abdominopelvic CT did not show any significant abnormality. Pneumobilia seen on CT is from previous sphincterotomy from the ERCP. 2. The patient is currently doing well, afebrile with normalization of white blood count. RECOMMENDATIONS: 1. Given repeated admissions with bacteremia from undetermined source, will proceed with ERCP. 2. Continue antimicrobial, I suspect the patient can be discharged to home after ERCP if he does well. Job ID: [id number] MTDD
--- NOTE | 2020-04-26 18:23 | PRG ---
DATE OF SERVICE: 04/26/2020 SUBJECTIVE: Mr. Rogers is feeling good. He is sitting in bed and he denies any headaches. No cough. The abdominal pain has resolved and is voiding without difficulty, and he has been afebrile for quite a while now. Other vital signs are fairly normal. OBJECTIVE: LUNGS: With very faint crackles at the bases. HEART: S1 and S2, regular rate. No S3 or S4. ABDOMEN: Soft, not distended. No more tenderness in the epigastric area. NEURO: Nonfocal. LABORATORY DATA: White cell count is down to 8.7, hemoglobin 10.5, platelets 282 with 82% neutrophils. Sodium 140, creatinine 1.3. Repeat blood culture, no growth. I think Dr. Nuñez is planning an ERCP tomorrow. 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 Despite normal liver function tests, Dr. Nuñez is going to try to evaluate again, since this is the more likely scenario that he has cholangitis recurrence without obstructive features, therefore, no elevation in transaminases and so on. So once we have the results of that study, then we will be able to plan the disposition for Mr. Rogers. Job ID: [id number]
[2020-04-26] MEDS: Acetaminophen 325 MG TAB PO PRN (21:12)
[2020-04-27 05:01] LABS: ALT (SGPT) 21 U/L (8-55); AST (SGOT) 12 U/L (5-34); Albumin 3.4 g/dL (3.4-4.8); Alkaline Phosphatase 66 U/L (40-110); Anion Gap 13 mmol/L (10-20); BUN (Urea Nitrogen) 39 mg/dL (8.4-25.7); Bilirubin, Total 0.5 mg/dL (0.2-1.2); Calc. Creatinine Clearance 51 mL/min (70-130); Calcium 9.2 mg/dL (7.8-10.44); Carbon Dioxide 32 mmol/L (23-31); Chloride 97 mmol/L (98-107); Estimated GFR-MDRD 58; Globulin 3.3 g/dL (2.4-3.5); Glucose 103 mg/dL (83-110); Magnesium 2.4 mg/dL (1.6-2.6); Potassium 4.6 mmol/L (3.5-5.1); Protein, Total 6.7 g/dL (5.8-8.1); Sodium 137 mmol/L (136-145)
[2020-04-27 05:53] LABS: Band 11 % (5-11); Eosinophils 3 % (0-10); Hemoglobin 10.7 g/dL (14.0-18.0); Lymphocytes 12 % (21-51); MDiff Complete? YES; Mean Corpuscular HGB CONC 32.1 g/dL (32.0-36.0); Mean Corpuscular Hemoglobin 28.4 pg (27.0-31.0); Mean Corpuscular Volume 88.4 fL (78.0-98.0); Mean Platelet Volume 8.2 fL (7.4-10.4); Monocytes 7 % (0-10); Neutrophil 67 % (42-75); Platelet Count 267 thou/uL (130-400); RBC Distribution Width 17.1 % (11.5-14.5); Red Blood Cell (RBC) Count 3.77 mill/uL (4.70-6.10); White Blood Cell (WBC) Count 10.8 thou/uL (4.8-10.8)
[2020-04-27] MEDS: Levothyroxine Sodium 50 MCG TAB PO SCH (06:11)
[2020-04-27] MEDS: MEROPENEM 1 GM/50 ML 1 GM in Premix Bag 1 BAG IVPB SCH ×3 (06:11→22:19)
[2020-04-27] MEDS ORDERED: Indomethacin 50 MG SUPP ONE (09:20)
[2020-04-27] MEDS ORDERED: Ioversol 68 % 50 ML VIAL ONE ×2 (09:21→10:56)
[2020-04-27] MEDS ORDERED: Fentanyl 100 MCG/2 ML VIAL ONE (10:38)
[2020-04-27] MEDS ORDERED: Rocuronium Bromide 10 MG/ML (10ML VIAL) ONE ×2 (11:35→11:38)
[2020-04-27] MEDS ORDERED: Ondansetron PF 4 MG/2 ML Vial ONE ×2 (11:35→11:38)
[2020-04-27] MEDS ORDERED: Lidocaine 1% PF 5 ML VIAL ONE ×2 (11:35→11:38)
[2020-04-27] MEDS ORDERED: PROPOFOL 200 MG/20 ML VIAL ONE ×2 (11:35→11:38)
[2020-04-27] MEDS ORDERED: EPHEDRINE 25 MG/5 ML SYRINGE ONE (11:35)
[2020-04-27] MEDS ORDERED: PHENYLEPHRINE-NS 100 MCG/ML 10 ML SYRINGE ONE (11:35)
[2020-04-27] MEDS ORDERED: Glycopyrrolate 0.2 MG/ML 5 ML SYRINGE ONE (11:35)
--- NOTE | 2020-04-27 11:35 | PRG ---
DATE OF SERVICE: 04/27/2020 This is from [facility]. SUBJECTIVE: Mr. Donny Rogers had an excellent day. He underwent transesophageal echocardiogram without any difficulty. He recovered quickly. His dobutamine drip was able to be titrated off over 24 hours. He was able to maintain systolic blood pressure over 100 without dobutamine. He was able to walk short distance after STEPHANIE. He denied any cardiac symptoms. He is breathing easy. He is ready for the ERCP today. REVIEW OF SYSTEMS: GENERAL: There is no fever, chills, or productive cough. HEENT: There are no changes in vision, hearing, or swallowing. PULMONARY: Please see HPI. CARDIAC: There is no chest pain, palpitation, or syncope. GI: There is no nausea or vomiting. : He said he is still urinating quite a bit, that is actually okay. MUSCULOSKELETAL: He has chronic lower back pain. INTEGUMENT: There is no new skin breakdown. NEUROLOGIC: There are no new focal deficits or weaknesses. CURRENT MEDICATIONS: Include; 1. Amiodarone 200 mg daily. 2. Apixaban 2.5 mg b.i.d. 3. Aspirin 81 mg daily. 4. Dobutamine has been titrated off. 5. Levothyroxine 50 mcg daily. 6. Meropenem 1 g daily. 7. Spironolactone at 25 mg daily. His telemetry was reviewed. It showed his paced rhythm about 80, there are frequent PVCs, but there is no concerning arrhythmia. There is no ventricular tachycardia or atrial fibrillation. PHYSICAL EXAMINATION: VITAL SIGNS: His latest vitals; heart rate 80, which is paced, and blood pressure 116/71. GENERAL: He is alert and conversational, reclined comfortably in bed. HEENT: Showed EOMI. Oropharynx is benign with moist mucosa. NECK: His JVP is about 9 cm. PULMONARY: There is good air movement bilaterally and clear to auscultation bilaterally. CARDIAC: Regular rate and rhythm with 2/6 diastolic murmur at right lower sternal border corresponding to aortic regurgitation. There is 2/6 holosystolic murmur at the apex with radiation to the left axilla corresponding to mitral regurgitation. ABDOMEN: Mildly distended, soft. Positive bowel sounds. Nontender. EXTREMITIES: His lower extremities are without edema, there is a positive dorsalis pedis pulse, and are well perfused. LABORATORY VALUES: Chemistry; sodium 137, potassium 4.6, chloride 97, bicarb is 32, BUN 39, and creatinine is 1.19, this is the best yet. ASSESSMENT: 85-year-old gentleman is recovering well from his third episode of septic shock. He is able to be weaned off all inotropes now. It is growing 1 out of 2 gram-negative rods corresponding to pansensitive E coli. At this point, his biliary tract is most likely suspect. With his third septic shock, perhaps this really needs to be revisited. The transesophageal echocardiogram did not show any endocarditis. It also did not show any vegetation on his [employer] lead, so consequently it is not due to endocarditis at all. His prior admissions were caused by septic shock and not congestive heart failure. In prior 2 admissions required antibiotics to reverse the sitiuatio. In all instances, he goes home with antibiotics and then about a month later, something happens, he comes back in with septic shock. So, consequently, having a definitive diagnosis of the source of this infection will be important. Please see the following for my recommendations. RECOMMENDATIONS: 1. Please proceed to ERCP. 2. May restart dobutamine at 2.5 mcg/kg per minute if systolic blood pressure drops below 95. 3. Please start torsemide 10 mg daily. 4. Please give him a little bit of IV fluids at 50 mL/h until the procedure is done to replace his insensible losses. It has been a pleasure taking care of Mr. Donny Rogers. If you have any questions, please give me a call. Job ID: [id number] MTDD
[2020-04-27] MEDS ORDERED: Dexamethasone 20 MG/5 ML VIAL ONE (11:38)
[2020-04-27] MEDS ORDERED: Ketorolac Tromethamine 30 MG/ML VIAL ONE (11:38)
--- NOTE | 2020-04-27 11:42 | PRG ---
DATE OF SERVICE: 04/27/2020 SUBJECTIVE: Going for an ERCP, rule out any ductal problem for his E coli sepsis. [place] to be cholangitis by Infectious Disease. Pulmonary decker, he said he is not short of breath. OBJECTIVE: VITAL SIGNS: Temperature respiratory rate 18, pulse 80. CHEST: No wheezing or crackles. CARDIAC: Normal S1, S2. No gallops. ABDOMEN: No masses. LABORATORY DATA: Unremarkable. ASSESSMENT: Escherichia coli sepsis, rule out cholangitis, underlying congestive heart failure, chronic obstructive pulmonary disease. PLAN: No changes in present treatment. We will follow. Job ID: [id number]
--- NOTE | 2020-04-27 11:55 | RAD ---
EXAM: ERCP HISTORY: Cholelithiasis COMPARISON: CT abdomen 04/22/2020 FINDINGS: Limited intraoperative fluoroscopic views were taken during a an ERCP. The common bile duct is normal in caliber without filling defect. No leakage from the common bile duct. No abnormality of the intrahepatic bile ducts. IMPRESSION: Unremarkable ERCP
[2020-04-27] MEDS ORDERED: Ondansetron HCl/PF 4 MG/2 ML Vial IVP PRN (12:03)
[2020-04-27] MEDS ORDERED: Promethazine HCl 25 MG/ML VIAL IM PRN (12:03)
[2020-04-27] MEDS ORDERED: Promethazine HCl 25 MG/ML VIAL SLOW IVP PRN (12:03)
[2020-04-27] MEDS: Aspirin Chewable 81 MG TAB PO SCH (13:14)
[2020-04-27] MEDS: Amiodarone 200 MG TAB PO SCH (13:15)
[2020-04-27] MEDS: Spironolactone 25 MG TAB PO SCH (13:15)
[2020-04-27] MEDS: Apixaban 2.5 MG TAB PO SCH ×2 (13:15→21:27)
[2020-04-27] MEDS: Gabapentin 300 MG CAP PO SCH ×2 (13:15→21:27)
[2020-04-27] MEDS: AcetaZOLAMIDE 250 MG TAB PO SCH (13:15)
--- NOTE | 2020-04-27 14:54 | PDOC.HOSPP ---
- Subjective Encounter Date: 04/27/20 Encounter Time: 16:00 Subjective: Patient back from ERCP, report pending. Patient without abdominal pain. Ambulating well. Off Dobutamine. Feeling well and eager to go home soon. - Objective Vital Signs & Weight: Vital Signs (12 hours) Temp Pulse Ox 04/27/20 11:16 98 F 04/27/20 08:00 99 04/27/20 07:19 98.2 F 04/27/20 03:42 97.8 F Weight Weight 169 lb 9.6 oz Most Recent Monitor Data Heart Rate from ECG 79 NIBP 108/68 NIBP BP-Mean 81 Respiration from ECG 12 SpO2 96 I&O: 04/26/20 04/27/20 04/28/20 06:59 06:59 06:59 Intake Total 1310 1870 Output Total 2285 1775 Balance -975 95 Result Diagrams: 04/27/20 04:30 04/27/20 04:30 Additional Labs: Accuchecks 04/27/20 04/27/20 04/27/20 12:17 10:33 06:01 POC Glucose 117 H 108 109 04/26/20 04/26/20 20:39 16:41 POC Glucose 133 H 132 H Hospitalist ROS - Review of Systems Constitutional: denies: fever, chills Respiratory: denies: cough, shortness of breath Cardiovascular: denies: chest pain Gastrointestinal: denies: nausea, vomiting, abdominal pain - Medication Medications: Active Medications Generic Name Dose Route Start Last Admin Trade Name Freq PRN Reason Stop Dose Admin Acetaminophen 650 mg 04/23/20 20:02 04/26/20 21:12 Tylenol PO 650 mg Q6H PRN Administration Headache/Fever or Pain Acetazolamide 250 mg 04/27/20 09:00 04/27/20 13:15 Diamox PO 250 mg DAILY FUNMI Administration Amiodarone HCl 200 mg 04/23/20 09:00 04/27/20 13:15 Cordarone PO 200 mg DAILY FUNMI Administration Apixaban 2.5 mg 04/22/20 21:00 04/27/20 13:15 Eliquis PO 2.5 mg BID FUNMI Administration Aspirin 81 mg 04/23/20 09:00 04/27/20 13:14 Aspirin Chewable PO 81 mg DAILY FUNMI Administration Gabapentin 300 mg 04/22/20 21:00 04/27/20 13:15 Neurontin PO 300 mg BID FUNMI Administration Meropenem 1 gm/ Device 50 mls @ 100 mls/hr 04/22/20 22:00 04/27/20 06:11 IVPB 50 mls Q8HR FUNMI Administration Insulin Human Lispro 0 units 04/22/20 13:53 04/24/20 06:12 Humalog SC 2 units .MODERATE SLIDING SC PRN Administration Moderate Correctional Scale Levothyroxine Sodium 50 mcg 04/26/20 06:00 04/27/20 06:11 Synthroid PO 50 mcg 0600 FUNMI Administration Sertraline HCl 25 mg 04/23/20 09:00 04/27/20 13:15 Zoloft PO 25 mg DAILY FUNMI Administration Sodium Chloride 10 ml 04/26/20 09:00 04/27/20 13:21 Flush - Normal Saline IVF Not Given Q12HR FUNMI Spironolactone 25 mg 04/26/20 08:00 04/27/20 13:15 Aldactone PO 25 mg QAM-WM FUNMI Administration - Exam General Appearance: NAD, awake alert ENT: moist mucosa Heart: RRR, no murmur, no gallops, no rubs Respiratory: CTAB, no wheezes, no rales, no ronchi Gastrointestinal: soft, non-tender, non-distended, normal bowel sounds Psychiatric: normal affect, normal behavior, A&O x 3 Hosp A/P (1) Septic shock due to Escherichia coli Code(s): A41.51 - SEPSIS DUE TO ESCHERICHIA COLI [E. COLI]; R65.21 - SEVERE SEPSIS WITH SEPTIC SHOCK Status: Acute (2) CAD (coronary artery disease) Code(s): I25.10 - ATHSCL HEART DISEASE OF [place] CORONARY ARTERY W/O ANG PCTRS Status: Chronic Qualifiers: (3) COPD (chronic obstructive pulmonary disease) Status: Chronic Qualifiers: COPD type: chronic bronchitis (4) Chronic anticoagulation Code(s): Z79.01 - [employer] (CURRENT) USE OF 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 Status: Chronic (5) Chronic stage c diastolic heart failure Code(s): I50.32 - CHRONIC DIASTOLIC (CONGESTIVE) HEART FAILURE Status: Chronic (6) Gout Code(s): M10.9 - GOUT, UNSPECIFIED Status: Chronic Qualifiers: Gout site: multiple sites Encounter type: subsequent encounter Presence of tophus: without tophus (7) HTN (hypertension) Code(s): I10 - ESSENTIAL (PRIMARY) HYPERTENSION Status: Chronic Qualifiers: (8) Moderate aortic regurgitation Code(s): I35.1 - NONRHEUMATIC AORTIC (VALVE) INSUFFICIENCY Status: Chronic (9) Rheumatoid arthritis Code(s): M06.9 - RHEUMATOID ARTHRITIS, UNSPECIFIED Status: Chronic Qualifiers: (10) Severe tricuspid regurgitation Code(s): I07.1 - RHEUMATIC TRICUSPID INSUFFICIENCY Status: Chronic - Plan Septic shock with E. coli bacteremia of unclear source Continue Meropenem IV antibiotics. Leukocytosis is resolved. Septic shock resolved. Dobutamine discontinued, can restart at 2.5 mcg/kg/min if SBP drops below 95 ID suggested that cholangitis could be one of the possibilities of causing sepsis in this patient. GI was consulted. who believes the pneumobilia is chronic in nature compared to previous studies and does not point to a new infection. Biliary source for the E. coli cannot be ruled out. ERCP done today to evaluate for this possibility, results pending. STEPHANIE negative for vegetations on the defibrillator leads. Will discuss disposition with consultants and planned antibiotic regimen.
[2020-04-27] MEDS: Ursodiol 300 MG CAP PO SCH (17:35)
[2020-04-28 05:07] LABS: Band 8 % (5-11); Eosinophils 3 % (0-10); Hemoglobin 10.6 g/dL (14.0-18.0); Lymphocytes 20 % (21-51); MDiff Complete? YES; Mean Corpuscular HGB CONC 32.6 g/dL (32.0-36.0); Mean Corpuscular Hemoglobin 28.8 pg (27.0-31.0); Mean Corpuscular Volume 88.5 fL (78.0-98.0); Mean Platelet Volume 8.4 fL (7.4-10.4); Monocytes 6 % (0-10); Neutrophil 63 % (42-75); Platelet Count 252 thou/uL (130-400); Platelet Morphology Comment Appears Adequate; RBC Distribution Width 17.2 % (11.5-14.5); Red Blood Cell (RBC) Count 3.67 mill/uL (4.70-6.10); White Blood Cell (WBC) Count 13.4 thou/uL (4.8-10.8)
[2020-04-28] MEDS: Levothyroxine Sodium 50 MCG TAB PO SCH (05:18)
[2020-04-28] MEDS: MEROPENEM 1 GM/50 ML 1 GM in Premix Bag 1 BAG IVPB SCH ×3 (05:19→21:59)
[2020-04-28 05:22] LABS: ALT (SGPT) 17 U/L (8-55); AST (SGOT) 12 U/L (5-34); Albumin 3.2 g/dL (3.4-4.8); Alkaline Phosphatase 66 U/L (40-110); Anion Gap 11 mmol/L (10-20); BUN (Urea Nitrogen) 35 mg/dL (8.4-25.7); Bilirubin, Total 0.5 mg/dL (0.2-1.2); Calc. Creatinine Clearance 44 mL/min (70-130); Carbon Dioxide 30 mmol/L (23-31); Chloride 99 mmol/L (98-107); Estimated GFR-MDRD 50; Globulin 3.2 g/dL (2.4-3.5); Glucose 131 mg/dL (83-110); Magnesium 2.4 mg/dL (1.6-2.6); Potassium 4.3 mmol/L (3.5-5.1); Protein, Total 6.4 g/dL (5.8-8.1); Sodium 136 mmol/L (136-145)
[2020-04-28] MEDS: AcetaZOLAMIDE 250 MG TAB PO SCH (08:24)
[2020-04-28] MEDS: Spironolactone 25 MG TAB PO SCH (08:24)
[2020-04-28] MEDS: Amiodarone 200 MG TAB PO SCH (08:24)
[2020-04-28] MEDS: Ursodiol 300 MG CAP PO SCH ×2 (08:24→16:19)
[2020-04-28] MEDS: Apixaban 2.5 MG TAB PO SCH ×2 (08:24→21:59)
[2020-04-28] MEDS: Gabapentin 300 MG CAP PO SCH ×2 (08:24→21:59)
[2020-04-28] MEDS: Aspirin Chewable 81 MG TAB PO SCH (08:24)
--- NOTE | 2020-04-28 08:52 | OP ---
DATE OF PROCEDURE: 04/27/2020 PROCEDURE PERFORMED: Endoscopic retrograde cholangiopancreatography with sphincterotomy. PREPROCEDURE DIAGNOSES: 1. 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 2. History of choledocholithiasis in 2017 for which he had an endoscopic retrograde cholangiopancreatography and removal of stones. ANESTHESIA: TIVA and also the patient had Indocin suppository and IV fluids to help prevent post ERCP pancreatitis. POSTPROCEDURE DIAGNOSES: 1. Normal-appearing ampulla with evidence of previous sphincterotomy. No overt bile draining. 2. Occlusion cholangiogram revealed no evidence of filling defects, intrahepatic common bile duct or common hepatic duct. The duct was swept 3 times with 18 mm balloon. The balloon was able to pass without difficulty. 3. No evidence of filling defects in the common bile duct or stones. 4. No evidence of abnormal liver enzymes that would indicate that biliary source would account for his recurrent bouts of gram-negative sepsis. 5. Sphincterotomy was enlarged empirically. PROCEDURE IN DETAIL: After the patient was informed of the risks, benefits, and possible complications of endoscopy including perforation, reaction to medication, aspiration, informed consent was obtained. The patient was brought to the endoscopy suite, where the patient was sedated in gradual fashion. Once he was comfortable, a bite block was placed inside the orifice after he was intubated and placed in a prone position. The side-viewing duodenoscope was advanced to the esophagus, stomach, and the second and third portion of duodenum where the ampulla was brought into view. Ampulla was cannulated freely and exchange made for a balloon. There was air in the biliary tree. The balloon was inflated. Occlusion cholangiogram was performed. The duct was swept about 4 times. The duct was about 15 mm in diameter. No overt stones or abnormalities were identified. The inflated balloon came through without any difficulty. The sphincterotomy was enlarged empirically. Clear bile was noted to be draining. Again, no filling defects were seen in the common bile duct. RECOMMENDATIONS: Advance diet as tolerated. If there is some concern he is getting some type of Sump syndrome where bacteria is migrating up in the biliary tree, it may be reasonable to add Ursodiol once daily 300 mg to his medication regimen to keep the bile flowing more freely. There is no hard evidence to back that may be effective, but in light of his recurrent episodes of sepsis without signs of UTIs, it would be reasonable to consider this. Other possibilities to consider would be renal or prostatic colonization. Job ID: [id number]
--- NOTE | 2020-04-28 10:04 | PRG ---
DATE OF SERVICE: 04/28/2020 SUBJECTIVE: gentleman. Pulmonary decker, he is doing well. OBJECTIVE: VITAL SIGNS: Temperature 98, pulse 99, respirations 17, saturation is 98% on room air, and blood pressure . CHEST: No wheezing or crackles. CARDIAC: Normal S1, S2. No gallops. ABDOMEN: No masses. LABORATORY DATA: Creatinine 1.3. His maximum temperature is 98. Escherichia coli sepsis felt to be cholangitis. Chronic obstructive pulmonary disease, congestive heart failure, stable. Home any time as per Infectious Disease. Job ID: [id number]
--- NOTE | 2020-04-28 10:22 | PRG ---
DATE OF SERVICE: 04/28/2020 SERVICE: Advanced Heart Failure Consulting Cardiology. SUBJECTIVE: Mr. Rogers had a good day. He went to the ERCP. He went through the ERCP process without any complication. He did complain of some mouth pain and sore throat from the scope. Afterwards, he was able to eat and he was able to ambulate on a walker. He wants to know when he can go home. He says he is breathing well. No shortness of breath. There is no palpitation, chest pain, or syncope. REVIEW OF SYSTEMS: GENERAL: There is no fever, chills, productive cough. HEENT: There is no changes in vision, hearing, or swallowing. PULMONARY: Please see HPI. CARDIAC: Please see HPI. GI: Eating well. : He said he had some delayed urination after the procedure. MUSCULOSKELETAL: He has chronic lower back pain. INTEGUMENT: He has a new bruise spot at the left upper arm that came up overnight. NEUROLOGIC: There are no new focal deficits or weaknesses. MEDICATIONS: His current cardiac medications include 1. Acetazolamide 250 mg daily. 2. Amiodarone 200 mg daily. 3. Apixaban 2.5 mg b.i.d. 4. Aspirin 80 mg daily. 5. Levothyroxine 50 mcg daily. 6. Spironolactone 25 mg daily. 7. He is also on meropenem 1 g daily. PHYSICAL EXAMINATION: His telemetry was reviewed. He has paced rhythm, with lower rate limited at 80s. VITAL SIGNS: Current vitals are heart rate 80, blood pressure 111/62. GENERAL: He is alert, conversational, sitting comfortably in bed and also very talkative. HEENT: EOMI. Oropharynx is benign with moist mucosa. NECK: His neck veins, JVP is approximately 10 cm. PULMONARY: There is good air movement bilaterally. Clear to auscultation bilaterally. CARDIAC: Regular rate and rhythm with 2/6 holosystolic murmur at the apex with radiation to the left axilla. There is 2/6 diastolic murmur at the right lower sternal border and there is also 2/6 crescendo-decrescendo murmur in the right upper sternal borders. Consequently, he has mitral regurgitation, aortic regurgitation, and aortic stenosis. ABDOMEN: Soft, nontender, distended. Positive bowel sounds. EXTREMITIES: Lower extremities are without edema. Warm and well perfused and his dorsalis pedis is palpable. LABORATORY DATA: He has increasing white cell count of 13.4 thousand, so this is a bit increased. Hemoglobin 10.6, platelets 252. His chemistry, sodium 136, potassium 4.3, BUN 35, this is a bit decreased. Creatinine 1.37, this is a bit increased. His albumin at 3.2. ASSESSMENT: 85-year-old gentleman is in a steady state from recovering from E coli septic shock. Right now, we do not have a good source since the ERCP was negative. It is presumed that something that he ate or this is unknown that caused E Coli sepsis. With this we continue to need to follow him. It is little bit concerning his white cell count has increased back to 13.4. This could be due to the ERCP. Consequently , we will need to watch him for at least a day or more to make sure that he does not have returning infection. For now, with adequate blood pressure, I will attempt to add back on his carvedilol. If his systolic blood pressure drops again, we will need to restart dobutamine. Please see the following for my recommendation. RECOMMENDATION: 1. Start carvedilol at 3.125 mg p.o. b.i.d., hold if systolic blood pressure is 90 or lower. 2. Stop acetazolamide tomorrow, by then he would have resolve of contraction alkalosis. 3. If his systolic blood pressure drops below 90 on a sustained basis then restart dobutamine 2.5 mcg/kg/minute. 4. We will leave up to the primary team and Dr. Clements for his antibiotics. I believe he will need likely a two week antibiotic course, with his unknown source of infection. It has been a pleasure taking care of Mr. Donny Rogers, if you have any questions, please give me a call. Job ID: [id number] [facility]
--- NOTE | 2020-04-28 12:28 | PRG ---
DATE OF SERVICE: 04/28/2020 SUBJECTIVE: Mr. Rogers has no complaints. No abdominal pain, nausea, vomiting, diarrhea, constipation, or blood in the stool. OBJECTIVE: VITAL SIGNS: Temperature 98.3, pulse 93, blood pressure 111/62. GENERAL: He is in no acute distress. Alert and oriented x3. LUNGS: Clear to auscultation bilaterally. HEART: Regular rate and rhythm without murmur. ABDOMEN: Soft, nontender, and nondistended. Bowel sounds are present. EXTREMITIES: No lower extremity edema. IMPRESSION: 1. Escherichia coli sepsis. ERCP yesterday showed no biliary obstruction or retained stone. The sphincterotomy was extended. There was no evidence of complication from the procedure or bleeding. It does not appear that his sepsis originated from his bile duct. His liver tests have remained normal. 2. Congestive heart failure, chronic obstructive pulmonary disease, and coronary artery disease. RECOMMENDATIONS: 1. He is on meropenem. 2. He has been restarted on apixaban and aspirin. Because he did have extension of the sphincterotomy, we will need to monitor for melena or overt GI bleeding. Currently, there is no evidence of any complication from his sphincterotomy. 3. I will sign off for now. Please call if GI can be of assistance. Job ID: [id number]
[2020-04-28] MEDS: HumaLOG 300 UNITS/3 ML VIAL SC PRN (12:37)
--- NOTE | 2020-04-28 13:45 | PDOC.HOSPP ---
- Subjective Encounter Date: 04/28/20 Encounter Time: 10:20 Subjective: pt marcy rg, like to go home. lives w.. and children. talk to RNSean WYNN - Objective Vital Signs & Weight: Vital Signs (12 hours) Temp Pulse Resp BP BP Pulse Ox 04/28/20 12:50 98.9 F 90 21 H 100/57 L 95 04/28/20 08:21 98.3 F 93 17 111/62 93 L 04/28/20 03:55 97.9 F 84 18 100/54 L 95 Weight Weight 170 lb 3 oz Most Recent Monitor Data Heart Rate from ECG 79 NIBP 108/68 NIBP BP-Mean 81 Respiration from ECG 12 SpO2 96 I&O: 04/27/20 04/28/20 04/29/20 06:59 06:59 06:59 Intake Total 1870 600 Output Total 1775 350 Balance 95 250 Result Diagrams: 04/28/20 04:47 04/28/20 04:47 Additional Labs: Accuchecks 04/28/20 04/28/20 04/27/20 10:27 06:14 20:24 POC Glucose 191 H 154 H 172 H 04/27/20 17:08 POC Glucose 127 H Hospitalist ROS - Medication Medications: Active Medications Generic Name Dose Route Start Last Admin Trade Name Morales PRN Reason Stop Dose Admin Acetaminophen 650 mg 04/23/20 20:02 04/26/20 21:12 Tylenol PO 650 mg Q6H PRN Administration Headache/Fever or Pain Amiodarone HCl 200 mg 04/23/20 09:00 04/28/20 08:24 Cordarone PO 200 mg DAILY FUNMI Administration Apixaban 2.5 mg 04/22/20 21:00 04/28/20 08:24 Eliquis PO 2.5 mg BID FUNMI Administration Aspirin 81 mg 04/23/20 09:00 04/28/20 08:24 Aspirin Chewable PO 81 mg DAILY FUNMI Administration Gabapentin 300 mg 04/22/20 21:00 04/28/20 08:24 Neurontin PO 300 mg BID FUNMI Administration Meropenem 1 gm/ Device 50 mls @ 100 mls/hr 04/22/20 22:00 04/28/20 05:19 IVPB 50 mls Q8HR FUNMI Administration Insulin Human Lispro 0 units 04/22/20 13:53 04/28/20 12:37 Humalog SC 2 units .MODERATE SLIDING SC PRN Administration Moderate Correctional Scale Sertraline HCl 25 mg 04/23/20 09:00 04/28/20 08:24 Zoloft PO 25 mg DAILY FUNMI Administration Sodium Chloride 10 ml 04/26/20 09:00 04/28/20 08:24 Flush - Normal Saline IVF 10 ml Q12HR FUNMI Administration Spironolactone 25 mg 04/26/20 08:00 04/28/20 08:24 Aldactone PO 25 mg QAM-WM FUNMI Administration Ursodiol 300 mg 04/27/20 17:00 04/28/20 08:24 Actigal PO 300 mg BID-WM FUNMI Administration - Exam General - other findings: R. IJ central line, capped. Eye: PERRL ENT: normocephalic atraumatic Neck: supple Heart: RRR Respiratory: CTAB, normal chest expansion Gastrointestinal: soft, normal bowel sounds Neurological: no focal deficits Psychiatric: A&O x 3 Hosp A/P - Plan (1) Septic shock due to Escherichia coli Code(s): A41.51 - SEPSIS DUE TO ESCHERICHIA COLI [E. COLI]; R65.21 - SEVERE SEPSIS WITH SEPTIC SHOCK Status: Acute (2) CAD (coronary artery disease) Code(s): I25.10 - ATHSCL HEART DISEASE OF [place] CORONARY ARTERY W/O ANG PCTRS Status: Chronic Qualifiers: (3) COPD (chronic obstructive pulmonary disease) Status: Chronic Qualifiers: COPD type: chronic bronchitis (4) Chronic anticoagulation Code(s): Z79.01 - FPC (CURRENT) USE OF 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 Status: Chronic (5) Chronic stage c diastolic heart failure Code(s): I50.32 - CHRONIC DIASTOLIC (CONGESTIVE) HEART FAILURE Status: Chronic (6) Gout Code(s): M10.9 - GOUT, UNSPECIFIED Status: Chronic Qualifiers: Gout site: multiple sites Encounter type: subsequent encounter Presence of tophus: without tophus (7) HTN (hypertension) Code(s): I10 - ESSENTIAL (PRIMARY) HYPERTENSION Status: Chronic Qualifiers: (8) Moderate aortic regurgitation Code(s): I35.1 - NONRHEUMATIC AORTIC (VALVE) INSUFFICIENCY Status: Chronic (9) Rheumatoid arthritis Code(s): M06.9 - RHEUMATOID ARTHRITIS, UNSPECIFIED Status: Chronic Qualifiers: (10) Severe tricuspid regurgitation Code(s): I07.1 - RHEUMATIC TRICUSPID INSUFFICIENCY Status: Chronic Septic shock with E. coli bacteremia of unclear source---resolved Continue Meropenem IV antibiotics. s/p Dobutamine ID suggested that cholangitis could be one of the possibilities of causing sepsis in this patient. GI was consulted. pneumobilia is chronic in nature compared to previous studies and does not point to a new infection. Biliary source for the E. coli cannot be ruled out. ERCP w..spinterectomy--no filling defect or biliary stone - ursodiol -STEPHANIE negative for vegetations on the defibrillator leads. -back on ASA and eliquis -monitor atleast o/n to make sure no overt bleed [s/p ERCP] dispo -- when specialists clears him. & need to check cbc in am. lives w.. and children.
[2020-04-28] MEDS: Carvedilol 3.125 MG TAB PO SCH (21:59)
[2020-04-29 04:18] LABS: Band 4 % (5-11); Eosinophils 1 % (0-10); Hemoglobin 9.8 g/dL (14.0-18.0); Lymphocytes 8 % (21-51); MDiff Complete? YES; Mean Corpuscular HGB CONC 31.3 g/dL (32.0-36.0); Mean Corpuscular Hemoglobin 28.1 pg (27.0-31.0); Mean Corpuscular Volume 89.8 fL (78.0-98.0); Mean Platelet Volume 8.3 fL (7.4-10.4); Metamyelocyte 2 % (0-0); Monocytes 7 % (0-10); Neutrophil 78 % (42-75); Platelet Count 230 thou/uL (130-400); Platelet Morphology Comment Appears Adequate; RBC Distribution Width 17.3 % (11.5-14.5); White Blood Cell (WBC) Count 12.4 thou/uL (4.8-10.8)
[2020-04-29 04:37] LABS: ALT (SGPT) 72 U/L (8-55); AST (SGOT) 55 U/L (5-34); Albumin 3.2 g/dL (3.4-4.8); Alkaline Phosphatase 228 U/L (40-110); Anion Gap 13 mmol/L (10-20); BUN (Urea Nitrogen) 32 mg/dL (8.4-25.7); Bilirubin, Total 0.5 mg/dL (0.2-1.2); Calc. Creatinine Clearance 40 mL/min (70-130); Calcium 8.8 mg/dL (7.8-10.44); Carbon Dioxide 26 mmol/L (23-31); Chloride 100 mmol/L (98-107); Estimated GFR-MDRD 44; Globulin 3.1 g/dL (2.4-3.5); Glucose 177 mg/dL (83-110); Potassium 4.4 mmol/L (3.5-5.1); Protein, Total 6.3 g/dL (5.8-8.1); Sodium 135 mmol/L (136-145)
[2020-04-29] MEDS ORDERED: Levothyroxine Sodium 75 MCG TAB PO SCH (06:00)
[2020-04-29] MEDS: MEROPENEM 1 GM/50 ML 1 GM in Premix Bag 1 BAG IVPB SCH ×3 (06:19→21:32)
[2020-04-29] MEDS: Levothyroxine Sodium 75 MCG TAB PO SCH (08:46)
[2020-04-29] MEDS: Spironolactone 25 MG TAB PO SCH (08:47)
[2020-04-29] MEDS: Ursodiol 300 MG CAP PO SCH ×2 (08:47→18:14)
[2020-04-29] MEDS: Amiodarone 200 MG TAB PO SCH (08:47)
[2020-04-29] MEDS: Gabapentin 300 MG CAP PO SCH ×2 (08:47→21:31)
[2020-04-29] MEDS: Aspirin Chewable 81 MG TAB PO SCH (08:47)
[2020-04-29] MEDS: Apixaban 2.5 MG TAB PO SCH ×2 (08:47→21:31)
[2020-04-29] MEDS: Carvedilol 3.125 MG TAB PO SCH (08:47)
[2020-04-29] MEDS ORDERED: Cosyntropin 250 MCG VIAL SLOW IVP SCH (09:45)
--- NOTE | 2020-04-29 10:38 | PRG ---
DATE OF SERVICE: 04/29/2020 SERVICE: Advanced Heart Failure Cardiology Consulting Service. SUBJECTIVE: Mr. Rogers had a pretty good day. He was able to walk short distances with a walker. He did not have any shortness of breath or palpitations. He believes that he is good enough to go home. Carvedilol was titrated to 6.25 mg twice a day. He was able to maintain systolic blood pressure. REVIEW OF SYSTEMS: GENERAL: There is no fever, chills, productive cough. HEENT: There is no change in vision, hearing, or swallowing. PULMONARY: Please see HPI. CARDIAC: There are no chest pain, palpitations, or syncope. GI: He is able to eat well. There is no nausea, vomiting, or diarrhea. : He is urinating well. He says he has been urinating a lot. MUSCULOSKELETAL: He has chronic lower back pain. He has a left shoulder pain. INTEGUMENT: He has a bruising on the left upper arm. NEUROLOGIC: There are no new focal deficits or weaknesses. MEDICATIONS: His current medications include; 1. Amiodarone 200 mg daily. 2. Apixaban 2.5 mg b.i.d. 3. Aspirin 81 mg daily. 4. Carvedilol at 3.125 mg b.i.d. 5. Gabapentin 300 mg b.i.d. 6. Levothyroxine at 75 mg p.o. daily. 7. Meropenem 1 g daily. 8. Spironolactone at 25 mg daily. 9. Actigall 200 mg twice a day. PHYSICAL EXAMINATION: Telemetry was reviewed. He is mainly in paced rhythm, 80 beats per minute. There are occasional PVCs. Otherwise, there was no concerning arrhythmias. VITAL SIGNS: His current vital signs are heart rate paced at 80, blood pressure 99/50. His I's and O's for the last 24 hours recorded as 1400 in and 1175 out. GENERAL: He is alert, conversational, reclining comfortably in the bed. HEENT: Show EOMI. Oropharynx is benign with moist mucosa. NECK: He has central line in the right neck. His JVP is roughly about 10 cm. PULMONARY: There is good air movement bilaterally. There are no crackles. However, there is a little bit of wheeze. CARDIAC: Regular rate and rhythm. Normal S1, S2. There is 2/6 holosystolic murmur at the apex with radiation to the left axilla. There is also 1/6 diastolic murmur at right sternal border. So consequently, he has mitral regurgitation and also aortic regurgitation murmur. ABDOMEN: Distended, but soft, nontender. Positive bowel sounds. EXTREMITIES: Lower extremities are warm and well perfused. He has positive dorsalis pedal pulses. LABORATORY VALUES: CBC shows white cell count 12.4, hemoglobin 9.8, platelets 230. His chemistry shows sodium 135, potassium 4.4, chloride 100, bicarb is 26. BUN 32, creatinine 1.51. He has a mildly elevated alkaline phosphatase at 228, mildly elevated AST at 55 and ALT at 72. However, his total bilirubin is only 0.5. ASSESSMENT: 85-year-old gentleman is recovering well from his Escherichia coli septic shock. However, his creatinine has slowly crept up to 1.51. He has some elevated liver enzymes, AST of 55, ALT of 72, and alkaline phosphatase 228. His white cell count is still above 10,000. This could be due to his ERCP, but it should resolve. With his wheezing and lowest blood pressure, I will stop carvedilol for now since he has COPD now with wheezing. This should help his blood pressure to recover a little bit to perfuse kidneys. He may need a little bit of fluids with dobutamine augmentation as needed. I think he will need at least one more day to make sure his white cell count comes down toward normal and his liver enzymes are trending the right way. With the low blood pressure, 3 bouts of septic shock and being on steroids off and on at different times, it will also be useful to check for adrenal insufficiency. Please see the following for my recommendations. RECOMMENDATIONS: 1. Stop carvedilol for now. We can start Toprol-XL later for better rhythm control. 2. Please do Cortrosyn stimulation test that consist of draw baseline cortisol level and then do a Cortrosyn 250 mcg IV one dose, then collect cortisol at 30 minutes later and 60 minutes later. 3. We will need to do a followup set of a comprehensive metabolic panel tomorrow morning to make sure that things are clear. 4. We will await for Infectious Disease senior wind energy consultant to recommend an antibiotic treatment plan. It has been a pleasure taking care of Mr. Donny Rogers. If you have any questions, please give me a call. Job ID: [id number]
--- NOTE | 2020-04-29 12:48 | PRG ---
DATE OF SERVICE: 04/29/2020 SUBJECTIVE: This morning, he is awake, alert, and responsive. He wants to go home. No shortness of breath. OBJECTIVE: VITAL SIGNS: Temperature 98, pulse 88, respiratory rate 16, sats 96% on room air, blood pressure 104/59. CHEST: No wheezing or crackles. CARDIAC: Normal S1, S2. No gallops. ABDOMEN: No masses. LABORATORY DATA: His creatinine is elevated at 1.5. AST and ALT slightly elevated. Alkaline phosphatase is 228. ASSESSMENT AND PLAN: 1. Cholangitis, status post ERCP. 2. Chronic obstructive pulmonary disease, stable. 3. Congestive heart failure, stable. Pulmonary decker, nothing to add, we will sign off. Home when okay with Infectious Disease. Job ID: [id number]
--- NOTE | 2020-04-29 13:08 | PDOC.HOSPP ---
- Subjective Encounter Date: 04/29/20 Encounter Time: 09:20 Subjective: pt is anxious to go home, says his grand dtr may come and help him at home. he has twice a week nurse to come to help. he needs meropenum 1 gm tid for 2 wks -s-top date may 06. talk to CM and likely to be a facility placement. - Objective Vital Signs & Weight: Vital Signs (12 hours) Temp Pulse Resp BP Pulse Ox 04/29/20 08:45 97.8 F 88 16 104/59 L 97 04/29/20 08:00 97 04/29/20 04:00 98.0 F 80 18 99/50 L 97 Weight Weight 172 lb 2 oz Most Recent Monitor Data Heart Rate from ECG 79 NIBP 108/68 NIBP BP-Mean 81 Respiration from ECG 12 SpO2 96 I&O: 04/28/20 04/29/20 04/30/20 06:59 06:59 06:59 Intake Total 600 1400 Output Total 350 1175 Balance 250 225 Result Diagrams: 04/29/20 03:55 04/29/20 03:55 Additional Labs: Accuchecks 04/29/20 04/29/20 04/28/20 10:47 05:33 20:51 POC Glucose 111 H 154 H 137 H 04/28/20 16:36 POC Glucose 134 H Hospitalist ROS - Medication Medications: Active Medications Generic Name Dose Route Start Last Admin Trade Name Freq PRN Reason Stop Dose Admin Acetaminophen 650 mg 04/23/20 20:02 04/26/20 21:12 Tylenol PO 650 mg Q6H PRN Administration Headache/Fever or Pain Amiodarone HCl 200 mg 04/23/20 09:00 04/29/20 08:47 Cordarone PO 200 mg DAILY FUNMI Administration Apixaban 2.5 mg 04/22/20 21:00 04/29/20 08:47 Eliquis PO 2.5 mg BID FUNMI Administration Aspirin 81 mg 04/23/20 09:00 04/29/20 08:47 Aspirin Chewable PO 81 mg DAILY FUNMI Administration Cosyntropin 250 mcg 04/29/20 09:45 04/29/20 10:49 Cortrosyn SLOW IVP 04/29/20 21:00 250 mcg WILLCALL FUNMI Administration Gabapentin 300 mg 04/22/20 21:00 04/29/20 08:47 Neurontin PO 300 mg BID FUNMI Administration Meropenem 1 gm/ Device 50 mls @ 100 mls/hr 04/22/20 22:00 04/29/20 06:19 IVPB 50 mls Q8HR FUNMI Administration Insulin Human Lispro 0 units 04/22/20 13:53 04/28/20 12:37 Humalog SC 2 units .MODERATE SLIDING SC PRN Administration Moderate Correctional Scale Levothyroxine Sodium 75 mcg 04/29/20 08:00 04/29/20 08:46 Synthroid PO 75 mcg 0800 FUNMI Administration Sertraline HCl 25 mg 04/23/20 09:00 04/29/20 08:47 Zoloft PO 25 mg DAILY FUNMI Administration Sodium Chloride 10 ml 04/26/20 09:00 04/29/20 08:47 Flush - Normal Saline IVF 10 ml Q12HR FUNMI Administration Spironolactone 25 mg 04/26/20 08:00 04/29/20 08:47 Aldactone PO 25 mg QAM-WM FUNMI Administration Ursodiol 300 mg 04/27/20 17:00 04/29/20 08:47 Actigal PO 300 mg BID-WM FNUMI Administration - Exam General Appearance: NAD, awake alert Eye: PERRL ENT: normocephalic atraumatic Neck: supple Heart: RRR Respiratory: CTAB, normal chest expansion Gastrointestinal: soft, normal bowel sounds Neurological: no focal deficits Psychiatric: A&O x 3 Hosp A/P - Plan (1) Septic shock due to Escherichia coli Code(s): A41.51 - SEPSIS DUE TO ESCHERICHIA COLI [E. COLI]; R65.21 - SEVERE SEPSIS WITH SEPTIC SHOCK Status: Acute (2) CAD (coronary artery disease) Code(s): I25.10 - ATHSCL HEART DISEASE OF [place] CORONARY ARTERY W/O ANG PCTRS Status: Chronic Qualifiers: (3) COPD (chronic obstructive pulmonary disease) Status: Chronic Qualifiers: COPD type: chronic bronchitis (4) Chronic anticoagulation Code(s): Z79.01 - [place] SE[place] (CURRENT) USE OF 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 Status: Chronic (5) Chronic stage c diastolic heart failure Code(s): I50.32 - CHRONIC DIASTOLIC (CONGESTIVE) HEART FAILURE Status: Chronic (6) Gout Code(s): M10.9 - GOUT, UNSPECIFIED Status: Chronic Qualifiers: Gout site: multiple sites Encounter type: subsequent encounter Presence of tophus: without tophus (7) HTN (hypertension) Code(s): I10 - ESSENTIAL (PRIMARY) HYPERTENSION Status: Chronic Qualifiers: (8) Moderate aortic regurgitation Code(s): I35.1 - NONRHEUMATIC AORTIC (VALVE) INSUFFICIENCY Status: Chronic (9) Rheumatoid arthritis Code(s): M06.9 - RHEUMATOID ARTHRITIS, UNSPECIFIED Status: Chronic Qualifiers: (10) Severe tricuspid regurgitation Code(s): I07.1 - RHEUMATIC TRICUSPID INSUFFICIENCY Status: Chronic Septic shock with E. coli bacteremia of unclear source---resolved Continue Meropenem IV antibiotics. s/p Dobutamine ID suggested that cholangitis could be one of the possibilities of causing sepsis in this patient. GI was consulted. pneumobilia is chronic in nature compared to previous studies and does not point to a new infection. Biliary source for the E. coli cannot be ruled out. ERCP w..spinterectomy--no filling defect or biliary stone - ursodiol -STEPHANIE negative for vegetations on the defibrillator leads. -back on ASA and eliquis -monitor atleast o/n to make sure no overt bleed [s/p ERCP] dispo -- when specialists clears him. & need to check cbc in am. lives w.. and children. grand dtr may come and help him at home. he has twice a week nurse to come to help. he needs meropenum 1 gm tid for 2 wks -s-top date may 06. talk to CM and likely to be a facility placement.
[2020-04-29] MEDS: HumaLOG 300 UNITS/3 ML VIAL SC PRN (17:17)
--- NOTE | 2020-04-29 17:43 | PRG ---
DATE OF SERVICE: 04/29/2020 SUBJECTIVE: The patient denies any headaches. No visual symptoms. No abdominal pain. No vomiting. No diarrhea. OBJECTIVE: VITAL SIGNS: Showed normal temperature, BP 117/58, pulse 80, respirations 16, and O2 saturation 96. GENERAL: Does not appear in distress. LUNGS: Symmetric, clear breath sounds. CARDIAC: S1 and S2, regular rate. ABDOMEN: Soft, not distended. EXTREMITIES: Moves all extremities equally. LABORATORY DATA: White cell count is 12.4, hemoglobin 9.8, platelets 230, with 78% neutrophils. Sodium 135, creatinine 1.51. AST 55, ALT 72, alkaline phosphatase 228, albumin 3.2. The patient had a repeat sphincterotomy. Nothing was found that was remarkable in the ERCP otherwise. ASSESSMENT AND DISCUSSION: Ischemic cardiomyopathy, chronic obstructive pulmonary disease, AICD in place, episode of cholangitis in the past due to Enterobacter aerogenes with pigmented stones, managed with papillotomy, now with recurrence of abdominal pain in epigastric area, bacteremia due to Escherichia coli with presumption of another episode of cholangitis, although we do not have an equivocal evidence that proves that beyond reasonable doubt, but that seems to be the more tenable hypothesis, so he is going to continue with IV therapy for the organism, it is a quite susceptible organism, he does have allergies to various medications though, so he is going to continue with that, but hopefully with the extension of the sphincterotomy, the risks of recurrence of cholangitis will be less. Job ID: [id number]
[2020-04-30 04:38] LABS: Hemoglobin 9.1 g/dL (14.0-18.0); Mean Corpuscular HGB CONC 31.8 g/dL (32.0-36.0); Mean Corpuscular Hemoglobin 28.6 pg (27.0-31.0); Mean Corpuscular Volume 89.9 fL (78.0-98.0); Mean Platelet Volume 8.7 fL (7.4-10.4); Platelet Count 234 thou/uL (130-400); RBC Distribution Width 17.1 % (11.5-14.5); Red Blood Cell (RBC) Count 3.19 mill/uL (4.70-6.10); White Blood Cell (WBC) Count 10.6 thou/uL (4.8-10.8)
[2020-04-30 04:39] LABS: Band 2 % (5-11); Eosinophils 1 % (0-10); Lymphocytes 13 % (21-51); MDiff Complete? YES; Monocytes 5 % (0-10); Neutrophil 79 % (42-75); Platelet Morphology Comment Appears Adequate; RBC Morphology Normal
[2020-04-30 04:56] LABS: ALT (SGPT) 46 U/L (8-55); AST (SGOT) 21 U/L (5-34); Albumin 3.2 g/dL (3.4-4.8); Alkaline Phosphatase 185 U/L (40-110); Anion Gap 10 mmol/L (10-20); BUN (Urea Nitrogen) 35 mg/dL (8.4-25.7); Bilirubin, Total 0.3 mg/dL (0.2-1.2); Calc. Creatinine Clearance 46 mL/min (70-130); Carbon Dioxide 29 mmol/L (23-31); Chloride 103 mmol/L (98-107); Estimated GFR-MDRD 52; Globulin 3.2 g/dL (2.4-3.5); Glucose 171 mg/dL (83-110); Magnesium 2.4 mg/dL (1.6-2.6); Protein, Total 6.4 g/dL (5.8-8.1); Sodium 138 mmol/L (136-145)
[2020-04-30] MEDS: MEROPENEM 1 GM/50 ML 1 GM in Premix Bag 1 BAG IVPB SCH ×3 (06:03→20:16)
[2020-04-30] MEDS: HumaLOG 300 UNITS/3 ML VIAL SC PRN ×2 (06:12→20:46)
[2020-04-30] MEDS: Spironolactone 25 MG TAB PO SCH (07:47)
[2020-04-30] MEDS: Apixaban 2.5 MG TAB PO SCH ×2 (07:47→20:11)
[2020-04-30] MEDS: Amiodarone 200 MG TAB PO SCH (07:47)
[2020-04-30] MEDS: Ursodiol 300 MG CAP PO SCH ×2 (07:48→18:30)
[2020-04-30] MEDS: Gabapentin 300 MG CAP PO SCH ×2 (07:48→20:11)
[2020-04-30] MEDS: Aspirin Chewable 81 MG TAB PO SCH (07:48)
[2020-04-30] MEDS: Levothyroxine Sodium 75 MCG TAB PO SCH (07:48)
--- NOTE | 2020-04-30 13:27 | PDOC.HOSPP ---
- Subjective Encounter Date: 04/30/20 Encounter Time: 11:20 Subjective: pt quite anxious to go home. need PICC and remove central line. either home IV abx vs.. facility but it has been decided on 26th PM as family members familiar w.. iV abx infusion that plan to send him home after abx has been arranged. CM today would be able to help us with the home abx arrangement. Meanwhile will get replace the central line w.. PICC. - Objective Vital Signs & Weight: Vital Signs (12 hours) Temp Pulse Pulse Pulse Resp BP BP 04/30/20 11:53 98.1 F 80 20 04/30/20 09:03 79 86 114/57 L 117/63 04/30/20 07:44 98.4 F 80 18 04/30/20 03:24 97.8 F 80 16 BP BP Pulse Ox 04/30/20 11:53 121/58 L 97 04/30/20 09:03 04/30/20 07:44 117/60 97 04/30/20 03:24 115/58 L 99 Weight Weight 173 lb Most Recent Monitor Data Heart Rate from ECG 79 NIBP 108/68 NIBP BP-Mean 81 Respiration from ECG 12 SpO2 96 I&O: 04/29/20 04/30/20 05/01/20 06:59 06:59 06:59 Intake Total 1400 1130 Output Total 1175 1800 Balance 225 -670 Result Diagrams: 04/30/20 03:43 04/30/20 03:43 Additional Labs: Accuchecks 04/30/20 04/30/20 04/29/20 10:39 05:38 20:27 POC Glucose 154 H 180 H 182 H 04/29/20 17:17 POC Glucose 189 H Hospitalist ROS - Medication Medications: Active Medications Generic Name Dose Route Start Last Admin Trade Name Freq PRN Reason Stop Dose Admin Acetaminophen 650 mg 04/23/20 20:02 04/26/20 21:12 Tylenol PO 650 mg Q6H PRN Administration Headache/Fever or Pain Amiodarone HCl 200 mg 04/23/20 09:00 04/30/20 07:47 Cordarone PO 200 mg DAILY FUNMI Administration Apixaban 2.5 mg 04/22/20 21:00 04/30/20 07:47 Eliquis PO 2.5 mg BID FUNMI Administration Aspirin 81 mg 04/23/20 09:00 04/30/20 07:48 Aspirin Chewable PO 81 mg DAILY FUNMI Administration Gabapentin 300 mg 04/22/20 21:00 04/30/20 07:48 Neurontin PO 300 mg BID FUNMI Administration Meropenem 1 gm/ Device 50 mls @ 100 mls/hr 04/22/20 22:00 04/30/20 06:03 IVPB 50 mls Q8HR FUNMI Administration Insulin Human Lispro 0 units 04/22/20 13:53 04/30/20 06:12 Humalog SC 2 units .MODERATE SLIDING SC PRN Administration Moderate Correctional Scale Levothyroxine Sodium 75 mcg 04/29/20 08:00 04/30/20 07:48 Synthroid PO 75 mcg 0800 FUNMI Administration Sertraline HCl 25 mg 04/23/20 09:00 04/30/20 07:47 Zoloft PO 25 mg DAILY FUNMI Administration Sodium Chloride 10 ml 04/26/20 09:00 04/30/20 07:48 Flush - Normal Saline IVF 10 ml Q12HR FUNMI Administration Spironolactone 25 mg 04/26/20 08:00 04/30/20 07:47 Aldactone PO 25 mg QAM-WM FUNMI Administration Ursodiol 300 mg 04/27/20 17:00 04/30/20 07:48 Actigal PO 300 mg BID-WM FUNMI Administration - Exam General Appearance: NAD Eye: PERRL Eye - other findings: R-IJ ENT: normocephalic atraumatic Neck: supple Heart: RRR Respiratory: CTAB, normal chest expansion Gastrointestinal: soft, normal bowel sounds Neurological: no focal deficits Hosp A/P - Plan (1) Septic shock due to Escherichia coli Code(s): A41.51 - SEPSIS DUE TO ESCHERICHIA COLI [E. 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 (CURRENT) USE OF 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 Status: Chronic (5) Chronic stage c diastolic heart failure Code(s): I50.32 - CHRONIC DIASTOLIC (CONGESTIVE) HEART FAILURE Status: Chronic (6) Gout Code(s): M10.9 - GOUT, UNSPECIFIED Status: Chronic Qualifiers: Gout site: multiple sites Encounter type: subsequent encounter Presence of tophus: without tophus (7) HTN (hypertension) Code(s): I10 - ESSENTIAL (PRIMARY) HYPERTENSION Status: Chronic Qualifiers: (8) Moderate aortic regurgitation Code(s): I35.1 - NONRHEUMATIC AORTIC (VALVE) INSUFFICIENCY Status: Chronic (9) Rheumatoid arthritis Code(s): M06.9 - RHEUMATOID ARTHRITIS, UNSPECIFIED Status: Chronic Qualifiers: (10) Severe tricuspid regurgitation Code(s): I07.1 - RHEUMATIC TRICUSPID INSUFFICIENCY Status: Chronic Septic shock with E. coli bacteremia of unclear source---resolved Continue Meropenem IV antibiotics. s/p Dobutamine ID suggested that cholangitis could be one of the possibilities of causing sepsis in this patient. GI was consulted. pneumobilia is chronic in nature compared to previous studies and does not point to a new infection. Biliary source for the E. coli cannot be ruled out. ERCP w..spinterectomy--no filling defect or biliary stone - ursodiol -STEPHANIE negative for vegetations on the defibrillator leads. -back on ASA and eliquis -monitor atleast o/n to make sure no overt bleed [s/p ERCP] dispo -- when specialists clears him. & need to check cbc in am. lives w.. and children. grand dtr may come and help him at home. he has twice a week nurse to come to help. he needs meropenum 1 gm tid for 2 wks -s-top date may 06. talk to CM and likely to be a facility placement. need PICC and remove central line. either home IV abx vs.. facility but it has been decided on 26th PM as family members familiar w.. iV abx infusion that plan to send him home after abx has been arranged. CM today would be able to help us with the home abx arrangement. Meanwhile will get replace the central line w.. PICC.
--- NOTE | 2020-04-30 14:20 | PRG ---
DATE OF SERVICE: 04/30/2020 This is from [facility]. SUBJECTIVE: Mr. Donny Rogers had a good day. He was able to ambulate on a walker. He is able to live independently in terms of going to the bathroom, taking care of himself while in the hospital. He does not have any complaints except that he wanted to go home. REVIEW OF SYSTEMS: GENERAL: There is no fever, chills, or productive cough. HEENT: There is no change in vision, hearing, or swallowing. PULMONARY: He is not short of breath. He is breathing well on room air. CARDIAC: He does not have any chest pains, palpitations, or syncope. GI: He says he is a little bit constipated, but he did have a bowel movement. : He is urinating well. MUSCULOSKELETAL: He has chronic lower back pain and also left shoulder pain. INTEGUMENT: He has bruised spot on the left upper arm. NEUROLOGIC: There are no new focal deficits or weaknesses. MEDICATIONS: His current medications include: 1. Amiodarone 200 mg daily. 2. Apixaban 2.5 mg b.i.d. 3. Aspirin 81 mg daily. 4. Levothyroxine 75 mcg daily. 5. He is on meropenem 1 g and also spironolactone 25 mg daily. PHYSICAL EXAMINATION: Telemetry was reviewed. He is in paced rhythm. There is occasional PVC. There are no concerning arrhythmias. VITAL SIGNS: Heart rate paced at 80 and blood pressure 121/58. His 24-hour I' s and O's are negative 670 mL out. GENERAL: The patient is alert and conversational, resting comfortably in bed. HEENT: Show EOMI. Oropharynx is benign with moist mucosa. NECK: There is a central line in the right internal jugular vein. JVP roughly around 9 cm. PULMONARY: There is good air movement bilaterally. There are no rales. CARDIAC: Regular rate and rhythm with S1 and S2, there is 3/6 holosystolic murmur at the apex with radiation to the left axilla. There is 2/6 diastolic murmur at right and left lower sternal border. There is also a crescendo-decrescendo systolic murmur at 2/6 at right upper sternal border. There are no gallops. ABDOMEN: Distended, soft, and nontender. Positive bowel sounds. EXTREMITIES: Lower extremities are without edema. Positive dorsalis pedis pulses. LABORATORY VALUES: Hemoglobin at 9.1 and white cell count 10.6, is decreased. His chemistry shows sodium 138, potassium 4.0, BUN 35, creatinine 1.32, his alkaline phosphatase has decreased down to 185. His total bilirubin, AST, and ALT are normal. His BNP is at 225. ASSESSMENT: 85-year-old gentleman is recovering well from E coli septic shock. He is now waiting for line placement for outpatient IV antibiotics. He appears near euvolemic and is well compensated as he can be. He does have [place] Heart Association stage C and also [place] Heart class III heart failure with reduced ejection fraction. With history of multiple PVCs and atrial fibrillation and not tolerating carvedilol, then we will switch from carvedilol to Toprol-XL today. Otherwise, he is only waiting on line placement for IV antibiotics to go home. Please see the following for my recommendations. RECOMMENDATIONS: 1. Start Toprol-XL 12.5 mg daily, this may need to be titrated up to 25 mg daily. 2. Start torsemide 20 mg p.o. every other day. This will keep his edema at bay. 3. If he has good chemistry and continued stability, then we may be able to add Entresto in the near future. 4. We will wait for the Primary Team to place PICC and then for outpatient antibiotic infusion to be set up. It has been a pleasure taking care of Mr. Donny Rogers. If you have any questions, please give me a call. Job ID: [id number] [facility]
[2020-04-30] MEDS ORDERED: MEROPENEM 1 GM/50 ML 1 GM in Premix Bag 1 BAG IVPB SCH (15:15)
[2020-05-01 04:28] LABS: Band 8 % (5-11); Lymphocytes 17 % (21-51); MDiff Complete? YES; Mean Corpuscular HGB CONC 31.6 g/dL (32.0-36.0); Mean Corpuscular Hemoglobin 28.5 pg (27.0-31.0); Mean Corpuscular Volume 90.3 fL (78.0-98.0); Mean Platelet Volume 8.3 fL (7.4-10.4); Metamyelocyte 2 % (0-0); Monocytes 11 % (0-10); Neutrophil 62 % (42-75); Platelet Count 237 thou/uL (130-400); Platelet Morphology Comment Appears Adequate; RBC Distribution Width 17.2 % (11.5-14.5); Red Blood Cell (RBC) Count 3.16 mill/uL (4.70-6.10); White Blood Cell (WBC) Count 11.5 thou/uL (4.8-10.8)
[2020-05-01 04:33] LABS: ALT (SGPT) 34 U/L (8-55); AST (SGOT) 13 U/L (5-34); Albumin 3.2 g/dL (3.4-4.8); Alkaline Phosphatase 155 U/L (40-110); Anion Gap 12 mmol/L (10-20); BUN (Urea Nitrogen) 31 mg/dL (8.4-25.7); Bilirubin, Total 0.3 mg/dL (0.2-1.2); Calc. Creatinine Clearance 45 mL/min (70-130); Calcium 8.8 mg/dL (7.8-10.44); Carbon Dioxide 24 mmol/L (23-31); Chloride 106 mmol/L (98-107); Estimated GFR-MDRD 50; Globulin 3.2 g/dL (2.4-3.5); Glucose 187 mg/dL (83-110); Potassium 4.6 mmol/L (3.5-5.1); Protein, Total 6.4 g/dL (5.8-8.1); Sodium 137 mmol/L (136-145)
[2020-05-01] MEDS: MEROPENEM 1 GM/50 ML 1 GM in Premix Bag 1 BAG IVPB SCH ×3 (05:25→22:21)
[2020-05-01] MEDS: Amiodarone 200 MG TAB PO SCH (08:47)
[2020-05-01] MEDS: Spironolactone 25 MG TAB PO SCH (08:47)
[2020-05-01] MEDS: Apixaban 2.5 MG TAB PO SCH ×2 (08:47→20:04)
[2020-05-01] MEDS: Aspirin Chewable 81 MG TAB PO SCH (08:47)
[2020-05-01] MEDS: Ursodiol 300 MG CAP PO SCH ×2 (08:47→16:00)
[2020-05-01] MEDS: Levothyroxine Sodium 75 MCG TAB PO SCH (08:47)
[2020-05-01] MEDS: Torsemide 20 MG TAB PO SCH (08:47)
[2020-05-01] MEDS: Gabapentin 300 MG CAP PO SCH ×2 (08:47→20:04)
--- NOTE | 2020-05-01 12:48 | PRG ---
DATE OF SERVICE: 05/01/2020 SUBJECTIVE: Mr. Donny Rogers had an excellent day. He feels good. He is able to ambulate without difficulties. From his perspective, he able to walk with a walker to about the nurses station and back. Does not feel short of breath. However, he still has a left upper arm pain from the bruising area. He is able to sleep well. There is no complaint of palpitation, chest pain, or syncope. There are no complaints of edema. REVIEW OF SYSTEMS: GENERAL: There is no fever, chills, or productive cough. HEENT: There is no change in vision, hearing, or swallowing. PULMONARY: See HPI. CARDIAC: Please see HPI. GI: He is eating well, able to have a bowel movement, but he still feels a bit constipated. : He is urinating well. MUSCULOSKELETAL: He has chronic lower back pain and shoulder pain. INTEGUMENT: He still has a left upper arm pain and a bruising spot. NEUROLOGIC: There are no new focal deficits or weaknesses. CURRENT CARDIAC MEDICATIONS: Include 1. Amiodarone 200 mg daily. 2. Apixaban 2.5 mg b.i.d. 3. Aspirin 81 mg daily. 4. Levothyroxine at 75 mcg daily. 5. Toprol-XL 12.5 mg. 6. Spironolactone 25 mg daily. PHYSICAL EXAMINATION: His telemetry is reviewed. He is mainly paced rhythm at 80 beats per minute. There are occasional PVCs. VITAL SIGNS: Shows that his latest vitals, heart rate 80, is paced, blood pressure 109/70. GENERAL: He is alert, conversational, sitting comfortably in bed, eating lunch. There is no acute distress. He is energetic. He is looks well. HEENT: Show EOMI. Oropharynx is benign with moist mucosa. LUNGS: Good air movement bilaterally. There are no crackles bilateral. HEART: Shows normal rate and rhythm with normal S1, S2, there is 2/6 holosystolic murmur at the apex with radiation to the left axilla. There is 2/6 diastolic murmur at the right lower sternal border. There is also 2/6 crescendo decrescendo systolic murmur at the right upper sternal border. So consequently, he has mitral regurgitation, aortic regurgitation and also aortic stenosis murmurs. LEFT SHOULDER - ARM: large ecchymosis at left upper arm, left shoulder edema ABDOMEN: Soft, nontender, it is distended. Positive bowel sounds. EXTREMITIES: His lower extremity is without edema. Positive dorsalis pedis pulses bilaterally. LABORATORY DATA: Shows sodium 137, potassium 4.6, BUN 31, and creatinine at 1.36. His white cell count is a little higher today at 11.5, hemoglobin at 9 and platelets 237. His chemistry and his cortisol stimulation test were reviewed. The basal cortisol value is 9.1, at 30 minutes post stimulation it went up to 16.9, so that is a 7.8 gain, and then at 60 minutes later he went up to 22.7, so that is about 13.6 gain and 90 minutes later he went up to 25, so that is about 16 gain. So in 1 hour, he has less than 20. So in 1 hour, he only had about 13 gain, so he has adrenal insufficiency, but to a small extent. This could explain his lower blood pressures. We will probably need to supplement this. ASSESSMENT: 85-year-old gentleman is recovering well from E coli septic shock. He has mild degree of adrenal insufficiency, so this will probably need to be supplemented and follow over time. He also has hypothyroidism and that is now being treated. His TSH is also too high. He does have heart failure with reduced ejection fraction. Currently, he does not need much diuretics, only just about 3 times a week would do it. 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 He currently resides in [place] Heart Association stage C and [place] Heart Association class III heart failure with reduced ejection fraction. From a cardiac perspective, he is stable. He can be discharged any time. However, we are waiting on having the antibiotics infusion set up at home number and we should address his mild adrenal insufficiency because in continued days it could be a problem. RECOMMENDATIONS: 1. Increase Toprol-XL to 25 mg daily, this is to help control his arrhythmia. 2. Do arterial Doppler ultrasound of the left upper arm. 3. Also do venous Doppler ultrasound left upper arm to make sure that he has does not have any problems in the left upper arm since he has a large bruise there. 4. We will do a low-dose supplementation for adrenal insufficiency, hydrocortisone 10 mg in a.m. and 5 mg in p.m. 5. We may need to add fludrocortisone, but we will hold off that for now. It has been a pleasure taking care of Mr. Donny Rogers. If you have any questions, please give me a call. Job ID: [id number] [facility]
--- NOTE | 2020-05-01 13:28 | PDOC.HOSPP ---
- Subjective Encounter Date: 05/01/20 Encounter Time: 10:30 Subjective: pt more comfortable of being staying here further; Left upper arm bruise and pain, picc line to be done -saturday. talk to Lamin Barahona. - Objective Vital Signs & Weight: Vital Signs (12 hours) Temp Pulse Resp BP BP Pulse Ox 05/01/20 11:53 98.0 F 79 18 104/58 L 99 05/01/20 07:37 98.8 F 83 16 109/70 97 05/01/20 03:59 97.6 F 80 18 113/60 100 Weight Weight 174 lb 9.6 oz Most Recent Monitor Data Heart Rate from ECG 79 NIBP 108/68 NIBP BP-Mean 81 Respiration from ECG 12 SpO2 96 I&O: 04/30/20 05/01/20 05/02/20 06:59 06:59 06:59 Intake Total 1130 1350 Output Total 1800 390 Balance -670 960 Result Diagrams: 05/01/20 04:01 05/01/20 04:01 Additional Labs: Accuchecks 05/01/20 05/01/20 04/30/20 10:19 05:39 20:14 POC Glucose 156 H 165 H 191 H 04/30/20 16:41 POC Glucose 149 H Hospitalist ROS - Medication Medications: Active Medications Generic Name Dose Route Start Last Admin Trade Name Freq PRN Reason Stop Dose Admin Acetaminophen 650 mg 04/23/20 20:02 04/26/20 21:12 Tylenol PO 650 mg Q6H PRN Administration Headache/Fever or Pain Amiodarone HCl 200 mg 04/23/20 09:00 05/01/20 08:47 Cordarone PO 200 mg DAILY FUNMI Administration Apixaban 2.5 mg 04/22/20 21:00 05/01/20 08:47 Eliquis PO 2.5 mg BID FUNMI Administration Aspirin 81 mg 04/23/20 09:00 05/01/20 08:47 Aspirin Chewable PO 81 mg DAILY FUNMI Administration Gabapentin 300 mg 04/22/20 21:00 05/01/20 08:47 Neurontin PO 300 mg BID FUNMI Administration Meropenem 1 gm/ Device 50 mls @ 100 mls/hr 04/30/20 22:00 05/01/20 05:25 IVPB 50 mls Q8HR FUNMI Administration Insulin Human Lispro 0 units 04/22/20 13:53 04/30/20 20:46 Humalog SC 2 units .MODERATE SLIDING SC PRN Administration Moderate Correctional Scale Levothyroxine Sodium 75 mcg 04/29/20 08:00 05/01/20 08:47 Synthroid PO 75 mcg 0800 FUNMI Administration Sertraline HCl 25 mg 04/23/20 09:00 05/01/20 08:47 Zoloft PO 25 mg DAILY FUNMI Administration Sodium Chloride 10 ml 04/26/20 09:00 05/01/20 08:47 Flush - Normal Saline IVF 10 ml Q12HR FUNMI Administration Spironolactone 25 mg 04/26/20 08:00 05/01/20 08:47 Aldactone PO 25 mg QAM-WM FUNMI Administration Torsemide 20 mg 05/01/20 09:00 05/01/20 08:47 Demadex PO 20 mg Q2D@0900 FUNMI Administration Ursodiol 300 mg 04/27/20 17:00 05/01/20 08:47 Actigal PO 300 mg BID-WM FUNMI Administration - Exam General Appearance: NAD, awake alert ENT: normocephalic atraumatic Neck: supple Heart: RRR Respiratory: CTAB, normal chest expansion Gastrointestinal: soft, normal bowel sounds Extremities - other findings: left U arm -- bruise Neurological: no focal deficits Psychiatric: normal affect, normal behavior, A&O x 3 Hosp A/P - Plan (1) Septic shock due to Escherichia coli Code(s): A41.51 - SEPSIS DUE TO ESCHERICHIA COLI [E. COLI]; R65.21 - SEVERE SEPSIS WITH SEPTIC SHOCK Status: Acute (2) CAD (coronary artery disease) Code(s): I25.10 - ATHSCL HEART DISEASE OF [place] CORONARY ARTERY W/O ANG PCTRS Status: Chronic Qualifiers: (3) COPD (chronic obstructive pulmonary disease) Status: Chronic Qualifiers: COPD type: chronic bronchitis (4) Chronic anticoagulation Code(s): Z79.01 - ORE SMELTER (CURRENT) USE OF 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 Status: Chronic (5) Chronic stage c diastolic heart failure Code(s): I50.32 - CHRONIC DIASTOLIC (CONGESTIVE) HEART FAILURE Status: Chronic (6) Gout Code(s): M10.9 - GOUT, UNSPECIFIED Status: Chronic Qualifiers: Gout site: multiple sites Encounter type: subsequent encounter Presence of tophus: without tophus (7) HTN (hypertension) Code(s): I10 - ESSENTIAL (PRIMARY) HYPERTENSION Status: Chronic Qualifiers: (8) Moderate aortic regurgitation Code(s): I35.1 - NONRHEUMATIC AORTIC (VALVE) INSUFFICIENCY Status: Chronic (9) Rheumatoid arthritis Code(s): M06.9 - RHEUMATOID ARTHRITIS, UNSPECIFIED Status: Chronic Qualifiers: (10) Severe tricuspid regurgitation Code(s): I07.1 - RHEUMATIC TRICUSPID INSUFFICIENCY Status: Chronic Septic shock with E. coli bacteremia of unclear source---resolved Continue Meropenem IV antibiotics. s/p Dobutamine ID suggested that cholangitis could be one of the possibilities of causing sepsis in this patient. GI was consulted. pneumobilia is chronic in nature compared to previous studies and does not point to a new infection. Biliary source for the E. coli cannot be ruled out. ERCP w..spinterectomy--no filling defect or biliary stone - ursodiol -STEPHANIE negative for vegetations on the defibrillator leads. -back on ASA and eliquis -monitor atleast o/n to make sure no overt bleed [s/p ERCP] . grand dtr may come and help him at home. he has twice a week nurse to come to help. he needs meropenum 1 gm tid for 2 wks -s-top date may 06. talk to CM and likely to be a facility placement. need PICC and remove central line. either home IV abx vs.. facility but it has been decided on PM as family members familiar w.. iV abx infusion that plan to send him home after abx has been arranged. CM today would be able to help us with the home abx arrangement. Meanwhile replace the central line w.. PICC. 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 CAD/ao regurg s/p HOGSHEAD BUILDER-d placement Ischemic CMY CHF,s tage 3 --low dose diuresis --toprol inc'd to 25mg qd --on eliquis. after Picc placed,a nd home IV abx arranged --plan for dc home w.. home hllth?.
--- NOTE | 2020-05-01 15:17 | ULT ---
LEFT UPPER EXTREMITY VENOUS DUPLEX EXAM: Indications: Left upper extremity pain and edema. Technique: Veins of left upper extremity were evaluated with ultrasound and doppler with color doppler Spectral analysis and compression. FINDINGS: Left internal jugular vein shows normal flow and compression. The left subclavian vein shows normal b lood flow with doppler. The left axillary vein, cephalic vein, basilic vein, basilar vein, ulnar vein, and radial vein were a ll imaged and show normal flow and compression. There is no evidence of venous thrombosis in the left upper extremity. IMPRESSION: Negative left upper extremity venous duplex exam. POS: AGW
--- NOTE | 2020-05-01 15:21 | ULT ---
LEFT UPPER EXTREMITY ARTERIAL DOPPLER: Technique: Arteries evaluated with ultrasound doppler with color doppler and spectral analysis. Indications: Left upper extremity pain and edema. FINDINGS: The left common carotid artery shows normal flow and spectral analysis. Left subclavian artery, axill flores artery, brachial artery, ulnar artery and radial artery all show a normal triphasic waveform with normal blood flow. IMPRESSION: Unremarkable arterial doppler study of left upper extremity. POS: AGW
[2020-05-01] MEDS: Hydrocortisone 10 mg Tablet PO SCH (16:00)
[2020-05-01] MEDS ORDERED: Hydrocortisone 10 mg Tablet PO SCH (21:00)
[2020-05-02 04:10] LABS: Band 1 % (5-11); Eosinophils 1 % (0-10); Hemoglobin 8.4 g/dL (14.0-18.0); Hypochromia SLIGHT = 6-15 cells (100X) (0-5/hpf); Lymphocytes 14 % (21-51); MDiff Complete? YES; Mean Corpuscular HGB CONC 31.2 g/dL (32.0-36.0); Mean Corpuscular Hemoglobin 28.3 pg (27.0-31.0); Mean Corpuscular Volume 90.4 fL (78.0-98.0); Mean Platelet Volume 8.3 fL (7.4-10.4); Monocytes 5 % (0-10); Neutrophil 79 % (42-75); Platelet Count 234 thou/uL (130-400); Platelet Morphology Comment Appears Adequate; RBC Distribution Width 17.1 % (11.5-14.5); Red Blood Cell (RBC) Count 2.96 mill/uL (4.70-6.10); White Blood Cell (WBC) Count 12.7 thou/uL (4.8-10.8)
[2020-05-02 04:20] LABS: ALT (SGPT) 23 U/L (8-55); AST (SGOT) 10 U/L (5-34); Alkaline Phosphatase 130 U/L (40-110); Anion Gap 9 mmol/L (10-20); BUN (Urea Nitrogen) 36 mg/dL (8.4-25.7); Bilirubin, Total 0.2 mg/dL (0.2-1.2); Calc. Creatinine Clearance 39 mL/min (70-130); Calcium 8.5 mg/dL (7.8-10.44); Carbon Dioxide 27 mmol/L (23-31); Chloride 106 mmol/L (98-107); Estimated GFR-MDRD 43; Globulin 2.9 g/dL (2.4-3.5); Glucose 158 mg/dL (83-110); Potassium 4.4 mmol/L (3.5-5.1); Protein, Total 5.9 g/dL (5.8-8.1); Sodium 138 mmol/L (136-145)
[2020-05-02] MEDS: MEROPENEM 1 GM/50 ML 1 GM in Premix Bag 1 BAG IVPB SCH ×3 (05:40→20:56)
[2020-05-02] MEDS ORDERED: Hydrocortisone 10 mg Tablet PO SCH (09:00)
--- NOTE | 2020-05-02 09:23 | SPC ---
Ultrasound and Fluoroscopic guided right upper extremity PICC placement HISTORY: Sepsis/infection. Patient needs long-term IV antibiotics. FINDINGS: Informed consent obtained prior to the procedure. An appropriate access site was determined with ultrasound guidance. The area was then meticulously pr epped and draped in usual sterile fashion. Skin overlying the right basilic vein anesthetized with 1% buffered lidocaine. Utilizing direct sonog raphic guidance, vascular access is obtained via the right basilic vein, and an 0.018in guidewire was advanced to the cavoatrial junction. Intravascular length is calculated at 40 cm, and the PICC is cut accordingly. Needle is removed and replaced with a peel-away sheath. The PICC was advanced over the wire. Wire and peel-away sheath were removed. The tip of the catheter overlies the cavoatrial junction. The catheter was accessed and aspirated/flushed easily. Exposure data: 0.2 minutes of fluoroscopic time 1828 mGy centimeter squared FINDINGS: Technically successful placement of a 40 centimeter single lumen 5 [place] right upper extremity PICC line. IMPRESSION: Successful ultrasound guided placement of a right upper extremity PICC.
[2020-05-02] MEDS: Gabapentin 300 MG CAP PO SCH ×2 (09:40→19:38)
[2020-05-02] MEDS: Spironolactone 25 MG TAB PO SCH (09:40)
[2020-05-02] MEDS: Amiodarone 200 MG TAB PO SCH (09:40)
[2020-05-02] MEDS: Levothyroxine Sodium 75 MCG TAB PO SCH (09:40)
[2020-05-02] MEDS: Hydrocortisone 10 mg Tablet PO SCH ×2 (09:40→17:03)
[2020-05-02] MEDS: Ursodiol 300 MG CAP PO SCH ×2 (09:41→17:03)
[2020-05-02] MEDS: Apixaban 2.5 MG TAB PO SCH ×2 (10:01→19:38)
[2020-05-02] MEDS: Aspirin Chewable 81 MG TAB PO SCH (10:02)
[2020-05-02] MEDS ORDERED: Sodium Chloride 0.9% 1,000 ML IV SCH (11:45)
--- NOTE | 2020-05-02 12:16 | PRG ---
DATE OF SERVICE: 05/02/2020 SUBJECTIVE: Mr. Donny Rogers had a good day. He was able to ambulate down the urban on a walker unassisted. He said he had significantly increased urine output since the diuretics. However, he did not tell the nurse and the amount of volume output was not recorded. However, he still complains of left upper shoulder pain. He said that the pain started with the left upper shoulder and then it drifted down to his left upper arm and now he has a large ecchymosis on the left upper arm and he says this is painful. He cannot really do much with it. He is asking for help with this. REVIEW OF SYSTEMS: GENERAL: There is no fever, chills, productive cough. HEENT: There is no change in vision, hearing, or swallowing. PULMONARY: He is breathing easy. No complaint of shortness of breath, difficulty breathing. CARDIAC: There is no palpitations, syncope or chest pains. GI: He is eating well, a little bit constipated, but he is making bowel movements. : He is urinating well. MUSCULOSKELETAL: Please see HPI and also chronic low back pain. INTEGUMENT: There is no skin breakdown. NEUROLOGIC: There are no new focal weaknesses or deficits. CURRENT CARDIAC MEDICATIONS: Include 1. Amiodarone 200 mg daily. 2. Apixaban 2.5 mg b.i.d. 3. Aspirin 81 mg daily. 4. Toprol-XL 25 mg daily. 5. Meropenem at 1 g. 6. Hydrocortisone 10 mg in the morning, 5 mg in the afternoon for adrenal insufficiency. PHYSICAL EXAMINATION: His telemetry was reviewed. It is mainly A paced V paced, rate at 80. There is occasional PVC. There is no concerning arrhythmia. VITAL SIGNS: Latest vitals, heart rate 80, blood pressure 129/60. GENERAL: He is alert and conversational, reclining comfortably in bed, not in any acute distress. HEENT: Show EOMI. Oropharynx is benign with moist mucosa. His JVP is about 9 or 10 cm. He has right IJ central line in place. PULMONARY: There is good air movement bilaterally. There is no rales, there is no wheeze. CARDIAC: Regular rate and rhythm with normal S1, S2. There is a 2/6 holosystolic murmur at the apex with radiation to the left axilla. There is 2/6 diastolic murmur at the lower right sternal border. There is also 2/6 crescendo-decrescendo murmur at the right upper sternal border. ABDOMEN: Mildly distended, soft, nontender. Positive bowel sounds. EXTREMITIES: Left upper shoulder, there is left upper shoulder pain and warmth to palpation. There is also large area of ecchymosis approximately 10 cm X 5 cm in the left upper arm. This area is has some erythematous base and painful to palpitation. Lower extremities are without edema. Warm and well perfused. Positive dorsalis pedis pulses bilaterally. LABORATORY DATA: White cell count is increased to 12.7, hemoglobin 8.4, hematocrit at 31, and platelet count 234. His chemistries are sodium 138, potassium 4.4, BUN 36, creatinine 1.56. His alkaline phosphatase has decreased to 130 and total bilirubin is 0.2 is normal. His liver enzyme has essentially normalized. ASSESSMENT: An 85-year-old gentleman is recovering well from his E coli septic shock. He also is being well supplemented with hydrocortisone for adrenal insufficiency. However, he has this new left shoulder pain and ecchymosis. Ultrasound was done. It did not show DVT. Arterial ultrasound was also done in addition to venous ultrasound. There is no arterial defect. Thus, this could be a soft tissue infection, spontaneous bleeding or septic arthritis or a shoulder joint tear, so this will need to be investigated. Please see the following for recommendations. RECOMMENDATIONS: 1. Give normal saline 50 mL/hour for 8 hours to clear creatinine. 2. Please do CT with contrast of shoulder for potential septic arthritis. Repeat for potential septic arthritis. 3. I also recommend to consult Orthopedics to consider to look at the shoulder. 4. Patient has PICC placed already by radiology. So we can pull the right internal jugular central line and use the PICC. 5. We will inform Infectious Disease oracle so[facility] consultant about the new left shoulder finding. Perhaps, he may need a longer course of antibiotics. 6. We will adjust his heart failure medications appropriate tomorrow. It has been a pleasure taking care of Mr. Donny Rogers. If you have any question, please give me a call. Job ID: [id number] [facility]
--- NOTE | 2020-05-02 13:01 | PDOC.HOSPP ---
- Subjective Encounter Date: 05/02/20 Encounter Time: 10:30 Subjective: pt returned from PICC line placement. venous doppler and arterial doppler neg.. for abn on Left shoulder. paln for CT. - Objective Vital Signs & Weight: Vital Signs (12 hours) Temp Pulse Resp BP BP Pulse Ox 05/02/20 12:00 97.9 F 80 20 116/56 L 100 05/02/20 07:42 98.7 F 80 16 129/60 99 05/02/20 07:07 96 05/02/20 03:43 97.6 F 80 18 104/57 L 96 Weight Weight 175 lb Most Recent Monitor Data Heart Rate from ECG 79 NIBP 108/68 NIBP BP-Mean 81 Respiration from ECG 12 SpO2 96 I&O: 05/01/20 05/02/20 05/03/20 06:59 06:59 06:59 Intake Total 1350 1325 Output Total 390 690 Balance 960 635 Result Diagrams: 05/02/20 03:48 05/02/20 03:48 Additional Labs: Accuchecks 05/02/20 05/01/20 05/01/20 05:07 20:18 17:23 POC Glucose 131 H 174 H 163 H Hospitalist ROS - Medication Medications: Active Medications Generic Name Dose Route Start Last Admin Trade Name Freq PRN Reason Stop Dose Admin Acetaminophen 650 mg 04/23/20 20:02 04/26/20 21:12 Tylenol PO 650 mg Q6H PRN Administration Headache/Fever or Pain Amiodarone HCl 200 mg 04/23/20 09:00 05/02/20 09:40 Cordarone PO 200 mg DAILY FUNMI Administration Apixaban 2.5 mg 04/22/20 21:00 05/02/20 10:01 Eliquis PO Not Given BID FUNMI Aspirin 81 mg 04/23/20 09:00 05/02/20 10:02 Aspirin Chewable PO Not Given DAILY FUNMI Gabapentin 300 mg 04/22/20 21:00 05/02/20 09:40 Neurontin PO 300 mg BID FUNMI Administration Hydrocortisone 10 mg 05/02/20 09:00 05/02/20 09:40 Cortef PO 10 mg QAM FUNMI Administration Hydrocortisone 5 mg 05/01/20 17:00 05/01/20 16:00 Cortef PO 5 mg 1700 FUNMI Administration Meropenem 1 gm/ Device 50 mls @ 100 mls/hr 04/30/20 22:00 05/02/20 05:40 IVPB 50 mls Q8HR FUNMI Administration Sodium Chloride 1,000 mls @ 50 mls/hr 05/02/20 11:45 05/02/20 12:41 Normal Saline 0.9% IV 1,000 mls .Q20H FUNMI Administration Insulin Human Lispro 0 units 04/22/20 13:53 04/30/20 20:46 Humalog SC 2 units .MODERATE SLIDING SC PRN Administration Moderate Correctional Scale Levothyroxine Sodium 75 mcg 04/29/20 08:00 05/02/20 09:40 Synthroid PO 75 mcg 0800 FUNMI Administration Metoprolol Succinate 25 mg 05/02/20 09:00 05/02/20 09:41 Toprol Xl PO 25 mg DAILY FUNMI Administration Sertraline HCl 25 mg 04/23/20 09:00 05/02/20 09:40 Zoloft PO 25 mg DAILY FUNMI Administration Sodium Chloride 10 ml 04/26/20 09:00 05/02/20 09:42 Flush - Normal Saline IVF 10 ml Q12HR FUNMI Administration Spironolactone 25 mg 04/26/20 08:00 05/02/20 09:40 Aldactone PO 25 mg QAM-WM FUNMI Administration Torsemide 20 mg 05/01/20 09:00 05/01/20 08:47 Demadex PO 20 mg Q2D@0900 FUNMI Administration Ursodiol 300 mg 04/27/20 17:00 05/02/20 09:41 Actigal PO 300 mg BID-WM FUNMI Administration - Exam General Appearance: NAD, awake alert Eye: PERRL ENT: normocephalic atraumatic Neck: supple Heart: RRR, normal peripheral pulses Respiratory: CTAB, normal chest expansion Gastrointestinal: soft, normal bowel sounds Extremities - other findings: left shoulder -swollen, warm, erythema/echomoses. Psychiatric: A&O x 3 Hosp A/P - Plan (1) Septic shock due to Escherichia coli Code(s): A41.51 - SEPSIS DUE TO ESCHERICHIA COLI [E. COLI]; R65.21 - SEVERE SEPSIS WITH SEPTIC SHOCK Status: Acute (2) CAD (coronary artery disease) Code(s): I25.10 - ATHSCL HEART DISEASE OF [place] CORONARY ARTERY W/O ANG PCTRS Status: Chronic Qualifiers: (3) COPD (chronic obstructive pulmonary disease) Status: Chronic Qualifiers: COPD type: chronic bronchitis (4) Chronic anticoagulation Code(s): Z79.01 - HONEY EXTRACTOR (CURRENT) USE OF 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 Status: Chronic (5) Chronic stage c diastolic heart failure Code(s): I50.32 - CHRONIC DIASTOLIC (CONGESTIVE) HEART FAILURE Status: Chronic (6) Gout Code(s): M10.9 - GOUT, UNSPECIFIED Status: Chronic Qualifiers: Gout site: multiple sites Encounter type: subsequent encounter Presence of tophus: without tophus (7) HTN (hypertension) Code(s): I10 - ESSENTIAL (PRIMARY) HYPERTENSION Status: Chronic Qualifiers: (8) Moderate aortic regurgitation Code(s): I35.1 - NONRHEUMATIC AORTIC (VALVE) INSUFFICIENCY Status: Chronic (9) Rheumatoid arthritis Code(s): M06.9 - RHEUMATOID ARTHRITIS, UNSPECIFIED Status: Chronic Qualifiers: (10) Severe tricuspid regurgitation Code(s): I07.1 - RHEUMATIC TRICUSPID INSUFFICIENCY Status: Chronic Septic shock with E. coli bacteremia of unclear source---resolved Continue Meropenem IV antibiotics. s/p Dobutamine ID suggested that cholangitis could be one of the possibilities of causing sepsis in this patient. GI was consulted. pneumobilia is chronic in nature compared to previous studies and does not point to a new infection. Biliary source for the E. coli cannot be ruled out. ERCP w..spinterectomy--no filling defect or biliary stone - ursodiol -STEPHANIE negative for vegetations on the defibrillator leads. -back on ASA and eliquis -monitor atleast o/n to make sure no overt bleed [s/p ERCP] . grand dtr may come and help him at home. he has twice a week nurse to come to help. he needs meropenum 1 gm tid for 2 wks -s-top date may 06. talk to CM and likely to be a facility placement. need PICC and remove central line. either home IV abx vs.. facility but it has been decided on 26th PM as family members familiar w.. iV abx infusion that plan to send him home after abx has been arranged. CM today would be able to help us with the home abx arrangement. Meanwhile replace the central line w.. PICC. 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 CAD/ao regurg s/p PRESENTATION SPECIALIST-d placement Ischemic CMY CHF,s tage 3 --low dose diuresis --toprol inc'd to 25mg qd --on eliquis. after Picc placed,a nd home IV abx arranged --plan for dc home w.. home hllth?. LUE ecymoses -- venous doppler and arterial doppler neg.. for abn on Left shoulder. plan for CT tomorrow, contrast allergy - prep today --based on the report, will consider ortho c/s and discussion w.. ID, if it is septic arthritis, --also getting sed and cRP. -no fever but mild leukocytosis since PICC placed for merum -- 1gm q8 until may 06 -R-IJ removed.
[2020-05-02] MEDS: HumaLOG 300 UNITS/3 ML VIAL SC PRN (18:18)
--- NOTE | 2020-05-02 19:20 | PRG ---
DATE OF SERVICE: 05/02/2020 SUBJECTIVE: Mr. Rogers while exercising the other day, developed a fairly rapid onset of pain in the lateral aspect of the deltoid and then he noticed an area of bruising extending all the way down to almost to the elbow in the lateral aspect. This was associated with functional limitations. Other than that, he is okay. OBJECTIVE: VITAL SIGNS: His temperature has been normal. BP 115/60, pulse 80, respirations 18. LUNGS: Symmetric air entry. A very faint basilar inspiratory crackles. EXTREMITIES: The left shoulder with an area of bruising in the left arm extending from the deltoid upper segment towards the elbow. There is one area of pinpoint tenderness right at the distal segments of the deltoid muscle. ABDOMEN: Soft, not distended. LABORATORY DATA: White cell count 12.7, hemoglobin 8.4, platelets 234 with a creatinine 1.56, alkaline phosphatase 130, albumin 3.0. ASSESSMENT: Ischemic cardiomyopathy, chronic obstructive pulmonary disease, AICD in place, cholangitis due to Enterobacter and now E. coli, repeat papillotomy and now with fairly rapid onset of pain in the left deltoid associated with functional impairment and wide area of bruising. DISCUSSION: This appeared while he was exercising. It is possible that he ruptured one of the muscle bands involved in the shoulder mechanism such as the deltoid. Since we cannot do an MRI, I probably would consider a CT of the area without contrast to see if the muscles may have a hematoma within the muscle tissue. That should help with tease out what the nature of this problem is. The other consideration would be an infectious process, but that is lower in the range of possibility since patient had been on antimicrobial therapy for a while before this developed and there is a relationship with the extra effort involved in the exercise the patient was carrying out. Job ID: [id number]
[2020-05-02] MEDS: predniSONE 50 MG TAB PO SCH (19:38)
[2020-05-03] MEDS: predniSONE 50 MG TAB PO SCH ×2 (02:48→08:56)
[2020-05-03 04:36] LABS: Band 8 % (5-11); Lymphocytes 8 % (21-51); MDiff Complete? YES; Mean Corpuscular HGB CONC 31.2 g/dL (32.0-36.0); Mean Corpuscular Hemoglobin 28.2 pg (27.0-31.0); Mean Corpuscular Volume 90.4 fL (78.0-98.0); Mean Platelet Volume 8.3 fL (7.4-10.4); Metamyelocyte 2 % (0-0); Monocytes 1 % (0-10); Neutrophil 81 % (42-75); Platelet Count 249 thou/uL (130-400); Platelet Morphology Comment Appears Adequate; RBC Distribution Width 17.2 % (11.5-14.5); Red Blood Cell (RBC) Count 2.83 mill/uL (4.70-6.10)
[2020-05-03 04:48] LABS: ALT (SGPT) 19 U/L (8-55); AST (SGOT) 9 U/L (5-34); Albumin 3.2 g/dL (3.4-4.8); Alkaline Phosphatase 121 U/L (40-110); Anion Gap 11 mmol/L (10-20); BUN (Urea Nitrogen) 34 mg/dL (8.4-25.7); Bilirubin, Total 0.3 mg/dL (0.2-1.2); Calc. Creatinine Clearance 51 mL/min (70-130); Calcium 8.8 mg/dL (7.8-10.44); Carbon Dioxide 24 mmol/L (23-31); Chloride 106 mmol/L (98-107); Estimated GFR-MDRD 57; Glucose 203 mg/dL (83-110); Potassium 4.8 mmol/L (3.5-5.1); Protein, Total 6.2 g/dL (5.8-8.1); Sodium 136 mmol/L (136-145)
[2020-05-03] MEDS: MEROPENEM 1 GM/50 ML 1 GM in Premix Bag 1 BAG IVPB SCH ×3 (05:40→20:56)
[2020-05-03] MEDS: HumaLOG 300 UNITS/3 ML VIAL SC PRN ×3 (05:57→17:58)
[2020-05-03] MEDS ORDERED: diphenhydrAMINE 50 MG CAP PO SCH (08:00)
[2020-05-03] MEDS: Levothyroxine Sodium 75 MCG TAB PO SCH (08:57)
[2020-05-03] MEDS: Amiodarone 200 MG TAB PO SCH (08:59)
[2020-05-03] MEDS ORDERED: Iopamidol 370 76% 100 ML VIAL ONE (09:50)
--- NOTE | 2020-05-03 10:42 | CT ---
CT UPPER EXTREMITY LEFT WITH CONTRAST: DATE: 05/03/2020 9:00 AM. INDICATION: Septic arthritis of the left glenohumeral joint. COMPARISON: None. FINDING: There is subcutaneous reticulation of the outer aspect of the left arm suspicious for cellulitis. No drainable fluid collection is evident. There is muscular atrophy of portions of the deltoid as well as portions of the rotator cuff musculature, particularly the supraspinatus, infraspinatus and teres minor. There is narrowing of the acromiohumeral interval suspicious for a chronic rotator cuff insufficiency. There is prominent erosive change near the bare area of the proximal left humeral head with an associated moderate-sized glenohumeral joint effusion suspicious for changes of septic arthritis. There is diffuse osteopenia. There is some mild erosive change along the posterior superio r margin of the glenoid neck on image 24. No enlarged lymph nodes are evident. There is a pacemaker generator pack overlying the left chest wall. Visualized left lung demonstrates moderate-sized cardio megaly with prominent coronary artery and thoracic aortic calcifications. There is pleural thickening involving the left hemithorax. No acute fracture is demonstrated. IMPRESSION: 1. Findings suspicious for left glenohumeral joint septic arthritis. 2. Subcutaneous reticulation of the soft tissues overlying the left shoulder suspicious for superfici al cellulitis. No periarticular drainable fluid collection is evident. 3. Findings suspicious for chronic rotator cuff insufficiency. 4. Prominent muscular atrophy of the deltoid, supraspinatus, infraspinatus and teres minor. 5. Moderate-sized cardiomegaly with post coronary artery bypass graft change and a dual-lead pacemake r. Transcribed Date/Time: 05/03/2020 10:50 AM
[2020-05-03] MEDS: Ursodiol 300 MG CAP PO SCH ×2 (11:56→16:29)
[2020-05-03] MEDS: Gabapentin 300 MG CAP PO SCH ×2 (11:57→20:55)
[2020-05-03] MEDS: Hydrocortisone 10 mg Tablet PO SCH ×2 (11:57→16:29)
[2020-05-03] MEDS: Torsemide 20 MG TAB PO SCH (11:57)
[2020-05-03] MEDS: Aspirin Chewable 81 MG TAB PO SCH (11:57)
[2020-05-03] MEDS: Spironolactone 25 MG TAB PO SCH (11:57)
[2020-05-03] MEDS: Apixaban 2.5 MG TAB PO SCH ×2 (11:57→20:55)
--- NOTE | 2020-05-03 13:45 | PDOC.HOSPP ---
- Subjective Encounter Date: 05/03/20 Encounter Time: 08:40 Subjective: had long conversation over 10 min. pt outline all his family history starting from grandma and he has tried several RA meds etc.. CT shoulder pending. left shoulder - almost 1/2 upper arm --severe echymoses. - Objective Vital Signs & Weight: Vital Signs (12 hours) Temp Pulse Resp BP Pulse Ox 05/03/20 12:43 98.3 F 75 17 114/58 L 98 05/03/20 08:33 97 05/03/20 07:50 97.5 F L 80 20 131/76 97 05/03/20 04:00 97.8 F 80 20 112/67 97 Weight Weight 175 lb Most Recent Monitor Data Heart Rate from ECG 79 NIBP 108/68 NIBP BP-Mean 81 Respiration from ECG 12 SpO2 96 I&O: 05/02/20 05/03/20 05/04/20 06:59 06:59 06:59 Intake Total 1325 1835 Output Total 690 825 Balance 635 1010 Result Diagrams: 05/03/20 04:09 05/03/20 04:09 Additional Labs: Accuchecks 05/03/20 05/03/20 05/02/20 13:24 05:41 20:40 POC Glucose 260 H 204 H 159 H 05/02/20 17:58 POC Glucose 185 H Hospitalist ROS - Medication Medications: Active Medications Generic Name Dose Route Start Last Admin Trade Name Freq PRN Reason Stop Dose Admin Acetaminophen 650 mg 04/23/20 20:02 04/26/20 21:12 Tylenol PO 650 mg Q6H PRN Administration Headache/Fever or Pain Amiodarone HCl 200 mg 04/23/20 09:00 05/03/20 08:59 Cordarone PO 200 mg DAILY FUNMI Administration Apixaban 2.5 mg 04/22/20 21:00 05/03/20 11:57 Eliquis PO 2.5 mg BID FUNMI Administration Aspirin 81 mg 04/23/20 09:00 05/03/20 11:57 Aspirin Chewable PO 81 mg DAILY FUNMI Administration Gabapentin 300 mg 04/22/20 21:00 05/03/20 11:57 Neurontin PO 300 mg BID FUNMI Administration Hydrocortisone 10 mg 05/02/20 09:00 05/03/20 11:57 Cortef PO 10 mg QAM FUNMI Administration Hydrocortisone 5 mg 05/01/20 17:00 05/02/20 17:03 Cortef PO 5 mg 1700 FUNMI Administration Meropenem 1 gm/ Device 50 mls @ 100 mls/hr 04/30/20 22:00 05/03/20 13:07 IVPB 50 mls Q8HR FUNMI Administration Insulin Human Lispro 0 units 04/22/20 13:53 05/03/20 13:20 Humalog SC 6 units .MODERATE SLIDING SC PRN Administration Moderate Correctional Scale Levothyroxine Sodium 75 mcg 04/29/20 08:00 05/03/20 08:57 Synthroid PO 75 mcg 0800 FUNMI Administration Metoprolol Succinate 25 mg 05/02/20 09:00 05/03/20 08:59 Toprol Xl PO 25 mg DAILY FUNMI Administration Sertraline HCl 25 mg 04/23/20 09:00 05/03/20 11:57 Zoloft PO 25 mg DAILY FUNMI Administration Sodium Chloride 10 ml 04/26/20 09:00 05/03/20 08:55 Flush - Normal Saline IVF 10 ml Q12HR FUNMI Administration Spironolactone 25 mg 04/26/20 08:00 05/03/20 11:57 Aldactone PO 25 mg QAM-WM FUNMI Administration Torsemide 20 mg 05/01/20 09:00 05/03/20 11:57 Demadex PO 20 mg Q2D@0900 FUNMI Administration Ursodiol 300 mg 04/27/20 17:00 05/03/20 11:56 Actigal PO 300 mg BID-WM FUNMI Administration - Exam General Appearance: NAD, awake alert General - other findings: long conversationalist Eye: PERRL ENT: normocephalic atraumatic Neck: supple Heart: RRR Respiratory: CTAB Gastrointestinal: soft, normal bowel sounds Extremities - other findings: 1/2 L upper arm - ecymoses Psychiatric: normal affect, normal behavior, A&O x 3 Hosp A/P - Plan (1) Septic shock due to Escherichia coli Code(s): A41.51 - SEPSIS DUE TO ESCHERICHIA COLI [E. 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 SURFACE (CURRENT) USE OF 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 Status: Chronic (5) Chronic stage c diastolic heart failure Code(s): I50.32 - CHRONIC DIASTOLIC (CONGESTIVE) HEART FAILURE Status: Chronic (6) Gout Code(s): M10.9 - GOUT, UNSPECIFIED Status: Chronic Qualifiers: Gout site: multiple sites Encounter type: subsequent encounter Presence of tophus: without tophus (7) HTN (hypertension) Code(s): I10 - ESSENTIAL (PRIMARY) HYPERTENSION Status: Chronic Qualifiers: (8) Moderate aortic regurgitation Code(s): I35.1 - NONRHEUMATIC AORTIC (VALVE) INSUFFICIENCY Status: Chronic (9) Rheumatoid arthritis Code(s): M06.9 - RHEUMATOID ARTHRITIS, UNSPECIFIED Status: Chronic Qualifiers: (10) Severe tricuspid regurgitation Code(s): I07.1 - RHEUMATIC TRICUSPID INSUFFICIENCY Status: Chronic Septic shock with E. coli bacteremia of unclear source---resolved Continue Meropenem IV antibiotics. s/p Dobutamine ID suggested that cholangitis could be one of the possibilities of causing sepsis in this patient. GI was consulted. pneumobilia is chronic in nature compared to previous studies and does not point to a new infection. Biliary source for the E. coli cannot be ruled out. ERCP w..spinterectomy--no filling defect or biliary stone - ursodiol -STEPHANIE negative for vegetations on the defibrillator leads. -back on ASA and eliquis -monitor atleast o/n to make sure no overt bleed [s/p ERCP] . grand dtr may come and help him at home. he has twice a week nurse to come to help. he needs meropenum 1 gm tid for 2 wks -s-top date may 06. talk to CM and likely to be a facility placement. need PICC and remove central line. either home IV abx vs.. facility but it has been decided on 26th PM as family members familiar w.. iV abx infusion that plan to send him home after abx has been arranged. CM today would be able to help us with the home abx arrangement. Meanwhile replace the central line w.. PICC. 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 CAD/ao regurg s/p AT RISK SPECIALIST-d placement Ischemic CMY CHF,s tage 3 --low dose diuresis --toprol inc'd to 25mg qd --on eliquis. after Picc placed,a nd home IV abx arranged --plan for dc home w.. home hllth?. LUE ecymoses -- venous doppler and arterial doppler neg.. for abn on Left shoulder. plan for CT tomorrow, contrast allergy - prep today --based on the report, will consider ortho c/s and discussion w.. ID, if it is septic arthritis, --also getting sed and cRP. -no fever but mild leukocytosis since PICC placed for merum -- 1gm q8 until may 06 -R-IJ removed. Superficial cellulitis - L. shoulder L - Glenohumoral SEptic arthritis chr Rotator cuff insufficiency - w.. muscles atrophy --cw current merum --further rec.. from ID. --ortho c/s placed.
--- NOTE | 2020-05-03 13:46 | PRG ---
DATE OF SERVICE: 05/03/2020 SUBJECTIVE: Mr. Rogers continues with functional limitation, left upper extremity. No dyspnea. No chest pain. No diarrhea. OBJECTIVE: VITAL SIGNS: He has been afebrile. BP 114/58 and pulse 75. GENERAL: Does not appear in acute distress. SKIN: Area of ecchymosis in the left arm. LUNGS: Symmetric air entry with faint basilar crackles. HEART: S1 and S2, regular rate. ABDOMEN: Soft, not distended. He is voiding in the toilet. I's and O's are slightly anywhere from 600 to 900 positive over the past few days. LABORATORY DATA: White cell count 12.7 yesterday and 13,000 today, hemoglobin 8, and platelets 249. Two sets of blood cultures from 04/22, no growth in 5 days. He had a CT of the left upper extremity, which showed findings that could be consistent with septic arthritis with destructive changes of the glenohumeral joint and effusion. ASSESSMENT AND DISCUSSION: Ischemic cardiomyopathy; chronic obstructive pulmonary disease; rheumatoid arthritis, on Humira in the past; presumed cholangitis due to Enterobacter species and Escherichia coli, repeat papillotomy and now worsening pain left shoulder with the findings in the imaging study noted, so the next step will be to obtain a sample of the fluid and send for routine fungal and mycobacterial cultures in view of his immunosuppressed state and possibility of an opportunistic process. Rheumatoid arthritis can mimic septic arthritis, but he is immunosuppressed, so there is a risk of an infectious process in the left shoulder. He may not correspond to the same organism isolated from the blood cultures and may be a different pathogen. The usual procedure for those types of infections includes joint washout, so we will go ahead and consult Orthopedic Surgery to evaluate his left shoulder. Job ID: [id number]
[2020-05-03 14:12] VITALS: BMI 29.1
[2020-05-03] MEDS: Lidocaine 1% (PF) 30 ML VIAL SC SCH ×2 (15:53→17:18)
--- NOTE | 2020-05-04 00:02 | CON ---
DATE OF CONSULTATION: 05/03/2020 BRIEF HISTORY OF PRESENT ILLNESS: The patient is an 85-year-old gentleman, who was admitted to the hospital at [facility] on April 22, 2020. At that time, his admitting diagnosis was that of septic shock, sepsis of unclear etiology, as well as a history of coronary artery disease, COPD, hypertension, diabetes, and also with a history of rheumatoid disease. Over the last few days, he has had some increasing pain in his left shoulder as well as the onset of ecchymosis within the left shoulder. With these findings, Orthopedic consultation was requested to rule out a septic joint. Of note, the patient was last seen by the orthopedic service on March 02, 2020. At which time, the patient was admitted to the hospital for workup of cardiogenic issues. At that time, the patient was found to have an exam that was consistent with cuff tear arthropathy with a significant history of shoulder pain, inability to lift the arm over his head and radiographic findings consistent of chronic rotator cuff tear arthropathy with a high-riding humeral head, degenerative changes within the shoulder. The patient was discharged after this admission in February, reports that he had continued pain in the shoulder and then after admission was seen by physical therapy approximately 3 or 4 days ago and during therapy, he had an episode, we felt a pop within the shoulder and subsequently he developed a significant ecchymosis down the anterior arm with some increase in pain in the shoulder. With all of these events, some orthopedic consultation requested. For past medical history, social history, family history, as well as his initial examination at the time of admission, all refer you to the history and physical in the chart. His examination with respect to the left shoulder is remarkable for ecchymosis that extends from the shoulder down to the elbow. The forearm also has some bruising from prior IV sites. He is found to have intact sensation in the radial, median, and ulnar distributions and the elbow is asymptomatic. The shoulder itself is able to rock in extension and forward flexion up to approximately 50 degrees very comfortably. In this motion, the patient is able to actively rock the shoulder back and forth with no significant pain what so ever. He is also able to internally and externally rotate with minimal discomfort. He is not able to actively forward elevate above shoulder height or abduct in the scapular plane. Passively, I am able to bring him up to approximately 120 degrees of flexion. However, at end motion, he does have pain and crepitation in the subacromial region. Further palpation shows this high-riding humeral head with subacromial impingement and crepitation as well as what appears to be a new long-head biceps rupture with the biceps muscle now sagged and tenderness to palpation directly at the palpable stump of the long head of the biceps. CT, the patient did have a CT scan done recently that shows this very high-riding humeral head with degenerative changes as well as fluid within the shoulder. On the radiology report, it was felt to be consistent with possible septic shoulder. However, it is also consistent with chronic cuff tear arthropathy with fluid within the joint from this degenerative change as well as his history of rheumatoid disease. Plain x-ray performed prior also shows this cuff tear arthropathy picture. ASSESSMENT: Today on my clinical exam, I do not find evidence for a septic shoulder. He is able to rock the arm and has very good range of motion without abduction of the arm. When abduction is added to this motion, he has pain inability to abduct the arm. However, this is most consistent with cuff tear arthropathy and not with septic arthritis. Given the lack of pain he has with motion below shoulder height, the fact that he had this acute episode 4 days ago with a probable long-head biceps tear and subsequent ecchymoses and the fact the patient is fully anticoagulated on Eliquis, he really I do not feel as a surgical candidate whatsoever for irrigation and debridement of the shoulder as he just does not have the indications for a septic joint and clearly is not a good candidate even if he did at this time with the anticoagulation. Today, I had the pleasure of speaking with Dr. Austin Clements regarding this case. I also discussed with Dr. Clements that an aspiration is not a benign event given the anticoagulation and the likelihood of developing a hemarthrosis and more pain within the shoulder as a result of this. Given the very low index of suspicion for septic arthritis at this time, we will follow the patient expectantly. Certainly should his condition change, we will be happy to reassess for possible aspiration and/or surgical intervention, although this would be predicated on reversal of his anticoagulation. We will follow the patient expectantly while he is in the hospital. The patient appears comfortable with our discussion today as well. Job ID: [id number]
[2020-05-04] MEDS: MEROPENEM 1 GM/50 ML 1 GM in Premix Bag 1 BAG IVPB SCH ×3 (05:06→20:29)
[2020-05-04 05:32] LABS: ALT (SGPT) 17 U/L (8-55); AST (SGOT) 10 U/L (5-34); Albumin 3.2 g/dL (3.4-4.8); Alkaline Phosphatase 106 U/L (40-110); Anion Gap 10 mmol/L (10-20); BUN (Urea Nitrogen) 45 mg/dL (8.4-25.7); Band 1 % (5-11); Bilirubin, Total 0.3 mg/dL (0.2-1.2); Calc. Creatinine Clearance 40 mL/min (70-130); Calcium 8.8 mg/dL (7.8-10.44); Carbon Dioxide 27 mmol/L (23-31); Chloride 102 mmol/L (98-107); Estimated GFR-MDRD 43; Glucose 184 mg/dL (83-110); Hemoglobin 7.8 g/dL (14.0-18.0); Hypochromia SLIGHT = 6-15 cells (100X) (0-5/hpf); Lymphocytes 1 % (21-51); MDiff Complete? YES; Mean Corpuscular HGB CONC 31.6 g/dL (32.0-36.0); Mean Corpuscular Hemoglobin 28.2 pg (27.0-31.0); Mean Corpuscular Volume 89.3 fL (78.0-98.0); Mean Platelet Volume 8.4 fL (7.4-10.4); Monocytes 2 % (0-10); Neutrophil 96 % (42-75); Platelet Count 286 thou/uL (130-400); Platelet Morphology Comment Appears Adequate; Potassium 4.3 mmol/L (3.5-5.1); Protein, Total 6.2 g/dL (5.8-8.1); RBC Distribution Width 17.5 % (11.5-14.5); Red Blood Cell (RBC) Count 2.77 mill/uL (4.70-6.10); Sodium 135 mmol/L (136-145); White Blood Cell (WBC) Count 14.7 thou/uL (4.8-10.8)
[2020-05-04] MEDS: HumaLOG 300 UNITS/3 ML VIAL SC PRN ×2 (07:12→11:33)
[2020-05-04] MEDS: Amiodarone 200 MG TAB PO SCH (08:11)
[2020-05-04] MEDS: Levothyroxine Sodium 75 MCG TAB PO SCH (08:11)
[2020-05-04] MEDS: Hydrocortisone 10 mg Tablet PO SCH ×2 (08:12→16:46)
[2020-05-04] MEDS: Aspirin Chewable 81 MG TAB PO SCH (08:12)
[2020-05-04] MEDS: Apixaban 2.5 MG TAB PO SCH ×2 (08:12→20:29)
[2020-05-04] MEDS: Spironolactone 25 MG TAB PO SCH (08:12)
[2020-05-04] MEDS: Ursodiol 300 MG CAP PO SCH ×2 (08:12→16:46)
[2020-05-04] MEDS: Gabapentin 300 MG CAP PO SCH ×2 (08:13→20:29)
--- NOTE | 2020-05-04 12:35 | PDOC.HOSPP ---
- Subjective Encounter Date: 05/04/20 Encounter Time: 09:40 Subjective: pt doing well, says his left shoulder pain is better. he is asking, is he going home. talk to the CM and Dr. Kimble. hgb drop - and Dr. Kimble wants to keep it above 9. will transfusion. Talk to ortho and pt can fw with Dr. Michel, ortho as outpt. CM working on financial side of IV abx infusion. - Objective Vital Signs & Weight: Vital Signs (12 hours) Temp Pulse Resp BP BP Pulse Ox 05/04/20 11:30 98.3 F 81 17 113/76 99 05/04/20 08:19 97 05/04/20 08:07 97.6 F 18 105/55 L 97 05/04/20 07:38 95 05/04/20 04:00 98.3 F 84 18 112/58 L 95 Weight Admit Weight 169 lb 15.622 oz Weight 177 lb 8 oz Most Recent Monitor Data Heart Rate from ECG 79 NIBP 108/68 NIBP BP-Mean 81 Respiration from ECG 12 SpO2 96 I&O: 05/03/20 05/04/20 05/05/20 06:59 06:59 06:59 Intake Total 1835 2150 Output Total 825 250 Balance 1010 1900 Result Diagrams: 05/04/20 04:12 05/04/20 04:12 Additional Labs: Accuchecks 05/04/20 05/04/20 05/03/20 10:14 06:00 20:26 POC Glucose 229 H 172 H 222 H 05/03/20 13:24 POC Glucose 260 H Hospitalist ROS - Medication Medications: Active Medications Generic Name Dose Route Start Last Admin Trade Name Freq PRN Reason Stop Dose Admin Acetaminophen 650 mg 04/23/20 20:02 04/26/20 21:12 Tylenol PO 650 mg Q6H PRN Administration Headache/Fever or Pain Amiodarone HCl 200 mg 04/23/20 09:00 05/04/20 08:11 Cordarone PO 200 mg DAILY FUNMI Administration Apixaban 2.5 mg 04/22/20 21:00 05/04/20 08:12 Eliquis PO 2.5 mg BID FUNMI Administration Aspirin 81 mg 04/23/20 09:00 05/04/20 08:12 Aspirin Chewable PO 81 mg DAILY FUNMI Administration Gabapentin 300 mg 04/22/20 21:00 05/04/20 08:13 Neurontin PO 300 mg BID FUNMI Administration Hydrocortisone 10 mg 05/02/20 09:00 05/04/20 08:12 Cortef PO 10 mg QAM FUNMI Administration Hydrocortisone 5 mg 05/01/20 17:00 05/03/20 16:29 Cortef PO 5 mg 1700 FUNMI Administration Meropenem 1 gm/ Device 50 mls @ 100 mls/hr 04/30/20 22:00 05/04/20 05:06 IVPB 50 mls Q8HR FUNMI Administration Insulin Human Lispro 0 units 04/22/20 13:53 05/04/20 11:33 Humalog SC 4 units .MODERATE SLIDING SC PRN Administration Moderate Correctional Scale Levothyroxine Sodium 75 mcg 04/29/20 08:00 05/04/20 08:11 Synthroid PO 75 mcg 0800 FUNMI Administration Metoprolol Succinate 25 mg 05/02/20 09:00 05/04/20 08:14 Toprol Xl PO 25 mg DAILY FUNMI Administration Sertraline HCl 25 mg 04/23/20 09:00 05/04/20 08:13 Zoloft PO 25 mg DAILY FUNMI Administration Sodium Chloride 10 ml 04/26/20 09:00 05/04/20 08:11 Flush - Normal Saline IVF 10 ml Q12HR FUNMI Administration Ursodiol 300 mg 04/27/20 17:00 05/04/20 08:12 Actigal PO 300 mg BID-WM FUNMI Administration - Exam General Appearance: NAD, awake alert Eye: PERRL ENT: normocephalic atraumatic Neck: supple Heart: RRR Respiratory: CTAB, normal chest expansion Gastrointestinal: soft, normal bowel sounds Neurological: no focal deficits Hosp A/P - Plan (1) Septic shock due to Escherichia coli Code(s): A41.51 - SEPSIS DUE TO ESCHERICHIA COLI [E. COLI]; R65.21 - SEVERE SEPSIS WITH SEPTIC SHOCK Status: Acute (2) CAD (coronary artery disease) Code(s): I25.10 - ATHSCL HEART DISEASE OF [place] CORONARY ARTERY W/O ANG PCTRS Status: Chronic Qualifiers: (3) COPD (chronic obstructive pulmonary disease) Status: Chronic Qualifiers: COPD type: chronic bronchitis (4) Chronic anticoagulation Code(s): Z79.01 - ORGAN RECOVERY COORDINATOR (CURRENT) USE OF 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 Status: Chronic (5) Chronic stage c diastolic heart failure Code(s): I50.32 - CHRONIC DIASTOLIC (CONGESTIVE) HEART FAILURE Status: Chronic (6) Gout Code(s): M10.9 - GOUT, UNSPECIFIED Status: Chronic Qualifiers: Gout site: multiple sites Encounter type: subsequent encounter Presence of tophus: without tophus (7) HTN (hypertension) Code(s): I10 - ESSENTIAL (PRIMARY) HYPERTENSION Status: Chronic Qualifiers: (8) Moderate aortic regurgitation Code(s): I35.1 - NONRHEUMATIC AORTIC (VALVE) INSUFFICIENCY Status: Chronic (9) Rheumatoid arthritis Code(s): M06.9 - RHEUMATOID ARTHRITIS, UNSPECIFIED Status: Chronic Qualifiers: (10) Severe tricuspid regurgitation Code(s): I07.1 - RHEUMATIC TRICUSPID INSUFFICIENCY Status: Chronic Septic shock with E. coli bacteremia of unclear source---resolved Continue Meropenem IV antibiotics. s/p Dobutamine ID suggested that cholangitis could be one of the possibilities of causing sepsis in this patient. GI was consulted. pneumobilia is chronic in nature compared to previous studies and does not point to a new infection. Biliary source for the E. coli cannot be ruled out. ERCP w..spinterectomy--no filling defect or biliary stone - ursodiol -STEPHANIE negative for vegetations on the defibrillator leads. -back on ASA and eliquis -monitor atleast o/n to make sure no overt bleed [s/p ERCP] . grand dtr may come and help him at home. he has twice a week nurse to come to help. he needs meropenum 1 gm tid for 2 wks -s-top date may 06. talk to CM and likely to be a facility placement. need PICC and remove central line. either home IV abx vs.. facility but it has been decided on 26th PM as family members familiar w.. iV abx infusion that plan to send him home after abx has been arranged. CM today would be able to help us with the home abx arrangement. Meanwhile replace the central line w.. PICC. 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 CAD/ao regurg s/p RESERVATIONS MANAGER-d placement Ischemic CMY CHF,s tage 3 --low dose diuresis --toprol inc'd to 25mg qd --on eliquis. after Picc placed,a nd home IV abx arranged --plan for dc home w.. home hllth?. LUE ecymoses -- venous doppler and arterial doppler neg.. for abn on Left shoulder. plan for CT tomorrow, contrast allergy - prep today --based on the report, will consider ortho c/s and discussion w.. ID, if it is septic arthritis, --also getting sed and cRP. -no fever but mild leukocytosis since PICC placed for merum -- 1gm q8 until may 06 -R-IJ removed. Superficial cellulitis - L. shoulder L - Glenohumoral SEptic arthritis chr Rotator cuff insufficiency - w.. muscles atrophy --cw current merum --further rec.. from ID. --ortho c/s placed. talk to the CM and Dr. Kimble. Acute blood loss anemia Anemia of chronic dz Acute on chronic anemia --requd 1 unti trnasufison - not d/t bleed, but ?dilutaional hgb drop - and Dr. Kimble wants to keep it above 9. will do transfusion. questionable septic arthritis, per CT reading --it appears Rheu art'tis compounded the clinical picture---septic art'tis ruled out as pt able to move his shoulder and pain level is not c/w septic arthritis. depsite elevation in wbcs Leukocytosis -- likely w.. inflammation superimposing, as already on merum Talk to ortho and pt can fw with terri Jaramillo as outpt. CM working on financial side of IV abx infusion. abx only initial sepsis w.. E.coli and presumed cholangitis, as was in the past. based on prior ID note, abx can be stopped on . so home IV abx infusion attempt may not be necessary as 2 more days to go.
[2020-05-05] MEDS: MEROPENEM 1 GM/50 ML 1 GM in Premix Bag 1 BAG IVPB SCH ×3 (04:57→21:00)
[2020-05-05 05:23] LABS: ALT (SGPT) 15 U/L (8-55); AST (SGOT) 11 U/L (5-34); Albumin 3.1 g/dL (3.4-4.8); Alkaline Phosphatase 98 U/L (40-110); Anion Gap 11 mmol/L (10-20); BUN (Urea Nitrogen) 46 mg/dL (8.4-25.7); Bilirubin, Total 0.4 mg/dL (0.2-1.2); Calc. Creatinine Clearance 46 mL/min (70-130); Calcium 8.7 mg/dL (7.8-10.44); Carbon Dioxide 28 mmol/L (23-31); Chloride 103 mmol/L (98-107); Estimated GFR-MDRD 50; Globulin 2.9 g/dL (2.4-3.5); Glucose 115 mg/dL (83-110); Potassium 4.3 mmol/L (3.5-5.1); Sodium 138 mmol/L (136-145)
[2020-05-05 05:31] LABS: Band 10 % (5-11); Lymphocytes 12 % (21-51); MDiff Complete? YES; Mean Corpuscular HGB CONC 32.2 g/dL (32.0-36.0); Mean Corpuscular Hemoglobin 29.1 pg (27.0-31.0); Mean Corpuscular Volume 90.3 fL (78.0-98.0); Mean Platelet Volume 8.1 fL (7.4-10.4); Metamyelocyte 2 % (0-0); Monocytes 6 % (0-10); Neutrophil 70 % (42-75); Platelet Count 291 thou/uL (130-400); Platelet Morphology Comment Appears Adequate; Red Blood Cell (RBC) Count 3.09 mill/uL (4.70-6.10)
[2020-05-05] MEDS: Ursodiol 300 MG CAP PO SCH ×2 (08:41→17:35)
[2020-05-05] MEDS: Spironolactone 25 MG TAB PO SCH (08:41)
[2020-05-05] MEDS: Levothyroxine Sodium 75 MCG TAB PO SCH (08:41)
[2020-05-05] MEDS: Gabapentin 300 MG CAP PO SCH ×2 (08:46→20:59)
[2020-05-05] MEDS: Apixaban 2.5 MG TAB PO SCH (08:46)
[2020-05-05] MEDS: Amiodarone 200 MG TAB PO SCH (08:46)
[2020-05-05] MEDS: Aspirin Chewable 81 MG TAB PO SCH (08:46)
[2020-05-05] MEDS: Hydrocortisone 10 mg Tablet PO SCH ×2 (08:52→17:35)
--- NOTE | 2020-05-05 13:59 | PDOC.HOSPP ---
- Subjective Encounter Date: 05/05/20 Encounter Time: 10:00 Subjective: pt states that he had black tarry stool - hgb stable 9 ' similar episode last year, being on elqiuis. that time he had both EGD and cscope and they could not find the source of the GIB. holding his eliquis. H 7 H this evening. - Objective Vital Signs & Weight: Vital Signs (12 hours) Temp Pulse Resp BP BP Pulse Ox 05/05/20 11:35 98.0 F 86 16 115/64 100 05/05/20 08:46 100 05/05/20 08:00 97.9 F 79 20 117/60 100 05/05/20 04:00 97.9 F 80 18 121/70 97 Weight Admit Weight 169 lb 15.622 oz Weight 179 lb 1.6 oz Most Recent Monitor Data Heart Rate from ECG 79 NIBP 108/68 NIBP BP-Mean 81 Respiration from ECG 12 SpO2 96 I&O: 05/04/20 05/05/20 05/06/20 06:59 06:59 06:59 Intake Total 2150 1390 Output Total 250 325 Balance 1900 1065 Result Diagrams: 05/05/20 04:22 05/05/20 04:22 Additional Labs: Accuchecks 05/05/20 05/05/20 05/04/20 11:28 06:11 20:27 POC Glucose 149 H 118 H 213 H 05/04/20 16:38 POC Glucose 127 H Hospitalist ROS - Medication Medications: Active Medications Generic Name Dose Route Start Last Admin Trade Name Freq PRN Reason Stop Dose Admin Acetaminophen 650 mg 04/23/20 20:02 04/26/20 21:12 Tylenol PO 650 mg Q6H PRN Administration Headache/Fever or Pain Amiodarone HCl 200 mg 04/23/20 09:00 05/05/20 08:46 Cordarone PO 200 mg DAILY FUNMI Administration Aspirin 81 mg 04/23/20 09:00 05/05/20 08:46 Aspirin Chewable PO 81 mg DAILY FUNMI Administration Gabapentin 300 mg 04/22/20 21:00 05/05/20 08:46 Neurontin PO 300 mg BID FUNMI Administration Hydrocortisone 10 mg 05/02/20 09:00 05/05/20 08:52 Cortef PO 10 mg QAM FUNMI Administration Hydrocortisone 5 mg 05/01/20 17:00 05/04/20 16:46 Cortef PO 5 mg 1700 FUNMI Administration Meropenem 1 gm/ Device 50 mls @ 100 mls/hr 04/30/20 22:00 05/05/20 13:41 IVPB 50 mls Q8HR FUNMI Administration Insulin Human Lispro 0 units 04/22/20 13:53 05/04/20 11:33 Humalog SC 4 units .MODERATE SLIDING SC PRN Administration Moderate Correctional Scale Levothyroxine Sodium 75 mcg 04/29/20 08:00 05/05/20 08:41 Synthroid PO 75 mcg 0800 FUNMI Administration Metoprolol Succinate 25 mg 05/02/20 09:00 05/05/20 08:46 Toprol Xl PO 25 mg DAILY FUNMI Administration Sertraline HCl 25 mg 04/23/20 09:00 05/05/20 08:46 Zoloft PO 25 mg DAILY FUNMI Administration Sodium Chloride 10 ml 04/26/20 09:00 05/05/20 09:28 Flush - Normal Saline IVF 10 ml Q12HR FUNMI Administration Spironolactone 12.5 mg 05/05/20 08:00 05/05/20 08:41 Aldactone PO 12.5 mg QAM-WM FUNMI Administration Ursodiol 300 mg 04/27/20 17:00 05/05/20 08:41 Actigal PO 300 mg BID-WM FUNMI Administration - Exam General Appearance: NAD, awake alert Eye: PERRL, anicteric sclera ENT: normocephalic atraumatic Neck: supple Heart: RRR Respiratory: CTAB, normal chest expansion Gastrointestinal: soft, normal bowel sounds Neurological: no focal deficits Psychiatric: normal affect, normal behavior, A&O x 3 Hosp A/P - Plan (1) Septic shock due to Escherichia coli Code(s): A41.51 - SEPSIS DUE TO ESCHERICHIA COLI [E. COLI]; R65.21 - SEVERE SEPSIS WITH SEPTIC SHOCK Status: Acute (2) CAD (coronary artery disease) Code(s): I25.10 - ATHSCL HEART DISEASE OF [place] CORONARY ARTERY W/O ANG PCTRS Status: Chronic Qualifiers: (3) COPD (chronic obstructive pulmonary disease) Status: Chronic Qualifiers: COPD type: chronic bronchitis (4) Chronic anticoagulation Code(s): Z79.01 - RETIREMENT (CURRENT) USE OF 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 Status: Chronic (5) Chronic stage c diastolic heart failure Code(s): I50.32 - CHRONIC DIASTOLIC (CONGESTIVE) HEART FAILURE Status: Chronic (6) Gout Code(s): M10.9 - GOUT, UNSPECIFIED Status: Chronic Qualifiers: Gout site: multiple sites Encounter type: subsequent encounter Presence of tophus: without tophus (7) HTN (hypertension) Code(s): I10 - ESSENTIAL (PRIMARY) HYPERTENSION Status: Chronic Qualifiers: (8) Moderate aortic regurgitation Code(s): I35.1 - NONRHEUMATIC AORTIC (VALVE) INSUFFICIENCY Status: Chronic (9) Rheumatoid arthritis Code(s): M06.9 - RHEUMATOID ARTHRITIS, UNSPECIFIED Status: Chronic Qualifiers: (10) Severe tricuspid regurgitation Code(s): I07.1 - RHEUMATIC TRICUSPID INSUFFICIENCY Status: Chronic Septic shock with E. coli bacteremia of unclear source---resolved Continue Meropenem IV antibiotics. s/p Dobutamine ID suggested that cholangitis could be one of the possibilities of causing sepsis in this patient. GI was consulted. pneumobilia is chronic in nature compared to previous studies and does not point to a new infection. Biliary source for the E. coli cannot be ruled out. ERCP w..spinterectomy--no filling defect or biliary stone - ursodiol -STEPHANIE negative for vegetations on the defibrillator leads. -back on ASA and eliquis -monitor atleast o/n to make sure no overt bleed [s/p ERCP] . grand dtr may come and help him at home. he has twice a week nurse to come to help. he needs meropenum 1 gm tid for 2 wks -s-top date may 06. talk to CM and likely to be a facility placement. need PICC and remove central line. either home IV abx vs.. facility but it has been decided on 26 PM as family members familiar w.. iV abx infusion that plan to send him home after abx has been arranged. CM today would be able to help us with the home abx arrangement. Meanwhile replace the central line w.. PICC. 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 CAD/ao regurg s/p TAILOR GARMENT FITTER-d placement Ischemic CMY CHF,s tage 3 --low dose diuresis --toprol inc'd to 25mg qd --on eliquis. after Picc placed,a nd home IV abx arranged --plan for dc home w.. home hllth?. LUE ecymoses -- venous doppler and arterial doppler neg.. for abn on Left shoulder. plan for CT tomorrow, contrast allergy - prep today --based on the report, will consider ortho c/s and discussion w.. ID, if it is septic arthritis, --also getting sed and cRP. -no fever but mild leukocytosis since PICC placed for merum -- 1gm q8 until may 06 -R-IJ removed. Superficial cellulitis - L. shoulder L - Glenohumoral SEptic arthritis chr Rotator cuff insufficiency - w.. muscles atrophy --cw current merum --further rec.. from ID. --ortho c/s placed. talk to the CM and Dr. Kimble. Acute blood loss anemia Anemia of chronic dz Acute on chronic anemia --requd 1 unti trnasufison - not d/t bleed, but ?dilutaional hgb drop - and Dr. Kimble wants to keep it above 9. will do transfusion. questionable septic arthritis, per CT reading --it appears Rheu art'tis compounded the clinical picture---septic art'tis ruled out as pt able to move his shoulder and pain level is not c/w septic arthritis. depsite elevation in wbcs Leukocytosis -- likely w.. inflammation superimposing, as already on merum Talk to ortho and pt can fw with terri Jaramillo as outpt. CM working on financial side of IV abx infusion. abx only initial sepsis w.. E.coli and presumed cholangitis, as was in the past. based on prior ID note, abx can be stopped on . so home IV abx infusion attempt may not be necessary as 2 more days to go. 2nd black tarry stool - hgb stable 9 ' similar episode last year, being on elqiuis. that time he had both EGD and cscope and they could not find the source of the GIB. holding his eliquis. H & H this evening.
[2020-05-05 16:08] LABS: Hemoglobin 10.2 g/dL (14.0-18.0)
[2020-05-05] MEDS: HumaLOG 300 UNITS/3 ML VIAL SC PRN (17:35)
[2020-05-06 05:15] LABS: Anion Gap 7 mmol/L (10-20); BUN (Urea Nitrogen) 39 mg/dL (8.4-25.7); Calc. Creatinine Clearance 47 mL/min (70-130); Carbon Dioxide 30 mmol/L (23-31); Chloride 105 mmol/L (98-107); Estimated GFR-MDRD 50; Potassium 4.4 mmol/L (3.5-5.1); Sodium 138 mmol/L (136-145)
[2020-05-06 05:16] LABS: ALT (SGPT) 12 U/L (8-55); AST (SGOT) 10 U/L (5-34); Albumin 3.1 g/dL (3.4-4.8); Alkaline Phosphatase 98 U/L (40-110); Bilirubin, Total 0.4 mg/dL (0.2-1.2); Calcium 8.7 mg/dL (7.8-10.44); Globulin 2.8 g/dL (2.4-3.5); Glucose 123 mg/dL (83-110); Protein, Total 5.9 g/dL (5.8-8.1)
[2020-05-06 05:45] LABS: Band 6 % (5-11); Eosinophils 1 % (0-10); Lymphocytes 17 % (21-51); MDiff Complete? YES; Mean Corpuscular HGB CONC 31.2 g/dL (32.0-36.0); Mean Corpuscular Hemoglobin 28.3 pg (27.0-31.0); Mean Corpuscular Volume 90.9 fL (78.0-98.0); Monocytes 7 % (0-10); Neutrophil 69 % (42-75); Platelet Count 289 thou/uL (130-400); RBC Distribution Width 17.5 % (11.5-14.5); Red Blood Cell (RBC) Count 3.19 mill/uL (4.70-6.10); White Blood Cell (WBC) Count 11.3 thou/uL (4.8-10.8)
[2020-05-06] MEDS: MEROPENEM 1 GM/50 ML 1 GM in Premix Bag 1 BAG IVPB SCH ×3 (05:50→18:05)
[2020-05-06] MEDS: Amiodarone 200 MG TAB PO SCH (09:30)
[2020-05-06] MEDS: Hydrocortisone 10 mg Tablet PO SCH ×2 (09:30→18:06)
[2020-05-06] MEDS: Spironolactone 25 MG TAB PO SCH (09:30)
[2020-05-06] MEDS: Aspirin Chewable 81 MG TAB PO SCH (09:30)
[2020-05-06] MEDS: Ursodiol 300 MG CAP PO SCH ×2 (09:31→18:05)
[2020-05-06] MEDS: Gabapentin 300 MG CAP PO SCH (09:31)
[2020-05-06] MEDS: Levothyroxine Sodium 75 MCG TAB PO SCH (09:32)
--- NOTE | 2020-05-06 12:52 | PDOC.HOSPP ---
- Subjective Encounter Date: 05/06/20 Encounter Time: 09:20 Subjective: PT SEEN THIS am, and abx today pre-aranged to get it by 6pm his last dose. so he can go home. will get clearance from cardiology as well. - Objective Vital Signs & Weight: Vital Signs (12 hours) Temp Pulse Resp BP Pulse Ox 05/06/20 11:40 96.8 F L 80 16 132/62 99 05/06/20 07:45 96.3 F L 80 20 112/58 L 97 05/06/20 05:56 140/73 05/06/20 04:00 98.0 F 81 20 90/52 L 95 05/06/20 02:58 97 Weight Admit Weight 169 lb 15.622 oz Weight 180 lb 3.2 oz Most Recent Monitor Data Heart Rate from ECG 79 NIBP 108/68 NIBP BP-Mean 81 Respiration from ECG 12 SpO2 96 I&O: 05/05/20 05/06/20 05/07/20 06:59 06:59 06:59 Intake Total 1390 1330 Output Total 325 225 Balance 1065 1105 Result Diagrams: 05/06/20 04:25 05/06/20 04:25 Additional Labs: Accuchecks 05/06/20 05/06/20 05/05/20 10:50 05:19 19:58 POC Glucose 146 H 108 168 H 05/05/20 17:04 POC Glucose 187 H Hospitalist ROS - Medication Medications: Active Medications Generic Name Dose Route Start Last Admin Trade Name Freq PRN Reason Stop Dose Admin Acetaminophen 650 mg 04/23/20 20:02 04/26/20 21:12 Tylenol PO 650 mg Q6H PRN Administration Headache/Fever or Pain Amiodarone HCl 200 mg 04/23/20 09:00 05/06/20 09:30 Cordarone PO 200 mg DAILY FUNMI Administration Aspirin 81 mg 04/23/20 09:00 05/06/20 09:30 Aspirin Chewable PO 81 mg DAILY FUNMI Administration Gabapentin 300 mg 04/22/20 21:00 05/06/20 09:31 Neurontin PO 300 mg BID FUNMI Administration Hydrocortisone 10 mg 05/02/20 09:00 05/06/20 09:30 Cortef PO 10 mg QAM FUNMI Administration Hydrocortisone 5 mg 05/01/20 17:00 05/05/20 17:35 Cortef PO 5 mg 1700 FUNMI Administration Meropenem 1 gm/ Device 50 mls @ 100 mls/hr 05/06/20 06:00 05/06/20 12:48 IVPB 50 mls Q6HR FUNMI Administration Insulin Human Lispro 0 units 04/22/20 13:53 05/05/20 17:35 Humalog SC 2 units .MODERATE SLIDING SC PRN Administration Moderate Correctional Scale Levothyroxine Sodium 75 mcg 04/29/20 08:00 05/06/20 09:32 Synthroid PO 75 mcg 0800 FUNMI Administration Metoprolol Succinate 25 mg 05/02/20 09:00 05/06/20 09:31 Toprol Xl PO 25 mg DAILY FUNMI Administration Sertraline HCl 25 mg 04/23/20 09:00 05/06/20 09:30 Zoloft PO 25 mg DAILY FUMNI Administration Sodium Chloride 10 ml 04/26/20 09:00 05/06/20 09:32 Flush - Normal Saline IVF 10 ml Q12HR FUNMI Administration Spironolactone 12.5 mg 05/05/20 08:00 05/06/20 09:30 Aldactone PO 12.5 mg QAM-WM FUNMI Administration Ursodiol 300 mg 04/27/20 17:00 05/06/20 09:31 Actigal PO 300 mg BID-WM FUNMI Administration - Exam General Appearance: NAD, awake alert Eye: PERRL ENT: normocephalic atraumatic Neck: supple Heart: RRR Respiratory: CTAB, normal chest expansion Gastrointestinal: soft, normal bowel sounds Neurological: no focal deficits Psychiatric: A&O x 3 Hosp A/P - Plan (1) Septic shock due to Escherichia coli Code(s): A41.51 - SEPSIS DUE TO ESCHERICHIA COLI [E. COLI]; R65.21 - SEVERE SEPSIS WITH SEPTIC SHOCK Status: Acute (2) CAD (coronary artery disease) Code(s): I25.10 - ATHSCL HEART DISEASE OF [place] CORONARY ARTERY W/O ANG PCTRS Status: Chronic Qualifiers: (3) COPD (chronic obstructive pulmonary disease) Status: Chronic Qualifiers: COPD type: chronic bronchitis (4) Chronic anticoagulation Code(s): Z79.01 - INSURANCE CLAIMS ADJUSTER (CURRENT) USE OF 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 Status: Chronic (5) Chronic stage c diastolic heart failure Code(s): I50.32 - CHRONIC DIASTOLIC (CONGESTIVE) HEART FAILURE Status: Chronic (6) Gout Code(s): M10.9 - GOUT, UNSPECIFIED Status: Chronic Qualifiers: Gout site: multiple sites Encounter type: subsequent encounter Presence of tophus: without tophus (7) HTN (hypertension) Code(s): I10 - ESSENTIAL (PRIMARY) HYPERTENSION Status: Chronic Qualifiers: (8) Moderate aortic regurgitation Code(s): I35.1 - NONRHEUMATIC AORTIC (VALVE) INSUFFICIENCY Status: Chronic (9) Rheumatoid arthritis Code(s): M06.9 - RHEUMATOID ARTHRITIS, UNSPECIFIED Status: Chronic Qualifiers: (10) Severe tricuspid regurgitation Code(s): I07.1 - RHEUMATIC TRICUSPID INSUFFICIENCY Status: Chronic Septic shock with E. coli bacteremia of unclear source---resolved Continue Meropenem IV antibiotics. s/p Dobutamine ID suggested that cholangitis could be one of the possibilities of causing sepsis in this patient. GI was consulted. pneumobilia is chronic in nature compared to previous studies and does not point to a new infection. Biliary source for the E. coli cannot be ruled out. ERCP w..spinterectomy--no filling defect or biliary stone - ursodiol -STEPHANIE negative for vegetations on the defibrillator leads. -back on ASA and eliquis -monitor atleast o/n to make sure no overt bleed [s/p ERCP] . grand dtr may come and help him at home. he has twice a week nurse to come to help. he needs meropenum 1 gm tid for 2 wks -s-top date may 06. talk to CM and likely to be a facility placement. need PICC and remove central line. either home IV abx vs.. facility but it has been decided on PM as family members familiar w.. iV abx infusion that plan to send him home after abx has been arranged. CM today would be able to help us with the home abx arrangement. Meanwhile replace the central line w.. PICC. 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 after Picc placed,a nd home IV abx arranged --plan for dc home w.. home hllth?. LUE ecymoses -- venous doppler and arterial doppler neg.. for abn on Left shoulder. plan for CT tomorrow, contrast allergy - prep today --based on the report, will consider ortho c/s and discussion w.. ID, if it is septic arthritis, --also getting sed and cRP. -no fever but mild leukocytosis since PICC placed for merum -- 1gm q8 until may 06 -R-IJ removed. Superficial cellulitis - L. shoulder L - Glenohumoral SEptic arthritis chr Rotator cuff insufficiency - w.. muscles atrophy --cw current merum --further rec.. from ID. --ortho c/s placed. 1st talk to the CM and Dr. Kimble. Acute blood loss anemia Anemia of chronic dz Acute on chronic anemia --requd 1 unti trnasufison - not d/t bleed, but ?dilutaional hgb drop - and Dr. Kimble wants to keep it above 9. will do transfusion. questionable septic arthritis, per CT reading --it appears Rheu art'tis compounded the clinical picture---septic art'tis ruled out as pt able to move his shoulder and pain level is not c/w septic arthritis. depsite elevation in wbcs Leukocytosis -- likely w.. inflammation superimposing, as already on merum Talk to ortho and pt can fw with terri Jaramillo as outpt. CM working on financial side of IV abx infusion. abx only initial sepsis w.. E.coli and presumed cholangitis, as was in the past. based on prior ID note, abx can be stopped on . so home IV abx infusion attempt may not be necessary as 2 more days to go. 2nd black tarry stool - hgb stable 9 ' similar episode last year, being on elqiuis. that time he had both EGD and cscope and they could not find the source of the GIB. holding his eliquis. H & H this evening. 3rd plan for dc today, after last abx course at 6pm completed. cardiology clearance pending.
[2020-05-06 13:59] LABS: Hemoglobin 9.9 g/dL (14.0-18.0)
[2020-05-06 17:27] VITALS: BP 119/69; TEMP 98
--- NOTE | 2020-05-07 11:15 | DIS ---
DATE OF ADMISSION: 04/22/2020 DATE OF DISCHARGE: 05/06/2020 PROCEDURE: Transesophageal echo performed on April 26 showed decreased left ventricular systolic function, dilated left ventricle, mild mitral regurgitation , mild tricuspid regurgitation, lead wires in the right atrium and right ventricle without any obvious murmur. DISCHARGE DIAGNOSES: 1. Septic shock due to be Escherichia coli bacteremia. 2. Coronary artery disease. 3. Chronic obstructive pulmonary disease. 4. Chronic anticoagulation, on Eliquis, was on hold for 2 days due to dark stool and restarted. 5. Chronic stage C diastolic heart failure. 6. Gout. 7. Hypertension. 8. Moderate aortic regurgitation. 9. Rheumatoid arthritis, was on several immunosuppression including recently on Humira. 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 Left shoulder pain, thought to be due to Degenerative joint disease with coexisting rheumatoid arthritis. 12. Mild Adrenal insufficiency, corrected with hydrocortisone. DISCHARGE MEDICATIONS: 1. Amiodarone 200 mg daily. 2. Toprol-XL 25 mg daily, which was a new addition during this hospitalization. 3. Eliquis 2.5 mg twice a day. 4. Allopurinol 100 mg daily. 5. Xanax 0.25 mg at bedtime. 6. Aspirin 81 mg daily. 7. Dexilant 30 mg daily. 8. Gabapentin 300 mg three times a day. 9. Levothyroxine changed from 25 mcg to 75 ucg daily. 10. Claritin 10 mg daily. 11. Magnesium chloride 64 mg daily. 12. Dulera two puffs twice a day. 13. Multivitamin therapeutic one tablet daily. 14. Sertraline 25 mg daily. 15. Spironolactone 25 mg daily. 16. Torsemide 10 mg daily as needed. 17. Tramadol 50 mg q.6 hours as needed. 18. Ventolin two puffs q.6 hours. 19. Hydrocortisone 10 mg in am and 5 mg in pm. I called the daughter on 4th morning and updated that they will have new medications in the pharmacy, that has to be picked up, as patient was discharged on 3rd evening after 7PM. Consultants - Cardiology, ID, Orthopedics. Please see history and physical, consultants on the daily progress notes for more details and today's progress note for discharge on May 06. He had almost 15 days' hospital stay. HOSPITAL COURSE: This is a 85-year-old gentleman admitted with septic shock due to E coli bacteremia. There was concern whether this sepsis is due to recurrence of cholangitis with presence of pigmented stone recurrence in the bile duct versus pyelonephritis versus colonization of the AICD lead. In that regard, transesophageal echo performed and that was negative for any masses around the AICD lead. There was also workup done toward diagnosis of cholangitis. He had ERCP, and sphincterectomy was completed, Lliver function test abnormality could be post residual procedure. GI input toward his pneumophila could be chronic in nature compared to the previous studies and he went through the ERCP with sphincterectomy and they did not see any filling defect or biliary stone, so he was given ursodiol. He had an elevated TSH and he is on amiodarone, so this could be due to amiodarone-induced hypothyroidism and he was on a subtherapeutic supplementation , so the dose is increased from 25 mcg to 75 mcg daily. I request the PCP to repeat the TSH in 2 to 4 weeks. For his diastolic heart failure, coreg was replaced with Toprol XL. He had mild adrenal insufficiency that was corrected with short course of hydrocortisone and he will be continuing the hydrocortisone until seen by Dr. Kimble. He had a new left shoulder pain and ecchymosis on the upper left arm Both Doppler ultrasound and arterial Doppler were negative for any vascular abnormalities. CT report of the shoulder suggested septic arthritis but that was ruled out by orthopedic evaluation it was felt that chronicity it is due to rheumatoid arthritis and DJD. He had initially a central line that was replaced with PICC line for completing his antibiotics of meropenem 1 g q.8 hours. His last date was in May 06, that was completed with the PICC line placement. PICC line was removed prior to the discharge. DISCHARGE INSTRUCTIONS: Activity as tolerated. Healthy heart diet. Follow up with primary care physician in one week. Labs to be followed at primary care physician office are TSH in 2 to 4 weeks and random cortisol during that time. Advanced heart failure clinic followup with Dr. Kimble in 2 to 4 weeks. [employer] Business Segment Leader followup per their clinic appointment. Discharge time took over 35 minutes. Job ID: [id number] [facility]
== END 2020-05-06 20:36 | disposition home or self-care (01) | DRG 871 ==
LOC: ERS 11:17 → ERHOLD 13:30 → CCU 20:07 → IMCU/EMU 04-23 16:37 → 2NO 04-27 13:04
PROVIDERS: ADMIT Internal Medicine; ATTEND Internal Medicine
PROC: 3E033XZ Introduction of Vasopressor into Peripheral Vein, Percutaneous Approach (ICD-10-PCS; principal; 2020-04-22)
PROC: B24BZZ4 Ultrasonography of Heart with Aorta, Transesophageal (ICD-10-PCS; 2020-04-26)
PROC: 0F798ZZ Dilation of Common Bile Duct, Via Natural or Artificial Opening Endoscopic (ICD-10-PCS; 2020-04-27)
PROC: 02HV33Z Insertion of Infusion Device into Superior Vena Cava, Percutaneous Approach (ICD-10-PCS; 2020-05-02)
PROC: B548ZZA Ultrasonography of Superior Vena Cava, Guidance (ICD-10-PCS; 2020-05-02)
DX: A41.51 Sepsis due to Escherichia coli [E. coli] (principal); R65.21 Severe sepsis with septic shock; G93.41 Metabolic encephalopathy; N17.9 Acute kidney failure, unspecified; I13.0 Hypertensive heart and chronic kidney disease with heart failure and stage 1 through stage 4 chronic kidney disease, or unspecified chronic kidney disease; I50.22 Chronic systolic (congestive) heart failure; I48.20 Chronic atrial fibrillation, unspecified; E27.40 Unspecified adrenocortical insufficiency; M06.9 Rheumatoid arthritis, unspecified; I08.0 Rheumatic disorders of both mitral and aortic valves; E11.22 Type 2 diabetes mellitus with diabetic chronic kidney disease; J44.9 Chronic obstructive pulmonary disease, unspecified; F41.9 Anxiety disorder, unspecified; M54.5 Low back pain; G89.29 Other chronic pain; I25.10 Atherosclerotic heart disease of native coronary artery without angina pectoris; N40.0 Benign prostatic hyperplasia without lower urinary tract symptoms; I25.5 Ischemic cardiomyopathy; E03.9 Hypothyroidism, unspecified; I25.2 Old myocardial infarction; Z95.810 Presence of automatic (implantable) cardiac defibrillator; Z90.49 Acquired absence of other specified parts of digestive tract; Z95.1 Presence of aortocoronary bypass graft; Z87.891 Personal history of nicotine dependence; Z88.0 Allergy status to penicillin; Z91.041 Radiographic dye allergy status; Z79.82 Long term (current) use of aspirin; Z79.899 Other long term (current) drug therapy; Z79.51 Long term (current) use of inhaled steroids; Z79.01 Long term (current) use of anticoagulants
CPT/HCPCS: 36415; 36416; 36430; 36556; 36569; 51701; 71045; 74177; 74330; 80053; 80061; 80400; 81003; 82274; 82533; 82553; 82728; 83036; 83540; 83550; 83605; 83690; 83735; 83880; 84145; 84439; 84443; 84484; 85007; 85025; 85027; 85652; 86140; 86850; 86900; 86901; 87040; 87077; 87149; 87186; 93306; 93312; 93923; 96361; 96365; 96366; 96367; 96368; 96375; C1751; J0692; J0834; J1100; J1200; J1250; J1644; J1885; J1940; J2001; J2185; J2405; J2704; J2930; J3010; J3370; J3475; J7512; P9016; Q0163; Q9967; S0028

== ENCOUNTER 2021-03-07 12:03 | Outpatient (CLI) | payer MEDICARE | END 2021-03-07 12:04 | disposition home or self-care (01) | LOC: BICRAD 12:03 | PROVIDERS: ATTEND Internal Medicine Pulmonary Disease | DX: R06.00 Dyspnea, unspecified (principal) | CPT/HCPCS: 71046 ==